=== PATIENT | male | born 1935 | race Caucasian/White ===

== ENCOUNTER → 2016-04-06 | Outpatient (CLI) | payer MEDICARE ==
[~2016-04-06] MED LIST: ASP325T PO; ASP81TEC; ASPI-586 PO; ATR20T PO; AVOD0.5CAP; CALC-250 PO; CALC-6 PO; CEPH-507 PO; CETI-9 PO; CIPR500T4 PO; CIPR500T78 PO; CITA20TA4 PO; CLOP75TA PO; CYCL10TA9 PO; DCS100C PO; DILT60TA PO; DILT90TA PO; DIPH25CA79 PO; DIPH25TA82 PO; DLT30T PO; DOCU100C37 PO; DOCU100T7 PO; FENO135C PO; FERR-57 PO; FESO4TAB2 PO; FINA5TAB PO; FINA5TAB6 PO; FURO40TA4 PO; GARL1500 PO; GARL400T13; GEMF600T3 PO; HYDR-2890 PO; HYDR-3812 PO; HYDR-3876 PO; HYDR-757 PO; HYOS0.1217 PO; LACT1CAP15 PO; LEVO500T69 PO; LEVO50TA6 PO; LORA-726 PO; LOVA40TA2 PO; LRT10T PO; LVF500T GT; LVT.05T PO; MAGN400O7 PO; MAGN400T6 PO; MELO-195 PO; MIRA50TA PO; MTP25TSR PO; MULT-1019 PO; MULT-974 PO; MULT1TAB; MV M PO; NF-SOLIF5T PO; NITR0.4T SL; NITR0.4T39 SL; OMEG1CAP24 PO; OMEG1CAP51 PO; OMG1KC PO; OSLT75C PO; OXYC-12 PO; PHEN100T17 PO; PHEN200T27 PO; POTA10CA43 PO; POTA2TAB15 PO; POTA2TAB5 PO; PRAM0.252 PO; PRAM0.257 PO; PREVAGEN PO; QNS260T PO; ROSU20TA28 PO; SPIR25TA3 PO; SPRN25T PO; TAMS0.4C2 PO; TEMA30CA PO; TERB250T PO; TERB250T10 PO; TMSL.4C PO; TMZP15C PO; TOLT2CAP PO; TRAZ150T72 PO; VITA150T; amox; amox-clav PO
--- OUTSIDE RECORDS SUMMARY | 2016-04-06 11:57 | XMS REPORT | Continuity of Care Document ---
Author Author [facility] Organization [facility] Address Unknown Phone Unavailable Care Team Providers Care Snowblower Mechanic Name Role Phone Min Lindsey PCP [phone] Source Comments Some departments are not documenting in the electronic medical record. If you do not see the information that you expected, contact Release of Information in the Health Information Management department at [phone] for further assistance in locating additional records.[facility] Active Allergies and Adverse Reactions No Known Allergies Current Medications Prescription Sig. Disp. Refills Start End Date Status Date gemfibrozil (LOPID) 600 Take 600 mg by mouth Active mg tablet daily. traZODone (DESYREL) 150 Take 150 mg by mouth at Active mg tablet bedtime daily. lovastatin(+) (MEVACOR) Take 40 mg by mouth at Active 40 mg tablet bedtime daily. levothyroxine (SYNTHROID) Take 50 mcg by mouth Active 50 mcg tablet daily. docusate (COLACE) 100 mg Take by mouth. 100mg in Active capsule the morning and 200mg in evening solifenacin(+) (VESICARE) Take 1 Tab by mouth 30 Tab 3 08/20/19 Active 10 mg tablet daily. 16 pramipexole (MIRAPEX) Take 0.25 mg by mouth Active 0.25 mg tablet twice daily. fish oil /omega-3 fatty Take 2 Caps by mouth Active acids (SEA-OMEGA) daily. 340/1000 mg capsule diphenhydrAMINE Take 25 mg by mouth twice Active (BENADRYL) 25 mg capsule daily. calcium carbonate/vitamin Take 1 Tab by mouth Active D-3 (OSCAL-500+D) 1250 daily. Calcium Carb mg/200 unit tablet 1250mg delivers 500mg elemental Ca vitamins, multiple cap Take 1 Cap by mouth Active daily. tamsulosin (FLOMAX) 0.4 Take 0.4 mg by mouth Active mg capsule daily. Do not crush, chew or open capsules. diltiazem (CARDIZEM) 90 Take 45 mg by mouth at Active mg tablet bedtime daily. for leg cramps cetirizine (ZYRTEC) 10 mg Take 10 mg by mouth Active tablet daily. Indications: SEASONAL ALLERGIC RHINITIS phenazopyridine Take 1 Tab by mouth twice 6 Tab 0 09/15/19 Active (PYRIDIUM) 200 mg tablet daily as needed (take as 16 needed for burning with urination). This will turn your urine orange aspirin EC 81 mg tablet Take 1 Tab by mouth twice 90 Tab 3 09/17/19 Active weekly. Monday and MondayWait 5 days before resuming your aspirin mirabegron(+) ER Take 1 Tab by mouth 30 Tab 3 01/08/20 Active (MYRBETRIQ ER) 50 mg daily. 16 tablet ciprofloxacin HCl (CIPRO) Take 1 Tab by mouth twice 2 Tab 0 03/04/20 Active 500 mg tablet daily. 16 Active Problems Problem Noted Date Malignant neoplasm of overlapping sites of bladder (HCC) 10/02/2015 Bladder cancer (HCC) 03/10/2015 Overview: 02/10/2014: Incedental finding of CIS of the bladder on TURP specimen performed for obstructive LUTS 04/01/14: repeat TURP - no residual disease - No BCG, no recurrent lesions on 3 and 6 month follow up cystoscopies 02/16/15: Cystoscopy: Findings: Bladder wall: inflamed with 3 bladder lesions. 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 Sr - cystoscopy - "red areas" Bothered by irritative voiding symptoms - no lasting benefit from Vesicare. 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 He has elected for observation, which has been performed by Dr. Sr, who has noted areas of redness on surveillance cystoscopy in 05/2015 as well as 07/27/15. Mr. Kennedy is very bothered by irritative voiding symptoms and hasn't noted much benefit from Vesicare. He emptied completely in clinic today with a PVR of 0 mls. We have concern that Mr. Kennedy has residual tumor in his bladder. We have recommended repeat resection with plan for BCG following this. We discussed BCG in depth today and he is willing to proceed now that he understands it is not chemotherapy. - Will plan on proceeding to the OR on 09/15/[address] Ro for blue light cystoscopy, TURBT. - Consent obtained in clinic today after discussing risks and benefits which include infection, bleeding, injury to urethra/bladder/ureter, bladder perforation, need for open surgery/urethral catheter/ureteral stent/blood transfusion/re-operation, inability to remove tumor, heart attack, stroke, deep venous thrombosis, pulmonary embolus, and . Informed consent was obtained. - Pre-anesthesia testing: none - Consults: none - Imaging: none - Antibiotics warehouse insulation worker to the OR: Ancef - Additional medications warehouse insulation worker to the OR: none - We also increased his Vesicare dose and added Mirabegron 50mg daily. - This plan was discussed with Dr. Amaro who directed this plan of care. Most Recent Encounters Date Type Specialty Providers Description 04/01/2016 Telephone Oncology Tasia Amaro, Imaging 04/01/2016 Orders Only Oncology Tasia Amaro Malignant neoplasm of urinary bladder, unspecified site (HCC) (Primary Dx) 04/01/2016 Documentation Tasia Hebert MD 03/14/2016 Telephone Tasia Hebert Results 03/04/2016 Procedure visit UrologTasia Hoffman, Malignant neoplasm of overlapping sites of bladder (HCC) (Primary Dx) 03/04/2016 Hospital Tasia Amaro, Malignant neoplasm of Encounter overlapping sites of bladder 01/08/2016 Refill Tasia Hebert MD 01/08/2016 Telephone Oncology Tasia Amaro, Appointment; Medication MD Refill Immunizations Name Dates Previously Given Next Due Flu Vaccine=>3 YO 01/08/2015 (Historical) Pneumococcal Vaccine 02/08/2015 (23-Delfina Adult) Social History Tobacco Use Types Packs/Day Years Used Date Former Smoker Cigarettes, Cigars 1.5 20 Quit: 03/27/1974 Smokeless Tobacco: Never Used Alcohol Use Drinks/Week oz/Week Comments No Last Filed Vital Signs Vital Sign Reading Time Taken Blood Pressure 92/51 03/04/2016 2:39 PM CROP FARM HELPER Pulse 138 03/04/2016 2:39 PM CROP FARM HELPER Temperature 36.5 C (97.7 F) 09/15/2015 1:15 PM CDT Respiratory Rate - - Height 1.676 m (5' 6") 03/04/2016 2:39 PM CROP FARM HELPER Weight 92.987 kg (205 lb) 03/04/2016 2:39 PM CROP FARM HELPER Body Mass Index 33.1 03/04/2016 2:39 PM CROP FARM HELPER Oxygen Saturation 91% 09/15/2015 1:15 PM CDT Plan of Care Date Type Specialty Providers Description 06/23/2016 Appointment Urology Tasia Amaro MD [address] [facility] [address] [place] [address] [phone] (Fax) Health Maintenance Due Date Last Done Comments Physical (Comprehensive) 1942 Exam Pertussis Vaccine 1945 Tetanus Vaccine 06/19/1951 Shingles Vaccine 1994 Influenza Vaccine 11/26/2015 01/08/2015 Prevnar/Pneumovax (#2) 02/09/2016 02/08/2015 Procedures from Last 3 Months Procedure Name Priority Date/Time Associated Diagnosis Comments [place] CYSTOURETHROSCOPY Routine 03/06/2016 Malignant neoplasm of Results for this 11:48 AM CROP FARM HELPER overlapping sites of procedure are in the bladder (HCC) results section. Results from Last 3 Months CYTOGENETICS SCAN (03/11/2016 3:57 PM) Narrative Ordered by an unspecified provider. CYSTOSCOPY (03/06/2016 11:48 AM) Narrative Tasia Amaro MD 03/06/2016 11:48 AM Date : 03/06/2016 Surgeon: Tasia Amaro MD, [facility] Preoperative Diagnosis: bladder cancer Postoperative Diagnosis: bladder cancer Principal Procedure: Flexible Cystoscopy Description of procedure: After the consent was obtained, the patient was taken to the cystoscopy suite. The patient was patient was placed in the lithotomy position. Two percent lidocaine jelly was administered into the urethral for local anesthesia. The genital area was prepped and draped in the normal sterile fashion. A flexible cystoscope was advanced into the patient's urethra and then into the bladder. The bladder was systematically examined and visualized in its entirety. Both ureteral orifices were note to be normal in appearance and location. No evidence of any tumors was seen. On the right anterior wall of the bladder were some mucosal changes consistent with the previous site of resection but no obivous tumor was seen. The scope was retroflexed and the anterior bladder and bladder neck inspected. Again, no evidence of any tumors was seen. The scope was then removed. The patient tolerated the procedure well. He was given antibiotics to cover the instrumentation. He was discharged from the clinic in stable condition. CHROMOSOMES FISH URINE (03/04/2016 3:32 PM) Component Value Range Chromosomes Fish Urine SEE SENIOR HEALTH EDUCATOR FOR REPORT NON-BRASS WIND INSTRUMENTS TUBE BENDER CYTOLOGY (BODY FLUIDS/TISSUE) (03/04/2016 10:14 AM) Component Value Range Cytology [facility] [email or web address] Leslie Young MD, Director Cytopathology Department of Pathology and Laboratory Medicine [address] [place], [place] [id number] Office: [phone] CYTOLOGY REPORT NAME: LEONID KENNEDY CYTOLOGY #: [id number] MR #: [id number] ALT ID #: [id number] #: [id number] LOCATION: UROL DATE OF PROCEDURE: 03/04/2016 10:14 AGE: 80 SEX: M DATE RECEIVED: 03/07/2016 : 1935 TIME RECEIVED: 10:14 PHYSICIAN: TASIA AMARO MD DATE OF REPORT: 03/09/2016 COPY TO: DATE OF PRINTIN03/09/2016 HISTORY: Date of Last Menstrual Period: None Given Menstrual History: None Given Contraceptive History: None Given Cancer History: None Given Infection History: None Given Treatment History: None Given Other Clinical Conditions: None Given CLINICAL DIAGNOSIS: 80 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 MATERIAL RECEIVED: A: Urine (Voided) ################################################## ###################### Final Diagnosis: A. Urine (Voided): Suspicious for high-grade urothelial carcinoma. Attestation: By this signature, I attest that I have personally formulated the final interpretation expressed in this report and that the above diagnosis is based upon my examination of the slides and/or other material indicated in this report. 03/07/2016 +++Electronically Signed Out By Ramonita Clark MD, Attending Physician+++ Cervical cytology is a SCREENING TEST primarily for detecting cancers and precancerous lesions. This screening test has a well documented false negative rate. Your patient's pap test results should be interpreted in conjunction with history and clinical findings. Reported using [employer] terminology. ################################################## ######################
== END ==
LOC: RAD 11:53
PROVIDERS: ATTEND Urology
DX: C67.9 Malignant neoplasm of bladder, unspecified (principal)

== ENCOUNTER → 2016-04-07 | Outpatient (CLI) | payer MEDICARE ==
[~2016-04-07] MED LIST changes: +CATHETER FLUSH 10 ML SYR IV PRN; +IOHEXOL 350 MG/ML 100 ML (OMNIPAQUE 350) VIAL IV ONE; +NS 100 ML (IVPB) BAG IV ONE
--- OUTSIDE RECORDS SUMMARY | 2016-04-07 07:53 | XMS REPORT | Continuity of Care Document ---
Author Author [facility] Organization [facility] Address Unknown Phone Unavailable Care Team Providers Care Band Sewer Name Role Phone Min Lindsey PCP [phone] Source Comments Some departments are not documenting in the electronic medical record. 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 Sr - cystoscopy - "red areas" Bothered by irritative voiding symptoms - no lasting benefit from Vesicare. 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 [...] Consults: none - Imaging: none - Antibiotics special education teaching assistant to the OR: Ancef - Additional medications special education teaching assistant to the OR: none - We also increased his Vesicare dose and added Mirabegron 50mg daily. - This plan was discussed with Dr. Amaro who directed this plan of care. Most Recent Encounters Date Type Specialty Providers Description 04/06/2016 Orders Only Oncology Tasia Amaro Malignant neoplasm of urinary bladder, unspecified site (HCC) (Primary Dx) 04/01/2016 Telephone Tasia Barrett Imaging 04/01/2016 Orders Only Oncology Tasia Amaro Malignant neoplasm of urinary bladder, unspecified site (HCC) (Primary Dx) 04/01/2016 Documentation Tasia Hebert MD 03/14/2016 Telephone Tasia Hebert Results 03/04/2016 Procedure visit UrologTasia Hoffman Malignant neoplasm of overlapping sites of bladder (HCC) (Primary Dx) 03/04/2016 Hospital Tasia Amaro, Malignant neoplasm of Encounter overlapping sites of bladder 01/08/2016 Refill UrologTasia Hoffman MD 01/08/2016 Telephone Oncology Tasia Amaro, Appointment; [...] Taken Blood Pressure 92/51 03/04/2016 2:39 PM MOLDING UTILITY WORKER Pulse 138 03/04/2016 2:39 PM MOLDING UTILITY WORKER Temperature 36.5 C (97.7 F) 09/15/2015 1:15 PM CDT Respiratory Rate - - Height 1.676 m (5' 6") 03/04/2016 2:39 PM MOLDING UTILITY WORKER Weight 92.987 kg (205 lb) 03/04/2016 2:39 PM MOLDING UTILITY WORKER Body Mass Index 33.1 03/04/2016 2:39 PM MOLDING UTILITY WORKER Oxygen Saturation 91% 09/15/2015 1:15 PM CDT Plan of Care Date Type Specialty Providers Description 06/23/2016 Appointment Urology Tasia Amaro MD [address] [facility] [address] [place] [address] [phone] (Fax) Health Maintenance Due Date Last Done Comments Physical (Comprehensive) 1942 Exam Pertussis Vaccine 1945 Tetanus Vaccine 06/19/1951 Shingles Vaccine 1994 Influenza Vaccine 11/26/2015 01/08/2015 Prevnar/Pneumovax (#2) 02/09/2016 02/08/2015 Procedures from Last 3 Months Procedure Name Priority Date/Time Associated Diagnosis Comments [place] CYSTOURETHROSCOPY Routine 03/06/2016 Malignant neoplasm of Results for this 11:48 AM MOLDING UTILITY WORKER overlapping sites of procedure are in the bladder (HCC) results section. Results from Last 3 Months CYTOGENETICS SCAN (03/11/2016 3:57 PM) Narrative Ordered by an unspecified provider. CYSTOSCOPY (03/06/2016 11:48 AM) Narrative Tasia Amaro MD 03/06/2016 11:48 AM Date : 03/06/2016 Surgeon: Tasia Amaro MD, FACS Preoperative Diagnosis: bladder cancer Postoperative Diagnosis: bladder [...] Component Value Range Chromosomes Fish Urine SEE INTERNET MARKETING EXECUTIVE FOR REPORT NON-PATHOLOGY SPECIALIST CYTOLOGY (BODY FLUIDS/TISSUE) (03/04/2016 10:14 AM) Component Value Range Cytology [facility] [email or web address] Leslie Young MD, Director Cytopathology Department of Pathology and Laboratory Medicine [address] [place] [id number] Office: [phone] CYTOLOGY REPORT NAME: LEONID KENNEDY CYTOLOGY #: [id number] MR #: [id number] ALT ID #: [id number] #: [id number] LOCATION: UROL DATE OF PROCEDURE: 03/04/2016 10:14 [...] and/or other material indicated in this report. mp/03/07/2016 +++Electronically Signed Out By Ramonita Clark MD, Attending Physician+++ Cervical cytology is a SCREENING TEST primarily for detecting cancers and precancerous lesions. This screening test has a well documented false negative rate. Your patient's pap test results should be interpreted in conjunction with history and clinical findings. Reported using [employer] terminology. ################################################## ######################
--- NOTE | 2016-04-07 12:28 | Diagnostic Imaging Report ---
PROCEDURE: CT abdomen and pelvis with and without contrast. TECHNIQUE: Precontrast acquisitions were acquired through the abdomen and pelvis. Multiple contiguous axial images were obtained through the abdomen and pelvis after the administration of intravenous contrast. INDICATION: Bladder cancer. 100 mL of Omnipaque-350 is administered intravenously. COMPARISON: 10/07/2015. FINDINGS: The lung bases demonstrate minimal scarring. The liver has a few subcentimeter hypodense lesions and also hyperenhancing foci up to 1.1 cm in size also similar to the previous exam too small to accurately characterize. These are favored to be benign as they have been stable since July 2014. The gallbladder demonstrates no calcified stone. The spleen is not enlarged. The pancreas and the adrenal glands appear unremarkable. The kidneys have symmetric enhancement and contrast excretion. There are simple-appearing cysts up to 5.5 cm in size in the upper pole of the left kidney. The unenhanced phase demonstrates no kidney stones. There is no hydronephrosis. There is a neobladder with thickened wall seen inferiorly. This represents volume averaging with prostatic tissue as well. This is stable in appearance from multiple prior exams. The abdominal aorta is normal in caliber. No para-aortic significantly enlarged lymph node is seen. No significant free fluid or fluid collection in the abdomen or pelvis is noted. There are several diverticula seen in the sigmoid and descending colon with no evidence of diverticulitis. There are surgical sutures in the splenic flexure region compatible with ileocolic anastomosis. The osseous structures demonstrate degenerative changes. IMPRESSION: 1. Neobladder with soft tissue thickening along its inferior aspect near its interface with the enlarged prostate. This is stable from multiple prior exams and is likely benign. 2. Diverticulosis. No diverticulitis. 3. Multiple tiny foci of enhancement and hypodensity within the liver stable from prior studies likely benign. Dictated by: Dictated on workstation # [id number]
== END ==
LOC: RAD 07:49
PROVIDERS: ATTEND Urology
DX: C67.9 Malignant neoplasm of bladder, unspecified (principal)
CPT/HCPCS: 74178

== ENCOUNTER 2016-06-06 21:27 | Observation (INO) | payer MEDICARE ==
[~2016-06-06] VITALS: Ht 167.6 cm; Wt 93.0 kg
[~2016-06-06 21:27] MED LIST changes: -CATHETER FLUSH 10 ML SYR IV PRN; -IOHEXOL 350 MG/ML 100 ML (OMNIPAQUE 350) VIAL IV ONE; -MIRA50TA PO; -NITR0.4T SL; -NITR0.4T39 SL; -NS 100 ML (IVPB) BAG IV ONE; -POTA2TAB5 PO; -PRAM0.252 PO; -ROSU20TA28 PO
--- OUTSIDE RECORDS SUMMARY | 2016-06-06 21:33 | XMS REPORT | Continuity of Care Document ---
Author Author [facility] Organization [facility] Address Unknown Phone Unavailable Care Team Providers Care Neonatal Icu Coordinator Name Role Phone Min Lindsey PCP [phone] Source Comments Some departments are not documenting in the electronic medical record. If you do not see the information that you expected, contact Release of Information in the Health Information Management department at [phone] for further assistance in locating additional records.[facility] Active Allergies and Adverse Reactions No Known [...] MondayWait 5 days before resuming your aspirin ciprofloxacin HCl (CIPRO) Take 1 Tab by mouth twice 2 Tab 0 03/04/20 Active 500 mg tablet daily. 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 Sr - cystoscopy - "red areas" Bothered by irritative voiding symptoms - no lasting benefit from Vesicare. 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 [...] Consults: none - Imaging: none - Antibiotics insulation extruder operator to the OR: Ancef - Additional medications insulation extruder operator to the OR: none - We also increased his Vesicare dose and added Mirabegron 50mg daily. - This plan was discussed with Dr. Amaro who directed this plan of care. Most Recent Encounters Date Type Specialty Providers Description 04/07/2016 Refill Urology Cory Amaro MD 04/06/2016 Orders Only Oncology Cory Amaro, Malignant neoplasm of urinary bladder, unspecified site (HCC) (Primary Dx) 04/01/2016 Telephone Oncology Cory Amaro Imaging 04/01/2016 Orders Only Oncology Cory Amaro, Malignant neoplasm of urinary bladder, unspecified site (HCC) (Primary Dx) 04/01/2016 Documentation Urology Cory Amaro MD 03/14/2016 Telephone Urology Cory Amaro Results Immunizations Name Dates Previously Given Next Due Flu Vaccine=>3 YO 01/08/2015 (Historical) Pneumococcal Vaccine 02/08/2015 (23-Delfina Adult) Social History Tobacco Use Types Packs/Day Years Used Date Former Smoker Cigarettes, Cigars 1.5 20 Quit: 03/27/1974 Smokeless Tobacco: Never Used Alcohol Use Drinks/Week oz/Week Comments No Last Filed Vital Signs Vital Sign Reading Time Taken Blood Pressure 92/51 03/04/2016 2:39 PM DATA REPORTING ANALYST Pulse 138 03/04/2016 2:39 PM DATA REPORTING ANALYST Temperature 36.5 C (97.7 F) 09/15/2015 1:15 PM CDT Respiratory Rate - - Height 1.676 m (5' 6") 03/04/2016 2:39 PM DATA REPORTING ANALYST Weight 92.987 kg (205 lb) 03/04/2016 2:39 PM DATA REPORTING ANALYST Body Mass Index 33.1 03/04/2016 2:39 PM DATA REPORTING ANALYST Oxygen Saturation 91% 09/15/2015 1:15 PM CDT Plan of Care Date Type Specialty Providers Description 06/23/2016 Appointment Urology Cory Amaro MD [address] [facility] [address] [place] [address] [phone] (Fax) Health Maintenance Due Date Last Done Comments Physical (Comprehensive) 1942 Exam Pertussis Vaccine 1945 Tetanus Vaccine 06/19/1951 Shingles Vaccine 1994 Influenza Vaccine 11/26/2015 01/08/2015 Prevnar/Pneumovax (#2) 02/09/2016 02/08/2015 Results from Last 3 Months CYTOGENETICS SCAN (03/11/2016 3:57 PM) Narrative Ordered by an unspecified provider.
[2016-06-06 21:44] LABS: BASOPHILS % (AUTO) 0 % (0-10); EOSINOPHILS # (AUTO) 0.4 10^3/uL (0.0-0.3); EOSINOPHILS % (AUTO) 7 % (0-10); LYMPHOCYTES % (AUTO) 16 % (12-44); MEAN CORPUSCULAR HEMOGLOBIN 32 PG (25-34); MEAN CORPUSCULAR HGB CONC 34 G/DL (32-36); MEAN CORPUSCULAR VOLUME 92 FL (80-99); MEAN PLATELET VOLUME 9.2 FL (7.4-10.4); MONOCYTES # (AUTO) 0.5 X 10^3 (0.0-1.0); MONOCYTES % (AUTO) 8 % (0-12); NEUTROPHILS # (AUTO) 4.1 X 10^3 (1.8-7.8); NEUTROPHILS % (AUTO) 69 % (42-75); PLATELET COUNT 171 10^3/uL (130-400); RED BLOOD COUNT 4.92 10^6/uL (4.35-5.85); RED CELL DISTRIBUTION WIDTH 13.8 % (10.0-14.5)
[2016-06-06] MEDS ORDERED: RX-NITROGLYCERIN 0.4 MG TAB BTL 25'S SL ONE (21:45)
[2016-06-06 21:50] LABS: INR 1.1 (0.8-1.4)
[2016-06-06 22:01] LABS: ALANINE AMINOTRANSFERASE 31 U/L (0-55); ANION GAP 13 MMOL/L (5-14); BILIRUBIN,TOTAL 0.5 MG/DL (0.1-1.0); BLOOD UREA NITROGEN 19 MG/DL (7-18); BUN/CREATININE RATIO 14; CALCIUM 9.2 MG/DL (8.5-10.1); CARBON DIOXIDE 26 MMOL/L (21-32); CHLORIDE 105 MMOL/L (98-107); CREATININE SERUM 1.37 MG/DL (0.60-1.30); GFR ESTIMATED 50; GLUCOSE 123 MG/DL (70-105); MAGNESIUM 2.2 MG/DL (1.8-2.4); POTASSIUM 3.8 MMOL/L (3.6-5.0); SODIUM 144 MMOL/L (135-145); TOTAL PROTEIN 6.7 G/DL (6.4-8.2)
--- NOTE | 2016-06-06 22:04 | Diagnostic Imaging Report ---
Indication: Dyspnea. Discussion: Single portable upright view of the chest was obtained, comparison 09/07/2015. Borderline cardiomegaly is present. Bilateral mixed interstitial and alveolar infiltrates are now noted, mild edema versus infection. No pleural fluid or pneumothorax. Median sternotomy is stable. Antecedent granulomatous disease is again noted. Impression: 1. New mild bilateral pulmonary infiltrates. Dictated by: Dictated on workstation # [id number]
[2016-06-06 22:22] LABS: ASPARTATE AMINO TRANSFERASE 33 U/L (5-34)
--- NOTE | 2016-06-06 23:35 | ED Cardiac General ---
History of Present Illness General Chief Complaint: Chest Pain Stated Complaint: CP Nursing Triage Note: TO ER WITH REPORTS OF CHEST PAIN THAT STARTED THIS AFTERNOON. PATIENT IS CURRENTLY PAIN FREE. PATIENT TOOK 324MG ASA DEMO EVENT SPECIALIST. Source: patient Exam Limitations: no limitations History of Present Illness Time seen by provider: 23:35 Initial Comments 80 yo male patient presents to the ED with c/o left sided chest pain radiating down the LUE. Patient states he was shoveling dirt this afternoon. States approximately 1 hr after he noticed the pain. Denies SOA, ELISE, numbness, weakness, Abdominal pain, N/V/D, fever, cough, congestion, or fever. Patient has a h/o CABG and stent placement. [place] reports pain is intermittent and feels like a "shooting spasm." Unable to find his home nitroglycerin, but did take 324 mg of ASA. Timing/Duration: intermittent, other (onset this afternoon.) Location: other (left chest radiating down the LUE.) Activities at Onset: other (approx 1 hr after shoveling dirt. ) Prior CP/Workup: cardiac cath, other (prior CABG and stents.) Modifying Factors: improves with other (denies modifying factors. ) NTG SL DEMO EVENT SPECIALIST: No ASA po DEMO EVENT SPECIALIST: Yes (324MG DEMO EVENT SPECIALIST) Allergies and Home Medications Allergies Coded Allergies: NKANo Known Allergies (Verified Allergy, Mild, 11/24/11) Uncoded Allergies: BEE STINGS (Allergy, Severe, SOA/HIVES, 11/01/10) Home Medications 1 TAB PO DAILY (Reported) Aspirin 81 Mg Tablet. 81 MG PO Song (Reported) Calcium Carbonate/Vitamin D3 1 Each Tablet 1 TAB PO BID (Reported) Diltiazem Hcl 90 Mg Tablet 45 MG PO HS (Reported) TAKES 1/2 (90MG) TABLET / TAKES FOR LEG CRAMPS Diphenhydramine HCl 25 Mg Capsule 25 MG PO BID (Reported) Docusate Sodium 100 Mg Capsule 100 MG PO DAILY (Reported) Docusate Sodium 100 Mg Capsule 200 MG PO HS (Reported) TAKES 2 (100 MG) CAPSULES Gemfibrozil 600 Mg Tablet 600 MG PO DAILY (Reported) Hydrocodone/Acetaminophen 1 Each Tablet 1-2 TAB PO Q4H PRN PRN PAIN (Reported) Levothyroxine Sodium 50 Mcg Tablet 50 MCG PO DAILY (Reported) Lovastatin 40 Mg Tablet 40 MG PO HS (Reported) Multivitamin 1 Each Tablet 1 TAB PO DAILY (Reported) Wayne 3 Polyunsat Fatty Acids 1,000 Mg Cap 2,000 MG PO DAILY (Reported) Potassium Gluconate 500 Mg Tablet 500 MG PO UD (Reported) ONLY TAKES WITH SPIRONOLACTONE Pramipexole Di-HCl 0.25 Mg Tablet 0.25 MG PO BID (Reported) Solifenacin Succinate 5 Mg Tablet 5 MG PO HS (Reported) Spironolactone 25 Mg Tablet 25 MG PO DAILY PRN PRN SWELLING (Reported) Tamsulosin HCl 0.4 Mg Cap.er.24h 0.4 MG PO HS (Reported) Trazodone HCl 150 Mg Tablet 150 MG PO HS PRN PRN SLEEP (Reported) Review of Systems Constitutional: No chills, No diaphoresis, No dizziness, No fever, No malaise EENTM: No Symptoms Reported Respiratory: Denies Cough, Denies Orthopnea, Denies Shortness of Air, Denies SOA With Exertion, Denies Wheezing Cardiovascular: See HPI Chest PainDenies Edema, Denies Lightheadedness, Denies Palpitations, Denies Syncope Gastrointestinal: Denies Abdomen Distended, Denies Abdominal Pain, Denies Constipated, Denies Diarrhea, Denies Nausea, Denies Rectal Bleeding, Denies Vomiting Genitourinary: No Symptoms Reported Musculoskeletal: see HPI Skin: no symptoms reported Psychiatric/Neurological: No Symptoms Reported All Other Systems Reviewed Negative Unless Noted: Yes (Negative excepted noted.) Past Nrnnond-Ptljqr-Hsmnzr Hx Patient Social History Alcohol Use: Denies Use Recreational Drug Use: No Smoking Status: Never a Smoker Former Smoker/When Quit: Jun 04, 1976 2nd Hand Smoke Exposure: No Recent Foreign Travel: No Contact w/Someone Who Travel: No Recent Infectious Disease Expo: No Recent Hopitalizations: No Immunizations Up To Date Tetanus Booster (TDap): Less than 5yrs Date of Pneumonia Vaccine: Feb 03, 2015 Date of Influenza Vaccine: Nov 26, 2015 Seasonal Allergies Seasonal Allergies: Yes Surgeries HX Surgeries: Yes (LEFT WRIST, LEFT KNEE SCOPE, TOTAL LEFT KNEE, HEMORRHOIDS, TURP ) Surgeries: Joint Replacement Respiratory Hx Respiratory Disorders: No Cardiovascular Hx Cardiac Disorders: Yes (STENTS X5) Cardiac Disorders: Coronary Artery Disease, Heart Attack, High Cholesterol Neurological Hx Neurological Disorders: No Reproductive System Hx Reproductive Disorders: No Sexually Transmitted Disease: No HIV/AIDS: No Genitourinary Hx Genitourinary Disorders: Yes (UTI) Genitourinary Disorders: Prostate Problems Gastrointestinal Hx Gastrointestinal Disorders: No Musculoskeletal Hx Musculoskeletal Disorders: Yes Musculoskeletal Disorders: Arthritis Endocrine Hx Endocrine Disorders: No HEENT HX ENT Disorders: Yes (FULL SET OF DENTURES) Cancer Hx Cancer: Yes (NOSE) Cancer: Bladder, Prostate Psychosocial Hx Psychiatric Problems: No Integumentary HX Skin/Integumentary Disorder: No Blood Transfusions Hx Blood Disorders: No Adverse Reaction to a Blood Tr: No Reviewed Nursing Assessment Reviewed/Agree w Nursing PMH: Yes Family Medical History Significant Family History: No Pertinent Family Hx Family Medial History: Arthritis 19 FATHER 19 MOTHER Diabetes mellitus 19 FATHER Myocardial infarction 19 FATHER 19 MOTHER Respiratory disorder G8 SISTER No Family History of: AIDS Bill's disease Alcoholism Alzheimer's disease Cancer of mouth Colon cancer Completed stroke Dementia Kidney disease Parkinson's disease Prostate cancer Psychosocial problem Seizure disorder Severe allergy Thyroid disease Tuberculosis Physical Exam Vital Signs Vital Sign - Last 12Hours 06/06/16 21:32 Temp 98.4 Pulse 75 Resp 18 B/P 141/70 Pulse Ox 95 O2 Delivery Room Air Capillary Refill : Less Than 3 Seconds General Appearance: No Apparent Distress WD/WN HEENT: PERRL/EOMI Pharynx Normal Neck: Normal Inspection Supple Respiratory: Chest Non Tender Lungs Clear Normal Breath Sounds No Respiratory Distress Cardiovascular: Regular Rate, Rhythm No Murmur Normal Peripheral Pulses Gastrointestinal: Normal Bowel Sounds No Organomegaly Non Tender SoftNo Distended Extremity: Normal Capillary Refill No Calf Tenderness Pedal Edema (1+ pedal edema) Neurologic/Psychiatric: Alert Oriented x3 Normal Mood/Affect Skin: Normal Color Warm/Dry Focused Exam Lactic Acid Level Laboratory Tests Test 06/06/16 21:30 Alanine Aminotransferase (ALT/SGPT) 31U/L (0-55) Albumin 4.0G/DL (3.2-4.5) Alkaline Phosphatase 76U/L (40-136) Anion Gap 13MMOL/L (5-14) Aspartate Amino Transf (AST/SGOT) 33U/L (5-34) BUN/Creatinine Ratio 14 Blood Urea Nitrogen 19MG/DL (7-18) H Calcium Level 9.2MG/DL (8.5-10.1) Carbon Dioxide Level 26MMOL/L (21-32) Chloride Level 105MMOL/L (98-107) Creatinine 1.37MG/DL (0.60-1.30) H Estimat Glomerular Filtration Rate 50 Glucose Level 123MG/DL (70-105) H Magnesium Level 2.2MG/DL (1.8-2.4) Myoglobin 323.0NG/ML (10.0-92.0) H Potassium Level 3.8MMOL/L (3.6-5.0) Sodium Level 144MMOL/L (135-145) Total Bilirubin 0.5MG/DL (0.1-1.0) Total Protein 6.7G/DL (6.4-8.2) Troponin I < 0.30NG/ML (<0.30) Laceration Repair : Suture Size: 4-0 Progress/Results/Core Measures Results/Orders Lab Results Laboratory Tests Test 06/06/16 21:30 Range/Units Activated Partial Thromboplast Time 28 24-35 SEC Alanine Aminotransferase (ALT/SGPT) 31 0-55 U/L Albumin 4.0 3.2-4.5 G/DL Alkaline Phosphatase 76 40-136 U/L Anion Gap 13 5-14 MMOL/L Aspartate Amino Transf (AST/SGOT) 33 5-34 U/L BUN/Creatinine Ratio 14 Basophils # (Auto) 0.0 0.0-0.1 10^3/uL Basophils (%) (Auto) 0 0-10 % Blood Urea Nitrogen 19 H 7-18 MG/DL Calcium Level 9.2 8.5-10.1 MG/DL Carbon Dioxide Level 26 21-32 MMOL/L Chloride Level 105 98-107 MMOL/L Creatinine 1.37 H 0.60-1.30 MG/DL D-Dimer 0.27 0.00-0.49 UG/ML Eosinophils # (Auto) 0.4 H 0.0-0.3 10^3/uL Eosinophils (%) (Auto) 7 0-10 % Estimat Glomerular Filtration Rate 50 Glucose Level 123 H 70-105 MG/DL Hematocrit 45 40-54 % Hemoglobin 15.5 13.3-17.7 G/DL INR Comment 1.1 0.8-1.4 Lymphocytes # (Auto) 1.0 1.0-4.0 X 10^3 Lymphocytes (%) (Auto) 16 12-44 % Magnesium Level 2.2 1.8-2.4 MG/DL Mean Corpuscular Hemoglobin 32 25-34 PG Mean Corpuscular Hemoglobin Concent 34 32-36 G/DL Mean Corpuscular Volume 92 80-99 FL Mean Platelet Volume 9.2 7.4-10.4 FL Monocytes # (Auto) 0.5 0.0-1.0 X 10^3 Monocytes (%) (Auto) 8 0-12 % Myoglobin 323.0 H 10.0-92.0 NG/ML Neutrophils # (Auto) 4.1 1.8-7.8 X 10^3 Neutrophils (%) (Auto) 69 42-75 % Platelet Count 171 130-400 10^3/uL Potassium Level 3.8 3.6-5.0 MMOL/L Prothrombin Time 14.0 12.2-14.7 SEC Red Blood Count 4.92 4.35-5.85 10^6/uL Red Cell Distribution Width 13.8 10.0-14.5 % Sodium Level 144 135-145 MMOL/L Total Bilirubin 0.5 0.1-1.0 MG/DL Total Protein 6.7 6.4-8.2 G/DL Troponin I < 0.30 <0.30 NG/ML White Blood Count 6.0 4.3-11.0 10^3/uL My Orders Orders-ASHLY VASQUEZ Ns Iv 1000 Ml (Sodium Chloride 0.9%) (06/07/16 00:04) Medications Given in ED Current Medications Medications Dose Ordered Sig/Fahad Route Start Time Stop Time Status Last Admin Dose Admin Sodium Chloride 1,000 ml @ 0 mls/hr Q0M ONCE IV 06/07/16 00:04 06/07/16 00:05 DC 06/07/16 00:13 999 MLS/HR Vital Signs/I&O Vital Sign - Last 12Hours 06/06/16 06/06/16 06/06/16 21:32 21:32 21:33 Temp 98.4 Pulse 75 Resp 18 B/P 141/70 Pulse Ox 95 95 O2 Delivery Room Air Room Air Room Air Blood Pressure Mean: 93 ECG Initial ECG Impression Date: Jun 06, 2016 Initial ECG Impression Time: 21:33 Initial ECG Rate: 76 Initial ECG Rhythm: Normal Sinus Initial ECG Comparisson: Unchanged Comment sinus rhythm with incomplete bundle branch block. No STEMI or arrhythmia. ECG reviewed and discussed with Dr. Mojica. Diagnostic Imaging Diagonstic Imaging: Xray Plain Films/CT/US/NM/MRI: chest Comments Discussion: Single portable upright view of the chest was obtained, comparison . Borderline cardiomegaly is present. Bilateral mixed interstitial and alveolar infiltrates are now noted, mild edema versus infection. No pleural fluid or pneumothorax. Median sternotomy is stable. Antecedent granulomatous disease is again noted. Impression: 1. New mild bilateral pulmonary infiltrates. Dictated by: Dictated on workstation # [id number] Reviewed: Reviewed by Me (radiology report reviewed) Departure Communication Time/Spoke to Admitting Phy: 00:[address] Washington accepts patient to his internal medicine service for IVF, cardiology consult and further evaluation. Progress Notes CXR shows mild basilar infiltrates vs mild edema. Patient denies cough, congestion, SOA, ELISE, or fever. Findings most likely related to mild edema. All laboratory findings, diagnostic findings, and plan for admission discussed with the patient and spouse. Both voice understanding and agree with the treatment plan. Patient case discussed with Dr. Ibrahim, he agrees with the plan of care. Impression Impression: Primary Impression: Chest pain Additional Impressions: Coronary artery disease Renal insufficiency Disposition: ADMITTED INPATIENT Condition: Stable Decision to Admit Reason: Admit from ER (General) Decision to Admit/Date: Jun 06, 2016 Time/Decision to Admit Time: 00:05 Departure-Patient Inst. Referrals: BLAKE BOYCE MD (PCP/Family) Primary Care Physician Copy Copies To 1: BLAKE BOYCE MD, GRETCHEN L PA Jun 06, 2016 23:35
[2016-06-07] VITALS (8 sets, daily range): BP systolic 130–173; BP diastolic 70–92
[2016-06-07] MEDS ORDERED: NS IV 1000 ML 1,000 ML IV ONE (00:04)
[2016-06-07] MEDS ORDERED: NITROGLYCERIN SUBLINGUAL 0.4 MG TAB (NITROSTAT) SL PRN ×2 (02:00→12:00)
[2016-06-07 03:37] LABS: BASOPHILS % (AUTO) 1 % (0-10); EOSINOPHILS # (AUTO) 0.5 10^3/uL (0.0-0.3); EOSINOPHILS % (AUTO) 10 % (0-10); LYMPHOCYTES # (AUTO) 0.7 X 10^3 (1.0-4.0); LYMPHOCYTES % (AUTO) 14 % (12-44); MEAN CORPUSCULAR HEMOGLOBIN 32 PG (25-34); MEAN CORPUSCULAR HGB CONC 34 G/DL (32-36); MEAN CORPUSCULAR VOLUME 93 FL (80-99); MEAN PLATELET VOLUME 9.2 FL (7.4-10.4); MONOCYTES # (AUTO) 0.5 X 10^3 (0.0-1.0); MONOCYTES % (AUTO) 10 % (0-12); NEUTROPHILS # (AUTO) 3.1 X 10^3 (1.8-7.8); NEUTROPHILS % (AUTO) 66 % (42-75); PLATELET COUNT 158 10^3/uL (130-400); RED BLOOD COUNT 4.55 10^6/uL (4.35-5.85); RED CELL DISTRIBUTION WIDTH 13.7 % (10.0-14.5); WHITE BLOOD COUNT 4.8 10^3/uL (4.3-11.0)
[2016-06-07 03:58] LABS: ALBUMIN 3.6 G/DL (3.2-4.5); BILIRUBIN,TOTAL 0.5 MG/DL (0.1-1.0); CALCIUM 8.7 MG/DL (8.5-10.1); CREATININE SERUM 1.17 MG/DL (0.60-1.30); POTASSIUM 3.6 MMOL/L (3.6-5.0)
[2016-06-07] MEDS ORDERED: NS IV 1000 ML 1,000 ML IV SCH (05:00)
[2016-06-07] MEDS ORDERED: morphine INJ 4 MG/ML 1 ML (VIAL/SYRINGE) IVP PRN (05:00)
[2016-06-07] MEDS ORDERED: DILT90TA PO (08:27)
[2016-06-07] MEDS ORDERED: ROSU20TA28 PO (08:27)
[2016-06-07] MEDS ORDERED: MIRA50TA PO (08:27)
[2016-06-07] MEDS ORDERED: CATHETER FLUSH 10 ML SYR IV PRN (08:45)
[2016-06-07] MEDS ORDERED: ASPIRIN E.C. 325 MG (ECOTRIN) TABLET PO SCH (09:00)
[2016-06-07] MEDS ORDERED: CYCL10TA9 PO (11:45)
[2016-06-07] MEDS ORDERED: FURO40TA4 PO (11:45)
[2016-06-07] MEDS ORDERED: POTA2TAB5 PO (11:45)
[2016-06-07] MEDS ORDERED: NITR0.4T SL (11:45)
[2016-06-07] MEDS ORDERED: PRAM0.252 PO (11:45)
--- NOTE | 2016-06-07 11:52 | Short Stay Summary-Hospitalist ---
HPI History of Present Illness: HPI/Chief Complaint The patient's an 80-year-old white male known to me for at least 20 years. He and his report that he had been moving topsoil to fill holes in the yard. This occurred yesterday between the hours of 14 00 and 17 00. He was scooping from a pickup bed into a wheelbarrow and then rolling the wheelbarrow to the appropriate place, dumping, and filling the whole. At about 1700 he began to feel weary and with some sense of palpitations. He stopped and went into the house and continued to have this sense and also a fleeting lightninglike pain. This occurred several times and then he had a longer heavier pressure since. He reported this to his who is a retired cardiac care nurse. He had a fresh bottle of nitroglycerin but it could not be found. They then came to the emergency room and we are admitted for observation. He normally sees Dr. Desai a revenue specialist in [place]. He had a catheter with multiple stents placed 7 years ago. His last visit with Dr. Desai was about 6 months ago. Source: patient, family Exam Limitations: no limitations Date Seen 06/07/16 Attending Physician Errol Peter MD PCP Min Lindsey MD Referring Physician Date of Admission Jun 07, 2016 at 00:30 Home Medications & Allergies Home Medications Reviewed patient Home Medication Reconciliation Form Allergies Coded Allergies: NKANo Known Allergies (Verified Allergy, Mild, 11/24/11) Uncoded Allergies: BEE STINGS (Allergy, Severe, SOA/HIVES, 11/01/10) Past Twpmfvh-Udoxer-Obwnjl Hx Patient Social History Alcohol Use: Denies Use Recreational Drug Use: No Smoking Status: Former Smoker Former smoker/When Quit: Jun 04, 1976 2nd Hand Smoke Exposure: No Physical Abuse Screen: No Sexual Abuse: No Recent Foreign Travel: No Contact w/other who traveled: No Recent Hopitalizations: No Recent Infectious Disease Expo: No Immunizations Up To Date Tetanus Booster (TDap): Less than 5yrs Date of Pneumonia Vaccine: Feb 03, 2015 Date of Influenza Vaccine: Nov 26, 2015 Seasonal Allergies Seasonal Allergies: Yes Surgeries HX Surgeries: Yes (LEFT WRIST, LEFT KNEE SCOPE, TOTAL LEFT KNEE, HEMORRHOIDS, TURP ) Surgeries: Joint Replacement Respiratory Hx Respiratory Disorders: No Cardiovascular Hx Cardiovascular Disorders: Yes (STENTS X5) Cardiac Disorders: Coronary Artery Disease, Heart Attack, High Cholesterol Neurological Hx Neurological Disorders: No Reproductive System Hx Reproductive Disorders: No Sexually Transmitted Disease: No HIV/AIDS: No Genitourinary Hx Genitourinary Disorders: Yes (UTI) Genitourinary Disorders: Prostate Problems Gastrointestinal Hx Gastrointestinal Disorders: No Musculoskeletal Hx Musculoskeletal Disorders: Yes Musculoskeletal Disorders: Arthritis Endocrine Hx Endocrine Disorders: No HEENT HX ENT Disorders: Yes (FULL SET OF DENTURES) Hearing Impairment: Denies, Hearing Aide Right, Hearing Aide Left Cancer Hx Cancer: Yes (NOSE) Cancer: Bladder, Prostate Psychosocial Hx Psychiatric Problems: No Integumentary HX Skin/Integumentary Disorder: No Blood Transfusions Hx Blood Disorders: No Adverse Reaction to a Blood Tr: No Reviewed Nursing Assessment Reviewed/Agree w Nursing PMH: Yes Family Medical History Significant Family History: No Pertinent Family Hx Family Hx: Arthritis 19 FATHER 19 MOTHER Diabetes mellitus 19 FATHER Myocardial infarction 19 FATHER 19 MOTHER Respiratory disorder G8 SISTER No Family History of: AIDS Kem[place]'s disease Alcoholism Alzheimer's disease Cancer of mouth Colon cancer Completed stroke Dementia Kidney disease Parkinson's disease Prostate cancer Psychosocial problem Seizure disorder Severe allergy Thyroid disease Tuberculosis Review of Systems Constitutional: see HPI EENTM: no symptoms reported Respiratory: no symptoms reported Cardiovascular: see HPI Gastrointestinal: no symptoms reported Genitourinary: other Musculoskeletal: no symptoms reported Skin: no symptoms reported Psychiatric/Neurological: No Symptoms Reported Physical Exam Physical Exam Vital Signs Vital Sign - Last 12Hours 06/06/16 06/07/16 21:32 02:26 Temp 98.4 Pulse 75 Resp 18 B/P 141/70 Pulse Ox 95 O2 Delivery Room Air O2 Flow Rate 2.00 Capillary Refill : Less Than 3 Seconds General Appearance: No Apparent Distress WD/WN Eyes: Bilateral Eye Normal Inspection Neck: Normal Inspection Respiratory: Chest Non Tender Lungs Clear Normal Breath Sounds No Accessory Muscle Use No Respiratory Distress Cardiovascular: Regular Rate, Rhythm No Edema No Gallop No JVD No Murmur Normal Peripheral Pulses Gastrointestinal: Normal Bowel Sounds No Organomegaly No Pulsatile Mass Non Tender Soft Back: Normal Inspection No CVA Tenderness No Vertebral Tenderness Extremity: Normal Capillary Refill Normal Inspection Normal Range of Motion Non Tender No Calf Tenderness No Pedal Edema Neurologic/Psychiatric: Alert Oriented x3 No Motor/Sensory Deficits Normal Mood/Affect Skin: Normal Color Warm/Dry Lymphatic: No Adenopathy Results Results/Procedures Lab Laboratory Tests 06/06/16 21:30 06/07/16 03:28 Short Stay Diagnosis Discharge Diagnosis-Short Stay Admission Diagnosis Chest pain rule out SD. 2.history of bladder cancer. 3.hyperlipidemia Final Discharge Diagnosis Chest pain with negative troponin. 2.history of bladder cancer. 3.hyperlipidemia Conclusion Plan The patient will be dismissed. He will receive a new bottle of nitroglycerin. They have arranged to see Dr. Desai at 0930 on 06/13 Clinical Quality Measures AMI/AHF: ASA po Prior to arrival: Yes (324MG INSPECTOR HOT FORGINGS) DVT/VTE Risk/Contraindication: Risk Factor Score Per Nursin RFS Level Per Nursing on Admit: 4+=Very High ERROL PETER MD Jun 07, 2016 11:52
[2016-06-07] MEDS ORDERED: NITR0.4T39 SL (11:59)
[2016-06-07] MEDS ORDERED: traZODone 150 MG (DESYREL) TABLET PO PRN (12:00)
[2016-06-07] MEDS ORDERED: FUROSEMIDE 40 MG (LASIX) TAB PO PRN (12:00)
[2016-06-07] MEDS ORDERED: CYCLOBENZAPRINE 10 MG (FLEXERIL) TAB PO PRN (12:00)
--- NOTE | 2016-06-07 12:01 | Discharge Inst-Simple/Standard ---
Discharge Inst-Standard Discharge Medications New, Converted or Re-Newed RX: Transmitted to Pharmacy Patient Instructions/Follow Up Plan of Care/Instructions/FU: Keep appointment with Dr. Desai for Tuesday 06/13 at 0930 Activity as tolerated, be prepared to back off Medications as on the discharge list Activity as Tolerated: Yes Goal: Usual activity without incurring chest pain Discharge Diet: Cardiac Diet Return to The Hospital For: Recurrent chest pain YULIET PETER MD Jun 07, 2016 12:01
[2016-06-07] MEDS ORDERED: TROSPIUM 20 MG (SANCTURA) TAB PO SCH (16:00)
[2016-06-07] MEDS ORDERED: ALFUZOSIN HCL 10 MG TAB (UROXATRAL) PO SCH (18:00)
[2016-06-07] MEDS ORDERED: DOCUSATE SODIUM 100 MG (COLACE) CAP PO SCH (21:00)
[2016-06-07] MEDS ORDERED: ROSUVASTATIN 20 MG (CRESTOR) TABLET PO SCH (21:00)
[2016-06-08] MEDS ORDERED: LEVOTHYROXINE 50 MCG (LEVOTHROID) TAB PO SCH (06:30)
[2016-06-08] MEDS ORDERED: OMEGA 3 (FISH OIL) 1000 MG CAP PO SCH (09:00)
[2016-06-08] MEDS ORDERED: GEMFIBROZIL 600 MG (LOPID) TAB PO SCH (09:00)
[2016-06-08] MEDS ORDERED: MULTIVIT W/MINERALS TAB (THERAGRAN M) PO SCH (09:00)
[2016-06-08] MEDS ORDERED: DOCUSATE SODIUM 100 MG (COLACE) CAP PO SCH (09:00)
[2016-06-11] MEDS ORDERED: ASPIRIN E.C. 81 MG (ECOTRIN) TAB PO SCH (09:00)
== END 2016-06-07 12:38 | disposition home or self-care (01) ==
LOC: EDUNIT# 21:27 → ER 21:29 → UNDOADMOB 06-07 00:30 → 4TH 06-07 00:30 → UNDODISOB 06-07 13:09
PROVIDERS: ADMIT Internal Medicine; ATTEND Internal Medicine
DX: R07.9 Chest pain, unspecified (principal); I25.10 Atherosclerotic heart disease of native coronary artery without angina pectoris; E78.5 Hyperlipidemia, unspecified; N28.9 Disorder of kidney and ureter, unspecified; Z87.891 Personal history of nicotine dependence; Z85.51 Personal history of malignant neoplasm of bladder; Z95.1 Presence of aortocoronary bypass graft; Z95.5 Presence of coronary angioplasty implant and graft; Z79.899 Other long term (current) drug therapy
CPT/HCPCS: 36415; 71010; 80053; 80061; 83735; 83874; 84484; 85025; 85379; 85610; 85730; 93005; 93041; 96360; G0378

== ENCOUNTER 2016-08-20 09:48 | Emergency (ER) | payer MEDICARE ==
[~2016-08-20] VITALS: Ht 167.6 cm; Wt 90.7 kg
[~2016-08-20 09:48] MED LIST changes: +MIRA50TA PO; +NITR0.4T SL; +NITR0.4T39 SL; +POTA2TAB5 PO; +PRAM0.252 PO; +ROSU20TA28 PO
--- NOTE | 2016-08-20 12:03 | ED General ---
General Chief Complaint: Lower Extremity Stated Complaint: SWELLING IN R ANKLE Nursing Triage Note: pt had radical cystectomy last week. he has swelling in right ankle. concerned about blood clots. would like to have both ankles checked. Nursing Sepsis Screen: No Definite Risk Source of Information: Patient, Spouse Exam Limitations: No Limitations History of Present Illness Time Seen by Provider: 11:45 Initial Comments 81-year-old male patient presents to the emergency department complains of bilateral ankle swelling. Patient had a radical cystectomy with cystostomy placement last week. Denies shortness of air, chest pain, claudication, or fever. Location Injury Occurred: denies known injury Timing/Duration: 2-3 Days, Getting Worse Modifying Factors: worse with Other (denies modifying factors) Allergies and Home Medications Allergies Coded Allergies: NKANo Known Allergies (Verified Allergy, Mild, 11/24/11) Uncoded Allergies: BEE STINGS (Allergy, Severe, SOA/HIVES, 11/01/10) Home Medications Aspirin 81 Mg Tablet.dr, 81 MG PO TuSa, (Reported) Calcium Carbonate/Vitamin D3 1 Each Tablet, 1 TAB PO BID, (Reported) Cyclobenzaprine HCl 10 Mg Tablet, 10 MG PO BID PRN for MUSCLE SPASMS, (Reported) Diltiazem HCl 90 Mg Tablet, 45 MG PO HS, (Reported) TAKES 1/2 OF A (90 MG) TABLET / TAKES FOR LEG CRAMPS Diphenhydramine HCl 25 Mg Capsule, 25 MG PO BID, (Reported) Docusate Sodium 100 Mg Capsule, 100 MG PO DAILY, (Reported) Docusate Sodium 100 Mg Capsule, 200 MG PO HS, (Reported) TAKES 2 (100 MG) CAPSULES Furosemide 40 Mg Tablet, 40 MG PO DAILY PRN for PITTING EDEMA, (Reported) Gemfibrozil 600 Mg Tablet, 600 MG PO DAILY, (Reported) Hydrocodone/Acetaminophen 1 Each Tablet, 1 TAB PO EVERY 4-6 HOURS PRN for PAIN, (Reported) Levothyroxine Sodium 50 Mcg Tablet, 50 MCG PO DAILY, (Reported) Mirabegron 50 Mg Tab.er.24h, 50 MG PO DAILY@1200, (Reported) Multivitamin 1 Each Tablet, 1 TAB PO DAILY, (Reported) Nitroglycerin 0.4 Mg Tab.subl, 0.4 MG SL UD PRN for CHEST PAIN, (Reported) 1 TAB EVERY 5 MINUTES UP TO 3 DOSES WITHIN 15 MINUTES; CALL 911 IF NO RELIEF Nitroglycerin 0.4 Mg Tab.subl, 0.4 MG SL when necessary, #30 Prescribed by: YULIET PETER on 06/07/16 [address] [place] 3 Polyunsat Fatty Acids 1,000 Mg Cap, 2,000 MG PO DAILY, (Reported) Potassium Gluconate 90 Mg Tablet, 90 MG PO UD, (Reported) ONLY TAKES WITH FUROSEMIDE Pramipexole Di-HCl 0.25 Mg Tablet, 0.25 MG PO DAILY, (Reported) Pramipexole Di-HCl 0.25 Mg Tablet, 0.5 MG PO HS, (Reported) TAKES 2 (0.25 MG) TABLETS Rosuvastatin Calcium 20 Mg Tablet, 20 MG PO HS, (Reported) Solifenacin Succinate 5 Mg Tablet, 5 MG PO DAILY@1200, (Reported) Tamsulosin HCl 0.4 Mg Cap.er.24h, 0.4 MG PO HS, (Reported) Trazodone HCl 150 Mg Tablet, 150 MG PO HS PRN for SLEEP, (Reported) [Prevagen] , 1 TAB PO DAILY, (Reported) Constitutional: No chills, No diaphoresis, No dizziness, No fever, No malaise EENTM: no symptoms reported Respiratory: No cough, No dyspnea on exertion, No orthopnea, No short of breath , No wheezing Cardiovascular: No chest pain, edema, No palpitations, No syncope Gastrointestinal: No abdominal pain, No constipation, No diarrhea, No nausea, No vomiting Genitourinary: no symptoms reported Musculoskeletal: no symptoms reported Skin: no symptoms reported Psychiatric/Neurological: No Symptoms Reported All Other Systems Reviewed Negative Unless Noted: Yes (Negative excepted noted.) Past Vbsnufh-Zapile-Bvhtio Hx Patient Social History Former Smoker/When Quit: Jun 04, 1976 2nd Hand Smoke Exposure: No Recent Foreign Travel: No Contact w/Someone Who Travel: No Recent Infectious Disease Expo: No Recent Hopitalizations: No Immunizations Up To Date Tetanus Booster (TDap): Less than 5yrs Date of Pneumonia Vaccine: Feb 03, 2015 Date of Influenza Vaccine: Nov 26, 2015 Seasonal Allergies Seasonal Allergies: Yes Surgeries HX Surgeries: Yes (LEFT WRIST, LEFT KNEE SCOPE, TOTAL LEFT KNEE, HEMORRHOIDS, TURP , cystectomy w/ cystostomy placement.) Surgeries: Joint Replacement Respiratory Hx Respiratory Disorders: No Cardiovascular Hx Cardiac Disorders: Yes (STENTS X5) Cardiac Disorders: Coronary Artery Disease, Heart Attack, High Cholesterol Neurological Hx Neurological Disorders: No Reproductive System Hx Reproductive Disorders: No Sexually Transmitted Disease: No HIV/AIDS: No Genitourinary Hx Genitourinary Disorders: Yes (UTI) Genitourinary Disorders: Prostate Problems Gastrointestinal Hx Gastrointestinal Disorders: No Musculoskeletal Hx Musculoskeletal Disorders: Yes Musculoskeletal Disorders: Arthritis Endocrine Hx Endocrine Disorders: No HEENT HX ENT Disorders: Yes (FULL SET OF DENTURES) Hearing Impairment: Denies, Hearing Aide Right, Hearing Aide Left Cancer Hx Cancer: Yes (NOSE) Cancer: Bladder, Prostate Psychosocial Hx Psychiatric Problems: No Integumentary HX Skin/Integumentary Disorder: No Blood Transfusions Hx Blood Disorders: No Adverse Reaction to a Blood Tr: No Reviewed Nursing Assessment Reviewed/Agree w Nursing PMH: Yes Family Medical History Significant Family History: No Pertinent Family Hx Family Medial History: Arthritis 19 FATHER 19 MOTHER Diabetes mellitus 19 FATHER Myocardial infarction 19 FATHER 19 MOTHER Respiratory disorder G8 SISTER No Family History of: AIDS Bill's disease Alcoholism Alzheimer's disease Cancer of mouth Colon cancer Completed stroke Dementia Kidney disease Parkinson's disease Prostate cancer Psychosocial problem Seizure disorder Severe allergy Thyroid disease Tuberculosis Physical Exam Vital Signs Vital Sign - Last 12Hours 08/20/16 08/20/16 10:21 13:23 Temp 96.9 Pulse 96 Resp 16 B/P (MAP) 115/63 Pulse Ox 98 Capillary Refill : Less Than 3 Seconds General Appearance: No Apparent Distress, WD/WN HEENT: PERRL/EOMI, Pharynx Normal Neck: Normal Inspection, Supple Respiratory: Lungs Clear, Normal Breath Sounds, No Respiratory Distress Cardiovascular: Regular Rate, Rhythm, No Murmur, Normal Peripheral Pulses Gastrointestinal: Non Tender, Soft, No Distended, Other (CYSTOSTOMY stoma pink. no evidence of cellulitis. urine noted in ostomy bag.) Extremity: Normal Capillary Refill, Normal Range of Motion, Non Tender, No Calf Tenderness, Pedal Edema (2+ pedal edema bilaterally) Neurologic/Psychiatric: Alert, Oriented x3, Normal Mood/Affect Skin: Normal Color, Warm/Dry Laceration Repair : Suture Size: 4-0 Progress/Results/Core Measures Results/Orders My Orders Orders - ASHLY VASQUEZ Us Venous Lower Ext Cecy (08/20/16 11:23) Vital Signs/I&O Vital Sign - Last 12Hours 08/20/16 13:23 Temp 96.9 Pulse 84 Resp 16 Pulse Ox 98 Blood Pressure Mean: 80 Diagnostic Imaging Diagonstic Imaging: Ultrasound Plain Films/CT/US/NM/MRI: leg Comments US VENOUS LOWER EXT ECCY INDICATION: Leg swelling. COMPARISON: None FINDINGS: The right and left common femoral vein, superficial femoral vein and popliteal veins appear patent and compressible. No visible thrombus is seen. There is normal variability with augmentation. IMPRESSION: There is no evidence of deep venous thrombosis within either lower extremity. Dictated by: Dictated on workstation # [id number] Reviewed: Reviewed by Me (radiology report reviewed by me) Departure Communication Progress Notes Diagnostic findings discussed with the patient. Plan for discharge to home Impression Impression: Primary Impression: Pedal edema Additional Impression: H/O total cystectomy Disposition: HOME, SELF-CARE Condition: Improved Departure-Patient Inst. Decision time for Depature: 13:12 Referrals: BLAKE LINDSEY MD (PCP/Family) Primary Care Physician Patient Instructions: Swelling Add. Discharge Instructions: All discharge instructions reviewed with patient and/or family. Voiced understanding. Use your home lasix 20 mg by mouth daily 3 days. Also use home potassium. Continue usual home medications. Elevate the lower extremities above the level of the heart. Compression socks as instructed throughout the day. Follow-up with Dr. Lindsey this week as previously scheduled. Follow-up with your surgeon as previously scheduled. Return to the emergency department immediately for worsened swelling, pain, shortness of air, chest pain, dizziness, redness, fever, or any other concerns. ASHLY VASQUEZ August 20, 2016 12:03
--- NOTE | 2016-08-20 12:30 | Diagnostic Imaging Report ---
INDICATION: Leg swelling. COMPARISON: None FINDINGS: The right and left common femoral vein, superficial femoral vein and popliteal veins appear patent and compressible. No visible thrombus is seen. There is normal variability with augmentation. IMPRESSION: There is no evidence of deep venous thrombosis within either lower extremity. Dictated by: Dictated on workstation # [id number]
[2016-08-20 13:23] VITALS: BP 161/73
== END 2016-08-20 13:23 | disposition home or self-care (01) ==
LOC: EDUNIT# 09:48 → ER 09:50
DX: R60.0 Localized edema (principal); I25.10 Atherosclerotic heart disease of native coronary artery without angina pectoris; Z79.82 Long term (current) use of aspirin; Z79.899 Other long term (current) drug therapy; Z98.890 Other specified postprocedural states; Z90.6 Acquired absence of other parts of urinary tract
CPT/HCPCS: 93970; 99283

== ENCOUNTER 2016-08-29 12:41 | Emergency (ER) | payer MEDICARE ==
[~2016-08-29] VITALS: Ht 167.6 cm; Wt 90.7 kg
[2016-08-29 14:26] LABS: BASOPHILS % (AUTO) 0 % (0-10); EOSINOPHILS # (AUTO) 0.2 10^3/uL (0.0-0.3); EOSINOPHILS % (AUTO) 4 % (0-10); LYMPHOCYTES # (AUTO) 0.5 X 10^3 (1.0-4.0); LYMPHOCYTES % (AUTO) 10 % (12-44); MEAN CORPUSCULAR HEMOGLOBIN 30 PG (25-34); MEAN CORPUSCULAR HGB CONC 32 G/DL (32-36); MEAN CORPUSCULAR VOLUME 92 FL (80-99); MEAN PLATELET VOLUME 8.4 FL (7.4-10.4); MONOCYTES # (AUTO) 0.5 X 10^3 (0.0-1.0); MONOCYTES % (AUTO) 11 % (0-12); NEUTROPHILS # (AUTO) 3.5 X 10^3 (1.8-7.8); NEUTROPHILS % (AUTO) 75 % (42-75); PLATELET COUNT 339 10^3/uL (130-400); RED BLOOD COUNT 3.79 10^6/uL (4.35-5.85); WHITE BLOOD COUNT 4.6 10^3/uL (4.3-11.0)
[2016-08-29 14:48] LABS: ALBUMIN 3.2 G/DL (3.2-4.5); BILIRUBIN,TOTAL 0.2 MG/DL (0.1-1.0); CALCIUM 8.9 MG/DL (8.5-10.1); CREATININE SERUM 1.32 MG/DL (0.60-1.30); POTASSIUM 3.7 MMOL/L (3.6-5.0); TOTAL PROTEIN 5.9 G/DL (6.4-8.2)
--- NOTE | 2016-08-29 14:54 | ED General ---
General Chief Complaint: Dizziness/Syncope Stated Complaint: DIZZINESS Nursing Triage Note: c/o dizziness and malaise. states he is not acting himself. Low grade fever noted with initial triage. Hx of bladder cancer and urostomy. Pt was discharged from [facility] on 08-17-16. Nursing Sepsis Screen: No Definite Risk Source of Information: Patient Exam Limitations: No Limitations History of Present Illness Time Seen by Provider: 14:50 Initial Comments The patient's an 81-year-old white male known to me for years. He had a total cystectomy performed at [facility] on 08/10. He was discharged on 08/17. [place] When he got out of the car he felt unable to proceed and noted a spinning sensation. He has chronic tinnitus. His had noted a temperature this morning in the 's and found him to just be a bit off. he has seen Dr. Lindsey since arriving home. There was a small area at the drain site that looked a bit inflamed and apparently Dr. Lindsey did a mini incise at that site. The wound has appeared stable since. The incision distal to that looks very good and without drainage. Timing/Duration: 1-3 Hours Associated Systoms: Loss of Appetite, Malaise, Weakness Allergies and Home Medications Allergies Coded Allergies: NKANo Known Allergies (Verified Allergy, Mild, 11/24/11) Uncoded Allergies: BEE STINGS (Allergy, Severe, SOA/HIVES, 11/01/10) Home Medications Aspirin 81 Mg Tablet., 81 MG PO [place], (Reported) Calcium Carbonate/Vitamin D3 1 Each Tablet, 1 TAB PO BID, (Reported) Cyclobenzaprine HCl 10 Mg Tablet, 10 MG PO BID PRN for MUSCLE SPASMS, (Reported) Diltiazem HCl 90 Mg Tablet, 45 MG PO HS, (Reported) TAKES 1/2 OF A (90 MG) TABLET / TAKES FOR LEG CRAMPS Diphenhydramine HCl 25 Mg Capsule, 25 MG PO BID, (Reported) Docusate Sodium 100 Mg Capsule, 100 MG PO DAILY, (Reported) Docusate Sodium 100 Mg Capsule, 200 MG PO HS, (Reported) TAKES 2 (100 MG) CAPSULES Furosemide 40 Mg Tablet, 40 MG PO DAILY PRN for PITTING EDEMA, (Reported) Gemfibrozil 600 Mg Tablet, 600 MG PO DAILY, (Reported) Hydrocodone/Acetaminophen 1 Each Tablet, 1 TAB PO EVERY 4-6 HOURS PRN for PAIN, (Reported) Levothyroxine Sodium 50 Mcg Tablet, 50 MCG PO DAILY, (Reported) Mirabegron 50 Mg Tab.er.24h, 50 MG PO DAILY@1200, (Reported) Multivitamin 1 Each Tablet, 1 TAB PO DAILY, (Reported) Nitroglycerin 0.4 Mg Tab.subl, 0.4 MG SL UD PRN for CHEST PAIN, (Reported) 1 TAB EVERY 5 MINUTES UP TO 3 DOSES WITHIN 15 MINUTES; CALL 911 IF NO RELIEF Nitroglycerin 0.4 Mg Tab.subl, 0.4 MG SL when necessary, #30 Prescribed by: YULIET PETER on 06/07/16 [address] [place] 3 Polyunsat Fatty Acids 1,000 Mg Cap, 2,000 MG PO DAILY, (Reported) Potassium Gluconate 90 Mg Tablet, 90 MG PO UD, (Reported) ONLY TAKES WITH FUROSEMIDE Pramipexole Di-HCl 0.25 Mg Tablet, 0.25 MG PO DAILY, (Reported) Pramipexole Di-HCl 0.25 Mg Tablet, 0.5 MG PO HS, (Reported) TAKES 2 (0.25 MG) TABLETS Rosuvastatin Calcium 20 Mg Tablet, 20 MG PO HS, (Reported) Solifenacin Succinate 5 Mg Tablet, 5 MG PO DAILY@1200, (Reported) Tamsulosin HCl 0.4 Mg Cap.er.24h, 0.4 MG PO HS, (Reported) Trazodone HCl 150 Mg Tablet, 150 MG PO HS PRN for SLEEP, (Reported) [Prevagen] , 1 TAB PO DAILY, (Reported) Constitutional: see HPI EENTM: other Respiratory: no symptoms reported Cardiovascular: no symptoms reported Gastrointestinal: no symptoms reported Genitourinary: no symptoms reported Musculoskeletal: no symptoms reported Skin: no symptoms reported Psychiatric/Neurological: No Symptoms Reported Hematologic/Lymphatic: No Symptoms Reported Immunological/Allergic: no symptoms reported Past Qpnwgpz-Tmasaj-Gwutyy Hx Patient Social History Alcohol Use: Past History Recreational Drug Use: No Smoking Status: Former Smoker Former Smoker/When Quit: Jun 04, 1976 2nd Hand Smoke Exposure: No Recent Foreign Travel: No Contact w/Someone Who Travel: No Recent Infectious Disease Expo: No Recent Hopitalizations: No Immunizations Up To Date Tetanus Booster (TDap): Unknown Date of Pneumonia Vaccine: Feb 03, 2015 Date of Influenza Vaccine: Nov 26, 2015 Seasonal Allergies Seasonal Allergies: Yes Surgeries HX Surgeries: Yes Surgeries: Joint Replacement Respiratory Hx Respiratory Disorders: No Cardiovascular Hx Cardiac Disorders: Yes (STENTS X5) Cardiac Disorders: Coronary Artery Disease, Heart Attack, High Cholesterol Neurological Hx Neurological Disorders: No Reproductive System Hx Reproductive Disorders: No Sexually Transmitted Disease: No HIV/AIDS: No Genitourinary Hx Genitourinary Disorders: Yes (UTI) Genitourinary Disorders: Prostate Problems Gastrointestinal Hx Gastrointestinal Disorders: No Musculoskeletal Hx Musculoskeletal Disorders: Yes Musculoskeletal Disorders: Arthritis Endocrine Hx Endocrine Disorders: No HEENT HX ENT Disorders: Yes (FULL SET OF DENTURES) Hearing Impairment: Denies, Hearing Aide Right, Hearing Aide Left Cancer Hx Cancer: Yes (NOSE) Cancer: Bladder, Prostate Psychosocial Hx Psychiatric Problems: No Integumentary HX Skin/Integumentary Disorder: No Blood Transfusions Hx Blood Disorders: No Adverse Reaction to a Blood Tr: No Family Medical History Significant Family History: No Pertinent Family Hx Family Medial History: Arthritis 19 FATHER 19 MOTHER Diabetes mellitus 19 FATHER Myocardial infarction 19 FATHER 19 MOTHER Respiratory disorder G8 SISTER No Family History of: AIDS Winn's disease Alcoholism Alzheimer's disease Cancer of mouth Colon cancer Completed stroke Dementia Kidney disease Parkinson's disease Prostate cancer Psychosocial problem Seizure disorder Severe allergy Thyroid disease Tuberculosis Physical Exam Vital Signs Vital Sign - Last 12Hours 08/29/16 13:00 Temp 100.0 Pulse 86 Resp 16 B/P (MAP) 126/75 Pulse Ox 97 O2 Delivery Room Air Capillary Refill : Less Than 3 Seconds General Appearance: Mild Distress Eyes: Bilateral Eye Normal Inspection HEENT: Normal ENT Inspection Neck: Normal Inspection Respiratory: Chest Non Tender, Lungs Clear, Normal Breath Sounds, No Accessory Muscle Use, No Respiratory Distress Cardiovascular: Regular Rate, Rhythm, No Edema, No Gallop, No JVD, No Murmur, Normal Peripheral Pulses Gastrointestinal: Normal Bowel Sounds, No Organomegaly, No Pulsatile Mass, Non Tender, Soft Back: Normal Inspection, No CVA Tenderness, No Vertebral Tenderness Extremity: Normal Capillary Refill, Normal Inspection, Normal Range of Motion, Non Tender, No Calf Tenderness, Other (1+ pedal edema) Neurologic/Psychiatric: Alert, Oriented x3, No Motor/Sensory Deficits, Normal Mood/Affect Skin: Normal Color, Warm/Dry Lymphatic: No Adenopathy Laceration Repair : Suture Size: 4-0 Progress/Results/Core Measures Results/Orders Lab Results Laboratory Tests Test 08/29/16 14:18 Range/Units White Blood Count 4.6 4.3-11.0 10^3/uL Red Blood Count 3.79 L 4.35-5.85 10^6/uL Hemoglobin 11.2 L 13.3-17.7 G/DL Hematocrit 35 L 40-54 % Mean Corpuscular Volume 92 80-99 FL Mean Corpuscular Hemoglobin 30 25-34 PG Mean Corpuscular Hemoglobin Concent 32 32-36 G/DL Red Cell Distribution Width 16.0 H 10.0-14.5 % Platelet Count 339 130-400 10^3/uL Mean Platelet Volume 8.4 7.4-10.4 FL Neutrophils (%) (Auto) 75 42-75 % Lymphocytes (%) (Auto) 10 L 12-44 % Monocytes (%) (Auto) 11 0-12 % Eosinophils (%) (Auto) 4 0-10 % Basophils (%) (Auto) 0 0-10 % Neutrophils # (Auto) 3.5 1.8-7.8 X 10^3 Lymphocytes # (Auto) 0.5 L 1.0-4.0 X 10^3 Monocytes # (Auto) 0.5 0.0-1.0 X 10^3 Eosinophils # (Auto) 0.2 0.0-0.3 10^3/uL Basophils # (Auto) 0.0 0.0-0.1 10^3/uL Sodium Level 138 135-145 MMOL/L Potassium Level 3.7 3.6-5.0 MMOL/L Chloride Level 104 98-107 MMOL/L Carbon Dioxide Level 24 21-32 MMOL/L Anion Gap 10 5-14 MMOL/L Blood Urea Nitrogen 9 7-18 MG/DL Creatinine 1.32 H 0.60-1.30 MG/DL Estimat Glomerular Filtration Rate 52 BUN/Creatinine Ratio 7 Glucose Level 90 70-105 MG/DL Calcium Level 8.9 8.5-10.1 MG/DL Total Bilirubin 0.2 0.1-1.0 MG/DL Aspartate Amino Transf (AST/SGOT) 21 5-34 U/L Alanine Aminotransferase (ALT/SGPT) 14 0-55 U/L Alkaline Phosphatase 41 40-136 U/L Total Protein 5.9 L 6.4-8.2 G/DL Albumin 3.2 3.2-4.5 G/DL My Orders Orders - YULIET PETER MD Cbc With Automated Diff (08/29/16 14:02) Comprehensive Metabolic Panel (08/29/16 14:02) Ekg Tracing (08/29/16 14:02) Vital Signs/I&O Vital Sign - Last 12Hours 08/29/16 13:00 Temp 100.0 Pulse 86 Resp 16 B/P (MAP) 126/75 Pulse Ox 97 O2 Delivery Room Air Blood Pressure Mean: 92 Departure Impression Impression: Primary Impression: Vertigo Disposition: 01 HOME, SELF-CARE Condition: Stable/Unchanged Departure-Patient Inst. Decision time for Depature: 14:58 Referrals: BLAKE LINDSEY MD (PCP/Family) Primary Care Physician Patient Instructions: Vertigo (a Type of Dizziness) (DC) Add. Discharge Instructions: All discharge instructions reviewed with patient and/or family. Voiced understanding. Keep up with fluid intake. Antivert as directed for dizziness specifically spinning Scripts [Antivert] No Conflict Check 25 MG 4 times a day Y for Dizziness, #30 Prov: YULIET PETER MD 08/29/16 YULIET PETER MD Aug 29, 2016 14:54
[2016-08-29] MEDS ORDERED: Antivert (15:00)
[2016-08-29] MEDS ORDERED: MECLIZINE 25 MG (ANTIVERT) TAB PO ONE (15:30)
[2016-08-29 15:40] VITALS: BP 127/80
== END 2016-08-29 15:40 | disposition home or self-care (01) ==
LOC: EDUNIT# 12:41 → ER 12:43
DX: R42 Dizziness and giddiness (principal); I25.10 Atherosclerotic heart disease of native coronary artery without angina pectoris; I25.2 Old myocardial infarction; E78.00 Pure hypercholesterolemia, unspecified; Z87.891 Personal history of nicotine dependence; Z85.51 Personal history of malignant neoplasm of bladder; Z85.46 Personal history of malignant neoplasm of prostate; Z79.82 Long term (current) use of aspirin
CPT/HCPCS: 36415; 80053; 85025; 93005

== ENCOUNTER → 2016-12-08 | Outpatient (CLI) | payer MEDICARE ==
[~2016-12-08] MED LIST changes: +Antivert; +CATHETER FLUSH 10 ML SYR IV PRN; +IOHEXOL 350 MG/ML 100 ML (OMNIPAQUE 350) VIAL IV ONE; +NS 100 ML (IVPB) BAG IV ONE
--- NOTE | 2016-12-08 10:47 | Diagnostic Imaging Report ---
EXAMINATION: CT head with and without intravenous contrast and CT neck with contrast is performed. INDICATION: Swelling and mass in the neck and right cheek area. FINDINGS: CT HEAD: There is no intracranial hemorrhage, edema or mass effect. There is periventricular and deep white matter hypodensities compatible with chronic microvascular ischemic changes. No hydrocephalus. No extra-axial fluid collection is seen. There is no enhancing mass in the brain or extra-axial space identified. The calvarium, the paranasal sinuses and orbits appear grossly unremarkable. CT NECK: There is a right thyroid nodule measuring 1.4 cm in size. The submandibular glands appear symmetric. The right parotid gland appears to be slightly more prominent compared to the left without abnormal mass or significantly enlarged lymph node seen. No fluid collection or abscess is identified. The vocal cords and the mucosal pharyngeal space appear symmetric. Punctate calcifications in the oropharyngeal tonsils are probably sequela of prior infections. There is a fixating wire through the upper aspect of the sternum identified. The osseous structures demonstrate degenerative changes. IMPRESSION: CT HEAD: White matter findings are suggestive of chronic microvascular ischemic changes. No intracranial hemorrhage. No enhancing mass. CT NECK: 1. The parotid glands are slightly prominent in size, with no solid mass or fluid collection seen. 2. Nonspecific 1.4 cm right thyroid nodule is seen. Dictated by: Dictated on workstation # [id number]
== END ==
LOC: RAD 09:08
DX: E04.1 Nontoxic single thyroid nodule (principal)
CPT/HCPCS: 70470; 70491

== ENCOUNTER 2017-04-02 18:21 | Emergency (ER) | payer MEDICARE ==
[~2017-04-02] VITALS: Ht 172.7 cm; Wt 90.7 kg
[~2017-04-02 18:21] MED LIST changes: +ACHD5005 PO; -CATHETER FLUSH 10 ML SYR IV PRN; -HYDR-3812 PO; -IOHEXOL 350 MG/ML 100 ML (OMNIPAQUE 350) VIAL IV ONE; -NS 100 ML (IVPB) BAG IV ONE
--- OUTSIDE RECORDS SUMMARY | 2017-04-02 18:27 | XMS REPORT | Continuity of Care Document ---
Author Author [employer] Organization [facility] Address Unknown Phone Unavailable Care Team Providers Care Corrective Therapist Name Role Phone [employer] Unavailable Unavailable Problems Medications Allergies, Adverse Reactions, Alerts Immunizations Results Vital Signs Encounters Location Location Details Encounter Type Encounter Number Reason For Visit Attending Provider ADM Date DC Date Status Source OUTPATIENT [id number] TASIA LOZOYA 09/16/2016 Active [facility] OUTPATIENT [id number] TASIA LOZOYA 12/23/2016 Active [facility] SPECIMEN [id number] TASIA LOZOYA 03/31/2017 Active [facility] SPECIMEN [id number] TASIA LOZOYA 03/31/2017 Active [facility] O TASIA LOZOYA Active [facility] Procedures Plan of Care Social History Assessment and Plan Family History Advance Directives Functional Status
--- OUTSIDE RECORDS SUMMARY | 2017-04-02 18:28 | XMS REPORT | Encounter Summary ---
Author Author [facility] Organization [facility] Address Unknown Phone Unavailable Care Team Providers Care Paste Mixer Name Role Phone PCP Unavailable Reason for Visit * Reason Comments Testicular Mass Encounter Details Date Type Department Care Team Description 03/03/2017 Office Visit [facility] Cory Amaro, Scrotal swelling Physicians - Urology MD [address] [place] [address] [place], [place] [phone] [id number] [phone] Social History Tobacco Use Types Packs/Day Years Used Date Former Smoker Cigarettes, Cigars 1.5 20 Quit: 03/27/1974 Smokeless Tobacco: Never Used Alcohol Use Drinks/Week oz/Week Comments No Sex Assigned at Date Recorded Not on file as of this encounter Last Filed Vital Signs Vital Sign Reading Time Taken Blood Pressure 125/72 03/03/2017 2:32 PM REGISTERED PHYSICAL THERAPIST Pulse 85 03/03/2017 2:32 PM REGISTERED PHYSICAL THERAPIST Temperature - - Respiratory Rate - - Oxygen Saturation - - Inhaled Oxygen - - Concentration Weight 94.4 kg (208 lb 3.2 oz) 03/03/2017 2:32 PM REGISTERED PHYSICAL THERAPIST Height 167.6 cm (5' 5.98") 03/03/2017 2:32 PM REGISTERED PHYSICAL THERAPIST Body Mass Index 33.62 03/03/2017 2:32 PM REGISTERED PHYSICAL THERAPIST in this encounter Functional Status Functional Status Response Date of Assessment Does the patient have a hearing impairment: No 08/17/2016 Does the patient have a visual impairment: No 08/17/2016 Does the patient have impaired ambulation: No 08/17/2016 Does the patient have an activity of daily living No 08/17/2016 (ADL) impairment: Does the patient have an instrumental activity of No 08/17/2016 daily living (IADL) impairment: Cognitive Status Response Date of Assessment Does the patient have a cognitive impairment: No 08/17/2016 as of this encounter Progress Notes * Cory Amaro MD - 03/03/2017 2:15 PM REGISTERED PHYSICAL THERAPIST Formatting of this note may be different from the original. Date of Service: 03/03/2017 Subjective: Leonid Kennedy Jr. is a 81 y.o. male who presents for evaluation. 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 He reports he first noticed this approximately 3 weeks ago and it has enlarged somewhat since then. He denies any pain. He reports he had a similar issue in the and had it surgically removed. He is unsure exactly what it was, but believes it was benign. He denies fevers, chills, nausea, vomiting, or new pain. Past Medical History: Diagnosis Date Arthritis Bladder cancer (HCC) Cancer of prostate (HCC) Coronary artery disease Disorder of thyroid gland Hearing reduced Heart disease Hyperlipidemia Hypothyroidism Myocardial infarction 1999 Past Surgical History: Procedure Laterality Date CORONARY ARTERY BYPASS GRAFT 1999 x 1 KNEE REPLACEMENT Left 2012 PROSTATECTOMY 2014 partial CYSTOSCOPY 03/10/2015 Blue light cystoscopy and TURBT PA CYSTOURETHROSCOPY W/DEST &/RMVL MED BLADDER ERNIE N/A 09/15/2015 BLUE LIGHT CYSTOSCOPY, TRANSURETHRAL RESECTION BLADDER TUMOR, BILATERAL RETROGRADE PYELOGRAMS performed by Cory [facility] MD [facility]/ Periop PA CYSTOURETHROSCOPY W/DEST &/RMVL MED BLADDER ERNIE N/A 07/07/2016 BLUE LIGHT CYSTOSCOPY, TRANSURETHRAL RESECTION OF BLADDER TUMOR, BILATERAL RETROGRADE PYELOGRAMS performed by Cory [facility] MD at [facility]/ Periop PA CSTC COMPL W/CONDUIT/SIGMOID BLDR PEL LMPHADEC N/A 08/10/2016 RADICAL CYSTECTOMY WITH ILEAL CONDUIT AND BILATERAL PELVIC LYMPH NODE DISSECTION. performed by Cory Amaro MD at [facility]/Periop COLONOSCOPY HX HEART CATHETERIZATION 12 heart caths-5 stents, most recent 2011 Family History Problem Relation Age of Onset Arthritis-osteo Mother Thyroid Disease Mother Diabetes Father Arthritis-osteo Father Asthma Sister Current Outpatient Prescriptions Medication Sig Dispense Refill acetaminophen (TYLENOL) 325 mg tablet Take 2 Tabs by mouth every 6 hours as needed. 0 aspirin EC 81 mg tablet Take 1 Tab by mouth twice weekly. Monday and Monday Wait 5 days before resuming your aspirin 90 Tab 3 calcium carbonate/vitamin D-3 (OSCAL-500+D) 1250 mg/200 unit tablet Take 1 Tab by mouth twice daily with meals. Calcium Carb 1250mg delivers 500mg elemental Ca diltiazem (CARDIZEM) 90 mg tablet Take 45 mg by mouth at bedtime daily. Indications: Leg cramps docusate (COLACE) 100 mg capsule Take 100 mg by mouth daily. fish oil /omega-3 fatty acids (SEA-OMEGA) 340/1000 mg capsule Take 1 Cap by mouth twice daily. gemfibrozil (LOPID) 600 mg tablet Take 600 mg by mouth daily. levothyroxine (SYNTHROID) 50 mcg tablet Take 50 mcg by mouth daily. magnesium oxide (MAG-OX) 400 mg tablet Take 400 mg by mouth at bedtime daily. Indications: Leg Cramps meclizine (ANTIVERT) 12.5 mg tablet Take 12.5 mg by mouth three times daily as needed. milk of magnesia (CONC) 2,400 mg/10 mL oral suspension Take 10 mL by mouth twice daily as needed. Indications: CONSTIPATION [address](+) (PRILOSEC) 40 mg capsule Take 40 mg by mouth daily as needed. ondansetron (ZOFRAN) 4 mg tablet Take 4 mg by mouth every 8 hours as needed for Nausea or Vomiting. Ostomy Supplies misc Use 10 Units as directed as Needed (Every 4 days and as needed). Ostomy supplies and accessories. One month supply. 10 Each 99 other medication Take 1 Dose by mouth daily. Prevagen pramipexole (MIRAPEX) 0.25 mg tablet Take by mouth twice daily. 1 tablet in the morning and 2 tablets at bedtime rosuvastatin (CRESTOR) 20 mg tablet Take 20 mg by mouth at bedtime daily. senna/docusate (SENOKOT-S) 8.6/50 mg tablet Take 2 Tabs by mouth at bedtime daily. traMADol (ULTRAM) 50 mg tablet Take 1 Tab by mouth every 6 hours as needed for Pain. Indications: PAIN 40 Tab 0 traZODone (DESYREL) 150 mg tablet Take 300 mg by mouth at bedtime daily. vitamins, multiple cap Take 1 Cap by mouth daily. No current facility-administered medications for this visit. No Known Allergies Social History Social History Marital status: Spouse name: N/A Number of children: N/A Years of education: N/A Occupational History Not on file. Social History Main Topics Smoking status: Former Smoker Packs/day: 1.50 Years: 20.00 Types: Cigarettes, Cigars Quit date: 03/27/1974 Smokeless tobacco: Never Used Alcohol use No Drug use: No Sexual activity: Not on file Other Topics Concern Not on file Social History Narrative Review of Systems Constitutional: Negative for activity change, appetite change, chills, diaphoresis, fatigue, fever and unexpected weight change. HENT: Negative for congestion, hearing loss, mouth sores and sinus pressure. Eyes: Negative for visual disturbance. Respiratory: Negative for apnea, cough, chest tightness and shortness of breath. Cardiovascular: Negative for chest pain, palpitations and leg swelling. Gastrointestinal: Negative for abdominal pain, anal bleeding, blood in stool, constipation, diarrhea, nausea, rectal pain and vomiting. Genitourinary: Positive for scrotal swelling. Negative for decreased urine volume, difficulty urinating, dysuria, enuresis, frequency, hematuria and urgency. Musculoskeletal: Negative for arthralgias, back pain, gait problem and myalgias. Skin: Negative for rash and wound. Neurological: Negative for syncope, weakness, light-headedness, numbness and headaches. Hematological: Negative for adenopathy. Does not bruise/bleed easily. Psychiatric/Behavioral: Negative for decreased concentration. The patient is not nervous/anxious. Objective: acetaminophen (TYLENOL) 325 mg tablet Take 2 Tabs by mouth every 6 hours as needed. aspirin EC 81 mg tablet Take 1 Tab by mouth twice weekly. Monday and Monday Wait 5 days before resuming your aspirin calcium carbonate/vitamin D-3 (OSCAL-500+D) 1250 mg/200 unit tablet Take 1 Tab by mouth twice daily with meals. Calcium Carb 1250mg delivers 500mg elemental Ca diltiazem (CARDIZEM) 90 mg tablet Take 45 mg by mouth at bedtime daily. Indications: Leg cramps docusate (COLACE) 100 mg capsule Take 100 mg by mouth daily. fish oil /omega-3 fatty acids (SEA-OMEGA) 340/1000 mg capsule Take 1 Cap by mouth twice daily. gemfibrozil (LOPID) 600 mg tablet Take 600 mg by mouth daily. levothyroxine (SYNTHROID) 50 mcg tablet Take 50 mcg by mouth daily. magnesium oxide (MAG-OX) 400 mg tablet Take 400 mg by mouth at bedtime daily. Indications: Leg Cramps meclizine (ANTIVERT) 12.5 mg tablet Take 12.5 mg by mouth three times daily as needed. milk of magnesia (CONC) 2,400 mg/10 mL oral suspension Take 10 mL by mouth twice daily as needed. Indications: CONSTIPATION omeprazole DR(+) (PRILOSEC) 40 mg capsule Take 40 mg by mouth daily as needed. ondansetron (ZOFRAN) 4 mg tablet Take 4 mg by mouth every 8 hours as needed for Nausea or Vomiting. Ostomy Supplies misc Use 10 Units as directed as Needed (Every 4 days and as needed). Ostomy supplies and accessories. One month supply. other medication Take 1 Dose by mouth daily. Prevagen pramipexole (MIRAPEX) 0.25 mg tablet Take by mouth twice daily. 1 tablet in the morning and 2 tablets at bedtime rosuvastatin (CRESTOR) 20 mg tablet Take 20 mg by mouth at bedtime daily. senna/docusate (SENOKOT-S) 8.6/50 mg tablet Take 2 Tabs by mouth at bedtime daily. traMADol (ULTRAM) 50 mg tablet Take 1 Tab by mouth every 6 hours as needed for Pain. Indications: PAIN traZODone (DESYREL) 150 mg tablet Take 300 mg by mouth at bedtime daily. vitamins, multiple cap Take 1 Cap by mouth daily. Vitals: 03/03/17 1432 BP: 125/72 Pulse: 85 Weight: 94.4 kg (208 lb 3.2 oz) Height: 167.6 cm (65.98") Body mass index is 33.62 kg/(m^2). Physical Exam Constitutional: He is oriented to person, place, and time. He appears well- developed and well-nourished. HENT: Head: Normocephalic and atraumatic. Eyes: EOM are normal. Neck: Normal range of motion. Cardiovascular: Normal rate. Pulmonary/Chest: Effort normal. Genitourinary: Genitourinary Comments: Circumcised phallus with orthotopic meatus without lesions. Scrotal testicles palpable bilaterally. Left hemiscrotum with palpable fullness without change with cough or Valsalva. Vas palpable bilaterally. Musculoskeletal: Normal range of motion. Neurological: He is alert and oriented to person, place, and time. Skin: Skin is warm and dry. Psychiatric: He has a normal mood and affect. His behavior is normal. Judgment and thought content normal. Assessment and Plan: Problem Scrotal Swelling 3 week history of left scrotal swelling without pain or systemic symptoms. No enlargement with cough or Valsalva. 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 Plan: - No intervention necessary at this time - Keep regularly scheduled follow up appointment with CT scan in March 2017 Patient seen and discussed with Dr. Amaro, who directed plan of care. Leonid So MD PGY1 Urology Pager [phone] ATTESTATION I personally performed the stevens portions of the E/M visit, discussed case with resident and concur with resident documentation of history, physical exam, assessment, and treatment plan unless otherwise noted. 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 Plan: - No intervention necessary at this time - Keep regularly scheduled follow up appointment with CT scan in March 2017 in this encounter Plan of Treatment Date Type Specialty Care Team Description 03/31/2017 Procedure Pass Urology as of this encounter Visit Diagnoses Diagnosis Scrotal swelling Edema of male genital organs in this encounter
--- OUTSIDE RECORDS SUMMARY | 2017-04-02 18:28 | XMS REPORT | Encounter Summary ---
Author Author [facility] Organization [facility] Address Unknown Phone Unavailable Care Team Providers Care Funnel Coater Name Role Phone PCP Unavailable Encounter Details Date Type Department Care Team Description 12/23/2016 Procedure Pass [facility] Radiology [address] MED OFFICE [address] [place] [address] Social History Tobacco Use Types Packs/Day Years Used Date Former Smoker Cigarettes, Cigars 1.5 20 Quit: 03/27/1974 Smokeless Tobacco: Never Used Alcohol Use Drinks/Week oz/Week Comments No Sex Assigned at Date Recorded Not on file as of this encounter Functional Status Functional Status Response [...] impairment: No 08/17/2016 as of this encounter Plan of Treatment Date Type Specialty Care Team Description 03/31/2017 Procedure Pass Urology as of this encounter Visit Diagnoses Not on filein this encounter
--- OUTSIDE RECORDS SUMMARY | 2017-04-02 18:28 | XMS REPORT | Encounter Summary ---
Author Author [facility] Organization [facility] Address Unknown Phone Unavailable Care Team Providers Care Insulation Supervisor Name Role Phone PCP Unavailable Encounter Details Date Type Department Care Team Description 03/31/2017 Hospital [facility] Cory Amaro, Malignant neoplasm of Encounter [address], [place] [address] [address] (HCC) [address] [place], [place] [id number] Social History Tobacco Use Types Packs/Day Years [...] Procedure Pass Urology as of this encounter Results * BASIC METABOLIC PANEL (03/31/2017 11:59 AM) Component Value Ref Range Sodium 137 137 - 147 MMOL/L Potassium 3.9 3.5 - 5.1 MMOL/L Chloride 102 98 - 110 MMOL/L CO2 27 21 - 30 MMOL/L Anion Gap 8 3 - 12 Glucose 91 70 - 100 MG/DL Blood Urea Nitrogen 17 7 - 25 MG/DL Creatinine 1.14 0.4 - 1.24 MG/DL Calcium 9.7 8.5 - 10.6 MG/DL eGFR Non >60 >60 mL/min Comment: The eGFR is not validated for use in drug dosing adjustments. Continue to use estimated creatinine clearance per dosing reference text. Please contact the Clinical Pharmacist for questions. eGFR >60 >60 mL/min Comment: The eGFR is not validated for use in drug dosing adjustments. Continue to use estimated creatinine clearance per dosing reference text. Please contact the Clinical Pharmacist for questions. Specimen Performing Laboratory [facility] [address] [place] [address] * CBC (03/31/2017 11:59 AM) Component Value Ref Range White Blood Cells 6.3 4.5 - 11.0 K/UL RBC 5.13 4.4 - 5.5 M/UL Hemoglobin 15.4 13.5 - 16.5 GM/DL Hematocrit 46.0 40 - 50 % MCV 89.6 80 - 100 FL MCH 30.0 26 - 34 PG MCHC 33.4 32.0 - 36.0 G/DL RDW 14.9 11 - 15 % Platelet Count 229 150 - 400 K/UL MPV 7.9 7 - 11 FL Specimen Performing Laboratory [facility] [address] [place] [address] * PROSTATIC SPECIFIC ANTIGEN-PSA (03/31/2017 11:59 AM) Component Value Ref Range Prostatic Specific 0.02 <4.0 NG/ML Antigen Specimen Performing Laboratory [facility] [address] [place] [address] in this encounter Visit Diagnoses Diagnosis Malignant neoplasm of urinary bladder, unspecified site (HCC) Cancer of prostate (HCC) Malignant neoplasm of prostate in this encounter Admitting Diagnoses Diagnosis Malignant neoplasm of bladder, unspecified (HCC) Malignant neoplasm of bladder, unspecified Malignant neoplasm of prostate (HCC) Malignant neoplasm of prostate in this encounter
--- OUTSIDE RECORDS SUMMARY | 2017-04-02 18:28 | XMS REPORT | Encounter Summary ---
Author Author [facility] Organization [facility] Address Unknown Phone Unavailable Care Team Providers [employer] Back Counter Man Name Role Phone PCP Unavailable Reason for Referral * Radiology Services Status Reason Specialty Diagnoses / Referred By Referred To Procedures Contact Contact New Request Radiology Diagnoses Magi Amaro MD neoplasm of [address] [place] [address] bladder, Blvd unspecified site [address] ([facility]) [place], [place] P [address] rocedures Phone: CT ABD/PELV W [phone] CONTRAST Fax: CT ABD/PELV WO/W [phone] CONTRAST * Radiology Services Status Reason Specialty Diagnoses / Referred By Referred To Procedures Contact Contact New Request Radiology Diagnoses Sondra 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, Blvd unspecified site [address] ([facility]) [place], [place] [address] rocedures Phone: CT ABD/PELV W [phone] CONTRAST Fax: CT ABD/PELV WO/W [phone] CONTRAST * Radiology Services Status Reason Specialty Diagnoses / Referred By Referred To Procedures Contact Contact No Auth Needed Radiology Diagnoses Sondra, Mob Ct Malignant Cory Nguyen MD [address] neoplasm of [address] [place] MED OFFICE BLDG urinary bladder, Blvd [address] FLO[address] unspecified site [address] [place], [place] ([facility]) [place] [address] Phone: [employer] CT CHEST W [phone] CONTRAST Fax: CT CHEST WO/W [phone] CONTRAST * Radiology Services Status Reason Specialty Diagnoses / Referred By Referred To Procedures Contact Contact No Auth Needed Radiology Diagnoses Sondra, Mob Ct Malignant Cory Nguyen MD [address] neoplasm of [address] [place] MED OFFICE BLDG urinary bladder, Blvd [address] FLO[address] unspecified site [address] [place], [place] ([facility]) [place] [address] [address] [address] Phone: [employer] CT CHEST W [phone] CONTRAST Fax: CT CHEST WO/W [phone] CONTRAST Reason for Visit * Radiology Services Status Reason Specialty Diagnoses / Referred By Referred To Procedures Contact Contact No Auth Needed Radiology Diagnoses Sondra Mob [address] Malignant Cory Nguyen MD [address] neoplasm of [address] [place] MED OFFICE [address]LDG urinary bladder, Blvd [address] FLO[address] unspecified site [address] [place], [place] ([facility]) [place] [address] [address] [address] Phone: [employer] CT CHEST W [phone] CONTRAST Fax: CT CHEST WO/W [phone] CONTRAST Encounter Details Date Type Department Care Team Description 03/31/2017 Hospital [facility] Cory Amaro, Queta Encounter Hospital Radiology [address] [place] [address] [place] [address] [phone] Social History Tobacco Use Types Packs/Day Years [...] Urology as of this encounter Results * CT ABD/PELV W CONTRAST (03/31/2017 12:26 PM) Specimen Performing Laboratory [facility] RAD RESULTS Impressions CHEST: 1.No thoracic metastatic disease. 2.No focal rib lesion is identified. ABDOMEN AND PELVIS: 1.Previous cystoprostatectomy, pelvic lymph node dissection, and right lower quadrant urinary diversion without iliac adenopathy or abdominal metastatic disease. 2.Mild increase in size of a right inguinal lymph node. This is most likely a reactive node, however, routine periodic follow-up is suggested. Approved by Curt Albert M.D. on 03/31/2017 1:51 PM By my electronic signature, I attest that I have personally reviewed the images for this examination and formulated the interpretations and opinions expressed in this report Finalized by Marcos Mclaughlin M.D. on 03/31/2017 5:57 PM. Dictated by Curt Albert M.D. on 03/31/2017 1:[address] CHEST, ABDOMEN AND PELVIS Clinical Indication:Male, 81 years old. Bladder cancer. Technique: Multiple contiguous axial images were obtained through the chest, abdomen and pelvis following the administration of IV contrast material. Post processing coronal and sagittal reconstruction images were made from the axial images. IV contrast: Isovue-370 Bowel contrast:None Comparison: CT chest/abdomen/pelvis from 07/21/2016. CHEST FINDINGS: Lower Neck: Unremarkable. Axilla, Mediastinum and Vida: No thoracic lymphadenopathy. Stable normal sized mediastinal and hilar lymph nodes are noted. Right hilar granulomas are noted. Heart and Great Vessels: Prior median sternotomy and CABG. Heart size is normal. Thoracic aorta is normal in caliber. Airway, Lungs and Pleura: Central airways are patent. Right upper lobe calcified granuloma is noted. No suspicious pulmonary nodules. Left lung base linear scarring. No focal consolidation or pleural effusion. Chest Wall and Osseous Structures: Moderate diffuse demineralization. No aggressive osseous lesions. The ribs are unremarkable. Specifically, no destructive right eighth rib lesion is identified. ABDOMEN AND PELVIS FINDINGS: Liver and Biliary system: Liver is normal in size. Note is made of a cyst in hepatic segment 2. No additional hepatic lesions. Nondilated gallbladder. No calcified gallstones. No biliary ductal dilatation. Spleen: Unremarkable. Adrenal Glands and Kidneys: No adrenal mass. Unchanged left renal cysts. Right kidney is unremarkable. No hydronephrosis. Pancreas and Retroperitoneum: Unremarkable pancreas. No retroperitoneal lymphadenopathy. Aorta and Major Vessels: Abdominal aorta is normal in caliber with moderate scattered calcified atherosclerotic plaque. Bowel, Mesentery and Peritoneal space: Large and small bowel loops are normal in caliber. No enteric lymphadenopathy or ascites. Pelvis: Previous cystoprostatectomy and right lower quadrant urinary diversion. No bladder fossa mass. Mild increase in size of a right inguinal lymph node which measures 1.9 x 1.7 cm (series 7 image 82), previously 1.8 x 1.4 cm. No iliac lymphadenopathy. Abdominal wall and Osseous Structures: Moderate diffuse demineralization. Moderate thoracolumbar spondylosis. No aggressive osseous lesions. Procedure Note Interface, Radiant Results - 03/31/2017 6:[address] CHEST, ABDOMEN AND PELVIS Clinical Indication: Male, 81 years old. Bladder cancer. Technique: Multiple contiguous axial images were obtained through the chest, abdomen and pelvis following the administration of IV contrast material. Post processing coronal and sagittal reconstruction images were made from the axial images. IV contrast: Isovue-370 Bowel contrast: None Comparison: CT chest/abdomen/pelvis from 07/21/2016. CHEST FINDINGS: Lower Neck: Unremarkable. Axilla, Mediastinum and Vida: No thoracic lymphadenopathy. Stable normal sized mediastinal and hilar lymph nodes are noted. Right hilar granulomas are noted. Heart and Great Vessels: Prior median sternotomy and CABG. Heart size is normal. Thoracic aorta is normal in caliber. Airway, Lungs and Pleura: Central airways are patent. Right upper lobe calcified granuloma is noted. No suspicious pulmonary nodules. Left lung base linear scarring. No focal consolidation or pleural effusion. Chest Wall and Osseous Structures: Moderate diffuse demineralization. No aggressive osseous lesions. The ribs are unremarkable. Specifically, no destructive right eighth rib lesion is identified. ABDOMEN AND PELVIS FINDINGS: Liver and Biliary system: Liver is normal in size. Note is made of a cyst in hepatic segment 2. No additional hepatic lesions. Nondilated gallbladder. No calcified gallstones. No biliary ductal dilatation. Spleen: Unremarkable. Adrenal Glands and Kidneys: No adrenal mass. Unchanged left renal cysts. Right kidney is unremarkable. No hydronephrosis. Pancreas and Retroperitoneum: Unremarkable pancreas. No retroperitoneal lymphadenopathy. Aorta and Major Vessels: Abdominal aorta is normal in caliber with moderate scattered calcified atherosclerotic plaque. Bowel, Mesentery and Peritoneal space: Large and small bowel loops are normal in caliber. No enteric lymphadenopathy or ascites. Pelvis: Previous cystoprostatectomy and right lower quadrant urinary diversion. No bladder fossa mass. Mild increase in size of a right inguinal lymph node which measures 1.9 x 1.7 cm (series 7 image 82), previously 1.8 x 1.4 cm. No iliac lymphadenopathy. Abdominal wall and Osseous Structures: Moderate diffuse demineralization. Moderate thoracolumbar spondylosis. No aggressive osseous lesions. IMPRESSION CHEST: 1. No thoracic metastatic disease. 2. No focal rib lesion is identified. ABDOMEN AND PELVIS: 1. Previous cystoprostatectomy, pelvic lymph node dissection, and right lower quadrant urinary diversion without iliac adenopathy or abdominal metastatic disease. 2. Mild increase in size of a right inguinal lymph node. This is most likely a reactive node, however, routine periodic follow-up is suggested. Approved by Curt Albert M.D. on 03/31/2017 1:51 PM By my electronic signature, I attest that I have personally reviewed the images for this examination and formulated the interpretations and opinions expressed in this report Finalized by Marcos Mclaughlin M.D. on 03/31/2017 5:57 PM. Dictated by Curt Albert M.D. on 03/31/2017 1:27 PM. * CT CHEST W CONTRAST (03/31/2017 12:26 PM) Specimen Performing Laboratory [facility] RAD RESULTS Impressions CHEST: 1.No thoracic metastatic disease. 2.No focal rib lesion is identified. ABDOMEN AND PELVIS: 1.Previous cystoprostatectomy, pelvic lymph node dissection, and right lower quadrant urinary diversion without iliac adenopathy or abdominal metastatic disease. 2.Mild increase in size of a right inguinal lymph node. This is most likely a reactive node, however, routine periodic follow-up is suggested. Approved by Curt Albert M.D. on 03/31/2017 1:51 PM By my electronic signature, I attest that I have personally reviewed the images for this examination and formulated the interpretations and opinions expressed in this report Finalized by Marcos Mclaughlin M.D. on 03/31/2017 5:57 PM. Dictated by Curt Albert M.D. on 03/31/2017 1:[address] CHEST, ABDOMEN AND PELVIS Clinical Indication:Male, 81 years old. Bladder cancer. Technique: Multiple contiguous axial images were obtained through the chest, abdomen and pelvis following the administration of IV contrast material. Post processing coronal and sagittal reconstruction images were made from the axial images. IV contrast: Isovue-370 Bowel contrast:None Comparison: CT chest/abdomen/pelvis from 07/21/2016. CHEST FINDINGS: Lower Neck: Unremarkable. Axilla, Mediastinum and Vida: No thoracic lymphadenopathy. Stable normal sized mediastinal and hilar lymph nodes are noted. Right hilar granulomas are noted. Heart and Great Vessels: Prior median sternotomy and CABG. Heart size is normal. Thoracic aorta is normal in caliber. Airway, Lungs and Pleura: Central airways are patent. Right upper lobe calcified granuloma is noted. No suspicious pulmonary nodules. Left lung base linear scarring. No focal consolidation or pleural effusion. Chest Wall and Osseous Structures: Moderate diffuse demineralization. No aggressive osseous lesions. The ribs are unremarkable. Specifically, no destructive right eighth rib lesion is identified. ABDOMEN AND PELVIS FINDINGS: Liver and Biliary system: Liver is normal in size. Note is made of a cyst in hepatic segment 2. No additional hepatic lesions. Nondilated gallbladder. No calcified gallstones. No biliary ductal dilatation. Spleen: Unremarkable. Adrenal Glands and Kidneys: No adrenal mass. Unchanged left renal cysts. Right kidney is unremarkable. No hydronephrosis. Pancreas and Retroperitoneum: Unremarkable pancreas. No retroperitoneal lymphadenopathy. Aorta and Major Vessels: Abdominal aorta is normal in caliber with moderate scattered calcified atherosclerotic plaque. Bowel, Mesentery and Peritoneal space: Large and small bowel loops are normal in caliber. No enteric lymphadenopathy or ascites. Pelvis: Previous cystoprostatectomy and right lower quadrant urinary diversion. No bladder fossa mass. Mild increase in size of a right inguinal lymph node which measures 1.9 x 1.7 cm (series 7 image 82), previously 1.8 x 1.4 cm. No iliac lymphadenopathy. Abdominal wall and Osseous Structures: Moderate diffuse demineralization. Moderate thoracolumbar spondylosis. No aggressive osseous lesions. Procedure Note Interface, Radiant Results - 03/31/2017 6:[address] CHEST, ABDOMEN AND PELVIS Clinical Indication: Male, 81 years old. Bladder cancer. Technique: Multiple contiguous axial images were obtained through the chest, abdomen and pelvis following the administration of IV contrast material. Post processing coronal and sagittal reconstruction images were made from the axial images. IV contrast: Isovue-370 Bowel contrast: None Comparison: CT chest/abdomen/pelvis from 07/21/2016. CHEST FINDINGS: Lower Neck: Unremarkable. Axilla, Mediastinum and Vida: No thoracic lymphadenopathy. Stable normal sized mediastinal and hilar lymph nodes are noted. Right hilar granulomas are noted. Heart and Great Vessels: Prior median sternotomy and CABG. Heart size is normal. Thoracic aorta is normal in caliber. Airway, Lungs and Pleura: Central airways are patent. Right upper lobe calcified granuloma is noted. No suspicious pulmonary nodules. Left lung base linear scarring. No focal consolidation or pleural effusion. Chest Wall and Osseous Structures: Moderate diffuse demineralization. No aggressive osseous lesions. The ribs are unremarkable. Specifically, no destructive right eighth rib lesion is identified. ABDOMEN AND PELVIS FINDINGS: Liver and Biliary system: Liver is normal in size. Note is made of a cyst in hepatic segment 2. No additional hepatic lesions. Nondilated gallbladder. No calcified gallstones. No biliary ductal dilatation. Spleen: Unremarkable. Adrenal Glands and Kidneys: No adrenal mass. Unchanged left renal cysts. Right kidney is unremarkable. No hydronephrosis. Pancreas and Retroperitoneum: Unremarkable pancreas. No retroperitoneal lymphadenopathy. Aorta and Major Vessels: Abdominal aorta is normal in caliber with moderate scattered calcified atherosclerotic plaque. Bowel, Mesentery and Peritoneal space: Large and small bowel loops are normal in caliber. No enteric lymphadenopathy or ascites. Pelvis: Previous cystoprostatectomy and right lower quadrant urinary diversion. No bladder fossa mass. Mild increase in size of a right inguinal lymph node which measures 1.9 x 1.7 cm (series 7 image 82), previously 1.8 x 1.4 cm. No iliac lymphadenopathy. Abdominal wall and Osseous Structures: Moderate diffuse demineralization. Moderate thoracolumbar spondylosis. No aggressive osseous lesions. IMPRESSION CHEST: 1. No thoracic metastatic disease. 2. No focal rib lesion is identified. ABDOMEN AND PELVIS: 1. Previous cystoprostatectomy, pelvic lymph node dissection, and right lower quadrant urinary diversion without iliac adenopathy or abdominal metastatic disease. 2. Mild increase in size of a right inguinal lymph node. This is most likely a reactive node, however, routine periodic follow-up is suggested. Approved by Curt Albert M.D. on 03/31/2017 1:51 PM By my electronic signature, I attest that I have personally reviewed the images for this examination and formulated the interpretations and opinions expressed in this report Finalized by Marcos Mclaughlin M.D. on 03/31/2017 5:57 PM. Dictated by Curt Albert M.D. on 03/31/2017 1:27 PM. * POC CREATININE, RAD (03/31/2017 12:01 PM) Component Value Ref Range Creatinine, POC 1.1 0.4 - 1.24 MG/DL Specimen Performing Laboratory [facility] [address] [place] [address] in this encounter Visit Diagnoses Diagnosis Malignant neoplasm of urinary bladder, unspecified site (HCC) in this encounter Administered Medications Medication Order MAR Action Action Date Dose Rate Site iopamidol 370 (ISOVUE-370) injection 100 Given 03/31/2017 100 mL mL 12:20 SIDE BOSS 100 mL, Intravenous, ONCE, 1 dose, 03/31/17 at 1230, NOTE: This is a HIGH ALERT Medication. sodium chloride PF 0.9% injection 50 mL Given 03/31/2017 50 mL 50 mL, Intravenous, ONCE, 1 dose, Fri 12:20 SIDE BOSS 03/31/17 at 1230, Intra-procedure (IR) in this encounter
--- OUTSIDE RECORDS SUMMARY | 2017-04-02 18:28 | XMS REPORT | Encounter Summary ---
Author Author [facility] Organization [facility] Address Unknown Phone Unavailable Care Team Providers Care Manager [employer] Name Role Phone PCP Unavailable Encounter Details Date Type Department Care Team Description 12/23/2016 Procedure Pass [facility] Radiology [address] MED OFF[address] [place] [address] Social History Tobacco Use Types Packs/Day Years [...]
--- OUTSIDE RECORDS SUMMARY | 2017-04-02 18:28 | XMS REPORT | Clinical Summary ---
Author Author [facility] Organization [facility] Address Unknown Phone Unavailable Care Team Providers Care Professor Of Industrial Technology Name Role Phone PCP Unavailable Source Comments Some departments are not documenting in the electronic medical record. If you do not see the information that you expected, contact Release of Information in the Health Information Management department at [phone] for further assistance in locating additional records.[facility] Allergies No Known Allergies Current Medications Prescription Sig. Disp. Refills Start End Date Status Date gemfibrozil (LOPID) 600 Take 600 mg by mouth Active mg tablet daily. traZODone (DESYREL) 150 Take 300 mg by mouth at Active mg tablet bedtime daily. levothyroxine (SYNTHROID) Take 50 mcg by mouth Active 50 mcg tablet daily. docusate (COLACE) 100 mg Take 100 mg by mouth Active capsule daily. pramipexole (MIRAPEX) Take by mouth twice Active 0.25 mg tablet daily. 1 tablet in the morning and 2 tablets at bedtime fish oil /omega-3 fatty Take 1 Cap by mouth twice Active acids (SEA-OMEGA) daily. 340/1000 mg capsule calcium carbonate/vitamin Take 1 Tab by mouth twice Active D-3 (OSCAL-500+D) 1250 daily with meals. Calcium mg/200 unit tablet Carb 1250mg delivers 500mg elemental Ca vitamins, multiple cap Take 1 Cap by mouth Active daily. diltiazem (CARDIZEM) 90 Take 45 mg by mouth at Active mg tabletIndications: Leg bedtime daily. cramps Indications: Leg cramps aspirin EC 81 mg tablet Take 1 Tab by mouth twice 90 Tab 3 09/17/19 Active weekly. Monday and MondayWait 5 days before resuming your aspirin senna/docusate Take 2 Tabs by mouth at Active (SENOKOT-S) 8.6/50 mg bedtime daily. tablet other medication Take 1 Dose by mouth Active daily. Prevagen magnesium oxide (MAG-OX) Take 400 mg by mouth at Active 400 mg tabletIndications: bedtime daily. Leg Cramps Indications: Leg Cramps rosuvastatin (CRESTOR) 20 Take 20 mg by mouth at Active mg tablet bedtime daily. omeprazole DR(+) Take 40 mg by mouth daily Active (PRILOSEC) 40 mg capsule as needed. ondansetron (ZOFRAN) 4 mg Take 4 mg by mouth every Active tablet 8 hours as needed for Nausea or Vomiting. acetaminophen (TYLENOL) Take 2 Tabs by mouth 0 08/18/19 Active 325 mg tablet every 6 hours as needed. 17 traMADol (ULTRAM) 50 mg Take 1 Tab by mouth every 40 Tab 0 08/18/19 Active tabletIndications: PAIN 6 hours as needed for 17 Pain. Indications: PAIN milk of magnesia (CONC) Take 10 mL by mouth twice 360 mL 1 08/18/19 Active 2,400 mg/10 mL oral daily as needed. 17 suspensionIndications: Indications: CONSTIPATION CONSTIPATION Ostomy Supplies misc Use 10 Units as directed 10 Each 99 08/18/19 Active as Needed (Every 4 days 17 and as needed). Ostomy supplies and accessories. One month supply. meclizine (ANTIVERT) 12.5 Take 12.5 mg by mouth Active mg tablet three times daily as needed. Active Problems Problem Noted Date Scrotal swelling 03/03/2017 Overview: 3 week history of left scrotal swelling without pain or systemic symptoms. No enlargement with cough or Valsalva. 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 Plan: - No intervention necessary at this time - Keep regularly scheduled follow up appointment with CT scan in March 2017 Cancer of prostate (HCC) 12/23/2016 Bladder cancer (HCC) 03/10/2015 Overview: 02/10/2014: Incedental finding of CIS of the bladder on TURP specimen performed for obstructive LUTS 04/01/14: repeat TURP - no residual disease - No BCG, no recurrent lesions on 3 and 6 month follow up cystoscopies 02/16/15: Cystoscopy: Findings: Bladder wall: inflamed with 3 bladder lesions. 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 Sr - cystoscopy - "red areas" Bothered by irritative voiding symptoms - no lasting benefit from Vesicare. -- 08/10/16 OPERATIVE PROCEDURE: Radical cystectomy with ileal conduit formation, Left inguinal hernia reduction. pTis N0, -- 09/02/16 stents removed, Cr 1.46, hgb 13.1, prealbumin 32 L ast Assessment & Plan: Will review with Dr Amaro ~ increase in Marinol dose? Pt has FU 09/23/16 ~ will order BMP Reviewed hydration, multiple small meals, high protein, add protein powder Encounters Date Type Specialty Care Team Description 03/31/2017 Office Visit UrologCory Hoffman, Malignant neoplasm of urinary bladder, unspecified site (HCC) (Primary Dx);Prostate cancer (HCC) 03/31/2017 Hospital Lab Cory Amaro, Malignant neoplasm of Encounter bladder, unspecified (HCC) 03/31/2017 Hospital Radiology Cory Amaro, Arrived Encounter 03/03/2017 Office Visit UrologCory Hoffman, Scrotal swelling 12/23/2016 Procedure Pass Radiology 12/23/2016 Procedure Pass Radiology from Last 3 Months Immunizations Name Dates Previously Given Next Due Flu Vaccine=>2 YO 01/08/2015 (Historical) Pneumococcal Vaccine 02/08/2015 (23-Delfina Adult) Family History Medical History Relation Name Comments Arthritis-osteo Father Diabetes Father Arthritis-osteo Mother Thyroid Disease Mother Asthma Sister Relation Name Status Comments Father Mother Sister Social History Tobacco Use Types Packs/Day Years Used Date Former Smoker Cigarettes, Cigars 1.5 20 Quit: 03/27/1974 Smokeless Tobacco: Never Used Alcohol Use Drinks/Week oz/Week Comments No Sex Assigned at Date Recorded Not on file Last Filed Vital Signs Vital Sign Reading Time Taken Blood Pressure 140/82 03/31/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 Pulse 99 03/31/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 Temperature 36.8 C (98.3 F) 08/17/2016 9:00 AM CDT Respiratory Rate - - Oxygen Saturation 98% 08/17/2016 9:00 AM CDT Inhaled Oxygen - - Concentration Weight 95.3 kg (210 lb) 03/31/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 Height 167.6 cm (5' 5.98") 03/31/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 Body Mass Index 33.92 03/31/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 Plan of Treatment Date Type Specialty Care Team Description 03/31/2017 Procedure Pass Urology Health Maintenance Due Date Last Done Comments PHYSICAL (COMPREHENSIVE) 1941 EXAM PERTUSSIS VACCINE 1945 TETANUS VACCINE 06/19/1951 SHINGLES VACCINE 1994 PREVNAR/PNEUMOVAX (#2) 02/09/2016 02/08/2015 INFLUENZA VACCINE 10/25/2016 01/08/2015 Implants Implanted Type Area Manager Statistical Device Expiration Model / Identifier Date Serial / Lot Left Knee Knee Set Stent 75cm 7fr Labor Relations Worker .038in COOK GRP:COOK 06/14/2019 [id number] / 5mm Pigtail Curve Ureter NA / Implanted: Qty: 1 on 08/10/2016 by Cory Pickard MD Results * CT ABD/PELV W CONTRAST (03/31/2017 [...] Interface, Radiant Results - 03/31/2017 6: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 CHEST, ABDOMEN AND PELVIS Clinical Indication: [...] Interface, Radiant Results - 03/31/2017 6: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 CHEST, ABDOMEN AND PELVIS Clinical Indication: [...] periodic follow-up is suggested. Approved by Curt lAbert M.D. on 03/31/2017 1:51 PM By my [...] 0.4 - 1.24 MG/DL Specimen Performing Laboratory [facility] [address] [place] [address] * CBC (03/31/2017 11:59 AM) Component Value [...] - 11 FL Specimen Performing Laboratory Blood [facility] [address] [place] [address] * PROSTATIC SPECIFIC ANTIGEN-PSA (03/31/2017 11:59 AM) Component Value Ref Range Prostatic Specific 0.02 <4.0 NG/ML Antigen Specimen Performing Laboratory Blood [facility] [address] [place] [address] * BASIC METABOLIC PANEL (03/31/2017 11:59 AM) [...] Performing Laboratory Blood [facility] [address] [place] [address] from Last 3 Months
--- OUTSIDE RECORDS SUMMARY | 2017-04-02 18:28 | XMS REPORT | Encounter Summary ---
Author Author [facility] Organization [facility] Address Unknown Phone Unavailable Care Team Providers Care Courtesy Van Driver Name Role Phone PCP Unavailable Reason for Referral * Radiology Services Status Reason Specialty Diagnoses / Referred By Referred To Procedures Contact Contact New Request Radiology Diagnoses Magi Amaro MD neoplasm of [address] unspecified site [address] (HCC) [place] [address] rocedures Phone: CT ABD/PELV WO/W [phone] CONTRAST Reason for Visit * Reason Comments Bladder Cancer Encounter Details Date Type Department Care Team Description 03/31/2017 Office Visit [facility] Cory Amaro, Malignant neoplasm of Physicians - Urology urinary bladder, 2ND FLOOR POD A [address] unspecified site (HCC) [address] (Primary Dx);[place] [address] cancer (HCC) [place], [place] [phone] [id number] [phone] Social History Tobacco Use Types Packs/Day Years Used Date Former Smoker Cigarettes, Cigars 1.5 20 Quit: 03/27/1974 Smokeless Tobacco: Never Used Alcohol Use Drinks/Week oz/Week Comments No Sex Assigned at Date Recorded Not on file as of this encounter Last Filed Vital Signs Vital Sign Reading Time Taken Blood Pressure 140/82 03/31/2017 2:03 PM CLINICAL 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 Date of Service: 03/31/2017 Subjective: Leonid Kennedy Jr. is a 81 y.o. male. 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 With an incidentally detected [place] 73+ 4P T3a N0 MX prostate cancer. He returns today in follow-up. 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 He returns today without significant complaints problems. He denies any recent infections problems with stoma or blood per urethra. Review of Systems Constitutional: Negative for chills, fatigue and fever. HENT: Negative for hearing loss. Eyes: Negative for visual disturbance. Respiratory: Negative for shortness of breath. Cardiovascular: Negative for chest pain and leg swelling. Gastrointestinal: Negative for abdominal pain. Genitourinary: See HPI Musculoskeletal: Negative for back pain. Skin: Negative for rash. Neurological: Negative for weakness. Psychiatric/Behavioral: Negative for confusion. Objective: acetaminophen (TYLENOL) 325 mg tablet Take [...] needed for Nausea or Vomiting. Ostomy Supplies [facility] Use 10 Units as directed as Needed [...] Take 1 Cap by mouth daily. Vitals: 03/31/17 1403 BP: 140/82 Pulse: 99 Weight: 95.3 kg (210 lb) Height: 167.6 cm (65.98") Body mass index is 33.92 kg/(m^2). Physical Exam Constitutional: He is oriented to person, place, and time. He appears well- developed and well-nourished. HENT: Head: Normocephalic. Eyes: Right eye exhibits no discharge. Left eye exhibits no discharge. Neck: Normal range of motion. Cardiovascular: Normal rate and regular rhythm. Pulmonary/Chest: Effort normal and breath sounds normal. No respiratory distress. Abdominal: Soft. He exhibits no distension. There is no tenderness. Stoma healthy Incisions well healed Musculoskeletal: He exhibits no edema. Neurological: He is alert and oriented to person, place, and time. Skin: Skin is warm. No rash noted. Psychiatric: He has a normal mood and affect. Creatinine 1.1. PSA 0.02 Ct CHEST: 1. No thoracic metastatic disease. 2. No focal rib lesion is identified. ABDOMEN AND PELVIS: 1. Previous cystoprostatectomy, pelvic lymph node dissection, and right lower quadrant urinary diversion without iliac adenopathy or abdominal metastatic disease. 2. Mild increase in size of a right inguinal lymph node. This is most likely a reactive node, however, routine periodic follow-up is suggested. Assessment and Plan: 1. Bladder cancer status post radical cystectomy with ileal conduit urinary diversion without evidence of disease recurrence doing well without evidence of infection and good renal function. 2. Prostate cancer status post radical prostatectomy with an undetectable PSA. 3. Follow-up in [address] scan chest x-ray and labs. in this encounter Plan of Treatment Date Type Specialty Care Team Description 03/31/2017 Procedure Pass Urology Name Priority Associated Diagnoses Order Schedule BASIC METABOLIC PANEL Routine Malignant neoplasm of Expected: 09/27/2017 urinary bladder, (Approximate), Expires: unspecified site (HCC) 03/31/2018 PROSTATIC SPECIFIC ANTIGEN-PSA Routine Prostate cancer (HCC) Expected: 09/27/2017 (Approximate), Expires: 03/31/2018 CHEST 2 VIEWS Routine Malignant neoplasm of Expected: 09/27/2017 urinary bladder, (Approximate), Expires: unspecified site (HCC) 09/27/2018 CT ABD/PELV WO/W CONTRAST Routine Malignant neoplasm of Expected: 2017 urinary bladder, (Approximate), Expires: unspecified site (HCC) 09/27/2018 as of this encounter Visit Diagnoses Diagnosis Malignant neoplasm of urinary bladder, unspecified site (HCC) - Primary Prostate cancer (HCC) Malignant neoplasm of prostate in this encounter
--- OUTSIDE RECORDS SUMMARY | 2017-04-02 18:28 | XMS REPORT | Encounter Summary ---
Author Author [facility] Organization [facility] Address Unknown Phone Unavailable Care Team Providers Care [employer] Name Role Phone PCP Unavailable Encounter Details Date Type Department Care Team Description 03/31/2017 Procedure Pass [facility] Physicians - Urology 2ND FLOOR POD A [address] [place] [address] Social History Tobacco Use Types Packs/Day Years [...]
--- OUTSIDE RECORDS SUMMARY | 2017-04-02 18:33 | XMS REPORT | Continuity of Care Document ---
Author Author [facility] Organization [facility] Address Unknown Phone Unavailable Allergies Active Description Code Type Severity Reaction Onset Reported/Identified Relationship to Patient Clinical Status Yes BEE STINGS BEE STINGS Severe SOA/HIVES 11/01/2010 Yes NKANo Known Allergies NKA Miscellaneous Allergy Mild N/A 11/24/2011 Medications There is no data. Problems Date Dx Coded Attending Type Code Diagnosis Diagnosed By 02/23/1651 CARLI PURDY, BLAKE Miller Ot M54.5 LOW BACK PAIN 08/01/2010 Ot 272.4 HYPERLIPIDEMIA NEC/NOS 08/01/2010 Ot 401.9 HYPERTENSION NOS 08/01/2010 Ot 414.00 CORON ATHEROSCLER NOS TYPE VESSEL, NATIV 08/01/2010 Ot 433.30 MULT BILTRAL ARTERY OCCLUSION WO CEREBRA 08/01/2010 Ot 458.0 ORTHOSTATIC HYPOTENSION 08/01/2010 Ot 600.00 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 08/01/2010 Ot 786.05 SHORTNESS OF BREATH 08/01/2010 Ot V45.81 AORTOCORONARY BYPASS 08/01/2010 Ot V58.66 LONG-TERM ( CURRENT) USE OF ASPIRIN 08/01/2010 Ot V58.69 OTH MED,LT, CURRENT USE 11/01/2010 Ot 414.00 CORON ATHEROSCLER NOS TYPE VESSEL, NATIV 11/01/2010 Ot 786.05 SHORTNESS OF BREATH 11/01/2010 Ot V45.81 AORTOCORONARY BYPASS 01/31/2011 Ot V45.82 PERCUTANEOUS TRANSLUM CORON ANGIOPLASTY 01/31/2011 Ot V57.89 REHABILITATION PROC NEC 02/09/2011 Ot 401.9 HYPERTENSION NOS 02/09/2011 Ot 780.4 DIZZINESS AND GIDDINESS 05/22/2011 Ot 487.1 FLU W RESP MANIFEST NEC 05/22/2011 Ot 786.2 COUGH 05/22/2011 Ot 786.52 PAINFUL RESPIRATION 12/07/2011 Ot 272.4 HYPERLIPIDEMIA NEC/NOS 12/07/2011 Ot 273.8 DIS PLAS PROTEIN MET NEC 12/07/2011 Ot 275.41 HYPOCALCEMIA 12/07/2011 Ot 276.1 HYPOSMOLALITY 12/07/2011 Ot 276.8 HYPOPOTASSEMIA 12/07/2011 Ot 285.9 ANEMIA NOS 12/07/2011 Ot 293.9 UNSPEC TRANSIENT MENTAL DIS IN COND CLAS 12/07/2011 Ot 401.9 HYPERTENSION NOS 12/07/2011 Ot 414.01 CORONARY ATHEROSCLEROSIS OF [place] CORON 12/07/2011 Ot 496 CHR AIRWAY OBSTRUCT NEC 12/07/2011 Ot 564.00 UNSPEC CONSTIPATION 12/07/2011 Ot 599.0 URIN TRACT INFECTION NOS 12/07/2011 Ot 599.70 HEMATURIA, UNSPECIFIED 12/07/2011 Ot 600.01 HYPERTROPHY (BENIGN) OF PROSTATE W URINA 12/07/2011 Ot 786.09 RESPIRATORY ABNORM NEC 12/07/2011 Ot 788.20 RETENTION OF URINE NOS 12/07/2011 Ot V15.82 HISTORY OF TOBACCO USE 12/07/2011 Ot V43.65 KNEE JOINT REPLACEMENT STATUS 12/07/2011 Ot V45.82 PERCUTANEOUS TRANSLUM CORON ANGIOPLASTY 12/07/2011 Ot V54.81 AFTERCARE FOLLOWING JOINT REPLACEMENT 12/07/2011 Ot V57.1 PHYSICAL THERAPY NEC 12/07/2011 Ot V57.21 ENCOUNTER FOR OCCUPATIONAL THERAPY 01/19/2012 Ot V43.65 KNEE JOINT REPLACEMENT STATUS 01/19/2012 Ot V54.81 AFTERCARE FOLLOWING JOINT REPLACEMENT 01/19/2012 Ot V57.1 PHYSICAL THERAPY NEC 02/10/2012 Ot 982.8 TOXIC EFF NONPETROL SOLV 02/10/2012 Ot E849.0 ACCIDENT IN HOME 02/10/2012 Ot E862.4 ACC POISN- SOLVENTS NEC 09/20/2013 ASHLY BARAHONA Ot 412 OLD MYOCARDIAL INFARCT 09/20/2013 ASHLY BARAHONA Ot 716.90 ARTHROPATHY NOS-UNSPEC 09/20/2013 ASHLY BARAHONA Ot 883.0 OPEN WOUND OF FINGER 09/20/2013 ASHLY BARAHONA Ot E920.8 ACC-CUTTING INSTRUM NEC 09/20/2013 ASHLY BARAHONA Ot V06.1 [id number], COMBINED [ 09/20/2013 ASHLY BARAHONA Ot V45.81 AORTOCORONARY BYPASS 09/20/2013 ASHLY BARAHONA Ot V58.62 ENCOUNT FOR LONG-TERM(CURRENT) USE OF AN 09/20/2013 ASHLY BARAHONA Ot V58.63 LONG-TERM(CURRENT)USE OF ANTIPLATELET/AN 09/20/2013 ASHLY BARAHONA Ot V58.66 LONG-TERM (CURRENT) USE OF ASPIRIN 09/20/2013 ASHLY BARAHONA Ot V58.69 OTH MED,LT,CURRENT USE 12/30/2013 TAVIA LOPEZ MD Ot 883.0 OPEN WOUND OF FINGER 12/30/2013 TAVIA LOPEZ MD Ot E000.8 OTHER EXTERNAL CAUSE STATUS 12/30/2013 TAVIA LOPEZ MD Ot E920.8 ACC-CUTTING INSTRUM NEC 01/06/2014 TAVIA LOPEZ MD Ot V58.32 ENCOUNTER FOR REMOVAL OF SUTURES 02/06/2014 Ot 729.5 02/06/2014 Ot 782.3 02/06/2014 Ot 592.0 02/06/2014 Ot 368.9 02/06/2014 Ot 780.4 02/06/2014 Ot 784.59 02/06/2014 Ot 272.4 02/06/2014 Ot 414.01 02/06/2014 Ot 715.95 02/06/2014 Ot 715.36 02/06/2014 Ot 272.4 02/06/2014 Ot 401.9 02/06/2014 Ot 414.01 02/06/2014 Ot 433.10 02/06/2014 Ot 272.4 02/06/2014 Ot 401.9 02/06/2014 Ot 414.01 02/06/2014 Ot 433.10 02/06/2014 Ot 401.9 02/06/2014 Ot 433.10 02/06/2014 Ot 401.9 02/06/2014 Ot 414.9 02/06/2014 Ot 786.05 02/06/2014 Ot 786.50 02/06/2014 Ot V58.63 02/06/2014 Ot V58.66 02/06/2014 Ot V58.69 02/06/2014 Ot 786.50 02/06/2014 Ot 959.9 02/06/2014 Ot E000.8 02/06/2014 Ot E849.0 02/06/2014 Ot E928.9 02/06/2014 Ot 593.2 02/06/2014 Ot 783.21 02/06/2014 Ot 562.10 02/06/2014 Ot 599.71 02/06/2014 Ot 793.5 02/06/2014 CARLI PURDY, BLAKE Miller Ot 780.4 02/06/2014 COLTEN GOMZE Michael UNDERGROUND ELECTRICIAN Ot 722.52 02/06/2014 YU PURDY, JAVIER Cannon Ot 600.00 02/06/2014 YU PURDY, JAVIER A Ot V72.63 02/06/2014 YU PURDY, JAVIER A Ot V72.83 02/06/2014 YU PURDY, JAVIER A Ot V74.8 02/07/2014 YU PURDY, JAVIER A Ot 600.00 02/07/2014 YU PURDY, JAVIER A Ot V72.63 02/07/2014 YU PURDY, JAVIER A Ot V72.83 02/07/2014 YU PURDY, JAVIER A Ot V74.8 02/07/2014 BLAKE BOYCE MD Ot 272.4 HYPERLIPIDEMIA NEC/NOS 02/07/2014 BLAKE BOYCE MD Ot 401.9 HYPERTENSION NOS 02/07/2014 BLAKE BOYCE MD Ot 412 OLD MYOCARDIAL INFARCT 02/07/2014 BLAKE BOYCE MD Ot 414.00 CORON ATHEROSCLER NOS TYPE VESSEL, NATIV 02/07/2014 BLAKE BOYCE MD Ot 600.00 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 02/07/2014 BLAKE BOYCE MD Ot 715.90 OSTEOARTHROS NOS-UNSPEC 02/07/2014 BLAKE BOYCE MD Ot 786.59 CHEST PAIN NEC 02/07/2014 BLAKE BOYCE MD Ot V45.81 AORTOCORONARY BYPASS 02/07/2014 BLAKE BOYCE MD Ot V45.82 PERCUTANEOUS TRANSLUM CORON ANGIOPLASTY 02/11/2014 YU PURDY, JAVIER Cannon Ot 600.00 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 02/12/2014 LOUISA ARBOLEDA UNDERGROUND ELECTRICIAN Ot 599.70 HEMATURIA, UNSPECIFIED 02/12/2014 LOUISA ARBOLEDA UNDERGROUND ELECTRICIAN Ot V45.89 POSTSURGICAL STATES NEC 03/10/2014 ILENE PURDY, ROSARIO Nguyen Ot 211.3 BENIGN NEOPLASM LG BOWEL 03/10/2014 ILENE PURDY, ROSARIO Nguyen Ot 562.10 DIVERTICULOSIS COLON (W/O MENT OF HEMORR 03/17/2014 ILENE PURDY, ROSARIO Nguyen Ot 211.3 03/17/2014 ROSARIO ODOM MD M Ot 272.0 03/17/2014 ROSARIO ODOM MD Ot 412 03/17/2014 ROSARIO ODOM MD Ot 414.01 03/17/2014 ROSARIO ODOM MD Ot 715.36 03/17/2014 ROSARIO ODOM MD Ot V43.65 03/17/2014 ROSARIO ODOM MD Ot 211.3 BENIGN NEOPLASM LG BOWEL 03/17/2014 ROSARIO ODOM MD Ot 272.0 PURE HYPERCHOLESTEROLEM 03/17/2014 ROSARIO ODOM MD Ot 401.9 HYPERTENSION NOS 03/17/2014 ROSARIO ODOM MD Ot 412 OLD MYOCARDIAL INFARCT 03/17/2014 ROSARIO ODOM MD Ot 414.01 CORONARY ATHEROSCLEROSIS OF [place] CORON 03/17/2014 ILENE PURDY, ROSARIO Nguyen Ot 715.36 LOC OSTEOARTH NOS-L/LEG 03/17/2014 ROSARIO ODOM MD Ot V10.51 HX OF BLADDER MALIGNANCY 03/17/2014 ROSARIO ODOM MD Ot V43.65 KNEE JOINT REPLACEMENT STATUS 03/17/2014 ROSARIO ODOM MD Ot V45.81 AORTOCORONARY BYPASS 04/01/2014 YU PURDY, JAVIER Cannon Ot 185 MALIGN NEOPL PROSTATE 04/04/2014 JAVIER NICHOLAS MD Ot 596.7 BLADDER WALL HEMORRHAGE 04/04/2014 JAVIER NICHOLAS MD Ot 599.0 URIN TRACT INFECTION NOS 04/04/2014 JAVIER NICHOLAS MD Ot 788.20 RETENTION OF URINE NOS 04/24/2014 JAVIER NICHOLAS MD Ot 185 04/24/2014 JAVIER NICHOLAS MD Ot V72.63 04/24/2014 JAVIER NICHOLAS MD Ot V74.8 06/26/2014 Ot 331.9 06/26/2014 Ot 728.9 08/29/2014 BLAKE BOYCE MD Ot 188.9 MALIG [place] BLADDER NOS 08/29/2014 BLAKE BOYCE MD Ot 300.00 ANXIETY STATE NOS 08/29/2014 CARLI PURDY, BLAKE Miller Ot 401.9 HYPERTENSION NOS 08/29/2014 CARLI PURDY, BLAKE Miller Ot 414.00 CORON ATHEROSCLER NOS TYPE VESSEL, NATIV 08/29/2014 CARLI PURDY, BLAKE Miller Ot 530.5 DYSKINESIA OF ESOPHAGUS 08/29/2014 CARLI PURDY, BLAKE Miller Ot 530.81 ESOPHAGEAL REFLUX 08/29/2014 CARLI PURDY, BLAKE Miller Ot V45.81 AORTOCORONARY BYPASS 08/29/2014 CARLI PURDY, BLAKE Miller Ot V45.82 PERCUTANEOUS TRANSLUM CORON ANGIOPLASTY 09/04/2014 YU PURDY, JAVIER Cannon Ot 562.10 09/04/2014 YU PURDY, JAVIER A Ot 599.70 09/04/2014 YU PURDY, JAVIER A Ot 721.3 09/04/2014 YU PURDY, JAVIER A Ot 733.90 09/04/2014 YU PURDY, JAVIER A Ot 785.6 09/22/2014 YU PURDY, JAVIER A Ot 562.10 09/22/2014 YU PURDY, JAVIER A Ot 599.70 09/22/2014 YU PURDY, JAVIER A Ot 721.3 09/22/2014 YU PURDY, JAVIER A Ot 733.90 09/22/2014 YU PURDY, JAVIER A Ot 785.6 11/17/2014 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 UNDERGROUND ELECTRICIAN Ot 722.52 11/17/2014 YU PURDY, JAVIER A Ot 600.00 11/17/2014 YU PURDY, JAVIER A Ot V72.63 11/17/2014 YU PURDY, JAVIER A Ot V72.83 11/17/2014 YU PURDY, JAVIER A Ot V74.8 11/28/2014 LOUISA ARBOLEDA UNDERGROUND ELECTRICIAN Ot 882.0 OPEN WOUND OF HAND 11/28/2014 LOUISA ARBOLEDA UNDERGROUND ELECTRICIAN Ot 883.0 OPEN WOUND OF FINGER 11/28/2014 LOUISA ARBOLEDA UNDERGROUND ELECTRICIAN Ot E000.8 OTHER EXTERNAL CAUSE STATUS 11/28/2014 LOUISA ARBOLEDA UNDERGROUND ELECTRICIAN Ot E849.0 ACCIDENT IN HOME 11/28/2014 LOUISA ARBOLEDA UNDERGROUND ELECTRICIAN Ot E919.4 WOODWORKING MACHINE ACC 11/28/2014 ARBOLEDALOUISA UNDERGROUND ELECTRICIAN Ot V06.1 [id number], COMBINED [ 03/04/2015 YU PURDY, JAVIER Cannon Ot R31.9 03/16/2015 YU PURDY, JAVIER Cannon Ot R31.9 06/16/2015 Ot 272.4 06/16/2015 Ot 401.9 06/16/2015 Ot 414.01 06/16/2015 Ot 433.10 06/16/2015 Ot 272.4 06/16/2015 Ot 401.9 06/16/2015 Ot 414.01 06/16/2015 Ot 433.10 06/16/2015 Ot 401.9 06/16/2015 Ot 433.10 06/16/2015 Ot 401.9 06/16/2015 Ot 414.9 06/16/2015 Ot 786.05 06/16/2015 Ot 786.50 06/16/2015 Ot V58.63 06/16/2015 Ot V58.66 06/16/2015 Ot V58.69 06/16/2015 Ot 786.50 06/16/2015 Ot 959.9 06/16/2015 Ot E000.8 06/16/2015 Ot E849.0 06/16/2015 Ot E928.9 06/16/2015 Ot 593.2 06/16/2015 Ot 783.21 06/16/2015 Ot 562.10 06/16/2015 Ot 599.71 06/16/2015 Ot 793.5 06/16/2015 CARLI PURDY, BLAKE Miller Ot 780.4 06/16/2015 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 UNDERGROUND ELECTRICIAN Ot 722.52 06/16/2015 YU PURDY, JAVIER Cannon Ot 600.00 06/16/2015 YU PURDY, JAVIER Cannon Ot V72.63 06/16/2015 YU PURDY, JAVIER Cannon Ot V72.83 06/16/2015 YU PURDY, JAVIER Cannon Ot V74.8 06/16/2015 ILENE PURDY, ROSARIO Nguyen Ot V72.84 06/16/2015 ILENE PURDY, ROSARIO Nguyen Ot 569.9 06/16/2015 ILENE PURDY, ROSARIO Nguyen Ot V72.83 06/16/2015 ILENE PURDY, ROSARIO Nguyen Ot V74.8 06/16/2015 YU PURDY, JAVIER Cannon Ot 185 06/16/2015 YU PURDY, JAVIER Cannon Ot V72.63 06/16/2015 YU PURDY, JAVIER Cannon Ot V74.8 06/16/2015 Ot 331.9 06/16/2015 Ot 728.9 06/16/2015 YU UPRDY, JAVIER A Ot 562.10 06/16/2015 YU PURDY, JAVIER A Ot 599.70 06/16/2015 YU PURDY, JAVIER Cannon Ot 721.3 06/16/2015 YU PURDY, JAVIER Cannon Ot 733.90 06/16/2015 YU PUDRY, JAVIER Cannon Ot 785.6 06/16/2015 YU PURDY, JAVIER Cannon Ot R31.9 06/16/2015 Ot 272.4 06/16/2015 Ot 401.9 06/16/2015 Ot 414.01 06/16/2015 Ot 433.10 06/16/2015 Ot 272.4 06/16/2015 Ot 401.9 06/16/2015 Ot 414.01 06/16/2015 Ot 433.10 06/16/2015 Ot 401.9 06/16/2015 Ot 433.10 06/16/2015 Ot 401.9 06/16/2015 Ot 414.9 06/16/2015 Ot 786.05 06/16/2015 Ot 786.50 06/16/2015 Ot V58.63 06/16/2015 Ot V58.66 06/16/2015 Ot V58.69 06/16/2015 Ot 786.50 06/16/2015 Ot 959.9 06/16/2015 Ot E000.8 06/16/2015 Ot E849.0 06/16/2015 Ot E928.9 06/16/2015 Ot 593.2 06/16/2015 Ot 783.21 06/16/2015 Ot 562.10 06/16/2015 Ot 599.71 06/16/2015 Ot 793.5 06/16/2015 CARLI PURDY, BLAKE Miller Ot 780.4 06/16/2015 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 APRN Ot 722.52 06/16/2015 YU PURDY, JAVIER Cannon Ot 600.00 06/16/2015 YU PURDY, JAVIER Davis Ot V72.63 06/16/2015 YU PURDY, JAVIER A Ot V72.83 06/16/2015 YU PURDY, JAVIER A Ot V74.8 06/16/2015 ILENE PURDY, ROSARIO M Ot V72.84 06/16/2015 ILENE PURDY, ROSARIO M Ot 569.9 06/16/2015 ILENE PURDY, ROSARIO M Ot V72.83 06/16/2015 ILENE PURDY, ROSARIO M Ot V74.8 06/16/2015 YU PURDY, JAVIER A Ot 185 06/16/2015 YU PURDY, JAVIER A Ot V72.63 06/16/2015 YU PURDY, JAVIER A Ot V74.8 06/16/2015 Ot 331.9 06/16/2015 Ot 728.9 06/16/2015 YU PURDY, JAVIER A Ot 562.10 06/16/2015 YU PURDY, JAVIER A Ot 599.70 06/16/2015 YU PURDY, JAVIER A Ot 721.3 06/16/2015 YU PURDY, JAVIER A Ot 733.90 06/16/2015 YU PURDY, JAVIER A Ot 785.6 06/16/2015 YU PURDY, JAVIER A Ot R31.9 06/22/2015 CARLI PURDY, BLAKE Miller Ot M46.06 07/02/2015 ILENE PURDY, ROSARIO Nguyen Ot K63.5 POLYP OF COLON 07/02/2015 ILENE PURDY, ROSARIO Nguyen Ot Z01.818 ENCOUNTER FOR OTHER PREPROCEDURAL EXAMIN 07/03/2015 ILENE PURDY, ROSARIO Nguyen Ot K63.5 07/03/2015 ILENE PURDY, ROSARIO Nguyen Ot Z01.818 07/06/2015 Ot 272.4 07/06/2015 Ot 401.9 07/06/2015 Ot 414.01 07/06/2015 Ot 433.10 07/06/2015 Ot 401.9 07/06/2015 Ot 433.10 07/06/2015 Ot 401.9 07/06/2015 Ot 414.9 07/06/2015 Ot 786.05 07/06/2015 Ot 786.50 07/06/2015 Ot V58.63 07/06/2015 Ot V58.66 07/06/2015 Ot V58.69 07/06/2015 Ot 786.50 07/06/2015 Ot 959.9 07/06/2015 Ot E000.8 07/06/2015 Ot E849.0 07/06/2015 Ot E928.9 07/06/2015 Ot 593.2 07/06/2015 Ot 783.21 07/06/2015 Ot 562.10 07/06/2015 Ot 599.71 07/06/2015 Ot 793.5 07/06/2015 CARLI PURDY, BLAKE Miller Ot 780.4 07/06/2015 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 APRN Ot 722.52 07/06/2015 YU PURDY, JAVIER A Ot 600.00 07/06/2015 YU PURDY, JAVIER A Ot V72.63 07/06/2015 YU PURDY, JAVIER A Ot V72.83 07/06/2015 YU PURDY, JAVIER A Ot V74.8 07/06/2015 ILENE PURDY, ROSARIO M Ot V72.84 07/06/2015 ILENE PURDY, ROSARIO M Ot 569.9 07/06/2015 ILENE PURDY, ROSARIO M Ot V72.83 07/06/2015 ILENE PURDY, ROSARIO M Ot V74.8 07/06/2015 YU PURDY, JAVIER A Ot 185 07/06/2015 YU PURDY, JAVIER A Ot V72.63 07/06/2015 YU PURDY, JAVIER A Ot V74.8 07/06/2015 Ot 331.9 07/06/2015 Ot 728.9 07/06/2015 YU PURDY, JAVIER A Ot 562.10 07/06/2015 YU PURDY, JAVIER A Ot 599.70 07/06/2015 YU PURDY, JAVIER A Ot 721.3 07/06/2015 YU PURDY, JAVIER A Ot 733.90 07/06/2015 YU PURDY, JAVIER A Ot 785.6 07/06/2015 YU PURDY, JAVIER A Ot R31.9 07/06/2015 CARLI PURDY, BLAKE Miller Ot M46.06 07/06/2015 CARLI PURDY, BLAKE Miller Ot M46.06 07/06/2015 CARLI PURDY, BLAKE Miller Ot M54.5 07/06/2015 CARLI PURDY, BLAKE Miller Ot 780.4 07/06/2015 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 APRN Ot 722.52 07/06/2015 YU PURDY, JAVIER A Ot 600.00 07/06/2015 YU PURDY, JAVIER A Ot V72.63 07/06/2015 YU PURDY, JAVIER A Ot V72.83 07/06/2015 YU PURDY, JAVIER A Ot V74.8 07/06/2015 ILENE PURDY, ROSARIO M Ot V72.84 07/06/2015 ILENE PURDY, ROSARIO M Ot 569.9 07/06/2015 ILENE PURDY, ROSARIO M Ot V72.83 07/06/2015 ILENE PURDY, ROSARIO M Ot V74.8 07/06/2015 YU PURDY, JAVIER A Ot 185 07/06/2015 YU PURDY, JAVIER A Ot V72.63 07/06/2015 YU PURDY, JAVIER A Ot V74.8 07/06/2015 Ot 331.9 07/06/2015 Ot 728.9 07/06/2015 YU PURDY, JAVIER A Ot 562.10 07/06/2015 YU PURDY, JAVIER A Ot 599.70 07/06/2015 YU PURDY, JAVIER A Ot 721.3 07/06/2015 YU PURDY, JAVIER A Ot 733.90 07/06/2015 YU PURDY, JAVIER A Ot 785.6 07/06/2015 YU PURDY, JAVIER A Ot R31.9 07/06/2015 CARLI PURDY, BLAKE Miller Ot M46.06 07/06/2015 ILENE PURDY, ROSARIO M Ot K62.1 RECTAL POLYP 07/06/2015 ILENE PURDY, ROSARIO M Ot K63.5 POLYP OF COLON 07/07/2015 ILENE PURDY, ROSARIO M Ot K62.1 07/07/2015 ILENE PURDY, ROSARIO M Ot K63.5 07/07/2015 CARLI PURDY, BLAKE Miller Ot M46.06 07/10/2015 CARLI PURDY, BLAKE Miller Ot M46.06 SPINAL ENTHESOPATHY, LUMBAR REGION 07/17/2015 CARLI PURDY, BLAKE Miller Ot M54.5 LOW BACK PAIN 07/17/2015 Ot 272.4 HYPERLIPIDEMIA NEC/NOS 07/17/2015 Ot 401.9 HYPERTENSION NOS 07/17/2015 Ot 414.01 CORONARY ATHEROSCLEROSIS OF [place] CORON 07/17/2015 Ot 433.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 W O CEREBRAL IN 07/17/2015 Ot 401.9 HYPERTENSION NOS 07/17/2015 Ot 433.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 W O CEREBRAL IN 07/17/2015 Ot 401.9 HYPERTENSION NOS 07/17/2015 Ot 414.9 CHR ISCHEMIC HRT DIS NOS 07/17/2015 Ot 786.05 SHORTNESS OF BREATH 07/17/2015 Ot 786.50 CHEST PAIN NOS 07/17/2015 Ot V58.63 LONG-TERM( CURRENT)USE OF ANTIPLATELET/AN 07/17/2015 Ot V58.66 LONG-TERM ( CURRENT) USE OF ASPIRIN 07/17/2015 Ot V58.69 OTH MED,LT, CURRENT USE 07/17/2015 Ot 786.50 CHEST PAIN NOS 07/17/2015 Ot 959.9 INJURY-SITE NOS 07/17/2015 Ot E000.8 OTHER EXTERNAL CAUSE STATUS 07/17/2015 Ot E849.0 ACCIDENT IN HOME 07/17/2015 Ot E928.9 ACCIDENT NOS 07/17/2015 Ot 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, ACQUIRED 07/17/2015 Ot 783.21 LOSS OF WEIGHT 07/17/2015 Ot 562.10 DIVERTICULOSIS COLON (W/O MENT OF HEMORR 07/17/2015 Ot 599.71 GROSS HEMATURIA 07/17/2015 Ot 793.5 NOSP (ABN) FINDINGS ON RADIOLOGICAL OT 07/17/2015 CARLI PURDY, BLAKE Miller Ot 780.4 DIZZINESS AND GIDDINESS 07/17/2015 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 UNDERGROUND ELECTRICIAN Ot 722.52 LUMB/LUMBOSAC DISC DEGEN 07/17/2015 YU PURDY, JAVIER Cannon Ot 600.00 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 07/17/2015 YU PURDY, JAVIER Cannon Ot V72.63 PRE-PROCEDURAL LABORATORY EXAMINATION 07/17/2015 YU PURDY, JAVIER Cannon Ot V72.83 EXAM PRE-OPERATIVE NEC 07/17/2015 YU PURDY, JAVIER Cannon Ot V74.8 SCREEN-BACTERIAL DIS NEC 07/17/2015 ILENE PURDY, ROSARIO Nguyen Ot V72.84 EXAM PRE-OPERATIVE NOS 07/17/2015 ILENE PURDY, ROSARIO Nguyen Ot 569.9 INTESTINAL DISORDER NOS 07/17/2015 ILENE PURDY, ROSARIO Nguyen Ot V72.83 EXAM PRE-OPERATIVE NEC 07/17/2015 ILENE PURDY, ROSARIO Nguyen Ot V74.8 SCREEN-BACTERIAL DIS NEC 07/17/2015 YU PURDY, JAVIER Cannon Ot 185 MALIGN NEOPL PROSTATE 07/17/2015 YU PURDY, JAVIER Cannon Ot V72.63 PRE-PROCEDURAL LABORATORY EXAMINATION 07/17/2015 YU PURDY, JAVIER Cannon Ot V74.8 SCREEN-BACTERIAL DIS NEC 07/17/2015 Ot 331.9 CEREB DEGENERATION NOS 07/17/2015 Ot 728.9 MUSCLE/ LIGAMENT DIS NOS 07/17/2015 JAVIER NICHOLAS MD Ot 562.10 DIVERTICULOSIS COLON (W/O MENT OF HEMORR 07/17/2015 YU PURDY, JAVIER Cannon Ot 599.70 HEMATURIA, UNSPECIFIED 07/17/2015 YU PURDY, JAVIER Cannon Ot 721.3 LUMBOSACRAL SPONDYLOSIS 07/17/2015 YU PURDY, JAVIER Cannon Ot 733.90 BONE CARTILAGE DIS NOS 07/17/2015 JAVIER NICHOLAS MD Ot 785.6 ENLARGEMENT LYMPH NODES 07/17/2015 YU PURDY, JAVIER Cannon Ot R31.9 HEMATURIA, UNSPECIFIED 07/17/2015 CARLI PURDY, BLAKE Miller Ot M46.06 SPINAL ENTHESOPATHY, LUMBAR REGION 07/17/2015 CARLI PURDY, BLAKE Miller Ot M46.06 SPINAL ENTHESOPATHY, LUMBAR REGION 07/17/2015 CARLI PURDY, BLAKE Miller Ot M54.5 LOW BACK PAIN 07/17/2015 CARLI PURDY, BLAKE D Ot M54.5 LOW BACK PAIN 07/21/2015 CARLI PURDY, BLAKE D Ot M54.5 LOW BACK PAIN 07/29/2015 CARLI PURDY, BLAKE Miller Ot M46.06 SPINAL ENTHESOPATHY, LUMBAR REGION 07/29/2015 CARLI PURDY, BLAKE Miller Ot M46.06 SPINAL ENTHESOPATHY, LUMBAR REGION 07/31/2015 Ot 272.4 HYPERLIPIDEMIA NEC/NOS 07/31/2015 Ot 401.9 HYPERTENSION NOS 07/31/2015 Ot 414.01 CORONARY ATHEROSCLEROSIS OF [place] CORON 07/31/2015 Ot 433.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 W O CEREBRAL IN 07/31/2015 Ot 401.9 HYPERTENSION NOS 07/31/2015 Ot 433.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 W O CEREBRAL IN 07/31/2015 Ot 401.9 HYPERTENSION NOS 07/31/2015 Ot 414.9 CHR ISCHEMIC HRT DIS NOS 07/31/2015 Ot 786.05 SHORTNESS OF BREATH 07/31/2015 Ot 786.50 CHEST PAIN NOS 07/31/2015 Ot V58.63 LONG-TERM( CURRENT)USE OF ANTIPLATELET/AN 07/31/2015 Ot V58.66 LONG-TERM ( CURRENT) USE OF ASPIRIN 07/31/2015 Ot V58.69 OTH MED,LT, CURRENT USE 07/31/2015 Ot 786.50 CHEST PAIN NOS 07/31/2015 Ot 959.9 INJURY-SITE NOS 07/31/2015 Ot E000.8 OTHER EXTERNAL CAUSE STATUS 07/31/2015 Ot E849.0 ACCIDENT IN HOME 07/31/2015 Ot E928.9 ACCIDENT NOS 07/31/2015 Ot 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, ACQUIRED 07/31/2015 Ot 783.21 LOSS OF WEIGHT 07/31/2015 Ot 562.10 DIVERTICULOSIS COLON (W/O MENT OF HEMORR 07/31/2015 Ot 599.71 GROSS HEMATURIA 07/31/2015 Ot 793.5 NOSP (ABN) FINDINGS ON RADIOLOGICAL OT 07/31/2015 CARLI PURDY, BLAKE Miller Ot 780.4 DIZZINESS AND GIDDINESS 07/31/2015 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 UNDERGROUND ELECTRICIAN Ot 722.52 LUMB/LUMBOSAC DISC DEGEN 07/31/2015 YU PURDY, JAVIER Cannon Ot 600.00 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 07/31/2015 JAVIER NICHOLAS MD Ot V72.63 PRE-PROCEDURAL LABORATORY EXAMINATION 07/31/2015 JAVIER NICHOLAS MD Ot V72.83 EXAM PRE-OPERATIVE NEC 07/31/2015 JAVIER NICHOLAS MD Ot V74.8 SCREEN-BACTERIAL DIS NEC 07/31/2015 ILENE PURDY, ROSARIO Nguyen Ot V72.84 EXAM PRE-OPERATIVE NOS 07/31/2015 ILENE PURDY, ROSARIO Nguyen Ot 569.9 INTESTINAL DISORDER NOS 07/31/2015 ROSARIO ODOM MD Ot V72.83 EXAM PRE-OPERATIVE NEC 07/31/2015 ODOM MD, ROSARIO M Ot V74.8 SCREEN-BACTERIAL DIS NEC 07/31/2015 JAVIER NICHOLAS MD Ot 185 MALIGN NEOPL PROSTATE 07/31/2015 JAVIER NICHOLAS MD Ot V72.63 PRE-PROCEDURAL LABORATORY EXAMINATION 07/31/2015 JAVIER NICHOLAS MD Ot V74.8 SCREEN-BACTERIAL DIS NEC 07/31/2015 Ot 331.9 CEREB DEGENERATION NOS 07/31/2015 Ot 728.9 MUSCLE/ LIGAMENT DIS NOS 07/31/2015 YU PURDY, JAVIER Cannon Ot 562.10 DIVERTICULOSIS COLON (W/O MENT OF HEMORR 07/31/2015 JAVIER NICHOLAS MD Ot 599.70 HEMATURIA, UNSPECIFIED 07/31/2015 JAVIER NICHOLAS MD Ot 721.3 LUMBOSACRAL SPONDYLOSIS 07/31/2015 JAVIER NICHOLAS MD Ot 733.90 BONE CARTILAGE DIS NOS 07/31/2015 JAVIER NICHOLAS MD Ot 785.6 ENLARGEMENT LYMPH NODES 07/31/2015 YU PURDY, JAVIER Cannon Ot R31.9 HEMATURIA, UNSPECIFIED 07/31/2015 CARLI PURDY, BLAKE Miller Ot M46.06 SPINAL ENTHESOPATHY, LUMBAR REGION 07/31/2015 BLAKE BOYCE MD Ot M46.06 SPINAL ENTHESOPATHY, LUMBAR REGION 07/31/2015 JOHN PURDY, TAVIA Miller Ot I45.10 UNSPECIFIED RIGHT BUNDLE-BRANCH BLOCK 07/31/2015 TAVIA LOPEZ MD Ot I51.7 CARDIOMEGALY 07/31/2015 TAVIA LOPEZ MD Ot R07.2 PRECORDIAL PAIN 07/31/2015 Ot 272.4 HYPERLIPIDEMIA NEC/NOS 07/31/2015 Ot 401.9 HYPERTENSION NOS 07/31/2015 Ot 414.01 CORONARY ATHEROSCLEROSIS OF [place] CORON 07/31/2015 Ot 433.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 W O CEREBRAL IN 07/31/2015 Ot 401.9 HYPERTENSION NOS 07/31/2015 Ot 433.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 W O CEREBRAL IN 07/31/2015 Ot 401.9 HYPERTENSION NOS 07/31/2015 Ot 414.9 CHR ISCHEMIC HRT DIS NOS 07/31/2015 Ot 786.05 SHORTNESS OF BREATH 07/31/2015 Ot 786.50 CHEST PAIN NOS 07/31/2015 Ot V58.63 LONG-TERM( CURRENT)USE OF ANTIPLATELET/AN 07/31/2015 Ot V58.66 LONG-TERM ( CURRENT) USE OF ASPIRIN 07/31/2015 Ot V58.69 OTH MED,LT, CURRENT USE 07/31/2015 Ot 786.50 CHEST PAIN NOS 07/31/2015 Ot 959.9 INJURY-SITE NOS 07/31/2015 Ot E000.8 OTHER EXTERNAL CAUSE STATUS 07/31/2015 Ot E849.0 ACCIDENT IN HOME 07/31/2015 Ot E928.9 ACCIDENT NOS 07/31/2015 Ot 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, ACQUIRED 07/31/2015 Ot 783.21 LOSS OF WEIGHT 07/31/2015 Ot 562.10 DIVERTICULOSIS COLON (W/O MENT OF HEMORR 07/31/2015 Ot 599.71 GROSS HEMATURIA 07/31/2015 Ot 793.5 NOSP (ABN) FINDINGS ON RADIOLOGICAL OT 07/31/2015 CARLI PURDY, BLAKE Miller Ot 780.4 DIZZINESS AND GIDDINESS 07/31/2015 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 UNDERGROUND ELECTRICIAN Ot 722.52 LUMB/LUMBOSAC DISC DEGEN 07/31/2015 YU PURDY, JAVIER Cannon Ot 600.00 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 07/31/2015 JAVIER NICHOLAS MD Ot V72.63 PRE-PROCEDURAL LABORATORY EXAMINATION 07/31/2015 JAVIER NICHOLAS MD Ot V72.83 EXAM PRE-OPERATIVE NEC 07/31/2015 JAVIER NICHOLAS MD Ot V74.8 SCREEN-BACTERIAL DIS NEC 07/31/2015 ILENE PURDY, ROSARIO Nguyen Ot V72.84 EXAM PRE-OPERATIVE NOS 07/31/2015 ILENE PURDY, ROSARIO Nguyen Ot 569.9 INTESTINAL DISORDER NOS 07/31/2015 ROSARIO ODOM MD Ot V72.83 EXAM PRE-OPERATIVE NEC 07/31/2015 ROSARIO ODOM MD Ot V74.8 SCREEN-BACTERIAL DIS NEC 07/31/2015 JAVIER NICHOLAS MD Ot 185 MALIGN NEOPL PROSTATE 07/31/2015 JAVIER NICHOLAS MD Ot V72.63 PRE-PROCEDURAL LABORATORY EXAMINATION 07/31/2015 JAVIER NICHOLAS MD Ot V74.8 SCREEN-BACTERIAL DIS NEC 07/31/2015 Ot 331.9 CEREB DEGENERATION NOS 07/31/2015 Ot 728.9 MUSCLE/ LIGAMENT DIS NOS 07/31/2015 YU PURDY, JAVIER Cannon Ot 562.10 DIVERTICULOSIS COLON (W/O MENT OF HEMORR 07/31/2015 YU PURDY, JAVIER Cannon Ot 599.70 HEMATURIA, UNSPECIFIED 07/31/2015 YU PURDY, JAVIER Cannon Ot 721.3 LUMBOSACRAL SPONDYLOSIS 07/31/2015 JAVIER NICHOLAS MD Ot 733.90 BONE CARTILAGE DIS NOS 07/31/2015 YU PURDY, JAVIER Cannon Ot 785.6 ENLARGEMENT LYMPH NODES 07/31/2015 YU PURDY, JAVIER Cannon Ot R31.9 HEMATURIA, UNSPECIFIED 07/31/2015 CARLI PURDY, BLAKE Miller Ot M46.06 SPINAL ENTHESOPATHY, LUMBAR REGION 07/31/2015 CALRI PURDY, BLAKE Miller Ot M46.06 SPINAL ENTHESOPATHY, LUMBAR REGION 07/31/2015 CARLI PURDY, BLAKE Miller Ot M46.06 SPINAL ENTHESOPATHY, LUMBAR REGION 08/02/2015 OJHN PURDY, TAVIA Miller Ot I45.10 UNSPECIFIED RIGHT BUNDLE-BRANCH BLOCK 08/02/2015 JOHN PURDY, TAVIA Miller Ot I51.7 CARDIOMEGALY 08/02/2015 JOHN PURDY, TAVIA Miller Ot R07.2 PRECORDIAL PAIN 09/07/2015 MEADE DO, RON L Ot R06.00 DYSPNEA, UNSPECIFIED 09/07/2015 MEADE DO, RON L Ot Z87.891 PERSONAL HISTORY OF NICOTINE DEPENDENCE 09/09/2015 MEADE DO, RON L Ot R06.00 DYSPNEA, UNSPECIFIED 09/09/2015 MEADE DO, RON L Ot Z87.891 PERSONAL HISTORY OF NICOTINE DEPENDENCE 09/15/2015 CHELLY PURDY, YAW Nuñez Ot N39.41 URGE INCONTINENCE 09/15/2015 CHELLY PURDY, YAW Nuñez Ot Z53.21 PROC/TRTMT NOT CRD OUT D/T PT LV BEF SEE 09/15/2015 CHELLY PURDY, YAW Nuñez Ot Z98.89 OTHER SPECIFIED POSTPROCEDURAL STATES 09/16/2015 YAW SPAULDING MD Ot N39.41 URGE INCONTINENCE 09/16/2015 YAW SPAULDING MD, Ot Z53.21 PROC/TRTMT NOT CRD OUT D/T PT LV BEF SEE 09/16/2015 CHELLY PURDY, YAW Nuñez Ot Z98.89 OTHER SPECIFIED POSTPROCEDURAL STATES 09/17/2015 CAIO PURDY, BASHIR Mauro Ot I10 ESSENTIAL (PRIMARY) HYPERTENSION 09/17/2015 CAIO PURDY, BASHIR Mauro Ot I25.10 ATHSCL HEART DISEASE OF [place] CORONARY 09/17/2015 BASHIR KEARNEY MD Ot R06.02 SHORTNESS OF BREATH 09/17/2015 BASHIR KEARNEY MD Ot R42 DIZZINESS AND GIDDINESS 10/08/2015 DEVORA PURDY, TASIA Nguyen Ot C67.9 MALIGNANT NEOPLASM OF BLADDER, UNSPECIFI 10/08/2015 DEVORA PURDY, TASIA Nguyen Ot C67.9 MALIGNANT NEOPLASM OF BLADDER, UNSPECIFI 10/13/2015 DEVORA PURDY, TASIA Nguyen Ot C67.9 MALIGNANT NEOPLASM OF BLADDER, UNSPECIFI 10/13/2015 BASHIR KEARNEY MD Ot I10 ESSENTIAL (PRIMARY) HYPERTENSION 10/13/2015 CAIO PURDY, BASHIR Mauro Ot I25.10 ATHSCL HEART DISEASE OF [place] CORONARY 10/13/2015 BASHIR KEARNEY MD Ot R06.02 SHORTNESS OF BREATH 10/13/2015 BASHIR KEARNEY MD Ot R42 DIZZINESS AND GIDDINESS 10/22/2015 BASHIR KEARNEY MD Ot I10 ESSENTIAL (PRIMARY) HYPERTENSION 10/22/2015 CAIO PURDY, BASHIR Mauro Ot I25.10 ATHSCL HEART DISEASE OF [place] CORONARY 10/22/2015 BASHIR KEARNEY MD Ot R06.02 SHORTNESS OF BREATH 10/22/2015 BASHIR KEARNEY MD Ot R42 DIZZINESS AND GIDDINESS 11/13/2015 DEVORA PURDY, TASIA Nguyen Ot C67.9 MALIGNANT NEOPLASM OF BLADDER, UNSPECIFI 11/24/2015 DEVORA PURDY, TASIA Nguyen Ot C67.9 MALIGNANT NEOPLASM OF BLADDER, UNSPECIFI 02/11/2016 Ot 401.9 HYPERTENSION NOS 02/11/2016 Ot 414.9 CHR ISCHEMIC HRT DIS NOS 02/11/2016 Ot 786.05 SHORTNESS OF BREATH 02/11/2016 Ot 786.50 CHEST PAIN NOS 02/11/2016 Ot V58.63 LONG-TERM( CURRENT)USE OF ANTIPLATELET/AN 02/11/2016 Ot V58.66 LONG-TERM ( CURRENT) USE OF ASPIRIN 02/11/2016 Ot V58.69 OTH MED,LT, CURRENT USE 02/11/2016 Ot 786.50 CHEST PAIN NOS 02/11/2016 Ot 959.9 INJURY-SITE NOS 02/11/2016 Ot E000.8 OTHER EXTERNAL CAUSE STATUS 02/11/2016 Ot E849.0 ACCIDENT IN HOME 02/11/2016 Ot E928.9 ACCIDENT NOS 02/11/2016 Ot 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, ACQUIRED 02/11/2016 Ot 783.21 LOSS OF WEIGHT 02/11/2016 Ot 562.10 DIVERTICULOSIS COLON (W/O MENT OF HEMORR 02/11/2016 Ot 599.71 GROSS HEMATURIA 02/11/2016 Ot 793.5 NOSP (ABN) FINDINGS ON RADIOLOGICAL OT 02/11/2016 CARLI PURDY, BLAKE Miller Ot 780.4 DIZZINESS AND GIDDINESS 02/11/2016 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 UNDERGROUND ELECTRICIAN Ot 722.52 LUMB/LUMBOSAC DISC DEGEN 02/11/2016 YU PURDY, JAVIER Cannon Ot 600.00 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 02/11/2016 YU PURDY, JAVIER Cannon Ot V72.63 PRE-PROCEDURAL LABORATORY EXAMINATION 02/11/2016 YU PURDY, JAVIER Cannon Ot V72.83 EXAM PRE-OPERATIVE NEC 02/11/2016 YU PURDY, JAVIER Cannon Ot V74.8 SCREEN-BACTERIAL DIS NEC 02/11/2016 ILENE PURDY, ROSARIO Nguyen Ot V72.84 EXAM PRE-OPERATIVE NOS 02/11/2016 ILENE PURDY, ROSARIO Nguyen Ot 569.9 INTESTINAL DISORDER NOS 02/11/2016 ILENE PURDY, ROSARIO Nguyen Ot V72.83 EXAM PRE-OPERATIVE NEC 02/11/2016 ILENE PURDY, ROSARIO Nguyen Ot V74.8 SCREEN-BACTERIAL DIS NEC 02/11/2016 JAVIER NICHOLAS MD Ot 185 MALIGN NEOPL PROSTATE 02/11/2016 JAVIER NICHOLAS MD Ot V72.63 PRE-PROCEDURAL LABORATORY EXAMINATION 02/11/2016 JAVIER NICHOLAS MD Ot V74.8 SCREEN-BACTERIAL DIS NEC 02/11/2016 Ot 331.9 CEREB DEGENERATION NOS 02/11/2016 Ot 728.9 MUSCLE/ LIGAMENT DIS NOS 02/11/2016 YU PURDY, JAVIER Cannon Ot 562.10 DIVERTICULOSIS COLON (W/O MENT OF HEMORR 02/11/2016 YU PURDY, JAVIER Cannon Ot 599.70 HEMATURIA, UNSPECIFIED 02/11/2016 YU PURDY, JAVIER Cannon Ot 721.3 LUMBOSACRAL SPONDYLOSIS 02/11/2016 YU PURDY, JAVIER Cannon Ot 733.90 BONE CARTILAGE DIS NOS 02/11/2016 YU PURDY, JAVIER Cannon Ot 785.6 ENLARGEMENT LYMPH NODES 02/11/2016 YU PURDY, JAVIER Cannon Ot R31.9 HEMATURIA, UNSPECIFIED 02/11/2016 CARLI PURDY, BLAKE Miller Ot M46.06 SPINAL ENTHESOPATHY, LUMBAR REGION 02/11/2016 BLAKE BOYCE MD Ot M46.06 SPINAL ENTHESOPATHY, LUMBAR REGION 02/11/2016 CAIO PURDY, BASHIR Mauro Ot I10 ESSENTIAL (PRIMARY) HYPERTENSION 02/11/2016 CAIO PURDY, BASHIR Mauro Ot I25.10 ATHSCL HEART DISEASE OF [place] CORONARY 02/11/2016 CAIO PURDY, BASHIR Mauro Ot R06.02 SHORTNESS OF BREATH 02/11/2016 CAIO PURDY, BASHIR Mauro Ot R42 DIZZINESS AND GIDDINESS 02/11/2016 DEVORA PURDY, TASIA Nguyen Ot C67.9 MALIGNANT NEOPLASM OF BLADDER, UNSPECIFI 02/11/2016 AMANDA GRISSOM DC Ot M54.5 LOW BACK PAIN 02/12/2016 AMANDA GRISSOM DC Ot M54.5 LOW BACK PAIN 02/17/2016 AMANDA GRISSOM DC Ot M54.5 LOW BACK PAIN 03/04/2016 AMANDA GRISSOM DC Ot M54.5 LOW BACK PAIN 03/15/2016 AMANDA GRISSOM DC Ot M54.5 LOW BACK PAIN 04/07/2016 DEVORA PURDY, TASIA Nguyen Ot C67.9 MALIGNANT NEOPLASM OF BLADDER, UNSPECIFI 04/08/2016 DEVORA PURDY, TASIA Nguyen Ot C67.9 MALIGNANT NEOPLASM OF BLADDER, UNSPECIFI 05/02/2016 DEVORA PURDY, TASIA Nguyen Ot C67.9 MALIGNANT NEOPLASM OF BLADDER, UNSPECIFI 05/19/2016 DEVORA PURDY, TASIA Nguyen Ot C67.9 MALIGNANT NEOPLASM OF BLADDER, UNSPECIFI 06/07/2016 YULIET PETER MD Ot E78.5 HYPERLIPIDEMIA, UNSPECIFIED 06/07/2016 YULIET PETER MD Ot I25.10 ATHSCL HEART DISEASE OF [place] CORONARY 06/07/2016 YULIET PETER MD Ot N28.9 DISORDER OF KIDNEY AND URETER, UNSPECIFI 06/07/2016 YULIET PETER MD Ot R07.9 CHEST PAIN, UNSPECIFIED 06/07/2016 YULIET PETER MD Ot Z79.899 OTHER HALF-WAY (CURRENT) DRUG THERAPY 06/07/2016 YULIET PETER MD Ot Z85.51 PERSONAL HISTORY OF MALIGNANT NEOPLASM O 06/07/2016 YULIET PETER MD Ot Z87.891 PERSONAL HISTORY OF NICOTINE DEPENDENCE 06/07/2016 YULIET PETER MD Ot Z95.1 PRESENCE OF AORTOCORONARY BYPASS GRAFT 06/07/2016 YULIET PETER MD Ot Z95.5 PRESENCE OF CORONARY ANGIOPLASTY IMPLANT 08/20/2016 ASHLY BARAHONA Ot I25.10 ATHSCL HEART DISEASE OF [place] CORONARY 08/20/2016 ASHLY BARAHONA Ot R22.41 LOCALIZED SWELLING, MASS AND LUMP, RIGHT 08/20/2016 ASHLY BARAHONA Ot R60.0 LOCALIZED EDEMA 08/20/2016 ASHLY BARAHONA Ot Z79.82 HALF-WAY (CURRENT) USE OF ASPIRIN 08/20/2016 ASHLY BARAHONA Ot Z79.899 OTHER HALF-WAY (CURRENT) DRUG THERAPY 08/20/2016 ASHLY BARAHONA Ot Z90.6 ACQUIRED ABSENCE OF OTHER PARTS OF URINA 08/20/2016 ASHLY BARAHONA Ot Z98.890 OTHER SPECIFIED POSTPROCEDURAL STATES 08/29/2016 YULIET PETER MD Ot E78.00 PURE HYPERCHOLESTEROLEMIA, UNSPECIFIED 08/29/2016 YULIET PETER MD Ot I25.10 ATHSCL HEART DISEASE OF [place] CORONARY 08/29/2016 YULIET PETER MD Ot 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 INFARCTION 08/29/2016 YULIET PETER MD Ot R42 DIZZINESS AND GIDDINESS 08/29/2016 YULIET PETER MD Ot Z79.82 ENTERTAINMENT & MEDIA CORRESPONDENT (CURRENT) USE OF ASPIRIN 08/29/2016 YULIET PETER MD Ot Z85.46 PERSONAL HISTORY OF MALIGNANT NEOPLASM O 08/29/2016 YULIET PETER MD Ot Z85.51 PERSONAL HISTORY OF MALIGNANT NEOPLASM O 08/29/2016 YULIET PETER MD Ot Z87.891 PERSONAL HISTORY OF NICOTINE DEPENDENCE 08/30/2016 ASHLY BARAHONA Ot I25.10 ATHSCL HEART DISEASE OF [place] CORONARY 08/30/2016 ASHLY BARAHONA Ot R22.41 LOCALIZED SWELLING, MASS AND LUMP, RIGHT 08/30/2016 ASHLY BARAHONA Ot R60.0 LOCALIZED EDEMA 08/30/2016 ASHLY BARAHONA Ot Z79.82 HALF-WAY (CURRENT) USE OF ASPIRIN 08/30/2016 ASHLY BARAHONA Ot Z79.899 OTHER HALF-WAY (CURRENT) DRUG THERAPY 08/30/2016 ASHLY BARAHONA Ot Z90.6 ACQUIRED ABSENCE OF OTHER PARTS OF URINA 08/30/2016 ASHLY BARAHONA Ot Z98.890 OTHER SPECIFIED POSTPROCEDURAL STATES 08/31/2016 YULIET PETER MD Ot E78.00 PURE HYPERCHOLESTEROLEMIA, UNSPECIFIED 08/31/2016 YULIET PETER MD Ot I25.10 ATHSCL HEART DISEASE OF [place] CORONARY 08/31/2016 YULIET PETER MD Ot 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 INFARCTION 08/31/2016 YULIET PETER MD Ot R42 DIZZINESS AND GIDDINESS 08/31/2016 YULIET PETER MD Ot Z79.82 HALF-WAY (CURRENT) USE OF ASPIRIN 08/31/2016 YULIET PETER MD Ot Z85.46 PERSONAL HISTORY OF MALIGNANT NEOPLASM O 08/31/2016 YULIET PETER MD Ot Z85.51 PERSONAL HISTORY OF MALIGNANT NEOPLASM O 08/31/2016 YULIET PETER MD Ot Z87.891 PERSONAL HISTORY OF NICOTINE DEPENDENCE 12/14/2016 BLAKE BOYCE MD Ot E04.1 NONTOXIC SINGLE THYROID NODULE 01/02/2017 BLAKE BOYCE MD Ot E04.1 NONTOXIC SINGLE THYROID NODULE 01/20/2017 BLAKE BOYCE MD Ot E04.1 NONTOXIC SINGLE THYROID NODULE Procedures Code Description Performed By Performed On 17.33 LAPAROSCOPIC RIGHT HEMICOLECTOMY 03/12/2014 38.93 VENOUS CATHETERIZATION NEC 03/12/2014 45.93 [id number] BOWEL NEC 03/12/2014 Results Test Result Range Complete blood count (CBC) with automated white blood cell (WBC) differential - 06/06/16 21:30 Blood leukocytes automated count (number/volume) 6.0 10*3/uL 4.3-11.0 Blood erythrocytes automated count (number/volume) 4.92 10*6/uL 4.35-5.85 Venous blood hemoglobin measurement (mass/volume) 15.5 g/dL 13.3-17.7 Blood hematocrit (volume fraction) 45 % 40-54 Automated erythrocyte mean corpuscular volume 92 [foz_us] 80-99 Automated erythrocyte mean corpuscular hemoglobin (mass per erythrocyte) 32 pg 25-34 Automated erythrocyte mean corpuscular hemoglobin concentration measurement ( mass/volume) 34 g/dL 32-36 Automated erythrocyte distribution width ratio 13.8 % 10.0-14.5 Automated blood platelet count (count/volume) 171 10*3/uL 130-400 Automated blood platelet mean volume measurement 9.2 [foz_us] 7.4-10.4 Automated blood neutrophils/100 leukocytes 69 % 42-75 Automated blood lymphocytes/100 leukocytes 16 % 12-44 Blood monocytes/100 leukocytes 8 % 0-12 Automated blood eosinophils/100 leukocytes 7 % 0-10 Automated blood basophils/100 leukocytes 0 % 0-10 Blood neutrophils automated count (number/volume) 4.1 10*3 1.8-7.8 Blood lymphocytes automated count (number/volume) 1.0 10*3 1.0-4.0 Blood monocytes automated count (number/volume) 0.5 10*3 0.0-1.0 Automated eosinophil count 0.4 10*3/uL 0.0-0.3 Automated blood basophil count (count/volume) 0.0 10*3/uL 0.0-0.1 PT panel in platelet poor plasma by coagulation assay - 06/06/16 21:30 Prothrombin time (PT) in platelet poor plasma by coagulation assay 14.0 s 12.2-14.7 INR in platelet poor plasma or blood by coagulation assay 1.1 0.8-1.4 Activated partial thromboplastin time (aPTT) in platelet poor plasma bycoagulation assay - 06/06/16 21:30 Activated partial thromboplastin time (aPTT) in platelet poor plasma bycoagulation assay 28 s 24-35 Fibrin D-dimer FEU measurement in platelet poor plasma (mass/volume) - 21:30 Fibrin D-dimer FEU measurement in platelet poor plasma (mass/volume) 0.27 ug/mL 0.00-0.49 Comprehensive metabolic panel - 06/06/16 21:30 Serum or plasma sodium measurement (moles/volume) 144 mmol/L 135-145 Serum or plasma potassium measurement (moles/volume) 3.8 mmol/L 3.6-5.0 Serum or plasma chloride measurement (moles/volume) 105 mmol/L 98-107 Carbon dioxide 26 mmol/L 21-32 Serum or plasma anion gap determination (moles/volume) 13 mmol/L 5-14 Serum or plasma urea nitrogen measurement (mass/volume) 19 mg/dL 7-18 Serum or plasma creatinine measurement (mass/volume) 1.37 mg/dL 0.60-1.30 Serum or plasma urea nitrogen/creatinine mass ratio 14 NRG Serum or plasma creatinine measurement with calculation of estimated glomerular filtration rate 50 NRG Serum or plasma glucose measurement (mass/volume) 123 mg/dL 70-105 Serum or plasma calcium measurement (mass/volume) 9.2 mg/dL 8.5-10.1 Serum or plasma total bilirubin measurement (mass/volume) 0.5 mg/dL 0.1-1.0 Serum or plasma alkaline phosphatase measurement (enzymatic activity/volume) 76 U/L 40-136 Serum or plasma aspartate aminotransferase measurement (enzymatic activity/ volume) 33 U/L 5-34 Serum or plasma alanine aminotransferase measurement (enzymatic activity/volume ) 31 U/L 0-55 Serum or plasma protein measurement (mass/volume) 6.7 g/dL 6.4-8.2 Serum or plasma albumin measurement (mass/volume) 4.0 g/dL 3.2-4.5 Magnesium - 06/06/16 21:30 Magnesium 2.2 mg/dL 1.8-2.4 Serum or plasma troponin i.cardiac measurement (mass/volume) - 06/06/16 21:30 Serum or plasma troponin i.cardiac measurement (mass/volume) < ng/ mL <0.30 Myoglobin, serum - 06/06/16 21:30 Myoglobin, serum 323.0 ng/mL 10.0-92.0 Complete blood count (CBC) with automated white blood cell (WBC) differential - 06/07/16 03:28 Blood leukocytes automated count (number/volume) 4.8 10*3/uL 4.3-11.0 Blood erythrocytes automated count (number/volume) 4.55 10*6/uL 4.35-5.85 Venous blood hemoglobin measurement (mass/volume) 14.4 g/dL 13.3-17.7 Blood hematocrit (volume fraction) 42 % 40-54 Automated erythrocyte mean corpuscular volume 93 [foz_us] 80-99 Automated erythrocyte mean corpuscular hemoglobin (mass per erythrocyte) 32 pg 25-34 Automated erythrocyte mean corpuscular hemoglobin concentration measurement ( mass/volume) 34 g/dL 32-36 Automated erythrocyte distribution width ratio 13.7 % 10.0-14.5 Automated blood platelet count (count/volume) 158 10*3/uL 130-400 Automated blood platelet mean volume measurement 9.2 [foz_us] 7.4-10.4 Automated blood neutrophils/100 leukocytes 66 % 42-75 Automated blood lymphocytes/100 leukocytes 14 % 12-44 Blood monocytes/100 leukocytes 10 % 0-12 Automated blood eosinophils/100 leukocytes 10 % 0-10 Automated blood basophils/100 leukocytes 1 % 0-10 Blood neutrophils automated count (number/volume) 3.1 10*3 1.8-7.8 Blood lymphocytes automated count (number/volume) 0.7 10*3 1.0-4.0 Blood monocytes automated count (number/volume) 0.5 10*3 0.0-1.0 Automated eosinophil count 0.5 10*3/uL 0.0-0.3 Automated blood basophil count (count/volume) 0.0 10*3/uL 0.0-0.1 Comprehensive metabolic panel - 06/07/16 03:28 Serum or plasma sodium measurement (moles/volume) 143 mmol/L 135-145 Serum or plasma potassium measurement (moles/volume) 3.6 mmol/L 3.6-5.0 Serum or plasma chloride measurement (moles/volume) 107 mmol/L 98-107 Carbon dioxide 23 mmol/L 21-32 Serum or plasma anion gap determination (moles/volume) 13 mmol/L 5-14 Serum or plasma urea nitrogen measurement (mass/volume) 16 mg/dL 7-18 Serum or plasma creatinine measurement (mass/volume) 1.17 mg/dL 0.60-1.30 Serum or plasma urea nitrogen/creatinine mass ratio 14 NRG Serum or plasma creatinine measurement with calculation of estimated glomerular filtration rate 60 NRG Serum or plasma glucose measurement (mass/volume) 114 mg/dL 70-105 Serum or plasma calcium measurement (mass/volume) 8.7 mg/dL 8.5-10.1 Serum or plasma total bilirubin measurement (mass/volume) 0.5 mg/dL 0.1-1.0 Serum or plasma alkaline phosphatase measurement (enzymatic activity/volume) 67 U/L 40-136 Serum or plasma aspartate aminotransferase measurement (enzymatic activity/ volume) 30 U/L 5-34 Serum or plasma alanine aminotransferase measurement (enzymatic activity/volume ) 28 U/L 0-55 Serum or plasma protein measurement (mass/volume) 6.0 g/dL 6.4-8.2 Serum or plasma albumin measurement (mass/volume) 3.6 g/dL 3.2-4.5 Lipid 1996 panel - 06/07/16 03:28 Serum or plasma triglyceride measurement (mass/volume) 182 mg/dL <150 Serum or plasma cholesterol measurement (mass/volume) 125 mg/dL < 200 Serum or plasma cholesterol in HDL measurement (mass/volume) 29 mg/ dL 40-60 Cholesterol in LDL [mass/volume] in serum or plasma by direct assay 70 mg/dL 1-129 Serum or plasma cholesterol in VLDL measurement (mass/volume) 36 mg/ dL 5-40 Serum or plasma troponin i.cardiac measurement (mass/volume) - 06/07/16 03:28 Serum or plasma troponin i.cardiac measurement (mass/volume) < ng/ mL <0.30 Complete blood count (CBC) with automated white blood cell (WBC) differential - 08/29/16 14:18 Blood leukocytes automated count (number/volume) 4.6 10*3/uL 4.3-11.0 Blood erythrocytes automated count (number/volume) 3.79 10*6/uL 4.35-5.85 Venous blood hemoglobin measurement (mass/volume) 11.2 g/dL 13.3-17.7 Blood hematocrit (volume fraction) 35 % 40-54 Automated erythrocyte mean corpuscular volume 92 [foz_us] 80-99 Automated erythrocyte mean corpuscular hemoglobin (mass per erythrocyte) 30 pg 25-34 Automated erythrocyte mean corpuscular hemoglobin concentration measurement ( mass/volume) 32 g/dL 32-36 Automated erythrocyte distribution width ratio 16.0 % 10.0-14.5 Automated blood platelet count (count/volume) 339 10*3/uL 130-400 Automated blood platelet mean volume measurement 8.4 [foz_us] 7.4-10.4 Automated blood neutrophils/100 leukocytes 75 % 42-75 Automated blood lymphocytes/100 leukocytes 10 % 12-44 Blood monocytes/100 leukocytes 11 % 0-12 Automated blood eosinophils/100 leukocytes 4 % 0-10 Automated blood basophils/100 leukocytes 0 % 0-10 Blood neutrophils automated count (number/volume) 3.5 10*3 1.8-7.8 Blood lymphocytes automated count (number/volume) 0.5 10*3 1.0-4.0 Blood monocytes automated count (number/volume) 0.5 10*3 0.0-1.0 Automated eosinophil count 0.2 10*3/uL 0.0-0.3 Automated blood basophil count (count/volume) 0.0 10*3/uL 0.0-0.1 Comprehensive metabolic panel - 08/29/16 14:18 Serum or plasma sodium measurement (moles/volume) 138 mmol/L 135-145 Serum or plasma potassium measurement (moles/volume) 3.7 mmol/L 3.6-5.0 Serum or plasma chloride measurement (moles/volume) 104 mmol/L 98-107 Carbon dioxide 24 mmol/L 21-32 Serum or plasma anion gap determination (moles/volume) 10 mmol/L 5-14 Serum or plasma urea nitrogen measurement (mass/volume) 9 mg/dL 7-18 Serum or plasma creatinine measurement (mass/volume) 1.32 mg/dL 0.60-1.30 Serum or plasma urea nitrogen/creatinine mass ratio 7 NRG Serum or plasma creatinine measurement with calculation of estimated glomerular filtration rate 52 NRG Serum or plasma glucose measurement (mass/volume) 90 mg/dL 70-105 Serum or plasma calcium measurement (mass/volume) 8.9 mg/dL 8.5-10.1 Serum or plasma total bilirubin measurement (mass/volume) 0.2 mg/dL 0.1-1.0 Serum or plasma alkaline phosphatase measurement (enzymatic activity/volume) 41 U/L 40-136 Serum or plasma aspartate aminotransferase measurement (enzymatic activity/ volume) 21 U/L 5-34 Serum or plasma alanine aminotransferase measurement (enzymatic activity/volume ) 14 U/L 0-55 Serum or plasma protein measurement (mass/volume) 5.9 g/dL 6.4-8.2 Serum or plasma albumin measurement (mass/volume) 3.2 g/dL 3.2-4.5 Encounters ACCT No. Visit Date/Time Discharge Status Pt. Type Provider Facility Loc./Unit Complaint [id number] 12/08/2016 09:08:00 12/08/2016 23:59:59 CLS Outpatient CARLI PURDY, BLAKE Miller [facility] RAD LOCALIZED SWELLING MASS AND LUMP R22.1 [id number] 08/29/2016 12:43:00 08/29/2016 15:40:00 DIS Emergency YULIET PETER MD [facility] ER DIZZINESS [id number] 08/20/2016 09:50:00 08/20/2016 13:23:00 DIS Emergency ASHLY BARAHONA [facility] ER SWELLING IN R ANKLE [id number] 06/07/2016 00:30:00 06/07/2016 13:09:00 DIS Inpatient YULIET PETER MD [facility] 4TH CHEST PAIN, H/O CAD [id number] 04/07/2016 07:49:00 04/07/2016 23:59:59 CLS Outpatient TASIA LOZOYA MD [facility] RAD MALIGNANT NEOPLASM OF URINARY BLADDER [id number] 04/06/2016 11:53:00 04/06/2016 23:59:59 CLS Outpatient TASIA LOZOYA MD [facility] RAD MALIGNANT NEOPLASM OF URINARY BLADDER [id number] 02/11/2016 13:35:00 02/11/2016 23:59:59 CLS Outpatient AMANDA GRISSOM DC [facility] RAD LOW BACK PAIN [id number] 10/07/2015 09:54:00 10/07/2015 23:59:59 CLS Outpatient TASIA LOZOYA MD [facility] RAD MALIGNANT NEOPLASM OF URINARY BLADDER [id number] 09/16/2015 09:27:00 09/16/2015 23:59:59 CLS Outpatient BASHIR KEARNEY MD [facility] CARD DIZZINESS, ESSENTIAL HTN , SOB, [id number] 09/15/2015 21:13:00 09/15/2015 22:22:00 DIS Emergency YAW SPAULDING MD [facility] ER PAIN WHILE URINATING/ BLOOD IN URINE [id number] 09/07/2015 15:30:00 09/07/2015 16:58:00 DIS Emergency RON MEADE DO [facility] ER SHORTNESS OF BREATHE [id number] 07/31/2015 11:32:00 07/31/2015 13:31:00 DIS Emergency TAVIA LOPEZ MD [facility] ER CHEST PAIN [id number] 07/21/2015 13:00:00 07/21/2015 16:52:00 DIS Outpatient BLAKE BOYCE MD [facility] REHAB LOW BACK PAIN [id number] 07/06/2015 07:40:00 07/06/2015 11:30:00 DIS Outpatient ROSARIO ODOM MD [facility] SDC HISTORY OF POLYPS [id number] 07/02/2015 05:37:00 07/02/2015 16:39:00 DIS Outpatient ROSARIO ODOM MD [facility] PREOP HISTORY OF POLYPS [id number] 06/19/2015 09:54:00 06/19/2015 23:59:59 CLS Outpatient BLAKE BOYCE MD [facility] RAD SPINAL ENTHESOPATHY LUMBAR [id number] 06/16/2015 09:15:00 06/16/2015 23:59:59 CLS Outpatient BLAKE BOYCE MD [facility] RAD SPINAL ENTHESOPATHY [id number] 02/11/2015 10:53:00 02/11/2015 23:59:59 CLS Outpatient JAVIER NICHOLAS MD [facility] RAD HEMATURIA [id number] 11/28/2014 12:49:00 11/28/2014 14:00:00 DIS Emergency ARBOLEDA LOUISA Wanda TALAMANTES [facility] ER LEFT HAND/ARM LACERATION [id number] 08/28/2014 18:28:00 08/29/2014 09:45:00 DIS Inpatient BLAKE BOYCE MD [facility] CSD CHEST PAIN [id number] 08/11/2014 08:25:00 08/11/2014 23:59:59 CLS Outpatient JAVIER NICHOLAS MD [facility] RAD HEMATURIA [id number] 04/03/2014 21:45:00 04/04/2014 12:15:00 DIS Inpatient JAVIER NICHOLAS MD [facility] SURGICAL URINARY RETENTION; UTI;HEMATURIA [id number] 04/01/2014 08:44:00 04/01/2014 16:45:00 DIS Outpatient JAVIER NICHOLAS MD [facility] CANCER OF PROSTATE [id number] 03/25/2014 08:32:00 03/25/2014 23:59:59 CLS Outpatient JAVIER NICHOLAS MD [facility] PREOP CANCER OF PROSTATE [id number] 03/12/2014 10:00:00 03/17/2014 12:30:00 DIS Inpatient ROSARIO ODOM MD [facility] SURGICAL LARGE COLON MASS, SESSILE POLYP CECUM [id number] 03/11/2014 08:13:00 03/11/2014 23:59:59 CLS Outpatient ROSARIO ODOM MD [facility] PREOP LARGE COLON MASS [id number] 03/10/2014 08:45:00 03/10/2014 12:10:00 DIS Outpatient ROSARIO ODOM MD [facility] HEMOCCULT STOOLS [id number] 03/05/2014 06:09:00 03/05/2014 23:59:59 CLS Outpatient ROSARIO ODOM MD [facility] PREOP HEMOCULT STOOLS [id number] 02/12/2014 16:29:00 02/12/2014 18:50:00 DIS Emergency LOUISA ARBOLEDA UNDERGROUND ELECTRICIAN [facility] ER CATHETER LEAKING;PAIN [id number] 02/10/2014 06:00:00 02/11/2014 13:35:00 DIS Outpatient JAVIER NICHOLAS MD [facility] SDC BPH [id number] 02/06/2014 22:10:00 02/07/2014 13:40:00 DIS Inpatient BLAKE BOYCE MD [facility] CSD CHEST PAIN [id number] 02/04/2014 10:00:00 02/04/2014 23:59:59 CLS Outpatient JAVIER NICHOLAS MD [facility] PREOP BPH [id number] 01/06/2014 11:38:00 01/06/2014 11:57:00 DIS Emergency TAVIA LOPEZ MD [facility] ER STITCH REMOVAL [id number] 12/30/2013 10:32:00 12/30/2013 11:14:00 DIS Emergency TAVIA LOPEZ MD [facility] ER LEFT THUMB LAC [id number] 11/21/2013 11:54:00 11/21/2013 23:59:59 CLS Outpatient 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 APRN [facility] RAD LUMBAGO [id number] 09/20/2013 18:08:00 09/20/2013 18:58:00 DIS Emergency ASHLY BARAHONA [facility] ER L HAND PINKY LAC [id number] 04/11/2013 08:44:00 04/11/2013 23:59:59 CLS Outpatient BLAKE BOYCE MD [facility] RAD DIZZINESS,HEADACHE [id number] 05/15/2014 08:38:00 Document Registration [id number] 02/10/2012 15:51:00 Document Registration [id number] 01/19/2012 08:42:00 Document Registration [id number] 12/08/2011 09:01:00 Document Registration [id number] 11/24/2011 13:06:00 Document Registration [id number] 10/04/2011 12:41:00 Document Registration [id number] 05/22/2011 08:10:00 Document Registration [id number] 04/06/2011 15:51:00 Document Registration [id number] 02/09/2011 12:06:00 Document Registration [id number] 01/28/2011 11:26:00 Document Registration [id number] 11/01/2010 20:04:00 Document Registration [id number] 09/10/2010 12:10:00 Document Registration [id number] 08/06/2010 09:23:00 Document Registration [id number] 07/31/2010 10:50:00 Document Registration [id number] 07/08/2010 07:23:00 Document Registration [id number] 12/25/2009 07:47:00 Document Registration [id number] 11/06/2009 09:13:00 Document Registration [id number] 09/21/2009 14:38:00 Document Registration [id number] 07/16/2009 07:03:00 Document Registration [id number] 06/30/2009 10:19:00 Document Registration [id number] 03/31/2009 14:19:00 Document Registration [id number] 09/08/2008 15:12:00 Document Registration
--- NOTE | 2017-04-02 18:43 | ED EENT ---
History of Present Illness General Chief Complaint: Eye Problems Stated Complaint: BLOOD CLOT IN R EYE Nursing Triage Note: pt states that he was eating and pt felt he had a "hair in his eye". Then family noticed that his eye was red and seemed to have a blood clot in the eye. Pt did state that he had cataract surgery 4 or 5 weeks ago. Source: patient Exam Limitations: no limitations History of Present Illness Time seen by provider: 18:39 Initial Comments To ER with reports of "blood clot in right eye". Patient was sitting down for dinner table to eat when he felt as though something was in his eye. Family looked and noticed a clot. Patient takes one aspirin twice a week. No other blood thinners. No straining or trauma or coughing that he can recall. No pain in the eye. He did have cataract surgery by Dr. Triana e merchant in [place] about 3-4 months ago. His local actuarial internship is Dr. Potter. Timing/Duration: abrupt Severity: moderate Location: eye (R) Associated Symptoms: denies symptoms Allergies and Home Medications Allergies Coded Allergies: NKANo Known Allergies (Verified Allergy, Mild, 11/24/11) Uncoded Allergies: BEE STINGS (Allergy, Severe, SOA/HIVES, 11/01/10) Home Medications Aspirin 81 Mg Tablet., 81 MG PO [place], (Reported) Calcium Carbonate/Vitamin D3 1 Each Tablet, 1 TAB PO BID, (Reported) Cyclobenzaprine HCl 10 Mg Tablet, 10 MG PO BID PRN for MUSCLE SPASMS, (Reported) Diltiazem HCl 90 Mg Tablet, 45 MG PO HS, (Reported) TAKES 1/2 OF A (90 MG) TABLET / TAKES FOR LEG CRAMPS Diphenhydramine HCl 25 Mg Capsule, 25 MG PO BID, (Reported) Docusate Sodium 100 Mg Capsule, 100 MG PO DAILY, (Reported) Docusate Sodium 100 Mg Capsule, 200 MG PO HS, (Reported) TAKES 2 (100 MG) CAPSULES Furosemide 40 Mg Tablet, 40 MG PO DAILY PRN for PITTING EDEMA, (Reported) Gemfibrozil 600 Mg Tablet, 600 MG PO DAILY, (Reported) Hydrocodone Bit/Acetaminophen 1 Each Tablet, 1 TAB PO EVERY 4-6 HOURS PRN for PAIN, (Reported) Levothyroxine Sodium 50 Mcg Tablet, 50 MCG PO DAILY, (Reported) Mirabegron 50 Mg Tab.er.24h, 50 MG PO DAILY@1200, (Reported) Multivitamin 1 Each Tablet, 1 TAB PO DAILY, (Reported) Nitroglycerin 0.4 Mg Tab.subl, 0.4 MG SL UD PRN for CHEST PAIN, (Reported) 1 TAB EVERY 5 MINUTES UP TO 3 DOSES WITHIN 15 MINUTES; CALL 911 IF NO RELIEF Nitroglycerin 0.4 Mg Tab.subl, 0.4 MG SL when necessary, #30 Prescribed by: YULIET PETER on 06/07/16 1159 [place] 3 Polyunsat Fatty Acids 1,000 Mg Cap, 2,000 MG PO DAILY, (Reported) Potassium Gluconate 90 Mg Tablet, 90 MG PO UD, (Reported) ONLY TAKES WITH FUROSEMIDE Pramipexole Di-HCl 0.25 Mg Tablet, 0.25 MG PO DAILY, (Reported) Pramipexole Di-HCl 0.25 Mg Tablet, 0.5 MG PO HS, (Reported) TAKES 2 (0.25 MG) TABLETS Rosuvastatin Calcium 20 Mg Tablet, 20 MG PO HS, (Reported) Solifenacin Succinate 5 Mg Tablet, 5 MG PO DAILY@1200, (Reported) Tamsulosin HCl 0.4 Mg Cap.er.24h, 0.4 MG PO HS, (Reported) Trazodone HCl 150 Mg Tablet, 150 MG PO HS PRN for SLEEP, (Reported) [Antivert] , 25 MG 4 times a day PRN for Dizziness, #30 Prescribed by: YULIET PETER on 08/29/16 1500 [Prevagen] , 1 TAB PO DAILY, (Reported) Review of Systems Constitutional: see HPI Eyes: See HPI Ears: No Symptoms Reported Nose: no symptoms reported Mouth: no symptoms reported Throat: no symptoms reported Respiratory: no symptoms reported Cardiovascular: no symptoms reported Past Upxgodv-Xcboca-Qamgxw Hx Patient Social History Alcohol Use: Denies Use Recreational Drug Use: No Smoking Status: Former Smoker Former Smoker, Quit: Jun 07, 1974 2nd Hand Smoke Exposure: No Recent Foreign Travel: No Contact w/Someone Who Travel: No Recent Infectious Disease Expo: No Recent Hopitalizations: No Physical Abuse: No Sexual Abuse: No Mistreated: No Fear: No Immunizations Up To Date Tetanus Booster (TDap): Unknown Date of Pneumonia Vaccine: Feb 03, 2015 Date of Influenza Vaccine: Jan 13, 2016 Seasonal Allergies Seasonal Allergies: Yes Surgeries History of Surgeries: Yes (LEFT WRIST, LEFT KNEE SCOPE, TOTAL LEFT KNEE, HEMORRHOIDS,TURP ) Surgeries: Joint Replacement Respiratory History of Respiratory Disorde: No Currently Using CPAP: No Currently Using BIPAP: No Cardiovascular History of Cardiac Disorders: Yes (STENTS X5) Cardiac Disorders: Coronary Artery Disease, Heart Attack, High Cholesterol Neurological History of Neurological Disord: No Reproductive System Hx Reproductive Disorders: No Sexually Transmitted Disease: No HIV/AIDS: No Genitourinary Genitourinary Disorders: Prostate Problems Gastrointestinal History of Gastrointestinal Di: No Musculoskeletal History of Musculoskeletal Dis: Yes Musculoskeletal Disorders: Arthritis Endocrine History of Endocrine Disorders: No HEENT Hearing Impairment: Denies, Hearing Aide Right, Hearing Aide Left Cancer History of Cancer: Yes (NOSE) Cancer: Bladder, Prostate Psychosocial History of Psychiatric Problem: No Suicide Risk Score: 0 Integumentary History of Skin or Integumenta: No Blood Transfusions History of Blood Disorders: No Adverse Reaction to a Blood Tr: No Family Medical History Significant Family History: No Pertinent Family Hx Family Medial History: Arthritis 19 FATHER 19 MOTHER Diabetes mellitus 19 FATHER Myocardial infarction 19 FATHER 19 MOTHER Respiratory disorder G8 SISTER No Family History of: AIDS [place]'s disease Alcoholism Alzheimer's disease Cancer of mouth Colon cancer Completed stroke Dementia Kidney disease Parkinson's disease Prostate cancer Psychosocial problem Seizure disorder Severe allergy Thyroid disease Tuberculosis Physical Exam Vital Signs Vital Sign - Last 12Hours 04/02/17 18:29 Temp 98.0 Pulse 84 Resp 20 B/P (MAP) 156/71 (99) O2 Delivery Room Air General Appearance: WD/WN, no apparent distress Eyes: right eye other (to the right eye there is a large subconjunctival hemorrhage to the medial and inferior aspect of the eye. There is no hyphema. Visual acuity is 20/30 in the right eye and actually a bit worse in the left eye 20/40. Pupils are equal and reactive.), left eye normal inspection, left eye PERRL, left eye EOMI Ears: bilateral ear auricle normal, bilateral ear canal normal, bilateral ear TM normal Neck: non-tender, full range of motion Cardiovascular: regular rate, rhythm, no murmur Neurologic/Psychiatric: alert, normal mood/affect, oriented x 3 Skin: normal color, warm/dry Laceration Repair : Suture Size: 4-0 Progress/Results/Core Measures Results/Orders Vital Signs/I&O Vital Sign - Last 12Hours 04/02/17 18:29 Temp 98.0 Pulse 84 Resp 20 B/P (MAP) 156/71 (99) O2 Delivery Room Air Blood Pressure Mean: 99 Departure Communication (PCP) 1850-Spoke with Dr Garcia, Recommends rewetting drops qid during day, rewetting gel at HS x1 week. Impression Impression: Primary Impression: Subconjunctival hemorrhage Additional Impression: bullous elevation of conjunctiva Disposition: HOME, SELF-CARE Condition: Stable Departure-Patient Inst. Decision time for Depature: 18:42 Referrals: BLAKE BOYCE MD (PCP/Family) Primary Care Physician Patient Instructions: Subconjunctival Hemorrhage Add. Discharge Instructions: Return to ER promptly for any vision changes or pain in the eye. Otherwise do not be alarmed by this, follow-up with Dr. Potter this week calling him tomorrow to see if you could see him any sooner than Monday. Do not rub or scratch the eye. Use a visene rewetting drops 4 times daily for the next week. If you can find a rewetting GEL this would work to use at bedtime, again at 1 week. All discharge instructions reviewed with patient and/or family. Voiced understanding. LOUISA ARBOLEDA APRN Apr 02, 2017 18:43
[2017-04-02 19:08] VITALS: BP 156/71
== END 2017-04-02 19:08 | disposition home or self-care (01) ==
LOC: EDUNIT# 18:21 → ER 18:23
DX: H11.31 Conjunctival hemorrhage, right eye (principal); H11.89 Other specified disorders of conjunctiva; I25.10 Atherosclerotic heart disease of native coronary artery without angina pectoris; I25.2 Old myocardial infarction; E78.00 Pure hypercholesterolemia, unspecified; Z85.46 Personal history of malignant neoplasm of prostate; Z82.49 Family history of ischemic heart disease and other diseases of the circulatory system; Z85.51 Personal history of malignant neoplasm of bladder; Z79.82 Long term (current) use of aspirin; Z87.891 Personal history of nicotine dependence; Z96.652 Presence of left artificial knee joint; Z87.19 Personal history of other diseases of the digestive system
CPT/HCPCS: 99282

== ENCOUNTER 2017-05-02 12:58 | Emergency (ER) | payer MEDICARE ==
[~2017-05-02] VITALS: Ht 172.7 cm; Wt 90.7 kg
[~2017-05-02 12:58] MED LIST changes: -ROSU20TA28 PO; +ROSU20TA30 PO
[2017-05-02] MEDS ORDERED: RT-ALBUTEROL/IPRATROPIUM 3 ML (DUONEB) VIAL INH ONE (13:15)
[2017-05-02] MEDS ORDERED: OSLT75C PO (13:54)
--- NOTE | 2017-05-02 13:55 | ED Cough/URI ---
General Chief Complaint: Cough/Cold/Flu Symptoms Stated Complaint: FLU LIKE SYMPTOMS Nursing Triage Note: AMB TO ED WITH COUGH CONGESTION BODY ACHES FOR 2 DAYS . POS FOR FLU END OFMAR Source: patient Exam Limitations: no limitations History of Present Illness Date Seen by Provider: May 02, 2017 Time Seen by Provider: 13:51 Initial Comments 81-year-old male patient presents to the emergency department with complaints of cough, congestion, body aches, sneezing, rhinorrhea for 2 days. was positive for flu a at the end of March. Granddaughter tested positive for flu B at the end of last week. Patient was exposed to the granddaughter prior to the diagnosis. Timing/Duration: getting worse, other (2 day onset) Severity/Quality: productive cough (clear productive cough) Prior Episodes/Possible Cause: no prior episodes Modifying Factors: Worse With Coughing Allergies and Home Medications Allergies Coded Allergies: NKANo Known Allergies (Verified Allergy, Mild, 11/24/11) Uncoded Allergies: BEE STINGS (Allergy, Severe, SOA/HIVES, 11/01/10) Home Medications Aspirin 81 Mg Tablet.dr, 81 MG PO TuSa, (Reported) Calcium Carbonate/Vitamin D3 1 Each Tablet, 1 TAB PO BID, (Reported) Cyclobenzaprine HCl 10 Mg Tablet, 10 MG PO BID PRN for MUSCLE SPASMS, (Reported) Diltiazem HCl 90 Mg Tablet, 45 MG PO HS, (Reported) TAKES 1/2 OF A (90 MG) TABLET / TAKES FOR LEG CRAMPS Diphenhydramine HCl 25 Mg Capsule, 25 MG PO BID, (Reported) Docusate Sodium 100 Mg Capsule, 100 MG PO DAILY, (Reported) Docusate Sodium 100 Mg Capsule, 200 MG PO HS, (Reported) TAKES 2 (100 MG) CAPSULES Furosemide 40 Mg Tablet, 40 MG PO DAILY PRN for PITTING EDEMA, (Reported) Gemfibrozil 600 Mg Tablet, 600 MG PO DAILY, (Reported) Hydrocodone Bit/Acetaminophen 1 Each Tablet, 1 TAB PO EVERY 4-6 HOURS PRN for PAIN, (Reported) Levothyroxine Sodium 50 Mcg Tablet, 50 MCG PO DAILY, (Reported) Mirabegron 50 Mg Tab.er.24h, 50 MG PO DAILY@1200, (Reported) Multivitamin 1 Each Tablet, 1 TAB PO DAILY, (Reported) Nitroglycerin 0.4 Mg Tab.subl, 0.4 MG SL UD PRN for CHEST PAIN, (Reported) 1 TAB EVERY 5 MINUTES UP TO 3 DOSES WITHIN 15 MINUTES; CALL 911 IF NO RELIEF Nitroglycerin 0.4 Mg Tab.subl, 0.4 MG SL when necessary, #30 Prescribed by: YULIET PETER on 06/07/16 1159 [place] 3 Polyunsat Fatty Acids 1,000 Mg Cap, 2,000 MG PO DAILY, (Reported) Oseltamivir Phosphate 75 Mg Cap, 75 MG PO BID, #10 Ref 0 Prescribed by: ASHLY VASQUEZ on 05/02/17 1354 Potassium Gluconate 90 Mg Tablet, 90 MG PO UD, (Reported) ONLY TAKES WITH FUROSEMIDE Pramipexole Di-HCl 0.25 Mg Tablet, 0.25 MG PO DAILY, (Reported) Pramipexole Di-HCl 0.25 Mg Tablet, 0.5 MG PO HS, (Reported) TAKES 2 (0.25 MG) TABLETS Rosuvastatin Calcium 20 Mg Tablet, 20 MG PO HS, (Reported) Solifenacin Succinate 5 Mg Tablet, 5 MG PO DAILY@1200, (Reported) Tamsulosin HCl 0.4 Mg Cap.er.24h, 0.4 MG PO HS, (Reported) Trazodone HCl 150 Mg Tablet, 150 MG PO HS PRN for SLEEP, (Reported) [Antivert] , 25 MG 4 times a day PRN for Dizziness, #30 Prescribed by: YULIET PETER on 08/29/16 1500 [Prevagen] , 1 TAB PO DAILY, (Reported) Constitutional: see HPI, chills, fever, malaise EENTM: see HPI, nose congestion, throat pain, No ear discharge, No ear pain, No hoarseness Respiratory: see HPI, cough, No dyspnea on exertion, phlegm, No short of breath , No stridor, wheezing Cardiovascular: no symptoms reported Gastrointestinal: no symptoms reported Genitourinary: no symptoms reported Musculoskeletal: other (generalized body aches) Skin: no symptoms reported Psychiatric/Neurological: No Symptoms Reported All Other Systems Reviewed Negative Unless Noted: Yes (Negative excepted noted.) Past Mcfbpvn-Wbcswl-Epvvfo Hx Patient Social History Alcohol Use: Denies Use Recreational Drug Use: No Smoking Status: Never a Smoker Former Smoker, Quit: Jun 07, 1974 2nd Hand Smoke Exposure: No Recent Foreign Travel: No Contact w/Someone Who Travel: No Recent Infectious Disease Expo: No Recent Hopitalizations: No Immunizations Up To Date Tetanus Booster (TDap): Unknown Date of Pneumonia Vaccine: Feb 03, 2015 Date of Influenza Vaccine: Jan 13, 2016 Seasonal Allergies Seasonal Allergies: Yes Surgeries History of Surgeries: Yes (LEFT WRIST, LEFT KNEE SCOPE, TOTAL LEFT KNEE, HEMORRHOIDS,TURP ) Surgeries: Joint Replacement Respiratory History of Respiratory Disorde: No Currently Using CPAP: No Currently Using BIPAP: No Cardiovascular History of Cardiac Disorders: Yes (STENTS X5) Cardiac Disorders: Coronary Artery Disease, Heart Attack, High Cholesterol Neurological History of Neurological Disord: No Reproductive System Hx Reproductive Disorders: No Sexually Transmitted Disease: No HIV/AIDS: No Genitourinary Genitourinary Disorders: Prostate Problems Gastrointestinal History of Gastrointestinal Di: No Musculoskeletal History of Musculoskeletal Dis: Yes Musculoskeletal Disorders: Arthritis Endocrine History of Endocrine Disorders: No HEENT Hearing Impairment: Denies, Hearing Aide Right, Hearing Aide Left Cancer History of Cancer: Yes (NOSE) Cancer: Bladder, Prostate Psychosocial History of Psychiatric Problem: No Integumentary History of Skin or Integumenta: No Blood Transfusions History of Blood Disorders: No Adverse Reaction to a Blood Tr: No Reviewed Nursing Assessment Reviewed/Agree w Nursing PMH: Yes Family Medical History Significant Family History: No Pertinent Family Hx Family Medial History: Arthritis 19 FATHER 19 MOTHER Diabetes mellitus 19 FATHER Myocardial infarction 19 FATHER 19 MOTHER Respiratory disorder G8 SISTER No Family History of: AIDS [place]'s disease Alcoholism Alzheimer's disease Cancer of mouth Colon cancer Completed stroke Dementia Kidney disease Parkinson's disease Prostate cancer Psychosocial problem Seizure disorder Severe allergy Thyroid disease Tuberculosis Physical Exam Vital Signs Vital Signs - First Documented 05/02/17 05/02/17 13:10 13:29 Temp 97.4 Pulse 74 Resp 18 B/P (MAP) 130/60 (83) Pulse Ox 97 O2 Delivery Room Air Capillary Refill : Less Than 3 Seconds General Appearance: WD/WN, no apparent distress HEENT: PERRL/EOMI, TMs normal, pharyngeal erythema, No tonsillar exudate, other (positive nasal congestion and rhinorrhea) Neck: non-tender, full range of motion, supple, normal inspection Respiratory: no respiratory distress, no accessory muscle use, wheezing, expiration Cardiovascular: normal peripheral pulses, regular rate, rhythm, no edema, no murmur Gastrointestinal: normal bowel sounds, non tender, soft, no organomegaly, No distended Extremities: no pedal edema, no calf tenderness, normal capillary refill Neurologic/Psychiatric: alert, normal mood/affect, oriented x 3 Skin: normal color, warm/dry Laceration Repair : Suture Size: 4-0 Progress/Results/Core Measures Suspected Sepsis Recent Fever Within 48 Hours: No Infection Criteria Present: None New/Unexplained Altered Menta: No Sepsis Screen: No Definite Risk Sepsis Diagnosis: SIRS Temperature:97.4 Pulse: 74 Respiratory Rate: 18 Blood Pressure 130 /60 Mean: 83 Results/Orders Micro Results Microbiology 05/02/17 Influenza Types A,B Antigen (ROSELYN) - Final, Complete My Orders Orders - ASHLY VASQUEZ Influenza A And B Antigens (05/02/17 13:14) Albuterol/Ipra Inhalation Soln (Duoneb I (05/02/17 13:15) Svn Sm Volume Nebulizer Rt-Rfs (05/02/17 13:14) Medications Given in ED Current Medications Medications Dose Ordered Sig/Fahad Route Start Time Stop Time Status Last Admin Dose Admin Albuterol/ Ipratropium 3 ml ONCE ONCE INH 05/02/17 13:15 05/02/17 13:16 DC 05/02/17 13:29 3 ML Vital Signs/I&O Vital Sign - Last 12Hours 05/02/17 05/02/17 05/02/17 13:10 13:29 14:10 Temp 97.4 97.4 Pulse 74 74 Resp 18 18 B/P (MAP) 130/60 (83) Pulse Ox 97 97 O2 Delivery Room Air Room Air Capillary Refill : Less Than 3 Seconds Blood Pressure Mean: 83 Departure Communication (Admissions) Progress Notes Laboratory findings discussed with the patient. Patient shows improved breath sounds bilaterally. Plan for discharge to home. Patient given a prescription for Tamiflu. Impression Impression: Primary Impression: Influenza-like symptoms Additional Impression: influenza B exposure Disposition: HOME, SELF-CARE Condition: Improved Departure-Patient Inst. Decision time for Depature: 13:51 Referrals: BLAKE BOYCE MD (PCP/Family) Primary Care Physician Patient Instructions: Flu, Adult (DC) Add. Discharge Instructions: All discharge instructions reviewed with patient and/or family. Voiced understanding. Medications as instructed. Tylenol extra strength over-the- counter as directed by remaining fracture for headache, fever, or pain. Ibuprofen 800 mg by mouth every 8 hours as needed for pain, fever, or body aches. Drink plenty of fluids. Cool humidifier. Saline nasal spray and Afrin nasal spray [id number] as needed for symptoms. Coricidin or Mucinex over- the-counter as needed for congestion. Follow-up with your family practitioner if no improvement in symptoms. Return in the emergency department for worsened symptoms or any other concerns. Scripts Oseltamivir Phosphate (Tamiflu) 75 Mg Cap 75 MG PO BID, #10 CAP 0 Refills Prov: ASHLY VASQUEZ 05/02/17 ASHLY VASQUEZ May 02, 2017 13:55
[2017-05-02 14:10] VITALS: BP 130/60
--- OUTSIDE RECORDS SUMMARY | 2017-05-03 09:05 | XMS REPORT | Encounter Summary ---
Author Author [facility] Organization [facility] Address Unknown Phone Unavailable Care Team Providers Care Merchandise Flow Team Leader Name Role Phone Cory Amaro MD Unavailable Min Lindsey MD PCP Karen Aguirre RN Unavailable Unavailable Alfredo Everett MD Unavailable Unavailable Jazmine Germain RN Unavailable Unavailable Kit Tian MD Unavailable Dinorah Khan RN Unavailable Unavailable Encounter Details Date Type Department Care Team Description 03/31/2017 [facility] Cory Amaro, Malignant neoplasm of Encounter [address] bladder, [place] [address] (HCC) [place] [address] [place] [address] [phone] Social History Tobacco Use Types Packs/Day Years [...] impairment: No 08/17/2016 as of this encounter Medications at Time of Discharge Medication Sig. Disp. Refills Start Date End Date acetaminophen (TYLENOL) Take 2 Tabs by mouth 0 08/17/2016 325 mg tablet every 6 hours as needed. aspirin EC 81 mg tablet Take 1 Tab by mouth twice 90 Tab 3 09/17/2015 weekly. Monday and Monday Wait 5 days before resuming your aspirin calcium carbonate/vitamin Take 1 Tab by mouth twice D-3 (OSCAL-500+D) 1250 daily with meals. Calcium mg/200 unit tablet Carb 1250mg delivers 500mg elemental Ca diltiazem (CARDIZEM) 90 Take 45 mg by mouth at mg tabletIndications: Leg bedtime daily. cramps Indications: Leg cramps docusate (COLACE) 100 mg Take 100 mg by mouth capsule daily. fish oil /omega-3 fatty Take 1 Cap by mouth twice acids (SEA-OMEGA) daily. 340/1000 mg capsule gemfibrozil (LOPID) 600 Take 600 mg by mouth mg tablet daily. levothyroxine (SYNTHROID) Take 50 mcg by mouth 50 mcg tablet daily. magnesium oxide (MAG-OX) Take 400 mg by mouth at 400 mg tabletIndications: bedtime daily. Leg Cramps Indications: Leg Cramps meclizine (ANTIVERT) 12.5 Take 12.5 mg by mouth mg tablet three times daily as needed. milk of magnesia (CONC) Take 10 mL by mouth twice 360 mL 1 08/17/2016 2,400 mg/10 mL oral daily as needed. suspensionIndications: Indications: CONSTIPATION constipation omeprazole DR(+) Take 40 mg by mouth daily (PRILOSEC) 40 mg capsule as needed. ondansetron (ZOFRAN) 4 mg Take 4 mg by mouth every tablet 8 hours as needed for Nausea or Vomiting. Ostomy Supplies misc Use 10 Units as directed 10 Each 99 08/17/2016 as Needed (Every 4 days and as needed). Ostomy supplies and accessories. One month supply. other medication Take 1 Dose by mouth daily. Prevagen pramipexole (MIRAPEX) Take by mouth twice 0.25 mg tablet daily. 1 tablet in the morning and 2 tablets at bedtime rosuvastatin (CRESTOR) 20 Take 20 mg by mouth at mg tablet bedtime daily. senna/docusate Take 2 Tabs by mouth at (SENOKOT-S) 8.6/50 mg bedtime daily. tablet traMADol (ULTRAM) 50 mg Take 1 Tab by mouth every 40 Tab 0 08/17/2016 tabletIndications: PAIN 6 hours as needed for Pain. Indications: PAIN traZODone (DESYREL) 150 Take 300 mg by mouth at mg tablet bedtime daily. vitamins, multiple cap Take 1 Cap by mouth daily. as of this encounter Plan of Treatment [...] Pharmacist for questions. Specimen Performing Laboratory [facility] [address] [place] [address] * CBC (03/31/2017 11:59 AM) Component Value [...] Specimen Performing Laboratory [facility] [address] [place], [place] [address] * PROSTATIC SPECIFIC ANTIGEN-PSA (03/31/2017 11:59 AM) Component Value Ref Range Prostatic Specific 0.02 <4.0 NG/ML Antigen Specimen Performing Laboratory [facility] [address] [place] [address] in this encounter Visit Diagnoses Diagnosis Malignant neoplasm of urinary bladder, unspecified site (HCC) Cancer of prostate (HCC) Malignant neoplasm of prostate Admitting Diagnoses Diagnosis Malignant neoplasm of bladder, unspecified (HCC) Malignant neoplasm of bladder, unspecified Malignant neoplasm of prostate (HCC) Malignant neoplasm of prostate
--- OUTSIDE RECORDS SUMMARY | 2017-05-03 09:05 | XMS REPORT | Encounter Summary ---
Author Author [facility] Organization [facility] Address Unknown Phone Unavailable Care Team Providers Care Customer Security Clerk Name Role Phone Cory Amaro MD Unavailable Min Lindsey MD PCP Karen Aguirre RN Unavailable Unavailable Alfredo Everett MD Unavailable Unavailable Jazmine Germain RN Unavailable Unavailable Kit Tian MD Unavailable Dinorah Khan RN Unavailable Unavailable Reason for Referral * Radiology Services Status Reason Specialty Diagnoses / Referred By Referred To Procedures Contact Contact New Request Radiology Diagnoses Sondra Malignant Cory Nguyen MD neoplasm of [address] bladder, Bl[address] unspecified site [place] [address] ([facility]) [place], [place] [address] rocedures Phone: CT ABD/PELV W [phone] CONTRAST Fax: CT ABD/PELV WO/W [phone] CONTRAST * Radiology Services Status Reason Specialty Diagnoses / Referred By Referred To Procedures Contact Contact New Request Radiology Diagnoses Magi Amaro MD neoplasm of [address] urinary bladder, Blvd unspecified site [place] [address] ([facility]) [place] [address] rocedures Phone: CT ABD/PELV W [phone] CONTRAST Fax: CT ABD/PELV WO/W [phone] CONTRAST * Radiology Services Status Reason Specialty Diagnoses / Referred By Referred To Procedures Contact Contact No Auth Needed Radiology Diagnoses Sondra, Mob Ct Malignant Cory Nguyen MD [address] neoplasm of [address] [facility] OFFICE BLDG urinary bladder, Blvd 2ND FLOOR unspecified site [address] [place], [place] (HCC) [place] [address] Phone: ezTaxi CT CHEST W [phone] CONTRAST Fax: CT CHEST WO/W [phone] CONTRAST * Radiology Services Status Reason Specialty Diagnoses / Referred By Referred To Procedures Contact Contact No Auth Needed Radiology Diagnoses Jimmy Amaro Ct Malignant Cory Nguyen MD [address] neoplasm of [address] MED OFFICE BLDG urinary bladder, Blvd 2ND FLOOR unspecified site [place] [address] [place] ([facility]) [place] [address] [address] [address] Phone: ezTaxi CT CHEST W [phone] CONTRAST Fax: CT CHEST WO/W [phone] CONTRAST Reason for Visit * Radiology Services Status Reason Specialty Diagnoses / Referred By Referred To Procedures Contact Contact No Auth Needed Radiology Diagnoses Jimmy Amaro Ct Malignant Cory Nguyen MD [address] neoplasm of [address] MED OFFICE BLDG urinary bladder, Blvd 2ND FLOOR unspecified site [place] [address] [place] ([facility]) [place] [address] Phone: ezTaxi CT CHEST W [phone] CONTRAST Fax: CT CHEST WO/W [phone] CONTRAST Encounter Details Date Type Department Care Team Description 03/31/2017 Hospital [facility] Cory Amaro, [facility] Radiology [address] OFF[address] [place] [address] [place] [address] [phone] Social History Tobacco Use Types Packs/Day Years [...] needed for Nausea or Vomiting. Ostomy Supplies [facility] Use 10 Units as directed 10 Each [...] Interface, Radiant Results - 03/31/2017 6:00 PM AUTO CAMP ATTENDANT CT CHEST, ABDOMEN AND PELVIS Clinical Indication: [...] Interface, Radiant Results - 03/31/2017 6:00 PM AUTO CAMP ATTENDANT CT CHEST, ABDOMEN AND PELVIS Clinical Indication: [...] MG/DL Specimen Performing Laboratory MAIN LAB [address] [place] [address] in this encounter Visit Diagnoses Diagnosis Malignant neoplasm of urinary bladder, unspecified site (HCC) Administered Medications Medication Order MAR Action Action Date Dose Rate Site iopamidol 370 (ISOVUE-370) injection 100 Given 03/31/2017 100 mL mL 12:20 AUTO CAMP ATTENDANT 100 mL, Intravenous, ONCE, 1 dose, 03/31/17 at 1230, NOTE: This is a HIGH ALERT Medication. sodium chloride PF 0.9% injection 50 mL Given 03/31/2017 50 mL 50 mL, Intravenous, ONCE, 1 dose, Fri 12:20 AUTO CAMP ATTENDANT 03/31/17 at 1230, Intra-procedure (IR) in this encounter
--- OUTSIDE RECORDS SUMMARY | 2017-05-03 09:05 | XMS REPORT | Clinical Summary ---
Author Author [facility] Organization [facility] Address Unknown Phone Unavailable Care Team Providers Care Ebd Teacher Name Role Phone Cory Amaro MD Unavailable Min Lindsey MD PCP Karen Aguirre RN Unavailable Unavailable Alfredo Everett MD Unavailable Unavailable Jazmine Germain RN Unavailable Unavailable Kit Tian MD Unavailable Dinorah Khan RN Unavailable Unavailable Source Comments Some departments are not documenting in the electronic medical record. If you do not see the information that you expected, contact Release of Information in the Health Information Management department at [phone] for further assistance in locating additional records.[facility] Allergies No Known Allergies Current Medications [...] Tab 3 09/17/19 Active weekly. Monday and Monday Wait 5 days before resuming your aspirin senna/docusate [...] daily as needed. 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 Plan: - No intervention necessary at this time - Keep regularly scheduled follow up appointment with CT scan in March 2017 Cancer of prostate (HCC) 12/23/2016 Bladder cancer ([facility]) 03/10/2015 Overview: 02/10/2014: Incedental finding of CIS of the bladder on TURP specimen performed for obstructive LUTS 04/01/14: repeat TURP - no residual disease - No BCG, no recurrent lesions on 3 and 6 month follow up cystoscopies 02/16/15: Cystoscopy: Findings: Bladder wall: inflamed with 3 bladder lesions. 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 UCC (piano refinisher) - No BCG or mitomycin (patient elected [...] Specialty Care Team Description 03/31/2017 Office Visit Urology Cory Aamro, Malignant neoplasm of urinary bladder, unspecified site (HCC) (Primary Dx); Prostate cancer (HCC) 03/31/2017 Hospital Lab Cory Amaro, Malignant neoplasm of Encounter bladder, unspecified (HCC) 03/31/2017 Hospital Radiology Cory Amaro, Encounter 03/03/2017 Office Visit Cory Hebert, Scrotal swelling 12/23/2016 Procedure Pass Radiology 12/23/2016 [...] Taken Blood Pressure 140/82 03/31/2017 2:03 PM CHANGE MANAGER Pulse 99 03/31/2017 2:03 PM CHANGE MANAGER Temperature 36.8 C (98.3 F) 08/17/2016 9:00 AM CDT Respiratory Rate - - Oxygen Saturation 98% 08/17/2016 9:00 AM CDT Inhaled Oxygen - - Concentration Weight 95.3 kg (210 lb) 03/31/2017 2:03 PM CHANGE MANAGER Height 167.6 cm (5' 5.98") 03/31/2017 2:03 PM CHANGE MANAGER Body Mass Index 33.92 03/31/2017 2:03 PM CHANGE MANAGER Plan of Treatment Date Type Specialty Care Team Description 03/31/2017 Procedure Pass Urology Health Maintenance Due Date Last Done Comments PHYSICAL (COMPREHENSIVE) 1941 EXAM PERTUSSIS VACCINE 1945 TETANUS VACCINE 06/19/1951 SHINGLES VACCINE 1994 PREVNAR/PNEUMOVAX (#2) 02/09/2016 02/08/2015 INFLUENZA VACCINE 10/25/2016 01/08/2015 Implants Implanted Type Area Director Television Device Expiration Model / Identifier Date Serial / Lot Left Knee Knee Set Stent 75cm 7fr Principal Web Developer .038in GAVINO GRP:COOK 06/14/2019 [id number] / 5mm Pigtail Curve Ureter NA / [...] Interface, Radiant Results - 03/31/2017 6:[address] CHEST, ABDOMEN AND PELVIS Clinical Indication: [...] Interface, Radiant Results - 03/31/2017 6:[address] CHEST, ABDOMEN AND PELVIS Clinical Indication: [...] 1.24 MG/DL Specimen Performing Laboratory MAIN LAB [address] [place] [address] * CBC (03/31/2017 11:59 AM) Component Value [...] Performing Laboratory Blood [facility] MAIN LAB [address] [place] [address] * PROSTATIC SPECIFIC ANTIGEN-PSA (03/31/2017 11:59 AM) Component Value Ref Range Prostatic Specific 0.02 <4.0 NG/ML Antigen Specimen Performing Laboratory Blood MAIN LAB [address] [place] [address] * BASIC METABOLIC PANEL (03/31/2017 11:59 AM) [...] Specimen Performing Laboratory Blood MAIN LAB [address] [place] [address] from Last 3 Months
--- OUTSIDE RECORDS SUMMARY | 2017-05-03 09:05 | XMS REPORT | Encounter Summary ---
Author Author [facility] Organization [facility] Address Unknown Phone Unavailable Care Team Providers Care Documentation Improvement Specialist Name Role Phone Cory Amaro MD Unavailable Min Lindsey MD PCP Karen Aguirre RN Unavailable Unavailable Alfredo Everett MD Unavailable Unavailable Jazmine Germain RN Unavailable Unavailable Kit Tian MD Unavailable Dinorah Khan RN Unavailable Unavailable Reason for Referral * Radiology Services Status Reason Specialty Diagnoses / Referred By Referred To Procedures Contact Contact New Request Radiology Diagnoses Magi Amaro MD neoplasm of [address] bladder, Bl[address] unspecified site [place] [address] (HCC) [place] [address] rocedures Phone: CT ABD/PELV WO/W [phone] CONTRAST Reason for Visit * Reason Comments Bladder Cancer Encounter Details Date Type Department Care Team Description 03/31/2017 Office Visit [facility] Cory Amaro, Malignant neoplasm of Physicians - Urology urinary bladder, 2ND FLOOR POD A [address] unspecified site (HCC) [address] (Primary Dx); [place] [address] Prostate cancer (HCC) [place], [place] [phone] [address] [phone] Social History Tobacco Use Types Packs/Day Years Used Date Former Smoker Cigarettes, Cigars 1.5 20 Quit: 03/27/1974 Smokeless Tobacco: Never Used Alcohol Use Drinks/Week oz/Week Comments No Sex Assigned at Date Recorded Not on file as of this encounter Last Filed Vital Signs Vital Sign Reading Time Taken Blood Pressure 140/82 03/31/2017 2:03 PM PROCESSOR HELPER Pulse 99 03/31/2017 2:03 PM PROCESSOR HELPER Temperature - - Respiratory Rate - - Oxygen Saturation - - Inhaled Oxygen - - Concentration Weight 95.3 kg (210 lb) 03/31/2017 2:03 PM PROCESSOR HELPER Height 167.6 cm (5' 5.98") 03/31/2017 2:03 PM PROCESSOR HELPER Body Mass Index 33.92 03/31/2017 2:03 PM PROCESSOR HELPER in this encounter Functional Status Functional Status [...] Cory Amaro MD - 03/31/2017 2:15 PM PROCESSOR HELPER Formatting of this note may be different from the original. Date of Service: 03/31/2017 Subjective: Leonid Kennedy Jr. is a 81 y.o. male. 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 With an incidentally detected Selina 73+ 4P T3a N0 MX prostate cancer. [...]
--- OUTSIDE RECORDS SUMMARY | 2017-05-03 09:05 | XMS REPORT | Encounter Summary ---
Author Author [facility] Organization [facility] Address Unknown Phone Unavailable Care Team Providers Care Inside Meter Tester Name Role Phone Cory Amaro MD Unavailable Min Lindsey MD PCP Karen Aguirre RN Unavailable Unavailable Alfredo Everett MD Unavailable Unavailable Jazmine Germain RN Unavailable Unavailable Kit Tian MD Unavailable Dinorah Khan RN Unavailable Unavailable Encounter Details Date Type Department Care Team Description 03/31/2017 Procedure Pass [facility] Physicians - Urology 2ND FLOOR POD A [address] [facility] [place] [address] Social History Tobacco Use Types [...]
--- OUTSIDE RECORDS SUMMARY | 2017-05-03 09:05 | XMS REPORT | Continuity of Care Document ---
Author Author [facility] Address Unknown Phone Unavailable Care Team Providers Care Matrix Repairer Name Role Phone [employer] Unavailable Unavailable Problems Medications Allergies, Adverse Reactions, Alerts Immunizations Results Vital Signs Encounters Location Location Details Encounter Type Encounter Number Reason For Visit Attending Provider ADM Date DC Date Status Source OUTPATIENT [id number] TASIA LOZOYA 09/16/2016 Active [facility] OUTPATIENT [id number] TASIA LOZOYA 12/23/2016 Active [facility] SPECIMEN [id number] TASIA LOZOYA 03/31/201707/2017 Active [facility] SPECIMEN [id number] TASIA LOZOYA 03/31/2017 Active [facility] O TASIA LOZOYA Active [facility] Procedures Plan of Care Social History Assessment and Plan Family History Advance Directives Functional Status
--- OUTSIDE RECORDS SUMMARY | 2017-05-03 09:06 | XMS REPORT | Encounter Summary ---
Author Author [facility] Organization [facility] Address Unknown Phone Unavailable Care Team Providers Care Medication Coordinator Name Role Phone Cory Amaro MD Unavailable Min Lindsey MD PCP Karen Aguirre RN Unavailable Unavailable Alfredo Everett MD Unavailable Unavailable Jazmine Germain RN Unavailable Unavailable Kit Tian MD Unavailable Dinorah Khan RN Unavailable Unavailable Encounter Details Date Type Department Care Team Description 12/23/2016 Procedure Pass [facility] Radiology [address] [facility] MED OFFICE [address] [place] [address] Social History Tobacco Use Types Packs/Day Years [...]
--- OUTSIDE RECORDS SUMMARY | 2017-05-03 09:06 | XMS REPORT | Encounter Summary ---
Author Author [facility] Organization [facility] Address Unknown Phone Unavailable Care Team Providers Care Delinquent Account Clerk Name Role Phone Cory Amaro MD Unavailable Min Lindsey MD PCP Karen Aguirre RN Unavailable Unavailable Alfredo Everett MD Unavailable Unavailable Jazmine Germain RN Unavailable Unavailable Kit Tian MD Unavailable Dinorah Khan RN Unavailable Unavailable Encounter Details Date Type Department Care Team Description 12/23/2016 Procedure Pass [facility] Radiology [address] [facility] MED OFFICE [address] [place] [address] Social History Tobacco Use Types Packs/Day Years [...]
--- OUTSIDE RECORDS SUMMARY | 2017-05-03 09:06 | XMS REPORT | Encounter Summary ---
Author Author [facility] Organization [facility] Address Unknown Phone Unavailable Care Team Providers Care Division Head Name Role Phone Cory Amaro MD Unavailable Min Lindsey MD PCP Karen Aguirre RN Unavailable Unavailable Alfredo Everett MD Unavailable Unavailable Jazmine Germain RN Unavailable Unavailable Kit Tian MD Unavailable Dinorah Khan RN Unavailable Unavailable Reason for Visit * Reason Comments Testicular Mass Encounter Details Date Type Department Care Team Description 03/03/2017 Office Visit [facility] Cory Amaro, Scrotal swelling Physicians - Urology MD 2ND FLOOR POD A [address] [place] [address] [place], [place] [phone] [address] [phone] Social History Tobacco Use Types Packs/Day Years Used Date Former Smoker Cigarettes, Cigars 1.5 20 Quit: 03/27/1974 Smokeless Tobacco: Never Used Alcohol Use Drinks/Week oz/Week Comments No Sex Assigned at Date Recorded Not on file as of this encounter Last Filed Vital Signs Vital Sign Reading Time Taken Blood Pressure 125/72 03/03/2017 2:32 PM ENVIRONMENTAL HEALTH AND SAFETY LEADER Pulse 85 03/03/2017 2:32 PM ENVIRONMENTAL HEALTH AND SAFETY LEADER Temperature - - Respiratory Rate - - Oxygen Saturation - - Inhaled Oxygen - - Concentration Weight 94.4 kg (208 lb 3.2 oz) 03/03/2017 2:32 PM ENVIRONMENTAL HEALTH AND SAFETY LEADER Height 167.6 cm (5' 5.98") 03/03/2017 2:32 PM ENVIRONMENTAL HEALTH AND SAFETY LEADER Body Mass Index 33.62 03/03/2017 2:32 PM ENVIRONMENTAL HEALTH AND SAFETY LEADER in this encounter Functional Status Functional Status [...] Cory Amaro MD - 03/03/2017 2:15 PM ENVIRONMENTAL HEALTH AND SAFETY LEADER Formatting of this note may be different from the original. Date of Service: 03/03/2017 Subjective: Leonid Kennedy Jr. is a 81 y.o. male who presents for evaluation. History of Present Illness 81-year-old male with history of recurrent CIS of the bladder status post radical cystoprostatectomy and ileal conduit on 08/10 with final pathology [id number] UCC and [id number] [place] 3 + 4 prostate cancer who presents [...] CYSTOSCOPY 03/10/2015 Blue light cystoscopy and TURBT ME CYSTOURETHROSCOPY W/DEST &/RMVL MED BLADDER ERNIE N/A 09/15/2015 BLUE LIGHT CYSTOSCOPY, TRANSURETHRAL RESECTION BLADDER TUMOR, BILATERAL RETROGRADE PYELOGRAMS performed by Cory Amaro MD at Main OR/ Periop ME CYSTOURETHROSCOPY W/DEST &/RMVL MED BLADDER ERNIE N/A 07/07/2016 BLUE LIGHT CYSTOSCOPY, TRANSURETHRAL RESECTION OF BLADDER TUMOR, BILATERAL RETROGRADE PYELOGRAMS performed by Cory Amaro MD at [facility] OR/ Periop ME CSTC COMPL W/CONDUIT/SIGMOID BLDR PEL LMPHADEC N/A [...] ileal conduit on 08/10 with final pathology [id number] UCC and [id number] Selina 3 + 4 prostate cancer with left [...] care. Leonid So MD PGY1 Urology Pager [phone] ATTESTATION I personally performed the stevens portions of the E/M visit, discussed case with resident and concur with resident documentation of history, physical exam, assessment, and treatment plan unless otherwise noted. Staff name: Cory Amaro MD Date: 03/06/2017 in this encounter Miscellaneous Notes * Assessment & Plan Note - Leonid So MD - 03/03/2017 5:05 PM ENVIRONMENTAL HEALTH AND SAFETY LEADER Associated Problem(s): Scrotal swelling 81-year-old male with history of recurrent CIS of the bladder status post radical cystoprostatectomy and ileal conduit on 08/10 with final pathology [id number] UCC and [id number] [place] 3 + 4 prostate cancer with left [...]
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
== END 2017-05-02 14:10 | disposition home or self-care (01) ==
LOC: EDUNIT# 12:58 → ER 12:59
DX: J11.1 Influenza due to unidentified influenza virus with other respiratory manifestations (principal); I25.10 Atherosclerotic heart disease of native coronary artery without angina pectoris; I25.2 Old myocardial infarction; E78.00 Pure hypercholesterolemia, unspecified; Z20.828 Contact with and (suspected) exposure to other viral communicable diseases; Z85.51 Personal history of malignant neoplasm of bladder; Z85.46 Personal history of malignant neoplasm of prostate; Z82.49 Family history of ischemic heart disease and other diseases of the circulatory system; Z88.8 Allergy status to other drugs, medicaments and biological substances; Z79.82 Long term (current) use of aspirin; Z96.652 Presence of left artificial knee joint; Z95.5 Presence of coronary angioplasty implant and graft
CPT/HCPCS: 87804; 94640; 99282

== ENCOUNTER 2017-08-28 12:16 | Emergency (ER) | payer MEDICARE ==
[~2017-08-28] VITALS: Ht 167.6 cm; Wt 88.5 kg
--- NOTE | 2017-08-28 12:28 | ED Respiratory ---
General Chief Complaint: Respiratory Problems Stated Complaint: SOB Source: patient, family Exam Limitations: no limitations History of Present Illness Date Seen by Provider: Aug 28, 2017 Time Seen by Provider: 12:24 Initial Comments to ER with reports of shortness of breath. He noticed last night that he felt as though he couldn't get a full breath of air. He has no history of COPD. He does have a cardiac history. Today while pushing mowing the lawn he states that he took a slow because he wasn't feeling well. However he still became unusually exhausted after push mowing the lawn so he presents to the emergency room. Timing/Duration: yesterday Severity: moderate Associated Symptoms: No cough, No fever/chills; shortness of breath; No wheezing Allergies and Home Medications Allergies Coded Allergies: NKANo Known Allergies (Verified Allergy, Mild, 11/24/11) Uncoded Allergies: BEE STINGS (Allergy, Severe, SOA/HIVES, 11/01/10) Home Medications Aspirin 81 Mg Tablet.dr, 81 MG PO , (Reported) Calcium Carbonate/Vitamin D3 1 Each Tablet, 1 TAB PO BID, (Reported) Cyclobenzaprine HCl 10 Mg Tablet, 10 MG PO BID PRN for MUSCLE SPASMS, (Reported) Diltiazem HCl 90 Mg Tablet, 45 MG PO HS, (Reported) TAKES 1/2 OF A (90 MG) TABLET / TAKES FOR LEG CRAMPS Diphenhydramine HCl 25 Mg Capsule, 25 MG PO BID, (Reported) Docusate Sodium 100 Mg Capsule, 100 MG PO DAILY, (Reported) Docusate Sodium 100 Mg Capsule, 200 MG PO HS, (Reported) TAKES 2 (100 MG) CAPSULES Furosemide 40 Mg Tablet, 40 MG PO DAILY PRN for PITTING EDEMA, (Reported) Gemfibrozil 600 Mg Tablet, 600 MG PO DAILY, (Reported) Hydrocodone Bit/Acetaminophen 1 Each Tablet, 1 TAB PO EVERY 4-6 HOURS PRN for PAIN, (Reported) Levothyroxine Sodium 50 Mcg Tablet, 50 MCG PO DAILY, (Reported) Mirabegron 50 Mg Tab.er.24h, 50 MG PO DAILY@1200, (Reported) Multivitamin 1 Each Tablet, 1 TAB PO DAILY, (Reported) Nitroglycerin 0.4 Mg Tab.subl, 0.4 MG SL UD PRN for CHEST PAIN, (Reported) 1 TAB EVERY 5 MINUTES UP TO 3 DOSES WITHIN 15 MINUTES; CALL 911 IF NO RELIEF Nitroglycerin 0.4 Mg Tab.subl, 0.4 MG SL when necessary Prescribed by: YULIET PETER on 06/07/16 1159 [place] 3 Polyunsat Fatty Acids 1,000 Mg Cap, 2,000 MG PO DAILY, (Reported) Oseltamivir Phosphate 75 Mg Cap, 75 MG PO BID Prescribed by: ASHLY VASQUEZ on 05/02/17 1354 Potassium Gluconate 90 Mg Tablet, 90 MG PO UD, (Reported) ONLY TAKES WITH FUROSEMIDE Pramipexole Di-HCl 0.25 Mg Tablet, 0.25 MG PO DAILY, (Reported) Pramipexole Di-HCl 0.25 Mg Tablet, 0.5 MG PO HS, (Reported) TAKES 2 (0.25 MG) TABLETS Rosuvastatin Calcium 20 Mg Tablet, 20 MG PO HS, (Reported) Solifenacin Succinate 5 Mg Tablet, 5 MG PO DAILY@1200, (Reported) Tamsulosin HCl 0.4 Mg Cap.er.24h, 0.4 MG PO HS, (Reported) Trazodone HCl 150 Mg Tablet, 150 MG PO HS PRN for SLEEP, (Reported) [Antivert] , 25 MG 4 times a day PRN for Dizziness Prescribed by: YULIET PETER on 08/29/16 1500 [Prevagen] , 1 TAB PO DAILY, (Reported) Patient Home Medication List Home Medication List Reviewed: Yes Review of Systems Constitutional: see HPI EENTM: see HPI Respiratory: see HPI; No cough; short of breath Cardiovascular: no symptoms reported; No chest pain, No edema Genitourinary: no symptoms reported Musculoskeletal: no symptoms reported Skin: no symptoms reported Psychiatric/Neurological: No Symptoms Reported Past Cedlqrl-Rbmbss-Jjzmjm Hx Patient Social History Former Smoker, Quit: Jun 07, 1974 2nd Hand Smoke Exposure: No Recent Foreign Travel: No Contact w/Someone Who Travel: No Recent Hopitalizations: No Immunizations Up To Date Tetanus Booster (TDap): Unknown Date of Pneumonia Vaccine: Feb 03, 2015 Date of Influenza Vaccine: Jan 13, 2016 Seasonal Allergies Seasonal Allergies: Yes Past Medical History Surgeries: Yes (LEFT WRIST, LEFT KNEE SCOPE, TOTAL LEFT KNEE, HEMORRHOIDS,TURP ) Joint Replacement Respiratory: No Currently Using CPAP: No Currently Using BIPAP: No Cardiac: Yes (STENTS X5) Coronary Artery Disease, Heart Attack, High Cholesterol Neurological: No Reproductive Disorders: No Sexually Transmitted Disease: No HIV/AIDS: No Prostate Problems Gastrointestinal: No Musculoskeletal: Yes Arthritis Endocrine: No Hearing Impairment: Denies, Hearing Aide Right, Hearing Aide Left Cancer: Yes (NOSE) Bladder, Prostate Psychosocial: No Integumentary: No Blood Disorders: No Adverse Reaction/Blood Tranf: No Family Medical History Arthritis 19 FATHER 19 MOTHER Diabetes mellitus 19 FATHER Myocardial infarction 19 FATHER 19 MOTHER Respiratory disorder G8 SISTER No Family History of: AIDS [place]'s disease Alcoholism Alzheimer's disease Cancer of mouth Colon cancer Completed stroke Dementia Kidney disease Parkinson's disease Prostate cancer Psychosocial problem Seizure disorder Severe allergy Thyroid disease Tuberculosis No Pertinent Family Hx Physical Exam Vital Signs Vital Signs - First Documented 08/28/17 12:26 Temp 96.8 Pulse 86 Resp 18 B/P (MAP) 136/89 (105) Pulse Ox 94 Capillary Refill : General Appearance: WD/WN, no apparent distress Eyes: Bilateral Eye Normal Inspection, Bilateral Eye PERRL, Bilateral Eye EOMI HEENT: PERRL/EOMI, normal ENT inspection Neck: non-tender, full range of motion Respiratory: normal breath sounds, no respiratory distress, no accessory muscle use Cardiovascular: regular rate, rhythm, no murmur Gastrointestinal: normal bowel sounds, non tender Extremities: normal range of motion; No pedal edema Neurologic/Psychiatric: alert, normal mood/affect, oriented x 3 Skin: normal color, warm/dry Procedures/Interventions Suture Size: 4-0 Progress/Results/Core Measures Suspected Sepsis SIRS Temperature: Pulse: Respiratory Rate: Laboratory Tests 08/28/17 12:25: White Blood Count 5.4 Blood Pressure / Mean: Laboratory Tests 08/28/17 12:25: Creatinine 1.21, Platelet Count 202, Total Bilirubin 0.5 Results/Orders Lab Results Laboratory Tests Test 08/28/17 12:25 Range/Units White Blood Count 5.4 4.3-11.0 10^3/uL Red Blood Count 4.73 4.35-5.85 10^6/uL Hemoglobin 15.0 13.3-17.7 G/DL Hematocrit 43 40-54 % Mean Corpuscular Volume 91 80-99 FL Mean Corpuscular Hemoglobin 32 25-34 PG Mean Corpuscular Hemoglobin Concent 35 32-36 G/DL Red Cell Distribution Width 14.7 H 10.0-14.5 % Platelet Count 202 130-400 10^3/uL Mean Platelet Volume 9.6 7.4-10.4 FL Neutrophils (%) (Auto) 70 42-75 % Lymphocytes (%) (Auto) 13 12-44 % Monocytes (%) (Auto) 7 0-12 % Eosinophils (%) (Auto) 9 0-10 % Basophils (%) (Auto) 1 0-10 % Neutrophils # (Auto) 3.8 1.8-7.8 X 10^3 Lymphocytes # (Auto) 0.7 L 1.0-4.0 X 10^3 Monocytes # (Auto) 0.4 0.0-1.0 X 10^3 Eosinophils # (Auto) 0.5 H 0.0-0.3 10^3/uL Basophils # (Auto) 0.0 0.0-0.1 10^3/uL D-Dimer 0.55 H 0.00-0.49 UG/ML Sodium Level 140 135-145 MMOL/L Potassium Level 4.4 3.6-5.0 MMOL/L Chloride Level 110 H 98-107 MMOL/L Carbon Dioxide Level 19 L 21-32 MMOL/L Anion Gap 11 5-14 MMOL/L Blood Urea Nitrogen 18 7-18 MG/DL Creatinine 1.21 0.60-1.30 MG/DL Estimat Glomerular Filtration Rate 57 BUN/Creatinine Ratio 15 Glucose Level 149 H 70-105 MG/DL Calcium Level 9.5 8.5-10.1 MG/DL Magnesium Level 2.4 1.8-2.4 MG/DL Total Bilirubin 0.5 0.1-1.0 MG/DL Aspartate Amino Transf (AST/SGOT) 29 5-34 U/L Alanine Aminotransferase (ALT/SGPT) 18 0-55 U/L Alkaline Phosphatase 79 40-136 U/L Troponin I < 0.30 <0.30 NG/ML B-Type Natriuretic Peptide 21.0 <100.0 PG/ML Total Protein 7.6 6.4-8.2 GM/DL Albumin 4.0 3.2-4.5 GM/DL My Orders Orders - LOUISA ARBOLEDA DEVELOPMENT PROFESSIONAL Cbc With Automated Diff (08/28/17 12:21) Comprehensive Metabolic Panel (08/28/17 12:21) BNP (08/28/17 12:21) Ekg Tracing (08/28/17 12:21) Troponin I (08/28/17 12:21) Iv Heplock-Insert (Order) (08/28/17 12:21) Magnesium (08/28/17 12:21) Chest Pa/Lat (2 View) (08/28/17 12:21) Fibrin Degradation Products (08/28/17 12:21) Vital Signs/I&O 08/28/17 12:26 Temp 96.8 Pulse 86 Resp 18 B/P (MAP) 136/89 (105) Pulse Ox 94 Capillary Refill : Diagnostic Imaging Diagonstic Imaging: Xray Comments NAME: YORDAN HAMILTON [facility] REC#: [id number] PT STATUS: REG ER : 1935 PHYSICIAN: LOUISA ARBOLEDA APRN ADMIT DATE: 08/28/17/ER Draft Date of Exam:08/28/17 CHEST PA/LAT (2 VIEW) Indication: Shortness of breath. Comparison made with prior examination of 06/06/2016. Findings: Heart size is normal. There is no pleural effusion or pneumothorax. There has been a previous median sternotomy. Mediastinum is unremarkable. Minimal scar atelectasis in lung bases. Impression: No acute cardiopulmonary abnormality. Dictated on workstation # [id number] Dict: 08/28/17 1250 Trans: 08/28/17 1252 CVB [id number] Interpreted by: MARY MIKE MD Electronically signed by: Departure Communication (Admissions) his d-dimer is negative when adjusted for age. 1331- his symptoms have completely resolved. He states he is ready to go home. I did recommend that he stay in the emergency room for a repeat troponin at the 4 hour john, and additional workup as indicated. He declines, stating "I got too much to do". His is an RN at the bedside and she agrees to ensure that he returns for any recurrence of symptoms. Impression Primary Impression: Dyspnea on exertion Disposition: HOME, SELF-CARE Condition: Stable Departure-Patient Inst. Decision time for Depature: 13:32 Referrals: BLAKE BOYCE MD (PCP/Family) Primary Care Physician Patient Instructions: Shortness of Breath (Dyspnea) Add. Discharge Instructions: 1. Return promptly to the emergency room for any worsening of symptoms, recurrence of symptoms or other concerns.All discharge instructions reviewed with patient and/or family. Voiced understanding. Copy Copies To 1: BLAKE BOYCE MD, PETER J APRN Aug 28, 2017 12:28
[2017-08-28 12:32] LABS: BASOPHILS % (AUTO) 1 % (0-10); EOSINOPHILS # (AUTO) 0.5 10^3/uL (0.0-0.3); EOSINOPHILS % (AUTO) 9 % (0-10); HEMATOCRIT 43 % (40-54); LYMPHOCYTES # (AUTO) 0.7 X 10^3 (1.0-4.0); LYMPHOCYTES % (AUTO) 13 % (12-44); MEAN CORPUSCULAR HEMOGLOBIN 32 PG (25-34); MEAN CORPUSCULAR HGB CONC 35 G/DL (32-36); MEAN CORPUSCULAR VOLUME 91 FL (80-99); MEAN PLATELET VOLUME 9.6 FL (7.4-10.4); MONOCYTES # (AUTO) 0.4 X 10^3 (0.0-1.0); MONOCYTES % (AUTO) 7 % (0-12); NEUTROPHILS # (AUTO) 3.8 X 10^3 (1.8-7.8); NEUTROPHILS % (AUTO) 70 % (42-75); PLATELET COUNT 202 10^3/uL (130-400); RED BLOOD COUNT 4.73 10^6/uL (4.35-5.85); RED CELL DISTRIBUTION WIDTH 14.7 % (10.0-14.5); WHITE BLOOD COUNT 5.4 10^3/uL (4.3-11.0)
--- NOTE | 2017-08-28 12:52 | Diagnostic Imaging Report ---
Indication: Shortness of breath. Comparison made with prior examination of 06/06/2016. Findings: Heart size is normal. There is no pleural effusion or pneumothorax. There has been a previous median sternotomy. Mediastinum is unremarkable. Minimal scar atelectasis in lung bases. Impression: No acute cardiopulmonary abnormality. Dictated by: Dictated on workstation # [id number]
[2017-08-28 12:53] LABS: ALANINE AMINOTRANSFERASE 18 U/L (0-55); ALKALINE PHOSPHATASE 79 U/L (40-136); BILIRUBIN,TOTAL 0.5 MG/DL (0.1-1.0); BUN/CREATININE RATIO 15; CALCIUM 9.5 MG/DL (8.5-10.1); CARBON DIOXIDE 19 MMOL/L (21-32); CHLORIDE 110 MMOL/L (98-107); CREATININE SERUM 1.21 MG/DL (0.60-1.30); GFR ESTIMATED 57; GLUCOSE 149 MG/DL (70-105); MAGNESIUM 2.4 MG/DL (1.8-2.4); POTASSIUM 4.4 MMOL/L (3.6-5.0); SODIUM 140 MMOL/L (135-145); TOTAL PROTEIN 7.6 GM/DL (6.4-8.2)
[2017-08-28 13:40] VITALS: BP 136/89
== END 2017-08-28 13:46 | disposition home or self-care (01) ==
LOC: EDUNIT# 12:16 → ER 12:18
DX: R06.09 Other forms of dyspnea (principal); I25.10 Atherosclerotic heart disease of native coronary artery without angina pectoris; I25.2 Old myocardial infarction; E78.00 Pure hypercholesterolemia, unspecified; Z85.51 Personal history of malignant neoplasm of bladder; Z85.46 Personal history of malignant neoplasm of prostate; Z79.82 Long term (current) use of aspirin; Z82.49 Family history of ischemic heart disease and other diseases of the circulatory system; Z87.891 Personal history of nicotine dependence; Z96.652 Presence of left artificial knee joint; Z95.5 Presence of coronary angioplasty implant and graft
CPT/HCPCS: 36415; 71046; 80053; 83735; 83880; 84484; 85025; 85379; 93005

== ENCOUNTER 2017-09-22 11:23 | Emergency (ER) | payer MEDICARE ==
[~2017-09-22] VITALS: Ht 170.2 cm; Wt 86.6 kg
[~2017-09-22 11:23] MED LIST changes: +GEMF600T4 PO; -ROSU20TA30 PO; +ROSU20TA31 PO; -SPIR25TA3 PO; +SPIR25TA5 PO
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
[2017-09-22] MEDS ORDERED: CEPH-507 PO (12:22)
[2017-09-22 12:26] VITALS: BP 148/86
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
== END 2017-09-22 12:27 | disposition home or self-care (01) ==
LOC: EDUNIT# 11:23 → ER 11:25
DX: S61.432A Puncture wound without foreign body of left hand, initial encounter (principal); I25.10 Atherosclerotic heart disease of native coronary artery without angina pectoris; I25.2 Old myocardial infarction; E78.00 Pure hypercholesterolemia, unspecified; Z85.46 Personal history of malignant neoplasm of prostate; Z85.51 Personal history of malignant neoplasm of bladder; Z79.82 Long term (current) use of aspirin; Z96.632 Presence of left artificial wrist joint; W34.09XA Accidental discharge from other specified firearms, initial encounter
CPT/HCPCS: 73130

== ENCOUNTER → 2017-10-18 | Outpatient (CLI) | payer MEDICARE ==
--- NOTE | 2017-10-18 12:52 | Diagnostic Imaging Report ---
EXAMINATION: PA and lateral chest at 10:19 a.m. INDICATION: Dyspnea. FINDINGS: The heart size is within normal limits and stable when compared to 08/28/2017. The sternotomy wires and surgical clips noted previously are again visualized and no different. There are chronic pulmonary changes evident, but there is no sign of failure, pneumonia, or a pleural effusion to indicate an acute abnormality. The mediastinum is not widened. The osseous structures are intact. IMPRESSION: There is evidence of prior cardiac surgery and chronic pulmonary disease, but there is no acute abnormality identified. When compared to the prior study, there has been no significant change. Dictated by: Dictated on workstation # [id number]
== END ==
LOC: RAD 09:46
DX: J44.9 Chronic obstructive pulmonary disease, unspecified (principal); Z98.890 Other specified postprocedural states
CPT/HCPCS: 71046

== ENCOUNTER 2018-02-17 16:26 | Emergency (ER) | payer MEDICARE ==
[~2018-02-17] VITALS: Ht 170.2 cm; Wt 92.5 kg
[~2018-02-17 16:26] MED LIST changes: +HYDR-4226 PO; -HYDR-757 PO
--- OUTSIDE RECORDS SUMMARY | 2018-02-17 16:31 | XMS REPORT | Clinical Summary ---
Author Author [facility] Organization [facility] Address Unknown Phone Unavailable Care Team Providers Care Tobacco Farmworker Name Role Phone Cory Amaro MD Unavailable [...] in the Health Information Management department at [phone] for further assistance in locating additional records.[facility] Allergies No Known Allergies Current Medications [...] Wait 5 days before resuming your aspirin other medication Take 1 Dose by mouth [...] every 40 Tab 0 08/18/19 Active tabletIndications: Pain 6 hours as needed for 17 Pain. 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) - No BCG or mitomycin (patient [...] small meals, high protein, add protein powder Immunizations Name Dates Previously Given Next Due [...] Vital Sign Reading Time Taken Blood Pressure 120/51 09/29/2017 12:56 PM CDT Pulse 83 09/29/2017 12:56 PM CDT Temperature 36.8 C (98.3 F) 08/17/2016 9:00 AM CDT Respiratory Rate - - Oxygen Saturation 98% 08/17/2016 9:00 AM CDT Inhaled Oxygen - - Concentration Weight 90.7 kg (200 lb) 09/29/2017 12:56 PM CDT Height 170.2 cm (5' 7") 09/29/2017 12:56 PM CDT Body Mass Index 31.32 09/29/2017 12:56 PM CDT Plan of Treatment Date Type Specialty Care Team Description 09/29/2017 Procedure Pass Urology Health Maintenance Due Date Last Done Comments PHYSICAL (COMPREHENSIVE) 1941 EXAM DTAP/TDAP VACCINES (1 - 1952 Tdap) SHINGLES RECOMBINANT 1984 VACCINE (1 of 2) PNEUMONIA (PCV13/PPSV23) 02/09/2016 02/08/2015 VACCINES (2 of 2 - PCV13) INFLUENZA VACCINE 10/25/2017 01/08/2015, 01/06/2005, 01/01/2004, Additional history exists Implants Implanted Type Area Mobile Game Engineer Device Expiration Model / Identifier Date Serial / Lot Left Knee Knee Set Stent 75cm 7fr Multigrapher .038in GAVINO GRP:GAVINO 06/14/2019 [id number] / 5mm Pigtail Curve Ureter NA / Implanted: Qty: 1 on 08/10/2016 by Cory Pickard MD Results Not on filefrom Last 3 Months
--- OUTSIDE RECORDS SUMMARY | 2018-02-17 16:40 | XMS REPORT | Continuity of Care Document ---
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 [id number] 03/10/2014 08:45:00 03/10/2014 12:10:00 DIS Outpatient ROSARIO ODOM MD [facility] HEMOCCULT STOOLS [id number] 03/05/2014 06:09:00 03/05/2014 23:59:59 CLS Outpatient ROSARIO ODOM MD [facility] PREOP HEMOCULT STOOLS [id number] 02/12/2014 16:29:00 02/12/2014 18:50:00 DIS Emergency LOUISA ARBOLEDA [employer]ITATION ASSOCIATE [facility] ER CATHETER LEAKING;PAIN [id number] 02/10/2014 06:00:00 02/11/2014 13:35:00 DIS Outpatient JAVIER NICHOLAS MD [facility] SDC BPH [id number] 02/06/2014 22:10:00 02/07/2014 13:40:00 DIS Inpatient BLAKE BOYCE MD [facility] CSD CHEST PAIN [id number] 02/04/2014 10:00:00 02/04/2014 23:59:59 CLS Outpatient JAVIER NICHOLAS MD [facility] PREOP BPH [id number] 01/06/2014 11:38:00 01/06/2014 11:57:00 DIS Emergency TAVIA LOPEZ MD [facility] ER STITCH REMOVAL [id number] 12/30/2013 10:32:00 12/30/2013 11:14:00 DIS Emergency TAVIA LOPEZ MD [facility] ER LEFT THUMB LAC [id number] 11/21/2013 11:54:00 11/21/2013 23:59:59 CLS Outpatient 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 APRN [facility] RAD LUMBAGO [id number] 09/20/2013 18:08:00 09/20/2013 18:58:00 DIS Emergency ASHLY BARAHONA [facility] ER L HAND PINKY LAC [id number] 04/11/2013 08:44:00 04/11/2013 23:59:59 CLS Outpatient BLAKE BOYCE MD [facility] RAD DIZZINESS,HEADACHE [id number] 05/15/2014 08:38:00 Document Registration [id number] 02/10/2012 15:51:00 Document Registration [id number] 01/19/2012 08:42:00 Document Registration [id number] 12/08/2011 09:01:00 Document Registration [id number] 11/24/2011 13:06:00 Document Registration [id number] 10/04/2011 12:41:00 Document Registration [id number] 05/22/2011 08:10:00 Document Registration [id number] 04/06/2011 15:51:00 Document Registration [id number] 02/09/2011 12:06:00 Document Registration [id number] 01/28/2011 11:26:00 Document Registration [id number] 11/01/2010 20:04:00 Document Registration [id number] 09/10/2010 12:10:00 Document Registration [id number] 08/06/2010 09:23:00 Document Registration [id number] 07/31/2010 10:50:00 Document Registration [id number] 07/08/2010 07:23:00 Document Registration [id number] 12/25/2009 07:47:00 Document Registration [id number] 11/06/2009 09:13:00 Document Registration [id number] 09/21/2009 14:38:00 Document Registration [id number] 07/16/2009 07:03:00 Document Registration [id number] 06/30/2009 10:19:00 Document Registration [id number] 03/31/2009 14:19:00 Document Registration [id number] 09/08/2008 15:12:00 Document Registration [id number] 11/28/2014 12:49:45 ACT Document Registration
[2018-02-17] MEDS ORDERED: ASPIRIN 81 MG CHEW (CHILDREN'S ASA) PO ONE (17:00)
[2018-02-17 17:29] LABS: BASOPHILS % (AUTO) 1 % (0-10); EOSINOPHILS # (AUTO) 0.7 10^3/uL (0.0-0.3); EOSINOPHILS % (AUTO) 12 % (0-10); HEMATOCRIT 43 % (40-54); HEMOGLOBIN 14.6 G/DL (13.3-17.7); LYMPHOCYTES # (AUTO) 0.9 X 10^3 (1.0-4.0); LYMPHOCYTES % (AUTO) 16 % (12-44); MEAN CORPUSCULAR HEMOGLOBIN 31 PG (25-34); MEAN CORPUSCULAR HGB CONC 34 G/DL (32-36); MEAN CORPUSCULAR VOLUME 93 FL (80-99); MEAN PLATELET VOLUME 9.3 FL (7.4-10.4); MONOCYTES # (AUTO) 0.5 X 10^3 (0.0-1.0); MONOCYTES % (AUTO) 9 % (0-12); NEUTROPHILS # (AUTO) 3.5 X 10^3 (1.8-7.8); NEUTROPHILS % (AUTO) 62 % (42-75); PLATELET COUNT 200 10^3/uL (130-400); RED BLOOD COUNT 4.66 10^6/uL (4.35-5.85); RED CELL DISTRIBUTION WIDTH 14.2 % (10.0-14.5); WHITE BLOOD COUNT 5.7 10^3/uL (4.3-11.0)
[2018-02-17] MEDS ORDERED: RT-ALBUTEROL/IPRATROPIUM 3 ML (DUONEB) VIAL INH ONE (17:30)
[2018-02-17 17:33] LABS: PROTHROMBIN TIME PATIENT 13.1 SEC (12.2-14.7)
[2018-02-17 17:40] LABS: ALANINE AMINOTRANSFERASE 20 U/L (0-55); ALBUMIN 4.4 GM/DL (3.2-4.5); ALKALINE PHOSPHATASE 82 U/L (40-136); BILIRUBIN,TOTAL 0.4 MG/DL (0.1-1.0); BUN/CREATININE RATIO 14; CALCIUM 10.3 MG/DL (8.5-10.1); CARBON DIOXIDE 23 MMOL/L (21-32); CHLORIDE 103 MMOL/L (98-107); CREATININE SERUM 1.34 MG/DL (0.60-1.30); GFR ESTIMATED 51; GLUCOSE 96 MG/DL (70-105); MAGNESIUM 2.5 MG/DL (1.8-2.4); SODIUM 140 MMOL/L (135-145); TOTAL PROTEIN 8.1 GM/DL (6.4-8.2)
[2018-02-17 17:47] LABS: MYOGLOBIN SERUM 108.4 NG/ML (10.0-92.0)
--- NOTE | 2018-02-17 17:57 | Diagnostic Imaging Report ---
INDICATION: Shortness of air COMPARISON: 10/18/2017 FINDINGS: Single frontal view of the chest demonstrates normal heart size and pulmonary vascularity. The lungs are well aerated and clear. No large pleural effusion or pneumothorax is seen. The visualized osseous structures show no acute abnormalities. Sternotomy wires are noted. IMPRESSION: 1. No acute cardiopulmonary process. Dictated by: Dictated on workstation # [id number]
[2018-02-17 17:58] LABS: EOSINOPHILS % (MANUAL) 8 %; LYMPHOCYTES % (MANUAL) 21 %; MONOCYTES % (MANUAL) 8 %; NEUTROPHILS % (MANUAL) 63 %; RBC MORPH NORMAL
[2018-02-17] MEDS ORDERED: ALB0.5V IH (18:18)
--- NOTE | 2018-02-17 18:19 | ED General ---
General Chief Complaint: Respiratory Problems Stated Complaint: POST CARDIAC CATH/CHEST TIGHTNESS Nursing Triage Note: Pt c/o SOB. Pt reports taking two puffs of albuterol with no relief prior to arrival to ED. Pt reports cardiac stent placed 1-2 weeks ago. Nursing Sepsis Screen: No Definite Risk Source of Information: Patient, Family Exam Limitations: No Limitations History of Present Illness Date Seen by Provider: Feb 17, 2018 Time Seen by Provider: 17:18 Initial Comments This 82-year-old gentleman presents to the emergency room with complaints of subtle chest tightness. His also reports that he has seen more somnolent today. Symptoms started somewhere between noon and 14:00. He was evaluated for similar symptoms by his dialysis patient care technician, Dr. Desai. A cardiac catheterization was performed on February 06. A stent was placed. He has a pending referral to a assembly line upholsterer for further evaluation. He has been taking Plavix as well as a recently prescribed lisinopril. He denies any true chest pain. He took 2 puffs of an albuterol inhaler before coming to the ER which did not change his symptoms much. Allergies and Home Medications Allergies Coded Allergies: NKANo Known Allergies (Verified Allergy, Mild, 11/24/11) Uncoded Allergies: BEE STINGS (Allergy, Severe, SOA/HIVES, 11/01/10) Home Medications Albuterol Sulfate 2.5 Mg/0.5 Ml Vial.neb, 2.5 MG IH Q4H PRN for SHORTNESS OF BREATH Prescribed by: YAW CELESTE on 02/17/18 1818 Aspirin 81 Mg Tablet.dr, 81 MG PO [place], (Reported) Calcium Carbonate/Vitamin D3 1 Each Tablet, 1 TAB PO BID, (Reported) Cephalexin 500 Mg Capsule, 500 MG PO TID Prescribed by: LOUISA ARBOLEDA on 09/22/17 1222 Cyclobenzaprine HCl 10 Mg Tablet, 10 MG PO BID PRN for MUSCLE SPASMS, (Reported) Diltiazem HCl 90 Mg Tablet, 45 MG PO HS, (Reported) TAKES 1/2 OF A (90 MG) TABLET / TAKES FOR LEG CRAMPS Diphenhydramine HCl 25 Mg Capsule, 25 MG PO BID, (Reported) Docusate Sodium 100 Mg Capsule, 100 MG PO DAILY, (Reported) Docusate Sodium 100 Mg Capsule, 200 MG PO HS, (Reported) TAKES 2 (100 MG) CAPSULES Furosemide 40 Mg Tablet, 40 MG PO DAILY PRN for PITTING EDEMA, (Reported) Gemfibrozil 600 Mg Tablet, 600 MG PO DAILY, (Reported) Hydrocodone Bit/Acetaminophen 1 Each Tablet, 1 TAB PO EVERY 4-6 HOURS PRN for PAIN, (Reported) Levothyroxine Sodium 50 Mcg Tablet, 50 MCG PO DAILY, (Reported) Mirabegron 50 Mg Tab.er.24h, 50 MG PO DAILY@1200, (Reported) Multivitamin 1 Each Tablet, 1 TAB PO DAILY, (Reported) Nitroglycerin 0.4 Mg Tab.subl, 0.4 MG SL UD PRN for CHEST PAIN, (Reported) 1 TAB EVERY 5 MINUTES UP TO 3 DOSES WITHIN 15 MINUTES; CALL 911 IF NO RELIEF Nitroglycerin 0.4 Mg Tab.subl, 0.4 MG SL when necessary Prescribed by: YULIET PETER on 06/07/16 1159 Electra 3 Polyunsat Fatty Acids 1,000 Mg Cap, 2,000 MG PO DAILY, (Reported) Oseltamivir Phosphate 75 Mg Cap, 75 MG PO BID Prescribed by: ASHLY VASQUEZ on 05/02/17 1354 Potassium Gluconate 90 Mg Tablet, 90 MG PO UD, (Reported) ONLY TAKES WITH FUROSEMIDE Pramipexole Di-HCl 0.25 Mg Tablet, 0.25 MG PO DAILY, (Reported) Pramipexole Di-HCl 0.25 Mg Tablet, 0.5 MG PO HS, (Reported) TAKES 2 (0.25 MG) TABLETS Rosuvastatin Calcium 20 Mg Tablet, 20 MG PO HS, (Reported) Solifenacin Succinate 5 Mg Tablet, 5 MG PO DAILY@1200, (Reported) Tamsulosin HCl 0.4 Mg Cap.er.24h, 0.4 MG PO HS, (Reported) Trazodone HCl 150 Mg Tablet, 150 MG PO HS PRN for SLEEP, (Reported) [Antivert] , 25 MG 4 times a day PRN for Dizziness Prescribed by: YULIET PETER on 08/29/16 1500 [Prevagen] , 1 TAB PO DAILY, (Reported) Patient Home Medication List Home Medication List Reviewed: Yes Review of Systems Review of Systems Constitutional: see HPI EENTM: no symptoms reported Respiratory: see HPI Cardiovascular: see HPI Gastrointestinal: no symptoms reported Genitourinary: no symptoms reported Musculoskeletal: no symptoms reported Skin: no symptoms reported Psychiatric/Neurological: No Symptoms Reported Hematologic/Lymphatic: No Symptoms Reported Immunological/Allergic: no symptoms reported Past Bnuhyrd-Bxoloz-Wcplvi Hx Past Med/Social Hx: Reviewed and Corrections made Patient Social History Alcohol Use: Denies Use Recreational Drug Use: No Former Smoker, Quit: Jun 07, 1974 2nd Hand Smoke Exposure: No Recent Foreign Travel: No Contact w/Someone Who Travel: No Recent Infectious Disease Expo: No Recent Hopitalizations: No Immunizations Up To Date Tetanus Booster (TDap): Unknown Date of Pneumonia Vaccine: Feb 03, 2015 Date of Influenza Vaccine: Jan 13, 2016 Seasonal Allergies Seasonal Allergies: Yes Past Medical History Surgeries: Yes (LEFT WRIST, LEFT KNEE SCOPE, TOTAL LEFT KNEE, HEMORRHOIDS,TURP ) Abdominal (colostomy), Coronary Stent, Joint Replacement Respiratory: No Currently Using CPAP: No Currently Using BIPAP: No Cardiac: Yes (STENTS X5) Coronary Artery Disease, Heart Attack, High Cholesterol Neurological: No Reproductive Disorders: No Sexually Transmitted Disease: No HIV/AIDS: No Prostate Problems Gastrointestinal: Yes (colostomy) Obstructive Bowel Musculoskeletal: Yes Arthritis Endocrine: No Hearing Impairment: Denies, Hearing Aide Right, Hearing Aide Left Cancer: Yes (NOSE) Bladder, Prostate Psychosocial: No Integumentary: No Blood Disorders: No Adverse Reaction/Blood Tranf: No Family Medical History Reviewed Nursing Family Hx Arthritis 19 FATHER 19 MOTHER Diabetes mellitus 19 FATHER Myocardial infarction 19 FATHER 19 MOTHER Respiratory disorder G8 SISTER No Family History of: AIDS Chouteau's disease Alcoholism Alzheimer's disease Cancer of mouth Colon cancer Completed stroke Dementia Kidney disease Parkinson's disease Prostate cancer Psychosocial problem Seizure disorder Severe allergy Thyroid disease Tuberculosis No Pertinent Family Hx Physical Exam Vital Signs Vital Signs - First Documented 02/17/18 16:30 Temp 97.8 Pulse 60 Resp 10 B/P (MAP) 121/53 (75) Pulse Ox 96 O2 Delivery Room Air Capillary Refill : Less Than 3 Seconds Height, Weight, BMI Height: 5'7.00" Weight: 204lbs. 0oz. 92.583841op; 33.1 BMI Method:Stated General Appearance: No Apparent Distress, WD/WN HEENT: PERRL/EOMI, Normal ENT Inspection, Pharynx Normal Neck: Normal Inspection Respiratory: No Accessory Muscle Use, No Respiratory Distress, Crackles ( finger crackles in the bilateral bases), Wheezing, Other (forced expiration induces wheeze. Expiratory phase is prolonged) Cardiovascular: Regular Rate, Rhythm, No Edema, No Murmur Gastrointestinal: Normal Bowel Sounds, Non Tender, Soft Extremity: Normal Inspection, No Pedal Edema Neurologic/Psychiatric: Alert, Oriented x3, No Motor/Sensory Deficits, Normal Mood/Affect, clinical account manager II-XII Norm as Tested Skin: Normal Color, Warm/Dry Procedures/Interventions Suture Size: 4-0 Progress/Results/Core Measures Suspected Sepsis Recent Fever Within 48 Hours: No Infection Criteria Present: None New/Unexplained Altered Menta: No Sepsis Screen: No Definite Risk SIRS Temperature:97.8 Pulse: 60 Respiratory Rate: 10 Laboratory Tests 02/17/18 17:15: White Blood Count 5.7 Blood Pressure 121 /53 Mean: 75 Laboratory Tests 02/17/18 17:15: Creatinine 1.34H, INR Comment 1.0, Platelet Count 200, Total Bilirubin 0.4 Results/Orders Lab Results Laboratory Tests Test 02/17/18 17:15 Range/Units White Blood Count 5.7 4.3-11.0 10^3/uL Red Blood Count 4.66 4.35-5.85 10^6/uL Hemoglobin 14.6 13.3-17.7 G/DL Hematocrit 43 40-54 % Mean Corpuscular Volume 93 80-99 FL Mean Corpuscular Hemoglobin 31 25-34 PG Mean Corpuscular Hemoglobin Concent 34 32-36 G/DL Red Cell Distribution Width 14.2 10.0-14.5 % Platelet Count 200 130-400 10^3/uL Mean Platelet Volume 9.3 7.4-10.4 FL Neutrophils (%) (Auto) 62 42-75 % Lymphocytes (%) (Auto) 16 12-44 % Monocytes (%) (Auto) 9 0-12 % Eosinophils (%) (Auto) 12 H 0-10 % Basophils (%) (Auto) 1 0-10 % Neutrophils # (Auto) 3.5 1.8-7.8 X 10^3 Lymphocytes # (Auto) 0.9 L 1.0-4.0 X 10^3 Monocytes # (Auto) 0.5 0.0-1.0 X 10^3 Eosinophils # (Auto) 0.7 H 0.0-0.3 10^3/uL Basophils # (Auto) 0.0 0.0-0.1 10^3/uL Neutrophils % (Manual) 63 % Lymphocytes % (Manual) 21 % Monocytes % (Manual) 8 % Eosinophils % (Manual) 8 % Blood Morphology Comment NORMAL Prothrombin Time 13.1 12.2-14.7 SEC INR Comment 1.0 0.8-1.4 Activated Partial Thromboplast Time 30 24-35 SEC Sodium Level 140 135-145 MMOL/L Potassium Level 4.0 3.6-5.0 MMOL/L Chloride Level 103 98-107 MMOL/L Carbon Dioxide Level 23 21-32 MMOL/L Anion Gap 14 5-14 MMOL/L Blood Urea Nitrogen 19 H 7-18 MG/DL Creatinine 1.34 H 0.60-1.30 MG/DL Estimat Glomerular Filtration Rate 51 BUN/Creatinine Ratio 14 Glucose Level 96 70-105 MG/DL Calcium Level 10.3 H 8.5-10.1 MG/DL Corrected Calcium 10.0 8.5-10.1 MG/DL Magnesium Level 2.5 H 1.8-2.4 MG/DL Total Bilirubin 0.4 0.1-1.0 MG/DL Aspartate Amino Transf (AST/SGOT) 22 5-34 U/L Alanine Aminotransferase (ALT/SGPT) 20 0-55 U/L Alkaline Phosphatase 82 40-136 U/L Myoglobin 108.4 H 10.0-92.0 NG/ML Troponin I < 0.30 <0.30 NG/ML C-Reactive Protein High Sensitivity 0.16 0.00-0.50 MG/DL B-Type Natriuretic Peptide 23.9 <100.0 PG/ML Total Protein 8.1 6.4-8.2 GM/DL Albumin 4.4 3.2-4.5 GM/DL My Orders Orders - YAW SPAULDING MD Albuterol/Ipra Inhalation Soln (Duoneb I (02/17/18 17:30) Svn Small Volume Nebulizer (02/17/18 17:26) Hs C Reactive Protein (02/17/18 17:26) Medications Given in ED Current Medications Medications Dose Ordered Sig/Fahad Route Start Time Stop Time Status Last Admin Dose Admin Albuterol/ Ipratropium 3 ml ONCE ONCE INH 02/17/18 17:30 02/17/18 17:31 DC 02/17/18 17:30 3 ML Aspirin 324 mg ONCE ONCE PO 02/17/18 17:00 02/17/18 17:01 DC 02/17/18 17:21 243 MG Vital Signs/I&O 02/17/18 02/17/18 16:30 17:30 Temp 97.8 Pulse 60 Resp 10 B/P (MAP) 121/53 (75) Pulse Ox 96 96 O2 Delivery Room Air Room Air Capillary Refill : Less Than 3 Seconds Blood Pressure Mean: 75 Progress Note : Progress Note Forced expiration induced wheeze and expiratory phase was prolonged. DuoNeb treatment was administered which did improve his symptoms. Workup was otherwise unremarkable. Patient was prescribed a nebulizer machine. I encouraged him to follow through with his pulmonology referral. ECG Initial ECG Impression Date: Feb 17, 2018 Initial ECG Impression Time: 16:31 Initial ECG Rate: 56 Initial ECG Rhythm: Normal Sinus Comment Sinus rhythm with incomplete right bundle branch block. No ST elevation or depression. No axis deviation. Diagnostic Imaging Diagonstic Imaging: Xray Plain Films/CT/US/NM/MRI: chest Comments Chest x-ray viewed by me and report reviewed. See report below: NAME: YORDAN HAMILTNO [facility] REC#: [id number] PT STATUS: REG ER : 1935 PHYSICIAN: LOUISA ARBOLEDA APRN ADMIT DATE: 02/17/18/ER Draft Date of Exam:02/17/18 CHEST 1 VIEW, AP/PA ONLY INDICATION: Shortness of air COMPARISON: 10/18/2017 FINDINGS: Single frontal view of the chest demonstrates normal heart size and pulmonary vascularity. The lungs are well aerated and clear. No large pleural effusion or pneumothorax is seen. The visualized osseous structures show no acute abnormalities. Sternotomy wires are noted. IMPRESSION: 1. No acute cardiopulmonary process. Dictated on workstation # [id number] Dict: 02/17/181752 Trans: 02/17/181756 [facility] [id number] Interpreted by: LYNN BRANDT MD Departure Impression Primary Impression: Bronchospasm Additional Impressions: Chest tightness Coronary artery disease Qualified Codes: I25.10 - Atherosclerotic heart disease of [place] coronary artery without angina pectoris Disposition: HOME, SELF-CARE Condition: Improved Departure-Patient Inst. Decision time for Depature: 18:17 Referrals: BLAKE BOYCE MD (PCP/Family) Primary Care Physician Patient Instructions: Chronic Obstructive Pulmonary Disease (COPD), Including Emphysema Add. Discharge Instructions: Return to the ER if you have worsening symptoms. Follow-up with your dialysis patient care technician and primary care provider soon as possible. You may use your inhaler up to 4 puffs and a 4 hour period of time for shortness of breath, chest tightness, or wheezing. When available, you may use a nebulizer treatment in place of the inhaler. Follow through with the pulmonology referral as previously recommended. All discharge instructions reviewed with patient and/or family. Voiced understanding. Scripts Albuterol Sulfate (Albuterol Sulfate) 2.5 Mg/0.5 Ml Vial.neb 2.5 MG IH Q4H PRN for SHORTNESS OF BREATH, #20 EACH 1 Refill Prov: YAW SPAULDING MD 02/17/18 Copy Copies To 1: BLAKE BOYCE MD, JOSHUA T MD Feb 17, 2018 18:19
[2018-02-17 18:38] VITALS: BP 124/64
== END 2018-02-17 18:38 | disposition home or self-care (01) ==
LOC: EDUNIT# 16:26 → ER 16:27
DX: J98.01 Acute bronchospasm (principal); R07.89 Other chest pain; I25.10 Atherosclerotic heart disease of native coronary artery without angina pectoris; I25.2 Old myocardial infarction; E78.00 Pure hypercholesterolemia, unspecified; Z93.3 Colostomy status; Z85.46 Personal history of malignant neoplasm of prostate; Z85.51 Personal history of malignant neoplasm of bladder; Z82.49 Family history of ischemic heart disease and other diseases of the circulatory system; Z95.9 Presence of cardiac and vascular implant and graft, unspecified; Z79.51 Long term (current) use of inhaled steroids; Z79.82 Long term (current) use of aspirin; Z95.5 Presence of coronary angioplasty implant and graft; Z87.891 Personal history of nicotine dependence; Z96.652 Presence of left artificial knee joint; Z87.19 Personal history of other diseases of the digestive system
CPT/HCPCS: 36415; 71045; 80053; 83735; 83874; 83880; 84484; 85007; 85027; 85610; 85730; 86141; 93005; 93041; 94640

== ENCOUNTER → 2018-03-15 | Outpatient (CLI) | payer MEDICARE ==
[~2018-03-15] MED LIST changes: +ALB0.5V IH
--- NOTE | 2018-03-15 15:38 | Diagnostic Imaging Report ---
EXAMINATION: Pelvis and bilateral hips. INDICATION: Chronic bilateral hip pain worse on the left. FINDINGS: A single AP view of the pelvis and AP and lateral views of both hip joints are obtained. There is no fracture, dislocation, or acute bony abnormality evident. 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 The degenerative changes have not progressed significantly since the prior exam of 04/07/2016. There is mild symmetrical sclerosis of the sacroiliac joints. In the interval since the prior study, the patient has undergone a surgical procedure and there are now surgical clips on each side of the pelvis. The soft tissues are unremarkable. IMPRESSION: 1. There is no evidence for an acute bony abnormality. 2. If clinical concern regarding an underlying abnormality persists and further imaging is desired, then MRI will be recommended. Dictated by: Dictated on workstation # [id number]
== END ==
LOC: RAD 10:38
DX: G89.29 Other chronic pain (principal); M25.551 Pain in right hip; M25.552 Pain in left hip
CPT/HCPCS: 73523

== ENCOUNTER 2018-06-09 08:35 | Emergency (ER) | payer MEDICARE ==
[~2018-06-09] VITALS: Ht 170.2 cm; Wt 88.5 kg
[~2018-06-09 08:35] MED LIST changes: -GEMF600T4 PO; +GEMF600T8 PO
--- OUTSIDE RECORDS SUMMARY | 2018-06-09 08:40 | XMS REPORT | Clinical Summary ---
Author Author [facility] Organization [facility] Address Unknown Phone Unavailable Care Team Providers Care Assembler Radio And Electrical Name Role Phone Cory Amaro MD Unavailable [...] in the Health Information Management department at [phone] for further assistance in locating additional records.[facility] Allergies No Known Allergies Medications End Date Status Medication Sig Dispensed Refills Start Date Active gemfibrozil (LOPID) 600 Take 600 mg 0 mg tablet by mouth daily. Active traZODone (DESYREL) 150 Take 300 mg 0 mg tablet by mouth at bedtime daily. Active levothyroxine (SYNTHROID) Take 50 mcg 0 50 mcg tablet by mouth daily. Active docusate (COLACE) 100 mg Take 100 mg 0 capsule by mouth daily. Active pramipexole (MIRAPEX) Take by 0 0.25 mg tablet mouth twice daily. 1 tablet in the morning and 2 tablets at bedtime Active fish oil /omega-3 fatty Take 1 Cap by 0 acids (SEA-OMEGA) mouth twice 340/1000 mg capsule daily. Active calcium carbonate/vitamin Take 1 Tab by 0 D-3 (OSCAL-500+D) 1250 mouth twice mg/200 unit tablet daily with meals. Calcium Carb 1250mg delivers 500mg elemental Ca Active vitamins, multiple cap Take 1 Cap by 0 mouth daily. Active diltiazem (CARDIZEM) 90 Take 90 mg by 0 mg tabletIndications: Leg mouth at cramps bedtime daily. Active aspirin EC 81 mg tablet Take 1 Tab by 90 Tab 3 mouth twice 6 weekly. Monday and Monday Wait 5 days before resuming your aspirin Active other medication Take 1 Dose 0 by mouth daily. Prevagen Active magnesium oxide (MAG-OX) Take 400 mg 0 400 mg tabletIndications: by mouth at Leg Cramps bedtime daily. Indications: Leg Cramps Active rosuvastatin (CRESTOR) 20 Take 20 mg by 0 mg tablet mouth at bedtime daily. Active omeprazole DR(+) Take 40 mg by 0 (PRILOSEC) 40 mg capsule mouth daily as needed. Active ondansetron (ZOFRAN) 4 mg Take 4 mg by 0 tablet mouth every 8 hours as needed for Nausea or Vomiting. Active acetaminophen (TYLENOL) Take 2 Tabs 0 325 mg tablet by mouth 7 every 6 hours as needed. Active traMADol (ULTRAM) 50 mg Take 1 Tab by 40 Tab 0 tabletIndications: Pain mouth every 6 7 hours as needed for Pain. Indications: PAIN Active milk of magnesia (CONC) Take 10 mL by 360 mL 1 2,400 mg/10 mL oral mouth twice 7 suspensionIndications: daily as constipation needed. Indications: CONSTIPATION Active Ostomy Supplies [facility] Use 10 Units 10 Each 99 as directed 7 as Needed (Every 4 days and as needed). Ostomy supplies and accessories. One month supply. Active meclizine (ANTIVERT) 12.5 Take 12.5 mg 0 mg tablet by mouth three times daily as needed. Active albuterol (PROAIR HFA, Inhale 2 0 VENTOLIN HFA, OR puffs by PROVENTIL HFA) 90 mouth into mcg/actuation inhaler the lungs twice daily. Shake well before use. Active budesonide/formoterol Inhale 2 0 (SYMBICORT HFA) 80-4.5 puffs by mcg/actuation inhalation mouth into the lungs twice daily. Active fluoxetine HCl Take by 0 (FLUOXETINE PO) mouth. Active fluticasone (FLOVENT HFA) Inhale 2 0 110 mcg/actuation inhaler puffs by mouth into the lungs twice daily. Active clopiDOGrel (PLAVIX) 75 Take 75 mg by 0 mg tablet mouth daily. Active Problems Problem Noted Date Scrotal swelling 03/03/2017 Overview: 3 week history of left scrotal swelling without pain or systemic symptoms. No enlargement with cough or Valsalva. 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 Plan: - No intervention necessary at this time - Keep regularly scheduled follow up appointment with CT scan in March 2017 Cancer of prostate 12/23/2016 Cancer Staging: Pathologic stage from 08/10/2016: Stage Unknown (T3a, NX, cM0, PSA: Unknown, [place] 7) - Signed by Ariadna Weaver APRN-NP on 03/06/2018 Bladder cancer 03/10/2015 Cancer Staging: Pathologic stage from 08/10/2016: Stage 0is (Tis, N0, cM0) - Signed by Ariadna Weaver APRN-NP on 03/06/2018 Overview: 02/10/2014: Incedental finding of CIS of the bladder on TURP specimen performed for obstructive LUTS 04/01/14: repeat TURP - no residual disease - No BCG, no recurrent lesions on 3 and 6 month follow up cystoscopies 02/16/15: Cystoscopy: Findings: Bladder wall: inflamed with 3 bladder lesions. 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 UCC (city controller) - No BCG or mitomycin (patient elected for observation) 06/09 and 08/09: Dr. Sr - cystoscopy - "red areas" Bothered by irritative voiding symptoms - no lasting benefit from Vesicare. -- 08/10/16 OPERATIVE PROCEDURE: Radical cystectomy with ileal conduit formation, Left inguinal hernia reduction. pTis N0, -- 09/02/16 stents removed, Cr 1.46, hgb 13.1, prealbumin 32 L ast Assessment & Plan: 82-year-old white male with a history of recurrent CIS of the bladder status post radical cystectomy and ileal conduit in July in 2016 for a pTis N0 MX urothelial cell carcinoma with an incidentally detected [place] 3+4 T3a prostate cancer. Plan: - RTC 6 months with CXR, CT abdomen/pelvis, labs Encounters Care Team Description Date Type Specialty Cory Amaro MD Malignant neoplasm of urinary bladder, unspecified site (HCC) (Primary Dx); Malignant neoplasm of prostate (HCC); Carcinoma in situ of prostate 04/13/2018 Office Visit Urology Cory Amaro MD 04/13/2018 Hospital Lab Encounter from Last 3 Months Immunizations Name Dates Previously Given Next Due Flu Vaccine=>2 YO 01/08/2015 (Historical) Pneumococcal Vaccine 02/08/2015 (23-Delfina Adult) Family History Medical History Relation Name Comments Arthritis-osteo Father Diabetes Father Arthritis-osteo Mother Thyroid Disease Mother Asthma Sister Relation Name Status Comments Father Mother Sister Social History Date Tobacco Use Types Packs/Day Years Used Quit: 03/27/1974 Former Smoker Cigarettes, 1.5 20 Cigars Smokeless Tobacco: Never Used Alcohol Use Drinks/Week oz/Week Comments No Sex Assigned at Date Recorded Not on file Industry Job Start Date Occupation Not on file Not on file Not on file Travel End Travel History Travel Start No recent travel history available. Last Filed Vital Signs Time Taken Vital Sign Reading 04/13/2018 1:41 PM NEEDLE CONTROL CHENILLER Blood Pressure 119/50 04/13/2018 1:41 PM NEEDLE CONTR[employer] CHENILLER Pulse 75 08/17/2016 9:00 AM CDT Temperature 36.8 C (98.3 F) - Respiratory Rate - 08/17/2016 9:00 AM CDT Oxygen Saturation 98% - Inhaled Oxygen - Concentration 04/13/2018 1:41 PM NEEDLE [employer]ILL[employer] Weight 94.8 kg (209 lb) 04/13/2018 1:41 PM NEEDLE [employer]ILL[employer] Height 167.6 cm (5' 6") 04/13/2018 1:41 PM NEEDLE [employer]ILL[employer] Body Mass Index 33.73 Plan of Treatment Health Maintenance Due Date Last Done Comments PHYSICAL (COMPREHENSIVE) 1941 EXAM DTAP/TDAP VACCINES (1 - 1952 Tdap) SHINGLES RECOMBINANT 1984 VACCINE (1 of 2) PNEUMONIA (PCV13/PPSV23) 02/09/2016 02/08/2015 VACCINES (2 of 2 - PCV13) INFLUENZA VACCINE 10/25/2017 01/08/2015, 01/06/2005, 01/01/2004, Additional history exists Implants Device Identifier Shelf Expiration Date Model / Serial / Lot Implanted Type Area Manufactur er Left Knee Knee 06/14/2019 [id number] / NA / NA Set Stent 75cm 7fr Conveyor System Operator .038in COOK 5mm Pigtail Curve Ureter GRP:GAVINO Implanted: Qty: 1 on 08/10/2016 by Cory Amaro MD Procedures Comments Procedure Name Priority Date/Time Associated Diagnosis PROSTATIC SPECIFIC Routine 04/13/2018 Prostate cancer (HCC) ANTIGEN-PSA 9:45 AM NEEDLE [employer] CBC Routine 04/13/2018 Malignant neoplasm of 9:45 AM NEEDLE CONTROL [employer]ILL[employer] urinary bladder, unspecified site (HCC) BASIC METABOLIC PANEL Routine 04/13/2018 Malignant neoplasm of 9:45 AM NEEDLE [employer]ILL[employer] urinary bladder, unspecified site (HCC) from Last 3 Months Results * CBC (04/13/2018 9:45 AM NEEDLE CONTROL CHENILLER) White Blood Cells 5.2 4.5 - 11.0 K/UL [facility] RBC 4.46 4.4 - 5.5 M/UL [facility] Hemoglobin 13.8 13.5 - 16.5 GM/DL [facility] Hematocrit 41.3 40 - 50 % [facility] MCV 92.7 80 - 100 FL [facility] MCH 30.9 26 - 34 PG [facility] MCHC 33.3 32.0 - 36.0 G/DL [facility] RDW 15.5 (H) 11 - 15 % [facility] Platelet Count 206 150 - 400 K/UL [facility] MPV 7.7 7 - 11 FL [facility] Specimen Blood Performing Organization Address City/State/Zipcode Phone Number [facility] [address] [place] [address] * PROSTATIC SPECIFIC ANTIGEN-PSA (04/13/2018 9:45 AM NEEDLE CONTROL [facility]ILL[facility]) Prostatic Specific 0.02 <6.01 NG/ML [facility] Antigen Comment: REFERENCE RANGES AGEPSA VALUE <50<=1.5 50-54 <=2.0 55-59 <=3.0 60-69 <=4.0 70+<=6.0 Specimen Blood Performing Organization Address City/State/Zipcode Phone Number [facility] [address] [place] [address] * BASIC METABOLIC PANEL (04/13/2018 9:45 AM NEEDLE CONTROL [facility]ILL[facility]) Sodium 139 137 - 147 MMOL/L [facility] Potassium 4.2 3.5 - 5.1 MMOL/L [facility] Chloride 107 98 - 110 MMOL/L [facility] CO2 25 21 - 30 MMOL/L [facility] Anion Gap 7 3 - 12 [facility] Glucose 123 (H) 70 - 100 MG/DL [facility] Blood Urea Nitrogen 26 (H) 7 - 25 MG/DL [facility] Creatinine 1.30 (H) 0.4 - 1.24 MG/DL [facility] Calcium 9.5 8.5 - 10.6 MG/DL [facility] eGFR Non 53 (L) >60 mL/min [facility] Comment: The eGFR is not validated for use in drug dosing adjustments.Continue to use estimated creatinine clearance per dosing reference text.Please contact the Clinical Pharmacist for questions. eGFR >60 >60 mL/min [facility] Comment: The eGFR is not validated for use in drug dosing adjustments.Continue to use estimated creatinine clearance per dosing reference text.Please contact the Clinical Pharmacist for questions. Specimen Blood Performing Organization Address City/[facility]/Zipcode Phone Number [facility] [address] [place] [address] from Last 3 Months Insurance Payer Benefit Subscriber ID Type Phone Address Plan / Group MEDICARE MEDICARE xxxxxxxxxxx Medicare PART A AND B [facility] AARP xxxxxxxxxxx PPO Advance Directives Patient has advance care planning documents, and code status on file. For more information, please contact: [facility] [address] [place] [address] Date Inactivated Comments Code Status Date Activated 08/17/2016 12:44 PM Full Code 08/10/2016 1:56 PM Provider has discussed Code Status Yes w/Patient or Family? 03/11/2015 1:35 PM Full Code 03/10/2015 3:38 PM Provider has discussed Code Status Yes w/Patient or Family?
--- OUTSIDE RECORDS SUMMARY | 2018-06-09 08:41 | XMS REPORT | Encounter Summary ---
Author Author [facility] Organization [facility] Address Unknown Phone Unavailable Care Team Providers Care Communications Equipment Supervisor Name Role Phone Cory Amaro MD Unavailable Min Lindsey MD PCP Karen Aguirre RN Unavailable Unavailable Alfredo Everett MD Unavailable Unavailable Jazmine Germain RN Unavailable Unavailable Kit Tian MD Unavailable Dinorah Khan RN Unavailable Unavailable Reason for Referral * Radiology Services (Routine) Referred By Contact Referred To Contact Status Reason Specialty Diagnoses / Procedures Cory Amaro MD [address] [place] [address] New Request Radiology Diagnoses Malignant neoplasm of urinary bladder, unspecified site (HCC) P rocedures CT ABD/PELV WO/W CONTRAST * Radiology Services (Routine) Referred By Contact Referred To Contact Status Reason Specialty Diagnoses / Procedures Cory Amaro MD [address] [place] [address] New Request Radiology Diagnoses Malignant neoplasm of prostate (HCC) P rocedures CT ABD/PELV WO/W CONTRAST Reason for Visit * Reason Comments Bladder Cancer Encounter Details Care Team Description Date Type Department Cory Amaro MD [address] [place] [address] Malignant neoplasm of urinary bladder, unspecified site (HCC ) (Primary Dx); Malignant neoplasm of prostate (HCC); Carcinoma in situ of prostate 04/13/2018 Office Visit [facility] Level [address]A [address] [place] [id number] Social History Date Tobacco Use Types Packs/Day Years Used Quit: 03/27/1974 Former Smoker Cigarettes, 1.5 20 Cigars Smokeless Tobacco: Never Used Alcohol Use Drinks/Week oz/Week Comments No Sex Assigned at Date Recorded Not on file Industry Job Start Date Occupation Not on file Not on file Not on file Travel End Travel History Travel Start No recent travel history available. as of this encounter Last Filed Vital Signs Time Taken Vital Sign Reading 04/13/2018 1:41 PM PRESIDENT [employer] FOUNDER Blood Pressure 119/50 04/13/2018 1:41 PM PRESIDENT & FOUNDER Pulse 75 - Temperature - - Respiratory Rate - - Oxygen Saturation - - Inhaled Oxygen - Concentration 04/13/2018 1:41 PM PRESIDENT & FOUNDER Weight 94.8 kg (209 lb) 04/13/2018 1:41 PM PRESIDENT & FOUNDER Height 167.6 cm (5' 6") 04/13/2018 1:41 PM PRESIDENT & FOUNDER Body Mass Index 33.73 in this encounter Functional Status Date of Assessment Functional Status Response 08/17/2016 Does the patient have a hearing impairment: No 08/17/2016 Does the patient have a visual impairment: No 08/17/2016 Does the patient have impaired ambulation: No 08/17/2016 Does the patient have an activity of daily living No (ADL) impairment: 08/17/2016 Does the patient have an instrumental activity of No daily living (IADL) impairment: Date of Assessment Cognitive Status Response 08/17/2016 Does the patient have a cognitive impairment: No as of this encounter Progress Notes * Cory Amaro MD - 04/13/2018 1:45 PM PRESIDENT & FOUNDER Date of Service: 04/13/2018 Subjective: Leonid Kennedy Jr. is a 82 y.o. male here for follow up. History of Present [id number] white male with a history of recurrent CIS of the bladder status post radical cystectomy and ileal conduit in July in 2016 for a pTis N0 MX urothelial cell carcinoma with an incidentally detected [place] 3+4 T3a prostate cancer. Patient returns today in follow-up. He has no complaints. He denies any significant stomal issues he denies blood or drainage per urethra. PSA is 0.02 today Past Medical History: Diagnosis Date Arthritis Bladder cancer (HCC) Cancer of prostate (HCC) Coronary artery disease Disorder of thyroid gland Hearing reduced Heart disease Hyperlipidemia Hypothyroidism Myocardial infarction (HCC) 1999 Past Surgical History: Procedure Laterality Date CORONARY ARTERY BYPASS GRAFT 1999 x 1 KNEE REPLACEMENT Left 2012 PROSTATECTOMY 2014 partial CYSTOSCOPY 03/10/2015 Blue light cystoscopy and TURBT [place] CYSTOURETHROSCOPY W/DEST &/RMVL MED BLADDER ERNIE N/A 09/15/2015 BLUE LIGHT CYSTOSCOPY, TRANSURETHRAL RESECTION BLADDER TUMOR, BILATERAL RETROGRADE PYELOGRAMS performed by Cory Amaro MD at Main [facility]/ Periop UT CYSTOURETHROSCOPY W/DEST &/RMVL MED BLADDER ERNIE N/A 07/07/2016 BLUE LIGHT CYSTOSCOPY, TRANSURETHRAL RESECTION OF BLADDER TUMOR, BILATERAL RETROGRADE PYELOGRAMS performed by Cory Amaro MD at [facility]/ Periop UT CSTC COMPL W/CONDUIT/SIGMOID BLDR PEL LMPHADEC N/A 08/10/2016 RADICAL CYSTECTOMY WITH ILEAL CONDUIT AND BILATERAL PELVIC LYMPH NODE DISSECTION. performed by Cory Amaro MD at [facility]/Periop COLONOSCOPY HX HEART CATHETERIZATION 12 heart caths-5 stents, most recent 2011 Family History Problem Relation Age of Onset Arthritis-osteo Mother Thyroid Disease Mother Diabetes Father Arthritis-osteo Father Asthma Sister Review of Systems Constitutional: Negative. Negative for activity change, appetite change, chills , fatigue, fever and unexpected weight change. HENT: Negative for congestion, mouth sores and sinus pressure. Respiratory: Negative for apnea, cough, chest tightness and shortness of breath. Cardiovascular: Negative for chest pain, palpitations and leg swelling. Gastrointestinal: Negative for abdominal pain, blood in stool, constipation, diarrhea, nausea and vomiting. Genitourinary: Negative for difficulty urinating, dysuria, enuresis, flank pain , frequency, genital sores, hematuria and urgency. Musculoskeletal: Negative for arthralgias, back pain, gait problem and myalgias. Skin: Negative for rash and wound. Neurological: Negative for dizziness, tremors, seizures, syncope, weakness, light-headedness, numbness and headaches. Hematological: Does not bruise/bleed easily. Psychiatric/Behavioral: Negative for decreased concentration and dysphoric mood. The patient is not nervous/anxious. Objective: acetaminophen (TYLENOL) 325 mg tablet Take 2 Tabs by mouth every 6 hours as needed. albuterol (PROAIR HFA, VENTOLIN HFA, OR PROVENTIL HFA) 90 mcg/actuation inhaler Inhale 2 puffs by mouth into the lungs twice daily. Shake well before use. aspirin EC 81 mg tablet Take 1 Tab by mouth twice weekly. Monday and Monday Wait 5 days before resuming your aspirin budesonide/formoterol (SYMBICORT HFA) 80-4.5 mcg/actuation inhalation Inhale 2 puffs by mouth into the lungs twice daily. calcium carbonate/vitamin D-3 (OSCAL-500+D) 1250 mg/200 unit tablet Take 1 Tab by mouth twice daily with meals. Calcium Carb 1250mg delivers 500mg elemental Ca clopiDOGrel (PLAVIX) 75 mg tablet Take 75 mg by mouth daily. diltiazem (CARDIZEM) 90 mg tablet Take 90 mg by mouth at bedtime daily. docusate (COLACE) 100 mg capsule Take 100 mg by mouth daily. fish oil /omega-3 fatty acids (SEA-OMEGA) 340/1000 mg capsule Take 1 Cap by mouth twice daily. fluoxetine HCl (FLUOXETINE PO) Take by mouth. fluticasone (FLOVENT HFA) 110 mcg/actuation inhaler Inhale 2 puffs by mouth into the lungs twice daily. gemfibrozil (LOPID) 600 mg tablet [...] 20 mg by mouth at bedtime daily. traMADol (ULTRAM) 50 mg tablet Take 1 Tab by mouth every 6 hours as needed for Pain. Indications: PAIN traZODone (DESYREL) 150 mg tablet Take 300 mg by mouth at bedtime daily. vitamins, multiple cap Take 1 Cap by mouth daily. Vitals: 04/13/18 1341 BP: 119/50 Pulse: 75 Weight: 94.8 kg (209 lb) Height: 167.6 cm (66") Body mass index is 33.73 kg/m. Physical Exam Constitutional: He is oriented to person, place, and time. He appears well- developed and well-nourished. HENT: Head: Normocephalic and atraumatic. Eyes: Conjunctivae and EOM are normal. No scleral icterus. Neck: No JVD present. Cardiovascular: Normal rate, regular rhythm, normal heart sounds and intact distal pulses. Pulmonary/Chest: Effort normal and breath sounds normal. No respiratory distress. Abdominal: Soft. He exhibits no distension and no mass. There is no tenderness. Ileal conduit draining clear yellow urine. Small parastomal hernia at the superior portion Musculoskeletal: He exhibits no edema or tenderness. Lymphadenopathy: He has no cervical adenopathy. Neurological: He is alert and oriented to person, place, and time. Coordination normal. Skin: No rash noted. No erythema. Psychiatric: He has a normal mood and affect. His behavior is normal. Thought content normal. Assessment and Plan: Problem Bladder Cancer (Hcc) 02/10/2014: Incedental finding of CIS of the bladder on TURP specimen performed for obstructive LUTS 04/01/14: repeat TURP - no residual disease - No BCG, no recurrent lesions on 3 and 6 month follow up cystoscopies 02/16/15: Cystoscopy: Findings: Bladder wall: inflamed with 3 bladder lesions. 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 Sr - cystoscopy - "red areas" Bothered by irritative voiding symptoms - no lasting benefit from Vesicare. -- 08/10/16 OPERATIVE PROCEDURE: Radical cystectomy with ileal conduit formation , Left inguinal hernia reduction. pTis N0, -- 09/02/16 stents removed, Cr 1.46, hgb 13.1, prealbumin 32 Bladder cancer (HCC) 82-year-old white male with a history of recurrent CIS of the bladder status post radical cystectomy and ileal conduit in July in 2016 for a pTis N0 MX urothelial cell carcinoma with an incidentally detected [place] 3+4 T3a prostate cancer. Plan: - RTC 6 months with CXR, CT abdomen/pelvis, labs Bridger Delgado MD PGY-3 Urology ATTESTATION I personally performed the stevens portions of the E/M visit, discussed case with resident and concur with resident documentation of history, physical exam, assessment, and treatment plan unless otherwise noted. Staff name: Cory Amaro MD Date: 04/14/2018 IDENT & FOUNDER in this encounter Plan of Treatment Order Schedule Name Priority Associated Diagnoses Expected: 10/11/2018 (Approximate), Expires: 10/12/2019 CBC Routine Malignant neoplasm of prostate (HCC) Expected: 10/11/2018 (Approximate), Expires: 10/12/2019 BASIC METABOLIC PANEL Routine Malignant neoplasm of prostate (HCC) Expected: 10/11/2018 (Approximate), Expires: 10/12/2019 PROSTATIC SPECIFIC ANTIGEN-PSA Routine Carcinoma in situ of prostate Malignant neoplasm of urinary bladder, unspecified site (HCC) Expected: 10/11/2018 (Approximate), Expires: 11/09/2018 CHEST 2 VIEWS Routine Malignant neoplasm of prostate (HCC) Expected: 10/11/2018 (Approximate), Expires: 10/12/2019 CT ABD/PELV WO/W CONTRAST Routine Malignant neoplasm of prostate (HCC) Expected: 10/10/2018 (Approximate), Expires: 11/09/2018 CT ABD/PELV WO/W CONTRAST Routine Malignant neoplasm of urinary bladder, unspecified site (HCC) Expected: 10/10/2018 (Approximate), Expires: 11/09/2018 CHEST 2 VIEWS Routine Malignant neoplasm of urinary bladder, unspecified site (HCC) Expected: 10/10/2018 (Approximate), Expires: 04/13/2019 BASIC METABOLIC PANEL Routine Malignant neoplasm of urinary bladder, unspecified site (HCC) Expected: 10/11/2018 (Approximate), Expires: 07/12/2019 VITAMIN B12 Routine Malignant neoplasm of urinary bladder, unspecified site (HCC) Expected: 10/10/2018 (Approximate), Expires: 04/13/2019 PROSTATIC SPECIFIC ANTIGEN-PSA Routine Malignant neoplasm of prostate (HCC) as of this encounter Visit Diagnoses Diagnosis Malignant neoplasm of urinary bladder, unspecified site (HCC) - Primary Malignant neoplasm of prostate (HCC) Malignant neoplasm of prostate 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 Plan: - RTC 6 months with CXR, CT abdomen/pelvis, labs IDENT & FOUNDER in this encounter
--- OUTSIDE RECORDS SUMMARY | 2018-06-09 08:41 | XMS REPORT | Encounter Summary ---
Author Author [facility] Organization [facility] Address Unknown Phone Unavailable Care Team Providers Care Finishing Supervisor Plastic Sheets Name Role Phone Cory Amaro MD Unavailable Min Lindsey MD PCP Karen Aguirre RN Unavailable Unavailable Alfredo Everett MD Unavailable Unavailable Jazmine Germain RN Unavailable Unavailable Kit Tian MD Unavailable Dinorah Khan RN Unavailable Unavailable Encounter Details Care Team Description Date Type Department Cory Amaro MD [address] [facility] [place] [address] 04/13/2018 Hospital Clinlab Encounter [facility] [address] [place] [address] Social History Date Tobacco Use Types Packs/Day [...] travel history available. as of this encounter Functional Status Date of Assessment [...] cognitive impairment: No as of this encounter Medications at Time of Discharge Start Date End Date Medication Sig Dispensed Refills 08/17/2016 acetaminophen (TYLENOL) Take 2 Tabs 0 325 mg tablet by mouth every 6 hours as needed. albuterol (PROAIR HFA, Inhale 2 0 VENTOLIN HFA, OR puffs by PROVENTIL HFA) 90 mouth into mcg/actuation inhaler the lungs twice daily. Shake well before use. 09/17/2015 aspirin EC 81 mg tablet Take 1 Tab by 90 Tab 3 mouth twice weekly. Monday and Monday Wait 5 days before resuming your aspirin budesonide/formoterol Inhale 2 0 (SYMBICORT HFA) 80-4.5 puffs by mcg/actuation inhalation mouth into the lungs twice daily. calcium carbonate/vitamin Take 1 Tab by 0 D-3 (OSCAL-500+D) 1250 mouth twice mg/200 unit tablet daily with meals. Calcium Carb 1250mg delivers 500mg elemental Ca clopiDOGrel (PLAVIX) 75 Take 75 mg by 0 mg tablet mouth daily. diltiazem (CARDIZEM) 90 Take 90 mg by 0 mg tabletIndications: Leg mouth at cramps bedtime daily. docusate (COLACE) 100 mg Take 100 mg 0 capsule by mouth daily. fish oil /omega-3 fatty Take 1 Cap by 0 acids (SEA-OMEGA) mouth twice 340/1000 mg capsule daily. fluoxetine HCl Take by 0 (FLUOXETINE PO) mouth. fluticasone (FLOVENT HFA) Inhale 2 0 110 mcg/actuation inhaler puffs by mouth into the lungs twice daily. gemfibrozil (LOPID) 600 Take 600 mg 0 mg tablet by mouth daily. levothyroxine (SYNTHROID) Take 50 mcg 0 50 mcg tablet by mouth daily. magnesium oxide (MAG-OX) Take 400 mg 0 400 mg tabletIndications: by mouth at Leg Cramps bedtime daily. Indications: Leg Cramps meclizine (ANTIVERT) 12.5 Take 12.5 mg 0 mg tablet by mouth three times daily as needed. 08/17/2016 milk of magnesia (CONC) Take 10 mL by 360 mL 1 2,400 mg/10 mL oral mouth twice suspensionIndications: daily as constipation needed. Indications: CONSTIPATION omeprazole DR(+) Take 40 mg by 0 (PRILOSEC) 40 mg capsule mouth daily as needed. ondansetron (ZOFRAN) 4 mg Take 4 mg by 0 tablet mouth every 8 hours as needed for Nausea or Vomiting. 08/17/2016 Ostomy Supplies misc Use 10 Units 10 Each 99 as directed as Needed (Every 4 days and as needed). Ostomy supplies and accessories. One month supply. other medication Take 1 Dose 0 by mouth daily. Prevagen pramipexole (MIRAPEX) Take by 0 0.25 mg tablet mouth twice daily. 1 tablet in the morning and 2 tablets at bedtime rosuvastatin (CRESTOR) 20 Take 20 mg by 0 mg tablet mouth at bedtime daily. 08/17/2016 traMADol (ULTRAM) 50 mg Take 1 Tab by 40 Tab 0 tabletIndications: Pain mouth every 6 hours as needed for Pain. Indications: PAIN traZODone (DESYREL) 150 Take 300 mg 0 mg tablet by mouth at bedtime daily. vitamins, multiple cap Take 1 Cap by 0 mouth daily. as of this encounter Plan of Treatment Not on fileas of this encounter Procedures Comments Procedure Name Priority Date/Time Associated Diagnosis CBC Routine 04/13/2018 Malignant neoplasm of 9:45 AM END PACKER urinary bladder, unspecified site (HCC) PROSTATIC SPECIFIC Routine 04/13/2018 Prostate cancer (HCC) ANTIGEN-PSA 9:45 AM END PACKER BASIC METABOLIC PANEL Routine 04/13/2018 Malignant neoplasm of 9:45 AM END PACKER urinary bladder, unspecified site (HCC) in this encounter Results * PROSTATIC SPECIFIC ANTIGEN-PSA (04/13/2018 9:45 AM END PACKER) Prostatic Specific 0.02 <6.01 NG/ML [facility] Antigen Comment: REFERENCE RANGES AGEPSA VALUE <50<=1.5 50-54 <=2.0 55-59 <=3.0 60-69 <=4.0 70+<=6.0 Specimen Blood Performing Organization Address City/State/Zipcode Phone Number [facility] [address] [place] [address] * CBC (04/13/2018 9:45 AM END PACKER) White Blood Cells 5.2 4.5 - 11.0 [...] MAIN LAB Specimen Blood Performing Organization Address City/[facility]/Zipcode Phone Number [facility] [address] [place] [address] * BASIC METABOLIC PANEL (04/13/2018 9:45 AM END PACKER) Sodium 139 137 - 147 MMOL/L [facility] [...] for questions. Specimen Blood Performing Organization Address City/[facility]/Zipcode Phone Number [facility] [address] [place] [address] in this encounter Visit Diagnoses Diagnosis Malignant neoplasm of urinary bladder, unspecified site (HCC) Prostate cancer (HCC) Malignant neoplasm of prostate in this encounter
--- NOTE | 2018-06-09 09:15 | NUR ---
Pt's urostomy changed with pt's own supplies from home.
--- NOTE | 2018-06-09 10:11 | ED GU-Male ---
General Chief Complaint: Catheter/Drain/Tube Problems Stated Complaint: OSTOMY BAG LEAKING Nursing Triage Note: Ambulatory to rm 10. Pt c/o urostomy leaking. Pt's normally changes for pt, however is gone for the day. No other health complaints from pt. Source: patient Exam Limitations: no limitations History of Present Illness Date Seen by Provider: Jun 09, 2018 Time Seen by Provider: 10:07 Initial Comments The patient is an 82-year-old white male known to me for many years. He reports that his is out of the house and his ureterostomy bag began to leak. He was unable to see it well enough to replace the back. 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 Timing/Duration: this morning Allergies and Home Medications Allergies Coded Allergies: NKANo Known Allergies (Verified Allergy, Mild, 11/24/11) Uncoded Allergies: BEE STINGS (Allergy, Severe, SOA/HIVES, 11/01/10) Home Medications Albuterol Sulfate 2.5 Mg/0.5 Ml Vial.neb, 2.5 MG IH Q4H PRN for SHORTNESS OF BREATH Prescribed by: YAW CELESTE on 02/17/18 1818 Aspirin 81 Mg Tablet.dr, 81 MG PO TuSa, (Reported) Calcium Carbonate/Vitamin D3 1 Each Tablet, 1 TAB PO BID, (Reported) Cephalexin 500 Mg Capsule, 500 MG PO TID Prescribed by: LOUISA ARBOLEDA on 09/22/17 1222 Cyclobenzaprine HCl 10 Mg Tablet, 10 MG PO BID PRN for MUSCLE SPASMS, (Reported) Diltiazem HCl 90 Mg Tablet, 45 MG PO HS, (Reported) TAKES 1/2 OF A (90 MG) TABLET / TAKES FOR LEG CRAMPS Diphenhydramine HCl 25 Mg Capsule, 25 MG PO BID, (Reported) Docusate Sodium 100 Mg Capsule, 100 MG PO DAILY, (Reported) Docusate Sodium 100 Mg Capsule, 200 MG PO HS, (Reported) TAKES 2 (100 MG) CAPSULES Furosemide 40 Mg Tablet, 40 MG PO DAILY PRN for PITTING EDEMA, (Reported) Gemfibrozil 600 Mg Tablet, 600 MG PO DAILY, (Reported) Hydrocodone Bit/Acetaminophen 1 Each Tablet, 1 TAB PO EVERY 4-6 HOURS PRN for PAIN, (Reported) Levothyroxine Sodium 50 Mcg Tablet, 50 MCG PO DAILY, (Reported) Mirabegron 50 Mg Tab.er.24h, 50 MG PO DAILY@1200, (Reported) Multivitamin 1 Each Tablet, 1 TAB PO DAILY, (Reported) Nitroglycerin 0.4 Mg Tab.subl, 0.4 MG SL UD PRN for CHEST PAIN, (Reported) 1 TAB EVERY 5 MINUTES UP TO 3 DOSES WITHIN 15 MINUTES; CALL 911 IF NO RELIEF Nitroglycerin 0.4 Mg Tab.subl, 0.4 MG SL when necessary Prescribed by: YULIET PETER on 06/07/16 1159 [place] 3 Polyunsat Fatty Acids 1,000 Mg Cap, 2,000 MG PO DAILY, (Reported) Oseltamivir Phosphate 75 Mg Cap, 75 MG PO BID Prescribed by: ASHLY VASQUEZ on 05/02/17 1354 Potassium Gluconate 90 Mg Tablet, 90 MG PO UD, (Reported) ONLY TAKES WITH FUROSEMIDE Pramipexole Di-HCl 0.25 Mg Tablet, 0.25 MG PO DAILY, (Reported) Pramipexole Di-HCl 0.25 Mg Tablet, 0.5 MG PO HS, (Reported) TAKES 2 (0.25 MG) TABLETS Rosuvastatin Calcium 20 Mg Tablet, 20 MG PO HS, (Reported) Solifenacin Succinate 5 Mg Tablet, 5 MG PO DAILY@1200, (Reported) Tamsulosin HCl 0.4 Mg Cap.er.24h, 0.4 MG PO HS, (Reported) Trazodone HCl 150 Mg Tablet, 150 MG PO HS PRN for SLEEP, (Reported) [Antivert] , 25 MG 4 times a day PRN for Dizziness Prescribed by: YULIET PETER on 08/29/16 1500 [Prevagen] , 1 TAB PO DAILY, (Reported) Patient Home Medication List Home Medication List Reviewed: Yes Review of Systems Review of Systems Constitutional: no symptoms reported Past Hmsawnk-Luvzta-Wcehko Hx Patient Social History Alcohol Use: Denies Use Recreational Drug Use: No Former Smoker, Quit: Jun 07, 1974 2nd Hand Smoke Exposure: No Recent Foreign Travel: No Contact w/Someone Who Travel: No Recent Infectious Disease Expo: No Recent Hopitalizations: No Physical Abuse: No Sexual Abuse: No Immunizations Up To Date Tetanus Booster (TDap): Unknown Date of Pneumonia Vaccine: Feb 03, 2015 Date of Influenza Vaccine: Jan 13, 2016 Seasonal Allergies Seasonal Allergies: Yes Past Medical History Surgeries: Yes (LEFT WRIST, LEFT KNEE SCOPE, TOTAL LEFT KNEE, HEMORRHOIDS,TURP ) Abdominal, Coronary Stent, Joint Replacement Respiratory: No Currently Using CPAP: No Currently Using BIPAP: No Cardiac: Yes (STENTS X5) Coronary Artery Disease, Heart Attack, High Cholesterol Neurological: No Reproductive Disorders: No Sexually Transmitted Disease: No HIV/AIDS: No Prostate Problems Gastrointestinal: Yes (colostomy) Obstructive Bowel Musculoskeletal: Yes Arthritis Endocrine: No Hearing Impairment: Denies, Hearing Aide Right, Hearing Aide Left Cancer: Yes (NOSE) Bladder, Prostate Psychosocial: No Integumentary: No Blood Disorders: No Adverse Reaction/Blood Tranf: No Family Medical History Arthritis 19 FATHER 19 MOTHER Diabetes mellitus 19 FATHER Myocardial infarction 19 FATHER 19 MOTHER Respiratory disorder G8 SISTER No Family History of: AIDS [place]'s disease Alcoholism Alzheimer's disease Cancer of mouth Colon cancer Completed stroke Dementia Kidney disease Parkinson's disease Prostate cancer Psychosocial problem Seizure disorder Severe allergy Thyroid disease Tuberculosis No Pertinent Family Hx Physical Exam Vital Signs Vital Signs - First Documented 06/09/18 09:05 Temp 96.8 Pulse 68 Resp 18 B/P (MAP) 138/73 (94) Pulse Ox 98 O2 Delivery Room Air Capillary Refill : Less Than 3 Seconds Height, Weight, BMI Height: 5'7.00" Weight: 195lbs. 0oz. 88.080787ur; 33.1 BMI Method:Stated General Appearance: WD/WN, no apparent distress Cardiovascular: normal peripheral pulses, regular rate, rhythm, no edema, no gallop, no JVD, no murmur Respiratory: chest non-tender, lungs clear, normal breath sounds, no respiratory distress, no accessory muscle use Gastrointestinal: other (the replaced bag is capturing the urine and there is no evidence of leaking at this time) Procedures/Interventions Suture Size: 4-0 Progress/Results/Core Measures Suspected Sepsis Recent Fever Within 48 Hours: No Infection Criteria Present: None New/Unexplained Altered Menta: No Sepsis Screen: No Definite Risk SIRS Temperature:96.8 Pulse: 68 Respiratory Rate: 18 Blood Pressure 138 /73 Mean: 94 Results/Orders Vital Signs/I&O 06/09/18 09:05 Temp 96.8 Pulse 68 Resp 18 B/P (MAP) 138/73 (94) Pulse Ox 98 O2 Delivery Room Air Capillary Refill : Less Than 3 Seconds Blood Pressure Mean: 94 Departure Impression Primary Impression: right abdominal ureterostomy with a collection bag leak Disposition: 01 HOME, SELF-CARE Condition: Improved Departure-Patient Inst. Decision time for Depature: 10:10 Referrals: BLAKE BOYCE MD (PCP/Family) Primary Care Physician Add. Discharge Instructions: All discharge instructions reviewed with patient and/or family. Voiced understanding. Resume usual activities YULIET PETER MD Jun 09, 2018 10:11
[2018-06-09 10:15] VITALS: BP 138/73
== END 2018-06-09 10:15 | disposition home or self-care (01) ==
LOC: EDUNIT# 08:35 → ER 08:36
DX: K94.03 Colostomy malfunction (principal); I25.10 Atherosclerotic heart disease of native coronary artery without angina pectoris; I25.2 Old myocardial infarction; E78.00 Pure hypercholesterolemia, unspecified; Z85.51 Personal history of malignant neoplasm of bladder; Z85.46 Personal history of malignant neoplasm of prostate; Z82.49 Family history of ischemic heart disease and other diseases of the circulatory system; Z87.19 Personal history of other diseases of the digestive system; Z79.51 Long term (current) use of inhaled steroids; Z79.82 Long term (current) use of aspirin; Z87.891 Personal history of nicotine dependence; Z95.5 Presence of coronary angioplasty implant and graft; Z98.890 Other specified postprocedural states; Z96.651 Presence of right artificial knee joint
CPT/HCPCS: 99281

== ENCOUNTER 2018-06-29 11:18 | Outpatient (RCR) | payer MEDICARE | END 2018-07-01 | disposition home or self-care (01) | LOC: CR 11:18 | PROVIDERS: ATTEND Internal Medicine Interventional Cardiology | DX: Z48.812 Encounter for surgical aftercare following surgery on the circulatory system (principal); Z95.5 Presence of coronary angioplasty implant and graft | CPT/HCPCS: 93798 ==

== ENCOUNTER 2018-08-01 10:58 | Outpatient (RCR) | payer MEDICARE | END 2018-10-02 | disposition home or self-care (01) | LOC: CR 10:58 | PROVIDERS: ATTEND Internal Medicine Interventional Cardiology | DX: Z48.812 Encounter for surgical aftercare following surgery on the circulatory system (principal); Z95.5 Presence of coronary angioplasty implant and graft | CPT/HCPCS: 93798 ==

== ENCOUNTER 2018-10-08 10:31 | Outpatient (RCR) | payer MEDICARE | END 2018-10-12 | disposition home or self-care (01) | LOC: CR3 10:31 | PROVIDERS: ATTEND Internal Medicine Interventional Cardiology | DX: Z29.8 Encounter for other specified prophylactic measures (principal) ==

== ENCOUNTER 2018-10-15 12:57 | Outpatient (RCR) | payer MEDICARE ==
[~2018-10-15 12:57] MED LIST changes: -ROSU20TA31 PO; +ROSU20TA32 PO
== END 2018-11-14 | disposition home or self-care (01) ==
LOC: CR3 12:57
PROVIDERS: ATTEND Internal Medicine Interventional Cardiology
DX: Z29.8 Encounter for other specified prophylactic measures (principal)

== ENCOUNTER → 2018-10-23 | Outpatient (CLI) | payer MEDICARE ==
[~2018-10-23] MED LIST changes: +ROSU20TA31 PO; -ROSU20TA32 PO
--- NOTE | 2018-10-23 17:19 | Diagnostic Imaging Report ---
INDICATION: Right ankle pain. TIME OF EXAM: 03:05 p.m. EXAMINATION: Three views of the right ankle were obtained. FINDINGS: Ankle alignment is normal. Ankle mortise is well-maintained. Talar dome is smooth. Well-corticated osseous density along the anterior dorsal aspect of the talus is seen, likely old avulsion. There are small plantar and posterior calcaneal spurs. No acute fractures are seen. IMPRESSION: Chronic changes. No acute bony abnormality is detected. Dictated by: Dictated on workstation # [id number]
== END ==
LOC: RAD 14:53
DX: M25.571 Pain in right ankle and joints of right foot (principal)
CPT/HCPCS: 73610

== ENCOUNTER 2018-12-12 11:05 | Emergency (ER) | payer MEDICARE ==
[~2018-12-12] VITALS: Ht 172 cm; Wt 89.0 kg
[~2018-12-12 11:05] MED LIST changes: -ROSU20TA31 PO; +ROSU20TA32 PO
--- NOTE | 2018-12-12 11:28 | NUR ---
PT BACK OUT IN WAITING ROOM. NOTIFIED HIM TO LET THE REGISTRATION DESK IF ANYTHING CHANGES. DENIES PAIN AT THIS TIME. EKG SHOWN TO DR LOPEZ ET DR LOPEZ OK WITH PT BEING IN THE WAITING ROOM AT THIS TIME. PT NOTIFIED OF BUSY ER ET POSSIBLE LONG WAIT TIME.
[2018-12-12] MEDS ORDERED: ASPIRIN 81 MG CHEW (CHILDREN'S ASA) PO ONE (12:30)
[2018-12-12 12:55] LABS: BASOPHILS % (AUTO) 0 % (0-10); EOSINOPHILS # (AUTO) 0.4 10^3/uL (0.0-0.3); EOSINOPHILS % (AUTO) 6 % (0-10); HEMATOCRIT 48 % (40-54); HEMOGLOBIN 16.1 G/DL (13.3-17.7); LYMPHOCYTES # (AUTO) 0.3 X 10^3 (1.0-4.0); LYMPHOCYTES % (AUTO) 4 % (12-44); MEAN CORPUSCULAR HEMOGLOBIN 31 PG (25-34); MEAN CORPUSCULAR HGB CONC 33 G/DL (32-36); MEAN CORPUSCULAR VOLUME 93 FL (80-99); MEAN PLATELET VOLUME 9.6 FL (7.4-10.4); MONOCYTES # (AUTO) 0.2 X 10^3 (0.0-1.0); MONOCYTES % (AUTO) 3 % (0-12); NEUTROPHILS # (AUTO) 6.2 X 10^3 (1.8-7.8); NEUTROPHILS % (AUTO) 87 % (42-75); PLATELET COUNT 206 10^3/uL (130-400); RED CELL DISTRIBUTION WIDTH 14.9 % (10.0-14.5); WHITE BLOOD COUNT 7.1 10^3/uL (4.3-11.0)
[2018-12-12 13:07] LABS: PROTHROMBIN TIME PATIENT 13.7 SEC (12.2-14.7)
[2018-12-12 13:16] LABS: ALANINE AMINOTRANSFERASE 20 U/L (0-55); ALBUMIN 4.8 GM/DL (3.2-4.5); ALKALINE PHOSPHATASE 82 U/L (40-136); BILIRUBIN,TOTAL 0.8 MG/DL (0.1-1.0); BUN/CREATININE RATIO 12; CALCIUM 9.9 MG/DL (8.5-10.1); CARBON DIOXIDE 23 MMOL/L (21-32); CHLORIDE 101 MMOL/L (98-107); CREATININE SERUM 1.78 MG/DL (0.60-1.30); GFR ESTIMATED 37; GLUCOSE 142 MG/DL (70-105); MAGNESIUM 2.3 MG/DL (1.6-2.4); POTASSIUM 4.4 MMOL/L (3.6-5.0); SODIUM 137 MMOL/L (135-145); TOTAL PROTEIN 8.5 GM/DL (6.4-8.2)
--- NOTE | 2018-12-12 13:17 | ED Chest Pain ---
General Chief Complaint: Chest Pain Stated Complaint: CHEST DISCOMFORT Nursing Triage Note: CHEST PAIN X2 DAYS THAT RADIATES FROM LEFT TO RIGHT CHEST. STATES HE HAS BEEN WORKING OUTSIDE THESE PAST TWO DAYS. DENIES PAIN AT THIS TIME. Nursing Sepsis Screen: No Definite Risk Source: patient Exam Limitations: no limitations (YAW SILVA MED STUDENT) History of Present Illness Date Seen by Provider: Dec 12, 2018 Time Seen by Provider: 12:55 Initial Comments The patient is a WD/WN 83 y/o male who is here with a chief complaint of chest pain. He states that the pain began 2-3 days ago. He describes the pain as 3/10 intermittent pain that migrates from side to side in his upper chest. He denies any loss of sensation or tingling in his extremities. He cannot recall any exacerbating factors or anything that mitigates the pain. He also reports a recent illness which he described as a "GI bug". He admits to diarrhea last night that resolved this morning. He denies any shortness of breath, nausea, vomiting, or fevers. Timing/Duration: 2-3 days Severity/Quality: mild Location: central, shoulder Prior CP/Workup: cardiac cath, heart attack Associated Symptoms: No nausea/vomiting, No shortness of breath (YAW SILVA MED STUDENT) Timing/Duration: 2-3 days Severity/Quality: mild, sharp Location: central Radiation: shoulders Prior CP/Workup: cardiac cath, heart attack ASA po SITE MEDICAL DIRECTOR: Yes NTG SL SITE MEDICAL DIRECTOR: No Associated Symptoms: No back pain, No fever/chills, No nausea/vomiting, No shortness of breath (TAVIA LOPEZ MD) Allergies and Home Medications Allergies Coded Allergies: NKANo Known Allergies (Verified Allergy, Mild, 11/24/11) Uncoded Allergies: BEE STINGS (Allergy, Severe, SOA/HIVES, 11/01/10) Home Medications Albuterol Sulfate 2.5 Mg/0.5 Ml Vial.neb, 2.5 MG IH Q4H PRN for SHORTNESS OF BREATH Prescribed by: YAW CELESTE on 02/17/181817 Aspirin 81 Mg Tablet.dr, 81 MG PO [place], (Reported) Calcium Carbonate/Vitamin D3 1 Each Tablet, 1 TAB PO BID, (Reported) Cephalexin 500 Mg Capsule, 500 MG PO TID Prescribed by: LOUISA ARBOLEDA on 09/22/17 1222 Cyclobenzaprine HCl 10 Mg Tablet, 10 MG PO BID PRN for MUSCLE SPASMS, (Reported) Diltiazem HCl 90 Mg Tablet, 45 MG PO HS, (Reported) TAKES 1/2 OF A (90 MG) TABLET / TAKES FOR LEG CRAMPS Diphenhydramine HCl 25 Mg Capsule, 25 MG PO BID, (Reported) Docusate Sodium 100 Mg Capsule, 100 MG PO DAILY, (Reported) Docusate Sodium 100 Mg Capsule, 200 MG PO HS, (Reported) TAKES 2 (100 MG) CAPSULES Furosemide 40 Mg Tablet, 40 MG PO DAILY PRN for PITTING EDEMA, (Reported) Gemfibrozil 600 Mg Tablet, 600 MG PO DAILY, (Reported) Hydrocodone Bit/Acetaminophen 1 Each Tablet, 1 TAB PO EVERY 4-6 HOURS PRN for PAIN, (Reported) Levothyroxine Sodium 50 Mcg Tablet, 50 MCG PO DAILY, (Reported) Mirabegron 50 Mg Tab.er.24h, 50 MG PO DAILY@1200, (Reported) Multivitamin 1 Each Tablet, 1 TAB PO DAILY, (Reported) Nitroglycerin 0.4 Mg Tab.subl, 0.4 MG SL UD PRN for CHEST PAIN, (Reported) 1 TAB EVERY 5 MINUTES UP TO 3 DOSES WITHIN 15 MINUTES; CALL 911 IF NO RELIEF Nitroglycerin 0.4 Mg Tab.subl, 0.4 MG SL when necessary Prescribed by: YULIET PETER on 06/07/16 1159 [place] 3 Polyunsat Fatty Acids 1,000 Mg Cap, 2,000 MG PO DAILY, (Reported) Oseltamivir Phosphate 75 Mg Cap, 75 MG PO BID Prescribed by: ASHLY VASQUEZ on 05/02/17 1354 Potassium Gluconate 90 Mg Tablet, 90 MG PO UD, (Reported) ONLY TAKES WITH FUROSEMIDE Pramipexole Di-HCl 0.25 Mg Tablet, 0.25 MG PO DAILY, (Reported) Pramipexole Di-HCl 0.25 Mg Tablet, 0.5 MG PO HS, (Reported) TAKES 2 (0.25 MG) TABLETS Rosuvastatin Calcium 20 Mg Tablet, 20 MG PO HS, (Reported) Solifenacin Succinate 5 Mg Tablet, 5 MG PO DAILY@1200, (Reported) Tamsulosin HCl 0.4 Mg Cap.er.24h, 0.4 MG PO HS, (Reported) Trazodone HCl 150 Mg Tablet, 150 MG PO HS PRN for SLEEP, (Reported) [Antivert] , 25 MG 4 times a day PRN for Dizziness Prescribed by: YULIET PETER on 08/29/16 1500 [Prevagen] , 1 TAB PO DAILY, (Reported) Patient Home Medication List Home Medication List Reviewed: Yes (TAVIA LOPEZ MD) Review of Systems Review of Systems Constitutional: No fever, No malaise EENTM: No Blurred Vision, No Double Vision Respiratory: Denies Cough, Denies Shortness of Air Cardiovascular: Chest Pain; Denies Irregular Heart Rate Gastrointestinal: Denies Abdominal Pain; Diarrhea; Denies Nausea, Denies Vomiting (YAW SILVA STUDENT) Constitutional: no symptoms reported, fever Musculoskeletal: see HPI (TAVIA LOPEZ MD) All Other Systems Reviewed Negative Unless Noted: Yes (TAVIA LOPEZ MD) Past Bvgeyqz-Ogozhs-Jzxlrm Hx Past Med/Social Hx: Reviewed Nursing Past Med/Soc Hx (TAVIA LOPEZ MD) Patient Social History Alcohol Use: Occasionally Uses Recreational Drug Use: No Smoking Status: Former Smoker Former Smoker, Quit: Jun 07, 1974 2nd Hand Smoke Exposure: No Recent Foreign Travel: No Contact w/Someone Who Travel: No Recent Infectious Disease Expo: No Recent Hopitalizations: No Physical Abuse: No Sexual Abuse: No Mistreated: No Fear: No (YAW SILVA) Alcohol Use: Denies Use Recreational Drug Use: No Smoking Status: Former Smoker (TAVIA LOPEZ MD) Immunizations Up To Date Tetanus Booster (TDap): Unknown Date of Pneumonia Vaccine: Feb 03, 2015 Date of Influenza Vaccine: Jan 13, 2016 (YAW SILVA STUDENT) Seasonal Allergies Seasonal Allergies: Yes (YAW SILVA) Past Medical History Surgeries: Yes (LEFT WRIST, LEFT KNEE SCOPE, TOTAL LEFT KNEE, HEMORRHOIDS,TURP ) Abdominal, Coronary Stent, Joint Replacement Respiratory: No Currently Using CPAP: No Currently Using BIPAP: No Cardiac: Yes (STENTS X5) Coronary Artery Disease, Heart Attack, High Cholesterol Neurological: No Reproductive Disorders: No Sexually Transmitted Disease: No HIV/AIDS: No Prostate Problems Gastrointestinal: Yes (colostomy) Obstructive Bowel Musculoskeletal: Yes Arthritis Endocrine: No Hearing Impairment: Denies, Hearing Aide Right, Hearing Aide Left Cancer: Yes (NOSE) Bladder, Prostate Psychosocial: No Integumentary: No Blood Disorders: No Adverse Reaction/Blood Tranf: No (YAW SILVA STUDENT) Family Medical History Reviewed Nursing Family Hx (TAVIA LOPEZ MD) Arthritis 19 FATHER 19 MOTHER Diabetes mellitus 19 FATHER Myocardial infarction 19 FATHER 19 MOTHER Respiratory disorder G8 SISTER No Family History of: AIDS Bill's disease Alcoholism Alzheimer's disease Cancer of mouth Colon cancer Completed stroke Dementia Kidney disease Parkinson's disease Prostate cancer Psychosocial problem Seizure disorder Severe allergy Thyroid disease Tuberculosis No Pertinent Family Hx (YAW SILVA) Physical Exam Vital Signs Vital Signs - First Documented 12/12/18 11:15 Temp 36.7 Pulse 99 Resp 16 B/P (MAP) 132/79 (96) Pulse Ox 94 O2 Delivery Room Air (TAVIA LOPEZ MD) Vital Signs Capillary Refill : Less Than 3 Seconds (YAW SILVA STUDENT) Height, Weight, BMI Height: 5'7.00" Weight: 195lbs. 0oz. 88.558243cp; 30.00 BMI Method:Stated General Appearance: No Apparent Distress, WD/WN HEENT: PERRL/EOMI, Moist Mucous Membranes Respiratory: Chest Non Tender, Lungs Clear, Normal Breath Sounds Cardiovascular: Regular Rate, Rhythm, No Edema, No Murmur Gastrointestinal: Normal Bowel Sounds, Non Tender Neurologic/Psychiatric: Alert, Oriented x3, No Motor/Sensory Deficits, Normal Mood/Affect Skin: Normal Color, Warm/Dry (YAW SILVA STUDENT) General Appearance: No Apparent Distress, WD/WN HEENT: PERRL/EOMI, Moist Mucous Membranes Neck: Non Tender, Supple Respiratory: Lungs Clear, Normal Breath Sounds Cardiovascular: Regular Rate, Rhythm, No Murmur Gastrointestinal: Non Tender, Soft Extremity: Normal Range of Motion, Non Tender Neurologic/Psychiatric: Alert, Oriented x3 Skin: Normal Color, Warm/Dry (TAVIA LOPEZ MD) Procedures/Interventions Suture Size: 4-0 (YAW SILVA STUDENT) Progress/Results/Core Measures Results/Orders Lab Results Laboratory Tests Test 12/12/18 12:49 12/12/18 14:50 Range/Units White Blood Count 7.1 4.3-11.0 10^3/uL Red Blood Count 5.19 4.35-5.85 10^6/uL Hemoglobin 16.1 13.3-17.7 G/DL Hematocrit 48 40-54 % Mean Corpuscular Volume 93 80-99 FL Mean Corpuscular Hemoglobin 31 25-34 PG Mean Corpuscular Hemoglobin Concent 33 32-36 G/DL Red Cell Distribution Width 14.9 H 10.0-14.5 % Platelet Count 206 130-400 10^3/uL Mean Platelet Volume 9.6 7.4-10.4 FL Neutrophils (%) (Auto) 87 H 42-75 % Lymphocytes (%) (Auto) 4 L 12-44 % Monocytes (%) (Auto) 3 0-12 % Eosinophils (%) (Auto) 6 0-10 % Basophils (%) (Auto) 0 0-10 % Neutrophils # (Auto) 6.2 1.8-7.8 X 10^3 Lymphocytes # (Auto) 0.3 L 1.0-4.0 X 10^3 Monocytes # (Auto) 0.2 0.0-1.0 X 10^3 Eosinophils # (Auto) 0.4 H 0.0-0.3 10^3/uL Basophils # (Auto) 0.0 0.0-0.1 10^3/uL Neutrophils % (Manual) 83 % Lymphocytes % (Manual) 5 % Monocytes % (Manual) 3 % Eosinophils % (Manual) 7 % Band Neutrophils 2 % Blood Morphology Comment NORMAL Prothrombin Time 13.7 12.2-14.7 SEC INR Comment 1.0 0.8-1.4 Activated Partial Thromboplast Time 30 24-35 SEC Sodium Level 137 135-145 MMOL/L Potassium Level 4.4 3.6-5.0 MMOL/L Chloride Level 101 98-107 MMOL/L Carbon Dioxide Level 23 21-32 MMOL/L Anion Gap 13 5-14 MMOL/L Blood Urea Nitrogen 22 H 7-18 MG/DL Creatinine 1.78 H 0.60-1.30 MG/DL Estimat Glomerular Filtration Rate 37 BUN/Creatinine Ratio 12 Glucose Level 142 H 70-105 MG/DL Calcium Level 9.9 8.5-10.1 MG/DL Corrected Calcium 8.5-10.1 MG/DL Magnesium Level 2.3 1.6-2.4 MG/DL Total Bilirubin 0.8 0.1-1.0 MG/DL Aspartate Amino Transf (AST/SGOT) 23 5-34 U/L Alanine Aminotransferase (ALT/SGPT) 20 0-55 U/L Alkaline Phosphatase 82 40-136 U/L Myoglobin 319.2 H 237.2 H 10.0-92.0 NG/ML Troponin I < 0.028 < 0.028 <0.028 NG/ML Total Protein 8.5 H 6.4-8.2 GM/DL Albumin 4.8 H 3.2-4.5 GM/DL (TAVIA LOPEZ MD) My Orders Orders - TAVIA LOPEZ MD Cbc With Automated Diff (12/12/18 12:18) Magnesium (12/12/18 12:18) Chest 1 View, Ap/Pa Only (12/12/18 12:18) Ekg Tracing (12/12/18 12:18) Cardiac Profile 1 (12/12/18 12:18) Comprehensive Metabolic Panel (12/12/18 12:18) Myoglobin Serum (12/12/18 12:18) Protime With Inr (12/12/18 12:18) Partial Thromboplastin Time (12/12/18 12:18) O2 (12/12/18 12:18) Monitor-Rhythm Ecg Trace Only (12/12/18 12:18) Ed Iv/Invasive Line Start (12/12/18 12:18) Aspirin Chewable Tablet (Baby Aspirin Ch (12/12/18 12:30) Manual Differential (12/12/18 12:49) Ed Iv/Invasive Line Start (12/12/18 14:09) Ns Iv 500 Ml (Sodium Chloride 0.9%) (12/12/18 14:09) Troponin I (12/12/18 14:09) Myoglobin Serum (12/12/18 14:09) (TAVIA LOPEZ MD) Medications Given in ED (TAVIA LOPEZ MD) Vital Signs/I&O 12/12/18 12/12/18 11:15 15:49 Temp 36.7 Pulse 99 81 Resp 16 11 B/P (MAP) 132/79 (96) 130/74 Pulse Ox 94 96 O2 Delivery Room Air Room Air (TAVIA LOPZE MD) Blood Pressure Mean: 96 Progress Progress Note : Time: 13:10 Progress Note The patient is resting comfortably in the exam room. With the findings from the history and physical, it seems that the pain is most likely musculoskeletal but with his extensive cardiac history he will be evaluated for cardiac ischemia. (YAW SILVA MED STUDENT) Progress Note : Progress Note I have seen and evaluated the patient and agree with above except as indicated. I have directed the plan of care. Chest pain protocol initiated. Patient is pain-free currently. ASA 324 mg by mouth ordered. Monitor patient. Initial set of labs reviewed. Myoglobin is elevated the patient has been quite active recently preparing for yard sale. Also he was having to get up and down multiple times last night due to diarrhea. The diarrhea is resolved and he is not having to do that anymore currently. Myoglobin may simply be muscle related that we will repeat myoglobin and troponin at 2 hour draw john. Normal saline 500 mL bolus ordered due to concerns about possible dehydration given diarrhea. Monitor patient. 1535: Labs reviewed and repeat labs improved with elevation of troponin. Patient remains pain free and would like to go home. Discharged home with return precautions. Patient verbalize understanding instructions and agre ement with plan. (TAVIA LOPEZ MD) Departure Impression Primary Impression: Elevated myoglobin level Additional Impressions: Diarrhea Qualified Codes: R19.7 - Diarrhea, unspecified Chest wall pain Disposition: 01 HOME, SELF-CARE Condition: Improved Departure-Patient Inst. Decision time for Depature: 15:35 (TAVIA LOPEZ MD) Referrals: BLAKE BOYCE MD (PCP/Family) Primary Care Physician Patient Instructions: Chest Pain (DC), Dehydration, Adult (DC), Diarrhea and Traveler's Diarrhea, Adult (DC) Add. Discharge Instructions: All discharge instructions reviewed with patient and/or family. Voiced und erstanding. You should rest and drink an adequate amount of fluids. Follow-up with your DrMateo in one to 2 days for recheck. Return for worse pain, fever, vomiting, weakness, breathing problems, chest pain or other concerns as needed. You should follow-up with your heart doctor for recheck and further evaluation within one week as well. YAW SILVA MED STUDENT Dec 12, 2018 13:17 TAVIA LOPEZ MD Dec 12, 2018 14:28
--- NOTE | 2018-12-12 13:39 | Diagnostic Imaging Report ---
INDICATION: Chest pain and tightness. COMPARISON: 02/17/2018. TECHNIQUE: Single frontal radiograph of the chest dated 12/12/2018. FINDINGS: Post surgical changes of a median sternotomy. The cardiac silhouette is within normal limits in size. No significant pulmonary vascular congestion. Senescent changes of the lungs are again identified without additional focal pulmonary opacity. No pleural effusion. No pneumothorax. No acute osseous abnormality. IMPRESSION: Stable examination without acute cardiopulmonary abnormality. Dictated by: Dictated on workstation # [id number]
[2018-12-12 13:40] LABS: BAND NEUTROPHILS 2 %; EOSINOPHILS % (MANUAL) 7 %; LYMPHOCYTES % (MANUAL) 5 %; MONOCYTES % (MANUAL) 3 %; NEUTROPHILS % (MANUAL) 83 %; RBC MORPH NORMAL
[2018-12-12] MEDS ORDERED: NS IV 500 ML 500 ML IV ONE (14:09)
[2018-12-12 15:49] VITALS: BP 130/74
== END 2018-12-12 15:49 | disposition home or self-care (01) ==
LOC: EDUNIT# 11:05 → ER 11:06
DX: R79.89 Other specified abnormal findings of blood chemistry (principal); R19.7 Diarrhea, unspecified; R07.89 Other chest pain; I25.10 Atherosclerotic heart disease of native coronary artery without angina pectoris; E78.00 Pure hypercholesterolemia, unspecified; I25.2 Old myocardial infarction; Z85.46 Personal history of malignant neoplasm of prostate; Z85.51 Personal history of malignant neoplasm of bladder; Z79.82 Long term (current) use of aspirin; Z87.891 Personal history of nicotine dependence; Z95.5 Presence of coronary angioplasty implant and graft; Z82.49 Family history of ischemic heart disease and other diseases of the circulatory system
CPT/HCPCS: 36415; 71045; 80053; 83735; 83874; 84484; 85007; 85027; 85610; 85730; 93005; 93041; 96360

== ENCOUNTER → 2018-12-19 | Outpatient (CLI) | payer MEDICARE ==
--- NOTE | 2018-12-19 16:30 | Diagnostic Imaging Report ---
INDICATION: Abdominal pain. CT abdomen and pelvis obtained without IV contrast. Comparison made to 04/07/2016. The visualized portions of the lung bases show no focal infiltrates. There is some minor scarring in the lung bases. There is no pleural fluid collection. There is no free intraperitoneal air. The liver shows no definite mass lesion. There are a couple of tiny hypodense areas which are too small to characterize but are unchanged from 04/07/2016 and are therefore likely small cysts. Gallbladder appears unremarkable. There are scattered calcified granulomata in the liver and spleen. The spleen is nonenlarged. The adrenals appear normal. The pancreas appears normal. There is no peripancreatic inflammatory change. Kidneys bilaterally show some perinephric scarring with stable benign-appearing cysts in the left kidney. There are no radiopaque stones or hydronephrosis. A hyperdense exophytic lesion off the left kidney measures about 1.5 cm which is unchanged compared to the previous study. No abdominal soft tissue mass or adenopathy. There is evidence of previous bladder resection with urostomy in the right lower quadrant. Visualized bowel loops are not dilated or thickened. There are few scattered uncomplicated colonic diverticula. There is no adenopathy in the pelvis. IMPRESSION: Postop changes status post bladder resection with urostomy in the right lower quadrant. No abdominal soft tissue mass or adenopathy. There are benign-appearing cysts in the left kidney, including a hyperdense exophytic lesion inferiorly which is unchanged from 04/07/2016. There are small probable cysts in the liver which are stable compared to the prior study as well as granulomatous changes in the liver and spleen. There is no acute-appearing abnormality. Dictated by: Dictated on workstation # [id number]
== END ==
LOC: RAD 15:17
DX: K85.80 Other acute pancreatitis without necrosis or infection (principal); N28.1 Cyst of kidney, acquired; K75.3 Granulomatous hepatitis, not elsewhere classified; D73.89 Other diseases of spleen; Z98.890 Other specified postprocedural states; Z90.6 Acquired absence of other parts of urinary tract
CPT/HCPCS: 74176

== ENCOUNTER 2019-02-06 10:45 | Outpatient (RCR) | payer MEDICARE | END 2019-02-08 | disposition home or self-care (01) | LOC: CR3 10:45 | PROVIDERS: ATTEND Internal Medicine Interventional Cardiology | DX: Z29.8 Encounter for other specified prophylactic measures (principal) ==

== ENCOUNTER 2019-03-06 09:42 | Outpatient (RCR) | payer MEDICARE ==
[2019-03-21] MEDS ORDERED: CEFD300C3 PO (13:19)
== END 2019-03-20 | disposition home or self-care (01) ==
LOC: CR3 09:42
PROVIDERS: ATTEND Internal Medicine Interventional Cardiology
DX: Z29.8 Encounter for other specified prophylactic measures (principal)

== ENCOUNTER 2019-03-21 09:35 | Emergency (ER) | payer MEDICARE ==
[~2019-03-21] VITALS: Ht 170 cm; Wt 81.0 kg
[2019-03-21 10:32] LABS: CLARITY,URINE CLOUDY; COLOR,URINE AMBER; GLUCOSE, URINE (UA) NEGATIVE (NEGATIVE); KETONES,URINE NEGATIVE (NEGATIVE); LEUKOCYTE ESTERASE ,URINE 2+ (NEGATIVE); NITRITE,URINE POSITIVE (NEGATIVE); PROTEIN,URINE 3+ (NEGATIVE)
[2019-03-21 10:56] LABS: BILIRUBIN,URINE 1+ (NEGATIVE); RBC,URINE TNTC /HPF
[2019-03-21 10:57] LABS: BACTERIA,URINE MODERATE /HPF; WBC,URINE 50-100 /HPF
--- NOTE | 2019-03-21 11:08 | ED GU-Male ---
General Chief Complaint: - Urinary Stated Complaint: DISCOLORED URINE/BLOOD Nursing Triage Note: ARRIVED VIA AMB TO ROOM 06 WITHOUT DIFFICULTY. STATES HE HAD A CHANGE IN URINE STARTING YESTERDAY. HX OF BLADDER CA WITH A STOMA. Source: patient Exam Limitations: no limitations (LYNDA ÁLVAREZ,MED STUDENT) History of Present Illness Date Seen by Provider: Mar 21, 2019 Time Seen by Provider: 10:49 Initial Comments Pt presents to ED w/ CC of red urine beginning yesterday. Pts noticed red staining to urine yesterday that has increased today. 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 Is regularly followed at [facility], last evaluated in Oct. Denies back pain, abdominal pain, fever, chills, nausea, vomiting. Timing/Duration: yesterday Radiation: none Activities at Onset: none Associated Symptoms: denies symptoms; No abdominal pain, No diaphoresis, No fever/chills, No lower back pain, No nausea/vomiting, No swelling (LYNDA ÁLVAREZ,MED STUDENT) Allergies and Home Medications Allergies Coded Allergies: NKANo Known Allergies (Verified Allergy, Mild, 11/24/11) Uncoded Allergies: BEE STINGS (Allergy, Severe, SOA/HIVES, 11/01/10) Home Medications Albuterol Sulfate 2.5 Mg/0.5 Ml Vial.neb, 2.5 MG IH Q4H PRN for SHORTNESS OF BREATH Prescribed by: YAW CELESTE on 02/17/18 1818 Aspirin 81 Mg Tablet.dr, 81 MG PO TuSa, (Reported) Calcium Carbonate/Vitamin D3 1 Each Tablet, 1 TAB PO BID, (Reported) Cephalexin 500 Mg Capsule, 500 MG PO TID Prescribed by: LOUISA ARBOLEDA on 09/22/17 1222 Cyclobenzaprine HCl 10 Mg Tablet, 10 MG PO BID PRN for MUSCLE SPASMS, (Reported) Diltiazem HCl 90 Mg Tablet, 45 MG PO HS, (Reported) TAKES 1/2 OF A (90 MG) TABLET / TAKES FOR LEG CRAMPS Diphenhydramine HCl 25 Mg Capsule, 25 MG PO BID, (Reported) Docusate Sodium 100 Mg Capsule, 100 MG PO DAILY, (Reported) Docusate Sodium 100 Mg Capsule, 200 MG PO HS, (Reported) TAKES 2 (100 MG) CAPSULES Furosemide 40 Mg Tablet, 40 MG PO DAILY PRN for PITTING EDEMA, (Reported) Gemfibrozil 600 Mg Tablet, 600 MG PO DAILY, (Reported) Hydrocodone Bit/Acetaminophen 1 Each Tablet, 1 TAB PO EVERY 4-6 HOURS PRN for PAIN, (Reported) Levothyroxine Sodium 50 Mcg Tablet, 50 MCG PO DAILY, (Reported) Mirabegron 50 Mg Tab.er.24h, 50 MG PO DAILY@1200, (Reported) Multivitamin 1 Each Tablet, 1 TAB PO DAILY, (Reported) Nitroglycerin 0.4 Mg Tab.subl, 0.4 MG SL UD PRN for CHEST PAIN, (Reported) 1 TAB EVERY 5 MINUTES UP TO 3 DOSES WITHIN 15 MINUTES; CALL 911 IF NO RELIEF Nitroglycerin 0.4 Mg Tab.subl, 0.4 MG SL when necessary Prescribed by: YULIET PETER on 06/07/16 1159 [place] 3 Polyunsat Fatty Acids 1,000 Mg Cap, 2,000 MG PO DAILY, (Reported) Oseltamivir Phosphate 75 Mg Cap, 75 MG PO BID Prescribed by: ASHLY VASQUEZ on 05/02/17 1354 Potassium Gluconate 90 Mg Tablet, 90 MG PO UD, (Reported) ONLY TAKES WITH FUROSEMIDE Pramipexole Di-HCl 0.25 Mg Tablet, 0.25 MG PO DAILY, (Reported) Pramipexole Di-HCl 0.25 Mg Tablet, 0.5 MG PO HS, (Reported) TAKES 2 (0.25 MG) TABLETS Rosuvastatin Calcium 20 Mg Tablet, 20 MG PO HS, (Reported) Solifenacin Succinate 5 Mg Tablet, 5 MG PO DAILY@1200, (Reported) Tamsulosin HCl 0.4 Mg Cap.er.24h, 0.4 MG PO HS, (Reported) Trazodone HCl 150 Mg Tablet, 150 MG PO HS PRN for SLEEP, (Reported) [Antivert] , 25 MG 4 times a day PRN for Dizziness Prescribed by: YULIET PETER on 08/29/16 1500 [Prevagen] , 1 TAB PO DAILY, (Reported) Patient Home Medication List Home Medication List Reviewed: Yes (LYNDA ÁLVAREZ,MED STUDENT) Home Medication List Reviewed: Yes (TAVIA LOPEZ MD) Review of Systems Review of Systems Constitutional: No chills, No diaphoresis, No fever EENTM: No hearing loss, No ear pain, No eye pain, No vision loss Respiratory: No cough, No dyspnea on exertion Cardiovascular: No chest pain, No edema; Hx of Intervention; No palpitations Gastrointestinal: No abdominal pain, No constipation, No diarrhea, No dysphagia, No melena, No nausea, No vomiting Genitourinary: see HPI; denies flank pain; hematuria; denies pain; other (hx bladder cancer w/ cystectomy, ureterostoma placed 2 years previously ) Musculoskeletal: No back pain, No joint pain Skin: No lesions, No lumps, No rash Psychiatric/Neurological: Denies Anxiety, Denies Depressed, Denies Headache Hematologic/Lymphatic: Easy Bruising (on plavix) (LYNDA ÁLVAREZ MED STUDENT) Respiratory: No cough, No dyspnea on exertion Cardiovascular: No chest pain, No edema Gastrointestinal: No abdominal pain, No vomiting Genitourinary: denies flank pain; hematuria; denies pain (TAVIA LOPEZ MD) Past Jiwdvai-Xssxzs-Cwykhv Hx Past Med/Social Hx: Reviewed Nursing Past Med/Soc Hx (TAVIA LOPEZ MD) Patient Social History Alcohol Use: Rarely Uses Recreational Drug Use: No Smoking Status: Former Smoker Former Smoker, Quit: Jun 07, 1974 2nd Hand Smoke Exposure: No Recent Foreign Travel: No Contact w/Someone Who Travel: No Recent Infectious Disease Expo: No Recent Hopitalizations: No (LYNDA ÁLVAREZ MED STUDENT) Immunizations Up To Date Tetanus Booster (TDap): Unknown Date of Pneumonia Vaccine: Feb 03, 2015 Date of Influenza Vaccine: Jan 13, 2016 (LYNDA ÁLVAREZ MED STUDENT) Seasonal Allergies Seasonal Allergies: Yes (LYNDA ÁLVAREZ MED STUDENT) Past Medical History Surgeries: Yes (LEFT WRIST, LEFT KNEE SCOPE, TOTAL LEFT KNEE, HEMORRHOIDS,TURP ) Abdominal, Bladder Surgery, Coronary Stent, Joint Replacement Respiratory: No Currently Using CPAP: No Currently Using BIPAP: No Cardiac: Yes (STENTS X5) Coronary Artery Disease, Heart Attack, High Cholesterol Neurological: No Reproductive Disorders: No Sexually Transmitted Disease: No HIV/AIDS: No Prostate Problems Gastrointestinal: Yes (colostomy) Obstructive Bowel Musculoskeletal: Yes Arthritis Endocrine: No Hearing Impairment: Denies, Hearing Aide Right, Hearing Aide Left Cancer: Yes (NOSE) Bladder, Prostate Psychosocial: No Integumentary: No Blood Disorders: No Adverse Reaction/Blood Tranf: No (LYNDA ÁLVAREZ MED STUDENT) Family Medical History Reviewed Nursing Family Hx (TAVIA LOPEZ MD) Arthritis 19 FATHER 19 MOTHER Diabetes mellitus 19 FATHER Myocardial infarction 19 FATHER 19 MOTHER Respiratory disorder G8 SISTER No Family History of: AIDS [place]'s disease Alcoholism Alzheimer's disease Cancer of mouth Colon cancer Completed stroke Dementia Kidney disease Parkinson's disease Prostate cancer Psychosocial problem Seizure disorder Severe allergy Thyroid disease Tuberculosis No Pertinent Family Hx (LYNDA ÁLVAREZ MED STUDENT) Physical Exam Vital Signs Vital Signs - First Documented 03/21/19 10:15 Temp 36.6 Pulse 74 Resp 16 B/P (MAP) 126/68 (87) Pulse Ox 92 O2 Delivery Room Air (TAVIA LOPEZ MD) Vital Signs Capillary Refill : Less Than 3 Seconds (LYNDA ÁLVAREZ MED STUDENT) Height, Weight, BMI Height: 5'7.00" Weight: 195lbs. 0oz. [id number]; 28.00 BMI Method:Stated General Appearance: WD/WN, no apparent distress HEENT: PERRL/EOMI, normal ENT inspection, TMs normal, pharynx normal Neck: non-tender, supple Cardiovascular: regular rate, rhythm, no edema, no gallop, no murmur Respiratory: chest non-tender, lungs clear, normal breath sounds, no respiratory distress, no accessory muscle use Gastrointestinal: non tender, soft Back: normal inspection, no CVA tenderness, no vertebral tenderness Extremities: no calf tenderness, normal capillary refill Neurologic/Psychiatric: alert, oriented x 3 Skin: normal color, warm/dry, other (ureterostoma site pink and moist, urostomy bag in place ) Lymphatic: no adenopathy (anterior/posterior cervical, supra/infraclavicular ) (LYNDA ÁLVAREZ MED STUDENT) General Appearance: WD/WN, no apparent distress Cardiovascular: regular rate, rhythm, no edema, no gallop, no murmur Respiratory: lungs clear, normal breath sounds Gastrointestinal: non tender, soft Back: normal inspection, no CVA tenderness, no vertebral tenderness Neurologic/Psychiatric: alert, oriented x 3 Skin: normal color, warm/dry (TAVIA LOPEZ MD) Procedures/Interventions Suture Size: 4-0 (LYNDA ÁLVAREZ MED STUDENT) Progress/Results/Core Measures Suspected Sepsis Recent Fever Within 48 Hours: No Infection Criteria Present: Suspected New Infection New/Unexplained Altered Menta: No Sepsis Screen: No Definite Risk SIRS Temperature: Pulse: 74 Respiratory Rate: 16 Blood Pressure 126 /68 Mean: 87 (LYNDA ÁLVAREZ,MED STUDENT) Results/Orders Lab Results Laboratory Tests Test 03/21/19 10:20 03/21/19 11:27 Range/Units Urine Color JOE H Urine Clarity CLOUDY Urine pH 7.0 5-9 Urine Specific [place] 1.025 H 1.016-1.022 Urine Protein 3+ H NEGATIVE Urine Glucose (UA) NEGATIVE NEGATIVE Urine Ketones NEGATIVE NEGATIVE Urine Nitrite POSITIVE NEGATIVE Urine Bilirubin 1+ H NEGATIVE Urine Urobilinogen 1.0 < = 1.0 MG/DL Urine Leukocyte Esterase 2+ H NEGATIVE Urine RBC (Auto) 3+ H NEGATIVE Urine RBC TNTC H /HPF Urine WBC 50-100 H /HPF Urine Crystals NONE /LPF Urine Bacteria MODERATE H /HPF Urine Casts NONE /LPF Urine Mucus NEGATIVE /LPF Urine Culture Indicated YES White Blood Count 7.4 4.3-11.0 10^3/uL Red Blood Count 4.78 4.35-5.85 10^6/uL Hemoglobin 14.6 13.3-17.7 G/DL Hematocrit 44 40-54 % Mean Corpuscular Volume 93 80-99 FL Mean Corpuscular Hemoglobin 31 25-34 PG Mean Corpuscular Hemoglobin Concent 33 32-36 G/DL Red Cell Distribution Width 15.6 H 10.0-14.5 % Platelet Count 215 130-400 10^3/uL Mean Platelet Volume 9.5 7.4-10.4 FL Neutrophils (%) (Auto) 79 H 42-75 % Lymphocytes (%) (Auto) 8 L 12-44 % Monocytes (%) (Auto) 10 0-12 % Eosinophils (%) (Auto) 2 0-10 % Basophils (%) (Auto) 0 0-10 % Neutrophils # (Auto) 5.8 1.8-7.8 X 10^3 Lymphocytes # (Auto) 0.6 L 1.0-4.0 X 10^3 Monocytes # (Auto) 0.8 0.0-1.0 X 10^3 Eosinophils # (Auto) 0.2 0.0-0.3 10^3/uL Basophils # (Auto) 0.0 0.0-0.1 10^3/uL Sodium Level 139 135-145 MMOL/L Potassium Level 4.7 3.6-5.0 MMOL/L Chloride Level 102 98-107 MMOL/L Carbon Dioxide Level 26 21-32 MMOL/L Anion Gap 11 5-14 MMOL/L Blood Urea Nitrogen 18 7-18 MG/DL Creatinine 1.36 H 0.60-1.30 MG/DL Estimat Glomerular Filtration Rate 50 BUN/Creatinine Ratio 13 Glucose Level 124 H 70-105 MG/DL Calcium Level 9.9 8.5-10.1 MG/DL Corrected Calcium 9.7 8.5-10.1 MG/DL Total Bilirubin 0.6 0.1-1.0 MG/DL Aspartate Amino Transf (AST/SGOT) 17 5-34 U/L Alanine Aminotransferase (ALT/SGPT) 15 0-55 U/L Alkaline Phosphatase 76 40-136 U/L C-Reactive Protein High Sensitivity 1.17 H 0.00-0.50 MG/DL Total Protein 7.6 6.4-8.2 GM/DL Albumin 4.2 3.2-4.5 GM/DL (TAVIA LOPEZ MD) My Orders Orders - TAVIA LOPEZ MD Ua Culture If Indicated (03/21/19 10:25) Urine Culture (03/21/19 10:20) Cbc With Automated Diff (03/21/19 11:09) Comprehensive Metabolic Panel (03/21/19 11:09) Hs C Reactive Protein (03/21/19 11:10) Ed Iv/Invasive Line Start (03/21/19 11:10) Lactated Ringers (Lr 1000 Ml Iv Solution (03/21/19 11:10) (TAVIA LOPEZ MD) Medications Given in ED Current Medications Medications Dose Ordered Sig/Fahad Route Start Time Stop Time Status Last Admin Dose Admin Lactated Ringer's 1,000 ml @ 0 mls/hr Q0M ONCE IV 03/21/19 11:10 03/21/19 11:11 DC 03/21/19 11:27 1,000 MLS/HR (TAVIA LOPEZ MD) Vital Signs/I&O 03/21/19 10:15 Temp 36.6 Pulse 74 Resp 16 B/P (MAP) 126/68 (87) Pulse Ox 92 O2 Delivery Room Air (TAVIA LOPEZ MD) Vital Signs/I&O Capillary Refill : Less Than 3 Seconds (LYNDA ÁLVAREZ,MED STUDENT) Blood Pressure Mean: 87 Progress Note : Time: 11:24 Progress Note Seen and evaluated. Ordered UA, CBC, CMP. Will admin 1L LR. (LYNDA ÁLVAREZ,MED STUDENT) Progress Note : Progress Note Have seen and evaluated the patient and agree with above except as indicated. I have directed the plan of care. Patient is here with hematuria. He does have urostomy secondary to bladder cancer and surgical removal. Does typically had mucus in the urine secondary to the urostomy but it is not typically bloody or dark like it is now. Denies nausea or vomiting. Denies fever but does have chills. Physical exam as above. We will check labs, UA and give LR 1 L bolus. 1315: UA results of that and is concerning for UTI. Labs are okay. I did discuss all this with the patient and family. Discharged home with return precautions. Patient and family verbalize understanding of instructions and agreement with plan. (TAVIA LOPEZ MD) Departure Impression Primary Impression: Urinary tract infection Qualified Codes: N30.00 - Acute cystitis without hematuria Disposition: HOME, SELF-CARE Condition: Improved Departure-Patient Inst. Decision time for Depature: 13:18 (TAVIA LOPEZ MD) Referrals: BLAKE BOYCE MD (PCP/Family) Primary Care Physician Patient Instructions: Urinary Tract Infection, Adult (DC) Add. Discharge Instructions: All discharge instructions reviewed with patient and/or family. Voiced understa nding. Take medications as directed. You may take [id number] probiotic to decrease chance of diarrhea with antibiotics. Follow-up with your DrMateo in a few days for recheck. Return for worse pain, weakness, fever, vomiting, breathing problems or other concerns as needed. Drink plenty of fluids. Scripts Cefdinir (Cefdinir) 300 Mg Capsule 300 MG PO BID, #14 CAP 0 Refills Prov: TAVIA LOPEZ MD 03/21/19 Copy Copies To 1: BLAKE BOYCE MD, DREW,MED STUDENT Mar 21, 2019 11:08 TAVIA LOPEZ MD Mar 21, 2019 13:20
[2019-03-21] MEDS ORDERED: LACTATED RINGERS 1,000 ML IV ONE (11:10)
[2019-03-21 11:38] LABS: BASOPHILS % (AUTO) 0 % (0-10); EOSINOPHILS # (AUTO) 0.2 10^3/uL (0.0-0.3); EOSINOPHILS % (AUTO) 2 % (0-10); HEMATOCRIT 44 % (40-54); HEMOGLOBIN 14.6 G/DL (13.3-17.7); LYMPHOCYTES # (AUTO) 0.6 X 10^3 (1.0-4.0); LYMPHOCYTES % (AUTO) 8 % (12-44); MEAN CORPUSCULAR HEMOGLOBIN 31 PG (25-34); MEAN CORPUSCULAR HGB CONC 33 G/DL (32-36); MEAN CORPUSCULAR VOLUME 93 FL (80-99); MEAN PLATELET VOLUME 9.5 FL (7.4-10.4); MONOCYTES # (AUTO) 0.8 X 10^3 (0.0-1.0); MONOCYTES % (AUTO) 10 % (0-12); NEUTROPHILS # (AUTO) 5.8 X 10^3 (1.8-7.8); NEUTROPHILS % (AUTO) 79 % (42-75); PLATELET COUNT 215 10^3/uL (130-400); RED CELL DISTRIBUTION WIDTH 15.6 % (10.0-14.5); WHITE BLOOD COUNT 7.4 10^3/uL (4.3-11.0)
[2019-03-21 11:59] LABS: ALBUMIN 4.2 GM/DL (3.2-4.5); BILIRUBIN,TOTAL 0.6 MG/DL (0.1-1.0); CALCIUM 9.9 MG/DL (8.5-10.1); CREATININE SERUM 1.36 MG/DL (0.60-1.30); POTASSIUM 4.7 MMOL/L (3.6-5.0); TOTAL PROTEIN 7.6 GM/DL (6.4-8.2)
--- NOTE | 2019-03-21 12:52 | NUR ---
RESTING IN BED ET DENIES NEEDS AT THIS TIME.
--- NOTE | 2019-03-21 12:58 | NUR ---
REPORT GIVEN TO Julius FONSECA
[2019-03-21] MEDS ORDERED: CEFD300C3 PO (13:19)
[2019-03-21 13:43] VITALS: BP 126/68
== END 2019-03-21 13:45 | disposition home or self-care (01) ==
LOC: EDUNIT# 09:35 → ER 09:37
DX: N39.0 Urinary tract infection, site not specified (principal); E78.00 Pure hypercholesterolemia, unspecified; I25.10 Atherosclerotic heart disease of native coronary artery without angina pectoris; I25.2 Old myocardial infarction; Z85.46 Personal history of malignant neoplasm of prostate; Z85.51 Personal history of malignant neoplasm of bladder; Z79.82 Long term (current) use of aspirin; Z87.891 Personal history of nicotine dependence; Z95.5 Presence of coronary angioplasty implant and graft; Z82.49 Family history of ischemic heart disease and other diseases of the circulatory system
CPT/HCPCS: 36415; 80053; 81000; 85025; 86141; 87077; 87088; 87186; 96360

== ENCOUNTER 2019-05-10 14:04 | Inpatient (IN) | payer MEDICARE ==
[~2019-05-10] VITALS: Ht 172.7 cm; Wt 86.2 kg
[~2019-05-10 14:04] MED LIST changes: +CEFD300C3 PO
[2019-05-10] MEDS ORDERED: NS IV 1000 ML 1,000 ML IV SCH (14:16)
[2019-05-10 14:30] LABS: BASOPHILS % (AUTO) 0 % (0-10); EOSINOPHILS # (AUTO) 0.2 10^3/uL (0.0-0.3); EOSINOPHILS % (AUTO) 2 % (0-10); HEMATOCRIT 35 % (40-54); HEMOGLOBIN 11.1 G/DL (13.3-17.7); LYMPHOCYTES # (AUTO) 0.5 X 10^3 (1.0-4.0); LYMPHOCYTES % (AUTO) 6 % (12-44); MEAN CORPUSCULAR HEMOGLOBIN 29 PG (25-34); MEAN CORPUSCULAR HGB CONC 32 G/DL (32-36); MEAN CORPUSCULAR VOLUME 92 FL (80-99); MEAN PLATELET VOLUME 9.1 FL (7.4-10.4); MONOCYTES # (AUTO) 0.6 X 10^3 (0.0-1.0); MONOCYTES % (AUTO) 8 % (0-12); NEUTROPHILS % (AUTO) 84 % (42-75); PLATELET COUNT 394 10^3/uL (130-400); RED CELL DISTRIBUTION WIDTH 15.4 % (10.0-14.5); WHITE BLOOD COUNT 8.4 10^3/uL (4.3-11.0)
[2019-05-10 14:43] LABS: INR 1.1 (0.8-1.4); PROTHROMBIN TIME PATIENT 14.8 SEC (12.2-14.7)
[2019-05-10 14:48] LABS: ALBUMIN 3.8 GM/DL (3.2-4.5); BILIRUBIN,TOTAL 0.4 MG/DL (0.1-1.0); CALCIUM 10.5 MG/DL (8.5-10.1); CREATININE SERUM 2.07 MG/DL (0.60-1.30); POTASSIUM 4.3 MMOL/L (3.6-5.0); TOTAL PROTEIN 7.9 GM/DL (6.4-8.2)
[2019-05-10 14:56] LABS: BILIRUBIN,URINE NEGATIVE (NEGATIVE); CLARITY,URINE CLOUDY; COLOR,URINE YELLOW; GLUCOSE, URINE (UA) NEGATIVE (NEGATIVE); KETONES,URINE NEGATIVE (NEGATIVE); LEUKOCYTE ESTERASE ,URINE 2+ (NEGATIVE); NITRITE,URINE POSITIVE (NEGATIVE); PH,URINE 6.5 (5-9); PROTEIN,URINE 1+ (NEGATIVE)
[2019-05-10 15:04] LABS: BACTERIA,URINE MODERATE /HPF; WBC,URINE >100 /HPF
--- NOTE | 2019-05-10 15:09 | Diagnostic Imaging Report ---
PROCEDURE: CT head wo r/o stroke. TECHNIQUE: Multiple contiguous axial images were obtained through the brain without the use of intravenous contrast. Auto Exposure Controls were utilized during the CT exam to meet ALARA standards for radiation dose reduction. INDICATION: Weakness and hallucinations. COMPARISON: Exam compared with head CT of 12/08/2016. FINDINGS: Periventricular white matter hypodensity, likely chronic small vessel disease, is a stable finding. Cerebral cortical atrophy is stable finding. No alvaro hydrocephalus. Intracranial atherosclerotic vascular calcifications, a stable chronic finding. No focal or generalized cerebral edema. No evidence for elevated intracranial pressures. No mass or mass effect. No findings of hemorrhage. IMPRESSION: Stable chronic findings. Dictated by: Dictated on workstation # [id number]
[2019-05-10 15:10] LABS: BAND NEUTROPHILS 3 %; BASOPHILS % (MANUAL) 1 %; EOSINOPHILS % (MANUAL) 1 %; LYMPHOCYTES % (MANUAL) 6 %; MONOCYTES % (MANUAL) 2 %; NEUTROPHILS % (MANUAL) 87 %; RBC MORPH NORMAL
[2019-05-10 15:11] LABS: FREE T4 (FREE THYROXINE) 1.1 NG/DL (0.70-1.48)
--- NOTE | 2019-05-10 15:36 | Diagnostic Imaging Report ---
INDICATION: Altered level of consciousness. COMPARISON: Study compared with radiograph 12/12/2018. FINDINGS: Sternal wires are midline. The heart size is within normal limits. No focal consolidation. No effusion or pneumothorax. IMPRESSION: Stable chest. Dictated by: Dictated on workstation # [id number]
[2019-05-10] MEDS ORDERED: cefTRIAXone FOR IV USE 1,000 MG in WATER (STERILE) FOR INJECTION 10 ML IV ONE (16:00)
--- NOTE | 2019-05-10 16:11 | ED General ---
General Chief Complaint: Altered Mental Status Stated Complaint: STROKE SYMPTOMS Nursing Triage Note: PT TO OR 2 PER W/C W/ C/O ALTERED LOC PER ONSET LAST NOC. REPORTS PT RECENTLY HAD A KIDNEY REMOVED AT Nursing Sepsis Screen: No Definite Risk Source of Information: Patient Exam Limitations: No Limitations History of Present Illness Date Seen by Provider: May 10, 2019 Time Seen by Provider: 14:06 Initial Comments This 83-year-old gentleman presents to the emergency room with acute delirium. Symptoms seemed to start last night when his family noted him to be acting "goofy". He was saying things that did not make sense. He also reportedly bumped his head and has some swelling on the right upper lip. He cannot give any details of that incident. Patient had a left nephrectomy performed on March 26 for removal of cancer. 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 This was performed at . He is afebrile. He lacks focal neurologic deficits but does seem mildly to moderately confused on presentation. He has a urostomy on the right abdomen from the right ureter. reports that he has not been able to figure out how to drain the urostomy today when he normally performs this task independently. Allergies and Home Medications Allergies Coded Allergies: NKANo Known Allergies (Verified Allergy, Mild, 11/24/11) Uncoded Allergies: BEE STINGS (Allergy, Severe, SOA/HIVES, 11/01/10) Home Medications Albuterol Sulfate 2.5 Mg/0.5 Ml Vial.neb, 2.5 MG IH Q4H PRN for SHORTNESS OF BREATH Prescribed by: YAW CELESTE on 02/17/181817 Aspirin 81 Mg Tablet.dr, 81 MG PO [place], (Reported) Calcium Carbonate/Vitamin D3 1 Each Tablet, 1 TAB PO BID, (Reported) Cefdinir 300 Mg Capsule, 300 MG PO BID Prescribed by: TAVIA LOPEZ on 03/21/19 1319 Cephalexin 500 Mg Capsule, 500 MG PO TID Prescribed by: LOUISA ARBOLEDA on 09/22/17 1222 Cyclobenzaprine HCl 10 Mg Tablet, 10 MG PO BID PRN for MUSCLE SPASMS, (Reported) Diltiazem HCl 90 Mg Tablet, 45 MG PO HS, (Reported) TAKES 1/2 OF A (90 MG) TABLET / TAKES FOR LEG CRAMPS Diphenhydramine HCl 25 Mg Capsule, 25 MG PO BID, (Reported) Docusate Sodium 100 Mg Capsule, 100 MG PO DAILY, (Reported) Docusate Sodium 100 Mg Capsule, 200 MG PO HS, (Reported) TAKES 2 (100 MG) CAPSULES Furosemide 40 Mg Tablet, 40 MG PO DAILY PRN for PITTING EDEMA, (Reported) Gemfibrozil 600 Mg Tablet, 600 MG PO DAILY, (Reported) Hydrocodone Bit/Acetaminophen 1 Each Tablet, 1 TAB PO EVERY 4-6 HOURS PRN for PAIN, (Reported) Levothyroxine Sodium 50 Mcg Tablet, 50 MCG PO DAILY, (Reported) Mirabegron 50 Mg Tab.er.24h, 50 MG PO DAILY@1200, (Reported) Multivitamin 1 Each Tablet, 1 TAB PO DAILY, (Reported) Nitroglycerin 0.4 Mg Tab.subl, 0.4 MG SL UD PRN for CHEST PAIN, (Reported) 1 TAB EVERY 5 MINUTES UP TO 3 DOSES WITHIN 15 MINUTES; CALL 911 IF NO RELIEF Nitroglycerin 0.4 Mg Tab.subl, 0.4 MG SL when necessary Prescribed by: YULIET PETER on 06/07/16 1159 [place] 3 Polyunsat Fatty Acids 1,000 Mg Cap, 2,000 MG PO DAILY, (Reported) Oseltamivir Phosphate 75 Mg Cap, 75 MG PO BID Prescribed by: ASHLY VASQUEZ on 05/02/17 1354 Potassium Gluconate 90 Mg Tablet, 90 MG PO UD, (Reported) ONLY TAKES WITH FUROSEMIDE Pramipexole Di-HCl 0.25 Mg Tablet, 0.25 MG PO DAILY, (Reported) Pramipexole Di-HCl 0.25 Mg Tablet, 0.5 MG PO HS, (Reported) TAKES 2 (0.25 MG) TABLETS Rosuvastatin Calcium 20 Mg Tablet, 20 MG PO HS, (Reported) Solifenacin Succinate 5 Mg Tablet, 5 MG PO DAILY@1200, (Reported) Tamsulosin HCl 0.4 Mg Cap.er.24h, 0.4 MG PO HS, (Reported) Trazodone HCl 150 Mg Tablet, 150 MG PO HS PRN for SLEEP, (Reported) [Antivert] , 25 MG 4 times a day PRN for Dizziness Prescribed by: YULIET PETER on 08/29/16 1500 [Prevagen] , 1 TAB PO DAILY, (Reported) Patient Home Medication List Home Medication List Reviewed: Yes Review of Systems Review of Systems Constitutional: weakness EENTM: no symptoms reported Respiratory: no symptoms reported Cardiovascular: no symptoms reported Gastrointestinal: see HPI Genitourinary: see HPI Musculoskeletal: no symptoms reported Skin: see HPI Psychiatric/Neurological: See HPI Hematologic/Lymphatic: No Symptoms Reported Immunological/Allergic: no symptoms reported Past Ycbgjse-Owoozw-Zgpsto Hx Past Med/Social Hx: Reviewed and Corrections made Patient Social History Alcohol Use: Denies Use Recreational Drug Use: No Smoking Status: Former Smoker Former Smoker, Quit: Jun 07, 1974 2nd Hand Smoke Exposure: No Recent Foreign Travel: No Contact w/Someone Who Travel: No Recent Infectious Disease Expo: No Recent Hopitalizations: No Immunizations Up To Date Tetanus Booster (TDap): Unknown Date of Pneumonia Vaccine: Feb 03, 2015 Date of Influenza Vaccine: Jan 13, 2016 Seasonal Allergies Seasonal Allergies: Yes Past Medical History Surgeries: Yes (LEFT WRIST, LEFT KNEE SCOPE, TOTAL LEFT KNEE, HEMORRHOIDS,TURP ) Abdominal, Bladder Surgery, Coronary Stent, Joint Replacement, Nephrectomy Respiratory: No Currently Using CPAP: No Currently Using BIPAP: No Cardiac: Yes (STENTS X5) Coronary Artery Disease, Heart Attack, High Cholesterol Neurological: No Reproductive Disorders: No Sexually Transmitted Disease: No HIV/AIDS: No Prostate Problems Gastrointestinal: Yes (colostomy) Obstructive Bowel Musculoskeletal: Yes Arthritis Endocrine: No Hearing Impairment: Denies, Hearing Aide Right, Hearing Aide Left Cancer: Yes (NOSE) Bladder, Prostate Psychosocial: No Integumentary: No Blood Disorders: No Adverse Reaction/Blood Tranf: No Family Medical History Arthritis 19 FATHER 19 MOTHER Diabetes mellitus 19 FATHER Myocardial infarction 19 FATHER 19 MOTHER Respiratory disorder G8 SISTER No Family History of: AIDS [place]'s disease Alcoholism Alzheimer's disease Cancer of mouth Colon cancer Completed stroke Dementia Kidney disease Parkinson's disease Prostate cancer Psychosocial problem Seizure disorder Severe allergy Thyroid disease Tuberculosis No Pertinent Family Hx Physical Exam Vital Signs Vital Signs - First Documented 05/10/19 14:05 Temp 36.5 Pulse 93 Resp 18 B/P (MAP) 146/74 (98) Pulse Ox 95 O2 Delivery Room Air Capillary Refill : Less Than 3 Seconds Height, Weight, BMI Height: 5'7.00" Weight: 195lbs. 0oz. 88.139137wk; 25.00 BMI Method:Stated General Appearance: No Apparent Distress, WD/WN HEENT: PERRL/EOMI, Normal ENT Inspection Neck: Normal Inspection Respiratory: Lungs Clear, Normal Breath Sounds, No Accessory Muscle Use, No Respiratory Distress Cardiovascular: Regular Rate, Rhythm, No Edema, No Murmur Gastrointestinal: Normal Bowel Sounds, Soft, Tenderness (appropriately tender at the surgical site), Other (kelsi intact over the incision. Minor erythema stated as unchanged since the time of surgery. Wound is clean, dry, and intact. 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 Mild global weakness. No focal deficits) Skin: Normal Color, Warm/Dry, Other (see above) Focused Exam Lactate Level 05/10/19 14:10: Lactic Acid Level 0.97 Lactic Acid Level Procedures/Interventions Suture Size: 4-0 Progress/Results/Core Measures Suspected Sepsis Recent Fever Within 48 Hours: No Infection Criteria Present: None New/Unexplained Altered Menta: No Sepsis Screen: No Definite Risk SIRS Temperature: Pulse: 93 Respiratory Rate: 18 Laboratory Tests 05/10/19 14:10: White Blood Count 8.4 Blood Pressure 146 /74 Mean: 98 05/10/19 14:10: Lactic Acid Level 0.97 Laboratory Tests 05/10/19 14:10: Creatinine 2.07H, INR Comment 1.1, Platelet Count 394, Total Bilirubin 0.4 Results/Orders Lab Results Laboratory Tests Test 05/10/19 14:10 05/10/19 14:49 Range/Units White Blood Count 8.4 4.3-11.0 10^3/uL Red Blood Count 3.78 L 4.35-5.85 10^6/uL Hemoglobin 11.1 L 13.3-17.7 G/DL Hematocrit 35 L 40-54 % Mean Corpuscular Volume 92 80-99 FL Mean Corpuscular Hemoglobin 29 25-34 PG Mean Corpuscular Hemoglobin Concent 32 32-36 G/DL Red Cell Distribution Width 15.4 H 10.0-14.5 % Platelet Count 394 130-400 10^3/uL Mean Platelet Volume 9.1 7.4-10.4 FL Neutrophils (%) (Auto) 84 H 42-75 % Lymphocytes (%) (Auto) 6 L 12-44 % Monocytes (%) (Auto) 8 0-12 % Eosinophils (%) (Auto) 2 0-10 % Basophils (%) (Auto) 0 0-10 % Neutrophils # (Auto) 7.0 1.8-7.8 X 10^3 Lymphocytes # (Auto) 0.5 L 1.0-4.0 X 10^3 Monocytes # (Auto) 0.6 0.0-1.0 X 10^3 Eosinophils # (Auto) 0.2 0.0-0.3 10^3/uL Basophils # (Auto) 0.0 0.0-0.1 10^3/uL Neutrophils % (Manual) 87 % Lymphocytes % (Manual) 6 % Monocytes % (Manual) 2 % Eosinophils % (Manual) 1 % Basophils % (Manual) 1 % Band Neutrophils 3 % Blood Morphology Comment NORMAL Prothrombin Time 14.8 H 12.2-14.7 SEC INR Comment 1.1 0.8-1.4 Activated Partial Thromboplast Time 43 H 24-35 SEC Sodium Level 137 135-145 MMOL/L Potassium Level 4.3 3.6-5.0 MMOL/L Chloride Level 100 98-107 MMOL/L Carbon Dioxide Level 25 21-32 MMOL/L Anion Gap 12 5-14 MMOL/L Blood Urea Nitrogen 23 H 7-18 MG/DL Creatinine 2.07 H 0.60-1.30 MG/DL Estimat Glomerular Filtration Rate 31 BUN/Creatinine Ratio 11 Glucose Level 120 H 70-105 MG/DL Lactic Acid Level 0.97 0.50-2.00 MMOL/L Calcium Level 10.5 H 8.5-10.1 MG/DL Corrected Calcium 10.7 H 8.5-10.1 MG/DL Total Bilirubin 0.4 0.1-1.0 MG/DL Aspartate Amino Transf (AST/SGOT) 12 5-34 U/L Alanine Aminotransferase (ALT/SGPT) 12 0-55 U/L Alkaline Phosphatase 81 40-136 U/L Total Protein 7.9 6.4-8.2 GM/DL Albumin 3.8 3.2-4.5 GM/DL Thyroid Stimulating Hormone (TSH) 2.01 0.35-4.94 UIU/ML Free Thyroxine 1.10 0.70-1.48 NG/DL Urine Color YELLOW Urine Clarity CLOUDY Urine pH 6.5 5-9 Urine Specific [place] 1.020 1.016-1.022 Urine Protein 1+ H NEGATIVE Urine Glucose (UA) NEGATIVE NEGATIVE Urine Ketones NEGATIVE NEGATIVE Urine Nitrite POSITIVE H NEGATIVE Urine Bilirubin NEGATIVE NEGATIVE Urine Urobilinogen 0.2 < = 1.0 MG/DL Urine Leukocyte Esterase 2+ H NEGATIVE Urine RBC (Auto) 2+ H NEGATIVE Urine RBC 5-10 H /HPF Urine WBC >100 H /HPF Urine Crystals NONE /LPF Urine Bacteria MODERATE H /HPF Urine Casts NONE /LPF Urine Mucus NEGATIVE /LPF Urine Culture Indicated CULTURE PENDING My Orders Orders - YAW SPAULDING MD Cbc With Automated Diff (05/10/19 14:16) Comprehensive Metabolic Panel (05/10/19 14:16) Blood Culture (05/10/19 14:16) Sputum Culture (05/10/19 14:16) Urinalysis (05/10/19 14:16) Urine Culture (05/10/19 14:16) Protime With Inr (05/10/19 14:16) Partial Thromboplastin Time (05/10/19 14:16) Chest 1 View, Ap/Pa Only (05/10/19 14:16) Ed Iv/Invasive Line Start (05/10/19 14:16) Ed Iv/Invasive Line Start (05/10/19 14:16) Vital Signs Adult Sepsis Patie Q15M (05/10/19 14:16) O2 (05/10/19 14:16) Remove Rings In Anticipation O (05/10/19 14:16) Lactic Acid Analyzer (05/10/19 14:16) Ns Iv 1000 Ml (Sodium Chloride 0.9%) (05/10/19 14:16) Ct Head Wo-R/O Stroke (05/10/19 14:19) Thyroid Stimulating Hormone (05/10/19 14:21) Free T4 (Free Thyroxine) (05/10/19 14:21) Manual Differential (05/10/19 14:10) Ceftriaxone For Iv Use (Rocephin For I (05/10/19 16:00) Piperacillin Sodium/Tazobactam (Zosyn Vi (05/10/19 16:15) Medications Given in ED Current Medications Medications Dose Ordered Sig/Fahad Route Start Time Stop Time Status Last Admin Dose Admin Piperacillin Sod/ Tazobactam Sod 4.5 gm/Sodium Chloride 100 ml @ 200 mls/hr ONCE ONCE IV 05/10/19 16:15 05/10/19 16:44 DC 05/10/19 16:31 200 MLS/HR Vital Signs/I&O 05/10/19 05/10/19 05/10/19 14:05 17:06 18:30 Temp 36.5 Pulse 93 91 Resp 18 17 B/P (MAP) 146/74 (98) 146/74 Pulse Ox 95 95 O2 Delivery Room Air Room Air Room Air Capillary Refill : Less Than 3 Seconds Blood Pressure Mean: 98 Progress Note : Progress Note Patient's creatinine was elevated at 2.07. His thinks this may be near his new baseline after nephrectomy as his creatinine hovered around 2 at [facility]. He was found to have evidence of urinary tract infection on urinalysis. Given his symptoms, I believe this is true infection rather than colonization. CT of the head demonstrated no evidence of mass or hemorrhage. Patient is being admitted for observation with altered mental status and urinary tract infection. A dose of Zosyn was administered in the emergency room. He had been prophylactically taking Keflex at home. A liter of IV fluids was initiated in the ER as well. ECG Initial ECG Impression Date: May 10, 2019 Initial ECG Impression Time: 14:11 Initial ECG Rate: 93 Initial ECG Rhythm: Normal Sinus Initial ECG Intervals: Normal Comment Normal sinus rhythm with no ST elevation or depression. No abnormal intervals or axis deviation. Diagnostic Imaging Diagonstic Imaging: CT Plain Films/CT/US/NM/MRI: head Comments NAME: [facility] REC#: [id number] PT STATUS: ADM Suleman : 1935 PHYSICIAN: YAW SPAULDING MD ADMIT DATE: 05/10/19/ Signed Date of Exam:05/10/19 CT HEAD WO-R/O STROKE PROCEDURE: CT head wo r/o stroke. TECHNIQUE: Multiple contiguous axial images were obtained through the brain without the use of intravenous contrast. Auto Exposure Controls were utilized during the CT exam to meet ALARA standards for radiation dose reduction. INDICATION: Weakness and hallucinations. COMPARISON: Exam compared with head CT of 12/08/2016. FINDINGS: Periventricular white matter hypodensity, likely chronic small vessel disease, is a stable finding. Cerebral cortical atrophy is stable finding. No alvaro hydrocephalus. Intracranial atherosclerotic vascular calcifications, a stable chronic finding. No focal or generalized cerebral edema. No evidence for elevated intracranial pressures. No mass or mass effect. No findings of hemorrhage. IMPRESSION: Stable chronic findings. Dictated by: Dictated on workstation # [id number] Dict: 05/10/19 1503 Trans: 05/10/19 1739 [id number] [id number] Interpreted by: CELESTINA GARCIA Electronically signed by: CELESTINA GARCIA 05/10/19 1739 Diagonstic Imaging: Xray Plain Films/CT/US/NM/MRI: chest Comments NAME: [facility] REC#: [id number] PT STATUS: ADM Suleman : 1935 PHYSICIAN: YAW SPAULDING MD ADMIT DATE: 05/10/19/ Signed Date of Exam:05/10/19 CHEST 1 VIEW, AP/PA ONLY INDICATION: Altered level of consciousness. COMPARISON: Study compared with radiograph 12/12/2018. FINDINGS: Sternal wires are midline. The heart size is within normal limits. No focal consolidation. No effusion or pneumothorax. IMPRESSION: Stable chest. Dictated by: Dictated on workstation # [id number] Dict: 05/10/19 1533 Trans: 05/10/19 1739 [id number] Interpreted by: CELESTINA GARCIA Electronically signed by: CELESTINA GARCIA 05/10/19 1739 Departure Communication (Admissions) Time/Spoke to Admitting Phy: 16:10 Dr. Friedman Impression Primary Impression: Urinary tract infection Qualified Codes: N39.0 - Urinary tract infection, site not specified Additional Impressions: Delirium Renal insufficiency Disposition: ADMITTED INPATIENT Condition: Improved Admissions Decision to Admit Reason: Admit from ER (General) Decision to Admit/Date: May 10, 2019 Time/Decision to Admit Time: 16:00 Departure-Patient Inst. Referrals: BLAKE BOYCE MD (PCP/Family) Primary Care Physician Copy Copies To 1: BLAKE BOYCE MD, JOSHUA T MD May 10, 2019 16:11
[2019-05-10] MEDS ORDERED: PIPERACILLIN SODIUM/TAZOBACTAM 4.5 GM in NS (IVPB) 100 ML IV ONE (16:15)
--- NOTE | 2019-05-10 16:54 | NUR ---
1ST ATTEMPT TO CALL REPORT. RN TO RETURN CALL.
--- NOTE | 2019-05-10 17:04 | History & Physical-Hospitalist ---
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 He is very hard of hearing and unable to provide all the history so his who is an RN fills in the details. She states that he underwent nephrectomy on 04/26 due to RCC. His postoperative stay was complicated by either and ileus or SBO which required an NGT but otherwise he has been doing well. He was supposed to havea follow up appointment on 05/13 with [facility] for stitch removal. Unfortunately over the past couple of days he has developed confusion. His states he was eating bread with a fork and just seemed off. She believed this was due to his muscle relaxer because he was hallucinating but when it continued and he wouldn't follow commands today she decided to bring him to the ER. Last night he was up every 20m per due to the confusion. Of note he has also been complaining of shoulder pain and Dr Mock had ordered an MRI for evaluation that was to be done next week after the kelsi were removed. In the ER a UA was done and consistent with infection. He does not have a leukocytosis, fever, or any other evidence of sepsis. He is being admitted to observation due to recent nephrectomy and indwelling stent. Source: patient, family Date Seen 05/10/19 Time Seen by a Provider: 16:53 Attending Physician Stacia Friedman MD PCP Blake Boyce MD Referring Physician Date of Admission May 10, 2019 at 16:15 Home Medications & Allergies Home Medications Reviewed patient Home Medication Reconciliation performed by pharmacy medication reconciliations glass installer technician and/or nursing. Patients Allergies have been reviewed. Allergies Allergies Coded Allergies NKANo Known Allergies (Verified Allergy, Mild, 11/24/11) Uncoded Allergies BEE STINGS ( Allergy, Severe, SOA/HIVES, 11/01/10) Past Abiwuus-Mhyddi-Nkmnkc Hx Past Med/Social Hx: Reviewed Nursing Past Med/Soc Hx, Reviewed and Corrections made Patient Social History Marrital Status: Alcohol Use: Denies Use Recreational Drug Use: No Smoking Status: Former Smoker Former Smoker, Quit: Jun 07, 1974 2nd Hand Smoke Exposure: No Recent Foreign Travel: No Contact w/other who traveled: No Recent Hopitalizations: No Recent Infectious Disease Expo: No Immunizations Up To Date Tetanus Booster (TDap): Unknown Date of Pneumonia Vaccine: Feb 03, 2015 Date of Influenza Vaccine: Jan 13, 2016 Seasonal Allergies Seasonal Allergies: Yes Past Medical History Surgeries: Abdominal, Bladder Surgery, Coronary Stent, Joint Replacement, Nephrectomy Currently Using CPAP: No Currently Using BIPAP: No Cardiac: Coronary Artery Disease, Heart Attack, High Cholesterol Reproductive: No Sexually Transmitted Disease: No HIV/AIDS: No Genitourinary: Prostate Problems Gastrointestinal: Obstructive Bowel Musculoskeletal: Arthritis Hearing Impairment: Denies, Hearing Aide Right, Hearing Aide Left Cancer: Bladder, Prostate History of Blood Disorders: No Adverse Reaction to Blood Miranda: No Family History Arthritis 19 FATHER 19 MOTHER Diabetes mellitus 19 FATHER Myocardial infarction 19 FATHER 19 MOTHER Respiratory disorder G8 SISTER No Family History of: AIDS [place]'s disease Alcoholism Alzheimer's disease Cancer of mouth Colon cancer Completed stroke Dementia Kidney disease Parkinson's disease Prostate cancer Psychosocial problem Seizure disorder Severe allergy Thyroid disease Tuberculosis No Pertinent Family Hx Review of Systems ROS-Unable to Obtain: limited by confusion and [place] Constitutional: No chills, No fever EENTM: no symptoms reported Respiratory: no symptoms reported Cardiovascular: no symptoms reported Gastrointestinal: no symptoms reported, other Genitourinary: see HPI Musculoskeletal: no symptoms reported Skin: no symptoms reported Psychiatric/Neurological: See HPI Physical Exam Physical Exam Vital Signs Vital Signs - First Documented 05/10/19 14:05 Temp 36.5 Pulse 93 Resp 18 B/P (MAP) 146/74 (98) Pulse Ox 95 O2 Delivery Room Air Capillary Refill : Less Than 3 Seconds Height, Weight, BMI Height: 5'7.00" Weight: 195lbs. 0oz. 88.992582xb; 25.00 BMI Method:Stated General Appearance: No Apparent Distress, Chronically ill, Obese HEENT: PERRL/EOMI, Moist Mucous Membranes; No Scleral Icterus (L), No Scleral Icterus (R) Neck: Normal Inspection, Supple Respiratory: Lungs Clear, No Accessory Muscle Use, No Respiratory Distress Cardiovascular: Regular Rate, Rhythm, No Murmur Gastrointestinal: Normal Bowel Sounds, Soft, Other (obese abdomen with erythema midline surgical incision, appears to be well healling with some erythema and granulation tissue noted but not purlence, urostomy in place) Extremity: No Calf Tenderness, No Pedal Edema Neurologic/Psychiatric: Alert, Normal Mood/Affect, Other (oriented to person and place) Skin: Normal Color, Warm/Dry Results Results/Procedures Labs Laboratory Tests 05/10/19 14:10 Patient resulted labs reviewed. Imaging: Reviewed Imaging Report Assessment/Plan Admission Diagnosis UTI with ureteral stent Admission Status: Observation Assessment and Plan UTI with ureteral stent and urostomy recent nephrectomy RCC CKD Continue on Zosyn No evidence of sepsis Called placed to [facility], resident unable to give any recommendations but gave me attending pager number, I have placed page to him to ensure appropriate antibiotic coverage Will await c/s given recent surgery and ureteral stent CAD s/p CABG Continue home meds when med rec done Hypothyroidism Continue home synthroid Diagnosis/Problems Diagnosis/Problems (1) Urinary tract infection Status: Acute Qualifiers: Urinary tract infection type: site unspecified Hematuria presence: without hematuria Qualified Codes: N39.0 - Urinary tract infection, site not specified (2) Renal insufficiency Status: Acute (3) Delirium Status: Acute (4) CAD (coronary artery disease) (5) Hypothyroidism Copy Copies To 1: BLAKE BOYCE MD, KATELYN M MD May 10, 2019 17:04
[2019-05-10 17:35] VITALS: BP 127/57
--- NOTE | 2019-05-10 17:45 | NUR ---
YORDAN HAMILTON JR admitted to room 433-1, with an admitting diagnosis of , on 05/10/19 from ED via wheelchair, accompanied by staff and . YORDAN HAMILTON JR introduced to surroundings, call light, bed controls, phone, TV, temperature control, lights, meal times, smoking policy, visitor policy, side rail policy, bathrooms and showers. Patient Rights given to patient in the handbook. YORDAN HAMILTON JR verbalizes understanding that [facility] is not responsible for the loss or damage to any personal effects or valuables that are kept in the patients possession during their hospitalization. The following Patient Care Plans were discussed with the patient: Discharge Planning, pain management, dehydration, and medications. YORDAN HAMILTON JR verbalizes understanding of Interdisciplinary Patient Education. Patient and/or family were informed about the Rapid Response Team and its purpose.
[2019-05-10] MEDS ORDERED: CATHETER FLUSH 10 ML SYR IV PRN (18:00)
[2019-05-10] MEDS ORDERED: ONDANSETRON 4 MG/2 ML (SDV) Z0FRAN IV PRN ×2 (18:00→19:45)
[2019-05-10 18:06] VITALS: BP 127/57
[2019-05-10] MEDS: NS IV 1000 ML 1,000 ML IV SCH (18:09)
[2019-05-10 19:37] VITALS: BP 124/69
[2019-05-10] MEDS ORDERED: MILK OF MAGNESIA 400 MG/5 ML 30 ML UDC PO PRN (19:45)
[2019-05-10] MEDS ORDERED: ANTACID SUSP 30 ML UDC (MYLANTA) PO PRN (19:45)
[2019-05-10] MEDS ORDERED: PATIENT MAY USE OWN MEDS, ALL MC SCH (19:45)
[2019-05-10] MEDS ORDERED: MELATONIN 3 MG TABLET PO PRN (19:45)
[2019-05-10] MEDS ORDERED: ACETAMINOPHEN 325 MG TABLET PO PRN (19:45)
[2019-05-10] MEDS: PRAMIPEXOLE 0.125 MG (MIRAPEX) TABLET PO SCH (20:25)
[2019-05-10] MEDS: TEMAZEPAM 7.5 MG CAP (RESTORIL) PO PRN (20:25)
[2019-05-10] MEDS ORDERED: ROSUVASTATIN 20 MG (CRESTOR) TABLET PO SCH (21:00)
[2019-05-10] MEDS ORDERED: CEPH-506 PO (22:54)
[2019-05-10] MEDS ORDERED: ONDA4TAB11 PO ×2 (22:54)
[2019-05-10] MEDS ORDERED: ISOS30TA3 PO ×2 (22:54)
[2019-05-10] MEDS ORDERED: ACET325C7 PO ×2 (22:54)
[2019-05-10] MEDS ORDERED: LORA1TAB59 PO ×2 (22:54)
[2019-05-10] MEDS ORDERED: BUDE10.22 IH (22:54)
[2019-05-10] MEDS ORDERED: OMEP40CA27 PO ×2 (22:54)
[2019-05-10] MEDS ORDERED: LISI-556 PO ×2 (22:54)
[2019-05-10] MEDS ORDERED: TRAM-42 PO ×2 (22:54)
[2019-05-10] MEDS ORDERED: TEMA30CA6 PO ×2 (22:57)
[2019-05-10] MEDS: PIPERACILLIN/TAZO 4.5 GM/NS 100 ML IV SCH ×2 (23:39)
[2019-05-11] VITALS: BP 135/70
[2019-05-11] MEDS: NS IV 1000 ML 1,000 ML IV SCH ×4 (03:46→23:58)
[2019-05-11 04:00] VITALS: BP 138/65
[2019-05-11] MEDS: PIPERACILLIN/TAZO 4.5 GM/NS 100 ML IV SCH ×6 (06:23→23:54)
[2019-05-11] MEDS ORDERED: LEVOTHYROXINE 50 MCG (LEVOTHROID) TAB PO SCH (06:30)
[2019-05-11 08:00] VITALS: BP 164/75
[2019-05-11] MEDS ORDERED: ISOSORBIDE MONONITRATE 30 MG (IMDUR) TAB PO SCH (09:00)
[2019-05-11] MEDS ORDERED: lisINopril 5 MG (PRINIVIL) TABLET PO SCH (09:00)
[2019-05-11] MEDS: ISOSORBIDE MONONITRATE 30 MG (IMDUR) TAB PO SCH (09:17)
[2019-05-11] MEDS: LEVOTHYROXINE 50 MCG (LEVOTHROID) TAB PO SCH (09:18)
[2019-05-11] MEDS: LISINOPRIL 2.5 MG TABLET PO SCH (10:10)
--- NOTE | 2019-05-11 10:42 | Progress Note - Hospitalist ---
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 He is very hard of hearing and unable to provide all the history so his who is an RN fills in the details. She states that he underwent nephrectomy on 04/26 due to RCC. His postoperative stay was complicated by either and ileus or SBO which required an NGT but otherwise he has been doing well. He was supposed to havea follow up appointment on 05/13 with [facility] for stitch removal. Unfortunately over the past couple of days he has developed confusion. His states he was eating bread with a fork and just seemed off. She believed this was due to his muscle relaxer because he was hallucinating but when it continued and he wouldn't follow commands today she decided to bring him to the ER. Last night he was up every 20m per due to the confusion. Of note he has also been complaining of shoulder pain and Dr Mock had ordered an MRI for evaluation that was to be done next week after the kesli were removed. In the ER a UA was done and consistent with infection. He does not have a leukocytosis, fever, or any other evidence of sepsis. He is being admitted to observation due to recent nephrectomy and indwelling stent. Subjective/Events-last exam Pt reports doing better today. More alert and talkative. Confused on what day it is but otherwise oriented to person and place. Discussed results of urine culture so far. Focused Exam Lactate Level 05/10/19 14:10: Lactic Acid Level 0.97 Objective Exam Vital Signs Vital Signs Date Time Temp Pulse Resp B/P (MAP) Pulse Ox O2 Delivery O2 Flow Rate FiO2 05/11/19 08:00 Room Air 05/11/19 08:00 37.1 85 20 164/75 (104) 96 Capillary Refill : Less Than 3 Seconds General Appearance: No Apparent Distress, Chronically ill Respiratory: Lungs Clear, No Respiratory Distress Cardiovascular: Regular Rate, Rhythm, No Murmur Gastrointestinal: Normal Bowel Sounds, Soft, Other (urostomy in place) Results/Procedures Lab Laboratory Tests 05/10/19 14:10 Patient resulted labs reviewed. Imaging: Reviewed Imaging Report Assessment/Plan Assessment and Plan Assess & Plan/Chief Complaint UTI with ureteral stent and urostomy recent nephrectomy RCC CKD Continue on Zosyn Cultures growing pseudomonas Called placed to [facility] multiple times but was unable to speak to attending Will likely be able to DC tomorrow once sensitivities back so he can keep appointment on 05/13 with [facility] CAD s/p CABG Continue home meds as able (he refused meds this morning until his gets here) Hypothyroidism Continue home synthroid (though he refused them this morning as above) Diagnosis/Problems Diagnosis/Problems (1) Urinary tract infection Status: Acute Qualifiers: Urinary tract infection type: site unspecified Hematuria presence: without hematuria Qualified Codes: N39.0 - Urinary tract infection, site not specified (2) Renal insufficiency Status: Acute (3) Delirium Status: Acute (4) CAD (coronary artery disease) (5) Hypothyroidism Clinical Quality Measures DVT/VTE Risk/Contraindication: Risk Factor Score Per Nursin RFS Level Per Nursing on Admit: 3=High PAOLA BRUNSON MD May 11, 2019 10:42
[2019-05-11 11:30] VITALS: BP 122/64
[2019-05-11 15:47] VITALS: BP 97/64
[2019-05-11 20:07] VITALS: BP 107/61
[2019-05-11] MEDS: ROSUVASTATIN 20 MG (CRESTOR) TABLET PO SCH (21:13)
[2019-05-11] MEDS: TEMAZEPAM 7.5 MG CAP (RESTORIL) PO PRN (21:14)
[2019-05-11] MEDS: PRAMIPEXOLE 0.125 MG (MIRAPEX) TABLET PO SCH (21:16)
[2019-05-12] VITALS (7 sets, daily range): BP systolic 123–154; BP diastolic 61–80
[2019-05-12] MEDS: LEVOTHYROXINE 50 MCG (LEVOTHROID) TAB PO SCH (06:36)
[2019-05-12] MEDS: PIPERACILLIN/TAZO 4.5 GM/NS 100 ML IV SCH ×6 (06:37→23:32)
[2019-05-12] MEDS: ISOSORBIDE MONONITRATE 30 MG (IMDUR) TAB PO SCH (08:59)
[2019-05-12] MEDS: LISINOPRIL 2.5 MG TABLET PO SCH (09:00)
[2019-05-12] MEDS: NS IV 1000 ML 1,000 ML IV SCH (12:23)
--- NOTE | 2019-05-12 13:47 | Progress Note - Hospitalist ---
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 He is very hard of hearing and unable to provide all the history so his who is an RN fills in the details. She states that he underwent nephrectomy on 04/26 due to RCC. His postoperative stay was complicated by either and ileus or SBO which required an NGT but otherwise he has been doing well. He was supposed to havea follow up appointment on 05/13 with [facility] for stitch removal. Unfortunately over the past couple of days he has developed confusion. His states he was eating bread with a fork and just seemed off. She believed this was due to his muscle relaxer because he was hallucinating but when it continued and he wouldn't follow commands today she decided to bring him to the ER. Last night he was up every 20m per due to the confusion. Of note he has also been complaining of shoulder pain and Dr Mock had ordered an MRI for evaluation that was to be done next week after the kelsi were removed. In the ER a UA was done and consistent with infection. He does not have a leukocytosis, fever, or any other evidence of sepsis. He is being admitted to observation due to recent nephrectomy and indwelling stent. Subjective/Events-last exam Pt reports feeling well. No complaints. at bedside. Discussed plan to wait for C&S and they are agreeable to staying. Focused Exam Lactate Level 05/10/19 14:10: Lactic Acid Level 0.97 Objective Exam Vital Signs Vital Signs Date Time Temp Pulse Resp B/P (MAP) Pulse Ox O2 Delivery O2 Flow Rate FiO2 05/12/19 11:03 37.2 70 20 154/79 (104) 96 Room Air Capillary Refill : Less Than 3 SecondsLess Than 3 Seconds General Appearance: No Apparent Distress, Chronically ill, Obese Respiratory: Lungs Clear, No Respiratory Distress Cardiovascular: Regular Rate, Rhythm, No Murmur Gastrointestinal: Other (midline kelsi in place, urostomy in place) Neurologic/Psychiatric: Alert, Oriented x3 Results/Procedures Lab Patient resulted labs reviewed. Imaging: Reviewed Imaging Report Assessment/Plan Assessment and Plan Assess & Plan/Chief Complaint UTI with ureteral stent and urostomy recent nephrectomy RCC CKD Continue on Zosyn Cultures growing pseudomonas and another GNR, awaiting sensitivities Will likely be able to DC tomorrow once sensitivities back- called and spoke with [facility] and not back yet. CAD s/p CABG Continue home meds as able (he refused meds this morning until his gets here) Hypothyroidism Continue home synthroid (though he refused them this morning as above) Diagnosis/Problems Diagnosis/Problems (1) Urinary tract infection Status: Acute Qualifiers: Urinary tract infection type: site unspecified Hematuria presence: without hematuria Qualified Codes: N39.0 - Urinary tract infection, site not specified (2) Renal insufficiency Status: Acute (3) Delirium Status: Acute (4) CAD (coronary artery disease) (5) Hypothyroidism Clinical Quality Measures DVT/VTE Risk/Contraindication: Risk Factor Score Per Nursin RFS Level Per Nursing on Admit: 3=High PAOLA BRUNSON MD May 12, 2019 13:47
[2019-05-12] MEDS: PRAMIPEXOLE 0.125 MG (MIRAPEX) TABLET PO SCH (20:51)
[2019-05-12] MEDS: ROSUVASTATIN 20 MG (CRESTOR) TABLET PO SCH (20:51)
[2019-05-12] MEDS: TEMAZEPAM 7.5 MG CAP (RESTORIL) PO PRN (20:51)
[2019-05-13] MEDS: LEVOTHYROXINE 50 MCG (LEVOTHROID) TAB PO SCH (05:41)
[2019-05-13] MEDS: PIPERACILLIN/TAZO 4.5 GM/NS 100 ML IV SCH ×2 (06:40)
[2019-05-13 08:00] VITALS: BP 135/75
[2019-05-13] MEDS: ISOSORBIDE MONONITRATE 30 MG (IMDUR) TAB PO SCH (08:25)
[2019-05-13] MEDS: LISINOPRIL 2.5 MG TABLET PO SCH (08:25)
[2019-05-13] MEDS ORDERED: CEPH250C PO ×2 (11:02)
[2019-05-13] MEDS ORDERED: OMEGA PO ×2 (11:05)
[2019-05-13] MEDS ORDERED: TURMERIC PO ×2 (11:05)
[2019-05-13] MEDS ORDERED: ZINC PO ×2 (11:05)
[2019-05-13] MEDS ORDERED: CIPR250T3 PO ×2 (11:06)
--- NOTE | 2019-05-13 11:07 | NUR ---
SPOKE WITH PT (SHE HAD THE HOME MEDS)CALLED [facility], WELL GOING THRU THE EXT MED HISTORY TO COMPLETE THE MED REC. THE DIRECTIONS ON HIS HOME MEDS BOTTLES MATCHED HOW/WHEN THE PT'S SAID HE TAKES THEM PT NO LONGER TAKING PLAVIX 75MG 04-30-2019 CEPHALEXIN 250MG #/ DS 04-30-2019 CIPRO 250MG #3/3DS-THIS IS TO BE STARTED THE DAY BEFORE HIS STENT IS TO BE REMOVED- BUT HAS NOT STARTED THIS THERAPY YET. PT'S SAID HE HAD 2 INHALERS THAT HE USES PRN SYMBICORT (FILLED 03-25-2018) AND ALBUTEROL HFA ([facility] HAS NOT FILLED IN OVER 2 YEARS) AND ALSO HAS ALBUTEROL NEB SOLUTION (LAST FILLED 02-19-2018). DUE TO THE LONG DATING AND THE PRESCRIPTIONS BEING ON ALL THESE MEDS I DID NOT INCLUDE THEM ON THE MED REC. OTC MEDS: TYLENOL ASPIRIN 81MG- ONLY TAKES 2 DAYS PER WEEK CALCIUM W/ VIT D DOCUSATE MTV FISH OIL/TURMERIC/ZINC
[2019-05-13] MEDS ORDERED: CIPR500T4 PO ×4 (12:16→12:19)
--- NOTE | 2019-05-13 12:26 | Discharge Summary ---
Discharge Summary Hospital Course Was the Problem List Reviewed?: Yes Problems/Dx: (1) Urinary tract infection Status: Acute Qualifiers: Qualified Codes: N39.0 - Urinary tract infection, site not specified (2) Renal insufficiency Status: Acute (3) Delirium Status: Resolved (4) CAD (coronary artery disease) Status: Chronic (5) Hypothyroidism Status: Chronic Hospital Course Date of Admission: May 13, 2019 at 08:10 Admission Diagnosis: Urinary tract infection Family Physician/Provider: Min Boyce MD Date of Discharge: 05/13/19 Discharge Diagnosis: Urinary tract infection Hospital Course: Leonid Kennedy Jr is an 83-year-old male with recent nephrectomy and urostomy with ureteral stent placement due to renal cell carcinoma who presented with confusion and was admitted with a urinary tract infection. He was treated with IV antibiotics and improved. His urine culture grew 3 different bacteria including Pseudomonas, Citrobacter, and Klebsiella. All 3 were sensitive to ciprofloxacin and he was transitioned this to complete a course of outpatient an tibiotics. He should follow-up with his primary care physician. He should reschedule his follow-up with his surgeon. Labs and Pending Lab Test: Microbiology 05/10/19 Blood Culture - Preliminary, Resulted No growth 05/10/19 Urine Culture - Final, Complete Mixed Bacterial Gisela With Pseudomonas aeruginosa Citrobacter freundii complex Klebsiella oxytoca Home Meds Active Ciprofloxacin HCl 500 Mg Tablet 500 Mg PO BID 10 Days Reported Ciprofloxacin HCl 250 Mg Tablet 250 Mg PO DAILY PT HAS NOT STARTED TO BEGIN THE DAY PRIOR TO STENT REMOVAL [Trego/Zinc/Turmeric] 1 Cap PO BID Cephalexin 250 Mg Capsule 250 Cap PO BID FILLED 04-30-2019 #22/ DAY SUPPLY Restoril (Temazepam) 30 Mg Capsule 30 Mg PO HS Claritin-D 12 Hour Tablet (Loratadine/Pseudoephedrine) 1 Each Tab.er.12h 1 Each PO Q12H PRN Isosorbide Mononitrate ER (Isosorbide Mononitrate) 30 Mg Tab.er.24h 30 Mg PO DAILY Ultram (Tramadol HCl) 50 Mg Tablet 50 Mg PO Q6H PRN Ondansetron Odt (Ondansetron) 4 Mg Tab.rapdis 4 Mg PO Q6H PRN Omeprazole 40 Mg Capsule.dr 40 Mg PO DAILY Lisinopril 5 Mg Tablet 2.5 Mg PO HS Tylenol (Acetaminophen) 325 Mg Capsule 650 Mg PO Q6H PRN Mirapex (Pramipexole Di-HCl) 0.25 Mg Tablet 0.5 Mg PO HS TAKES 2 (0.25 MG) TABLETS Rosuvastatin Calcium 20 Mg Tablet 20 Mg PO HS Diltiazem HCl 90 Mg Tablet 90 Mg PO HS Docusate Sodium 100 Mg Capsule 200 Mg PO HS TAKES 2 (100 MG) CAPSULES Docusate Sodium 100 Mg Capsule 100 Mg PO DAILY Calcium 600 + Vit D 200 Tablet (Calcium Carbonate/Vitamin D3) 1 Each Tablet 1 Tab PO BID Gemfibrozil 600 Mg Tablet 600 Mg PO DAILY Levothyroxine Sodium 50 Mcg Tablet 50 Mcg PO DAILY Aspir 81 (Aspirin) 81 Mg Tablet.dr 81 Mg PO TUSA Multi-Vitamin Daily (Multivitamin) 1 Each Tablet 1 Tab PO DAILY Pramipexole Dihydrochloride (Pramipexole Di-HCl) 0.25 Mg Tablet 0.25 Mg PO DAILY Assessment/Pt Instructions Take medications as prescribed. Complete her course of antibiotics even if her feeling better. Follow up with her primary care physician. Reschedule your follow-up with your surgeon. Discharge Planning: <30 minutes discharge planning Discharge Instructions Discharge Diet: No Restrictions Activity as Tolerated: Yes Discharge Physical Examination Vital Signs Vital Signs Date Time Temp Pulse Resp B/P (MAP) Pulse Ox O2 Delivery O2 Flow Rate FiO2 05/13/19 08:00 Room Air 05/13/19 08:00 36.6 74 18 135/75 (95) 93 General Appearance: No Apparent Distress, WD/WN Respiratory: Lungs Clear, Normal Breath Sounds, No Respiratory Distress Cardiovascular: Regular Rate, Rhythm, No Edema, No Murmur Gastrointestinal: Normal Bowel Sounds, Non Tender, Soft Extremity: Normal Inspection, Non Tender, No Pedal Edema Skin: Normal Color, Warm/Dry Neurologic/Psychiatric: Alert, Oriented x3 Allergies: Coded Allergies: NKANo Known Allergies (Verified Allergy, Mild, 11/24/11) Uncoded Allergies: BEE STINGS (Allergy, Severe, SOA/HIVES, 11/01/10) Copy Copies To 1: MIN BOYCE MD Discharge Summary Date of Admission May 13, 2019 at 08:10 Date of Discharge Discharge Date: May 13, 2019 Discharge Time: 12:25 Admission Diagnosis UTI with ureteral stent Discharge Diagnosis Urinary tract infection (1) Urinary tract infection Status: Acute Qualifiers: Qualified Codes: N39.0 - Urinary tract infection, site not specified (2) Renal insufficiency Status: Acute (3) Delirium Status: Resolved (4) CAD (coronary artery disease) Status: Chronic (5) Hypothyroidism Status: Chronic Clinical Quality Measures DVT/VTE Risk/Contraindication: Risk Factor Score Per Nursin RFS Level Per Nursing on Admit: 3=High JAMILA DIAZ MD May 13, 2019 12:25
[2019-05-13 13:10] VITALS: BP 135/75
--- NOTE | 2019-05-13 13:17 | NUR ---
YORDAN HAMILTON JR demonstrates understanding of discharge instructions and accurately returns instructions upon questioning. Copy of Post-Discharge Instructions and Medication Discharge Instructions given to pt/ . YORDAN HAMILTON JR is able to manage continuing needs after discharge. Patients belongings returned to pt/. Skin dry and intact; no breakdown noted. Patient discharged from [facility] on 05/13/19 at 1310. YORDAN HAMILTON JR left floor via , accompanied by AND STAFF.
--- NOTE | 2019-05-15 07:01 | Physician Query Clarification ---
PQ-Link Infection to Dev/Proc Admission/Discharge Admission Date: May 13, 2019 at 08:10 Discharge Date: May 13, 2019 at 13:10 The medical record reflects the following clinical scenario: History/Risk Factors: Confusion, Bumping of head Clinical Findings: UTI with Ureteral stent and Urostomy Treatment: IV zosyn Question: Can you specify if the [UTI] is due to/associated with [Ureteral stent and Urostomy]? Please document a response in Progress Note or Discharge Summary. 1. Yes - UTI is due to/associated with Ureteral stent and Urostomy. 2. No - UTI is not due to/associated with Ureteral stent and Urostomy. 3. Other, with explanation of the clinical findings. 4. Clinically undetermined, no explanation for the clinical findings. PHYSICIAN RESPONSE Specify if infection: 1 Please remember a lack of response to the above will prompt a phone page by CDI/Coding staff. In responding to this query, please exercise your independent professional judgment. The purpose of this communication is to more accurately reflect the complexity of your patients condition. The fact that a question is asked does not imply that any particular answer is desired or expected. Thank you for your timely response to this clarification. Requestors name: [Nancy ] Phone # [[phone] ] THIS PHYSICIAN QUERY FORM IS A PERMANENT PART OF THE MEDICAL RECORD THERESA SALCEDO May 15, 2019 07:01 JAMILA DIAZ MD May 15, 2019 16:32
--- OUTSIDE RECORDS SUMMARY | 2019-05-20 17:00 | XMS REPORT | Clinical Summary ---
Author Author [facility] Organization [facility] Address Unknown Phone Unavailable Care Team Providers Care Human Resources Coordinator Name Role Phone Tasia Amaro MD Unavailable [phone] Min Lindsey MD PCP Karen Aguirre RN Unavailable Unavailable Alfredo Everett MD Unavailable Jazmine Germain RN Unavailable Unavailable Kit Tian MD Unavailable Dinorah Khan RN Unavailable Unavailable Source Comments Some departments are not documenting in the electronic medical record. If you d o not see the information that you expected, contact Release of Information in [facility] Information Management department at [phone] for further assistan ce in locating additional records.[facility] Allergies Comments Active Allergy Reactions Severity Noted Date Bee Venom Protein (Honey ANAPHYLAXIS High 10/19 Bee) Medications End Date Status Medication Sig Dispensed Refills Start Date Active gemfibrozil (LOPID) 600 Take 600 mg 0 mg tablet by mouth daily. Active levothyroxine (SYNTHROID) Take 50 mcg 0 50 mcg tablet by mouth daily. Active docusate (COLACE) 100 mg Take 300 mg 0 capsule by mouth daily. Takes one AM, two at HS Active pramipexole (MIRAPEX) Take 0.25 mg 0 0.25 mg tablet by mouth twice daily. 1 tablet in [...] mg by 0 mg tabletIndications: Leg mouth every cramps morning. Indications: Leg cramps Active aspirin EC 81 mg tablet Take 1 Tab by 90 Tab 3 mouth twice 6 weekly. Monday and Monday Wait 5 days before resuming your aspirin Active magnesium oxide (MAG-OX) Take 400 mg 0 400 mg tabletIndications: by mouth at Leg Cramps bedtime daily. Indications: Leg Cramps Active rosuvastatin (CRESTOR) 20 Take 20 mg by 0 mg tablet mouth at bedtime daily. Active omeprazole DR(+) Take 40 mg by 0 (PRILOSEC) 40 mg capsule mouth daily. Active ondansetron (ZOFRAN) 4 mg Take 4 mg by 0 tablet mouth every 8 hours as needed for Nausea or Vomiting. not taking Active acetaminophen (TYLENOL) Take 2 Tabs 0 325 mg tablet by mouth 7 every 6 hours as needed. Active Ostomy Supplies [facility] Use 10 Units 10 Each 99 07/26 as directed 7 as Needed (Every 4 days and as needed). Ostomy supplies and accessories. One month supply. Active meclizine (ANTIVERT) 12.5 Take 12.5 mg 0 mg tablet by mouth three times daily as needed. not taking Active albuterol (PROAIR HFA, Inhale 2 0 VENTOLIN HFA, OR puffs by PROVENTIL HFA) 90 mouth into mcg/actuation inhaler the lungs twice daily. Shake well before use. Active budesonide/formoterol Inhale 2 0 (SYMBICORT HFA) 80-4.5 puffs by mcg/actuation inhalation mouth into the lungs twice daily. Active temazepam (RESTORIL) 30 Take 30 mg by 0 mg capsule mouth at bedtime daily. Active traMADol (ULTRAM) 50 mg Take one 5 tablet 0 tabletIndications: pain tablet by 0 mouth every 6 hours as needed for Pain. Indications: pain Active menthol (BIOFREEZE Apply 0 (MENTHOL)) 4 % gel topically to affected area. Apply to shoulder as needed Active lisinopril (ZESTRIL) 5 mg Take one-half 90 tablet 0 tablet tablet by 0 mouth at bedtime daily. Hold until follow up with PCP Active ondansetron (ZOFRAN ODT) Dissolve one 30 tablet 0 4 mg rapid dissolve tablet by 0 tablet mouth every 6 hours as needed for Nausea or Vomiting. Place on tongue to disolve. 04/25/2019 Discontinued (Removed from P TA Med List) milk of magnesia (CONC) Take 10 mL by 360 mL 1 2,400 mg/10 mL oral mouth twice 7 suspensionIndications: daily as constipation needed. Indications: CONSTIPATION 04/30/2019 Discontinued (Reorder) lisinopril (ZESTRIL) 5 mg Take 2.5 mg 0 tablet by mouth at bedtime daily. 04/30/2019 Discontinued meloxicam (MOBIC) 15 mg Take 15 mg by 0 tablet mouth daily. 05/11/2019 cephalexin (KEFLEX) 250 Take one 22 capsule 0 mg capsule capsule by 0 mouth every 12 hours for 11 days. 05/15/2019 ciprofloxacin (CIPRO) 250 Take one 3 tablet 0 mg tablet tablet by 0 mouth daily for 3 days. Begin taking the day prior to stent removal. 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 No enlargement with cough or Valsalva. 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 Sr - cystoscopy - "red areas" Bothered by irritative voiding symptoms - no lasting benefit from Vesicare. -- 08/10/16 OPERATIVE PROCEDURE: Radical cystectomy with ileal conduit formation, Left inguinal hernia reducti on. pTis N0, -- 09/02/16 stents removed, Cr 1.46, hgb 13.1, prealbumin 32 L ast Assessment & Plan: 82-year-old white male with a history o f recurrent CIS of the bladder status post radical cystectomy and ilea l conduit in July in 2016 for a pTis N0 MX urothelial cell carcinoma with an incidentally detected Selina 3+4 T3a prostate cancer. 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) 04/18/2019 Prep for Case Oncology Kelsi Saldana MD Nieman, Nikkileticia, SRNA 04/11/2019 Anesthesia Event Tasia Amaro MD CYSTOURETHROSCOPY WITH URETEROSCOPY AND PYELOSCOPY - WITH BIOPSY 04/11/2019 Surgery Tasia Amaro MD Gross hematuria 04/11/2019 Hospital Encounter Tasia Amaro MD Gross hematuria (Primary Dx) 04/08/2019 Prep for Case Oncology Tasia Amaro MD Malignant neoplasm of overlapping sites of bladder (HCC) (Primary Dx) 04/05/2019 Office Visit Urology Tasia Amaro MD 04/05/2019 Hospital Radiology Encounter Tasia Amaro MD 04/05/2019 Hospital Lab Encounter from Last 3 Months Immunizations Name Administration Dates Next Due Flu Vaccine =>3 YO 01/08/2015 (Historical) Pneumococcal Vaccine 02/08/2015 (23-Delfina Adult) Family History Medical History Relation Name Comments Arthritis-osteo Father Diabetes Father Arthritis-osteo Mother Thyroid Disease Mother Asthma Sister Relation Name Status Comments Father Mother Sister Social History Date Tobacco Use Types Packs/Day Years Used Quit: 03/27/1974 Former Smoker Cigarettes, 1.5 20 Cigars Smokeless Tobacco: Never Used Drinks/Week oz/Week Comments Alcohol Use No Sex Assigned at Date Recorded Not on file Industry Job Start Date Occupation Not on file Not on file Not on file Travel End Travel History Travel Start No recent travel history available. Last Filed Vital Signs Reading Time Taken Comments Vital Sign 194/54 04/30/2019 7:43 AM [facility] Blood Pressure 77 04/30/2019 7:43 AM [facility] Pulse 36.4 C (97.5 F) 04/30/2019 7:43 AM [facility] Temperature - - Respiratory Rate 96% 04/30/2019 7:43 AM [facility] Oxygen Saturation - - Inhaled Oxygen Concentration 87.9 kg (193 lb 12.8 oz) 04/24/2019 10:41 AM [facility] Weight 165.1 cm (5' 5") 04/24/2019 10:41 AM [facility] Height 32.25 04/24/2019 10:41 AM [facility] Body Mass Index Plan of Treatment Health Maintenance Due Date Last Done Comments MEDICARE ANNUAL WELLNESS 1935 VISIT DTAP/TDAP VACCINES (1 - 1945 Tdap) PHYSICAL (COMPREHENSIVE) 1952 EXAM SHINGLES RECOMBINANT 1984 VACCINE (1 of 2) PNEUMONIA (PCV13/PPSV23) 02/09/2016 02/08/2015 VACCINES (2 of 2 - PCV13) INFLUENZA VACCINE 10/25/2018 01/08/2015, 005, 01/01/2004, Additional history exists Goals Goal Patient Associated Recent Progress Patient-Stat Aut hor Goal Type Problems ed? 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 02/01/2022 [id number] / [id number] / [id number] Set Stent 75cm 7fr .038in 5mm COOK Pigtail Curve Ureteral - [id number] MEDICAL Implanted: Qty: 1 on 04/24/2019 by INC Tasia Amaro MD at [facility] 08/24/2021 [id number] / [id number] / [id number] Barrier Adhesion 3x5in Procedure SANOFI-AVE Pack Bioresorbable Membrane - NTIS [id number] Implanted: Qty: 1 on 04/24/2019 by Tasia Amaro MD at [facility] Procedures Comments Procedure Name Priority Date/Time Associated Diag nosis HC CBC,AUTOMATED Routine 04/30/2019 3:40 AM [facility] HC BASIC METABOLIC PANEL Routine 04/30/2019 3:40 AM [facility] CONSULT IV THERAPY TEAM Routine 04/28/2019 10:01 PM [facility] ABDOMEN AP ONLY SHAHIDA 04/28/2019 12:21 PM [facility] ABDOMEN AP ONLY Routine 04/28/2019 10:09 AM [facility] HC CBC,AUTOMATED Routine 04/28/2019 4:21 AM [facility] HC BASIC METABOLIC PANEL Routine 04/28/2019 4:21 AM [facility] HC HEPATITIS C REINA Add on 04/27/2019 12:35 PM [facility] HC HEPATITIS B-S ANTIGEN Add on 04/27/2019 12:35 PM [facility] BASIC METABOLIC PANEL STAT 04/27/2019 11:40 AM [facility] HC HIVI&2 SINGLE ASSAY Add on 04/27/2019 4:58 AM [facility] HC BASIC METABOLIC PANEL Routine 04/27/2019 4:58 AM [facility] HC CBC,AUTOMATED Routine 04/27/2019 4:58 AM [facility] ABDOMEN AP ONLY SHAHIDA 04/26/2019 7:37 AM [facility] HC BASIC METABOLIC PANEL Routine 04/26/2019 5:33 AM [facility] HC CBC,AUTOMATED Routine 04/26/2019 5:33 AM [facility] HC BASIC METABOLIC PANEL Routine 04/25/2019 4:27 AM [facility] HC CBC,AUTOMATED Routine 04/25/2019 4:27 AM [facility] HC POTASSIUM, BG STAT 04/24/2019 1:00 PM [facility] HC SODIUM,BG STAT 04/24/2019 1:00 PM [facility] HC GLUCOSE,BG STAT 04/24/2019 1:00 PM [facility] HC BLOOD STAT 04/24/2019 GASES;(CALCULATED 02) 1:00 PM [facility] HC HEMOGLOBIN (BG) STAT 04/24/2019 1:00 PM [facility] HC FROZEN SECTION #1 Routine 04/24/2019 Malignant neoplasm of 12:59 PM [facility] left ureter (HCC) ANESTHESIA ARTERIAL LINE Routine 04/24/2019 INSERTION 12:44 PM [facility] URETEROPLASTY 04/24/2019 Malignant neoplasm of 12:19 PM [facility] left ureter (HCC) ANESTHESIA PERIPHERAL Routine 04/24/2019 NERVE BLOCK 12:11 PM [facility] HC ABO GROUP STAT 04/24/2019 10:59 AM [facility] HC CBC,AUTOMATED STAT 04/24/2019 10:59 AM [facility] TELEMETRY STRIPS-SCAN 04/24/2019 12:00 AM [facility] FLUORO MOBILE IN OR STAT 04/11/2019 4:59 PM [facility] HC LVL IV SRG PTH, GROSS Routine 04/11/2019 Gross hematuria & MICRO 4:47 PM [facility] CYSTOURETHROSCOPY WITH 04/11/2019 Gross hematuri a URETEROSCOPY AND/ OR 4:13 PM [facility] PYELOSCOPY - WITH BIOPSY AND/ OR FULGURATION URETERAL/ RENAL PELVIC LESION POC GLUCOSE 04/11/2019 3:35 PM [facility] TELEMETRY STRIPS-SCAN 04/11/2019 12:[address] [address] ABD/PELV W CONTRAST Routine 04/05/2019 Maligna nt neoplasm of 12:10 PM [facility] urinary bladder, unspecified site (HCC) Prostate cancer (HCC) POC CREATININE, RAD 04/05/2019 11:24 AM [facility] NOTES 04/05/2019 10:15 AM [facility] HC BASIC METABOLIC PANEL Routine 04/05/2019 Malig nant neoplasm of 10:15 AM [facility] urinary bladder, unspecified site (HCC) Prostate cancer (HCC) HC PROSTATIC SPECIF Routine 04/05/2019 Prostate c ancer (HCC) AG(PSA);TOT 10:15 AM [facility] from Last 3 Months Results * CBC (04/30/2019 3:40 AM [facility]) Only the most recent of 6 results within the time period is included. White Blood 3.5 (L) 4.5 - 11.0 K/UL [facility] Cells RBC 3.38 (L) 4.4 - 5.5 M/UL [facility] Hemoglobin 10.5 (L) 13.5 - 16.5 GM/DL [facility] Hematocrit 30.8 (L) 40 - 50 % [facility] MCV 91.2 80 - 100 FL [facility] MCH 31.2 26 - 34 PG [facility] MCHC 34.2 32.0 - 36.0 G/DL [facility] RDW 17.0 (H) 11 - 15 % [facility] Platelet Count 223 150 - 400 K/UL [facility] MPV 7.5 7 - 11 FL [facility] Specimen Blood Performing Organization Address [facility] one Number [facility] [address] [place] [address] * BASIC METABOLIC PANEL (04/30/2019 3:40 AM [facility]) Only the most recent of 7 results within the time period is included. Sodium 141 137 - 147 MMOL/L [facility] Potassium 4.4 3.5 - 5.1 MMOL/L [facility] Chloride 113 (H) 98 - 110 MMOL/L [facility] CO2 17 (L) 21 - 30 MMOL/L [facility] Anion Gap 11 3 - 12 [facility] Glucose 100 70 - 100 MG/DL [facility] Blood Urea 44 (H) 7 - 25 MG/DL [facility] Nitrogen Creatinine 2.01 (H) 0.4 - 1.24 MG/DL [facility] Calcium 7.9 (L) 8.5 - 10.6 MG/DL [facility] eGFR Non 32 (L) >60 mL/min [facility] Comment: [place] The eGFR is not validated f or use in drug dosing adjustments. Continue to use estimated creatinine clearance per dosing reference text. Please contact the Clinical Pharmacist for questions. eGFR 38 (L) >60 mL/min [facility] [place] Comment: The eGFR is not validated for use in drug dosing adjustments. Continue to use estimated creatinine clearance per dosing reference text. Please contact the Clinical Pharmacist for questions. Specimen Blood Performing Organization Address City/[facility] Ph one Number [facility] [address] [place] [address] * ABDOMEN AP ONLY (04/28/2019 12:21 PM [facility]) Only the most recent of 3 results within the time period is included. Specimen Impressions Performed At Satisfactory placement of gastric tube. [facility] RAD RESUL TS Persistent dilatation of small bowel lo ops. Finalized by Mann Lopez M.D. on 04/29 7:23 AM. Dictated by Mann Lopez M.D. on 04/29/2019 7:02 AM. Narrative Performed At Procedure: ABDOMEN AP ONLY [facility] RAD RESULTS Clinical Indication: Nasogastric tube p lacement. Comparison: Current day. FINDINGS: Placement of nasogastric tube, sidehole extends beyond the gastroesophageal junction, tip overlying gastric fundus. Dilated bowel loops. Pneumoperitoneum, likely on a postoperative basis. Right ureteral stent. Procedure Note Interface, Radiant Results - 04/29/2019 7:26 AM [facility] Procedure: ABDOMEN AP ONLY Clinical Indication: Nasogastric tube placement. Comparison: Current day. FINDINGS: Placement of nasogastric tube, sidehole extends beyond the gastroesophageal junction, tip overlying gastric fundus. Dilated bowel loops. Pneumoperitoneum, likely on a postoperative basis. Right ureteral stent. IMPRESSION Satisfactory placement of gastric tube. Persistent dilatation of small bowel loops. Finalized by Mann Lopez M.D. on 04/29/2019 7:23 AM. Dictated by Mann Lopez M.D. on 04/29/2019 7:02 AM. Performing Organization Address [facility] Ph one Number [facility] RAD RESULTS * HEPATITIS C AB (04/27/2019 12:35 PM [facility]) Anti HCV NEG NEG-NEG MAIN LAB Specimen Performing Organization Address [facility] one Number MAIN LAB [address] [place] [address] * HEPATITIS B SURFACE AG (04/27/2019 12:35 PM [facility]) HBsAg NEG NEG-NEG MAIN LAB Specimen Performing Organization Address [facility] one Number MAIN LAB [address] [place] [address] * HIV, STAT (04/27/2019 4:58 AM [facility]) HIV I/II, Rapid TEST ORDERED UNDER WRONG [facility] MAIN [facility] ENCOUNTER, TO BE REORDERED CORRECTLY AND MODIFIED/KS/1357 Corrected on 04/29 AT 1358: previously reported as NEG Specimen Performing Organization Address [facility] Ph one Number MAIN LAB [address] [place] [address] * GLUCOSE,BG (04/24/2019 1:00 PM [facility]) Glucose 108 (H) 70 - 100 MG/DL [facility] Specimen Blood Performing Organization Address [facility] one Number MAIN LAB [address] [place] [address] * SODIUM,BG (04/24/2019 1:00 PM [facility]) Sodium 137 137 - 147 MMOL/L MAIN LAB Specimen Blood Performing Organization Address [facility] one Number MAIN LAB [address] [place] [address] * POTASSIUM, BG (04/24/2019 1:00 PM [facility]) Potassium 4.0 3.5 - 5.1 MMOL/L MAIN LAB Specimen Blood Performing Organization Address [facility] one Number MAIN LAB [address] [place] [address] * HEMOGLOBIN & HEMATOCRIT, BG (04/24/2019 1:00 PM [facility]) Hemoglobin BG 13.0 (L) 13.5 - 16.5 GM/DL MAIN LAB Hematocrit BG 39.9 (L) 40 - 50 % MAIN LAB Specimen Blood Performing Organization Address [facility] one Number MAIN LAB [address] [place] [address] * BLOOD GASES, ARTERIAL (04/24/2019 1:00 PM [facility]) pH-Arterial 7.39 7.35 - 7.45 MAIN LAB pCO2-Arterial 41 35 - 45 MMHG MAIN LAB pO2-Arterial 351 (H) 80 - 100 MMHG MAIN LAB Base 0.3 MMOL/L MAIN LAB Deficit-Arteria l O2 Sat-Arterial 99.9 (H) 95 - 99 % MAIN LAB Bicarbonate-ART 24.2 21 - 28 MMOL/L MAIN LAB -Viviane Specimen Blood, arterial - Blood Performing Organization Address [facility] Ph one Number MAIN LAB [address] [place] [address] * SURGICAL PATHOLOGY (04/24/2019 12:59 PM [facility]) Only the most recent of 2 results within the time period is included. PATHOLOGY [facility] [email or web address] Department of Pathology and Laboratory Medicine [address] [place] [id number] Surgical Pathology Office: [phone] SURGICAL PATHOLOGY REPORT NAME: LEONID HAMILTON SURG PATH #: [id number] MR #: [id number] SPECIMEN CLASS: SR BILLING #: [id number] ALT ID #: LOCATION: [facility] DATE OF PROCEDURE: 04/24/2019 AGE: 83 SEX: M DATE RECEIVED: 04/24/2019 : 1935 TIME RECEIVED: 13:22 PHYSICIAN: TASIA AMARO MD DATE OF REPORT: 04/29/2019 COPY TO: DATE OF PRINTIN04/29/2019 ############################## ############################## ############ Final Diagnosis: A. Ureter, "left distal ureter", biopsy: Urothelial carcinoma in situ. B. Left distal ureter #2", biopsy: Urothelial carcinoma in situ. C. Left distal ureter #3", biopsy: Urothelial carcinoma in situ. D. Left distal ureter", excision: Urothelial dysplasia. Intestinal metaplasia. E. Right distal ureter", excision: Negative for invasive and in situ carcinoma. F. Left distal ureter #2", excision: Urothelial dysplasia. G. Left distal ureter #3", excision: Urothelial dysplasia. H. Left distal ureter #4", biopsy: Urothelial dysplasia. I. Left distal ureter #4 routine", excision: Urothelial dysplasia. J. Kidney and ureter, "left kidney and ureter", nephroureterectomy: Urothelial carcinoma in situ. See checklist. Comment: RENAL PELVIS: Resection/Nephroureterectomy, Partial orComplete CAP Version: UreterRenalPelvis 2.0.1.0 Procedure Nephroureterectomy, complete Specimen Laterality Left Tumor Site Ureter Tumor Size Greatest dimension: Approximately 14.3 cm Tumor Type Urothelial carcinoma in situ Histologic Type Urothelial carcinoma in situ Associated Epithelial Lesions (select all that apply) None identified Histologic Grade (select all that apply) Not applicable Tumor Extension Carcinoma in situ Tumor Configuration (select all that apply) Flat Margins (select all that apply) Uninvolved by urothelial carcinoma in situ, carcinoma in situ present at the distal ureteral margin, however, this is not the final margin. Lymph-Vascular Invasion Not identified Pathologic Staging (pTNM): pTis NX Mn/a Primary Tumor (pT) pTis: Flat carcinoma in situ Regional Lymph Nodes (pN) pNX: Cannot be assessed No nodes submitted or found Distant Metastasis (pM) Not applicable Additional Pathologic Findings (select all that apply) Intestinal metaplasia Pathologic Findings in Ipsilateral Nonneoplastic Renal Tissue (select all that apply) Significant pathologic alterations None identified Pursuant to the Associate Professor Of Theatre Program at the [facility] Pathology Department, selected slides from this case have been concurrently reviewed by the following pathologist: Dr. Asuncion Brooks who agrees with the final diagnosis. The pathologic stage assigned here should be regarded as provisional, as it reflects only current pathologic data and does not incorporate full knowledge of the patient's clinical status and/or prior pathology. Attestation: By this signature, I attest that I have personally formulated the final interpretation expressed in this report and that the above diagnosis is based upon my examination of the slides and/or other material indicated in this report. +++ +++ Niko Polanco D.O. bm/04/25/2019 ############################## ############################## ############ Material Received: A: left distal ureter B: left distal ureter #2 C: left distal ureter #3 D: left distal ureter E: right distal ureter F: left distal ureter #2 G: left distal ureter #3 H: left distal ureter #4 I: left distal ureter #4 routine J: left kidney and ureter History: 83-year-old male with the clinical history of a malignant neoplasm of left ureter. Gross Description: A. Received fresh, labeled with the patient's name and "left distal ureter" is a tubular segment of valenzuela-pink ureter measuring 0.4 cm in length and 0.6 cm in diameter. The specimen is submitted entirely in cassette [id number] for frozen and permanent sectioning. (sc) B. Received fresh, labeled with the patient's name and "left distal ureter #2" is a 0.6 x 0.6 x 0.4 cm tubular segment of valenzuela-pink ureter. The specimen is submitted entirely for frozen section diagnosis with the remnant being placed in cassette B1FS. (beh) C. Received fresh, labeled with the patient's name and "left distal ureter #3" is a 0.3 cm in length and 0.6 cm in diameter tubular segment of valenzuela-pink ureter. The specimen is submitted entirely for frozen section diagnosis with the remnant being placed in cassette C1FS. (beh) D. Received in formalin, labeled with the patient's name and "left distal ureter" is a 2.4 x 1.5 x 0.9 cm unoriented valenzuela-pink resection specimen consisting of a 1.8 cm in length by 0.5 cm in diameter tubular segment of ureter and additional attached soft tissues. The specimen is inked black, serially sectioned, and submitted entirely as follows: D1 Resection margins. D2 Remainder of specimen. (beh) E. Received in formalin, labeled with the patient's name and "right distal ureter" is a 3.7 x 1.3 x 0.7 cm unoriented resection specimen consisting of a 3.7 cm in length by 0.5 cm in diameter segment of ureter with attached soft tissues. The specimen is inked black, serially sectioned, and submitted entirely as follows: E1 Resection margins. E2-E3 Remainder of specimen. (beh) F. Received in formalin, labeled with the patient's name and "left distal ureter" is a 1.5 x 1.0 x 0.9 cm portion of ureter with attached soft tissues. The specimen is inked black, serially sectioned along the length ureter, and submitted entirely as follows: F1 Ureter with surrounding tissues. F2 Surrounding adipose tissue. (beh) G. Received in formalin, labeled with the patient's name and "left distal ureter #3" is a 2.5 x 1.5 x 1.1 cm resection specimen consisting of a 2.3 cm in length by 0.5 cm in diameter segment of ureter with attached surrounding soft tissues. Specimen is inked black, serially sectioned and submitted entirely as follows: G1 Resection margins. G2 Remainder of specimen. (beh) H. Received fresh, labeled with the patient's name and "left distal ureter #4" is a 0.3 cm in length and 0.5 cm in diameter tubular segment of valenzuela-pink ureter. The specimen is submitted entirely for frozen section diagnosis with the remnant being placed in cassette H1FS. (beh) I. Received in formalin, labeled with the patient's name and "left distal ureter #4 routine" is a 3.1 cm in length by 0.9 cm in diameter segment of ureter. At one end there is a suture, however, no designation is provided. The end with a suture is inked blue and the remainder of the specimen is inked black. The specimen is serially sectioned from the suture end to the opposite end and entirely submitted in cassettes I1-I7. (matyk) J. Fixative: Formalin Labeled: "Left kidney and ureter" Weight: 1667 grams Specimen Received: Nephrectomy without adrenal gland Specimen Measurement: 30.4 x 18.9 x 10.5 cm Kidney Measurement: 13.6 x 7.9 x 7.6 cm Sectioning reveals three cortical cysts measuring 1.5 x 1.3 x 0.9 cm, 2.3 x 2.3 x 1.4 cm and 4.5 x 3.2 x 2.3 cm. The two larger cysts are remarkable for clear serous fluid and the smaller one is remarkable for hemorrhage. A discrete tumor is grossly not identified. The portion of ureter measures 6.2 cm in length by 0.5 cm in diameter. The distal end is inked blue and the remainder of the specimen is inked black. The ureter is serially sectioned from distal to proximal to reveal a 0.4 cm dilated lumen. A discrete lesion or tumor is grossly not identified. Renal vein involved by tumor: No Renal artery involved by tumor: No Ureter involved by tumor: No Renal Pelvis: Is not involved with tumor Renal sinus fat involved by tumor: No Uninvolved renal parenchyma: Demonstrates distinct cortical medullary junction Adrenal gland: No The Gerota's fascia deep to the tumor is inked black. Lymph nodes identified: No Tissue submitted to Biospecimen Repository Core Facility: No [employer] Agent [employer] sections of the specimen are submitted as follows: J1 [employer] section of hemorrhagic cortical cyst. J2 [employer] sections of smaller cortical cyst. J3-J4 [employer] sections of larger cortical cyst. J5 Entire ureteropelvic junction perpendicular sections. J6-J8 [employer] sections of renal sinus fat. J9-J11 Entire renal pelvis. J12 Unremarkable renal parenchyma. J13-J19 Entire ureter serially and sequentially from distal to proximal (I52-[id number] resection margin). J20 Vascular resection margins. J21 [employer] hilar adipose tissue. (dlk) ct/04/24/2019 Intraoperative Consultation: A1FS, ureter, "left distal ureter", biopsy: Marked atypia, bordering on CIS. B1FS, ureter, "left distal ureter #2", biopsy: Marked atypia, bordering on CIS. C1FS, ureter, "left distal ureter #3", biopsy: Patchy marked atypia. H1FS, ureter, "left distal ureter #4", biopsy: Patchy marked atypia. Debbie Srivastava MD Specimen Tissue - Ureter,Left Tissue - Ureter,Left Tissue - Ureter,Right Tissue - Ureter,Left Tissue - Ureter,Left Tissue - Ureter,Left Tissue - Ureter,Left Tissue - Ureter,Left Tissue - Ureter,Left Tissue - Kidney, Left Performing Organization Address City/State/Zipcode Ph one Number MAIN LAB [address] [place] [address] * A-LINE INSERTION (04/24/2019 12:44 PM INVESTIGATOR INTERNAL AFFAIRS) Narrative Performed At Haris Norman MD 04/24/2019 12:44 PM Anesthesia Procedure: Arterial Line Leah cement A-LINE INSERTION Date/Time: 04/24/2019 12:44 PM Patient location: OR Indications: frequent labs and hemodyna magnus monitoring Preprocedure checklist performed: 2 pat ient identifiers, risks & benefits discussed, patient evaluated, timeout p erformed, consent obtained, patient being monitored and sterile drape Sterile technique: - Proper hand washing - Cap, mask - Sterile gloves - Skin prep for antisepsis Arterial Line Procedure Patient sedated: yes (see MAR) Sedation type: general; Artery prepped with alcohol swabs; skin prep agent completely dried prior to procedure. Location: radial artery Laterality: right Technique: palpation Needle gauge: 20 G Number of attempts: 1 Procedure Outcome Catheter secured with adhesive dressing applied Events: no complications noted during i nsertion and skin intact, warm, and dry Observation: pt tolerated well Performed by: Haris Norman MD Authorized by: Haris Norman MD * PERIPHERAL NERVE BLOCK (04/24/2019 12:11 PM INVESTIGATOR INTERNAL AFFAIRS) Narrative Performed At Kareem Kurtz MD 04/25/2019 6 :58 AM Anesthesia Procedure: Peripheral Nerve Block PERIPHERAL NERVE BLOCK Date/Time: 04/24/2019 12:05 PM Patient location: pre-op Reason for block: at surgeon's request and post-op pain management Preprocedure checklist performed: 2 pat ient identifiers, risks & benefits discussed, patient evaluated, timeout p erformed, consent obtained, patient being monitored and sterile drape Sterile technique: - Proper hand washing - Cap, mask - Sterile gloves - Skin prep for antisepsis Peripheral Nerve Block Procedure Patient position: supine Prep: ChloraPrep Monitoring: BP, EKG and continuous puls e ox Block type: TAPs Laterality: bilateral Injection technique: single-shot Procedures: ultrasound guided Ultrasound image captured Needle/cathether: Needle type: Stimuplex Needle gauge: 22 G; Needle length: 4 in Needle location: anatomical landmark s and ultrasound guidance Procedure Medications Sedation: fentaNYL citrate PF (SUBLIMAZ E) injection, 50 mcg Local Anesthesia: lidocaine PF 1% (10 m g/mL) injection, 2 mL Bolus Dose: bupivacaine (MARCAINE) 0.5 % injection, 40 mL Adjuvant Medications: dexamethasone (DE CADRON) injection, 4 mg Procedure Outcome Injection assessment: negative aspirati on for heme, no paresthesia on injection, incremental injection and lo viviane visualized surrounding nerve on ultrasound Observations: adequate block, patient s edated but conversant throughout block, patient tolerated the procedure well with no immediate complications and comfortable throughou t block Refer to nursing documentation for justin ls and monitoring data during procedure. Performed by: Juan Jose Pizarro DO Authorized by: Kareem Kurtz MD * TYPE & CROSSMATCH (04/24/2019 10:59 AM INVESTIGATOR INTERNAL AFFAIRS) Units Ordered 4 MAIN LAB Crossmatch 04/27/2019 MAIN LAB Expires Record Check FOUND [facility] ABO/RH(D) O POS [facility] Antibody Screen NEG [facility] Electronic YES MAIN LAB Crossmatch Unit Number [id number] [facility] Blood Component RBC,ADSOL,LEUKO REDUCED,1ST [facility] AB Type CONT. Unit Division 0 [facility] Status OF Unit REL FROM ALLOC [facility] Transfusion OK TO TRANSFUSE [facility] Status Crossmatch COMPATIBLE,ELECTRONIC [facility] Result Unit Number [id number] [facility] Blood Component RBC,ADSOL,LEUKO REDUCED [facility] Type Unit Division 0 [facility] Status OF Unit REL FROM ALLOC [facility] Transfusion OK TO TRANSFUSE [facility] Status Crossmatch COMPATIBLE,ELECTRONIC [facility] Result Specimen Blood Performing Organization Address City/[facility] Ph one Number [facility] [address] [place] [address] * TELEMETRY STRIPS-SCAN (04/24/2019 12:00 AM INVESTIGATOR INTERNAL AFFAIRS) Narrative Performed At This result has an attachment that is n ot available. Ordered by an unspecified provider. * FLUORO MOBILE IN OR (04/11/2019 4:59 PM INVESTIGATOR INTERNAL AFFAIRS) Specimen Narrative Performed At This order has been auto finalized and does not conta in a result. [facility] RAD Performing Organization Address [facility] Ph one Number MARIAN[facility] RAD * POC GLUCOSE (04/11/2019 3:35 PM INVESTIGATOR INTERNAL AFFAIRS) Glucose, POC 93 70 - 100 MG/DL [facility] Specimen Performing Organization Address [facility] one Number MAIN LAB [address] [place] [address] * TELEMETRY STRIPS-SCAN (04/11/2019 12:00 AM INVESTIGATOR INTERNAL AFFAIRS) Narrative Performed At This result has an attachment that is n ot available. Ordered by an unspecified provider. * CT ABD/PELV W CONTRAST (04/05/2019 12:10 PM INVESTIGATOR INTERNAL AFFAIRS) Specimen Impressions Performed At 1. Prior cystoprostatectomy with right lower quadrant urinary diversion. Mild [facility] RESULTS soft tissue thickening of the distal le ft ureter, which is nonspecific and may be inflammatory. However, tumor remains on the differential. 2. No abdominal or pelvic lymphadenopat hy. By my electronic signature, I attest th at I have personally reviewed the images for this examination and formulated the interpretations and opinions expressed in this report Finalized by Josh Loza on 04/05/2019 3:36 PM. Dictated by Ernesto Hennessy M.D. on 04/05/2019 1:51 PM. 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 Post processing coronal and sagittal reconstruction jay ges were made from the axial images. IV contrast: Omnipaque 350 Bowel contrast: None Comparison: CT abdomen/pelvis October 19, 2018 FINDINGS: Lower Thorax: Median sternotomy wires. Calcified coronary artery disease. Mild scarring and atelectasis in the lung ba ses. Liver and Biliary system: The liver is normal in size with a few unchanged subcentimeter hypodensities which remai n too small to characterize. Gallbladder is nondilated. Major portal veins are p atent. Spleen: Unremarkable. Adrenal Glands and Kidneys: The adrenal glands are unremarkable. Redemonstration of multiple left renal cysts. The right kidney is unremarkable. No hydronephrosis. There is symmetric cont rast excretion into both renal collecting systems. Pancreas and Retroperitoneum: The pancr eas is unremarkable. No retroperitoneal lymphadenopathy. Aorta and Major Vessels: The abdominal aorta and iliac arteries are normal in caliber with marked calcified atheroscl erotic plaque. Bowel, Mesentery and Peritoneal space: Prior ileocolonic resection and anastomosis. Large and small bowel is n ormal in caliber. Moderate distal colonic diverticulosis. No ascites or mesenteri c lymphadenopathy. Pelvis: Prior cystoprostatectomy and ri ght lower quadrant urinary diversion which is partially opacified by contras t. There is segmental soft tissue thickening involving the distal left ur eter, visualized on delayed phase images (for example series 7 image 58). Prior pelvic lymph node dissection with no recurrent lymphadenopathy. No pelvic as cites. Abdominal wall and Osseous Structures: Diffuse osteopenia. Healed left rib fractures. Multilevel lumbar spondylosi s. No aggressive osseous lesions. Procedure Note Interface, Radiant Results - 04/05/2019 3:[address] IN[address]ST[address]ATOR INTERNAL AFFAIRS CT ABDOMEN AND PELVIS Clinical Indication: Malignant neoplasm of the urinary bladder Technique: Multiple contiguous axial images were obtained through the abdomen and pelvis following the administration of IV contrast material. Post processing coronal and sagittal reconstruction images were made from the axial images. IV contrast: Omnipaque 350 Bowel contrast: None Comparison: CT abdomen/pelvis October 19, 2018 FINDINGS: Lower Thorax: Median sternotomy wires. Calcified coronary artery disease. Mild scarring and atelectasis in the lung bases. Liver and Biliary system: The liver is normal in size with a few unchanged subcentimeter hypodensities which remain too small to characterize. Gallbladder is nondilated. Major portal veins are patent. Spleen: Unremarkable. Adrenal Glands and Kidneys: The adrenal glands are unremarkable. Redemonstration of multiple left renal cysts. The right kidney is unremarkable. No hydronephrosis. There is symmetric contrast excretion into both renal collecting systems. Pancreas and Retroperitoneum: The pancreas is unremarkable. No retroperitoneal lymphadenopathy. Aorta and Major Vessels: The abdominal aorta and iliac arteries are normal in caliber with marked calcified atherosclerotic plaque. Bowel, Mesentery and Peritoneal space: Prior ileocolonic resection and anastomosis. Large and small bowel is normal in caliber. Moderate distal colonic diverticulosis. No ascites or mesenteric lymphadenopathy. Pelvis: Prior cystoprostatectomy and right lower quadrant urinary diversion which is partially opacified by contrast. There is segmental soft tissue thickening involving the distal left ureter, visualized on delayed phase images (for example series 7 image 58). Prior pelvic lymph node dissection with no recurrent lymphadenopathy. No pelvic ascites. Abdominal wall and Osseous Structures: Diffuse osteopenia. Healed left rib fractures. Multilevel lumbar spondylosis. No aggressive osseous lesions. IMPRESSION 1. Prior cystoprostatectomy with right l ower quadrant urinary diversion. Mild soft tissue thickening of the distal left ureter, which is nonspecific and may be inflammatory. However, tumor remains on the differential. 2. No abdominal or pelvic lymphadenopath y. By my electronic signature, I attest that I have personally reviewed the images for this examination and formulated the interpretations and opinions expressed in this report Finalized by Columba Cordon M.D. on 04/05/2019 3:36 PM. Dictated by Ernesto Hennessy M.D. on 04/05/2019 1:51 PM. Performing Organization Address City/[facility] Ph one Number [facility] RAD RESULTS * POC CREATININE, RAD (04/05/2019 11:24 AM INVESTIGATOR INTERNAL AFFAIRS) Creatinine, POC 1.3 (H) 0.4 - 1.24 MG/DL [facility]IN [facility] Specimen Performing Organization Address [facility] Ph one Number MAIN LAB [address] [place] [address] * NOTES (04/05/2019 10:15 AM INVESTIGATOR INTERNAL AFFAIRS) Specimen Notes PER PT TEST EARLY REFERENCE LAB Specimen Performing Organization Address City/State/[facility] Ph one Number REFERENCE LAB REFERENCE LAB See results for address. * PROSTATIC SPECIFIC ANTIGEN-PSA (04/05/2019 10:15 AM INVESTIGATOR INTERNAL AFFAIRS) Prostatic 0.01 <6.01 NG/ML [facility] MAIN [facility] Specific Comment: Antigen REFERENCE RANGES AGE PSA VALUE <50 <=1.5 50-54 <=2.0 55-59 <=3.0 60-69 <=4.0 70+ <=6.0 Specimen Blood Performing Organization Address City/State/Zipcode Ph one Number [facility] MAIN [facility] [address] [place] [address] from Last 3 Months Insurance Type Payer Benefit Subscriber ID Effective Phone Address Plan / Dates Group Medicare MEDICARE MEDICARE xxxxxxxxxxx 1999-P PART A AND resent B PPO [facility] AAR xxxxxxxxxxx 2002-P resent -[phone] Advance Directives 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 08/17/2016 12:44 PM Full Code 08/10/2016 1:56 PM Provider has discussed Code Status Yes w/Patient or Family? 03/11/2015 1:35 PM Full Code 03/10/2015 3:38 PM Provider has discussed Code Status Yes w/Patient or Family?
--- OUTSIDE RECORDS SUMMARY | 2019-05-20 17:00 | XMS REPORT | Encounter Summary ---
Author Author [facility] Organization [facility] Address Unknown Phone Unavailable Care Team Providers Care Etcher Machine Name Role Phone Cory Amaro MD Unavailable [phone] Min Lindsey MD PCP Karen Aguirre RN Unavailable Unavailable Alfredo Everett MD Unavailable Jazmine Germain RN Unavailable Unavailable Kit Tian MD Unavailable Dinorah Khan RN Unavailable Unavailable Reason for Visit * Reason Comments Medical Question Encounter Details Care Team Description Date Type Department WhileAugustus cordero MD [address] [place] [address] Medical Question 05/11/2019 Telephone [facility] [address] [facility] [address] [place] [address] Social History Date Tobacco Use Types Packs/Day Years Used Quit: 03/27/1974 Former Smoker Cigarettes, 1.5 20 Cigars Smokeless Tobacco: Never Used Drinks/Week oz/Week Comments Alcohol Use No Sex Assigned at Date Recorded Not on file Industry Job Start Date Occupation Not on file Not on file Not on file Travel End Travel History Travel Start No recent travel history available. documented as of this encounter Functional Status Date of Assessment Functional Status Response 04/25/2019 Does the patient have a hearing impairment: Yes 08/17/2016 Does the patient have a visual impairment: No 08/17/2016 Does the patient have impaired ambulation: No 08/17/2016 Does the patient have an activity of daily living No (ADL) impairment: 08/17/2016 Does the patient have an instrumental activity of No daily living (IADL) impairment: Date of Assessment Cognitive Status Response 08/17/2016 Does the patient have a cognitive impairment: No documented as of this encounter Miscellaneous Notes * Telephone Encounter - Augustus Bhatti MD - 05/11/2019 9:35 PM CORRESPONDENCE CLERK Urology Phone Call Mr. Kennedy is an 83yo M with history of bladder cancer s/p RC/IC, recently s/p L nephroureterectomy with reimplantation of the right ureter on 04/24/[address] Amaro. The patient's called in [facility] with questions regarding fo llow up for staple/stent removal. She reports he was confused over the last week and she was worried he could have sepsis so went to local ER where he was diagn osed with UTI and admitted to the hospital to be started on antibiotics. He has been on Zosyn, started 05/10/19. Patient was supposed to come to clinic on 05/13 for stent pull, staple removal. H owever, he is still admitted to their local hospital and will be unable to make the drive up to . She requests stent and staple removal locally. She is a [employer] ICU nurse and feels very comfortable pulling the stent out for him and with [facility] doctor removal arsalan. > Cancel 05/13/19 appointment with Asuncion Olson. > Keep appt scheduled with Dr. Amaro on 06/07/19 > Arsalan to be removed by inpatient doctor > Stent removal plan: to pull stent after patient is transitioned to oral antibiotics for UTI. To be completed with 2-3 days of antibiotics remaining. If any issues removing stent, is reliable and will call. Augustus Bhatti MD PGY3 Urology Resident ESPONDENCE CLERK documented in this encounter Plan of Treatment Not on filedocumented as of this encounter Goals Goal Patient Associated Recent Progress Patient-Stat Aut hor Goal Type Problems ed? 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, piece hand Recover from illness Hospital Yes Patrick Angel, RN Note: "To heal and recover and get back to normal" documented as of this encounter Visit Diagnoses Not on filedocumented in this encounter
--- OUTSIDE RECORDS SUMMARY | 2019-05-20 17:00 | XMS REPORT | Encounter Summary ---
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 documented as of this encounter Last Filed Vital Signs Reading Time Taken Comments Vital Sign 194/54 04/30/2019 7:43 AM ORACLE DATABASE CONSULTANT Blood Pressure 77 04/30/2019 7:43 AM ORACLE DATABASE CONSULTANT Pulse 36.4 C (97.5 F) 04/30/2019 7:43 AM ORACLE DATABASE CONSULTANT Temperature - - Respiratory Rate 96% 04/30/2019 7:43 AM ORACLE DATABASE CONSULTANT Oxygen Saturation - - Inhaled Oxygen Concentration 87.9 kg (193 lb 12.8 oz) 04/24/2019 10:41 AM ORACLE DATABASE CONSULTANT Weight 165.1 cm (5' 5") 04/24/2019 10:41 AM ORACLE DATABASE CONSULTANT Height 32.25 04/24/2019 10:41 AM ORACLE DATABASE CONSULTANT Body Mass Index documented in this encounter Functional Status Date of [...] impairment: No documented as of this encounter Discharge Summaries * Oneyda Olson APRN-NP - 04/30/2019 10:03 AM ORACLE DATABASE CONSULTANT Physician Discharge Summary Name: Leonid Hamilton Jr. 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 83 y.o. 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 Patient tolerated the procedure well. He began having nausea and vomiting. A KUB revealed an ileus. A nasogastric tube was placed and an aggressive bowel r egimen was implemented. He began having bowel function, olerated a clamping tria l and the NG tube was removed. He tolerated a diet. Pain was controlled and all discharge criteria were met. DYANA was removed prior to discharge. Ureteral stent a nd kelsi were left in place at discharge. Condition at Discharge: Stable Discharge Diagnoses: Hospital Problems Active Problems Ureteral tumor Ileus Acute kidney injury Hyperkalemia A. Ureter, "left distal ureter", biopsy: Urothelial [...] and ureter", nephroureterectomy: Urothelial carcinoma in situ. Surgical Procedures: RIGHT DISTAL URETERECTOMY WITH REIMPLANT INTO CONDUIT, LEFT NEPHROURETERECTOMY Significant Diagnostic Studies and Procedures: Pathology Consults: None Patient Disposition: Home Patient instructions/medications: Basic Metabolic Panel (BMP) Standing Status: Future Standing Exp. Date: 06/29/19 Strenuous Activity Restrictions Please refrain from strenuous activity for 6 week(s). No lifting more than 10 p ounds for 6 weeks. Report These Signs and Symptoms Please notify physician if experiencing any chest pain, shortness of breath, ca lf tenderness or unilateral leg swelling, uncontrolled pain, incision redness or foul smelling drainage from wound, fevers >101.5, or any other worsening signs/symptoms. Questions About Your Stay For questions or concerns regarding your hospital stay. Call [phone] You may have questions about your hospital stay after you get home. From 8 AM to 4 PM Monday through Monday, please call . If calling after hours or with urgent questions, please call and ask for the urology resident digital operations analyst. In case of an emergency, please report to your nearest emergency department and contact us on the way. Discharging attending physician: TASIA AMARO [[id number]] Regular Diet You have no dietary restriction. Please continue with a healthy balanced diet. Incision Care *Keep your incision clean and dry. *Shower daily. Wash your incisions with soap and water. *Do not submerge incision in tub, pool, hot tub, or pascual for 4 weeks. *Usually there are not stitches to be removed. Steri-strips (strips of tape) tiana l begin to fall off in 10-14 days. If they remain after 2 weeks, gently remove t hem when they are damp after a shower. *Your incision should gradually look better each day. If you notice unusual swel ling, redness, drainage, have increasing pain at the site, or have a fever great er than 100 degrees, notify your physician immediately. Return Appointment You will have your kelsi and stent removed at this appointment. Begin Cipro t he day prior Provider ONEYDA OLSON [[id number]] Location Urology Clinic Appointment date: 05/13/2019 Appointment time: 1:00 PM Additional Discharge Instructions Your drain has been removed and a dressing has been placed over it. You can exp ect to have drainage over the next few days but this will decrease with time. JAVI KE SURE THAT YOU TAKE THE DRESSING OFF THE DAY AFTER YOU DISCHARGE. Leaving the dressing on for too long can cause an infection. You may place another dressing over it to catch the drainage but change this daily. Once it is no longer draini ng, leave it open to air. Current Discharge Medication List START taking these medications Details cephalexin (KEFLEX) 250 mg capsule Take one capsule by mouth every 12 hours for 11 days. Qty: 22 capsule, Refills: 0 PRESCRIPTION TYPE: Normal ciprofloxacin (CIPRO) 250 mg tablet Take one tablet by mouth daily for 3 days. B egin taking the day prior to stent removal. Qty: 3 tablet, Refills: 0 PRESCRIPTION TYPE: Normal ondansetron (ZOFRAN ODT) 4 mg rapid dissolve tablet Dissolve one tablet by mouth every 6 hours as needed for Nausea or Vomiting. Place on tongue to disolve. Qty: 30 tablet, Refills: 0 PRESCRIPTION TYPE: Normal CONTINUE these medications which have been CHANGED or REFILLED Details lisinopril (ZESTRIL) 5 mg tablet Take one-half tablet by mouth at bedtime daily. Hold until follow up with PCP Qty: 90 tablet PRESCRIPTION TYPE: No Print CONTINUE these medications which have NOT CHANGED Details acetaminophen (TYLENOL) 325 mg tablet Take 2 Tabs by mouth every 6 hours as need ed. Refills: 0 PRESCRIPTION TYPE: OTC albuterol (PROAIR HFA, VENTOLIN HFA, OR PROVENTIL HFA) 90 mcg/actuation inhaler Inhale 2 puffs by mouth into the lungs twice daily. Shake well before use. PRESCRIPTION TYPE: Historical Med aspirin EC 81 mg tablet Take 1 Tab by mouth twice weekly. Monday and Monday Wait 5 days before resuming your aspirin Qty: 90 Tab, Refills: 3 PRESCRIPTION TYPE: No Print budesonide/formoterol (SYMBICORT HFA) 80-4.5 mcg/actuation inhalation Inhale 2 p uffs by mouth into the lungs twice daily. PRESCRIPTION TYPE: Historical Med calcium carbonate/vitamin D-3 (OSCAL-500+D) 1250 mg/200 unit tablet Take 1 Tab b y mouth twice daily with meals. Calcium Carb 1250mg delivers 500mg elemental Ca PRESCRIPTION TYPE: Historical Med diltiazem (CARDIZEM) 90 mg tablet Take 90 mg by mouth every morning. Indications : Leg cramps PRESCRIPTION TYPE: Historical Med docusate (COLACE) 100 mg capsule Take 300 mg by mouth daily. Takes one AM, two a t HS PRESCRIPTION TYPE: Historical Med fish oil /omega-3 fatty acids (SEA-OMEGA) 340/1000 mg capsule Take 1 Cap by mout h twice daily. PRESCRIPTION TYPE: Historical Med gemfibrozil (LOPID) 600 mg tablet Take 600 mg by mouth daily. PRESCRIPTION TYPE: Historical Med levothyroxine (SYNTHROID) 50 mcg tablet Take 50 mcg by mouth daily. PRESCRIPTION TYPE: Historical Med magnesium oxide (MAG-OX) 400 mg tablet Take 400 mg by mouth at bedtime daily. In dications: Leg Cramps PRESCRIPTION TYPE: Historical Med meclizine (ANTIVERT) 12.5 mg tablet Take 12.5 mg by mouth three times daily as n eeded. not taking PRESCRIPTION TYPE: Historical Med menthol (BIOFREEZE (MENTHOL)) 4 % gel Apply topically to affected area. Apply t o shoulder as needed PRESCRIPTION TYPE: Historical Med omeprazole DR(+) (PRILOSEC) 40 mg capsule Take 40 mg by mouth daily. PRESCRIPTION TYPE: Historical Med ondansetron (ZOFRAN) 4 mg tablet Take 4 mg by mouth every 8 hours as needed for Nausea or Vomiting. not taking PRESCRIPTION TYPE: Historical Med Ostomy Supplies misc Use 10 Units as directed as Needed (Every 4 days and as nee ded). Ostomy supplies and accessories. One month supply. Qty: 10 Each, Refills: 99 PRESCRIPTION TYPE: Print pramipexole (MIRAPEX) 0.25 mg tablet Take 0.25 mg by mouth twice daily. 1 tablet in the morning and 2 tablets at bedtime PRESCRIPTION TYPE: Historical Med rosuvastatin (CRESTOR) 20 mg tablet Take 20 mg by mouth at bedtime daily. PRESCRIPTION TYPE: Historical Med temazepam (RESTORIL) 30 mg capsule Take 30 mg by mouth at bedtime daily. PRESCRIPTION TYPE: Historical Med traMADol (ULTRAM) 50 mg tablet Take one tablet by mouth every 6 hours as needed for Pain. Indications: pain Qty: 5 tablet, Refills: 0 PRESCRIPTION TYPE: Print vitamins, multiple cap Take 1 Cap by mouth daily. PRESCRIPTION TYPE: Historical Med The following medications were removed from your list. This list includes medic ations discontinued this stay and those removed from your prior med list in our system meloxicam (MOBIC) 15 mg tablet Scheduled appointments: May 13, 2019 1:00 PM ORACLE DATABASE CONSULTANT Post - Op with LISANDRA Modi [facility] (Urology) [address] [facility] Level 2 Pod A [facility] [id number] Jun 07, 2019 2:00 PM CDT Post - Op with Tasia Amaro MD [facility] (Urology) [address] [facility] Level 2 Pod A [facility] [id number] Oct 04, 2019 10:[address] UROGRAM (SCHED ONLY) with CT-MOB [facility] (MOB Radiology) [address] [facility] 2nd fl [facility] [id number] Oct 04, 2019 2:15 PM CDT Return Patient with Tasia Amaro MD [facility] (Urology) [address] [facility] Level 2 Pod A [facility] [id number] Pending items needing follow up: Follow up in one week for staple and stent francisca priyank, follow up in one month with a BMP prior with Dr. Amaro. Signed: LISANDRA Modi 04/30/2019 cc: Primary Care Physician: Min Lindsey Referring physicians: Tasia Amaro * Additional provider(s): LE DATABASE CONSULTANT documented in this encounter Discharge Instructions * Pre-Anesthesia Patient Instructions* Kellie Sepulvdea RN - 04/18/2019 11:05 AM ORACLE DATABASE CONSULTANT GENERAL INFORMATION Before you come to the hospital Make arrangements for a responsible adult to drive you home and stay with you for 24 hours following surgery. Bath/Shower Instructions Take a bath or shower with antibacterial soap the night before or the morning of your procedure. Use clean towels. Put on clean clothes after bath or shower. Avoid using lotion and oils. Sleep on clean sheets if bath or shower is done the night before procedure. Leave money, credit cards, jewelry, and any other valuables at home. [facility] is not responsible for the loss or breakage of persona l items. Remove nail mongolian, makeup and all jewelry (including piercings) before comin g to the hospital. The morning of your procedure: brush your teeth and tongue do not smoke do not shave the area where you will have surgery What to bring to the hospital ID/ Insurance Card Retail Sales Associate Bilingual card Official documents for legal guardianship Copy of your Living Will, Advanced Directives, and/or Durable Power of Attorn ey Small bag with a few personal belongings Cases for glasses/hearing aids/contact lens (bring solutions for contacts) Dress in clean, loose, comfortable clothing Eating or drinking before surgery Do not eat or drink anything after 11:00 p.m. the day before your procedure ( including gum, mints, candy, or chewing tobacco) OR follow the specific instruct ions you were given by your Surgeon. You may have WATER ONLY up to 2 hours before arriving at the hospital. Other instructions Notify your surgeon if: there is a possibility that you are you become ill with a cough, fever, sore throat, nausea, vomiting or flu-like symptoms you have any open wounds/sores that are red, painful, draining, or are new si nce you last saw the doctor you need to cancel your procedure You will receive a call with your surgery arrival time from between 2:30pm an d 4:30pm the last business day before your procedure. If you do not receive a c all, please call [phone] before 4:30pm or [phone] after 4:30pm. Notify us at [facility]: if you need to cancel your procedure if you are going to [place] [address] Park in the Parking Garage, located directly across from the main entrance to the hospital. Railroad Track Mechanic parking is available from 7 AM to 4 PM Monday through Monday. Enter through the ground floor [facility] entrance and check in at the Inf ormation Desk in the lobby. They will validate your parking ticket and direct you to the next location. If you are a woman between the ages of 10 and 55, and have not had a hysterec gera, you will be asked for a urine sample prior to surgery. Please do not urin ate before arriving in the Surgery Waiting Room. Once there, check in and let t he attendant know if you need to provide a sample. LE DATABASE CONSULTANT * Pre-Anesthesia Medication Instructions* Kellie Sepulveda RN - 04/18/2019 11:20 AM ORACLE DATABASE CONSULTANT YOUR MEDICATIONS: acetaminophen (TYLENOL) 325 mg tablet Take 2 Tabs by mouth every 6 hours as needed. albuterol (PROAIR HFA, VENTOLIN HFA, OR PROVENTIL HFA) 90 mcg/actuation inha ler Inhale 2 puffs by mouth into the lungs twice daily. Shake well before use. aspirin EC 81 mg tablet Take 1 Tab by mouth twice weekly. Monday and ay Wait 5 days before resuming your aspirin budesonide/formoterol (SYMBICORT HFA) 80-4.5 mcg/actuation inhalation Inhale 2 puffs by mouth into the lungs twice daily. calcium carbonate/vitamin D-3 (OSCAL-500+D) 1250 mg/200 unit tablet Take 1 T ab by mouth twice daily with meals. Calcium Carb 1250mg delivers 500mg elemental Ca diltiazem (CARDIZEM) 90 mg tablet Take 90 mg by mouth every morning. Indicat ions: Leg cramps docusate (COLACE) 100 mg capsule Take 300 mg by mouth daily. Takes one AM, t wo at HS fish oil /omega-3 fatty acids (SEA-OMEGA) 340/1000 mg capsule Take 1 Cap by mouth twice daily. gemfibrozil (LOPID) 600 mg tablet Take 600 mg by mouth daily. levothyroxine (SYNTHROID) 50 mcg tablet Take 50 mcg by mouth daily. lisinopril (ZESTRIL) 5 mg tablet Take 2.5 mg by mouth at bedtime daily. magnesium oxide (MAG-OX) 400 mg tablet Take 400 mg by mouth at bedtime daily . Indications: Leg Cramps meclizine (ANTIVERT) 12.5 mg tablet Take 12.5 mg by mouth three times daily as needed. not taking meloxicam (MOBIC) 15 mg tablet Take 15 mg by mouth daily. milk of magnesia (CONC) 2,400 mg/10 mL oral suspension Take 10 mL by mouth t wice daily as needed. Indications: CONSTIPATION (Patient not taking: Reported on 04/18/2019) omeprazole DR(+) (PRILOSEC) 40 mg capsule Take 40 mg by mouth daily. ondansetron (ZOFRAN) 4 mg tablet Take 4 mg by mouth every 8 hours as needed for Nausea or Vomiting. not taking Ostomy Supplies misc Use 10 Units as directed as Needed (Every 4 days and as needed). Ostomy supplies and accessories. One month supply. pramipexole (MIRAPEX) 0.25 mg tablet Take 0.25 mg by mouth twice daily. 1 ta blet in the morning and 2 tablets at bedtime rosuvastatin (CRESTOR) 20 mg tablet Take 20 mg by mouth at bedtime daily. temazepam (RESTORIL) 30 mg capsule Take 60 mg by mouth at bedtime daily. traMADol (ULTRAM) 50 mg tablet Take one tablet by mouth every 6 hours as nee ded for Pain. Indications: pain vitamins, multiple cap Take 1 Cap by mouth daily. YOUR MEDICATION INSTRUCTIONS FOR SURGERY: Before surgery Stop the following vitamins, herbals, and natural supplements 14 days before harsh bo: Fish oil Multi-vitamin Stop the following medications 7 days before surgery: Anti-inflammatory medications such as ibuprofen (Advil, Motrin) and naproxen (Aleve) Meloxicam You may use acetaminophen (Tylenol) Morning of surgery On the morning of surgery, do NOT take these medications: Remaining vitamins/supplements Ointments/creams/lotions Aspirin Oscal Colace Lopid Lisinopril Magnesium On the morning of surgery, take ONLY these medications with a sip (1-2 ounces) o f water: Tylenel if needed Albuterol inhaler if needed Symbicort if needed Cardizem Hydrocodone if needed Synthroid Antivert if needed Prilosec Zofran if needed Mirapex Ultram if needed Other information Before surgery, please contact MARIAN Hopkins with any medicine updates or questions . E-mail: [email or web address] Before going home from the hospital, please ask your doctor when you should re-s tart your medicines that were stopped before surgery. LE DATABASE CONSULTANT documented in this encounter Medications at Time of Discharge [...] 500mg elemental Ca diltiazem (CARDIZEM) 90 Take 90 mg by 0 mg tabletIndications: Leg mouth every cramps morning. Indications: Leg cramps docusate (COLACE) 100 mg Take 300 mg 0 capsule by mouth daily. Takes one AM, two at HS fish oil /omega-3 fatty Take 1 Cap by 0 acids (SEA-OMEGA) mouth twice 340/1000 mg capsule daily. gemfibrozil (LOPID) 600 Take 600 mg 0 mg tablet by mouth daily. levothyroxine (SYNTHROID) Take 50 mcg 0 50 mcg tablet by mouth daily. 04/30/2019 lisinopril (ZESTRIL) 5 mg Take one-half 90 tablet 0 tablet tablet by mouth at bedtime daily. Hold until follow up with PCP magnesium oxide (MAG-OX) Take 400 mg 0 400 mg tabletIndications: by mouth at Leg Cramps bedtime daily. Indications: Leg Cramps meclizine (ANTIVERT) 12.5 Take 12.5 mg 0 mg tablet by mouth three times daily as needed. not taking menthol (BIOFREEZE Apply 0 (MENTHOL)) 4 % gel topically to affected area. Apply to shoulder as needed omeprazole DR(+) Take 40 mg by 0 (PRILOSEC) 40 mg capsule mouth daily. 04/30/2019 ondansetron (ZOFRAN ODT) Dissolve one 30 tablet 0 4 mg rapid dissolve tablet by tablet mouth every 6 hours as needed for Nausea or Vomiting. Place on tongue to disolve. ondansetron (ZOFRAN) 4 mg Take 4 mg by 0 tablet mouth every 8 hours as needed for Nausea or Vomiting. not taking 08/17/2016 Ostomy Supplies misc Use 10 Units 10 Each 99 as directed as Needed (Every 4 days and as needed). Ostomy supplies and accessories. One month supply. pramipexole (MIRAPEX) Take 0.25 mg 0 0.25 mg tablet by mouth twice daily. 1 tablet in the morning and 2 tablets at bedtime rosuvastatin (CRESTOR) 20 Take 20 mg by 0 mg tablet mouth at bedtime daily. temazepam (RESTORIL) 30 Take 30 mg by 0 mg capsule mouth at bedtime daily. 04/11/2019 traMADol (ULTRAM) 50 mg Take one 5 tablet 0 tabletIndications: pain tablet by mouth every 6 hours as needed for Pain. Indications: pain vitamins, multiple cap Take 1 Cap by 0 mouth daily. 04/30/2019 05/11/2019 cephalexin (KEFLEX) 250 Take one 22 capsule 0 mg capsule capsule by mouth every 12 hours for 11 days. 05/12/2019 05/15/2019 ciprofloxacin (CIPRO) 250 Take one 3 tablet 0 mg tablet tablet by mouth daily for 3 days. Begin taking the day prior to stent removal. documented as of this encounter Progress Notes * Mann Pham MD - 04/30/2019 5:43 AM ORACLE DATABASE CONSULTANT Urology Progress Note 04/30/2019 ASSESSMENT: Leonid Hamilton Jr. is a 83 y.o. 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 Discussed pathology 04/30 - Heme/ID: afebrile. S/p perioperative antibiotics - OOB/Amb - Dispo: Discharge pending tolerating regular diet Prophylaxis Review: - DVT: Heparin, SCD's - Catheter: No - Abx: Yes Mann Pham MD Urology Resident Please page urology digital operations analyst with questions SUBJECTIVE: Overnight events: Removed NG 2/3. NPO without nausea no emesis. Passing flatus. Had a bowel movement. Ambulating. OBJECTIVE: Vital Signs: Most Recent Vital Signs: Past 24 Ho urs BP: 143/59 (04/30 348) Temp: 36.6 C (97.8 F) (04/30 348) Pulse: 79 (04/30 348) Respirations: 18 PER MINUTE (04/30 348) SpO2: 94 % (04/30 348) BP: (134-153)/(55-59) Temp: [36.4 C (97.5 F)-36.7 C (98 F)] Pulse: [74-85] Respirations: [15 PER MINUTE-18 PER MINUTE] SpO2: [92 %-98 %] General: Alert, no acute distress Pulm: non-labored on room air CV: Regular rate Abd: Soft, appropriately tender, mildly distended. DYANA draining serous. RLQ urost magdalena pink/patent draining yellow with stent in place. Incisions/Wounds: non-tender to palpation. Midline incision stapled C/D/I Extremities: No edema, SCD's in place Labs: Hematology Chemistry Recent Labs 04/30/19 0340 WBC 3.5* HGB 10.5* PLTCT 223 Recent Labs 04/30/19 0340 NA 141 K 4.4 CL 113* CO2 17* BUN 44* CR 2.01* GFR 32* GLU 100 CA 7.9* Intake/Output: Date 04/29/19700 - 04/30/19 0704/30/19700 - 05/01/19 07 Shift 9252-5748 4247-5867 24 Hour Total 1900-0700 24 Hour Total INTAKE Shift Total(mL/kg) OUTPUT Urine(mL/kg/hr) 550 550 Urine Output (ml) (Ileal Conduit 05/17/17 1116 Right) 550 550 Drains 300 135 435 Drain Output (ml) (Kenn Collins Drain 04/24/19 1530 Anterior;Mid Abdomen #1) 100 135 235 Drain Output (ml) ([REMOVED] Nasogastric Tube 04/28/19 1115 Nose 16 FR) 200 2 00 Shift Total(mL/kg) 300(3.4) 685(7.8) 985(11.2) [facility] -300 -685 -985 Weight (kg) 87.9 87.9 87.9 87.9 87.9 87.9 Stool Occurrence: 1 LE DATABASE CONSULTANT Associated attestation - Tasia Amaro MD - 04/30/2019 9:12 AM ORACLE DATABASE CONSULTANT I have personally seen and examined the patient and agree with the resident's ph ysical exam and findings and agree with the plan of care. * Mann Pham MD - 04/29/2019 5:31 AM ORACLE DATABASE CONSULTANT Urology Progress Note 04/29/2019 ASSESSMENT: Leonid Hamilton Jr. is a 83 y.o. 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 S/p perioperative antibiotics - OOB/Amb - Dispo: Continue inpatient care Prophylaxis Review: - DVT: Heparin, SCD's - Catheter: No - Abx: Yes Mann Pham MD Urology Resident Please page urology digital operations analyst with questions SUBJECTIVE: Overnight events: No acute events overnight. NPO without nausea no emesis. Passi ng flatus. Had a bowel movement. Ambulating. OBJECTIVE: Vital Signs: Most Recent Vital Signs: Past 24 Ho urs BP: 104/57 (04/29 516) Temp: 36.6 C (97.8 F) (04/29 516) Pulse: 82 (04/29 516) Respirations: 16 PER MINUTE (04/29 516) SpO2: 94 % (04/29 516) BP: (104-151)/(57-69) Temp: [36.6 C (97.8 F)-37.2 C (98.9 F)] Pulse: [81-96] Respirations: [14 PER MINUTE-18 PER MINUTE] SpO2: [93 %-96 %] General: Alert, no acute distress, NG output thin brown Pulm: non-labored on room air CV: Regular rate Abd: Soft, appropriately tender, mildly distended. DYANA draining SS. RLQ urostomy pink/patent draining yellow with stent in place. Incisions/Wounds: non-tender to palpation. Midline incision stapled C/D/I Extremities: No edema, SCD's in place Labs: Hematology Chemistry Recent Labs 04/28/19 0421 WBC 6.4 HGB 13.0* PLTCT 241 Recent Labs 04/28/19 0421 NA 138 K 4.9 CL 107 CO2 19* BUN 36* CR 2.29* GFR 27* GLU 141* CA 8.6 Intake/Output: Date 04/28/19700 - 04/29/1969904/29/19700 - 04/30/19 07 Shift 1815-1007 1181-8481 24 Hour Total 1900-0700 24 Hour Total INTAKE I.V.(mL/kg/hr) 221(0.2) 221 Other 60 60 Shift Total(mL/kg) 281(3.2) 281(3.2) OUTPUT Urine(mL/kg/hr) 1005(1) 550 1555 Urine Output (ml) (Ileal Conduit 08/10/16 1116 Right) 2882 402 1982 Drains 1335 60 1395 Drain Output (ml) (Kenn Collins Drain 04/24/19 1530 Anterior;Mid Abdomen #1) 185 60 245 Drain Output (ml) (Nasogastric Tube 04/28/19 1115 Nose 16 FR) 1150 1150 Shift Total(mL/kg) 2340(26.6) 610(6.9) 2950(33.6) [facility] -2059 -610 -2669 Weight (kg) 87.9 87.9 87.9 87.9 87.9 87.9 Stool Occurrence: 1 LE DATABASE CONSULTANT * Phong Soto MD - 04/28/2019 6:34 AM ORACLE DATABASE CONSULTANT Urology Progress Note 04/28/2019 ASSESSMENT: Leonid Hamilton Jr. is a 83 y.o. 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 Clements - Pain control: PO with IV breakthrough s/p TAPS - Diet/FEN:advance to regular diet, SLIVF - GI: Start agressive bowel regimen, PPI, zofran prn - Renal: Cr 2.29 (2.47), CTM 20 mg IV lasic 04/27 for high K - : Urostomy pink/patent draining - Heme/ID: afebrile. Ancef - OOB/Amb - Dispo: Continue inpatient care Prophylaxis Review: - DVT: Heparin, SCD's - Catheter: No - Abx: Yes Phong Soto MD PGY-1 Urology Please page urology digital operations analyst with questions SUBJECTIVE: Overnight events: No acute events overnight. Patient was less arousable yesterda y afternoon which was attributed to over sedation with narcotics. BMP repeated a t that time and was not concerning. Patient placed on tele for closer monitoring . Tolerating soft diet. Passing flatus but no BM. Ambulating. OBJECTIVE: Vital Signs: Most Recent Vital Signs: Past 24 Ho urs BP: 156/81 (04/28 440) Temp: 36.7 C (98.1 F) (04/28 440) Pulse: 92 (04/28 619) Respirations: 16 PER MINUTE (04/28 619) SpO2: 96 % (04/28 619) BP: (130-170)/(63-81) Temp: [36.3 C (97.3 F)-37.4 C (99.3 F)] Pulse: [74-96] Respirations: [16 PER MINUTE-20 PER MINUTE] SpO2: [93 %-97 %] General: Alert & oriented x3, no acute distress Pulm: non-labored on RA CV: Regular rate Abd: Soft, appropriately tender, non-distended. DYANA SS. RLQ urostomy pink/patent draining yellow with stent in place. Incisions/Wounds: Appropriately tender to palpation. Midline incision stapled C/ D/I Extremities: No edema, SCD's in place Labs: Hematology Chemistry Recent Labs 04/28/19 0421 WBC 6.4 HGB 13.0* PLTCT 241 Recent Labs 04/28/19 0421 NA 138 K 4.9 CL 107 CO2 19* BUN 36* CR 2.29* GFR 27* GLU 141* CA 8.6 Intake/Output: Date 04/27/19700 - 04/28/19 0704/28/19700 - 04/29/19 07 Shift 3478-8563 4815-6679 24 Hour Total 5110-7878 9900-0549 24 Hour Total INTAKE P.O. 3771 349 5787 Shift Total(mL/kg) 1087(12.4) 200(2.3) 1287(14.6) OUTPUT Urine(mL/kg/hr) 1425(1.4) 700 2125 Urine 0 0 0 Urine Output (ml) (Ileal Conduit 08/10/16 1116 Right) 4995 839 2224 Drains 290 170 460 Drain Output (ml) (Kenn Collins Drain 04/24/19 1530 Anterior;Mid Abdomen #1) 290 170 460 Shift Total(mL/kg) 1715(19.5) 870(9.9) 2585(29.4) [facility] -628 -670 -1298 Weight (kg) 87.9 87.9 87.9 87.9 87.9 87.9 Stool Occurrence: 0 LE DATABASE CONSULTANT * Ailyn Jacques RN - 04/27/2019 9:50 AM ORACLE DATABASE CONSULTANT 0950: Pt requesting RN ask primary team to order oxygen study on pt d/t pt requiring oxygen over night. Team paged. No new orders, Dr. Soto requesting to continue to monitor oxygen requirements. 1120: After shower, pt becoming increasingly lethargic. Pt moved to 2L by cristian valentin RN. Pt lethargic, A/O to person and place, PERRLA and BP 170/72, O2 96. Dr. Buckley paged. Dr. Tristan saw pt bedside, orders for stat BMP, change pt to tele st atus and give labetalol. LE DATABASE CONSULTANT * Phong Soto MD - 04/27/2019 6:45 AM ORACLE DATABASE CONSULTANT Urology Progress Note 04/27/2019 ASSESSMENT: Leonid Hamilton Jr. is a 83 y.o. 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 Clements - Pain control: PO with IV breakthrough s/p TAPS - Diet/FEN: advance to FLD, SLIVF - GI: Start agressive bowel regimen, PPI, zofran prn - Renal: Cr 2.52 (2.76), CTM 20 mg IV lasic 04/27 - : Urostomy pink/patent draining - Heme/ID: afebrile. Ancef - OOB/Amb - Dispo: Continue inpatient care Prophylaxis Review: - DVT: Heparin, SCD's - Catheter: No - Abx: Yes Phong Soto MD PGY-1 Urology Please page urology digital operations analyst with questions SUBJECTIVE: Overnight events: No acute events overnight. Pain well controlled. Passing flatu s and liquid BMs. Has appetite. Ambulating. OBJECTIVE: Vital Signs: Most Recent Vital Signs: Past 24 Ho urs BP: 155/77 (04/27 554) Temp: 36.7 C (98 F) (04/27 0505) Pulse: 82 (04/27 619) Respirations: 16 PER MINUTE (04/27 619) SpO2: 92 % (04/27 619) BP: (133-173)/(66-96) Temp: [36.7 C (98 F)-37.4 C (99.3 F)] Pulse: [75-110] Respirations: [16 PER MINUTE-18 PER MINUTE] SpO2: [92 %-94 %] General: Alert & oriented, no acute distress Pulm: non-labored on RA CV: Regular rate Abd: Soft, appropriately tender, non-distended. DYANA SS. RLQ urostomy pink/patent draining yellow with stent in place. Incisions/Wounds: Appropriately tender to palpation. Midline incision stapled C/ D/I Extremities: No edema, SCD's in place Labs: Hematology Chemistry Recent Labs 04/27/19 0458 WBC 8.9 HGB 11.9* PLTCT 204 Recent Labs 04/27/19 0458 NA 138 K 5.2* CL 109 CO2 18* BUN 31* CR 2.52* GFR 25* GLU 129* CA 8.8 Intake/Output: Date 04/26/19 0701 - 04/27/19 0700 04/27/19 0701 - 04/28/19 0700 Shift 9137-3206 6137-2127 24 Hour Total 8240-2465 7039-8991 24 Hour Total INTAKE P.O. 703 689 1987 Other 120 120 Shift Total(mL/kg) 960(10.9) 240(2.7) 1200(13.7) OUTPUT Urine(mL/kg/hr) 925(0.9) 975 1900 Urine 300 300 Urine Output (ml) (Ileal Conduit 08/10/16 1116 Right) 731 442 3232 Drains 220 90 310 Drain Output (ml) (Kenn Collins Drain 04/24/19 1530 Anterior;Mid Abdomen #1) 220 90 310 Shift Total(mL/kg) 1145(13) 1065(12.1) 2210(25.1) NET -185 -825 -1010 Weight (kg) 87.9 87.9 87.9 87.9 87.9 87.9 Stool Occurrence: 1 I have personally seen and examined the patient and agree with the resident's ph ysical exam and findings and agree with the plan of care. LE DATABASE CONSULTANT * Narayan Rosario, RT - 04/27/2019 6:32 AM ORACLE DATABASE CONSULTANT RT Adult Assessment Note NAME:Leonid Hamilton Jr. :1935 AGE: 83 y.o. ADMISSION DATE: 04/24/2019 DAYS ADMITTED: LOS: 3 days RT Treatment Plan: Protocol Plan: Medications Albuterol: MDI PRN Protocol Plan: Procedures IPPB: Place a nursing order for "IS Q1h While Awake" for any of Lung Expansion i ndicators Oxygen/Humidity: O2 to keep SpO2 > 92% Monitoring: Pulse oximetry BID & PRN Comment: symbicort bid Additional Comments: Impressions of the patient: Pt is very sleepy has a RA sao2 of 89%. Clear breat h sounds with a good nonproductive cough Intervention(s)/outcome(s): albuterol PRN, symbicort BID per home reg, oximetry, oxygen too keep sao2>92 IS with nursing Patient education that was completed: none Recommendations to the care team: none Vital Signs: Pulse: 82 RR: 16 PER MINUTE SpO2: 92 % O2 Device: Cannula Liter Flow: 1 Lpm O2%: Breath Sounds: Respiratory Effort: Non-Labored LE DATABASE CONSULTANT * Neri De Souza RN - 04/26/2019 2:04 PM ORACLE DATABASE CONSULTANT The patient states being in pain but states "I want to be done with all the medi cine." has talked patient into not having any of his prescribed oxycodone d o to him not "being his best when he is on it," she states its bad for him becau se he gets too sleepy. Patient has also refused zofran despite having nausea. Dr Galindo Notified about all of this, a different kind of pain medication has been presc ribed. LE DATABASE CONSULTANT * Neri De Souza RN - 04/26/2019 1:00 PM ORACLE DATABASE CONSULTANT Pt was educated at the beginning of this RNs shift about the importance of using the call light before getting up due to being unsteady on his feet still. This RN was in the room to help walk the patient when the pts suggested the need for no walker and just the IV pole. This RN stepped in and educated the and patient again about the importance of a walker when very unsteady. Later on du ring this RNs shift the patient was taken to the bathroom by the aide, the patie nt pulled the bathroom alarm but then the turned it off and got the patient up with just the IV pole and on her own. The then continued to walk to [facility] alone in the hallway with just the IV pole and gait belt. This RN was notif ied by an aide at what they saw and this RN went into the room again to educate on the importance of calling out and getting someone to walk with them and the i mportance of all of our safety measures we have in place. This RN notified the phil lees nurse about the event and will continue to educate throughout the day LE DATABASE CONSULTANT * Lili Hooker RN - 04/26/2019 7:03 AM ORACLE DATABASE CONSULTANT I have reviewed the notes, assessment, and/or procedures performed by Sadiateto benavides student and concur with her/his documentation unless otherwise noted. LE DATABASE CONSULTANT * Megan Roe MD - 04/26/2019 5:38 AM ORACLE DATABASE CONSULTANT Urology Progress Note 04/26/2019 ASSESSMENT: Leonid Hamilton Jr. is a 83 y.o. 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 Amaro - Pain control: PO with IV breakthrough s/p TAPS - Diet/FEN: CLD, mIVF - GI: Start agressive bowel regimen, PPI, zofran prn Obtain KUB - Renal: Cr 2.64 (1.24), CTM - : Urostomy pink/patent draining - Heme/ID: afebrile. Ancef - OOB/Amb - Dispo: Continue inpatient care Prophylaxis Review: - DVT: Heparin, SCD's - Catheter: No - Abx: Yes Megan Roe MD PGY-1 Urology Please page urology digital operations analyst with questions SUBJECTIVE: Overnight events: No acute events overnight. Pain moderately controlled on curre nt regimen. Tolerating diet, intermittent nausea, denies emesis. - flatus. - BM. Has ambulated. OBJECTIVE: Vital Signs: Most Recent Vital Signs: Past 24 Ho urs BP: 138/77 (04/26 330) Temp: 37.5 C (99.5 F) (04/26 330) Pulse: 78 (04/26 330) Respirations: 16 PER MINUTE (04/26 330) SpO2: 92 % (04/26 330) BP: (129-155)/(58-77) Temp: [36.7 C (98.1 F)-37.5 C (99.5 F)] Pulse: [73-90] Respirations: [15 PER MINUTE-18 PER MINUTE] SpO2: [92 %-98 %] General: Alert & oriented, no acute distress Pulm: non-labored on RA CV: Regular rate Abd: Soft, appropriately tender, non-distended. DYANA SS. RLQ urostomy pink/patent draining yellow with stent in place. Incisions/Wounds: Appropriately tender to palpation. Midline incision stapled C/ D/I Extremities: No edema, SCD's in place Labs: Hematology Chemistry Recent Labs 04/25/19426 WBC 9.7 HGB 12.1* PLTCT 184 Recent Labs 04/25/19426 NA 136* K 5.1 CL 105 CO2 19* BUN 28* CR 2.64* GFR 23* GLU 174* CA 8.4* Intake/Output: Date 04/25/19700 - 04/26/19 0704/26/19700 - 04/27/19 0700 Shift 0917-3905 7973-4036 24 Hour Total 8809-7292 1890-5202 24 Hour Total INTAKE P.O. 960 0 960 I.V.(mL/kg/hr) 3000 3000 Shift Total(mL/kg) 960(10.9) 3000(34.1) 3960(45) OUTPUT Urine(mL/kg/hr) 200(0.2) 650 850 Urine 200 0 200 Urine Output (ml) (Ileal Conduit 08/10/16 1116 Right) 650 650 Urine Output (ml) (Nephroureteral Drain 04/24/19 1507 ) 0 0 Emesis 0 0 Emesis 0 0 Drains 155 260 415 Drain Output (ml) (Kenn Collins Drain 04/24/19 1530 Anterior;Mid Abdomen #1) 155 260 415 Other 0 0 Stool (ml) 0 0 Shift Total(mL/kg) 355(4) 910(10.4) 1265(14.4) NET 605 9835 2695 Weight (kg) 87.9 87.9 87.9 87.9 87.9 87.9 Stool Occurrence: 0 I have personally seen and examined the patient and agree with the resident's ph ysical exam and findings and agree with the plan of care. LE DATABASE CONSULTANT * Leda Barrientos RN - 04/25/2019 7:01 PM ORACLE DATABASE CONSULTANT I have reviewed the notes, assessment, and/or procedures performed by Neri stubbs RN and concur with her/his documentation unless otherwise noted. LE DATABASE CONSULTANT * Lili Hooker RN - 04/25/2019 7:00 AM ORACLE DATABASE CONSULTANT I have reviewed the notes, assessment, and/or procedures performed by Sadia benavides Logistics Supervisor and concur with her documentation unless otherwise noted. LE DATABASE CONSULTANT * Tasia Amaro MD - 04/25/2019 5:40 AM ORACLE DATABASE CONSULTANT Urology Progress Note 04/25/2019 ASSESSMENT: Leonid Hamilton Jr. is a 83 y.o. 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 Amaro - Pain control: PO with IV breakthrough s/p TAPS - Diet/FEN: CLD, mIVF Given 1L fluid bolus this morning - GI: bowel regimen, PPI, zofran prn - Renal: Cr 2.64 (1.24), CTM - : Urostomy pink/patent draining - Heme/ID: afebrile. Ancef - OOB/Amb - Dispo: Continue inpatient care Prophylaxis Review: - DVT: Heparin, SCD's - Catheter: No - Abx: Yes Megan Roe MD PGY-1 Urology Please page urology digital operations analyst with questions SUBJECTIVE: Overnight events: No acute events overnight. Pain well controlled on current reg imen. Minimal PO intake. Tolerating diet without nausea or emesis, has hiccups. - flatus. - BM. Has not ambulated. OBJECTIVE: Vital Signs: Most Recent Vital Signs: Past 24 Ho urs BP: 134/70 (04/25 424) ABP: 157/67 (04/24 1999) Temp: 37.3 C (99.2 F) (04/25 424) Pulse: 90 (04/25 424) Respirations: 18 PER MINUTE (04/25 424) SpO2: 92 % (04/25 424) Height: 165.1 cm (65") (04/24 1040) Weight: 87.9 kg (193 lb 12.8 oz) (04/24 1040) BP: (120-166)/(63-89) ABP: (157-189)/(67-76) Temp: [36 C (96.8 F)-37.7 C (99.9 F)] Pulse: [68-92] Respirations: [10 PER MINUTE-19 PER MINUTE] SpO2: [92 %-100 %] General: Alert & oriented, no acute distress Pulm: non-labored on RA CV: Regular rate Abd: Soft, appropriately tender, non-distended. DYANA SS. RLQ urostomy pink/patent draining light pink with stent in place. Incisions/Wounds: Appropriately tender to palpation. Midline incision stapled C/ D/I, dressing removed Extremities: No edema, SCD's in place Labs: Hematology Chemistry Recent Labs 04/25/19426 WBC 9.7 HGB 12.1* PLTCT 184 Recent Labs 04/24/19 1300 NA 137 K 4.0 GLU 108* Intake/Output: Date 04/24/19 07 - 04/25/19 0700 04/25/19 07 - 04/26/19 0700 Shift 8920-0575 5739-6234 24 Hour Total 8132-5653 3139-9791 24 Hour Total INTAKE P.O. 50 0 50 I.V.(mL/kg/hr) 2400(2.3) 2400 Shift Total(mL/kg) 2450(27.9) 0(0) 2450(27.9) OUTPUT Urine(mL/kg/hr) 185 185 Urine 0 0 Urine Output (ml) (Ileal Conduit 08/10/16 1116 Right) 185 185 Drains 20 85 105 Drain Output (ml) (Kenn Collins Drain 04/24/19 1530 Anterior;Mid Abdomen #1) 20 85 105 Other 200 200 Estimated Blood Loss 200 200 Shift Total(mL/kg) 220(2.5) 270(3.1) 490(5.6) NET 2230 -270 1960 Weight (kg) 87.9 87.9 87.9 87.9 87.9 87.9 I have personally seen and examined the patient and agree with the resident's ph ysical exam and findings and agree with the plan of care. LE DATABASE CONSULTANT * Jessica Bear RT - 04/24/2019 10:32 PM ORACLE DATABASE CONSULTANT RT Adult Assessment Note NAME:Leonid Hamilton Jr. :1935 AGE: 83 y.o. ADMISSION DATE: 04/24/2019 DAYS ADMITTED: LOS: 0 days RT Treatment Plan: Protocol Plan: Procedures Comment: Symbicort BID Additional Comments: Impressions of the patient: Patient resting on room air Intervention(s)/outcome(s): Symbicort BID Patient education that was completed: Na Recommendations to the care team: Na Vital Signs: Pulse: 90 RR: 14 PER MINUTE SpO2: 92 % O2 Device: Liter Flow: O2%: 21 % Breath Sounds: Clear (implies normal) Respiratory Effort: Non-Labored LE DATABASE CONSULTANT * Kellie Sepulveda RN - 04/18/2019 11:27 AM ORACLE DATABASE CONSULTANT PAC phone triage completed with patient's for surgery on 04/24/[address] Teto cheng. Medications, allergies and medical history reviewed and updated in chart. Patient had procedure on 04/11/19. denies any cardiac or pulmonary c hanges since last procedure. reports SOB w/activity, no reports of CP. Denies URI symptoms at this time. No PAC visit indicated. Preop and medication instructions reviewed with patient's . No vitamins or s upplements for 14 days and no NSAIDS for 7 days before surgery. NPO after 11 pm the night before surgery but ok to drink water until 2 hours bef ore arrival at hospital. Patient verbalized understanding and copy of instructio ns emailed to them LE DATABASE CONSULTANT documented in this encounter H&P Notes * Denton Nguyen MD - 04/24/2019 11:37 AM ORACLE DATABASE CONSULTANT History and Physical Update Note Allergies: Bee venom protein (honey bee) Lab/Radiology/Other Diagnostic Tests: 24-hour labs: Results for orders placed or performed during the hospital encounter of 04/24/19 (from the past 24 hour(s)) CBC Collection Time: 04/24/19 10:59 AM Result Value Ref Range White Blood Cells 6.7 4.5 - 11.0 K/UL RBC 4.51 4.4 - 5.5 M/UL Hemoglobin 14.2 13.5 - 16.5 GM/DL Hematocrit 41.3 40 - 50 % MCV 91.4 80 - 100 FL MCH 31.4 26 - 34 PG MCHC 34.3 32.0 - 36.0 G/DL RDW 17.2 (H) 11 - 15 % Platelet Count 205 150 - 400 K/UL MPV 7.4 7 - 11 FL Point of Care Testing: (Last 24 hours): I have examined the patient, and there are no significant changes in their condi tion, from the previous H&P performed on 04/05/2019. Denton Nguyen MD [id number] LE DATABASE CONSULTANT * Tasia Amaro MD - 04/05/2019 1:15 PM ORACLE DATABASE CONSULTANT Date of Service: 04/05/2019 Subjective: Leonid Hamilton Jr. is a 83 y.o. male. History of Present Illness 83-year-old white male with a history of bladder cancer status post radical cyst ectomy with ileal conduit July 2016 for pTis N0 MX urothelial cell carcinoma. He also had an incidentally discovered Selina 3+ 4P T3a prostate cancer. He retu rns today in follow-up. His major complaint is that he has had some hematuria. This appeared to be occurring every time he took his Plavix. They have since s topped his Plavix and is not having any further hematuria. They deny any blood per urethra fevers chills or other problems. Medical History: Diagnosis Date Arthritis Bladder cancer (HCC) Cancer of prostate (HCC) Coronary artery disease Disorder of thyroid gland Hearing reduced Heart disease Hyperlipidemia Hypothyroidism Myocardial infarction (HCC) 1999 Surgical History: Procedure Laterality Date CORONARY ARTERY BYPASS GRAFT 1999 x 1 KNEE REPLACEMENT Left 2012 PROSTATECTOMY 2014 partial CYSTOSCOPY 03/10/2015 Blue light cystoscopy and TURBT BLUE LIGHT CYSTOSCOPY, TRANSURETHRAL RESECTION BLADDER TUMOR, BILATERAL RETR OGRADE PYELOGRAMS N/A 09/15/2015 Performed by T[facility] BLUE LIGHT CYSTOSCOPY, TRANSURETHRAL RESECTION OF BLADDER TUMOR, BILATERAL R ETROGRADE PYELOGRAMS N/A 07/07/2016 Performed by Tasia Am[facility] MD at [facility] RADICAL CYSTECTOMY WITH ILEAL CONDUIT AND BILATERAL PELVIC LYMPH NODE DISSEC TION. N/A 08/10/2016 Performed by Tasia Am[facility] MD [facility] COLONOSCOPY HX HEART CATHETERIZATION 12 heart caths-5 stents, most recent 2011 Social History Socioeconomic History Marital status: Spouse name: Not on file Number of children: Not on file Years of education: Not on file Highest education level: Not on file Occupational History Not on file Tobacco Use Smoking status: Former Smoker Packs/day: 1.50 Years: 20.00 Pack years: 30.00 Types: Cigarettes, Cigars Last attempt to quit: 03/27/1974 Years since quittin.0 Smokeless tobacco: Never Used Substance and Sexual Activity Alcohol use: No Drug use: No Sexual activity: Not Currently Other Topics Concern Not on file Social History Narrative Not on file Family History Problem Relation Age of Onset Arthritis-osteo Mother Thyroid Disease Mother Diabetes Father Arthritis-osteo Father Asthma Sister Review of Systems Constitutional: Negative for chills, fatigue and fever. HENT: Negative for hearing loss. Eyes: Negative for visual disturbance. Respiratory: Negative for shortness of breath. Cardiovascular: Negative for chest pain and leg swelling. Gastrointestinal: Negative for abdominal pain. Genitourinary: Positive for hematuria. See HPI Musculoskeletal: Negative for back pain. Skin: Negative for rash. Neurological: Negative for weakness. Psychiatric/Behavioral: Negative for confusion. Objective: acetaminophen (TYLENOL) 325 mg tablet Take 2 Tabs by mouth every 6 hours as needed. albuterol (PROAIR HFA, VENTOLIN HFA, OR PROVENTIL HFA) 90 mcg/actuation inha ler Inhale 2 puffs by mouth into the lungs twice daily. Shake well before use. aspirin EC 81 mg tablet Take 1 Tab by mouth twice weekly. Monday and ay Wait 5 days before resuming your aspirin budesonide/formoterol (SYMBICORT HFA) 80-4.5 mcg/actuation inhalation Inhale 2 puffs by mouth into the lungs twice daily. calcium carbonate/vitamin D-3 (OSCAL-500+D) 1250 mg/200 unit tablet Take 1 T ab by mouth twice daily with meals. Calcium [...] Take 400 mg by mouth at bedtime daily . Indications: Leg Cramps meclizine (ANTIVERT) 12.5 mg tablet Take 12.5 mg by mouth three times daily as needed. milk of magnesia (CONC) 2,400 mg/10 mL oral suspension Take 10 mL by mouth t wice daily as needed. Indications: CONSTIPATION omeprazole DR(+) (PRILOSEC) 40 mg capsule Take 40 mg by mouth daily as neede d. ondansetron (ZOFRAN) 4 mg tablet Take 4 [...] by mouth every 6 hours as needed f or Pain. Indications: PAIN traZODone (DESYREL) 150 mg tablet Take 300 mg by mouth at bedtime daily. vitamins, multiple cap Take 1 Cap by mouth daily. Vitals: 04/05/19 1432 BP: 144/72 Pulse: 90 Weight: 92.2 kg (203 lb 3.2 oz) Height: 167.6 cm (66") Body mass index is 32.8 kg/m. Physical Exam Constitutional: Appearance: He is well-developed. HENT: Head: Normocephalic. Eyes: General: Right eye: No discharge. Left eye: No discharge. Neck: Musculoskeletal: Normal range of motion. Cardiovascular: Rate and Rhythm: Normal rate. Pulmonary: Effort: Pulmonary effort is normal. No respiratory distress. Abdominal: General: There is no distension. Palpations: Abdomen is soft. Tenderness: There is no abdominal tenderness. Hernia: A hernia is present. Comments: Stoma appears healthy urine is clear Skin: General: Skin is warm. Findings: No rash. Neurological: General: No focal deficit present. Mental Status: He is alert and oriented to person, place, and time. Psychiatric: Mood and Affect: Mood normal. CT 1. Prior cystoprostatectomy with right lower quadrant urinary diversion. Mild soft tissue thickening of the distal left ureter, which is nonspecific and may be inflammatory. However, tumor remains on the differential. 2. No abdominal or pelvic lymphadenopathy. PSA undetectable Creatinine 1.24 Assessment and Plan: 1. Will call patient with results of CT and discuss ureteroscopy. LE DATABASE CONSULTANT documented in this encounter Miscellaneous Notes * Care Plan - Ailyn Jacques RN - 04/27/2019 1:19 PM ORACLE DATABASE CONSULTANT Problem: Discharge Planning Goal: Participation in plan of care Outcome: Goal Ongoing Pt participated in POC, all questions answered. Problem: Discharge Planning Goal: Knowledge regarding plan of care Outcome: Goal Ongoing Pt and updated on POC, verbalized understanding. Problem: Falls, High Risk of Goal: Absence of falls-Adult Patient Outcome: Goal Ongoing Fall bundle in place, pt and educated on fall bundle and high fall risk fady icy. LE DATABASE CONSULTANT * Care Plan - Neri De Souza RN - 04/26/2019 3:49 PM ORACLE DATABASE CONSULTANT Problem: Discharge Planning Goal: Participation in plan of care Outcome: Goal Ongoing Goal: Knowledge regarding plan of care Outcome: Goal Ongoing Goal: Prepared for discharge Outcome: Goal Ongoing Problem: Falls, High Risk of Goal: Absence of falls-Adult Patient Outcome: Goal Ongoing Problem: VTE, Risk of Goal: Absence of venous thrombosis Outcome: Goal Ongoing Problem: Pain Goal: Management of pain Outcome: Goal Ongoing Goal: Knowledge of pain management Outcome: Goal Ongoing Goal: Progress Toward Pain Management Goals Outcome: Goal Ongoing Problem: Infection, Risk of Goal: Absence of infection Outcome: Goal Ongoing Goal: Knowledge of Infection Control Procedures Outcome: Goal Ongoing LE DATABASE CONSULTANT * Care Plan - Neri De Souza RN - 04/25/2019 5:40 PM ORACLE DATABASE CONSULTANT Problem: Discharge Planning Goal: Participation in plan of care 04/25/2019 1740 by Neri De Souza RN Outcome: Goal Ongoing 04/25/2019 1350 by Neri De Souza RN Outcome: Goal Ongoing Goal: Knowledge regarding plan of care 04/25/2019 174 by Neri De Souza RN Outcome: Goal Ongoing 04/25/2019 1350 by Neri De Souza RN Outcome: Goal Ongoing Goal: Prepared for discharge 04/25/2019 174 by Neri De Souza RN Outcome: Goal Ongoing 04/25/2019 1350 by Neri De Souza RN Outcome: Goal Ongoing Problem: Falls, High Risk of Goal: Absence of falls-Adult Patient 04/25/2019 174 by Neri De Souza RN Outcome: Goal Ongoing 04/25/2019 1350 by Neri De Souza RN Outcome: Goal Ongoing Problem: VTE, Risk of Goal: Absence of venous thrombosis 04/25/20191739 by Neri De Souza RN Outcome: Goal Ongoing 04/25/2019 1350 by Neri De Souza RN Outcome: Goal Ongoing Problem: Pain Goal: Management of pain 04/25/2019 174 by Neri De Souza RN Outcome: Goal Ongoing 04/25/2019 1350 by Neri De Souza RN Outcome: Goal Ongoing Goal: Knowledge of pain management 04/25/2019 174 by Neri De Souza RN Outcome: Goal Ongoing 04/25/2019 1350 by Neri De Souza RN Outcome: Goal Ongoing Goal: Progress Toward Pain Management Goals 04/25/2019 174 by Neri De Souza RN Outcome: Goal Ongoing 04/25/2019 1350 by Neri De Souza RN Outcome: Goal Ongoing Problem: Infection, Risk of Goal: Absence of infection 04/25/2019 174 by Neri De Souza RN Outcome: Goal Ongoing 04/25/2019 1350 by Neri De Souza RN Outcome: Goal Ongoing Goal: Knowledge of Infection Control Procedures 04/25/2019 174 by Neri De Souza RN Outcome: Goal Ongoing 04/25/2019 1350 by Neri De Souza RN Outcome: Goal Ongoing LE DATABASE CONSULTANT * Care Plan - Neri De Souza RN - 04/25/2019 1:50 PM ORACLE DATABASE CONSULTANT Problem: Discharge Planning Goal: Participation in plan of care Outcome: Goal Ongoing Goal: Knowledge regarding plan of care Outcome: Goal Ongoing Goal: Prepared for discharge Outcome: Goal Ongoing Problem: Falls, High Risk of Goal: Absence of falls-Adult Patient Outcome: Goal Ongoing Problem: VTE, Risk of Goal: Absence of venous thrombosis Outcome: Goal Ongoing Problem: Pain Goal: Management of pain Outcome: Goal Ongoing Goal: Knowledge of pain management Outcome: Goal Ongoing Goal: Progress Toward Pain Management Goals Outcome: Goal Ongoing Problem: Infection, Risk of Goal: Absence of infection Outcome: Goal Ongoing Goal: Knowledge of Infection Control Procedures Outcome: Goal Ongoing LE DATABASE CONSULTANT * Case Mgmt DC Plan - Julieta Shook - 04/25/2019 1:44 PM ORACLE DATABASE CONSULTANT Case Management Admission Assessment NAME:Leonid Hamilton Jr. :1935 AGE: 83 y.o. ADMISSION DATE: 04/24/2019 DAYS ADMITTED: LOS: 1 day Todays Date: 04/25/2019 Source of Information: Pt, Spouse, EMR Plan Plan: Case Management Assessment, Assist PRN with SW/NCM Services, Discharge Leah nning for Home Anticipated Pt anticipated to d/c home once medically stable. Spouse will provide transport home and 17/10 care/assistance at home. Pt's spouse is a retired RN. Neither pt o r spouse anticipate any needs at time of d/c. Declined HH. Pt and spouse live in a one-story home and pt is independent with ADLs. SW encouraged pt and spouse to reach out as needed. Patient Address/Phone [address] [phone] (home) Emergency Contact Extended Emergency Contact Information Primary Emergency Contact: Annamarie Hamilton [facility] Mobile Relation: Spouse Secondary Emergency Contact: Grace Conner [facility] Mobile Relation: Daughter Healthcare Directive Healthcare Directive: Yes, patient has a healthcare directive Type of Healthcare Directive: Durable power of test director for healthcare, [facility] re directive Location of Healthcare Directive: Patient does not have it with him/her Would patient like to fill out a (a new) Healthcare Directive?: N/A Psych Advance Directive (Psych unit only): No, patient does not have a Psych Adv ance Directive Transportation Does the patient need discharge transport arranged?: No Transportation Name, Phone and Availability #1: Spouse, Annamarie, Does the patient use Medicaid Transportation?: No Expected Discharge Date Expected Discharge Date: 04/27/19 Expected Discharge Time: 1400 Living Situation Prior to Admission ? Living Arrangements Type of Residence: Home, independent Living Arrangements: Spouse/significant other Bathroom Shower / Tub: Walk-in Shower How many levels in the residence?: 1 Can patient live on one level if needed?: Yes Does residence have entry and/or side stairs?: Yes("A couple") Assistance needed prior to admit or anticipated on discharge: Yes Who provides assistance or could if needed?: SpouseAnnamarie Are they in good health?: Yes Can support system provide 24/7 care if needed?: Yes ? Level of Function Prior level of function: Independent ? Cognitive Abilities Cognitive Abilities: Alert and Oriented, Engages in problem solving and planning , Participates in decision making Financial Resources ? Coverage Primary Insurance: Medicare Secondary Insurance: Medicare Supplement Additional Coverage: RX(Pt reports Rx can sometimes be costly, but is able to af pastor. Pt uses [facility] in [place].) ? Source of Income Source Of Income: Other long term income ? Financial Assistance Needed? None Psychosocial Needs ? Mental Health Mental Health History: No ? Substance Use History Substance Use History Screen: No ? Other None Current/Previous Services ? PCP Min Lindsey, , ? Pharmacy [id number] [address] [facility] [address] [facility] [id number] ? Durable Medical Equipment Durable Medical Equipment at home: Shower Chair, Walker, Quad Cane ? Home Health Receiving home health: No ? Hemodialysis or Peritoneal Dialysis Undergoing hemodialysis or peritoneal dialysis: No ? Tube/Enteral Feeds Receive tube/enteral feeds: No ? Infusion Receive infusions: No ? Private Duty Private duty help used: No ? Home and Community Based Services Home and community based services: No ? Adonis Shook: N/A ? Hospice Hospice: No ? Outpatient Therapy PT: In the past When did patient receive care?: "couple of years ago" Name of rehab location/group: [facility] in [place], [place] Would patient return for future services?: Yes OT: No SUPERVISING CHEF: No ? Longterm Facility/Penitentiary SNF: No NH: No ? Inpatient Rehab IPR: In the past When did patient receive care?: Several years ago Name of Facility: Facility in [place], [place] Would patient return for future services?: Yes ? Long-Term Acute Care Hospital LTACH: No ? Acute Hospital Stay Acute Hospital Stay: In the past Was patient's stay within the last 30 days?: No Julieta Shook LMSW P #: [phone] LE DATABASE CONSULTANT * Anesthesia Post Op Day 1 - Yoli Nieto CRNA - 04/25/2019 9:03 AM ORACLE DATABASE CONSULTANT Anesthesia Follow-Up Evaluation: Post-Procedure Day One Name: Leonid Hamilton Jr. : 1935 Age: 83 y.o. Sex: male Procedure Date: 04/24/2019 Procedure: Procedure(s) with comments: URETEROPLASTY, RIGHT DISTAL URETERECTOMY WITH REIMPLANT INTO CONDUIT, LEFT NEPH ROURETERECTOMY - CASE LENGTH 3 HOURS Physical Assessment Height: 165.1 cm (65") Weight: 87.9 kg (193 lb 12.8 oz) Vital Signs (Last Filed in 24 hours) BP: 129/62 (04/25 746) Temp: 36.7 C (98.1 F) (04/25 746) Pulse: 79 (04/25 746) Respirations: 18 PER MINUTE (04/25 424) SpO2: 94 % (04/25 746) SpO2 Pulse: 88 (04/24 1999) Height: 165.1 cm (65") (04/24 1040) Patient History Allergies Allergies Allergen Reactions Bee Venom Protein (Honey Bee) ANAPHYLAXIS Medications Scheduled Meds:bisacodyL (DULCOLAX) rectal suppository 10 mg, 10 mg, Rectal, BID budesonide/formoterol (SYMBICORT HFA) 80-4.5 mcg/actuation inhalation 2 puff, 2 puff, Inhalation, BID(6-18) ceFAZolin (ANCEF) IVP 1 g, 1 g, Intravenous, Q8H* dilTIAZem HCL (cardIZEM) tablet 90 mg, 90 mg, Oral, QAM8 heparin (porcine) PF syringe 5,000 Units, 5,000 Units, Subcutaneous, Q8H INHALATIONAL SPACING DEVICE [facility] (Cabinet Override), , , NOW levothyroxine (SYNTHROID) tablet 50 mcg, 50 mcg, Oral, QDAY metoclopramide (REGLAN) tablet 5 mg, 5 mg, Oral, ACHS pantoprazole DR (PROTONIX) tablet 40 mg, 40 mg, Oral, QDAY(21) polyethylene glycol 3350 (MIRALAX) packet 17 g, 1 packet, Oral, BID pramipexole (MIRAPEX) tablet 0.25 mg, 0.25 mg, Oral, BID senna/docusate (SENOKOT-S) tablet 1 tablet, 1 tablet, Oral, BID temazepam (RESTORIL) capsule 60 mg, 60 mg, Oral, QHS Continuous Infusions: sodium chloride 0.9 % infusion 125 mL/hr at 04/25/19 0848 PRN and Respiratory Meds:acetaminophen Q4H PRN, albuterol sulfate Q4H PRN, fenta NYL citrate PF Q1H PRN, methocarbamol Q8H PRN, ondansetron (ZOFRAN) IV Q4H PRN, oxyCODONE Q4H PRN Diagnostic Tests Hematology: Lab Results Component Value Date HGB 12.1 04/25/2019 HCT 34.6 04/25/2019 PLTCT 184 04/25/2019 WBC 9.7 04/25/2019 NEUT 68 09/02/2016 ANC 3.10 09/02/2016 ALC 0.70 09/02/2016 DONA 9 09/02/2016 AMC 0.40 09/02/2016 EOSA 7 09/02/2016 ABC 0.00 09/02/2016 MCV 88.6 04/25/2019 MCH 31.0 04/25/2019 MCHC 35.0 04/25/2019 MPV 7.4 04/25/2019 RDW 16.6 04/25/2019 General Chemistry: Lab Results Component Value Date NA 136 04/25/2019 K 5.1 04/25/2019 CL 105 04/25/2019 CO2 19 04/25/2019 GAP 12 04/25/2019 BUN 28 04/25/2019 CR 2.64 04/25/2019 GLU 174 04/25/2019 CA 8.4 04/25/2019 ALBUMIN 3.8 09/02/2016 OBSCA 1.11 08/10/2016 MG 2.1 08/16/2016 TOTBILI 0.4 09/02/2016 PO4 2.4 08/16/2016 Coagulation: No results found for: PT, PTT, INR Follow-Up Assessment Patient location during evaluation: floor Anesthetic Complications: Anesthetic complications: The patient did not experience any anesthestic complic ations. Pain: Management:adequate Level of Consciousness: awake and alert Hydration:acceptable Airway Patency: patent Respiratory Status: acceptable Cardiovascular Status:acceptable Regional/Neuroaxial: LE DATABASE CONSULTANT * Care Plan - Lili Hooker RN - 04/25/2019 12:42 AM ORACLE DATABASE CONSULTANT Problem: Discharge Planning Goal: Participation in plan of care Outcome: Goal Ongoing Flowsheets (Taken 04/25/201940) Participation in Plan of Care: Involve patient/caregiver in care planning decisi on making Note: Pt involved in discharge planning and teaching and verbalizes understanding. Pt questions and concerns addressed regarding discharge Goal: Knowledge regarding plan of care Outcome: Goal Ongoing Flowsheets (Taken 04/25/201940) Knowledge regarding plan of care: Provide admission education to parent/caregive r; Provide infection prevention education; Provide plan of care education; Provi de medication management education; Provide procedural and treatment education; Provide VTE signs and symptoms education; Provide fall prevention education; Pro vide pre-operative teaching Goal: Prepared for discharge Outcome: Goal Ongoing Flowsheets (Taken 04/25/201940) Prepared for discharge: Collaborate with multidisciplinary team for hospital dis charge coordination; Provide discharge activity restrictions education; Provide discharge materials appropriate to patient condition; Provide safe use medical e quipment education; Complete ADL ability assessment; Provide diet and oral healt h education Problem: Falls, High Risk of Goal: Absence of falls-Adult Patient Outcome: Goal Ongoing Flowsheets (Taken 04/25/201940) Absence of falls-Adult Patient: Complete Fall Risk Assessment.; Provide fall pre vention strategies.; Provide safe ambulation.; Provde safe environment.; Impleme nt fall risk bundle.; Consider additional interventions if patient is confused, has gait/balance problems and on high risk medications. Note: Fall bundle in place. Pt educated on fall risk status and verbalizes understandi ng of interventions. Call light within reach. Problem: VTE, Risk of Goal: Absence of venous thrombosis Outcome: Goal Ongoing Flowsheets (Taken 04/25/201940) Absence of venous thrombosis: Assess peripheral circulation; Assess for signs an d symptoms of venous thrombosis; Utilize prevent measures Note: SCD in place and on pt. Pt educated on medications being given to prevent VTE an d importance of ambulation. Problem: Pain Goal: Management of pain Outcome: Goal Ongoing Flowsheets (Taken 04/25/201940) Management of pain: Complete pain assessment scale according to age, condition a nd ability to understand.; In the patient who cannot fully report, observational (behavior) tools are appropriate.; Assess opioid analgesia side-effects.; Assess pain control barriers.; Manage pain.; In the patient who can fully report pain, assess pain characteristics. Note: Pt assessed for pain and given pharmacologic and nonpharmacologic methods for pa in management. Will continue to monitor Goal: Knowledge of pain management Outcome: Goal Ongoing Flowsheets (Taken 04/25/201940) Knowledge of pain management: Provide pain management methods education; Provide pharmacological pain management education; Provide pain scale education Goal: Progress Toward Pain Management Goals Outcome: Goal Ongoing Flowsheets (Taken 04/25/201940) Progress toward pain management goals: Assess progress toward pain management go als; Progress toward pain management goals Problem: Infection, Risk of Goal: Absence of infection Outcome: Goal Ongoing Flowsheets (Taken 04/25/201940) Absence of infection: Assess for infection (Monitor SIRS Criteria); Implement pr evention measures as indicated; Monitor for signs and symptoms of infection; Adm inister pharmacological therapies as ordered Note: Pt assessed for infection. Proper pharmacologic preventions and treatments in pl pualine to prevent/treat infection. Pt educated on treatments being given. Goal: Knowledge of Infection Control Procedures Outcome: Goal Ongoing Flowsheets (Taken 04/25/2019 0041) Knowledge of Infection Control procedures: Provide Isolation Precautions Educati on LE DATABASE CONSULTANT * Operative Report (Direct Entry) - Tasia Amaro MD - 04/24/2019 12:47 PM ORACLE DATABASE CONSULTANT OPERATIVE REPORT Name: Leonid Hamilton Jr. is a 83 y.o. 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 He was counsele d on options and opted to proceed with open ureteral reimplant vs. left nephrour eterectomy. Findings and Description of Operative Procedure: 1. Positive left ureteral margin which persisted with 4 separate margins sent 2. Left nephroureterectomy with kidney and ureter removed en bloc. 3. Left adrenal spared 4. Right ureteral reimplant into existing conduit with ileal conduit revision. 5. Right ureteral diversion stent sewn into the ileal conduit stoma The patient was identified and informed consent obtained and then brought back t o operating room and placed on the table in the supine position. Sequential comp ression devices were placed on the bilateral lower extremities. He received IV a ntibiotics prior to the smooth induction of general anesthesia. A time-out was p erformed with correct identification of the patient and planned procedures. The patient was placed in a supine position and the table flexed slightly and placed in slight Trendelenburg position. The abdomen was prepped and draped in a steri le fashion. A mid-line periumbilical incision was made using Bovie electrocautery which sonny ured approximately 10 cm. Dissection through the subcutaneous tissue and fascia was accomplished with the Bovie electrocautery. The peritoneum was then entered taking care not to injure the underlying viscera or the ileal conduit. The prior small bowel anastomosis, ileal conduit, and distal ureters were visible after t he Bookwalter retractor was placed in the wound for visualization. We then dissected the left and right ureters off of the retroperitoneum and the right iliac vessels. The distal end of the conduit was then excised with both th e left and right ureteroenteric anastomoses. We then oversewed the open distal e nd of the conduit using 3-0 Vicryl sutures. A leak test performed through the il eal conduit stoma demonstrated that this was watertight. Next, the right ureter was then reimplanted using interrupted 4-0 Monocryl sutures in a Mar fashion with a single J urinary stent placed through the conduit and then secured to th e stoma using a 3-0 chromic suture. Leak testing demonstrated that the right ure terovesical anastomosis was watertight, and this anastomosis was tension free. We then continued to mobilize the left ureter towards the tunnel under the sigmo id mesentery. We took a distal ureteral margin for frozen section which returned suspicious for residual carcinoma in situ. We then resected the ureter more pro ximally and 3 more margins were sent for frozen section until only about 6 cm of ureter remained from the renal pelvis. All margins returned positive for atypia and suspicious for carcinoma in situ. Seeing this, we elected to proceed with a left nephroureterectomy. We then mobilized the left colon to further expose the left retroperitoneum. Thi s allowed us to identify the gonadal vein. The ureter was swept gently off of th e Psoas muscle. With careful dissection, we were able to come underneath the ure ter and trace it up towards the renal pelvis. Next, we meticulously dissected th rough the medial aspect of the renal pelvis and ureter in ordered to identify th e renal vessels. Eventually, we were able to find the single right renal artery and renal vein, and we divided these with the 60-mm Endo-ENDY vascular load stapl er, resulting in good hemostasis. One load was used in total. In an adrenal spperior and medial aspect of the kidney, freeing all attachments. We then began the lateral dissection of the kidney. We were eventuaring manner, we then worked around until we were eventually able to free the kidney in the r enal fossa and passed it of en bloc with the ureter as a single specimen. We the n irrigated the wound with 1 liter of sterile saline and the renal fossa appeare d dry with good hemostasis. A 19 Marcin drain was brought out through skin. We th en removed the retractors and all laparotomy sponges. We placed seprafilm to pre vent bowel adhesions. The abdominal fascia then underwent closure with number 1 looped PDS running sut ure. The skin was then closed with a stapler and sterile dressings were applied. A new ileal conduit stoma appliance was then placed. The patient tolerated the procedure well. There were no complications. All spong e and instrument counts were correct at the end of the case. He was awoken from anesthesia and taken to the PACU in good condition. Estimated Blood Loss: 200 ml Complications: None Drains: DYANA Drain in LLQ Implants: Right ureteral diversion stents Disposition: PACU, Stable. Admitted for post-operative care Specimen(s) Removed/Disposition: ID Type Source Tests Collected by Time Destination 1 : LEFT DISTAL URETER Tissue Ureter,Left SURGICAL PATHOLOGY Tasia Huitron MD 04/24/2019 1259 2 : LEFT DISTAL URETER Tissue Ureter,Left SURGICAL PATHOLOGY Tasia Saul MD 04/24/2019 1317 3 : RIGHT DISTAL URETER Tissue Ureter,Right SURGICAL PATHOLOGY Tasia Field MD 04/24/2019 1324 4 : LEFT DISTAL URETER #2 Tissue Ureter,Left SURGICAL PATHOLOGY Tasia Stephens MD 04/24/2019 1344 5 : LEFT DISTAL URETER #2 Tissue Ureter,Left SURGICAL PATHOLOGY Tasia Stephens MD 04/24/2019 1345 6 : LEFT DISTAL URETER #3 Tissue Ureter,Left SURGICAL PATHOLOGY Tasia Stephens MD 04/24/2019 1404 7 : LEFT DISTAL URETER #3 Tissue Ureter,Left SURGICAL PATHOLOGY Tasia Stephens MD 04/24/2019 1405 8 : LEFT DISTAL URETER #4 Tissue Ureter,Left SURGICAL PATHOLOGY Tasia Stephens MD 04/24/2019 1454 9 : LEFT DISTAL URETER #4 Tissue Ureter,Left SURGICAL PATHOLOGY Tasia Stephens MD 04/24/2019 1915 10 : LEFT KIDNEY AND URETER Tissue Kidney, Left SURGICAL PATHOLOGY Tasia Morales MD 04/24/2019 1550 Denton Nguyen MD [id number] ATTESTATION I performed this procedure with a resident. Staff name: Tasia Amaro MD Date: 04/25/2019 LE DATABASE CONSULTANT documented in this encounter Plan of Treatment Date/Time Name Type Priority Associated Diag noses 04/24/2019 11:30 AM ORACLE DATABASE CONSULTANT POC ANES US GUIDED NERVE Imaging Routine BLOCK 04/24/2019 11:40 AM ORACLE DATABASE CONSULTANT POC ANES US GUIDED NERVE Imaging Routine BLOCK 04/24/2019 1:00 PM ORACLE DATABASE CONSULTANT IONIZED CALCIUM,BG Lab STAT Order Schedule Name Type Priority Associated Diag noses Expected: 06/07/2019 (Approximate), Expi res: 06/29/2019 BASIC METABOLIC PANEL Lab Routine Malignan t neoplasm of left ureter (HCC) documented as of this encounter Goals Goal Patient Associated Recent Progress Patient-Stat Aut hor Goal Type Problems ed? 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 Intake RN Recover from illness Hospital Yes Patrick Angel, MARIAN Note: "To heal and recover and get back to normal" documented as of this encounter Procedures Comments Procedure Name Priority Date/Time Associated Diag nosis HC CBC,AUTOMATED Routine 04/30/2019 3:40 AM ORACLE DATABASE CONSULTANT HC BASIC METABOLIC PANEL Routine 04/30/2019 3:40 AM ORACLE DATABASE CONSULTANT CONSULT IV THERAPY TEAM Routine 04/28/2019 10:01 PM ORACLE DATABASE CONSULTANT ABDOMEN AP ONLY SHAHIDA 04/28/2019 12:21 PM ORACLE DATABASE CONSULTANT ABDOMEN AP ONLY Routine 04/28/2019 10:09 AM ORACLE DATABASE CONSULTANT HC CBC,AUTOMATED Routine 04/28/2019 4:21 AM ORACLE DATABASE CONSULTANT HC BASIC METABOLIC PANEL Routine 04/28/2019 4:21 AM ORACLE DATABASE CONSULTANT HC HEPATITIS C REINA Add on 04/27/2019 12:35 PM ORACLE DATABASE CONSULTANT HC HEPATITIS B-S ANTIGEN Add on 04/27/2019 12:35 PM ORACLE DATABASE CONSULTANT BASIC METABOLIC PANEL STAT 04/27/2019 11:40 AM ORACLE DATABASE CONSULTANT HC HIVI&2 SINGLE ASSAY Add on 04/27/2019 4:58 AM [employer]LE DAT[employer]ASE CONSULTANT HC CBC,AUTOMATED Routine 04/27/2019 4:58 AM ORACLE DATABASE CONSULTANT HC BASIC METABOLIC PANEL Routine 04/27/2019 4:58 AM [employer]ACLE DATABASE CONSULTANT ABDOMEN AP ONLY SHAHIDA 04/26/2019 7:37 AM [employer]ACLE DATABASE CONSULTANT HC CBC,AUTOMATED Routine 04/26/2019 5:33 AM [employer]ACLE DATABASE CONSULTANT HC BASIC METABOLIC PANEL Routine 04/26/2019 5:33 AM [employer]ACLE DATABASE CONSULTANT HC CBC,AUTOMATED Routine 04/25/2019 4:27 AM [employer]ACLE DATABASE CONSULTANT HC BASIC METABOLIC PANEL Routine 04/25/2019 4:27 AM [employer]ACLE DATABASE CONSULTANT HC GLUCOSE,BG STAT 04/24/2019 1:00 PM [employer]ACLE DATABASE CONSULTANT HC SODIUM,BG STAT 04/24/2019 1:00 PM [employer]ACLE DATABASE CONSULTANT HC POTASSIUM, BG STAT 04/24/2019 1:00 PM [employer]ACLE DATABASE CONSULTANT HC HEMOGLOBIN (BG) STAT 04/24/2019 1:00 PM [employer]ACLE DATABASE CONSULTANT HC BLOOD STAT 04/24/2019 GASES;(CALCULATED 02) 1:00 PM [employer]ACLE DATABASE CONSULTANT HC FROZEN SECTION #1 Routine 04/24/2019 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 04/24/2019 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) HC CBC,AUTOMATED STAT 04/24/2019 10:59 AM [employer]ACLE DATABASE CONSULTANT HC ABO GROUP STAT 04/24/2019 10:59 AM [employer]ACLE DATABASE CONSULTANT TELEMETRY STRIPS-SCAN 04/24/2019 12:00 AM [employer]ACLE DATABASE CONSULTANT documented in this encounter Results * CBC (04/30/2019 3:40 AM ORACLE DATABASE CONSULTANT) White Blood 3.5 (L) 4.5 - 11.0 [...] MAIN LAB Specimen Blood Performing Organization Address City/[facility] Ph one Number [facility] [address] [place] [address] * BASIC METABOLIC PANEL (04/30/2019 3:40 AM ORACLE DATABASE CONSULTANT) Pathologist [facility] Sodium 141 137 - 147 MMOL/L K[facility] [...] (L) >60 mL/min [facility] MAIN [facility] Comment: Citizen Of [place] The eGFR is not validated f or use in drug dosing adjustments. Continue to use estimated creatinine clearance per dosing reference text. Please contact the Clinical Pharmacist for questions. eGFR 38 (L) >60 mL/min [facility] Citizen [place] Comment: The eGFR is not validated for use in drug dosing adjustments. Continue to use estimated creatinine clearance per dosing reference text. Please contact the Clinical Pharmacist for questions. Specimen Blood Performing Organization Address City/State/Zipcode Ph one Number [facility] [address] [place] [address] * ABDOMEN AP ONLY (04/28/2019 12:21 PM ORACLE DATABASE CONSULTANT) Specimen Impressions Performed At Satisfactory placement of [...] Interface, Radiant Results - 04/29/2019 7:26 AM [employer]ACLE DATABASE CONSULTANT Procedure: ABDOMEN AP ONLY Clinical Indication: Nasogastric [...] on 04/29/2019 7:02 AM. Performing Organization Address [facility] Ph one Number [facility] RAD RESULTS * ABDOMEN AP ONLY (04/28/2019 10:09 AM ORACLE DATABASE CONSULTANT) Specimen Impressions Performed At Right lower quadrant urinary diversion with gaseous distention of multiple small [facility] RAD RESULTS bowel loops with minimal gas in the col on. These findings are likely reflective of postoperative ileus or developing kingsley wel obstruction. Advise continued radiographic follow-up. By my electronic signature, I attest th at I have personally reviewed the images for this examination and formulated the interpretations and opinions expressed in this report Finalized by Jacob Davidson 04/28/2019 11:16 AM. Dictated by Ace Oquendo MD on 04/28/2019 10:17 AM. Narrative Performed At ABDOMEN AP ONLY [facility] RAD RESULTS INDICATION: Nausea, vomiting post-op. r /o ileus. Ureteroplasty, right distal ureterectomy with reimplantation and le ft nephroureterectomy 04/24/2019 COMPARISON: Abdomen AP 04/26/2019. TECHNIQUE: Supine view of the abdomen was obtained. FINDINGS: Abdomen: Gaseous distention of small lo ops, with limited bowel gas in the large bowel. Mild gaseous distention of the s tomach. Right nephroureteral drain in unchanged position. Surgical drain over lies the right lower quadrant. Surgical skin kelsi over midline. Surgical sta ples and suture material overlie the right upper quadrant. Chest: Evaluation of the lower chest de monstrates no acute abnormality. Skeletal Structures: No acute osseous a bnormality. Procedure Note Interface, Radiant Results - 04/28/2019 11:19 AM [employer]ACLE DATABASE CONSULTANT ABDOMEN AP ONLY INDICATION: Nausea, vomiting post-op. r/o ileus. Ureteroplasty, right distal ureterectomy with reimplantation and left nephroureterectomy 04/24/2019 COMPARISON: Abdomen AP 04/26/2019. TECHNIQUE: Supine view of the abdomen was obtained. FINDINGS: Abdomen: Gaseous distention of small loops, with limited bowel gas in the large bowel. Mild gaseous distention of the stomach. Right nephroureteral drain in unchanged position. Surgical drain overlies the right lower quadrant. Surgical skin kelsi over midline. Surgical kelsi and suture material overlie the right upper quadrant. Chest: Evaluation of the lower chest demonstrates no acute abnormality. Skeletal Structures: No acute osseous abnormality. IMPRESSION Right lower quadrant urinary diversion with gaseous distention of multiple small bowel loops with minimal gas in the colon. These findings are likely reflective of postoperative ileus or developing bowel obstruction. Advise continued radiographic follow-up. By my electronic signature, I attest that I have personally reviewed the images for this examination and formulated the interpretations and opinions expressed in this report Finalized by Rivas Larsen M.D. on 04/28/2019 11:16 AM. Dictated by Ace Oquendo MD on 04/28/2019 10:17 AM. Performing Organization Address City/State/Zipcode Ph one Number [facility] RAD RESULTS * CBC (04/28/2019 4:21 AM ORACLE DATABASE CONSULTANT) White Blood 6.4 4.5 - 11.0 K/UL [facility] Cells RBC 4.17 (L) 4.4 - 5.5 M/UL [facility] Hemoglobin 13.0 (L) 13.5 - 16.5 GM/DL [facility] Hematocrit 37.5 (L) 40 - 50 % [facility] MCV 89.9 80 - 100 FL MAIN LAB MCH 31.2 26 - 34 PG MAIN LAB MCHC 34.7 32.0 - 36.0 G/DL MAIN LAB RDW 16.8 (H) 11 - 15 % [facility] MA[facility] Platelet Count 241 150 - 400 K/UL MAIN LAB MPV 7.4 7 - 11 FL [facility] MAIN [facility] Specimen Blood Performing Organization Address [facility] one Number MAIN LAB [address] [place] [address] * BASIC METABOLIC PANEL (04/28/2019 4:21 AM ORACLE DATABASE CONSULTANT) Sodium 138 137 - 147 MMOL/L [facility] Potassium 4.9 3.5 - 5.1 MMOL/L [facility] Chloride 107 98 - 110 MMOL/L [facility] CO2 19 (L) 21 - 30 MMOL/L [facility] Anion Gap 12 3 - 12 [facility] Glucose 141 (H) 70 - 100 MG/DL [facility] Blood Urea 36 (H) 7 - 25 MG/DL [facility] Nitrogen Creatinine 2.29 (H) 0.4 - 1.24 MG/DL [facility] Calcium 8.6 8.5 - 10.6 MG/DL MAIN LAB eGFR Non 27 (L) >60 mL/min MAIN LAB Comment: Citizen Of [place] The eGFR is not validated f or use in drug dosing adjustments. Continue to use estimated creatinine clearance per dosing reference text. Please contact the Clinical Pharmacist for questions. eGFR 33 (L) >60 mL/min MAIN LAB Citizen [place] Comment: The eGFR is not validated for use in drug dosing adjustments. Continue to use estimated creatinine clearance per dosing reference text. Please contact the Clinical Pharmacist for questions. Specimen Blood Performing Organization Address [facility] Ph one Number MAIN LAB [address] [place] [address] * HEPATITIS C AB (04/27/2019 12:35 PM ORACLE DATABASE CONSULTANT) Anti HCV NEG NEG-NEG [facility] MAIN [facility] Specimen Performing Organization Address City/[facility] Ph one Number MAIN LAB [address] [place] [address] * HEPATITIS B SURFACE AG (04/27/2019 12:35 PM ORACLE DATABASE CONSULTANT) Pathologist [facility] HBsAg NEG NEG-NEG MAIN LAB Specimen Performing Organization Address [facility] Number [facility] [address] [place] [address] * BASIC METABOLIC PANEL (04/27/2019 11:40 AM ORACLE DATABASE CONSULTANT) [facility] Sodium 136 (L) 137 - 147 MMOL/L MAIN LAB Potassium 4.4 3.5 - 5.1 MMOL/L MAIN LAB Chloride 107 98 - 110 MMOL/L MAIN LAB CO2 17 (L) 21 - 30 MMOL/L [facility] Anion Gap 12 3 - 12 [facility] Glucose 194 (H) 70 - 100 MG/DL MAIN LAB Blood Urea 31 (H) 7 - 25 MG/DL MAIN LAB Nitrogen Creatinine 2.47 (H) 0.4 - 1.24 MG/DL MAIN LAB Calcium 8.7 8.5 - 10.6 MG/DL MAIN LAB eGFR Non 25 (L) >60 mL/min MAIN LAB Comment: Citizen [place] The eGFR is not validated f or use in drug dosing adjustments. Continue to use estimated creatinine clearance per dosing reference text. Please contact the Clinical Pharmacist for questions. eGFR 30 (L) >60 mL/min MAIN LAB Citizen [place] Comment: The eGFR is not validated for use in drug dosing adjustments. Continue to use estimated creatinine clearance per dosing reference text. Please contact the Clinical Pharmacist for questions. Specimen Blood Performing Organization Address [facility] Ph one Number MAIN LAB [address] [place] [address] * HIV, STAT (04/27/2019 4:58 AM ORACLE DATABASE CONSULTANT) [facility] HIV I/II, Rapid TEST ORDERED UNDER WRONG MAIN LAB ENCOUNTER, TO BE REORDERED CORRECTLY AND MODIFIED/KS/1357 Corrected on 04/29 AT 1358: previously reported as NEG Specimen Performing Organization Address City/[facility] Number MAIN LAB [address] [place] [address] * BASIC METABOLIC PANEL (04/27/2019 4:58 AM ORACLE DATABASE CONSULTANT) [facility] Sodium 138 137 - 147 MMOL/L MAIN LAB Potassium 5.2 (H) 3.5 - 5.1 MMOL/L MAIN LAB Chloride 109 98 - 110 MMOL/L [facility] MA[facility] CO2 18 (L) 21 - 30 MMOL/L [facility] MAIN [facility] Anion Gap 11 3 - 12 [facility] Glucose 129 (H) 70 - 100 MG/DL [facility] MAIN [facility] Blood Urea 31 (H) 7 - 25 MG/DL [facility] MAIN [facility] Nitrogen Creatinine 2.52 (H) 0.4 - 1.24 MG/DL [facility] MAIN [facility] Calcium 8.8 8.5 - 10.6 MG/DL [facility] MAIN [facility] eGFR Non 25 (L) >60 mL/min [facility] MAIN [facility] Comment: Citizen [place] The eGFR is not validated f or use in drug dosing adjustments. Continue to use estimated creatinine clearance per dosing reference text. Please contact the Clinical Pharmacist for questions. eGFR 30 (L) >60 mL/min [facility] MAIN [facility] Citizen [place] Comment: The eGFR is not validated for use in drug dosing adjustments. Continue to use estimated creatinine clearance per dosing reference text. Please contact the Clinical Pharmacist for questions. Specimen Blood Performing Organization Address City/[facility] Ph [facility] Number MA[facility] LAB [address] [place] [address] * CBC (04/27/2019 4:58 AM ORACLE DATABASE CONSULTANT) White Blood 8.9 4.5 - 11.0 K/UL [facility] MAIN [facility] Cells RBC 3.92 (L) 4.4 - 5.5 M/UL [facility] Hemoglobin 11.9 (L) 13.5 - 16.5 GM/DL [facility] MAIN [facility] Hematocrit 34.4 (L) 40 - 50 % [facility] MCV 87.7 80 - 100 FL [facility] MAIN [facility] MCH 30.4 26 - 34 PG [facility] MAIN [facility] MCHC 34.7 32.0 - 36.0 G/DL MAIN LAB RDW 17.3 (H) 11 - 15 % [facility] MA[facility] Platelet Count 204 150 - 400 K/UL [facility] MPV 7.9 7 - 11 FL [facility] MAIN [facility] Specimen Blood Performing Organization Address City/[facility] Ph one Number [facility] [address] [place] [address] * ABDOMEN AP ONLY (04/26/2019 7:37 AM ORACLE DATABASE CONSULTANT) Specimen Impressions Performed At Distention of multiple small bowel loops by gas and f luid with limited amounts [facility] RAD RESULTS of gas and content in the colon. Findin gs likely reflect postprocedural ileus however progress examination in 24 hour s would be useful for reassessment. Pneumoperitoneum. Finalized by Esvin Faria M.D. on 2019 8:34 AM. Dictated by Esvin Faria M.D. on 04/26/2019 8:31 AM. Narrative Performed At distended abdomen, r/o large stomach bubble, ileus. [facility] RAD RESULTS Technique: For AP supine views of the abdomen were obtained. Comparison: No prior examinations are available.. Findings: Changes of right lower quadrant urinary diversion are identified. A retrograde right ureteral stent is in place with i ts proximal pigtail overlying the right kidney. A surgical drain overlies the r ight lower quadrant. There are skin kelsi in the midline. There is disten tion of multiple small bowel loops by gas and fluid. There is a relatively limite d amount of gas in the large bowel. There is mild gaseous distention of the stoma ch. Lucency overlying the liver likely reflects pneumoperitoneum. There are ca lcified granulomas spleen. Procedure Note Interface, Radiant Results - 04/26/2019 8:37 AM ORACLE DATABASE CONSULTANT distended abdomen, r/o large stomach bubble, ileus. Technique: For AP supine views of the abdomen were obtained. Comparison: No prior examinations are available.. Findings: Changes of right lower quadrant urinary diversion are identified. A retrograde right ureteral stent is in place with its proximal pigtail overlying the right kidney. A surgical drain overlies the right lower quadrant. There are skin kelsi in the midline. There is distention of multiple small bowel loops by gas and fluid. There is a relatively limited amount of gas in the large bowel. There is mild gaseous distention of the stomach. Lucency overlying the liver likely reflects pneumoperitoneum. There are calcified granulomas spleen. IMPRESSION Distention of multiple small bowel loops by gas and fluid with limited amounts of gas and content in the colon. Findings likely reflect postprocedural ileus however progress examination in 24 hours would be useful for reassessment. Pneumoperitoneum. Finalized by Esvin Faria M.D. on 04/26/2019 8:34 AM. Dictated by Esvin Faria M.D. on 04/26/2019 8:31 AM. Performing Organization Address City/State/Zipcode Ph one Number [facility] RAD RESULTS * BASIC METABOLIC PANEL (04/26/2019 5:33 AM ORACLE DATABASE CONSULTANT) Sodium 137 137 - 147 MMOL/L [facility] MAIN [facility] Potassium 4.6 3.5 - 5.1 MMOL/L [facility] Chloride 107 98 - 110 MMOL/L [facility] CO2 20 (L) 21 - 30 MMOL/L [facility] Anion Gap 10 3 - 12 [facility] Glucose 137 (H) 70 - 100 MG/DL [facility]IN [facility] Blood Urea 33 (H) 7 - 25 MG/DL [facility] MAIN [facility] Nitrogen Creatinine 2.76 (H) 0.4 - 1.24 MG/DL [facility]IN [facility] Calcium 8.6 8.5 - 10.6 MG/DL [facility] MAIN [facility] eGFR Non 22 (L) >60 mL/min MAIN LAB Comment: Citizen Of [place] The eGFR is not validated f or use in drug dosing adjustments. Continue to use estimated creatinine clearance per dosing reference text. Please contact the Clinical Pharmacist for questions. eGFR 27 (L) >60 mL/min [facility] MAIN [facility] Citizen [place] Comment: The eGFR is not validated for use in drug dosing adjustments. Continue to use estimated creatinine clearance per dosing reference text. Please contact the Clinical Pharmacist for questions. Specimen Blood Performing Organization Address City/[facility] one Number MAIN LAB [address] [place] [address] * CBC (04/26/2019 5:33 AM ORACLE DATABASE CONSULTANT) Pathologist [facility] White Blood 7.6 4.5 - 11.0 K/UL MAIN LAB Cells RBC 3.88 (L) 4.4 - 5.5 M/UL MAIN LAB Hemoglobin 12.1 (L) 13.5 - 16.5 GM/DL MAIN LAB Hematocrit 35.3 (L) 40 - 50 % MAIN LAB MCV 90.9 80 - 100 FL MAIN LAB MCH 31.2 26 - 34 PG MAIN LAB MCHC 34.3 32.0 - 36.0 G/DL MAIN LAB RDW 17.0 (H) 11 - 15 % MAIN LAB Platelet Count 182 150 - 400 K/UL MAIN LAB MPV 7.6 7 - 11 FL MAIN LAB Specimen Blood Performing Organization Address [facility] one Number MAIN LAB [address] [place] [address] * BASIC METABOLIC PANEL (04/25/2019 4:27 AM ORACLE DATABASE CONSULTANT) Pathologist [facility] Sodium 136 (L) 137 - 147 MMOL/L MAIN LAB Potassium 5.1 3.5 - 5.1 MMOL/L MAIN LAB Chloride 105 98 - 110 MMOL/L MAIN LAB CO2 19 (L) 21 - 30 MMOL/L MAIN LAB Anion Gap 12 3 - 12 MAIN LAB Glucose 174 (H) 70 - 100 MG/DL MAIN LAB Blood Urea 28 (H) 7 - 25 MG/DL MAIN LAB Nitrogen Creatinine 2.64 (H) 0.4 - 1.24 MG/DL MAIN LAB Calcium 8.4 (L) 8.5 - 10.6 MG/DL MAIN LAB eGFR Non 23 (L) >60 mL/min MAIN LAB Comment: Citizen [place] The eGFR is not validated f or use in drug dosing adjustments. Continue to use estimated creatinine clearance per dosing reference text. Please contact the Clinical Pharmacist for questions. eGFR 28 (L) >60 mL/min MAIN LAB Citizen [place] Comment: The eGFR is not validated for use in drug dosing adjustments. Continue to use estimated creatinine clearance per dosing reference text. Please contact the Clinical Pharmacist for questions. Specimen Blood Performing Organization Address City/[facility] one Number [facility] [address] [place] [address] * CBC (04/25/2019 4:27 AM ORACLE DATABASE CONSULTANT) White Blood 9.7 4.5 - 11.0 K/UL MAIN LAB Cells RBC 3.91 (L) 4.4 - 5.5 M/UL [facility] Hemoglobin 12.1 (L) 13.5 - 16.5 GM/DL MAIN LAB Hematocrit 34.6 (L) 40 - 50 % MAIN LAB MCV 88.6 80 - 100 FL MAIN LAB MCH 31.0 26 - 34 PG MAIN LAB MCHC 35.0 32.0 - 36.0 G/DL [facility] RDW 16.6 (H) 11 - 15 % MAIN LAB Platelet Count 184 150 - 400 K/UL MAIN LAB MPV 7.4 7 - 11 FL MAIN LAB Specimen Blood Performing Organization Address [facility] one Number [facility] [address] [place] [address] * POTASSIUM, BG (04/24/2019 1:00 PM ORACLE DATABASE CONSULTANT) Potassium 4.0 3.5 - 5.1 MMOL/L [facility] MAIN [facility] Specimen Blood Performing Organization Address [facility] Ph one Number MA[facility] LAB [address] [place] [address] * SODIUM,BG (04/24/2019 1:00 PM ORACLE DATABASE CONSULTANT) Sodium 137 137 - 147 MMOL/L MAIN LAB Specimen Blood Performing Organization Address [facility] Ph one Number MA[facility] LAB [address] [place] [address] * GLUCOSE,BG (04/24/2019 1:00 PM ORACLE DATABASE CONSULTANT) Glucose 108 (H) 70 - 100 MG/DL MAIN LAB Specimen Blood Performing Organization Address [facility] Ph one Number MAIN LAB [address] [place] [address] * BLOOD GASES, ARTERIAL (04/24/2019 1:00 PM ORACLE DATABASE CONSULTANT) pH-Arterial 7.39 7.35 - 7.45 MAIN LAB pCO2-Arterial 41 35 - 45 MMHG MAIN LAB pO2-Arterial 351 (H) 80 - 100 MMHG [facility] MAIN LAB Base 0.3 MMOL/L MAIN LAB Deficit-Arteria l O2 Sat-Arterial 99.9 (H) 95 - 99 % MAIN LAB Bicarbonate-ART 24.2 21 - 28 MMOL/L MAIN LAB -Asim Specimen Blood, arterial - Blood Performing Organization Address [facility] Ph one Number MAIN LAB [address] [place] [address] * HEMOGLOBIN & HEMATOCRIT, BG (04/24/2019 1:00 PM ORACLE DATABASE CONSULTANT) Hemoglobin BG 13.0 (L) 13.5 - 16.5 GM/DL MAIN LAB Hematocrit BG 39.9 (L) 40 - 50 % MAIN LAB Specimen Blood Performing Organization Address [facility] Ph one Number MAIN LAB [address] [place] [address] * SURGICAL PATHOLOGY (04/24/2019 12:59 PM ORACLE DATABASE CONSULTANT) PATHOLOGY [facility] [email or web address] Department of Pathology and Laboratory Medicine [address] [place] [address] Surgical Pathology Office: [phone] SURGICAL PATHOLOGY REPORT NAME: LEONID HAMILTON SURG PATH #: [id number] MR #: [id number] SPECIMEN CLASS: SR BILLING #: [id number] ALT ID #: LOCATION: HC8 DATE OF PROCEDURE: 04/24/2019 AGE: 83 SEX: [...] pathologic alterations None identified Pursuant to the Insurance [employer] Sales Manager Program [facility] Pathology Department, selected slides from this [...] end and entirely submitted in cassettes [id number]. (dlk) J. Fixative: Formalin Labeled: "Left kidney and [...] submitted to Biospecimen Repository Core Facility: No Attendant Coin Operated Laundry sections of the specimen are submitted as follows: J1 Attendant Coin Operated Laundry section of hemorrhagic cortical cyst. J2 Attendant Coin Operated Laundry sections of smaller cortical cyst. J3-J4 Attendant Coin Operated Laundry sections of larger cortical cyst. J5 Entire ureteropelvic junction perpendicular sections. J6-J8 Attendant Coin Operated Laundry sections of renal sinus fat. J9-J11 Entire renal pelvis. J12 Unremarkable renal parenchyma. J13-J19 Entire ureter serially and sequentially from distal to proximal ([id number] resection margin). J20 Vascular resection margins. J21 Attendant Coin Operated Laundry hilar adipose tissue. (dlk) ny/04/24/2019 Intraoperative Consultation: A1FS, ureter, "left distal ureter", [...] Tissue - Kidney, Left Performing Organization Address City/[facility] Ph one Number [facility] MAIN LAB [address] [place] [address] * CBC (04/24/2019 10:59 AM ORACLE DATABASE CONSULTANT) White Blood 6.7 4.5 - 11.0 K/UL [facility] MAIN LAB Cells RBC 4.51 4.4 - 5.5 M/UL [facility] MAIN LAB Hemoglobin 14.2 13.5 - 16.5 GM/DL [facility] MAIN LAB Hematocrit 41.3 40 - 50 % [facility] MAIN LAB MCV 91.4 80 - 100 FL [facility] MAIN LAB MCH 31.4 26 - 34 PG [facility] MAIN LAB MCHC 34.3 32.0 - 36.0 G/DL [facility] MAIN LAB RDW 17.2 (H) 11 - 15 % [facility] MAIN LAB Platelet Count 205 150 - 400 K/UL [facility] MAIN LAB MPV 7.4 7 - 11 FL [facility] MAIN LAB Specimen Blood Performing Organization Address [facility] Ph one Number [facility] MAIN LAB [address] [place] [address] * TYPE & CROSSMATCH (04/24/2019 10:59 AM ORACLE DATABASE CONSULTANT) Units Ordered 4 [facility] MAIN LAB Crossmatch 04/27/2019 [facility] MAIN LAB Expires Record Check FOUND [facility] MAIN [facility] ABO/RH(D) O POS [facility] MAIN LAB Antibody Screen NEG [facility] MA[facility] Electronic YES [facility] MAIN LAB Crossmatch Unit Number [id number] [facility] MA[facility] Blood Component RBC,ADSOL,LEUKO REDUCED,1ST [facility] MAIN L AB Type CONT. Unit Division 0 [facility] MAIN LAB Status OF Unit REL FROM ALLOC [facility] Transfusion OK TO TRANSFUSE [facility] Status Crossmatch COMPATIBLE,ELECTRONIC [facility]IN [facility] Result Unit Number [id number] [facility] Blood Component RBC,ADSOL,LEUKO REDUCED [facility]IN [facility] Type Unit Division 0 [facility] MAIN LAB Status OF Unit REL FROM ALLOC [facility] MAIN LAB Transfusion OK TO TRANSFUSE [facility] MAIN LAB Status Crossmatch COMPATIBLE,ELECTRONIC MAIN LAB Result Specimen Blood Performing Organization Address City/State/Zipcode Ph one Number MAIN LAB [address] [place] [address] * TELEMETRY STRIPS-SCAN (04/24/2019 12:00 AM ORACLE DATABASE CONSULTANT) Narrative Performed At This result has an attachment that is n ot available. Ordered by an unspecified provider. 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 documented in this encounter Administered Medications Action Date Dose Rate Site Medication Order MAR Action 04/24/2019 7:37 PM ORACLE DATABASE CONSULTANT 1,000 mg 400 mL/hr acetaminophen (OFIRMEV) 1,000 mg Given - New injection 100 mL Bag 1,000 mg, Intravenous, 100 mL, Administer over 15 Minutes, ONCE, 1 dose, Mon04/24/19 at 202904/26/2019 5:17 AM ORACLE DATABASE CONSULTANT 650 mg acetaminophen (TYLENOL) tablet 650 mg Given 650 mg, Oral, EVERY 4 HOURS PRN, Starting Mon04/24/19 at 2049, Until Mon04/26/19 at 1650, Pain non-opioid: may b e used alone or in combination with opioi d analgesia, Temp > 38.5 C, TOTAL ACETAMINOPHEN DOSE NOT TO EXCEED 4GM DAILY, 650 mg Given 04/25/2019 9:20 PM ORACLE DATABASE CONSULTANT 650 mg Given 04/25/2019 5:07 PM ORACLE DATABASE CONSULTANT 04/30/2019 9:45 AM ORACLE DATABASE CONSULTANT 650 mg acetaminophen (TYLENOL) tablet 650 mg Given 650 mg, Oral, EVERY 6 HOURS PRN, Starting Mon04/26/19 at 1651, Until Mon04/30/19 at 1204, Pain non-opioid: may be used alone or in combination with opioi d analgesia, TOTAL ACETAMINOPHEN DOSE NOT TO EXCEED 4GM DAILY, ACETAMINOPHEN 1,000 MG/100 ML (10 MG/ML ) IV SOLN (Cabinet Override) NOW, 1 dose, Mon04/24/19 at 1945, Created by cabinet override, Created by cabinet triniide, 04/27/2019 6:18 AM [employer]LE DAT[employer] CONSULTANT 2 puffs albuterol sulfate (PROAIR HFA) inhaler 2 Given puff 2 puff, Inhalation, RT EVERY 4 HOURS PRN, Starting Mon04/24/19 at 1630, Unti l Mon04/30/19 at 1204, RT PROTOCOL, When administered by RT, will be per RT policy., 04/29/2019 9:03 PM [employer]ACLE DATABASE CONSULTANT 10 mg bisacodyL (DULCOLAX) rectal suppository Given 10 mg 10 mg, Rectal, TWICE DAILY, First dose on Mon04/25/19 at 0900, Until Discontinued, Hold for loose stools, 10 mg Given 04/29/2019 12:36 PM [employer]ACLE DATABASE CONSULTANT 10 mg Given 04/28/2019 9:28 PM [employer]ACLE DATABASE CONSULTANT 04/30/2019 6:12 AM [employer]ACLE DATABASE CONSULTANT 2 puffs budesonide/formoterol (SYMBICORT HFA) Given 80-4.5 mcg/actuation inhalation 2 puff 2 puff, Inhalation, TWICE DAILY, First dose (after last modification) on Mon04/25/19 at 0615, Until Discontinued, When administered by RT, will be per RT policy., 2 puffs Given 04/29/2019 5:35 PM [employer]ACLE DATABASE CONSULTANT 2 puffs Given 04/29/2019 5:54 AM [employer]ACLE DATABASE CONSULTANT 04/25/2019 12:23 PM [employer]ACLE DATAB[employer] CONSULTANT 1 g ceFAZolin (ANCEF) IVP 1 g Given 1 g, Intravenous, EVERY 8 HOURS, 3 doses, First dose on Mon04/24/19 at 2100, Last dose on Mon04/25/19 at 1300, IV PUSH -- RECONSTITUTE each 1 g vial b y adding 10 mL 0.9% NACL, 1 g Given 04/25/2019 4:41 AM [employer]LE DATABASE CONSULTANT 1 g Given 04/24/2019 10:11 PM [employer]ACLE DATABASE CONSULTANT 04/24/2019 10:12 PM [employer]ACLE DATABASE CONSULTANT 5 mg cyclobenzaprine (FLEXERIL) tablet 5 mg Given 5 mg, Oral, TWICE DAILY, First dose on Mon04/24/19 at 2100, Until Discontinued 04/28/2019 9:36 AM [employer]LE DATABASE CONSULTANT 90 mg dilTIAZem HCL (cardIZEM) tablet 90 mg Given 90 mg, Oral, EVERY MORNING, First dose on Mon04/25/19 at 0800, Until Discontinued 90 mg Given 04/27/2019 9:00 AM [employer]ACLE DATABASE CONSULTANT 90 mg Given 04/26/2019 9:01 AM [employer]ACLE DATABASE CONSULTANT 04/29/2019 10:13 AM [employer]ACLE DATABASE CONSULTANT 90 mg dilTIAZem HCL (cardIZEM) tablet 90 mg Given 90 mg, Per NG tube, EVERY MORNING, Firs t dose (after last modification) on Mon04/29/19 at 0800, Until Discontinued 04/30/2019 8:54 AM [employer]ACLE DATABASE CONSULTANT 90 mg dilTIAZem HCL (cardIZEM) tablet 90 mg Given 90 mg, Oral, EVERY MORNING, First dose (after last modification) on Mon04/30/19 at 0800, Until Discontinued 04/24/2019 5:26 PM [employer]LE DATAB[employer] CONSULTANT 25 mcg fentaNYL citrate PF (SUBLIMAZE) Given injection 50 mcg 50 mcg, Intravenous, EVERY 5 MIN PRN, Starting Mon04/24/19 at 1609, Until Mon04/24/19 at 2048, Pain Injectable, For Pain Score 7-10, For Pain Score 7-10 Maximum total dose of 200 mcg Hold for RR < 10, PACU (only) 25 mcg Given 04/24/2019 5:15 PM [employer]ACLE DAT[employer] CONSULTANT 04/27/2019 9:02 AM [employer]LE DATABASE CONSULTANT 20 mg furosemide (LASIX) injection 20 mg Given 20 mg, 2 mL, Intravenous, ONCE, 1 dose, 04/27/19 at 0830, PROTECT FROM LIGHT, 04/30/2019 6:12 AM [employer]LE DATAB[employer] CONSULTANT 5,000 Units Abdomina l Tissue heparin (porcine) PF syringe 5,000 Units Given 5,000 Units, Subcutaneous, EVERY 8 HOURS, First dose on Mon04/24/19 at 2200, Until Discontinued, NOTE: This is a HIGH ALERT Medication., 5,000 Units Abdominal Tissue Given 04/29/2019 9:03 PM [employer]LE DATABASE CONSULTANT 5,000 Units Abdominal Tissue Given 04/29/2019 3:46 PM [employer]ACLE DATABASE CONSULTANT 04/27/2019 5:35 AM [employer]LE DATABASE CONSULTANT 1 tablet HYDROcodone/acetaminophen (NORCO) 5/325 Given mg tablet 1-2 tablet 1-2 tablet, Oral, EVERY 6 HOURS PRN, Starting Mon04/26/19 at 1649, Until 04/27/19 at 1130, Pain PO, TOTAL ACETAMINOPHEN DOSE NOT TO EXCEED 4GM DAILY NOTE: This is a HIGH ALERT Medication., 1 tablet Given 04/26/2019 8:29 PM [employer]ACLE DATABASE CONSULTANT 04/27/2019 11:43 AM [employer]LE DATABASE CONSULTANT 10 mg labetalol (NORMODYNE) injection 10 mg Given 10 mg, Intravenous, EVERY 4 HOURS PRN, Starting Mon04/26/19 at 2232, Until Mon04/30/19 at 1204, Blood Pressure..., Systolic Blood Pressure..., >165 systolic, Hold for heart rate < 60 bpm, 10 mg Given 04/26/2019 10:40 PM [employer]LE DAT[employer]ASE CONSULTANT 04/28/2019 9:36 AM [employer]LE DATABASE CONSULTANT 50 mcg levothyroxine (SYNTHROID) tablet 50 mcg Given 50 mcg, Oral, DAILY, First dose on Mon04/25/19 at 0900, Until Discontinued, Give 1 hour before a meal. If patient is receiving tube feedings, hold tube feed 1hr before and 1hr after dose., 50 mcg Given 04/27/2019 9:00 AM [employer]LE DATABASE CONSULTANT 50 mcg Given 04/26/2019 9:00 AM [employer]ACLE DATABASE CONSULTANT 04/29/2019 9:58 AM [employer]LE DATABASE CONSULTANT 50 mcg levothyroxine (SYNTHROID) tablet 50 mcg Given 50 mcg, Per NG tube, DAILY, First dose (after last modification) on Mon04/29/19 at 0900, Until Discontinued, Give 1 aye r before a meal. If patient is receiving tube feedings, hold tube feed 1hr befor e and 1hr after dose., 04/30/2019 6:12 AM [employer]LE DAT[employer] CONSULTANT 50 mcg levothyroxine (SYNTHROID) tablet 50 mcg Given 50 mcg, Oral, DAILY, First dose (after last modification) on Mon04/30/19 at 0600, Until Discontinued, Give 1 hour before a meal. If patient is receiving tube feedings, hold tube feed 1hr befor e and 1hr after dose., 04/27/2019 12:40 AM [employer]LE DATAB[employer] CONSULTANT 500 mg methocarbamol (ROBAXIN) tablet 500 mg Given 500 mg, Oral, EVERY 8 HOURS PRN, Starting Mon04/25/19 at 0806, Until Mon04/28/19 at 1047, Spasms methocarbamol (ROBAXIN) tablet 500 mg 500 mg, Oral, EVERY 8 HOURS PRN, Starting Mon04/29/19 at 1733, Until Mon04/30/19 at 1204, Spasms 04/28/2019 6:02 AM [employer]LE DAT[employer] CONSULTANT 5 mg metoclopramide (REGLAN) tablet 5 mg Given 5 mg, Oral, BEFORE MEALS AND AT BEDTIME , First dose (after last modification) on Mon04/25/19 at 0845, Until Discontinued 5 mg Given 04/27/2019 9:20 PM [employer]ACLE DATABASE CONSULTANT 5 mg Given 04/27/2019 6:08 PM [employer]ACLE DATABASE CONSULTANT 04/29/2019 10:17 AM [employer]ACLE DATABASE CONSULTANT 5 mg metoclopramide (REGLAN) tablet 5 mg Given 5 mg, Per NG tube, BEFORE MEALS AND AT BEDTIME, First dose (after last modification) on Mon04/28/19 at 1100, Until Discontinued 5 mg Given 04/29/2019 6:29 AM [employer]ACLE DATABASE CONSULTANT 5 mg Given 04/28/2019 9:39 PM [employer]ACLE DATABASE CONSULTANT 04/30/2019 6:12 AM [employer]LE DATABASE CONSULTANT 5 mg metoclopramide (REGLAN) tablet 5 mg Given 5 mg, Oral, BEFORE MEALS AND AT BEDTIME , First dose (after last modification) on Mon04/29/19 at 2100, Until Discontinued 5 mg Given 04/29/2019 9:03 PM [employer]ACLE DATABASE CONSULTANT 04/24/2019 10:17 PM [employer]ACLE DATABASE CONSULTANT 10 mL milk of magnesia (CONC) oral suspension Given 10 mL 10 mL, Oral, DAILY, First dose on Mon04/24/19 at 1745, Until Discontinued, 10 mL CONC = 30 mL MOM, 04/25/2019 8:51 AM [employer]LE DATABASE CONSULTANT 10 mL milk of magnesia (CONC) oral suspension Given 10 mL 10 mL, Oral, ONCE, 1 dose, Mon04/25/19 at 0900, 10 mL CONC = 30 mL MOM, 04/29/2019 2:43 PM [employer]LE DATABASE CONSULTANT 200 mL milk/molasses(#) 1:1 rectal enema 200 mL Given 200 mL (1 each), Rectal, TWICE DAILY, First dose on Mon04/26/19 at 0900, Unti l Discontinued 200 mL Given 04/28/2019 9:40 PM [employer]ACLE DATABASE CONSULTANT 200 mL Given 04/28/2019 9:30 AM ORACLE DATABASE CONSULTANT 04/24/2019 6:28 PM [employer]ACLE DATABASE CONSULTANT 4 mg ondansetron (ZOFRAN) injection 4 mg Given 4 mg, Intravenous, ONCE PRN, 1 dose, Starting Mon04/24/19 at 1609, Until Mon04/24/19 at 1828, Other..., nausea/vomiting, First line agent., DO NOT ADMINISTER if given within the last six hours., PACU (only) 04/26/2019 10:02 PM [employer]ACLE DATAB[employer] CONSULTANT 4 mg ondansetron (ZOFRAN) injection 4 mg Given 4 mg, Intravenous, EVERY 4 HOURS PRN, Starting Mon04/24/19 at 2049, Until Mon04/30/19 at 1204, Nausea/Vomiting Injectable 4 mg Given 04/25/2019 1:38 AM [employer]ACLE DATABASE CONSULTANT 04/26/2019 5:17 AM [employer]ACLE DATABASE CONSULTANT 5 mg oxyCODONE (ROXICODONE) tablet 5-15 mg Given 5-15 mg, Oral, EVERY 4 HOURS PRN, Starting Mon04/24/19 at 1646, Until Mon04/26/19 at 1649, Pain PO, Try tramadol first., 5 mg Given 04/25/2019 5:07 PM [employer]ACLE DATABASE CONSULTANT 10 mg Given 04/25/2019 1:16 PM [employer]ACLE DATABASE CONSULTANT OXYCODONE 5 MG PO TAB (Cabinet Override ) NOW, 1 dose, Mon04/24/19 at 1715, Created by cabinet override, Created by cabinet override, 04/29/2019 9:59 AM [employer]LE DATABASE CONSULTANT 40 mg pantoprazole (PROTONIX) injection 40 mg Given 40 mg, Intravenous, DAILY, First dose o n 04/28/19 at 1200, Until Discontinued 40 mg Given 04/28/2019 11:17 AM [employer]ACLE DATABASE CONSULTANT 04/27/2019 9:19 PM [employer]ACLE DATABASE CONSULTANT [address] (PROTONIX) tablet 40 mg Given 40 mg, Oral, DAILY, First dose on Mon04/24/19 at 2100, Until Discontinued, Do not crush or chew tablet., 40 mg Given 04/26/2019 8:30 PM [employer]ACLE DATABASE CONSULTANT 40 mg Given 04/25/2019 9:20 PM ORACLE DATABASE CONSULTANT 04/29/2019 9:58 AM ORACLE DATABASE CONSULTANT 17 g polyethylene glycol 3350 (MIRALAX) Given packet 17 g 17 g (1 packet), Oral, TWICE DAILY, First dose on Mon04/24/19 at 2100, Unti l Discontinued, 8.5 GRAMS = 0.5 PACKET 17 GRAMS = 1 PACKET 34 GRAMS = 2 PACKETS, 17 g Given 04/28/2019 9:39 PM ORACLE DATABASE CONSULTANT 17 g Given 04/28/2019 9:36 AM ORACLE DATABASE CONSULTANT 04/30/2019 8:54 AM ORACLE DATABASE CONSULTANT 0.25 mg pramipexole (MIRAPEX) tablet 0.25 mg Given 0.25 mg, Oral, TWICE DAILY, First dose on Mon04/24/19 at 2100, Until Discontinued 0.25 mg Given 04/29/2019 9:04 PM [employer]ACLE DATABASE CONSULTANT 0.25 mg Given 04/29/2019 10:13 AM ORACLE DATABASE CONSULTANT 04/29/2019 9:03 PM ORACLE DATABASE CONSULTANT 1 tablet senna/docusate (SENOKOT-S) tablet 1 Given tablet 1 tablet, Oral, TWICE DAILY, First dose on Mon04/24/19 at 2100, Until Discontinued, Hold for loose stools, 1 tablet Given 04/29/2019 9:58 AM [employer]ACLE DATABASE CONSULTANT 1 tablet Given 04/28/2019 9:39 PM ORACLE DATABASE CONSULTANT 04/24/2019 10:58 AM [employer]ACLE DATABASE CONSULTANT 1,000 mL 20 mL/hr sodium chloride 0.9 % infusion Given - New 1,000 mL, 1,000 mL, Intravenous, at 20 Bag mL/hr, CONTINUOUS, Starting Mon04/24/19 at 1030, Until Mon04/25/19 at 0622, Pre-Op 04/27/2019 5:04 AM [employer]ACLE DATABASE CONSULTANT 75 mL/hr sodium chloride 0.9 % infusion Given - New 1,000 mL, Intravenous, at 75 mL/hr, Bag CONTINUOUS, Starting Mon04/24/19 at 1700, Until Mon04/27/19 at 0736 75 mL/hr Given - New Bag 04/26/2019 3:30 PM [employer]ACLE DATABASE CONSULTANT 75 mL/hr Dose/Rate Change 04/26/2019 6:26 AM [employer]ACLE DATABASE CONSULTANT 04/25/2019 6:08 AM ORACLE DATABASE CONSULTANT 1,000 mL sodium chloride 0.9 % infusion Given - New 1,000 mL, 1,000 mL, Intravenous, BOLUS, Bag 1 dose, Emily 04/25/19 at 0600 04/25/2019 5:01 PM [employer]LE DATABASE CONSULTANT 1,000 mL sodium chloride 0.9 % infusion Given - New 1,000 mL, 1,000 mL, Intravenous, BOLUS, Bag 1 dose, Emily 04/25/19 at 1600 04/29/2019 10:00 AM [employer]LE DATABASE CONSULTANT 1,000 mL 100 mL/hr sodium chloride 0.9 % infusion Given - New 1,000 mL, 1,000 mL, Intravenous, at 100 Bag mL/hr, CONTINUOUS, Starting Mon04/28/19 at 1100, Until Mon04/30/19 at 0609 1,000 mL 100 mL/hr Given - New Bag 04/28/2019 11:08 PM [employer]ACLE DATABASE CONSULTANT 1,000 mL 100 mL/hr Given - New Bag 04/28/2019 11:45 AM [employer]ACLE DATABASE CONSULTANT 04/29/2019 6:29 AM ORACLE DATABASE CONSULTANT 1,000 mL 999 mL/hr sodium chloride 0.9 % infusion Given - New 1,000 mL, 1,000 mL, Intravenous, at 999 Bag mL/hr, BOLUS, 1 dose, Mon04/29/19 at 054 5 sodium chloride 0.9 % infusion 1,000 mL, 1,000 mL, Intravenous, at 50 mL/hr, CONTINUOUS, Starting Mon04/30/19 at 0615, Until Mon04/30/19 at 1204 04/27/2019 9:19 PM [employer]ACLE DATABASE CONSULTANT 60 mg temazepam (RESTORIL) capsule 60 mg Given 60 mg, Oral, AT BEDTIME DAILY, First dose on Mon04/24/19 at 2100, Until Discontinued 60 mg Given 04/26/2019 10:40 PM [employer]ACLE DATABASE CONSULTANT 60 mg Given 04/25/2019 9:20 PM ORACLE DATABASE CONSULTANT 04/28/2019 9:39 PM [employer]ACLE DATABASE CONSULTANT 60 mg temazepam (RESTORIL) capsule 60 mg Given 60 mg, Per NG tube, AT BEDTIME DAILY, First dose (after last modification) on Mon04/28/19 at 2100, Until Discontinued 04/29/2019 10:09 PM [employer]ACLE DATABASE CONSULTANT 60 mg temazepam (RESTORIL) capsule 60 mg Given 60 mg, Oral, AT BEDTIME DAILY, First dose (after last modification) on Mon04/29/19 at 2100, Until Discontinued 04/26/2019 2:21 PM [employer]ACLE DATABASE CONSULTANT 50 mg traMADol (ULTRAM) tablet 50 mg Given 50 mg, Oral, EVERY 6 HOURS PRN, Starting Mon04/26/19 at 1333, Until Mon04/26/19 at 1650, Pain PO, Try first before oxycodone, 04/27/2019 6:53 PM [employer]LE DATABASE CONSULTANT 50 mg traMADol (ULTRAM) tablet 50 mg Given 50 mg, Oral, EVERY 6 HOURS PRN, Starting 04/27/19 at 1130, Until Mon04/28/19 at 1047, Pain PO 04/30/2019 9:45 AM [employer]ACLE DATABASE CONSULTANT 50 mg traMADol (ULTRAM) tablet 50 mg Given 50 mg, Oral, EVERY 6 HOURS PRN, Starting Mon04/29/19 at 1733, Until Mon04/30/19 at 1204, Pain PO documented in this encounter
--- OUTSIDE RECORDS SUMMARY | 2019-05-20 17:01 | XMS REPORT | Encounter Summary ---
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] P rocedures RI URETEROPLASTY PLASTIC OPERATION URETER RI URETEROPLASTY PLASTIC OPERATION URETER URETEROPLASTY, DISTAL URETERECTOMY WITH REIMPLANT INTO CONDUIT, POSSIBLE LEFT NEPHROURETERECTOMY Encounter Details Care Team Description Date Type Department Tasia Amaro MD [address] [facility] [place] [address] URETEROPLASTY, RIGHT DISTAL URETERECTOMY WITH REIMPLANT INTO CONDUIT, LEFT NEPHROURETERECTOMY 04/24/2019 Surgery [facility] OR [address] [address] Social History Date Tobacco Use Types [...] Comments Vital Sign 194/54 04/30/2019 7:43 AM FINISH PAINTER Blood Pressure 77 04/30/2019 7:43 AM FINISH PAINTER Pulse 36.4 C (97.5 F) 04/30/2019 7:43 AM FINISH PAINTER Temperature - - Respiratory Rate 96% 04/30/2019 7:43 AM FINISH PAINTER Oxygen Saturation - - Inhaled Oxygen Concentration 87.9 kg (193 lb 12.8 oz) 04/24/2019 10:41 AM FINISH PAINTER Weight 165.1 cm (5' 5") 04/24/2019 10:41 AM FINISH PAINTER Height 32.25 04/24/2019 10:41 AM FINISH PAINTER Body Mass Index documented in this encounter [...] Oneyda Olson APRN-NP - 04/30/2019 10:03 AM FINISH PAINTER Physician Discharge Summary Name: Leonid Hamilton Jr. [...] or concerns regarding your hospital stay. Call [phone] You may have questions about your hospital stay after you get home. From 8 AM to 4 PM Monday through Monday, please call . If calling after hours or with urgent questions, please call and ask for the urology resident authorization specialist. In case of an emergency, please report to your nearest emergency department and contact us on the way. Discharging attending physician: TASIA AMARO [[id number]] Regular Diet You have no dietary restriction. Please continue with a healthy balanced diet. Incision Care *Keep your incision clean and dry. *Shower daily. Wash your incisions with soap and water. *Do not submerge incision in tub, pool, hot tub, or pascual for 4 weeks. *Usually there are not stitches to be removed. Steri-strips (strips of tape) tiaan l begin to fall off in 10-14 [...] t he day prior Provider ONEYDA OLSON [[id number]] Location Urology Clinic Appointment date: 05/13/2019 Appointment [...] Scheduled appointments: May 13, 2019 1:00 PM FINISH PAINTER Post - Op with LISANDRA Modi [facility] (Urology) [address] [facility] Level 2 Pod A [facility] [id number] Jun 07, 2019 2:00 PM CDT Post - Op with Tasia Amaro MD [facility] (Urology) [address] [facility] Level 2 Pod A [facility] [id number] Oct 04, 2019 10:[address] UROGRAM (SCHED ONLY) with CT-MOB [facility] (MOB Radiology) [address] 2[address] fl [facility] [id number] Oct 04, 2019 2:15 PM CDT Return Patient with Tasia Amaro MD [facility] (Urology) [address] [facility] Level 2 Pod A [facility] [id number] Pending items needing follow up: Follow up in one week for staple and stent francisca priyank, follow up in one month with a BMP prior with Dr. Amaro. Signed: Oneyda Olson APRN-LONA 04/30/2019 cc: Primary Care Physician: Min Lindsey Referring physicians: Tasia Amaro * Additional provider(s): SH PAINTER documented in this encounter Discharge Instructions * Pre-Anesthesia Patient Instructions* Kellie Sepulveda RN - 04/18/2019 11:05 AM FINISH PAINTER GENERAL INFORMATION Before you come to the [...] and any other valuables at home. [facility] is not responsible for the loss or breakage of persona l items. Remove nail monegasque, makeup and all jewelry (including piercings) before comin g to the hospital. The morning of your procedure: brush your teeth and tongue do not smoke do not shave the area where you will have surgery What to bring to the hospital ID/ Insurance Card Plateman card Official documents for legal guardianship Copy [...] not receive a c all, please call [phone] before 4:30pm or [phone] after 4:30pm. Notify us at [facility]: if you need to cancel your procedure if you are going to be [place] [address] Park in the Parking Garage, located directly across from the main entrance to the hospital. Records Management Manager parking is available from 7 AM to 4 PM Monday through Monday. Enter through the ground floor [facility] entrance and check in at the [...] if you need to provide a sample. SH PAINTER * Pre-Anesthesia Medication Instructions* Kellie Sepulveda RN - 04/18/2019 11:20 AM FINISH PAINTER YOUR MEDICATIONS: acetaminophen (TYLENOL) 325 mg tablet [...] any medicine updates or questions . E-mail: [email or web address] Before going home from the hospital, please ask your doctor when you should re-s tart your medicines that were stopped before surgery. SH PAINTER documented in this encounter Medications at Time [...] Mann Pham MD - 04/30/2019 5:43 AM FINISH PAINTER Urology Progress Note 04/30/2019 ASSESSMENT: Leonid Hamilton [...] bowel regimen, zofran prn NG - removed / - Renal: Cr 2.01 (2.29), CTM - 20 mg IV lasic 04/27 for high K - : Urostomy pink/patent draining. Discussed pathology 04/30 - Heme/ID: afebrile. S/p perioperative antibiotics - OOB/Amb - Dispo: Discharge pending tolerating regular diet Prophylaxis Review: - DVT: Heparin, SCD's - Catheter: No - Abx: Yes Mann Pham MD Urology Resident Please page urology authorization specialist with questions SUBJECTIVE: Overnight events: Removed NG [...] place Labs: Hematology Chemistry Recent Labs 04/30/19 034 WBC 3.5* HGB 10.5* PLTCT 223 Recent Labs 04/30/19 0340 NA 141 K 4.4 CL 113* CO2 17* BUN 44* CR 2.01* GFR 32* GLU 100 CA 7.9* Intake/Output: Date 04/29/19700 - 04/30/19 0700 04/30/19 07 - 05/01/19 07 Shift 24 Hour Total 24 Hour Total INTAKE Shift Total(mL/kg) OUTPUT Urine(mL/kg/hr) 550 550 Urine Output (ml) (Ileal Conduit 08/10/16 1116 Right) 550 550 Drains 300 135 435 Drain Output (ml) (Kenn Collins Drain 04/24/19 1530 Anterior;Mid Abdomen #1) 100 135 235 Drain Output (ml) ([REMOVED] Nasogastric Tube 04/28/19 1115 Nose 16 FR) 200 2 00 Shift Total(mL/kg) 300(3.4) 685(7.8) 985(11.2) NET -300 -685 -985 Weight (kg) 87.9 87.9 87.9 87.9 87.9 87.9 Stool Occurrence: 1 SH PAINTER Associated attestation - Tasia Amaro MD - 04/30/2019 9:12 AM FINISH PAINTER I have personally seen and examined the patient and agree with the resident's ph ysical exam and findings and agree with the plan of care. * Mann Pham MD - 04/29/2019 5:31 AM FINISH PAINTER Urology Progress Note 04/29/2019 ASSESSMENT: Leonid Hamilton [...] Cr (2.29), CTM 20 mg IV lasic 04/27 for high K - : Urostomy pink/patent draining - Heme/ID: afebrile. S/p perioperative antibiotics - OOB/Amb - Dispo: Continue inpatient care Prophylaxis Review: - DVT: Heparin, SCD's - Catheter: No - Abx: Yes Mann Pham MD Urology Resident Please page urology authorization specialist with questions SUBJECTIVE: Overnight events: No acute [...] 141* CA 8.6 Intake/Output: Date 04/28/19700 - 04/29/19 0704/29/19700 - 04/30/19 0700 Shift 9151-5669 0154-2778 24 Hour Total 1900-0700 24 Hour Total INTAKE I.V.(mL/kg/hr) 221(0.2) 221 Other 60 60 Shift Total(mL/kg) 281(3.2) 281(3.2) OUTPUT Urine(mL/kg/hr) 1005(1) 550 1555 Urine Output (ml) (Ileal Conduit 08/10/16 1116 Right) 3566 918 9661 Drains 1335 60 1395 Drain Output (ml) (Kenn Collins Drain 04/24/19 1530 Anterior;Mid Abdomen #1) 185 60 245 Drain Output (ml) (Nasogastric Tube 04/28/19 1115 Nose 16 FR) 1150 1150 Shift Total(mL/kg) 2340(26.6) 610(6.9) 2950(33.6) NET -2 -687 -3453 Weight (kg) 87.9 87.9 87.9 87.9 87.9 87.9 Stool Occurrence: 1 SH PAINTER * Phong Soto MD - 04/28/2019 6:34 AM FINISH PAINTER Urology Progress Note 04/28/2019 ASSESSMENT: Leonid Hamilton [...] 2.29 (2.47), CTM 20 mg IV lasic 2/ for high K - : Urostomy pink/patent draining - Heme/ID: afebrile. Ancef - OOB/Amb - Dispo: Continue inpatient care Prophylaxis Review: - DVT: Heparin, SCD's - Catheter: No - Abx: Yes Phong Soto MD PGY-1 Urology Please page urology authorization specialist with questions SUBJECTIVE: Overnight events: No acute [...] in place Labs: Hematology Chemistry Recent Labs 04/28/191 WBC 6.4 HGB 13.0* PLTCT 241 Recent Labs 04/28/19 0421 NA 138 K 4.9 CL 107 CO2 19* BUN 36* CR 2.29* GFR 27* GLU 141* CA 8.6 Intake/Output: Date 04/27/19700 - 04/28/19 0704/28/19700 - 04/29/19 07 Shift 2517-6280 8994-4948 24 Hour Total 1900-0700 24 Hour Total INTAKE P.O. 0152 386 1706 Shift Total(mL/kg) 1087(12.4) 200(2.3) 1287(14.6) OUTPUT Urine(mL/kg/hr) 1425(1.4) 700 2125 Urine 0 0 0 Urine Output (ml) (Ileal Conduit 08/10/16 1116 Right) 4656 001 8056 Drains 290 170 460 Drain Output (ml) (Kenn Collins Drain 04/24/19 1530 Anterior;Mid Abdomen #1) 290 170 460 Shift Total(mL/kg) 1715(19.5) 870(9.9) 2585(29.4) [facility] -628 -670 -1298 Weight (kg) 87.9 87.9 87.9 87.9 87.9 87.9 Stool Occurrence: 0 SH PAINTER * Ailyn Jacques RN - 04/27/2019 9:50 AM FINISH PAINTER 0950: Pt requesting RN ask primary team [...] to tele st atus and give labetalol. SH PAINTER * Phong Soto MD - 04/27/2019 6:45 AM FINISH PAINTER Urology Progress Note 04/27/2019 ASSESSMENT: Leonid Hamilton [...] Soto MD PGY-1 Urology Please page urology authorization specialist with questions SUBJECTIVE: Overnight events: No acute [...] 0700 04/27/19 0701 - 04/28/19 0700 Shift 2871-2768 3653-3109 24 Hour Total 9594-0182 7625-2531 24 Hour Total INTAKE P.O. 413 963 8357 Other 120 120 Shift Total(mL/kg) 960(10.9) 240(2.7) 1200(13.7) OUTPUT Urine(mL/kg/hr) 925(0.9) 975 1900 Urine 300 300 Urine Output (ml) (Ileal Conduit 08/10/16 1116 Right) 788 481 1972 Drains 220 90 310 Drain Output (ml) (Kenn Collins Drain 04/24/19 1530 Anterior;Mid Abdomen #1) 220 90 310 Shift Total(mL/kg) 1145(13) 1065(12.1) 2210(25.1) NET -275 -825 -1010 Weight (kg) 87.9 87.9 87.9 87.9 87.9 87.9 Stool Occurrence: 1 I have personally seen and examined the patient and agree with the resident's ph ysical exam and findings and agree with the plan of care. SH PAINTER * Narayan Rosario, RT - 04/27/2019 6:32 AM FINISH PAINTER RT Adult Assessment Note NAME:Leonid Hamilton Jr. [...] Lpm O2%: Breath Sounds: Respiratory Effort: Non-Labored SH PAINTER * Neri De Souza RN - 04/26/2019 2:04 PM FINISH PAINTER The patient states being in pain but [...] of pain medication has been presc ribed. SH PAINTER * Neri De Souza RN - 04/26/2019 1:00 PM FINISH PAINTER Pt was educated at the beginning of [...] own. The then continued to walk [facility] alone in the hallway with [...] will continue to educate throughout the day SH PAINTER * Lili Hooker RN - 04/26/2019 7:03 AM FINISH PAINTER I have reviewed the notes, assessment, and/or procedures performed by Sadia Valentin student and concur with her/his documentation unless otherwise noted. SH PAINTER * Megan Roe MD - 04/26/2019 5:38 AM FINISH PAINTER Urology Progress Note 04/26/2019 ASSESSMENT: Leonid Hamilton [...] Roe MD PGY-1 Urology Please page urology authorization specialist with questions SUBJECTIVE: Overnight events: No acute [...] 9.7 HGB 12.1* PLTCT 184 Recent Labs 04/25/19 0427 NA 136* K 5.1 CL 105 CO2 19* BUN 28* CR 2.64* GFR 23* GLU 174* CA 8.4* Intake/Output: Date 04/25/19700 - 04/26/19 0700 04/26/19 07 - 04/27/19 0700 Shift 0221-5314 8867-7404 24 Hour Total 6295-6436 1880-5079 24 Hour Total INTAKE P.O. 960 0 [...] Shift Total(mL/kg) 355(4) 910(10.4) 1265(14.4) NET 605 6818 6623 Weight (kg) 87.9 87.9 87.9 87.9 87.9 87.9 Stool Occurrence: 0 I have personally seen and examined the patient and agree with the resident's ph ysical exam and findings and agree with the plan of care. SH PAINTER * Leda Barrientos RN - 04/25/2019 7:01 PM FINISH PAINTER I have reviewed the notes, assessment, and/or procedures performed by Neri stubbs RN and concur with her/his documentation unless otherwise noted. SH PAINTER * Lili Hooker RN - 04/25/2019 7:00 AM FINISH PAINTER I have reviewed the notes, assessment, and/or procedures performed by Sadia benavides Hot Tamale Worker and concur with her documentation unless otherwise noted. SH PAINTER * Tasia Amaro MD - 04/25/2019 5:40 AM FINISH PAINTER Urology Progress Note 04/25/2019 ASSESSMENT: Leonid Hamilton [...] Roe MD PGY-1 Urology Please page urology authorization specialist with questions SUBJECTIVE: Overnight events: No acute [...] K 4.0 GLU 108* Intake/Output: Date 04/24/19 0701 - 04/25/19 0700 04/25/19 0701 - 04/26/19 0700 Shift 0212-3402 6279-5706 24 Hour Total 3482-5645 1277-6443 24 Hour Total INTAKE P.O. 50 0 [...] and agree with the plan of care. SH PAINTER * Jessica Bear RT - 04/24/2019 10:32 PM FINISH PAINTER RT Adult Assessment Note NAME:Leonid Hamilton Jr. [...] Sounds: Clear (implies normal) Respiratory Effort: Non-Labored SH PAINTER * Kellie Sepulveda RN - 04/18/2019 11:27 AM FINISH PAINTER PAC phone triage completed with patient's for surgery on 04/24/[address] Suzy cheng. Medications, allergies and medical history reviewed [...] copy of instructio ns emailed to them SH PAINTER documented in this encounter H&P Notes * Denton Nguyen MD - 04/24/2019 11:37 AM FINISH PAINTER History and Physical Update Note Allergies: Bee [...] performed on 04/05/2019. Denton Nguyen MD 4504 SH PAINTER * Tasia Amaro MD - 04/05/2019 1:15 PM FINISH PAINTER Date of Service: 04/05/2019 Subjective: Leonid Hamilton Jr. is a 83 y.o. male. History of Present Illness 83-year-old white male with a history of bladder cancer status post radical cyst ectomy with ileal conduit July 2016 for pTis N0 MX urothelial cell carcinoma. He also had an incidentally discovered Cana 3+ 4P T3a prostate cancer. He retu [...] with results of CT and discuss ureteroscopy. SH PAINTER documented in this encounter Miscellaneous Notes * Care Plan - Ailyn Jacques RN - 04/27/2019 1:19 PM FINISH PAINTER Problem: Discharge Planning Goal: Participation in plan [...] bundle and high fall risk fady icy. SH PAINTER * Care Plan - Neri De Souza RN - 04/26/2019 3:49 PM FINISH PAINTER Problem: Discharge Planning Goal: Participation in plan [...] of Infection Control Procedures Outcome: Goal Ongoing SH PAINTER * Care Plan - Neri De Souza RN - 04/25/2019 5:40 PM FINISH PAINTER Problem: Discharge Planning Goal: Participation in plan of care 04/25/2019 174 by Neri De Souza RN Outcome: Goal Ongoing 04/25/2019 1350 by Neri De Souza RN Outcome: Goal Ongoing Goal: Knowledge regarding plan of care 04/25/2019 174 by Neri De Souza RN Outcome: Goal Ongoing 04/25/2019 1350 by Neri De Souza RN Outcome: Goal Ongoing Goal: Prepared for discharge 04/25/20191739 by Neri De Souza RN Outcome: Goal Ongoing 04/25/2019 1350 by Neri De Souza RN Outcome: Goal Ongoing Problem: Falls, High Risk of Goal: Absence of falls-Adult Patient 04/25/2019 174 by Neri De Souza RN Outcome: Goal Ongoing 04/25/2019 135 by Neri De Souza RN Outcome: Goal Ongoing Problem: VTE, Risk of Goal: Absence of venous thrombosis 04/25/20191739 by Neri De Souza RN Outcome: Goal Ongoing 04/25/2019 1350 by Neri De Souza RN Outcome: Goal Ongoing Problem: Pain Goal: Management of pain 04/25/20191739 by Neri De Souza RN Outcome: Goal Ongoing 04/25/2019 1350 by Neri De Souza RN Outcome: Goal Ongoing Goal: Knowledge of pain management 04/25/20191739 by Neri De Souza RN Outcome: Goal Ongoing 04/25/2019 1350 by Neri De Souza RN Outcome: Goal Ongoing Goal: Progress Toward Pain Management Goals 04/25/2019 174 by Neri De Souza RN Outcome: Goal Ongoing 04/25/2019 1350 by Neri De Souza RN Outcome: Goal Ongoing Problem: Infection, Risk of Goal: Absence of infection 04/25/20191739 by Neri De Souza RN Outcome: Goal Ongoing 04/25/2019 1350 by Neri De Souza RN Outcome: Goal Ongoing Goal: Knowledge of Infection Control Procedures 04/25/20191739 by Neri De Souza RN Outcome: Goal Ongoing 04/25/2019 1350 by Neri De Souza RN Outcome: Goal Ongoing SH PAINTER * Care Plan - Neri De Souza RN - 04/25/2019 1:50 PM FINISH PAINTER Problem: Discharge Planning Goal: Participation in plan [...] of Infection Control Procedures Outcome: Goal Ongoing SH PAINTER * Case Mgmt DC Plan - Julieta Shook - 04/25/2019 1:44 PM FINISH PAINTER Case Management Admission Assessment NAME:Leonid Hamilton Jr. [...] reach out as needed. Patient Address/Phone [address] [address] (home) Emergency Contact Extended Emergency Contact Information Primary Emergency Contact: Annamarie Hamilton [facility] Mobile Relation: Spouse Secondary Emergency Contact: DalilaGrace [facility] Mobile Relation: Daughter Healthcare Directive Healthcare Directive: Yes, patient has a healthcare directive Type of Healthcare Directive: Durable power of managing attorney for healthcare, [facility] re directive Location of Healthcare Directive: Patient does not have it with him/her Would patient like to fill out a (a new) Healthcare Directive?: N/A Psych Advance Directive (Psych unit only): No, patient does not have a Psych Adv ance Directive Transportation Does the patient need discharge transport arranged?: No Transportation Name, Phone and Availability #1: SpouseAnnamarie, Does the patient use Medicaid Transportation?: No [...] is able to af pastor. Pt uses [facility] in [place].) ? Source of Income Source Of Income: Other chcf income ? Financial Assistance Needed? None Psychosocial Needs ? Mental Health Mental Health History: No ? Substance Use History Substance Use History Screen: No ? Other None Current/Previous Services ? PCP Min Lindsey, , ? Pharmacy [id number] [place], [place] - [address] [facility] [address] ? Durable Medical Equipment Durable Medical Equipment [...] ago" Name of rehab location/group: [facility] in [place], [place] Would patient return for future services?: Yes OT: No PHP ARCHITECT: No ? Mcfp Facility/Chcf SNF: No NH: No ? Inpatient Rehab IPR: In the past When did patient receive care?: Several years ago Name of Facility: Facility in [place], [place] Would patient return for future services?: Yes ? [facility] LTACH: No ? Acute Hospital Stay Acute Hospital Stay: In the past Was patient's stay within the last 30 days?: No Julieta Shook LMSW P #: [phone] SH PAINTER * Anesthesia Post Op Day 1 - Yoli Nieto CRNA - 04/25/2019 9:03 AM FINISH PAINTER Anesthesia Follow-Up Evaluation: Post-Procedure Day One Name: Leonid Hamilton JrMateo : 1935 Age: 83 y.o. Sex: male [...] 88 (04/24 1999) Height: 165.1 cm (65") (01/29 1041) Patient History Allergies Allergies Allergen Reactions Bee [...] 5,000 Units, Subcutaneous, Q8H INHALATIONAL SPACING DEVICE MISC SPCR (Cabinet Override), , , NOW levothyroxine [...] patent Respiratory Status: acceptable Cardiovascular Status:acceptable Regional/Neuroaxial: SH PAINTER * Care Plan - Lili Hooker RN - 04/25/2019 12:42 AM FINISH PAINTER Problem: Discharge Planning Goal: Participation in plan of care Outcome: Goal Ongoing Flowsheets (Taken 04/25/2019 004) Participation in Plan of Care: Involve patient/caregiver in care planning decisi on making Note: Pt involved in discharge planning and teaching and verbalizes understanding. Pt questions and concerns addressed regarding discharge Goal: Knowledge regarding plan of care Outcome: Goal Ongoing Flowsheets (Taken 04/25/2019 004) Knowledge regarding plan of care: Provide admission education to parent/caregive r; Provide infection prevention education; Provide plan of care education; Provi de medication management education; Provide procedural and treatment education; Provide VTE signs and symptoms education; Provide fall prevention education; Pro vide pre-operative teaching Goal: Prepared for discharge Outcome: Goal Ongoing Flowsheets (Taken 04/25/2019 004) Prepared for discharge: Collaborate with multidisciplinary team [...] Proper pharmacologic preventions and treatments in pl pauline to prevent/treat infection. Pt educated on treatments being given. Goal: Knowledge of Infection Control Procedures Outcome: Goal Ongoing Flowsheets (Taken 04/25/2019 0041) Knowledge of Infection Control procedures: Provide Isolation Precautions Educati on SH PAINTER * Operative Report (Direct Entry) - Tasia Amaro MD - 04/24/2019 12:47 PM FINISH PAINTER OPERATIVE REPORT Name: Leonid Hamilton Jr. is [...] DISTAL URETER #4 Tissue Ureter,Left SURGICAL PATHOLOGY HolTasia rodríguez MD 04/24/2019 1454 9 : LEFT DISTAL URETER #4 Tissue Ureter,Left SURGICAL PATHOLOGY Tasia Stephens MD 04/24/2019 1455 10 : LEFT KIDNEY AND URETER Tissue Kidney, Left SURGICAL PATHOLOGY Tasia Morales MD 04/24/2019 1550 Denton Nguyen MD 9364 ATTESTATION I performed this procedure with a resident. Staff name: Tasia Amaro MD Date: 04/25/2019 SH PAINTER documented in this encounter Plan of Treatment Date/Time Name Type Priority Associated Diag noses 04/24/2019 11:30 AM FINISH PAINTER POC ANES US GUIDED NERVE Imaging Routine BLOCK 04/24/2019 11:40 AM FINISH PAINTER POC ANES US GUIDED NERVE Imaging Routine BLOCK 04/24/2019 1:00 PM FINISH PAINTER IONIZED CALCIUM,BG Lab STAT Order Schedule Name [...] nosis HC CBC,AUTOMATED Routine 04/30/2019 3:40 AM FINISH PAINTER HC BASIC METABOLIC PANEL Routine 04/30/2019 3:40 AM FINISH PAINTER CONSULT IV THERAPY TEAM Routine 04/28/2019 10:01 PM FINISH PAINTER ABDOMEN AP ONLY SHAHIDA 04/28/2019 12:21 PM FINISH PAINTER ABDOMEN AP ONLY Routine 04/28/2019 10:09 AM FINISH PAINTER HC CBC,AUTOMATED Routine 04/28/2019 4:21 AM FINISH PAINTER HC BASIC METABOLIC PANEL Routine 04/28/2019 4:21 AM FINISH PAINTER HC HEPATITIS C REINA Add on 04/27/2019 12:35 PM FINISH PAINTER HC HEPATITIS B-S ANTIGEN Add on 04/27/2019 12:35 PM FINISH PAINTER BASIC METABOLIC PANEL STAT 04/27/2019 11:40 AM FINISH PAINTER HC HIVI&2 SINGLE ASSAY Add on 04/27/2019 4:58 AM FINISH PAINTER HC CBC,AUTOMATED Routine 04/27/2019 4:58 AM FINISH PAINTER HC BASIC METABOLIC PANEL Routine 04/27/2019 4:58 AM FINISH PAINTER ABDOMEN AP ONLY SHAHIDA 04/26/2019 7:37 AM FINISH PAINTER HC CBC,AUTOMATED Routine 04/26/2019 5:33 AM FINISH PAINTER HC BASIC METABOLIC PANEL Routine 04/26/2019 5:33 AM FINISH PAINTER HC CBC,AUTOMATED Routine 04/25/2019 4:27 AM FINISH PAINTER HC BASIC METABOLIC PANEL Routine 04/25/2019 4:27 AM FINISH PAINTER HC GLUCOSE,BG STAT 04/24/2019 1:00 PM FINISH PAINTER HC SODIUM,BG STAT 04/24/2019 1:00 PM FINISH PAINTER HC POTASSIUM, BG STAT 04/24/2019 1:00 PM FINISH PAINTER HC HEMOGLOBIN (BG) STAT 04/24/2019 1:00 PM FINISH PAINTER HC BLOOD STAT 04/24/2019 GASES;(CALCULATED 02) 1:00 PM FINISH PAINTER HC FROZEN SECTION #1 Routine 04/24/2019 Malignant neoplasm of 12:59 PM FINISH PAINTER left ureter (HCC) URETEROPLASTY 04/24/2019 Malignant neoplasm of 12:19 PM FINISH PAINTER left ureter (HCC) HC CBC,AUTOMATED STAT 04/24/2019 10:59 AM FINISH PAINTER HC ABO GROUP STAT 04/24/2019 10:59 AM FINISH PAINTER TELEMETRY STRIPS-SCAN 04/24/2019 12:00 AM FINISH PAINTER documented in this encounter Results * CBC (04/30/2019 3:40 AM FINISH PAINTER) White Blood 3.5 (L) 4.5 - 11.0 [...] MAIN LAB Specimen Blood Performing Organization Address City/State/[facility] Number [facility] [address] [place] [address] * BASIC METABOLIC PANEL (04/30/2019 3:40 AM FINISH PAINTER) Pathologist [facility] Sodium 141 137 - 147 MMOL/L [facility] [...] (L) >60 mL/min [facility] Comment: Gambian The eGFR is not validated f or use in drug dosing adjustments. Continue to use estimated creatinine clearance per dosing reference text. Please contact the Clinical Pharmacist for questions. eGFR 38 (L) >60 mL/min [facility] Gambian Comment: The eGFR is not validated for use in drug dosing adjustments. Continue to use estimated creatinine clearance per dosing reference text. Please contact the Clinical Pharmacist for questions. Specimen Blood Performing Organization Address City/State/Zipcode Ph one Number [facility] [address] [place] [address] * ABDOMEN AP ONLY (04/28/2019 12:21 PM FINISH PAINTER) Specimen Impressions Performed At Satisfactory placement of [...] Interface, Radiant Results - 04/29/2019 7:26 AM FINISH PAINTER Procedure: ABDOMEN AP ONLY Clinical Indication: Nasogastric [...] on 04/29/2019 7:02 AM. Performing Organization Address City/[facility] Ph one Number [facility] RAD RESULTS * ABDOMEN AP ONLY (04/28/2019 10:09 AM FINISH PAINTER) Specimen Impressions Performed At Right lower quadrant [...] Interface, Radiant Results - 04/28/2019 11:19 AM FINISH PAINTER ABDOMEN AP ONLY INDICATION: Nausea, vomiting post-op. [...] RAD RESULTS * CBC (04/28/2019 4:21 AM FINISH PAINTER) White Blood 6.4 4.5 - 11.0 K/UL [facility] Cells RBC 4.17 (L) 4.4 - 5.5 M/UL [facility] Hemoglobin 13.0 (L) 13.5 - 16.5 GM/DL [facility] Hematocrit 37.5 (L) 40 - 50 % [facility] MCV 89.9 80 - 100 FL [facility] MCH 31.2 26 - 34 PG [facility] MCHC 34.7 32.0 - 36.0 G/DL MAIN LAB RDW 16.8 (H) 11 - 15 % [facility] Platelet Count 241 150 - 400 K/UL MAIN LAB MPV 7.4 7 - 11 FL [facility] Specimen Blood Performing Organization Address [facility] one Number MAIN LAB [address] [place] [address] * BASIC METABOLIC PANEL (04/28/2019 4:21 AM FINISH PAINTER) Sodium 138 137 - 147 MMOL/L [facility] [...] 27 (L) >60 mL/min MAIN LAB Comment: [place]ian The eGFR is not validated f or use in drug dosing adjustments. Continue to use estimated creatinine clearance per dosing reference text. Please contact the Clinical Pharmacist for questions. eGFR 33 (L) >60 mL/min MAIN LAB Gambian Comment: The eGFR is not validated for use in drug dosing adjustments. Continue to use estimated creatinine clearance per dosing reference text. Please contact the Clinical Pharmacist for questions. Specimen Blood Performing Organization Address [facility] Ph one Number MAIN LAB [address] [phone] * HEPATITIS C AB (04/27/2019 12:35 PM FINISH PAINTER) Anti HCV NEG NEG-NEG MAIN LAB Specimen Performing Organization Address [facility] Ph one Number MAIN LAB [address] [place] [phone] * HEPATITIS B SURFACE AG (04/27/2019 12:35 PM FINISH PAINTER) HBsAg NEG NEG-NEG MAIN LAB Specimen Performing Organization Address City/[facility] Ph [facility] Number MA[facility] LAB [address] [place] [address] * BASIC METABOLIC PANEL (04/27/2019 11:40 AM FINISH PAINTER) Sodium 136 (L) 137 - 147 MMOL/L [facility] Potassium 4.4 3.5 - 5.1 MMOL/L [facility] Chloride 107 98 - 110 MMOL/L MAIN LAB CO2 17 (L) 21 - 30 MMOL/L [facility] Anion Gap 12 3 - 12 [facility] Glucose 194 (H) 70 - 100 MG/DL [facility] Blood Urea 31 (H) 7 - 25 MG/DL MAIN LAB Nitrogen Creatinine 2.47 (H) 0.4 - 1.24 MG/DL [facility] Calcium 8.7 8.5 - 10.6 MG/DL MAIN LAB eGFR Non 25 (L) >60 mL/min MAIN LAB Comment: [place]ian The eGFR is not validated f or use in drug dosing adjustments. Continue to use estimated creatinine clearance per dosing reference text. Please contact the Clinical Pharmacist for questions. eGFR 30 (L) >60 mL/min MAIN LAB Gambian Comment: The eGFR is not validated for use in drug dosing adjustments. Continue to use estimated creatinine clearance per dosing reference text. Please contact the Clinical Pharmacist for questions. Specimen Blood Performing Organization Address [facility] Ph one Number MAIN LAB [address] [place] [address] * HIV, STAT (04/27/2019 4:58 AM FINISH PAINTER) HIV I/II, Rapid TEST ORDERED UNDER WRONG [facility] ENCOUNTER, TO BE REORDERED CORRECTLY AND MODIFIED/KS/1357 Corrected on 04/29 AT 1358: previously reported as NEG Specimen Performing Organization Address [facility] Ph one Number MAIN LAB [address] [place] [address] * BASIC METABOLIC PANEL (04/27/2019 4:58 AM FINISH PAINTER) Sodium 138 137 - 147 MMOL/L MAIN LAB Potassium 5.2 (H) 3.5 - 5.1 MMOL/L [facility] Chloride 109 98 - 110 MMOL/L [facility] CO2 18 (L) 21 - 30 MMOL/L [facility] Anion Gap 11 3 - 12 [facility] Glucose 129 (H) 70 - 100 MG/DL MAIN LAB Blood Urea 31 (H) 7 - 25 MG/DL [facility] Nitrogen Creatinine 2.52 (H) 0.4 - 1.24 MG/DL [facility] Calcium 8.8 8.5 - 10.6 MG/DL MAIN LAB eGFR Non 25 (L) >60 mL/min MAIN LAB Comment: [place]ian The eGFR is not validated f or use in drug dosing adjustments. Continue to use estimated creatinine clearance per dosing reference text. Please contact the Clinical Pharmacist for questions. eGFR 30 (L) >60 mL/min [facility] Gambian Comment: The eGFR is not validated for use in drug dosing adjustments. Continue to use estimated creatinine clearance per dosing reference text. Please contact the Clinical Pharmacist for questions. Specimen Blood Performing Organization Address City/[facility] Ph one Number MAIN LAB [address] [place] [address] * CBC (04/27/2019 4:58 AM FINISH PAINTER) White Blood 8.9 4.5 - 11.0 K/UL [facility] Cells RBC 3.92 (L) 4.4 - 5.5 M/UL MAIN LAB Hemoglobin 11.9 (L) 13.5 - 16.5 GM/DL [facility] Hematocrit 34.4 (L) 40 - 50 % [facility] MCV 87.7 80 - 100 FL MAIN LAB MCH 30.4 26 - 34 PG MAIN LAB MCHC 34.7 32.0 - 36.0 G/DL MAIN LAB RDW 17.3 (H) 11 - 15 % [facility] Platelet Count 204 150 - 400 K/UL MAIN LAB MPV 7.9 7 - 11 FL MAIN LAB Specimen Blood Performing Organization Address City/[facility] Ph one Number MA[facility] LAB [address] [place] [address] * ABDOMEN AP ONLY (04/26/2019 7:37 AM FINISH PAINTER) Specimen Impressions Performed At Distention of multiple [...] Interface, Radiant Results - 04/26/2019 8:37 AM FINISH PAINTER distended abdomen, r/o large stomach bubble, ileus. [...] M.D. on 04/26/2019 8:34 AM. Dictated by sEvin Faria M.D. on 04/26/2019 8:31 AM. Performing Organization Address City/State/[facility] Ph [facility] Number [facility] RES[facility] * BASIC METABOLIC PANEL (04/26/2019 5:33 AM FINISH PAINTER) Pathologist [facility] Sodium 137 137 - 147 MMOL/L KU [...] LAB eGFR Non 22 (L) >60 mL/min [facility] Comment: [place]ian The eGFR is not validated f or use in drug dosing adjustments. Continue to use estimated creatinine clearance per dosing reference text. Please contact the Clinical Pharmacist for questions. eGFR 27 (L) >60 mL/min [facility] Gambian Comment: The eGFR is not validated for use in drug dosing adjustments. Continue to use estimated creatinine clearance per dosing reference text. Please contact the Clinical Pharmacist for questions. Specimen Blood Performing Organization Address City/[facility] Ph one Number MAIN LAB [address] [place] [address] * CBC (04/26/2019 5:33 AM FINISH PAINTER) [facility] White Blood 7.6 4.5 - 11.0 K/UL [...] 15 % [facility] Platelet Count 182 150 - 400 K/UL MAIN LAB MPV 7.6 7 - 11 FL MAIN LAB Specimen Blood Performing Organization Address City/[facility] one Number MAIN LAB [address] [place] [address] * BASIC METABOLIC PANEL (04/25/2019 4:27 AM FINISH PAINTER) [facility] Sodium 136 (L) 137 - 147 MMOL/L MAIN LAB Potassium 5.1 3.5 - 5.1 MMOL/L MAIN LAB Chloride 105 98 - 110 MMOL/L MAIN LAB CO2 19 (L) 21 - 30 MMOL/L [facility] Anion Gap 12 3 - 12 [facility] Glucose 174 (H) 70 - 100 MG/DL [facility] Blood Urea 28 (H) 7 - 25 MG/DL [facility] Nitrogen Creatinine 2.64 (H) 0.4 - 1.24 MG/DL [facility] Calcium 8.4 (L) 8.5 - 10.6 MG/DL MAIN LAB eGFR Non 23 (L) >60 mL/min MAIN LAB Comment: [place]ian The eGFR is not validated f or use in drug dosing adjustments. Continue to use estimated creatinine clearance per dosing reference text. Please contact the Clinical Pharmacist for questions. eGFR 28 (L) >60 mL/min MAIN LAB Gambian Comment: The eGFR is not validated for use in drug dosing adjustments. Continue to use estimated creatinine clearance per dosing reference text. Please contact the Clinical Pharmacist for questions. Specimen Blood Performing Organization Address City/[facility] Ph one Number MAIN LAB [address] [place] [address] * CBC (04/25/2019 4:27 AM FINISH PAINTER) [facility] White Blood 9.7 4.5 - 11.0 K/UL MAIN LAB Cells RBC 3.91 (L) 4.4 - 5.5 M/UL [facility] LAB Hemoglobin 12.1 (L) 13.5 - 16.5 GM/DL MAIN LAB Hematocrit 34.6 (L) 40 - 50 % MAIN LAB MCV 88.6 80 - 100 FL MAIN LAB MCH 31.0 26 - 34 PG MAIN LAB MCHC 35.0 32.0 - 36.0 G/DL [facility] LAB RDW 16.6 (H) 11 - 15 % MAIN LAB Platelet Count 184 150 - 400 K/UL MAIN LAB MPV 7.4 7 - 11 FL MAIN LAB Specimen Blood Performing Organization Address City/[facility] Ph one Number [facility] LAB [address] [place] [address] * POTASSIUM, BG (04/24/2019 1:00 PM FINISH PAINTER) Potassium 4.0 3.5 - 5.1 MMOL/L MAIN LAB Specimen Blood Performing Organization Address [facility] Ph one Number MAIN LAB [address] [place] [address] * SODIUM,BG (04/24/2019 1:00 PM FINISH PAINTER) Sodium 137 137 - 147 MMOL/L MAIN LAB Specimen Blood Performing Organization Address [facility] Ph one Number MAIN LAB [address] [place] [address] * GLUCOSE,BG (04/24/2019 1:00 PM FINISH PAINTER) Glucose 108 (H) 70 - 100 MG/DL MAIN LAB Specimen Blood Performing Organization Address [facility] Ph one Number MAIN LAB [address] [place] [address] * BLOOD GASES, ARTERIAL (04/24/2019 1:00 PM FINISH PAINTER) pH-Arterial 7.39 7.35 - 7.45 MAIN LAB pCO2-Arterial 41 35 - 45 MMHG MAIN LAB pO2-Arterial 351 (H) 80 - 100 MMHG [facility] Base 0.3 MMOL/L MAIN LAB Deficit-Arteria l O2 Sat-Arterial 99.9 (H) 95 - 99 % MAIN LAB Bicarbonate-ART 24.2 21 - 28 MMOL/L MAIN LAB -Asim Specimen Blood, arterial - Blood Performing Organization Address [facility] Ph one Number MAIN LAB [address] [place] [address] * HEMOGLOBIN & HEMATOCRIT, BG (04/24/2019 1:00 PM FINISH PAINTER) Hemoglobin BG 13.0 (L) 13.5 - 16.5 GM/DL MAIN LAB Hematocrit BG 39.9 (L) 40 - 50 % MAIN LAB Specimen Blood Performing Organization Address [facility] one Number MAIN LAB [address] [place] [address] * SURGICAL PATHOLOGY (04/24/2019 12:59 PM FINISH PAINTER) PATHOLOGY [facility] [email or web address] Department of Pathology and Laboratory Medicine [address] [place] [address] Surgical Pathology Office: [phone] SURGICAL PATHOLOGY REPORT NAME: LEONID HAMILTON SURG PATH #: [id number] MR #: [id number] SPECIMEN CLASS: SR BILLING #: [id number] ALT ID #: LOCATION: [facility] DATE OF PROCEDURE: 04/24/2019 AGE: 83 [...] pathologic alterations None identified Pursuant to the Internet Site Designer Program at the [facility] Pathology Department, selected slides from this [...] the remnant being placed in cassette H1FS. (nidhi) I. Received in formalin, labeled with the [...] submitted to Biospecimen Repository Core Facility: No System Development Manager sections of the specimen are submitted as follows: J1 System Development Manager section of hemorrhagic cortical cyst. J2 System Development Manager sections of smaller cortical cyst. J3-J4 System Development Manager sections of larger cortical cyst. J5 Entire ureteropelvic junction perpendicular sections. J6-J8 System Development Manager sections of renal sinus fat. J9-J11 Entire renal pelvis. J12 Unremarkable renal parenchyma. J13-J19 Entire ureter serially and sequentially from distal to proximal ([id number] resection margin). J20 Vascular resection margins. J21 System Development Manager hilar adipose tissue. (dlk) ky/04/24/2019 Intraoperative Consultation: A1FS, ureter, "left distal ureter", [...] Tissue - Kidney, Left Performing Organization Address City/[facility] Ph one Number [facility] [address] [place] [address] * CBC (04/24/2019 10:59 AM FINISH PAINTER) White Blood 6.7 4.5 - 11.0 K/UL [...] MAIN LAB Specimen Blood Performing Organization Address [facility] Ph one Number [facility] [address] [place] [address] * TYPE & CROSSMATCH (04/24/2019 10:59 AM FINISH PAINTER) Units Ordered 4 [facility] Crossmatch 04/27/2019 [facility] Expires Record Check FOUND [facility] ABO/RH(D) O POS [facility] Antibody Screen NEG [facility] Electronic YES [facility] Crossmatch Unit Number [id number] [facility] Blood Component RBC,ADSOL,LEUKO REDUCED,1ST [facility] AB Type CONT. Unit Division 0 [facility] Status OF Unit REL FROM ALLOC [facility] Transfusion OK TO TRANSFUSE [facility] Status Crossmatch COMPATIBLE,ELECTRONIC [facility] Result Unit Number [id number] [facility] Blood Component RBC,ADSOL,LEUKO REDUCED [facility] Type Unit Division 0 [facility] Status OF Unit REL FROM ALLOC [facility] Transfusion OK TO TRANSFUSE [facility] Status Crossmatch COMPATIBLE,ELECTRONIC [facility] Result Specimen Blood Performing Organization Address City/State/Zipcode Ph one Number [facility] [address] [place] [address] * TELEMETRY STRIPS-SCAN (04/24/2019 12:00 AM FINISH PAINTER) Narrative Performed At This result has an attachment that is n ot available. Ordered by an unspecified provider. 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 documented in this encounter Administered Medications Action Date Dose Rate Site Medication Order MAR Action 04/30/2019 9:45 AM FINISH PAINTER 650 mg acetaminophen (TYLENOL) tablet 650 mg Given 650 mg, Oral, EVERY 6 HOURS PRN, Starting Mon04/26/19 at 1651, Until Mon04/30/19 at 1204, Pain non-opioid: may be used alone or in combination with opioi d analgesia, TOTAL ACETAMINOPHEN DOSE NOT TO EXCEED 4GM DAILY, 04/27/2019 6:18 AM FINISH PAINTER 2 puffs albuterol sulfate (PROAIR HFA) inhaler 2 Given puff 2 puff, Inhalation, RT EVERY 4 HOURS PRN, Starting Mon04/24/19 at 1630, Unti l Mon04/30/19 at 1204, RT PROTOCOL, When administered by RT, will be per RT policy., 04/29/2019 9:03 PM FINISH PAINTER 10 mg bisacodyL (DULCOLAX) rectal suppository Given 10 mg 10 mg, Rectal, TWICE DAILY, First dose on Emily 04/25/19 at 0900, Until Discontinued, Hold for loose stools, 10 mg Given 04/29/2019 12:36 PM FINISH PAINTER 10 mg Given 04/28/2019 9:28 PM FINISH PAINTER 04/30/2019 6:12 AM FINISH PAINTER 2 puffs budesonide/formoterol (SYMBICORT HFA) Given 80-4.5 mcg/actuation inhalation 2 puff 2 puff, Inhalation, TWICE DAILY, First dose (after last modification) on Emily 04/25/19 at 0615, Until Discontinued, When administered by RT, will be per RT policy., 2 puffs Given 04/29/2019 5:35 PM FINISH PAINTER 2 puffs Given 04/29/2019 5:54 AM FINISH PAINTER 04/30/2019 8:54 AM FINISH PAINTER 90 mg dilTIAZem HCL (cardIZEM) tablet 90 mg Given 90 mg, Oral, EVERY MORNING, First dose (after last modification) on Mon04/30/19 at 0800, Until Discontinued 04/30/2019 6:12 AM FINISH PAINTER 5,000 Units Abdomina l Tissue heparin (porcine) PF syringe 5,000 Units Given 5,000 Units, Subcutaneous, EVERY 8 HOURS, First dose on Mon04/24/19 at 2200, Until Discontinued, NOTE: This is a HIGH ALERT Medication., 5,000 Units Abdominal Tissue Given 04/29/2019 9:03 PM FINISH PAINTER 5,000 Units Abdominal Tissue Given 04/29/2019 3:46 PM FINISH PAINTER 04/27/2019 11:43 AM FINISH PAINTER 10 mg labetalol (NORMODYNE) injection 10 mg Given 10 mg, Intravenous, EVERY 4 HOURS PRN, Starting Mon04/26/19 at 2232, Until Mon04/30/19 at 1204, Blood Pressure..., Systolic Blood Pressure..., >165 systolic, Hold for heart rate < 60 bpm, 10 mg Given 04/26/2019 10:40 PM FINISH PAINTER 04/30/2019 6:12 AM FINISH PAINTER 50 mcg levothyroxine (SYNTHROID) tablet 50 mcg Given 50 mcg, Oral, DAILY, First dose (after last modification) on Mon04/30/19 at 0600, Until Discontinued, Give 1 hour before a meal. If patient is receiving tube feedings, hold tube feed 1hr befor e and 1hr after dose., methocarbamol (ROBAXIN) tablet 500 mg 500 mg, Oral, EVERY 8 HOURS PRN, Starting Mon04/29/19 at 1733, Until Mon04/30/19 at 1204, Spasms 04/30/2019 6:12 AM FINISH PAINTER 5 mg metoclopramide (REGLAN) tablet 5 mg Given 5 mg, Oral, BEFORE MEALS AND AT BEDTIME , First dose (after last modification) on Mon04/29/19 at 2100, Until Discontinued 5 mg Given 04/29/2019 9:03 PM FINISH PAINTER 04/29/2019 2:43 PM FINISH PAINTER 200 mL milk/molasses(#) 1:1 rectal enema 200 mL Given 200 mL (1 each), Rectal, TWICE DAILY, First dose on Mon04/26/19 at 0900, Unti l Discontinued 200 mL Given 04/28/2019 9:40 PM FINISH PAINTER 200 mL Given 04/28/2019 9:30 AM FINISH PAINTER 04/26/2019 10:02 PM FINISH PAINTER 4 mg ondansetron (ZOFRAN) injection 4 mg Given 4 mg, Intravenous, EVERY 4 HOURS PRN, Starting Mon04/24/19 at 2049, Until Mon04/30/19 at 1204, Nausea/Vomiting Injectable 4 mg Given 04/25/2019 1:38 AM FINISH PAINTER 04/29/2019 9:58 AM FINISH PAINTER 17 g polyethylene glycol 3350 (MIRALAX) Given packet 17 g 17 g (1 packet), Oral, TWICE DAILY, First dose on Mon04/24/19 at 2100, Unti l Discontinued, 8.5 GRAMS = 0.5 PACKET 17 GRAMS = 1 PACKET 34 GRAMS = 2 PACKETS, 17 g Given 04/28/2019 9:39 PM FINISH PAINTER 17 g Given 04/28/2019 9:36 AM FINISH PAINTER 04/30/2019 8:54 AM FINISH PAINTER 0.25 mg pramipexole (MIRAPEX) tablet 0.25 mg Given 0.25 mg, Oral, TWICE DAILY, First dose on Mon04/24/19 at 2100, Until Discontinued 0.25 mg Given 04/29/2019 9:04 PM FINISH PAINTER 0.25 mg Given 04/29/2019 10:13 AM FINISH PAINTER 04/29/2019 9:03 PM FINISH PAINTER 1 tablet senna/docusate (SENOKOT-S) tablet 1 Given tablet 1 tablet, Oral, TWICE DAILY, First dose on Mon04/24/19 at 2100, Until Discontinued, Hold for loose stools, 1 tablet Given 04/29/2019 9:58 AM FINISH PAINTER 1 tablet Given 04/28/2019 9:39 PM FINISH PAINTER sodium chloride 0.9 % infusion 1,000 mL, 1,000 mL, Intravenous, at 50 mL/hr, CONTINUOUS, Starting Mon04/30/19 at 0615, Until Mon04/30/19 at 1204 04/29/2019 10:09 PM FINISH PAINTER 60 mg temazepam (RESTORIL) capsule 60 mg Given 60 mg, Oral, AT BEDTIME DAILY, First dose (after last modification) on Mon04/29/19 at 2100, Until Discontinued 04/30/2019 9:45 AM FINISH PAINTER 50 mg traMADol (ULTRAM) tablet 50 mg Given 50 mg, Oral, EVERY 6 HOURS PRN, Starting Mon04/29/19 at 1733, Until Mon04/30/19 at 1204, Pain PO documented in this encounter
--- OUTSIDE RECORDS SUMMARY | 2019-05-20 17:01 | XMS REPORT | Encounter Summary ---
Author Author [facility] Organization [facility] Address Unknown Phone Unavailable Care Team Providers Care Infection Control Rn Name Role Phone Cory Amaro MD Unavailable [phone] Min Lindsey MD PCP Karen Aguirre RN Unavailable Unavailable Alfredo Everett MD Unavailable Jazmine Germain RN Unavailable Unavailable Kit Tian MD Unavailable Dinorah Khan RN Unavailable Unavailable Encounter Details Care Team Description Date Type Department Flores Shin MD [id number] [place] [address] 04/24/2019 [facility] [address] [facility] [address] [place] [address] Social History Date Tobacco Use Types Packs/Day [...] impairment: No documented as of this encounter Medications at Time [...] or Vomiting. not taking 08/17/2016 [facility] 10 Units 10 Each 99 as [...] taking the day prior to stent removal. 04/30/2019 lisinopril (ZESTRIL) 5 mg Take 2.5 mg 0 tablet by mouth at bedtime daily. 04/30/2019 meloxicam (MOBIC) 15 mg Take 15 mg by 0 tablet mouth daily. 08/17/2016 04/25/2019 milk of magnesia (CONC) Take 10 mL by 360 mL 1 2,400 mg/10 mL oral mouth twice suspensionIndications: daily as constipation needed. Indications: CONSTIPATION documented as of this encounter Plan of Treatment Date/Time Name Type Priority Associated Diag noses 04/24/2019 11:40 AM PAPERBOARD BOX MAKER POC ANES US GUIDED NERVE Imaging Routine BLOCK documented as of this encounter Goals Goal Patient Associated Recent Progress Patient-Stat Aut hor Goal Type Problems ed? 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, gate operator Recover from illness Hospital Yes Patrick Angel, RN Note: "To heal and recover and get back to normal" documented as of this encounter Visit Diagnoses Not on filedocumented in this encounter
--- OUTSIDE RECORDS SUMMARY | 2019-05-20 17:01 | XMS REPORT | Encounter Summary ---
Author Author [facility] Organization [facility] Address Unknown Phone Unavailable Care Team Providers Care Manager Foreign Name Role Phone Cory Amaro MD Unavailable [phone] Min Lindsey MD PCP Karen Aguirre RN Unavailable Unavailable Alfredo Everett MD Unavailable Jazmine Germain RN Unavailable Unavailable Kit Tian MD Unavailable Dinorah Khan RN Unavailable Unavailable Encounter Details Care Team Description Date Type Department Flores Shin MD [id number] [place] [address] 04/24/2019 [facility] [address] [facility] [address] [place] [address] Social History Date Tobacco Use Types Packs/Day [...] or Vomiting. 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, web site designer Recover from illness Hospital Yes Patrick Angel, RN Note: "To heal and recover and get back to normal" documented as of this encounter Visit Diagnoses Not on filedocumented in this encounter
--- OUTSIDE RECORDS SUMMARY | 2019-05-20 17:02 | XMS REPORT | Encounter Summary ---
Author Author [facility] Organization [facility] Address Unknown Phone Unavailable Care Team Providers Care Wastewater Treatment Engineer Name Role Phone Cory Amaro MD Unavailable [phone] Min Lindsey MD PCP Karen Aguirre RN Unavailable Unavailable Alfredo Everett MD Unavailable Jazmine Germain RN Unavailable Unavailable Kit Tian MD Unavailable Dinorah Khan RN Unavailable Unavailable Reason for Visit * Auth/Cert Referred By Contact Referred To Contact Status Reason Specialty Diagnoses / Procedures Diagnoses Gross hematuria Gross hematuria [R31.0] P rocedures NV CYSTO/PYELOSCOPY BX&/FULGURATION PELIVC LESION NV CYSTO/PYELOSCOPY BX&/FULGURATION PELIVC LESION CYSTOURETHROSCOPY WITH URETEROSCOPY AND/ OR PYELOSCOPY - WITH BIOPSY AND/ OR FULGURATION URETERAL/ RENAL PELVIC LESION Encounter Details Care Team Description Date Type Department Kelsi Saldana MD [id number] [place], [place] [id number] Gardenia Escoto SRNA 04/11/2019 Anesthesia [facility] OR [address] [address] Anesthesia Record Responsible Anesthesiologist Anesthesia Start Time Anesthesi a Stop Time Procedure Name Kelsi Saldana MD 04/11/19 1609 04/11/19 1704 CYSTOURETHROSCOPY WITH URETEROSCOPY AND PYELOSCOPY - WITH BIOPSY (Left ) Date Time Event Comment 1531 AN Equip Check 2019 1540 1609 Anes Start 1609 An Start Data 1609 In Room 1615 An Induction The patient was ree valuated immediately before moderate or deep sedation use and before anesthesia induction. 1617 An Intubation 1620 Anesthesia Ready 1628 Antibiotic Given 1630 Proc Start 1658 An Extubation 1700 an stop data 1704 Handoff to RN I completed my SBAR handoff to the receiving nurse. 1704 An Stop Meds Name Total fentaNYL PF (SUBLIMAZE) injection 100 mcg lidocaine (2%) 200 mg/10mL Injection 100 mg syringe propofol (DIPRIVAN) 200 mg/ 20 mL 200 mg injection (VIAL) rocuronium (ZEMURON) injection 40 mg ondansetron (ZOFRAN) injection 4 mg dexamethasone (DECADRON) 4 mg/mL 4 mg injection sugammadex (BRIDION) 100 mg/mL iv soln 200 mg dextran 70/hypromellose (GENTEAL TEARS; 2 drop BION TEARS) ophthalmic solution sodium chloride 0.9 % infusion 0 mL * Name O2 N2O Inspired N2O Sevoflurane Inspired Sevoflurane * No blood administrations on file. Removal Type Details Placement Wounds 08/10/16; 1039; Perineum; Surgical 1039 by (NOT for Incision; PATIENT CLEANED AND DRIED. N O Tiffanie Waldron RN Pressure DRESSINGS. Injuries) Wounds 08/10/16; 1039; Abdomen; Surgical 07/25 10/10 1039 by (NOT for Incision; MIDLINE INCISION: SUTURES, Tiffanie Waldron RN Pressure MASTISOL, STERRI STRIPS, 4X 4s AND Injuries) TEGADERMDRAIN: DRAIN SITE A ND TEGADERMUROSTOMY: MASTISOL AND DRAINAGE BAG (7.0 FR. URETERAL STENTS DRAINING INTO DRAINAGE BAG) Ileal 08/10/16; 1116; Right 08/10/16 1116 by Conduit Tiffanie Waldron RN Wounds 04/11/19; 1648; Abdomen; Surgical 03/27 09/13 1648 by Ag, (NOT for Incision (UROSTOMY BAG) MARIAN Knutson Pressure Injuries) 04/11/19 1745 by Ladonna Fritz RN Peripheral 04/11/19; 1533; RN; R; Hand; 20 G; 2; 04/11/19 1533 by MINESH Gandhi 04/11/19; 1745 MARIAN Wolf 04/11/19 1658 by Marie Bernal CRNA ETT 04/11/19; 1617; Ventilated by mask with 04/11/19 1617 by Gabe oral airway (2) (2 hand mask); Direct NAWAF Salazar laryngoscopy, Stylet; Single-Lumen, Cuffed; 7.5mm; Mac; 3; Oral; 2a-Partial view of the glottis; 1 insertion attempt; Auscultation, ETCO2 Detector; 23 centimeters; atraumatic, dentition unchanged from preop assessment; 04/11/19; 1658 documented in this encounter Social History Date Tobacco Use Types Packs/Day [...] impairment: No documented as of this encounter OR Notes * Anesthesia Postprocedure Evaluation - Lucas Bain DO - 04/11/2019 7:48 PM MATERIAL INSPECTOR Post-Anesthesia Evaluation Name: Leonid Kennedy Jr. : 1935 Age: 83 y.o . Sex: male Procedure Date: 04/11/2019 Procedure(s) (LRB): CYSTOURETHROSCOPY WITH URETEROSCOPY AND PYELOSCOPY - WITH BIOPSY (Left) Surgeon: Surgeon(s): Cory Amaro MD Niu, MD Steve Post-Anesthesia Vitals Vitals Value Taken Time BP 126/107 04/11/2019 5:30 PM Temp Pulse 75 04/11/2019 5:30 PM Respirations 17 PER MINUTE 04/11/2019 5:30 PM SpO2 98 % 04/11/2019 5:30 PM Post Anesthesia Evaluation Note Evaluation location: Pre/Post Patient participation: recovered; patient participated in evaluation Level of consciousness: alert Pain score: 0 Pain management: adequate Hydration: normovolemia Temperature: 36.0C - 38.4C Airway patency: adequate Perioperative Events Post-op nausea and vomiting: no PONV Postoperative Status Cardiovascular status: hemodynamically stable Respiratory status: spontaneous ventilation Follow-up needed: none Perioperative Events Perioperative Event: No Emergency Case Activation: No RIAL INSPECTOR Associated attestation - Ernesto Triana MD - 04/12/2019 7:41 AM MATERIAL INSPECTOR Post-Anesthesia Evaluation Attestation: I reviewed and agree the indicated post- anesthesia care was provided. I have reviewed stevens portions of the indicated post anesthesia care. I have examined the patient's vitals, physical status, and com plications and agree with what is documented. Staff name: Ernesto Triana MD Date: 04/12/2019 * Anesthesia Preprocedure Evaluation - Kelsi Saldana MD - 04/11/2019 3:01 PM MATERIAL INSPECTOR Anesthesia Pre-Procedure Evaluation Name: Leonid Kennedy Jr. : 1935 Age: 83 y.o . Sex: male Cystoscopy ureteroscopy Physical Assessment Vital Signs (last filed in past 24 hours): Patient History Allergies Allergen Reactions Bee Venom Protein (Honey Bee) ANAPHYLAXIS Current Medications Medication Directions acetaminophen (TYLENOL) 325 mg tablet Take 2 Tabs by mouth every 6 hours as need ed. albuterol (PROAIR HFA, VENTOLIN HFA, OR PROVENTIL [...] 1 Cap by mout h twice daily. fluoxetine HCl (FLUOXETINE PO) Take [...] at bedtime daily. In dications: Leg Cramps meclizine (ANTIVERT) 12.5 mg tablet Take 12.5 mg by mouth three times daily as n eeded. milk of magnesia (CONC) 2,400 mg/10 mL [...] mouth every 6 hours as needed for P ain. Indications: PAIN traZODone (DESYREL) 150 mg tablet Take 300 mg by mouth at bedtime daily. vitamins, multiple cap Take 1 Cap by mouth daily. Medical History: Diagnosis Date Arthritis Bladder cancer [...] RETR OGRADE PYELOGRAMS N/A 09/15/2015 Performed by [facility] BLUE LIGHT CYSTOSCOPY, TRANSURETHRAL RESECTION OF BLADDER TUMOR, BILATERAL R ETROGRADE PYELOGRAMS N/A 07/07/2016 Performed by Cory [facility] MD [facility] RADICAL CYSTECTOMY WITH ILEAL CONDUIT AND BILATERAL PELVIC LYMPH NODE DISSEC TION. N/A 08/10/2016 Performed by [facility] COLONOSCOPY HX HEART CATHETERIZATION 12 heart caths-5 stents, most recent 2011 Social History Tobacco Use Smoking status: Former Smoker Packs/day: 1.50 Years: 20.00 Pack years: 30.00 Types: Cigarettes, Cigars Last attempt to quit: 03/27/1974 Years since quittin.0 Smokeless tobacco: Never Used Substance Use Topics Alcohol use: No Review of Systems/Medical History Patient summary reviewed Nursing notes reviewed Pertinent labs reviewed PONV Screening: Non-smoker History of anesthetic complications (prolonged awakening (asleep for 5 days foll owing knee surgery)) No family history of anesthetic complications Airway - negative Pulmonary Not a current smoker (quit 1974) No recent URI No sleep apnea Previous smoker Cardiovascular Recent diagnostic studies: echocardiogram and stress test EF = 60% Left ventricular hypertrophy with diastolic dysfunction. 2.Normal LV systolic function. 3.Aortic valve sclerosis with mild aortic insufficiency. 4.Mitral annular calcifications with mild mitral regurgitation and mild left atrial enlargement. 5.Mild tricuspid regurgitation with normal calculated RV systolic pressure. 6.Mild pulmonic insufficiency Exercise tolerance: >4 METS Beta Florencio therapy: No Beta blockers within 24 hours: No Hypertension, well controlled Past AL, > 6 months Coronary artery disease Coronary artery bypass graft (x1 in 1999) PTCA with stent placement: total of 6 stents, last stent Jan 2018 PVD (carotid stenosis) Hyperlipidemia Daily ASA Able to walk flat surface treadmill at cardiac rehab GI/Hepatic/Renal GERD, well controlled No chronic renal disease Neuro/Psych Hx TIA (possible per pt) Sensory deficit Psychiatric history Depression NEWHALEN bilateral (wears hearing aids) Musculoskeletal Back pain Arthritis (multi-joint OA) Endocrine/Other No diabetes Hypothyroidism (euthyroid on levothyroxine) Malignancy (bladder cancer s/p blue light ) Obesity Physical Exam Airway Findings Mallampati: II TM distance: >3 FB Neck ROM: full Mouth opening: good Airway patency: adequate Dental Findings: Upper dentures and lower dentures Comments: Pt is edentulous, dentures removed prior to OR Cardiovascular Findings: Rhythm: regular Rate: normal Other findings: peripheral edema (trace BLE) No murmur, no carotid bruit Pulmonary Findings: Negative Breath sounds clear to auscultation. Abdominal Findings: Obese Neurological Findings: Normal mental status Other Findings: Hard of hearing Diagnostic Tests Hematology: Lab Results Component Value Date HGB 14.3 10/19/2018 HCT 42.0 10/19/2018 PLTCT 202 10/19/2018 WBC 6.3 10/19/2018 NEUT 68 09/02/2016 ANC 3.10 09/02/2016 ALC 0.70 09/02/2016 DONA 9 09/02/2016 AMC 0.40 09/02/2016 EOSA 7 09/02/2016 ABC 0.00 09/02/2016 MCV 90.5 10/19/2018 MCH 30.8 10/19/2018 MCHC 34.1 10/19/2018 MPV 6.9 10/19/2018 RDW 15.9 10/19/2018 General Chemistry: Lab Results Component Value Date NA 139 04/05/2019 K 4.5 04/05/2019 CL 103 04/05/2019 CO2 28 04/05/2019 GAP 8 04/05/2019 BUN 21 04/05/2019 CR 1.3 04/05/2019 CR 1.24 04/05/2019 GLU 120 04/05/2019 CA 9.2 04/05/2019 ALBUMIN 3.8 09/02/2016 OBSCA 1.11 08/10/2016 MG 2.1 08/16/2016 TOTBILI 0.4 09/02/2016 PO4 2.4 08/16/2016 Coagulation: No results found for: PT, PTT, INR Stress 06/16/16(Care Everywhere) No evidence of myocardial infarction. No evidence of pharmacologically induced myocardial ischemia. Normal resting LV cavity size and normal wall Motion. EF 60% COMMENTS: Given these findings, there is a low likelihood of recurrent ischemic heart disease. Carotid doppler 06/13/16 (Care Everywhere) Right: Mild disease of 1-39% with mild velocities. Antegrade vertebral flow. Left: Mild disease of 1-39% with mild velocities. Antegrade vertebral flow. Essentially unchanged. Based on today's results, a one year follow up is recommended if patient remains asymptomatic. Anesthesia Plan ASA score: 3 Plan: general Induction method: intravenous NPO status: acceptable Informed Consent Anesthetic plan and risks discussed with patient. Use of blood products discussed with patient Plan discussed with: PERSONNEL COUNSELOR and anesthesiologist. RIAL INSPECTOR documented in this encounter Plan of Treatment Not on filedocumented as of this encounter Goals Goal Patient Associated Recent Progress Patient-Stat Aut hor Goal Type Problems ed? 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, web site admin Recover from illness Hospital Yes Patrick Angel, MARIAN Note: "To heal and recover and get back to normal" documented as of this encounter Visit Diagnoses Not on filedocumented in this encounter Administered Medications Action Date Dose Rate Site Medication Order MAR Action 04/11/2019 4:25 PM MATERIAL INSPECTOR 4 mg dexamethasone (DECADRON) injection Given Intravenous, INTRA-PROCEDURE MED, Starting Emily 04/11/19 at 1625, Until Emily 04/11/19 at 1706, Anesthesia Intra-op 04/11/2019 4:17 PM MATERIAL INSPECTOR 2 drops dextran 70/hypromellose (GENTEAL TEARS) Given ophthalmic solution INTRA-PROCEDURE MED, Starting Emily 04/11/19 at 1617, Until Emily 04/11/19 at 1706, Anesthesia Intra-op 04/11/2019 4:15 PM MATERIAL INSPECTOR 100 mcg fentaNYL citrate PF (SUBLIMAZE) Given injection INTRA-PROCEDURE MED, Starting Emily 04/11/19 at 1615, Until Emily 04/11/19 at 1706, Anesthesia Intra-op 04/11/2019 4:15 PM MATERIAL INSPECTOR 100 mg lidocaine (PF) injection Given INTRA-PROCEDURE MED, Starting Emily 04/11/19 at 1615, Until Emily 04/11/19 at 1706, Anesthesia Intra-op 04/11/2019 4:25 PM MATERIAL INSPECTOR 4 mg ondansetron (ZOFRAN) injection Given Intravenous, INTRA-PROCEDURE MED, Starting Emily 04/11/19 at 1625, Until Emily 04/11/19 at 1706, Anesthesia Intra-op 04/11/2019 4:47 PM MATERIAL INSPECTOR 50 mg propofol (DIPRIVAN) injection Given INTRA-PROCEDURE MED, Starting Emily 04/11/19 at 1615, Until Emily 04/11/19 at 1706, Anesthesia Intra-op 150 mg Given 04/11/2019 4:15 PM MATERIAL INSPECTOR 04/11/2019 4:15 PM MATERIAL INSPECTOR 40 mg rocuronium injection Given Intravenous, INTRA-PROCEDURE MED, Starting Emily 04/11/19 at 1615, Until Emily 04/11/19 at 1706, Anesthesia Intra-op 04/11/2019 4:52 PM MATERIAL INSPECTOR 200 mg sugammadex (BRIDION) injection Given Intravenous, INTRA-PROCEDURE MED, Starting Emily 04/11/19 at 1652, Until Emily 04/11/19 at 1706, Anesthesia Intra-op documented in this encounter
--- OUTSIDE RECORDS SUMMARY | 2019-05-20 17:02 | XMS REPORT | Encounter Summary ---
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, endless bed drum sander Recover from illness Hospital Yes Patrick Angel, RN Note: "To heal and recover and get back to normal" documented as of this encounter Visit Diagnoses Diagnosis Malignant neoplasm of left ureter (HCC) - Primary Malignant neoplasm of ureter documented in this encounter
--- OUTSIDE RECORDS SUMMARY | 2019-05-20 17:02 | XMS REPORT | Encounter Summary ---
Author Author [facility] Organization [facility] Address Unknown Phone Unavailable Care Team Providers Care Silk Top Hat Body Maker Name Role Phone Tasia Amaro MD Unavailable [phone] Min Lindsey MD PCP Karen Aguirre RN Unavailable Unavailable Alfredo Everett MD Unavailable Jazmine Germain RN Unavailable Unavailable Kit Tian MD Unavailable Dinorah Khan RN Unavailable Unavailable Reason for Visit * Auth/Cert Referred By Contact Referred To Contact Status Reason Specialty Diagnoses / Procedures Diagnoses Gross hematuria Gross hematuria [R31.0] P rocedures [place] CYSTO/PYELOSCOPY BX&/FULGURATION PELIVC LESION [place] CYSTO/PYELOSCOPY BX&/FULGURATION PELIVC LESION CYSTOURETHROSCOPY WITH URETEROSCOPY AND/ OR PYELOSCOPY - WITH BIOPSY AND/ OR FULGURATION URETERAL/ RENAL PELVIC LESION Encounter Details Care Team Description Date Type Department Tasia Amaro MD [address] [facility] [place] [address] Gross hematuria 04/11/2019 Hospital [facility] [place] [address] [address] Social History Date Tobacco Use [...] Signs Reading Time Taken Comments Vital Sign 126/107 04/11/2019 5:30 PM [employer]INGO CLE[employer]ER Blood Pressure 75 04/11/2019 5:30 PM [employer]INGO CLEANER Pulse 36.6 C (97.9 F) 04/11/2019 5:02 PM LINGO CLEANER Temperature - - Respiratory Rate 98% 04/11/2019 5:30 PM LINGO CLEANER Oxygen Saturation - - Inhaled Oxygen Concentration 86.2 kg (190 lb) 04/11/2019 3:12 PM [employer]INGO CLE[employer]ER Weight 167.6 cm (5' 6") 04/11/2019 3:12 PM LINGO CLEANER Height 30.67 04/11/2019 3:12 PM LINGO CLEANER Body Mass Index documented in this encounter [...] three times daily as needed. not taking omeprazole DR(+) Take 40 mg by 0 (PRILOSEC) 40 mg capsule mouth daily. ondansetron (ZOFRAN) 4 mg Take 4 mg by 0 tablet mouth every 8 hours as needed for Nausea or Vomiting. not taking 08/17/2016 Ostomy Supplies [facility] [place] Use 10 Units 10 Each 99 as [...] Take 1 Cap by 0 mouth daily. 04/18/2019 clopiDOGrel (PLAVIX) 75 Take 75 mg by 0 mg tablet mouth daily. 04/18/2019 fluoxetine HCl Take by 0 (FLUOXETINE PO) mouth. 04/18/2019 fluticasone (FLOVENT HFA) Inhale 2 0 110 mcg/actuation inhaler puffs by mouth into the lungs twice daily. 04/11/2019 04/18/2019 HYDROcodone/acetaminophen Take one 5 tablet 0 (NORCO) 5/325 mg tablet tablet by mouth every 8 hours as needed for Pain 04/11/2019 04/18/[address] one 30 tablet 1 (LEVSIN/SL) 0.125 mg tablet under sublingual tablet tongue every 4 hours as needed (bladder spasms). 04/30/2019 lisinopril (ZESTRIL) 5 mg Take 2.5 mg 0 tablet by mouth at bedtime daily. 08/17/2016 04/25/2019 milk of magnesia (CONC) Take 10 mL by 360 mL 1 2,400 mg/10 mL oral mouth twice suspensionIndications: daily as constipation needed. Indications: CONSTIPATION 04/18/2019 other medication Take 1 Dose 0 by mouth daily. Prevagen 04/18/2019 traZODone (DESYREL) 150 Take 300 mg 0 mg tablet by mouth at bedtime daily. documented as of this encounter H&P Notes * Tasia Amaro MD - 04/11/2019 3:22 PM [employer]INGO CLEANER History and Physical Update Note Allergies: Bee venom protein (honey bee) Lab/Radiology/Other Diagnostic Tests: 24-hour labs: No results found for this visit on 04/11/19 (from the past 24 aye r(s)). Point of Care Testing: (Last 24 hours): I have examined the patient, and there are no significant changes in their condi tion, from the previous H&P performed on 04/05/19.. Tasia Amaro MD Pager [phone] O CLEANER * Tasia Amaro MD - 04/05/2019 1:15 PM [employer]INGO CLEANER Date of Service: 04/05/2019 Subjective: Leonid Kennedy Jr. is a 83 y.o. male. History of Present Illness 83-year-old white male with a history of bladder cancer status post radical cyst ectomy with ileal conduit July 2016 for pTis N0 MX urothelial cell carcinoma. 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 He retu [...] with results of CT and discuss ureteroscopy. O CLEANER documented in this encounter Miscellaneous Notes * Operative Report (Direct Entry) - Tasia Amaro MD - 04/11/2019 3:31 PM LINGO CLEANER OPERATIVE REPORT Name: Leonid Kennedy Jr. is a 83 y.o. male : 1935 DATE OF OPERATION: 04/11/2019 Surgeon(s) and Role: * Tasia Amaro MD - Primary Preoperative Diagnosis: Gross hematuria [R31.0] Post-op Diagnosis * Gross hematuria [R31.0] Procedure(s) (LRB): CYSTOURETHROSCOPY WITH URETEROSCOPY AND/ OR PYELOSCOPY - WITH BIOPSY AND/ OR FUL GURATION URETERAL/ RENAL PELVIC LESION (Left) Anesthesia Type: General Description and Findings of Operative Procedure: The patient was identified and informed consent was obtained. The patient was brought back to the operating ro om and placed on the table in supine position. Bilateral lower extremity compre ssion devices were placed. The patient received IV antibiotics prior to the smoo th induction of anesthesia. A pre-operative safety time out and checklist was p erformed confirming the correct patient and planned procedure. The patient's gen itals were prepped and draped in the usual sterile fashion. A flexible cystoscope was inserted in the patient's urethra and advanced towards the ileal conduit. Systematic inspection of the ileal conduit revealed no mass es, stones or lesions. We turned our attention to the proximal ureteral orifice presumed to be the left ureteral orifice. We placed a sensor guidewire through t he scope and into the patient's left renal pelvis. Position was confirmed with fluoroscopy. We then did the same with another sensor guidewire for a total of 2 wires in the patient's left renal pelvis with the assistance of a dual lumen c atheter. Again, position was confirmed with fluoroscopy. The wires were then b ack loaded over the scope and one wire was secured to the drapes as safety wire. The other was our working wire. Over our working wire we gently introduced our digital ureteroscope. We then performed a ureteroscopy using a flexible uretero scope. A systematic inspection of the kidney revealed some debris but no suspic ious lesions. We then withdrew our ureteroscope slowly, making sure to inspect the ureter on t he way out. There was an area of mild thickening that did not look like obvious cancer at the distal ureter. We took three biopsies around this area. There was good hemostasis and his ureter was noted to be widely patent. Decision was made to not leave a stent behind. The procedure was then terminated. There were no complications. All sponge and instrument counts were correct at th e end of the case. The patient tolerated the procedure well and was taken to PAC U in stable condition. Estimated Blood Loss: No blood loss documented. Specimen(s) Removed/Disposition: ID Type Source Tests Collected by Time Destination 1 : LEFT URETER BIOPSY(THREE VERY SMALL BIOPSIES-PLS LOOK CLOSVARUN) Tissue Ureter ,Left SURGICAL PATHOLOGY Tasia Amaro MD 04/11/2019 0946 Implants: None Dispo: PACU - stable Steve Edwards MD Pager [phone] ATTESTATION I performed this procedure with a resident. Staff name: Tasia Amaro MD Date: 04/12/2019 O CLEANER documented in this encounter Plan of Treatment Not on filedocumented as of this encounter Goals Goal Patient Associated Recent Progress Patient-Stat Aut hor Goal Type Problems ed? 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 Recover from illness Hospital Yes Patrick Angel RN Note: "To heal and recover and get back to normal" documented as of this encounter Procedures Comments Procedure Name Priority Date/Time Associated Diag nosis FLUORO MOBILE IN OR STAT 04/11/2019 4:59 PM LINGO CLEANER HC LVL IV SRG PTH, GROSS Routine 04/11/2019 Gross hematuria & MICRO 4:47 PM LINGO CLEANER CYSTOURETHROSCOPY WITH 04/11/2019 Gross hematuri a URETEROSCOPY AND/ OR 4:13 PM LINGO CLEANER PYELOSCOPY - WITH BIOPSY AND/ OR FULGURATION URETERAL/ RENAL PELVIC LESION POC GLUCOSE 04/11/2019 3:35 PM LINGO CLEANER TELEMETRY STRIPS-SCAN 04/11/2019 12:00 AM LINGO CLEANER documented in this encounter Results * FLUORO MOBILE IN OR (04/11/2019 4:59 PM LINGO CLEANER) Specimen Narrative Performed At This order has been auto finalized and does not conta in a result. [facility] Performing Organization Address City/State/Rustcode Ph one Number [facility] * SURGICAL PATHOLOGY (04/11/2019 4:47 PM LINGO CLEANER) PATHOLOGY [email or web address] Department of Pathology and Laboratory Medicine [address] [place] [id number] Surgical Pathology Office: [phone] SURGICAL PATHOLOGY REPORT NAME: LEONID KENNEDY SURG PATH #: [id number] MR #: [id number] SPECIMEN CLASS: SR BILLING #: [id number] ALT ID #: LOCATION: [facility] DATE OF PROCEDURE: 04/11/2019 AGE: 83 SEX: M DATE RECEIVED: 04/12/2019 : 1935 TIME RECEIVED: 07:05 PHYSICIAN: TASIA AMARO MD DATE OF REPORT: 04/16/2019 COPY TO: DATE OF PRINTIN04/16/2019 ############################## ############################## ############ Final Diagnosis: A. 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 Comment: Pursuant to the [facility] Lab Technician Program at the [facility] Pathology Department, selected slides from this case have been concurrently reviewed by the following pathologist: Dr. Asuncion Brooks who agrees with the final diagnosis. Attestation: By this signature, I attest that I have personally formulated the final interpretation expressed in this report and that the above diagnosis is based upon my examination of the slides and/or other material indicated in this report. +++ +++ Adonis Albert MD Fellow [facility]/04/12/2019 ############################## ############################## ############ Material Received: A: left ureter biopsy History: 83-year-old male with a history of gross hematuria Gross Description: A. Received in formalin, labeled with the patient's name and "left ureter biopsy" is a 0.2 x 0.1 x 0.1 cm aggregate of tiny carolin of tissue fragments. The specimen is filtered and entirely submitted in cassette A1. (tn) [email or web address]/12/2019 Specimen Tissue - Ureter,Left Performing Organization Address City/[facility] [place] [place] Ph one Number MAIN LAB [address] [place] [address] * POC GLUCOSE (04/11/2019 3:35 PM LINGO CLEANER) Glucose, POC 93 70 - 100 MG/DL MAIN LAB Specimen Performing Organization Address [facility] [place] [place] Ph one Number MAIN LAB [address] [place] [address] * TELEMETRY STRIPS-SCAN (04/11/2019 12:00 AM LINGO CLEANER) Narrative Performed At This result has an attachment that is n ot available. Ordered by an unspecified provider. documented in this encounter Visit Diagnoses Diagnosis Gross hematuria - Primary documented in this encounter Administered Medications Action Date Dose Rate Site Medication Order MAR Action diphenhydrAMINE (BENADRYL) injection 25 mg 25 mg, Intravenous, ONCE PRN, 1 dose, Starting Emily 04/11/19 at 1655, Until Emily 04/11/19 at 1952, Other..., nausea/vomiting, Second line agent, giv e if first line agent ineffective., PACU (only) fentaNYL citrate PF (SUBLIMAZE) injection 25-50 mcg 25-50 mcg, Intravenous, EVERY 5 MIN PRN, Starting Emily 04/11/19 at 1655, Unti l Emily 04/11/19 at 195, Pain Injectable, For Pain Score < 4, For Pain Score < 4 Maximum total dose of 200 mcg Hold for RR < 10, PACU (only) lidocaine PF 1% (10 mg/mL) injection 0.1-2 mL 0.1-2 mL, Injection, NEEDED, Startin g Emily 04/11/19 at 1602, Until Emily 04/11/19 at 1951, Other..., for IV insertion, Pre-Op ondansetron (ZOFRAN) injection 4 mg 4 mg, Intravenous, ONCE PRN, 1 dose, Starting Emily 04/11/19 at 1655, Until Emily 04/11/19 at 1951, Other..., nausea/vomiting, First line agent., DO NOT ADMINISTER if given within the last six hours., PACU (only) oxyCODONE (ROXICODONE) tablet 5-10 mg 5-10 mg, Oral, ONCE PRN, 1 dose, Starting Emily 04/11/19 at 1655, Until Emily 04/11/19 at 1951, Pain PO, For Pain Scor e <4, For Pain Score <4, PACU (only) 04/11/2019 3:33 PM LINGO CLEANER 1,000 mL 20 mL/hr sodium chloride 0.9 % infusion Given - New 1,000 mL, 1,000 mL, Intravenous, at 20 Bag mL/hr, CONTINUOUS, Starting Emily 04/11/19 at 1515, Until Emily 04/11/19 at 1951, Pre-Op documented in this encounter
--- OUTSIDE RECORDS SUMMARY | 2019-05-20 17:02 | XMS REPORT | Encounter Summary ---
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] P rocedures IL URETEROPLASTY PLASTIC OPERATION URETER IL URETEROPLASTY PLASTIC OPERATION URETER URETEROPLASTY, DISTAL URETERECTOMY WITH REIMPLANT INTO CONDUIT, POSSIBLE LEFT NEPHROURETERECTOMY Encounter Details Care Team Description Date Type Department Haris Norman MD [id number] [place] [address] [phone] Pb Pacheco DO [address] [place] [address] [phone] 04/24/2019 Anesthesia [facility] [place] [address] [address] Anesthesia Record Responsible Anesthesiologist Anesthesia Start Time Anesthesi a Stop Time Procedure Name Haris Norman MD 04/24/19 1216 04/24/19 1629 URETEROPLASTY, RIGHT DISTAL URETERECTOMY WITH REIMPLANT INTO CONDUIT, LEFT NEPHROURETERECTOMY (Bilateral Abdomen) Date Time Event Comment 1010 AN Equip Check 1215 Out of Pre Procedure 1216 Anes Start 1219 In Room 1219 An Start Data 1225 An Induction The patient was ree valuated immediately before moderate or deep sedation use and before anesthesia induction. 1229 An Intubation 1237 an john now 1242 Antibiotic Given 1247 Proc Start 1300 Anesthesia Ready 1619 An Extubation 1621 an stop data 1628 Handoff to RN I completed my SBAR handoff to the receiving nurse. 1629 An Stop Meds Name Total lidocaine (2%) 200 mg/10mL Injection 80 mg syringe propofol (DIPRIVAN) 200 mg/ 20 mL 100 mg injection (VIAL) rocuronium (ZEMURON) injection 140 mg dexamethasone (DECADRON) 4 mg/mL 4 mg injection dextran 70/hypromellose (GENTEAL TEARS; 1 drop BION TEARS) ophthalmic solution propofol (DIPRIVAN) infusion 2,596.72 mg bupivacaine (MARCAINE) 0.5% injection 40 mL dexamethasone (DECADRON) 10 mg/mL 4 mg injection fentaNYL PF (SUBLIMAZE) injection 300 mcg lidocaine PF 1% (10 mg/mL) injection 2 mL ceFAZolin (ANCEF) injection 2 g HYDROmorphone injection (DILAUDID) 2 2 mg mg syringe sodium chloride 0.9 % infusion 800 mL electrolyte-A (PLASMA-LYTE A PH 7.4) 400 mL infusion albumin 5% infusion (500 mL) 1,000 mL * Name O2 N2O Inspired N2O * No blood administrations on file. Removal [...] Incision (UROSTOMY BAG) MARIAN Knutson Pressure Injuries) Wounds 04/24/19; 1247; Anterior, Mid; Abdomen; 04/24/19 1247 by Jose David, (NOT for Surgical Incision MARIAN Calderon Pressure Injuries) Kenn 04/24/19; 1530; Anterior, Mid; Abdomen; 04/24/19 1530 by Karina Main 10 FR; #1 MARIAN Calderon Drain 04/26/19 1030 by Neri De Souza RN Peripheral 04/24/19; 1058; RN; R; Hand; 20 G; No; 04/24/19 1058 by MINESH Sullivan Symptomatic (phlebitis, pain, leaking, MARIAN Dolan infiltration); 04/26/19; 1030 04/24/19 1620 by Kamille Campos RN Peripheral 04/24/19; 1205 (created via procedure 04/24/19 1205 by Nerve documentation); 22 G; 04/24/19; 1620 V Juan Jose daniel DO Catheter (error in charting) 04/24/19 1619 by Haris Calderon ETT 04/24/19; 1229; Ventilated by mask with 04/24/19 1229 by kathrin Puentes airway (2); Direct laryngoscopy, BECK Winters Stylet; Cuffed, Single-Lumen; 7.5mm; Mac; 3; Oral; 1-Full view of the glottis; 1 insertion attempt; ETCO2 Detector; 23 centimeters; maskable with OPA and robust jaw lift prior to MR setting up (atraumatic); 04/24/19; 1619 04/28/19 1115 by Sadia Rabago Peripheral 04/24/19; 1230; L; Antecubital; 18 G; 1 ; 04/24/19 1230 by MINESH Puentes Symptomatic (phlebitis, pain, leaking, BECK Winters infiltration); 04/28/19; 1115 04/24/19 1620 by Kamille Campos RN NG/OG Tube 04/24/19; 1230; Oral; 16 FR; 04/24/19; 04/24/19 1230 by Dhaval, 1620 (not present on arrival to pacu) BECK Winters 04/24/192019 by Nicolette Angeles RN Arterial 04/24/19; 1244 (created via procedure 04/24/19 1244 by , Line documentation); 20 G; 04/24/19; 2019 Angela marc MD 04/29/19 0715 by Divya Maharaj RN Nephrouret 04/24/19; 1507; (RIGHT URETER); (7 0 04/24/19 1507 by eddy Main Drain FR); 04/29/19 (Drains with IC); 0715 K MARIAN josue documented in this encounter Social History Date [...] OR Notes * Anesthesia Postprocedure Evaluation - Phong Estrada MD - 04/24/2019 8:57 PM MORTGAGE LOAN PROCESSOR Post-Anesthesia Evaluation Name: Leonid Kennedy Jr. : 1935 Age: 83 y.o . Sex: male Procedure Date: 04/24/2019 Procedure(s) (LRB): URETEROPLASTY, RIGHT DISTAL URETERECTOMY WITH REIMPLANT INTO CONDUIT, LEFT NEPH ROURETERECTOMY (Bilateral) Surgeon: Surgeon(s): Denton Nguyen MD Holzbeierlein, Jeffrey M, MD Post-Anesthesia Vitals BP: 140/83 (04/24 2051) Temp: 36.8 C (98.3 F) (04/24 2051) Pulse: 83 (04/24 2051) Respirations: 14 PER MINUTE (04/24 2051) SpO2: 93 % (04/24 2051) SpO2 Pulse: 88 (04/24 1999) Vitals Value Taken Time BP 140/65 04/24/2019 8:00 PM Temp 36 C (96.8 F) 04/24/2019 8:00 PM Pulse 88 04/24/2019 8:00 PM Respirations 11 PER MINUTE 04/24/2019 8:00 PM SpO2 97 % 04/24/2019 8:00 PM Post Anesthesia Evaluation Note Evaluation location: Pre/Post Patient participation: recovered; patient participated in evaluation Level of consciousness: alert Pain management: adequate Hydration: normovolemia Temperature: 36.0C - 38.4C Airway patency: adequate Perioperative Events Post-op nausea and vomiting: nausea; resolved Postoperative Status Cardiovascular status: hemodynamically stable Respiratory status: spontaneous ventilation Follow-up needed: none Perioperative Events Perioperative Event: No Emergency Case Activation: No ATTESTATION Post-Anesthesia Evaluation Attestation: I reviewed and agree the indicated post- anesthesia care was provided. I have reviewed stevens portions of the indicated post anesthesia care. I have examined the patient's vitals, physical status, and com plications and agree with what is documented. Staff name: Phong Estrada MD Date: 04/29/2019 GAGE LOAN PROCESSOR * Anesthesia Procedure Notes - Haris Norman MD - 04/24/2019 12:44 PM MORTGAGE LOAN PROCESSOR Associated Order(s): A-LINE INSERTION Anesthesia Procedure: Arterial Line Placement A-LINE INSERTION Date/Time: 04/24/2019 12:44 PM Patient location: OR Indications: frequent labs and hemodynamic monitoring Preprocedure checklist performed: 2 patient identifiers, risks & benefits discussed, patient evaluated, timeout performed, consent obtained, patient being monitored and sterile drape Sterile technique: - Proper hand washing - Cap, mask - Sterile gloves - Skin prep for antisepsis Arterial Line Procedure Patient sedated: yes (see MAR) Sedation type: general; Artery prepped with alcohol swabs; skin prep agent completely dried prior to pro cedure. Location: radial artery Laterality: right Technique: palpation Needle gauge: 20 G Number of attempts: 1 Procedure Outcome Catheter secured with adhesive dressing applied Events: no complications noted during insertion and skin intact, warm, and dry Observation: pt tolerated well Performed by: Haris Norman MD Authorized by: Haris Norman MD GAGE LOAN PROCESSOR * Anesthesia Procedure Notes - Kareem Kurtz MD - 04/24/2019 12:11 PM MORTGAGE LOAN PROCESSOR Associated Order(s): PERIPHERAL NERVE BLOCK Anesthesia Procedure: Peripheral Nerve Block PERIPHERAL NERVE BLOCK Date/Time: 04/24/2019 12:05 PM Patient location: pre-op Reason for block: at surgeon's request and post-op pain management Preprocedure checklist performed: 2 patient identifiers, risks & benefits discussed, patient evaluated, timeout performed, consent obtained, patient being monitored and sterile drape Sterile technique: - Proper hand washing - Cap, mask - Sterile gloves - Skin prep for antisepsis Peripheral Nerve Block Procedure Patient position: supine Prep: ChloraPrep Monitoring: BP, EKG and continuous pulse ox Block type: TAPs Laterality: bilateral Injection technique: single-shot Procedures: ultrasound guided Ultrasound image captured Needle/cathether: Needle type: Stimuplex Needle gauge: 22 G; Needle length: 4 in Needle location: anatomical landmarks and ultrasound guidance Procedure Medications Sedation: fentaNYL citrate PF (SUBLIMAZE) injection, 50 mcg Local Anesthesia: lidocaine PF 1% (10 mg/mL) injection, 2 mL Bolus Dose: bupivacaine (MARCAINE) 0.5 % injection, 40 mL Adjuvant Medications: dexamethasone (DECADRON) injection, 4 mg Procedure Outcome Injection assessment: negative aspiration for heme, no paresthesia on injection, incremental injection and local visualized surrounding nerve on ultrasound Observations: adequate block, patient sedated but conversant throughout block, p atient tolerated the procedure well with no immediate complications and comforta ble throughout block Refer to nursing documentation for vitals and monitoring data during procedure. Performed by: Juan Jose Pizarro DO Authorized by: Kareem Kurtz MD I was present during the entire procedure performed by a resident GAGE LOAN PROCESSOR * Anesthesia Preprocedure Evaluation - Haris Norman MD - 04/24/2019 10:09 AM MORTGAGE LOAN PROCESSOR Anesthesia Pre-Procedure Evaluation Name: Leonid Kennedy Jr. : 1935 Age: 83 y.o . Sex: male Cystoscopy ureteroscopy Physical Assessment Vital Signs (last filed in past 24 hours): BP: 128/86 (04/24 1203) Temp: 37.7 C (99.9 F) (04/24 1041) Pulse: 72 (04/24 1203) Respirations: 19 PER MINUTE (04/24 1203) SpO2: 97 % (04/24 120) Height: 165.1 cm (65") (04/24 104) Weight: 87.9 kg (193 lb 12.8 oz) (04/24 1040) Patient History Allergies Allergen Reactions Bee Venom [...] mouth every morning. Indications : Leg cramps docusate (COLACE) 100 mg capsule Take 300 mg by mouth daily. Takes one AM, two a t HS fish oil /omega-3 fatty acids (SEA-OMEGA) 340/1000 mg capsule Take 1 Cap by mout h twice daily. gemfibrozil (LOPID) 600 mg tablet [...] times daily as n eeded. not taking meloxicam (MOBIC) 15 mg tablet Take 15 mg by mouth daily. milk of magnesia (CONC) 2,400 mg/10 mL oral suspension Take 10 mL by mouth twice daily as needed. Indications: CONSTIPATION Patient not taking: Reported on 04/18/[address](+) (PRILOSEC) 40 mg capsule Take [...] by Cory Amaro MD at [facility] OR/Periop CYSTOURETHROSCOPY WITH URETEROSCOPY AND PYELOSCOPY - WITH BIOPSY Left 020 Performed by Cory Amaro MD at [facility]/Periop COLONOSCOPY HX HEART CATHETERIZATION 12 heart caths-5 stents, most recent 2011 Social History Tobacco Use Smoking status: Former Smoker Packs/day: 1.50 Years: 20.00 Pack years: 30.00 Types: Cigarettes, Cigars Last attempt to quit: 03/27/1974 Years since quittin.1 Smokeless tobacco: Never Used Substance Use Topics Alcohol use: No Review of Systems/Medical History Patient summary reviewed Nursing notes reviewed Pertinent labs reviewed PONV Screening: Non-smoker and Postoperative opioids History of anesthetic complications (prolonged awakening (asleep [...] 24 hours: No Hypertension, well controlled Past VA, > 6 months Coronary artery disease Coronary artery bypass graft (x1 in 1999) PTCA with stent placement: total of 6 stents, last stent Jan 2018 PVD (carotid stenosis) Hyperlipidemia Daily ASA Able to walk flat surface treadmill at cardiac rehab GI/Hepatic/Renal GERD, well controlled No chronic renal disease Neuro/Psych Hx TIA (possible per pt) Sensory deficit Psychiatric history 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 Abdominal Findings: Obese Abdominal exam deferred Neurological Findings: Alert and oriented x 3 Normal mental status Constitutional findings: No acute distress Other Findings: Hard of hearing Diagnostic Tests Hematology: Lab Results Component Value Date HGB 14.2 04/24/2019 HCT 41.3 04/24/2019 PLTCT 205 04/24/2019 WBC 6.7 04/24/2019 NEUT 68 09/02/2016 ANC 3.10 09/02/2016 ALC 0.70 09/02/2016 DONA 9 09/02/2016 AMC 0.40 09/02/2016 EOSA 7 09/02/2016 ABC 0.00 09/02/2016 MCV 91.4 04/24/2019 MCH 31.4 04/24/2019 MCHC 34.3 04/24/2019 MPV 7.4 04/24/2019 RDW 17.2 04/24/2019 General Chemistry: Lab Results Component Value Date NA 137 04/24/2019 K 4.0 04/24/2019 CL 103 04/05/2019 CO2 28 04/05/2019 GAP 8 04/05/2019 BUN 21 04/05/2019 CR 1.3 04/05/2019 CR 1.24 04/05/2019 GLU 108 04/24/2019 CA 9.2 04/05/2019 ALBUMIN 3.8 09/02/2016 OBSCA [...] Anesthesia Plan ASA score: 3 Plan: general and regional for postoperative pain Induction method: intravenous NPO status: acceptable Informed Consent Anesthetic plan and risks discussed with patient. Use of blood products discussed with patient Plan discussed with: LAUNDRY HOUSEKEEPING AIDE and anesthesiologist. Comments: (Risks of GETA and TAPS block explained; AQA; pt wishes to proceed) GAGE LOAN PROCESSOR documented in this encounter Miscellaneous Notes * Addendum Note - Phong Estrada MD - 04/29/2019 3:09 PM MORTGAGE LOAN PROCESSOR Addendum created 04/29/19 1509 by Phong Estrada MD Clinical Note Signed GAGE LOAN PROCESSOR * Addendum Note - Kareem Kurtz MD - 04/25/2019 6:58 AM MORTGAGE LOAN PROCESSOR Addendum created 04/25/19 0658 by Kareem Kurtz MD Clinical Note Signed, Diagnosis association updated, Intraprocedure Blocks edit ed GAGE LOAN PROCESSOR documented in this encounter Plan of Treatment Not on filedocumented as of this encounter Goals Goal Patient Associated Recent Progress Patient-Stat Aut hor Goal Type Problems ed? 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 Intake RN Recover from illness Hospital Yes Patrick Angel RN Note: "To heal and recover and get back to normal" documented as of this encounter Procedures Comments Procedure Name Priority Date/Time Associated Diag nosis ANESTHESIA ARTERIAL LINE Routine 04/24/2019 INSERTION 12:44 PM MORTGAGE LOAN PROCESSOR ANESTHESIA PERIPHERAL Routine 04/24/2019 NERVE BLOCK 12:11 PM MORTGAGE LOAN PROCESSOR documented in this encounter Results * A-LINE INSERTION (04/24/2019 12:44 PM MORTGAGE LOAN PROCESSOR) Narrative Performed At Haris Norman MD 04/24/2019 [...] * PERIPHERAL NERVE BLOCK (04/24/2019 12:11 PM MORTGAGE LOAN PROCESSOR) Narrative Performed At Kareem Kurtz MD 04/25/2019 [...] Pizarro DO Authorized by: Kareem Kurtz MD documented in this encounter Visit Diagnoses Not on filedocumented in this encounter Administered Medications Action Date Dose Rate Site Medication Order MAR Action 04/24/2019 3:45 PM MORTGAGE LOAN PROCESSOR albumin 5% infusion (500 mL) Given - New INTRA-PROCEDURE MED(CONT), Starting Mon Bag 04/24/19 at 1235, Until Mon04/24/19 at 1635, Anesthesia Intra-op Given - New Bag 04/24/2019 12:35 PM MORTGAGE LOAN PROCESSOR 04/24/2019 12:05 PM MORTGAGE LOAN PROCESSOR 40 mL bupivacaine (MARCAINE) 0.5 % injection Given Block, Starting Mon04/24/19 at 1205, Until Mon04/24/19 at 1205, Anesthesia Intra-op 04/24/2019 12:40 PM MORTGAGE LOAN PROCESSOR 2 g ceFAZolin (ANCEF) injection Given INTRA-PROCEDURE MED, Starting Mon04/24/19 at 1240, Until Mon04/24/19 at 1635, Anesthesia Intra-op 04/24/2019 12:05 PM MORTGAGE LOAN PROCESSOR 4 mg dexamethasone (DECADRON) injection Given SEE ADMIN INSTRUCTIONS, Starting Mon04/24/19 at 1205, Until Mon04/24/19 at 1205, Anesthesia Intra-op 04/24/2019 1:13 PM MORTGAGE LOAN PROCESSOR 4 mg dexamethasone (DECADRON) injection Given Intravenous, INTRA-PROCEDURE MED, Starting Mon04/24/19 at 1313, Until Mon04/24/19 at 1635, Anesthesia Intra-op 04/24/2019 12:30 PM MORTGAGE LOAN PROCESSOR 1 drop dextran 70/hypromellose (GENTEAL TEARS) Given ophthalmic solution INTRA-PROCEDURE MED, Starting Mon04/24/19 at 1230, Until Mon04/24/19 at 1635, Anesthesia Intra-op 04/24/2019 12:30 PM MORTGAGE LOAN PROCESSOR electrolyte-A (PLASMA-LYTE A PH 7.4) Given - New injection Bag INTRA-PROCEDURE MED(CONT), Starting Mon04/24/19 at 1230, Until Mon04/24/19 at 1635, Anesthesia Intra-op 04/24/2019 1:40 PM MORTGAGE LOAN PROCESSOR 50 mcg fentaNYL citrate PF (SUBLIMAZE) Given injection Intravenous, Starting Mon04/24/19 at 1205, Until Mon04/24/19 at 1340, Anesthesia Intra-op 50 mcg Given 04/24/2019 12:47 PM MORTGAGE LOAN PROCESSOR 100 mcg Given 04/24/2019 12:29 PM MORTGAGE LOAN PROCESSOR 04/24/2019 4:05 PM MORTGAGE LOAN PROCESSOR 0.5 mg HYDROmorphone injection (DILAUDID) Given INTRA-PROCEDURE MED, Starting Mon04/24/19 at 1458, Until Mon04/24/19 at 1635, Anesthesia Intra-op 0.5 mg Given 04/24/2019 3:09 PM MORTGAGE LOAN PROCESSOR 0.5 mg Given 04/24/2019 2:58 PM MORTGAGE LOAN PROCESSOR 04/24/2019 12:29 PM MORTGAGE LOAN PROCESSOR 80 mg lidocaine (PF) injection Given INTRA-PROCEDURE MED, Starting Mon04/24/19 at 1229, Until Mon04/24/19 at 1635, Anesthesia Intra-op 04/24/2019 12:05 PM MORTGAGE LOAN PROCESSOR 2 mL lidocaine PF 1% (10 mg/mL) injection Given Subcutaneous, Starting Mon04/24/19 at 1205, Until Mon04/24/19 at 1205, Anesthesia Intra-op 04/24/2019 3:30 PM MORTGAGE LOAN PROCESSOR 130 mcg/kg/min 68.6 mL/hr propofol (DIPRIVAN) infusion Dose/Rate 100 mL, INTRA-PROCEDURE MED(CONT), Change Starting Mon04/24/19 at 1242, Until Mon04/24/19 at 1635, Anesthesia Intra-op 140 mcg/kg/min 73.8 mL/hr Dose/Rate Change 04/24/2019 3:20 PM MORTGAGE LOAN PROCESSOR 140 mcg/kg/min 73.8 mL/hr Dose/Rate Change 04/24/2019 3:05 PM MORTGAGE LOAN PROCESSOR 04/24/2019 1:59 PM MORTGAGE LOAN PROCESSOR 10 mg propofol (DIPRIVAN) injection Given INTRA-PROCEDURE MED, Starting Mon04/24/19 at 1229, Until Mon04/24/19 at 1635, Anesthesia Intra-op 90 mg Given 04/24/2019 12:29 PM MORTGAGE LOAN PROCESSOR 04/24/2019 3:20 PM MORTGAGE LOAN PROCESSOR 20 mg rocuronium injection Given Intravenous, INTRA-PROCEDURE MED, Starting Mon04/24/19 at 1229, Until Mon04/24/19 at 1635, Anesthesia Intra-op 20 mg Given 04/24/2019 2:29 PM MORTGAGE LOAN PROCESSOR 10 mg Given 04/24/2019 2:10 PM MORTGAGE LOAN PROCESSOR documented in this encounter
--- OUTSIDE RECORDS SUMMARY | 2019-05-20 17:02 | XMS REPORT | Encounter Summary ---
Author Author [facility] Organization [facility] Address Unknown Phone Unavailable Care Team Providers Care Forepart Laster Name Role Phone Tasia Amaro MD Unavailable [phone] Min Lindsey MD PCP Karen Aguirre RN Unavailable Unavailable Alfredo Everett MD Unavailable Jazmine Germain RN Unavailable Unavailable Kit Tian MD Unavailable Dinorah Khan RN Unavailable Unavailable Reason for Visit * Auth/Cert Referred By Contact Referred To Contact Status Reason Specialty Diagnoses / Procedures Diagnoses Gross hematuria Gross hematuria [R31.0] P rocedures MD CYSTO/PYELOSCOPY BX&/FULGURATION PELIVC LESION MD CYSTO/PYELOSCOPY BX&/FULGURATION PELIVC LESION CYSTOURETHROSCOPY WITH URETEROSCOPY AND/ OR PYELOSCOPY - WITH BIOPSY AND/ OR FULGURATION URETERAL/ RENAL PELVIC LESION Encounter Details Care Team Description Date Type Department Tasia Amaro MD [address] [facility] [place] [address] CYSTOURETHROSCOPY WITH URETEROSCOPY AND PYELOSCOPY - WITH BIOPSY 04/11/2019 Surgery [facility] OR [address] [address] Social History Date Tobacco Use [...] Comments Vital Sign 126/107 04/11/2019 5:30 PM SPEECH THERAPIST EARLY INTERVENTION Blood Pressure 75 04/11/2019 5:30 PM SPEECH THERAPIST EARLY INTERVENTION Pulse 36.6 C (97.9 F) 04/11/2019 5:02 PM SPEECH THERAPIST EARLY INTERVENTION Temperature - - Respiratory Rate 98% 04/11/2019 5:30 PM SPEECH THERAPIST EARLY INTERVENTION Oxygen Saturation - - Inhaled Oxygen Concentration 86.2 kg (190 lb) 04/11/2019 3:12 PM SPEECH THERAPIST EARLY INTERVENTION Weight 167.6 cm (5' 6") 04/11/2019 3:12 PM SPEECH THERAPIST EARLY INTERVENTION Height 30.67 04/11/2019 3:12 PM SPEECH THERAPIST EARLY INTERVENTION Body Mass Index documented in this encounter [...] or Vomiting. not taking 08/17/2016 Ostomy Supplies [facility] [place] Use 10 Units 10 [...] Tasia Amaro MD - 04/11/2019 3:22 PM SPEECH THERAPIST EARLY INTERVENTION History and Physical Update Note Allergies: Bee venom protein (honey bee) Lab/Radiology/Other Diagnostic Tests: 24-hour labs: No results found for this visit on 04/11/19 (from the past 24 aye r(s)). Point of Care Testing: (Last 24 hours): I have examined the patient, and there are no significant changes in their condi tion, from the previous H&P performed on 04/05/19.. Tasia Amaro MD Pager [phone] CH THERAPIST EARLY INTERVENTION * Tasia Amaro MD - 04/05/2019 1:15 PM SPEECH THERAPIST EARLY INTERVENTION Date of Service: 04/05/2019 Subjective: Leonid Kennedy Jr. is a 83 y.o. male. History of Present Illness 83-year-old white male with a history of bladder cancer status post radical cyst ectomy with ileal conduit July 2016 for pTis N0 MX urothelial cell carcinoma. He also had an incidentally discovered [place] 3+ 4P T3a prostate cancer. He retu [...] with results of CT and discuss ureteroscopy. CH THERAPIST EARLY INTERVENTION documented in this encounter Miscellaneous Notes * Operative Report (Direct Entry) - Tasia Amaro MD - 04/11/2019 3:31 PM SPEECH THERAPIST EARLY INTERVENTION OPERATIVE REPORT Name: Leonid Kennedy Jr. is [...] ,Left SURGICAL PATHOLOGY Tasia Amaro MD 04/11/2019 1645 Implants: None Dispo: PACU - stable Steve Edwards MD Pager [phone] ATTESTATION I performed this procedure with a resident. Staff name: Tasia Amaro MD Date: 04/12/2019 CH THERAPIST EARLY INTERVENTION documented in this encounter Plan of Treatment Not on filedocumented as of this encounter Goals Goal Patient Associated Recent Progress Patient-Stat Aut hor Goal Type Problems ed? 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, diamond polisher Recover from illness Hospital Yes Patrick Angel, MARIAN Note: "To heal and recover and get back to normal" documented as of this encounter Procedures Comments Procedure Name Priority Date/Time Associated Diag nosis FLUORO MOBILE IN OR STAT 04/11/2019 4:59 PM SPEECH THERAPIST EARLY INTERVENTION HC LVL IV SRG PTH, GROSS Routine 04/11/2019 Gross hematuria & MICRO 4:47 PM SPEECH THERAPIST EARLY INTERVENTION CYSTOURETHROSCOPY WITH 04/11/2019 Gross hematuri a URETEROSCOPY AND/ OR 4:13 PM SPEECH THERAPIST EARLY INTERVENTION PYELOSCOPY - WITH BIOPSY AND/ OR FULGURATION URETERAL/ RENAL PELVIC LESION POC GLUCOSE 04/11/2019 3:35 PM SPEECH THERAPIST EARLY INTERVENTION TELEMETRY STRIPS-SCAN 04/11/2019 12:00 AM SPEECH THERAPIST EARLY INTERVENTION documented in this encounter Results * FLUORO MOBILE IN OR (04/11/2019 4:59 PM SPEECH THERAPIST EARLY INTERVENTION) Specimen Narrative Performed At This order has been auto finalized and does not conta in a result. [facility] Performing Organization Address City/State/[facility] Ph one Number [facility] * SURGICAL PATHOLOGY (04/11/2019 4:47 PM SPEECH THERAPIST EARLY INTERVENTION) PATHOLOGY [facility] [email or web address] Department of Pathology and Laboratory Medicine [address] [place] [id number] Surgical Pathology Office: [phone] SURGICAL PATHOLOGY REPORT NAME: LEONID KENNEDY SURG PATH #: [id number] MR #: [id number] SPECIMEN CLASS: SR BILLING #: [id number] ALT ID #: LOCATION: [facility] DATE OF PROCEDURE: 04/11/2019 AGE: 83 SEX: M DATE RECEIVED: 04/12/2019 : 1935 TIME RECEIVED: 07:05 PHYSICIAN: TASIA AMARO MD DATE OF REPORT: 04/16/2019 COPY TO: DATE OF PRINTIN04/16/2019 ############################## ############################## ############ Final Diagnosis: A. 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 Comment: Pursuant to the Pocket Machine Operator Program at the [facility] Pathology Department, selected slides from this case [...] report. +++ +++ Adonis Albert MD Fellow alw/04/12/2019 ############################## ############################## ############ Material Received: A: left ureter biopsy History: 83-year-old male with a history of gross hematuria Gross Description: A. Received in formalin, labeled with the patient's name and "left ureter biopsy" is a 0.2 x 0.1 x 0.1 cm aggregate of tiny carolin of tissue fragments. The specimen is filtered and entirely submitted in cassette A1. (tn) valenzuela/04/12/2019 Specimen Tissue - Ureter,Left Performing Organization Address City/[facility] Ph one Number MAIN LAB [address] [place] [address] * POC GLUCOSE (04/11/2019 3:35 PM SPEECH THERAPIST EARLY INTERVENTION) Glucose, POC 93 70 - 100 MG/DL MAIN LAB Specimen Performing Organization Address [facility] Ph one Number MAIN LAB [address] [place] [address] * TELEMETRY STRIPS-SCAN (04/11/2019 12:00 AM SPEECH THERAPIST EARLY INTERVENTION) Narrative Performed At This result has an attachment that is n ot available. Ordered by an unspecified provider. documented in this encounter Visit Diagnoses Diagnosis Gross hematuria documented in this encounter Administered Medications Action [...] at 1655, Unti l Emily 04/11/19 at 1951, Pain Injectable, For Pain Score < 4, [...] Score <4, PACU (only) 04/11/2019 3:33 PM SPEECH THERAPIST EARLY INTERVENTION 1,000 mL 20 mL/hr sodium chloride 0.9 % infusion Given - New 1,000 mL, 1,000 mL, Intravenous, at 20 Bag mL/hr, CONTINUOUS, Starting Emily 04/11/19 at 1515, Until Emily 04/11/19 at 1951, Pre-Op documented in this encounter
--- OUTSIDE RECORDS SUMMARY | 2019-05-20 17:02 | XMS REPORT | Encounter Summary ---
Author Author [facility] Organization [facility] Address Unknown Phone Unavailable Care Team Providers Care Tongue And Groove Machine Feeder Name Role Phone Cory Amaro MD Unavailable [phone] Min Lindsey MD PCP Karen Aguirre RN Unavailable Unavailable Alfredo Everett MD Unavailable Jazmine Germain RN Unavailable Unavailable Kit Tian MD Unavailable Dinorah Khan RN Unavailable Unavailable Encounter Details Care Team Description Date Type Department Cory Amaro MD [address] [facility] [place], [place] [id number] 04/05/2019 [facility] Social History Date Tobacco Use Types Packs/Day [...] 0 mg tablet mouth at bedtime daily. vitamins, multiple cap Take 1 Cap by 0 mouth daily. 04/18/2019 clopiDOGrel (PLAVIX) 75 Take 75 mg by 0 mg tablet mouth daily. 04/18/2019 fluoxetine HCl Take by 0 (FLUOXETINE PO) mouth. 04/18/2019 fluticasone (FLOVENT HFA) Inhale 2 0 110 mcg/actuation inhaler puffs by mouth into the lungs twice daily. 08/17/2016 04/25/2019 milk of magnesia (CONC) Take 10 mL by 360 mL 1 2,400 mg/10 mL oral mouth twice suspensionIndications: daily as constipation needed. Indications: CONSTIPATION 04/18/2019 other medication Take 1 Dose 0 by mouth daily. Prevagen 08/17/2016 04/11/2019 traMADol (ULTRAM) 50 mg Take 1 Tab by 40 Tab 0 tabletIndications: pain mouth every 6 hours as needed for Pain. Indications: PAIN 04/18/2019 traZODone (DESYREL) 150 Take 300 mg 0 mg tablet by mouth at bedtime daily. documented as of this encounter Plan of Treatment Not on filedocumented as of this encounter Goals Goal Patient Associated Recent Progress Patient-Stat Aut hor Goal Type Problems ed? 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, integrated circuits inspector Recover from illness Hospital Yes Patrick Angel RN Note: "To heal and recover and get back to normal" documented as of this encounter Procedures Comments Procedure Name Priority Date/Time Associated Diag nosis NOTES 04/05/2019 10:15 AM ELEVATORS INSPECTOR HC PROSTATIC SPECIF Routine 04/05/2019 Prostate c ancer (HCC) AG(PSA);TOT 10:15 AM ELEVATORS INSPECTOR HC BASIC METABOLIC PANEL Routine 04/05/2019 Malig nant neoplasm of 10:15 AM ELEVATORS INSPECTOR urinary bladder, unspecified site (HCC) Prostate cancer (HCC) documented in this encounter Results * NOTES (04/05/2019 10:15 AM ELEVATORS INSPECTOR) Specimen Notes PER PT TEST EARLY REFERENCE LAB Specimen Performing Organization Address [facility] one Number REFERENCE LAB REFERENCE LAB See results for address. * BASIC METABOLIC PANEL (04/05/2019 10:15 AM ELEVATORS INSPECTOR) Sodium 139 137 - 147 MMOL/L [facility] MAIN LAB Potassium 4.5 3.5 - 5.1 MMOL/L [facility] Chloride 103 98 - 110 MMOL/L [facility] MAIN [facility] CO2 28 21 - 30 MMOL/L [facility] Anion Gap 8 3 - 12 [facility] Glucose 120 (H) 70 - 100 MG/DL [facility] Blood Urea 21 7 - 25 MG/DL [facility]IN [facility] Nitrogen Creatinine 1.24 0.4 - 1.24 MG/DL [facility] MAIN [facility] Calcium 9.2 8.5 - 10.6 MG/DL [facility] MAIN [facility] eGFR Non 56 (L) >60 mL/min [facility] MAIN [facility] Comment: [place] The eGFR is not validated f or use in drug dosing adjustments. Continue to use estimated creatinine clearance per dosing reference text. Please contact the Clinical Pharmacist for questions. eGFR >60 >60 mL/min [facility] MAIN LAB [place] Comment: The eGFR is not validated for use in drug dosing adjustments. Continue to use estimated creatinine clearance per dosing reference text. Please contact the Clinical Pharmacist for questions. Specimen Blood Performing Organization Address [facility] one Gerry MAIN LAB [address] [place] [address] * PROSTATIC SPECIFIC ANTIGEN-PSA (04/05/2019 10:15 AM ELEVATORS INSPECTOR) Prostatic 0.01 <6.01 NG/ML [facility] MAIN LAB Specific Comment: Antigen REFERENCE RANGES AGE PSA VALUE <50 <=1.5 50-54 <=2.0 55-59 <=3.0 60-69 <=4.0 70+ <=6.0 Specimen Blood Performing Organization Address [facility] one Number MAIN LAB [address] [place] [address] documented in this encounter Visit Diagnoses Diagnosis Prostate cancer (HCC) Malignant neoplasm of prostate Malignant neoplasm of urinary bladder, unspecified site (HCC) documented in this encounter
--- OUTSIDE RECORDS SUMMARY | 2019-05-20 17:02 | XMS REPORT | Encounter Summary ---
Author Author [facility] Organization [facility] Address Unknown Phone Unavailable Care Team Providers Care Pit Furnace Operator Name Role Phone Cory Amaro MD Unavailable [phone] Min Lindsey MD PCP Karen Aguirre RN Unavailable Unavailable Alfredo Everett MD Unavailable Jazmine Germain RN Unavailable Unavailable iKt Tian MD Unavailable Dinorah Khan RN Unavailable Unavailable Reason for Referral * Radiology Services (Routine) Referred By Contact Referred To Contact Status Reason Specialty Diagnoses / Procedures Cory Amaro MD [address] [place] [address] New Request Radiology Diagnoses Malignant neoplasm of overlapping sites of bladder (HCC) P rocedures CT ABD/PELV WO/W CONTRAST Reason for Visit * Reason Comments Bladder Cancer Encounter Details Care Team Description Date Type Department Cory Amaro MD [address] [place] [address] Malignant neoplasm of overlapping sites of bladder (HCC) (Primary Dx) 04/05/2019 Office Visit [facility] [address] [place] [address] Social History Date Tobacco Use [...] Signs Reading Time Taken Comments Vital Sign 144/72 04/05/2019 2:32 PM TRUCK PACKER Blood Pressure 90 04/05/2019 2:32 PM TRUCK PACKER Pulse - - Temperature - - Respiratory Rate - - Oxygen Saturation - - Inhaled Oxygen Concentration 92.2 kg (203 lb 3.2 oz) 04/05/2019 2:32 PM TRUCK PACKER Weight 167.6 cm (5' 6") 04/05/2019 2:32 PM TRUCK PACKER Height 32.8 04/05/2019 2:32 PM TRUCK PACKER Body Mass Index documented in this encounter [...] impairment: No documented as of this encounter Progress Notes * Cory Amaro MD - 04/05/2019 1:15 PM TRUCK PACKER Date of Service: 04/05/2019 Subjective: Leonid Kennedy Jr. is a 83 y.o. male. History of Present Illness 83-year-old white male with a history of bladder cancer status post radical cyst ectomy with ileal conduit July 2016 for pTis N0 MX urothelial cell carcinoma. He also had an incidentally discovered [place] 3+ 4P T3a prostate cancer. He retu [...] with results of CT and discuss ureteroscopy. K PACKER documented in this encounter Plan of Treatment Order Schedule Name Type Priority Associated Diag noses Expected: 10/04/2019 (Approximate), Expi res: 04/05/2020 CT ABD/PELV WO/W CONTRAST Imaging Routine Dilma gnant neoplasm of overlapping sites of bladder (HCC) Expected: 10/02/2019 (Approximate), Expi res: 04/04/2020 BASIC METABOLIC PANEL Lab Routine Malignan t neoplasm of overlapping sites of bladder (HCC) documented as of this encounter Goals Goal Patient Associated Recent Progress Patient-Stat Aut hor Goal Type Problems ed? 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, marketing support assistant Recover from illness Hospital Yes Patrick Angel, RN Note: "To heal and recover and get back to normal" documented as of this encounter Visit Diagnoses Diagnosis Malignant neoplasm of overlapping sites of bladder (HCC) - Primary Malignant neoplasm of other specified s ites of bladder documented in this encounter
--- OUTSIDE RECORDS SUMMARY | 2019-05-20 17:02 | XMS REPORT | Encounter Summary ---
Author Author [facility] Organization [facility] Address Unknown Phone Unavailable Care Team Providers Care Coal Shoveler Name Role Phone Cory Amaro MD Unavailable [phone] Min Lindsey MD PCP Karen Aguirre RN Unavailable Unavailable Alfredo Everett MD Unavailable Jazmine Germain RN Unavailable Unavailable Kit Tian MD Unavailable Dinorah Khan RN Unavailable Unavailable Encounter Details Care Team Description Date Type Department Cory Amaro MD [address] [place] [address] [phone] Gross hematuria (Primary Dx) 04/08/2019 Prep for Case The [address] [address] Social History Date Tobacco Use Types Packs/Day [...] Fruits and Vegetables Diet No Lili Hooker, grain processor Recover from illness Hospital Yes Patrick Angel, RN Note: "To heal and recover and get back to normal" documented as of this encounter Visit Diagnoses Diagnosis Gross hematuria - Primary documented in this encounter
--- OUTSIDE RECORDS SUMMARY | 2019-05-20 17:03 | XMS REPORT | Encounter Summary ---
Author Author [facility] Organization [facility] Address Unknown Phone Unavailable Care Team Providers Care Physician Anesthesiologist Name Role Phone Cory Amaro MD Unavailable [phone] Min Lindsey MD PCP Karen Aguirre RN Unavailable Unavailable Alfredo Everett MD Unavailable Jazmine Germain RN Unavailable Unavailable Kit Tian MD Unavailable Dinorah Khan RN Unavailable Unavailable Reason for Referral * Radiology Services (Routine) Referred By Contact Referred To Contact Status Reason Specialty Diagnoses / Procedures Cory Amaro MD [address] [place] [address] [address] No Auth Needed Radiology Diagnoses Malignant neoplasm of urinary bladder, unspecified site (HCC) Prostate cancer (HCC) P rocedures CT ABD/PELV W CONTRAST CT ABD/PELV WO/W CONTRAST Reason for Visit * Radiology Services (Routine) Referred By Contact Referred To Contact Status Reason Specialty Diagnoses / Procedures Cory Amaro MD [address] [place] [address] [address] No Auth Needed Radiology Diagnoses Malignant neoplasm of urinary bladder, unspecified site (HCC) Prostate cancer (HCC) P rocedures CT ABD/PELV W CONTRAST CT ABD/PELV WO/W CONTRAST Encounter Details Care Team Description Date Type Department Cory Amaro MD [address] [facility] [place] [address] [phone] 04/05/2019 [facility] [address] [address] Social History Date Tobacco Use Types Packs/Day [...] Procedure Name Priority Date/Time Associated Diag nosis CT ABD/PELV W CONTRAST Routine 04/05/2019 Maligna nt neoplasm of 12:10 PM CAR SHIFTER urinary bladder, unspecified site (HCC) Prostate cancer (HCC) POC CREATININE, RAD 04/05/2019 11:24 AM CAR SHIFTER documented in this encounter Results * CT ABD/PELV W CONTRAST (04/05/2019 12:10 PM CAR SHIFTER) Specimen Impressions Performed At 1. Prior cystoprostatectomy [...] Interface, Radiant Results - 04/05/2019 3:[address] ABDOMEN AND PELVIS Clinical Indication: Malignant [...] on 04/05/2019 1:51 PM. Performing Organization Address [facility] Ph one Number [facility] RAD RESULTS * POC CREATININE, RAD (04/05/2019 11:24 AM CAR SHIFTER) Creatinine, POC 1.3 (H) 0.4 - 1.24 MG/DL [facility] MAIN LAB Specimen Performing Organization Address [facility] Ph one Number MAIN LAB [address] [place] [address] documented in this encounter Visit Diagnoses Diagnosis Malignant neoplasm of urinary bladder, unspecified site (HCC) Prostate cancer (HCC) Malignant neoplasm of prostate documented in this encounter Administered Medications Action Date Dose Rate Site Medication Order MAR Action 04/05/2019 12:00 PM CAR SHIFTER 80 mL iohexol (OMNIPAQUE-350) 350 mg/mL Given injection 80 mL 80 mL, Intravenous, ONCE, 1 dose, Mon04/05/19 at 1200, NOTE: This is a HIGH ALERT Medication., 04/05/2019 12:00 PM CAR SHIFTER 50 mL sodium chloride PF 0.9% injection 50 mL Given 50 mL, Intravenous, ONCE, 1 dose, Mon04/05/19 at 1200, DO NOT SEND this medication unless it is requested. This med is usually available in floor stock., Intra-procedure (IR) documented in this encounter
--- OUTSIDE RECORDS SUMMARY | 2019-05-20 17:05 | XMS REPORT | Continuity of Care Document ---
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 08/01/2010 Ot 786.05 ROBERT RTNESS OF BREATH 08/01/2010 Ot V45.81 AOR TOCORONARY BYPASS 08/01/2010 Ot V58.66 PERRY G-TERM (CURRENT) USE OF ASPIRIN 08/01/2010 Ot V58.69 OTH MED,LT,CURRENT USE 11/01/2010 Ot 414.00 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, NATIV 11/01/2010 Ot 786.05 ROBERT RTNESS OF BREATH 11/01/2010 Ot V45.81 AOR TOCORONARY BYPASS 01/31/2011 Ot V45.82 PER CUTANEOUS TRANSLUM CORON ANGIOPLASTY 01/31/2011 Ot V57.89 [place] ABILITATION PROC NEC 02/09/2011 Ot 401.9 HYPE RTENSION NOS 02/09/2011 Ot 780.4 DIZZ INESS AND GIDDINESS 05/22/2011 Ot 487.1 FLU W RESP MANIFEST NEC 05/22/2011 Ot 786.2 COUGH 05/22/2011 Ot 786.52 ALESSANDRO NFUL RESPIRATION 12/07/2011 Ot 272.4 HYPE RLIPIDEMIA NEC/NOS 12/07/2011 Ot 273.8 DIS PLAS PROTEIN MET NEC 12/07/2011 Ot 275.41 HYP OCALCEMIA 12/07/2011 Ot 276.1 HYPO SMOLALITY 12/07/2011 Ot 276.8 HYPO POTASSEMIA 12/07/2011 Ot 285.9 ANEM IA NOS 12/07/2011 Ot 293.9 UNSP EC TRANSIENT MENTAL DIS IN COND CLAS 12/07/2011 Ot 401.9 HYPE RTENSION NOS 12/07/2011 Ot 414.01 COR ONARY ATHEROSCLEROSIS OF [place] CORON 12/07/2011 Ot 496 CHR AI RWAY OBSTRUCT NEC 12/07/2011 Ot 564.00 UNS PEC CONSTIPATION 12/07/2011 Ot 599.0 URIN TRACT INFECTION NOS 12/07/2011 Ot 599.70 HEM ATURIA, UNSPECIFIED 12/07/2011 Ot 600.01 HYP ERTROPHY (BENIGN) OF PROSTATE W URINA 12/07/2011 Ot 786.09 RES PIRATORY ABNORM NEC 12/07/2011 Ot 788.20 RET ENTION OF URINE NOS 12/07/2011 Ot V15.82 HIS TORY OF TOBACCO USE 12/07/2011 Ot V43.65 KNE E JOINT REPLACEMENT STATUS 12/07/2011 Ot V45.82 PER CUTANEOUS TRANSLUM CORON ANGIOPLASTY 12/07/2011 Ot V54.81 AFT ERCARE FOLLOWING JOINT REPLACEMENT 12/07/2011 Ot V57.1 PHYS ICAL THERAPY NEC 12/07/2011 Ot V57.21 ENC OUNTER FOR OCCUPATIONAL THERAPY 01/19/2012 Ot V43.65 KNE E JOINT REPLACEMENT STATUS 01/19/2012 Ot V54.81 AFT ERCARE FOLLOWING JOINT REPLACEMENT 01/19/2012 Ot V57.1 PHYS ICAL THERAPY NEC 02/10/2012 Ot 982.8 TOXI C EFF NONPETROL SOLV 02/10/2012 Ot E849.0 ACC IDENT IN HOME 02/10/2012 Ot E862.4 ACC POISN- SOLVENTS NEC 09/20/2013 ASHLY BARAHONA Ot 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 09/20/2013 ASHLY BARAHONA Ot 716.90 ARTHROPATHY NOS-UNSPEC 09/20/2013 ASHLY BARAHONA Ot 883.0 OPEN WOUND OF FINGER 09/20/2013 ASHLY BARAHONA Ot E920.8 ACC-CUTTING INSTRUM NEC 09/20/2013 ASHLY BARAHONA Ot V06.1 [id number], COMBINED [ 09/20/2013 ASHLY BARAHONA Ot V45.81 [...] 02/06/2014 Ot 599.71 02/06/2014 Ot 793.5 02/06/2014 BLAKE BOYCE MD Ot 780.4 02/06/2014 JASON KATIEWENDI Rodriguez 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 Ot 722.52 02/06/2014 YU PURDY, JAVIER A Ot 600.0 0 02/06/2014 YU PURDY, JAVIER A Ot V72.6 3 02/06/2014 YU PURDY, JAVIER A Ot V72.8 3 02/06/2014 YU PURDY, JAVIER A Ot V74.8 02/07/2014 YU PURDY, JAVIER A Ot 600.0 0 02/07/2014 YU PURDY, JAVIER A Ot V72.6 3 02/07/2014 YU PURDY, JAVIER A Ot V72.8 3 02/07/2014 YU PURDY, JAVIER A Ot V74.8 02/07/2014 BLAKE BOYCE MD Ot 272.4 HYPERLIPIDEMIA NEC/NOS 02/07/2014 BLAKE BOYCE MD Ot 401.9 HYPERTENSION NOS 02/07/2014 BLAKE BOYCE MD Ot 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 02/07/2014 BLAKE BOYCE MD Ot 414.00 CORON ATHEROSCLER NOS TYPE VESSEL, NATIV 02/07/2014 BLAKE BOYCE MD Ot 600.00 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 02/07/2014 BLAKE BOYCE MD Ot 715.90 OSTEOARTHROS NOS-UNSPEC 02/07/2014 BLAKE BOYCE MD Ot 786.59 CHEST PAIN NEC 02/07/2014 BLAKE BOYCE MD Ot V45.81 AORTOCORONARY BYPASS 02/07/2014 BLAKE BOYCE MD Ot V45.82 PERCUTANEOUS TRANSLUM CORON ANGIOPLASTY 02/11/2014 JAVIER NICHOLAS MD Ot 600.0 0 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 02/12/2014 LOUISA ARBOLEDA 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 Ot 599.70 HEMATURIA, UNSPECIFIED 02/12/2014 LOUISA ARBOLEDA 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 Ot V45.89 POSTSURGICAL STATES NEC 03/10/2014 ILENE PURDY, ROSARIO Nguyen Ot 211.3 BENIGN NEOPLASM LG BOWEL 03/10/2014 ILENE PURDY, ROSARIO Nguyen Ot 562.10 DIVERTICULOSIS COLON (W/O MENT OF HEMORR 03/17/2014 ROSARIO ODOM MD M Ot 211.3 03/17/2014 ROSARIO ODOM MD Ot 272.0 03/17/2014 ROSARIO ODOM MD Ot 41 2 03/17/2014 ROSARIO ODOM MD Ot 414.01 03/17/2014 ROSARIO ODOM MD Ot 715.36 03/17/2014 ROSARIO ODOM MD Ot V43.65 03/17/2014 ROSARIO ODOM MD Ot 211.3 BENIGN NEOPLASM LG BOWEL 03/17/2014 ROSARIO ODOM MD Ot 272.0 PURE HYPERCHOLESTEROLEM 03/17/2014 ILENE PURDY, ROSARIO M Ot 401.9 HYPERTENSION NOS 03/17/2014 ILENE PURDY, ROSARIO Nguyen Ot 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 03/17/2014 ROSARIO ODOM MD Ot 414.01 CORONARY ATHEROSCLEROSIS OF [place] CORON 03/17/2014 ROSARIO ODOM MD Ot 715.36 LOC OSTEOARTH NOS-L/LEG 03/17/2014 ROSARIO ODOM MD Ot V10.51 HX OF BLADDER MALIGNANCY 03/17/2014 ROSARIO ODOM MD Ot V43.65 KNEE JOINT REPLACEMENT STATUS 03/17/2014 ROSARIO ODOM MD Ot V45.81 AORTOCORONARY BYPASS 04/01/2014 JAVIER NICHOLAS MD Ot 185 MALIGN NEOPL PROSTATE 04/04/2014 JAVIER NICHOLAS MD Ot 596.7 BLADDER WALL HEMORRHAGE 04/04/2014 JAVIER NICHOLAS MD Ot 599.0 URIN TRACT INFECTION NOS 04/04/2014 JAVIER NICHOLAS MD Ot 788.2 0 RETENTION OF URINE NOS 04/24/2014 JAVIER NICHOLAS MD Ot 185 04/24/2014 JAVIER NICHOLAS MD Ot V72.6 3 04/24/2014 YU PURDY, JAVIER Cannon Ot V74.8 06/26/2014 Ot 331.9 06/26/2014 Ot 728.9 08/29/2014 CARLI PURDY, BLAKE Miller Ot 188.9 MAL[place] BLADDER NOS 08/29/2014 CARLI PURDY, BALKE Miller Ot 300.00 ANXIETY STATE NOS 08/29/2014 CARLI PURDY, BLAKE Miller Ot 401.9 HYPERTENSION NOS 08/29/2014 CARLI PURDY, BLAKE Miller Ot 414.00 CORON ATHEROSCLER NOS TYPE VESSEL, NATIV 08/29/2014 BLAKE BOYCE MD Ot 530.5 DYSKINESIA OF ESOPHAGUS 08/29/2014 CARLI PURDY, BLAKE Miller Ot 530.81 ESOPHAGEAL REFLUX 08/29/2014 CARLI PURDY, BLAKE Miller Ot V45.81 AORTOCORONARY BYPASS 08/29/2014 BLAKE BOYCE MD Ot V45.82 PERCUTANEOUS TRANSLUM CORON ANGIOPLASTY 09/04/2014 YU PURDY, JAVIER Cannon Ot 562.1 0 09/04/2014 YU PURDY, JAVIER A Ot 599.7 0 09/04/2014 YU PURDY, JAVIER A Ot 721.3 09/04/2014 YU PURDY, JAVIER A Ot 733.9 0 09/04/2014 YU PURDY, JAVIER A Ot 785.6 09/22/2014 UY PURDY, JAVIER A Ot 562.1 0 09/22/2014 YU PURDY, JAVIER Cannon Ot 599.7 0 09/22/2014 YU PURDY, JAVIER Cannon Ot 721.3 09/22/2014 YU PURDY, JAVIER A Ot 733.9 0 09/22/2014 YU PURDY, JAVIER A Ot 785.6 11/17/2014 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 Ot 722.52 11/17/2014 YU PURDY, JAVIER Cannon Ot 600.0 0 11/17/2014 YU PURDY, JAVIER A Ot V72.6 3 11/17/2014 YU PURDY, JAVIER A Ot V72.8 3 11/17/2014 YU PURDY, JAVIER Cannon Ot V74.8 11/28/2014 LOUISA ARBOLEDA 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 Ot 882 .0 OPEN WOUND OF HAND 11/28/2014 LOUISA ARBOLEDA 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 Ot 883 .0 OPEN WOUND OF FINGER 11/28/2014 LOUISA ARBOLEDA 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 Ot E000.8 OTHER EXTERNAL CAUSE STATUS 11/28/2014 LOUISA ARBOLEDA 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 Ot E849.0 ACCIDENT IN HOME 11/28/2014 LOUISA ARBOLEDA 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 Ot E919.4 WOODWORKING MACHINE ACC 11/28/2014 LOUISA ARBOLEDA 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 Ot V06 .1 [id number], COMBINED [ 03/04/2015 YU PURDY, JAVIER Cannon [...] BLAKE Miller Ot 780.4 06/16/2015 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 Ot 722.52 06/16/2015 YU PURDY, JAVIER Cannon Ot 600.0 0 06/16/2015 YU PURDY, JAVIER Cannon Ot V72.6 3 06/16/2015 YU PURDY, JAVIER Cannon Ot V72.8 3 06/16/2015 YU PURDY, JAVIER A Ot V74.8 06/16/2015 ILENE PURDY, ROSARIO M Ot V72.84 06/16/2015 ILENE PURDY, ROSARIO M Ot 569.9 06/16/2015 ILENE PURDY, ROSARIO M Ot V72.83 06/16/2015 ILENE PURDY, ROSARIO Nguyen Ot V74.8 06/16/2015 YU PURDY, JAVIER Cannon Ot 185 06/16/2015 YU PURDY, JAVIER Cannon Ot V72.6 3 06/16/2015 YU PURDY, JAVIER Cannon Ot V74.8 06/16/2015 Ot 331.9 06/16/2015 Ot 728.9 06/16/2015 YU PURDY, JAVIER A Ot 562.1 0 06/16/2015 YU PURDY, JAVIER A Ot 599.7 0 06/16/2015 YU PURDY, JAVIER Cannon Ot 721.3 06/16/2015 YU PURDY, JAVIER Cannon Ot 733.9 0 06/16/2015 YU PURDY, JAVIER Cannon Ot 785.6 [...] BLAKE Miller Ot 780.4 06/16/2015 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 Michael CROCKERN Ot 722.52 06/16/2015 YU PURDY, JAVIER A Ot 600.0 0 06/16/2015 YU PURDY, JAVIER A Ot V72.6 3 06/16/2015 YU PURDY, JAVIER A Ot V72.8 3 06/16/2015 YU PURDY, JAVIER A Ot V74.8 06/16/2015 ILENE PURDY, ROSARIO M Ot V72.84 06/16/2015 ILENE PURDY, ROSARIO M Ot 569.9 06/16/2015 ILENE PURDY, ROSARIO M Ot V72.83 06/16/2015 ILENE PURDY, ROSARIO M Ot V74.8 06/16/2015 YU PURDY, JAVIER A Ot 185 06/16/2015 YU PURDY, JAVIER A Ot V72.6 3 06/16/2015 YU PURDY, JAVIRE A Ot V74.8 06/16/2015 Ot 331.9 06/16/2015 Ot 728.9 06/16/2015 YU PURDY, JAVIER A Ot 562.1 0 06/16/2015 YU PURDY, JAVIER A Ot 599.7 0 06/16/2015 YU PURDY, JAVIER A Ot 721.3 06/16/2015 YU PURDY, JAVIER A Ot 733.9 0 06/16/2015 YU PURDY, JAVIER A Ot 785.6 06/16/2015 YU PURDY, JAVIER A Ot R31.9 06/22/2015 CARLI PURDY, BLAKE Miller Ot M46.06 07/02/2015 LIENE PURDY, ROSARIO Nguyen Ot K63.5 POLYP OF [...] APRN Ot 722.52 07/06/2015 YU PURDY, JAVIER Cannon Ot 600.0 0 07/06/2015 YU PURDY, JAVIER Cannon Ot V72.6 3 07/06/2015 YU PURDY, JAVIER Cannon Ot V72.8 3 07/06/2015 YU PURDY, JAVIER Cannon Ot V74.8 07/06/2015 ILENE PURDY, ROSARIO Nguyen Ot V72.84 07/06/2015 ILENE PURDY, ROSARIO Nguyen Ot 569.9 07/06/2015 ILENE PURDY, ROSARIO M Ot V72.83 07/06/2015 ILENE PURDY, ROSARIO M Ot V74.8 07/06/2015 YU PURDY, JAVIER A Ot 185 07/06/2015 YU PURDY, JAVIER A Ot V72.6 3 07/06/2015 YU PURDY, JAVIER Cannon Ot V74.8 07/06/2015 Ot 331.9 07/06/2015 Ot 728.9 07/06/2015 YU PURDY, JAVIER Cannon Ot 562.1 0 07/06/2015 YU PURDY, JAVIER Cannon Ot 599.7 0 07/06/2015 YU PURDY, JAVIER Cannon Ot 721.3 07/06/2015 YU PURDY, JAVIER A Ot 733.9 0 07/06/2015 YU PURDY, JAVIER A Ot 785.6 07/06/2015 YU PURDY, JAVIER A Ot R31.9 07/06/2015 CARLI PURDY, BLAKE D Ot M46.06 07/06/2015 CARLI PURDY, BLAKE D Ot M46.06 07/06/2015 CARLI PURDY, BLAKE D Ot M54.5 07/06/2015 CARLI PURDY, BLAKE D Ot 780.4 07/06/2015 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 APRN Ot 722.52 07/06/2015 YU PURDY, JAVIER A Ot 600.0 0 07/06/2015 YU PURDY, JAVIER A Ot V72.6 3 07/06/2015 YU PURDY, JAVIER A Ot V72.8 3 07/06/2015 YU PURDY, JAVIER A Ot V74.8 07/06/2015 ILENE PURDY, ROSARIO Nguyen Ot V72.84 07/06/2015 ILENE PURDY, ROSARIO Nguyen Ot 569.9 07/06/2015 ILENE PURDY, ROSARIO M Ot V72.83 07/06/2015 ILENE PURDY, ROSARIO M Ot V74.8 07/06/2015 YU PURDY, JAVIER A Ot 185 07/06/2015 YU PURDY, JAVIER A Ot V72.6 3 07/06/2015 YU PURDY, JAVIER A Ot V74.8 07/06/2015 Ot 331.9 07/06/2015 Ot 728.9 07/06/2015 YU PURDY, JAVIER A Ot 562.1 0 07/06/2015 YU PURDY, JAVIER A Ot 599.7 0 07/06/2015 YU PURDY, JAVIER A Ot 721.3 07/06/2015 YU PURDY, JAVIER A Ot 733.9 0 07/06/2015 YU PURDY, JAVIER A Ot 785.6 07/06/2015 YU PURDY, JAVIER A Ot R31.9 07/06/2015 CARLI PURDY, BLAKE D Ot M46.06 07/06/2015 ILENE PURDY, ROSARIO Nguyen Ot K62.1 RECTAL POLYP 07/06/2015 ILENE PURDY, ROSARIO Nguyen Ot K63.5 POLYP OF COLON 07/07/2015 ILENE PURDY, ROSARIO Nguyen Ot K62.1 07/07/2015 ILENE PURDY, ROSARIO Nguyen Ot K63.5 07/07/2015 CARLI PURDY, BLAKE Miller Ot M46.06 07/10/2015 CARLI PURDY, BLAKE Miller Ot M46.06 SPINAL ENTHESOPATHY, LUMBAR REGION 07/17/2015 CARLI PURDY, BLAKE Miller Ot M54.5 LOW BACK PAIN 07/17/2015 Ot 272.4 HYPE RLIPIDEMIA NEC/NOS 07/17/2015 Ot 401.9 HYPE RTENSION NOS 07/17/2015 Ot 414.01 COR ONARY ATHEROSCLEROSIS OF [place] CORON 07/17/2015 Ot 433.10 CAR OTID ARTERY OCCLUSION W O CEREBRAL IN 07/17/2015 Ot 401.9 HYPE RTENSION NOS 07/17/2015 Ot 433.10 CAR OTID ARTERY OCCLUSION W O CEREBRAL IN 07/17/2015 Ot 401.9 HYPE RTENSION NOS 07/17/2015 Ot 414.9 CHR ISCHEMIC HRT DIS NOS 07/17/2015 Ot 786.05 ROBERT RTNESS OF BREATH 07/17/[address] PAIN NOS 07/17/2015 Ot V58.63 PERRY G- TERM(CURRENT)USE OF ANTIPLATELET/AN 07/17/2015 Ot V58.66 PERRY G-TERM (CURRENT) USE OF ASPIRIN 07/17/2015 Ot V58.69 OT MED,LT,CURRENT USE 07/17/[address] PAIN NOS 07/17/2015 Ot 959.9 INJU RY-SITE NOS 07/17/2015 Ot E000.8 OT ER EXTERNAL CAUSE STATUS 07/17/2015 Ot E849.0 ACC IDENT IN HOME 07/17/2015 Ot E928.9 ACC IDENT NOS 07/17/2015 Ot 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, ACQUIRED 07/17/2015 Ot 783.21 LOS S OF WEIGHT 07/17/2015 Ot 562.10 DIV ERTICULOSIS COLON (W/O MENT OF HEMORR 07/17/2015 Ot 599.71 RAGINI SS HEMATURIA 07/17/2015 Ot 793.5 NOSP (ABN) FINDINGS ON RADIOLOGICAL OT 07/17/2015 CARLI PURDY, BLAKE Miller Ot 780.4 DIZZINESS AND GIDDINESS 07/17/2015 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 APRN Ot 722.52 LUMB/LUMBOSAC DISC DEGEN 07/17/2015 JAVIER NICHOLAS MD Ot 600.0 0 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 07/17/2015 JAVIER NICHOLAS MD Ot V72.6 3 PRE-PROCEDURAL LABORATORY EXAMINATION 07/17/2015 JAVIER NICHOLAS MD Ot V72.8 3 EXAM PRE-OPERATIVE NEC 07/17/2015 JAVIER NICHOLAS MD Ot V74.8 SCREEN-BACTERIAL DIS NEC 07/17/2015 ILENE PURDY, ROSARIO Nguyen Ot V72.84 EXAM PRE-OPERATIVE NOS 07/17/2015 ILENE PURDY, ROSARIO Nguyen Ot 569.9 INTESTINAL DISORDER NOS 07/17/2015 ILENE PURDY, ROSARIO Nguyen Ot V72.83 EXAM PRE-OPERATIVE NEC 07/17/2015 ILENE PURDY, ROSARIO Nguyen Ot V74.8 SCREEN-BACTERIAL DIS NEC 07/17/2015 JAVIER NICHOLAS MD Ot 185 MALIGN NEOPL PROSTATE 07/17/2015 JAVIER NICHOLAS MD Ot V72.6 3 PRE-PROCEDURAL LABORATORY EXAMINATION 07/17/2015 JAVIER NICHOLAS MD Ot V74.8 SCREEN-BACTERIAL DIS NEC 07/17/2015 Ot 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 07/17/2015 Ot 728.9 MUSC LE/LIGAMENT DIS NOS 07/17/2015 JAVIER NICHOLAS MD Ot 562.1 0 DIVERTICULOSIS COLON (W/O MENT OF HEMORR 07/17/2015 JAVIER NICHOLAS MD Ot 599.7 0 HEMATURIA, UNSPECIFIED 07/17/2015 JAVIER NICHOLAS MD Ot 721.3 LUMBOSACRAL SPONDYLOSIS 07/17/2015 JAVIER NICHOLAS MD Ot 733.9 0 BONE CARTILAGE DIS NOS 07/17/2015 JAVIER NICHOLAS MD Ot 785.6 ENLARGEMENT LYMPH NODES 07/17/2015 JAVIER NICHOLAS MD Ot R31.9 HEMATURIA, UNSPECIFIED 07/17/2015 CARLI PURDY, BLAKE Miller Ot M46.06 SPINAL ENTHESOPATHY, LUMBAR REGION 07/17/2015 CARLI PURDY, BLAKE Miller Ot M46.06 SPINAL ENTHESOPATHY, LUMBAR REGION 07/17/2015 CARLI PURDY, BLAKE Miller Ot M54.5 LOW BACK PAIN 07/17/2015 CARLI PURDY, BLAKE Miller Ot M54.5 LOW BACK PAIN 07/21/2015 CARLI PURDY, BLAKE Miller Ot M54.5 LOW BACK PAIN 07/29/2015 CARLI PURDY, BLAKE Miller Ot M46.06 SPINAL ENTHESOPATHY, LUMBAR REGION 07/29/2015 CARLI PURDY, BLAKE Miller Ot M46.06 SPINAL ENTHESOPATHY, LUMBAR REGION 07/31/2015 Ot 272.4 HYPE RLIPIDEMIA NEC/NOS 07/31/2015 Ot 401.9 HYPE RTENSION NOS 07/31/2015 Ot 414.01 COR ONARY ATHEROSCLEROSIS OF [place] CORON 07/31/2015 Ot 433.10 CAR OTID ARTERY OCCLUSION W O CEREBRAL IN 07/31/2015 Ot 401.9 HYPE RTENSION NOS 07/31/2015 Ot 433.10 CAR OTID ARTERY OCCLUSION W O CEREBRAL IN 07/31/2015 Ot 401.9 HYPE RTENSION NOS 07/31/2015 Ot 414.9 CHR ISCHEMIC HRT DIS NOS 07/31/2015 Ot 786.05 ROBERT RTNESS OF BREATH 07/31/[address] PAIN NOS 07/31/2015 Ot V58.63 PERRY G- TERM(CURRENT)USE OF ANTIPLATELET/AN 07/31/2015 Ot V58.66 PERRY G-TERM (CURRENT) USE OF ASPIRIN 07/31/2015 Ot V58.69 OTH MED,LT,CURRENT USE 07/31/[address] PAIN NOS 07/31/2015 Ot 959.9 INJU RY-SITE NOS 07/31/2015 Ot E000.8 OT ER EXTERNAL CAUSE STATUS 07/31/2015 Ot E849.0 ACC IDENT IN HOME 07/31/2015 Ot E928.9 ACC IDENT NOS 07/31/2015 Ot 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, ACQUIRED 07/31/2015 Ot 783.21 LOS S OF WEIGHT 07/31/2015 Ot 562.10 DIV ERTICULOSIS COLON (W/O MENT OF HEMORR 07/31/2015 Ot 599.71 RAGINI SS HEMATURIA 07/31/2015 Ot 793.5 NOSP (ABN) FINDINGS ON RADIOLOGICAL OT 07/31/2015 CARLI PURDY, BLAKE Miller Ot 780.4 DIZZINESS AND GIDDINESS 07/31/2015 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 N 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 Ot 722.52 LUMB/LUMBOSAC DISC DEGEN 07/31/2015 JAVIER NICHOLAS MD Ot 600.0 0 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 07/31/2015 JAVIER NICHOLAS MD Ot V72.6 3 PRE-PROCEDURAL LABORATORY EXAMINATION 07/31/2015 JAVIER NICHOLAS MD Ot V72.8 3 EXAM PRE-OPERATIVE NEC 07/31/2015 JAVIER NICHOLAS MD Ot V74.8 SCREEN-BACTERIAL DIS NEC 07/31/2015 ILENE PURDY, ROSARIO Nguyen Ot V72.84 EXAM PRE-OPERATIVE NOS 07/31/2015 ILENE PURDY, ROSARIO Nguyen Ot 569.9 INTESTINAL DISORDER NOS 07/31/2015 ILENE PURDY, ROSARIO Nguyen Ot V72.83 EXAM PRE-OPERATIVE NEC 07/31/2015 ILENE PURDY, ROSARIO Nguyen Ot V74.8 SCREEN-BACTERIAL DIS NEC 07/31/2015 JAVIER NICHOLAS MD Ot 185 MALIGN NEOPL PROSTATE 07/31/2015 JAVIER NICHOLAS MD Ot V72.6 3 PRE-PROCEDURAL LABORATORY EXAMINATION 07/31/2015 JAVIER NICHOLAS MD Ot V74.8 SCREEN-BACTERIAL DIS NEC 07/31/2015 Ot 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 07/31/2015 Ot 728.9 MUSC LE/LIGAMENT DIS NOS 07/31/2015 JAVIER NICHOLAS MD Ot 562.1 0 DIVERTICULOSIS COLON (W/O MENT OF HEMORR 07/31/2015 JAVIER NICHOLAS MD Ot 599.7 0 HEMATURIA, UNSPECIFIED 07/31/2015 JAVIER NICHOLAS MD Ot 721.3 LUMBOSACRAL SPONDYLOSIS 07/31/2015 JAVIER NICHOLAS MD Ot 733.9 0 BONE CARTILAGE DIS NOS 07/31/2015 JAVIER NICHOLAS MD Ot 785.6 ENLARGEMENT LYMPH NODES 07/31/2015 JAVIER NICHOLAS MD Ot R31.9 HEMATURIA, UNSPECIFIED 07/31/2015 CARLI PURDY, BLAKE Miller Ot M46.06 SPINAL ENTHESOPATHY, LUMBAR REGION 07/31/2015 BLAKE BOYCE MD Ot M46.06 SPINAL ENTHESOPATHY, LUMBAR REGION 07/31/2015 JOHN PURDY, TAVIA Miller Ot I45.10 UNSPECIFIED RIGHT BUNDLE-BRANCH BLOCK 07/31/2015 TAVIA LOPEZ MD Ot I51.7 CARDIOMEGALY 07/31/2015 TAVIA LOPEZ MD Ot R07.2 PRECORDIAL PAIN 07/31/2015 Ot 272.4 HYPE RLIPIDEMIA NEC/NOS 07/31/2015 Ot 401.9 HYPE RTENSION NOS 07/31/2015 Ot 414.01 COR ONARY ATHEROSCLEROSIS OF [place] CORON 07/31/2015 Ot 433.10 CAR OTID ARTERY OCCLUSION W O CEREBRAL IN 07/31/2015 Ot 401.9 HYPE RTENSION NOS 07/31/2015 Ot 433.10 CAR OTID ARTERY OCCLUSION W O CEREBRAL IN 07/31/2015 Ot 401.9 HYPE RTENSION NOS 07/31/2015 Ot 414.9 CHR ISCHEMIC HRT DIS NOS 07/31/2015 Ot 786.05 ROBERT RTNESS OF BREATH 07/31/[address] PAIN NOS 07/31/2015 Ot V58.63 PERRY G- TERM(CURRENT)USE OF ANTIPLATELET/AN 07/31/2015 Ot V58.66 PERRY G-TERM (CURRENT) USE OF ASPIRIN 07/31/2015 Ot V58.69 OTH MED,LT,CURRENT USE 07/31/[address] PAIN NOS 07/31/2015 Ot 959.9 INJU RY-SITE NOS 07/31/2015 Ot E000.8 OTH ER EXTERNAL CAUSE STATUS 07/31/2015 Ot E849.0 ACC IDENT IN HOME 07/31/2015 Ot E928.9 ACC IDENT NOS 07/31/2015 Ot 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, ACQUIRED 07/31/2015 Ot 783.21 LOS S OF WEIGHT 07/31/2015 Ot 562.10 DIV ERTICULOSIS COLON (W/O MENT OF HEMORR 07/31/2015 Ot 599.71 RAGINI SS HEMATURIA 07/31/2015 Ot 793.5 NOSP (ABN) FINDINGS ON RADIOLOGICAL OT 07/31/2015 CARLI PURDY, BLAKE Miller Ot 780.4 DIZZINESS AND GIDDINESS 07/31/2015 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 N 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 Ot 722.52 LUMB/LUMBOSAC DISC DEGEN 07/31/2015 YU PURDY, JAVIER Cannon Ot 600.0 0 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 07/31/2015 YU PURDY, JAVIER Cannon Ot V72.6 3 PRE-PROCEDURAL LABORATORY EXAMINATION 07/31/2015 YU PURDY, JAVIER Cannon Ot V72.8 3 EXAM PRE-OPERATIVE NEC 07/31/2015 YU PURDY, JAVIER Cannon Ot V74.8 SCREEN-BACTERIAL DIS NEC 07/31/2015 ILENE PURDY, ROSARIO Nguyen Ot V72.84 EXAM PRE-OPERATIVE NOS 07/31/2015 ILENE PURDY, ROSARIO Nguyen Ot 569.9 INTESTINAL DISORDER NOS 07/31/2015 ILENE PURDY, ROSARIO M Ot V72.83 EXAM PRE-OPERATIVE NEC 07/31/2015 ILENE PURDY, ROSARIO Nguyen Ot V74.8 SCREEN-BACTERIAL DIS NEC 07/31/2015 JAVIER NICHOLAS MD Ot 185 MALIGN NEOPL PROSTATE 07/31/2015 JAVIER NICHOLAS MD Ot V72.6 3 PRE-PROCEDURAL LABORATORY EXAMINATION 07/31/2015 JAVIER NICHOLAS MD Ot V74.8 SCREEN-BACTERIAL DIS NEC 07/31/2015 Ot 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 07/31/2015 Ot 728.9 MUSC LE/LIGAMENT DIS NOS 07/31/2015 YU PURDY, JAVIER Cannon Ot 562.1 0 DIVERTICULOSIS COLON (W/O MENT OF HEMORR 07/31/2015 JAVIER NICHOLAS MD Ot 599.7 0 HEMATURIA, UNSPECIFIED 07/31/2015 JAVIER NICHOLAS MD Ot 721.3 LUMBOSACRAL SPONDYLOSIS 07/31/2015 JAVIER NICHOLAS MD Ot 733.9 0 BONE CARTILAGE DIS NOS 07/31/2015 JAVIER NICHOLAS MD Ot 785.6 ENLARGEMENT LYMPH NODES 07/31/2015 JAVIER NICHOLAS MD Ot R31.9 HEMATURIA, UNSPECIFIED 07/31/2015 CARLI PURDY, BLAKE Miller Ot M46.06 SPINAL ENTHESOPATHY, LUMBAR REGION 07/31/2015 CARLI PURDY, BLAKE Miller Ot M46.06 SPINAL ENTHESOPATHY, LUMBAR REGION 07/31/2015 CARLI PURDY, BLAKE Miller Ot M46.06 SPINAL ENTHESOPATHY, LUMBAR REGION 08/02/2015 JOHN PURDY, TAVIA Miller Ot I45.10 UNSPECIFIED RIGHT BUNDLE-BRANCH BLOCK 08/02/2015 TAVIA LOPEZ MD D Ot I51.7 CARDIOMEGALY 08/02/2015 JOHN PURDY, TAVIA Miller Ot R07.2 PRECORDIAL PAIN 09/07/2015 MEADE DO, RON L Ot R06.0 0 DYSPNEA, UNSPECIFIED 09/07/2015 MEADE DO, RON L Ot 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 09/09/2015 MEADE DO, RON L Ot R06.0 0 DYSPNEA, UNSPECIFIED 09/09/2015 MEADE DO, RON L Ot 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 09/15/2015 CHELLY PURDY, YAW Nuñez Ot N39.41 URGE INCONTINENCE 09/15/2015 CHELLY PURDY, YAW Nuñez Ot Z53.21 PROC/TRTMT NOT CRD OUT D/T PT LV BEF SEE 09/15/2015 YAW SPAULDING MD Ot Z98.89 OTHER SPECIFIED POSTPROCEDURAL STATES 09/16/2015 YAW SPAULDING MD T Ot N39.41 URGE INCONTINENCE 09/16/2015 YAW SPAULDING MD T Ot Z53.21 PROC/TRTMT NOT CRD OUT D/T PT LV BEF SEE 09/16/2015 YAW SPAULDING MD T Ot Z98.89 OTHER SPECIFIED POSTPROCEDURAL STATES 09/17/2015 BASHIR KEARNEY MD Ot I10 ESSENTIAL (PRIMARY) HYPERTENSION 09/17/2015 BASHIR KEARNEY MD Ot I25.10 ATHSCL HEART DISEASE OF [place] CORONARY 09/17/2015 CAIO PURDY, BASHIR Mauro Ot R06.02 SHORTNESS OF BREATH 09/17/2015 BASHIR KEARNEY MD Ot R42 DIZZINESS AND GIDDINESS 10/08/2015 DEVORA PURDY, TASIA Nguyen Ot C67.9 MALIGNANT NEOPLASM OF [place], UNSPECIFI 10/08/2015 DEVORA PURDY, TASIA Nguyen Ot C67.9 MALIGNANT NEOPLASM OF [place], UNSPECIFI 10/13/2015 DEVORA PURDY, TASIA Nguyen Ot C67.9 MALIGNANT NEOPLASM OF [place], UNSPECIFI 10/13/2015 BASHIR KEARNEY MD Ot I10 ESSENTIAL (PRIMARY) HYPERTENSION 10/13/2015 BASHIR KEARNEY MD Ot I25.10 ATHSCL HEART DISEASE OF [place] CORONARY 10/13/2015 CAIO PURDY, BASHIR Mauro Ot R06.02 SHORTNESS OF BREATH 10/13/2015 CAIO PURDY, BASHIR Mauro Ot R42 DIZZINESS AND GIDDINESS 10/22/2015 CAIO PURDY, BASHIR Mauro Ot I10 ESSENTIAL (PRIMARY) HYPERTENSION 10/22/2015 CAIO PURDY, BASHIR Mauro Ot I25.10 ATHSCL HEART DISEASE OF [place] CORONARY 10/22/2015 CAIO PURDY, BASHIR Mauro Ot R06.02 SHORTNESS OF BREATH 10/22/2015 CAIO PURDY, BASHIR Mauro Ot R42 DIZZINESS AND GIDDINESS 11/13/2015 DEVORA PURDY, TASIA Nguyen Ot C67.9 MALIGNANT NEOPLASM OF [place], UNSPECIFI 11/24/2015 DEVORA PURDY, TASIA Nguyen Ot C67.9 MALIGNANT NEOPLASM OF [place], UNSPECIFI 02/11/2016 Ot 401.9 HYPE RTENSION NOS 02/11/2016 Ot 414.9 CHR ISCHEMIC HRT DIS NOS 02/11/2016 Ot 786.05 ROBERT RTNESS OF BREATH 02/11/[address] PAIN NOS 02/11/2016 Ot V58.63 PERRY G- TERM(CURRENT)USE OF ANTIPLATELET/AN 02/11/2016 Ot V58.66 PERRY G-TERM (CURRENT) USE OF ASPIRIN 02/11/2016 Ot V58.69 OTH MED,LT,CURRENT USE 02/11/[address] PAIN NOS 02/11/2016 Ot 959.9 INJU RY-SITE NOS 02/11/2016 Ot E000.8 OT ER EXTERNAL CAUSE STATUS 02/11/2016 Ot E849.0 ACC IDENT IN HOME 02/11/2016 Ot E928.9 ACC IDENT NOS 02/11/2016 Ot 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, ACQUIRED 02/11/2016 Ot 783.21 LOS S OF WEIGHT 02/11/2016 Ot 562.10 DIV ERTICULOSIS COLON (W/O MENT OF HEMORR 02/11/2016 Ot 599.71 RAGINI SS HEMATURIA 02/11/2016 Ot 793.5 NOSP (ABN) FINDINGS ON RADIOLOGICAL OT 02/11/2016 CARLI PURDY, BLAKE Miller Ot 780.4 DIZZINESS AND GIDDINESS 02/11/2016 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 Ot 722.52 LUMB/LUMBOSAC DISC DEGEN 02/11/2016 JAVIER NICHOLAS MD Ot 600.0 0 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 02/11/2016 JAVIER NICHOLAS MD Ot V72.6 3 PRE-PROCEDURAL LABORATORY EXAMINATION 02/11/2016 JAVIER NICHOLAS MD Ot V72.8 3 EXAM PRE-OPERATIVE NEC 02/11/2016 JAVIER NICHOLAS MD Ot V74.8 SCREEN-BACTERIAL DIS NEC 02/11/2016 ILENE PURDY, ROSARIO Nguyen Ot V72.84 EXAM PRE-OPERATIVE NOS 02/11/2016 ILENE PURDY, ROSARIO Nguyen Ot 569.9 INTESTINAL DISORDER NOS 02/11/2016 ILENE PURDY, ROSARIO Nguyen Ot V72.83 EXAM PRE-OPERATIVE NEC 02/11/2016 ILENE PURDY, ROSARIO Nguyen Ot V74.8 SCREEN-BACTERIAL DIS NEC 02/11/2016 JAVIER NICHOLAS MD Ot 185 MALIGN NEOPL PROSTATE 02/11/2016 JAVIER NICHOLAS MD Ot V72.6 3 PRE-PROCEDURAL LABORATORY EXAMINATION 02/11/2016 JAVIER NICHOLAS MD Ot V74.8 SCREEN-BACTERIAL DIS NEC 02/11/2016 Ot 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 02/11/2016 Ot 728.9 MUSC LE/LIGAMENT DIS NOS 02/11/2016 JAVIER NICHOLAS MD Ot 562.1 0 DIVERTICULOSIS COLON (W/O MENT OF HEMORR 02/11/2016 JAVIER NICHOLAS MD Ot 599.7 0 HEMATURIA, UNSPECIFIED 02/11/2016 JAVIER NICHOLAS MD Ot 721.3 LUMBOSACRAL SPONDYLOSIS 02/11/2016 JAVIER NICHOLAS MD Ot 733.9 0 BONE CARTILAGE DIS NOS 02/11/2016 JAVIER NICHOLAS MD Ot 785.6 ENLARGEMENT LYMPH NODES 02/11/2016 JAVIER NICHOLAS MD Ot R31.9 HEMATURIA, UNSPECIFIED 02/11/2016 CARLI PURDY, BLAKE Miller Ot M46.06 SPINAL ENTHESOPATHY, LUMBAR REGION 02/11/2016 CARLI PURDY, BLAKE Miller Ot M46.06 [...] C67.9 MALIGNANT NEOPLASM OF BLADDER, UNSPECIFI 02/11/2016 GRISSOM DC, AMANDA J Ot M54.5 LOW BACK PAIN 02/12/2016 GRISSOM DC, AMANDA J Ot M54.5 LOW BACK PAIN 02/17/2016 GRISSOM DC, AMANDA J Ot M54.5 LOW BACK PAIN 03/04/2016 GRISSOM DC, AMANDA J Ot M54.5 LOW BACK PAIN 03/15/2016 GRISSOM DC, AMANDA J Ot M54.5 LOW BACK PAIN 04/07/2016 DEVORA PURDY, TASIA Nguyen Ot C67.9 MALIGNANT NEOPLASM OF BLADDER, UNSPECIFI 04/08/2016 DEVORA PURDY, TASIA Nguyen Ot C67.9 MALIGNANT NEOPLASM OF BLADDER, UNSPECIFI 05/02/2016 DEVORA PURDY, TASIA Nguyen Ot C67.9 MALIGNANT NEOPLASM OF BLADDER, UNSPECIFI 05/19/2016 DEVORA PURDY, TASIA Nguyen Ot C67.9 MALIGNANT NEOPLASM OF BLAD[place], UNSPECIFI 06/07/2016 YULIET PETER MD Ot E78 .5 HYPERLIPIDEMIA, UNSPECIFIED 06/07/2016 YULIET PETER MD Ot I25.10 ATHSCL HEART DISEASE OF [place] CORONARY 06/07/2016 YULIET PETER MD Ot N28 .9 DISORDER OF KIDNEY AND URETER, UNSPECIFI 06/07/2016 YULIET PETER MD Ot R07 .9 CHEST PAIN, UNSPECIFIED 06/07/2016 YULIET PETER MD Ot Z79.899 OTHER ALF (CURRENT) DRUG THERAPY 06/07/2016 YULIET PETER MD Ot Z85.51 PERSONAL HISTORY OF MALIGNANT NEOPLASM O 06/07/2016 YULIET PETER MD Ot Z87.891 PERSONAL HISTORY OF NICOTINE DEPENDENCE 06/07/2016 YULIET PETER MD Ot Z95 .1 PRESENCE OF AORTOCORONARY BYPASS GRAFT 06/07/2016 YULIET PETER MD Ot Z95 .5 PRESENCE OF CORONARY ANGIOPLASTY IMPLANT 08/20/2016 ASHLY BARAHONA Ot I25.10 ATHSCL HEART DISEASE OF [place] CORONARY 08/20/2016 ASHLY BARAHONA Ot R22.41 LOCALIZED SWELLING, MASS AND LUMP, RIGHT 08/20/2016 ASHLY BARAHONA Ot R60.0 LOCALIZED EDEMA 08/20/2016 ASHLY BARAHONA Ot Z79.82 ALF (CURRENT) USE OF ASPIRIN 08/20/2016 ASHLY BARAHONA Ot Z79.899 OTHER CHAIN PEGGER (CURRENT) DRUG THERAPY 08/20/2016 ASHLY BARAHONA Ot Z90.6 ACQUIRED ABSENCE OF OTHER PARTS OF URINA 08/20/2016 ASHLY BARAHONA Ot Z98.890 OTHER SPECIFIED POSTPROCEDURAL STATES 08/29/2016 YULIET PETER MD Ot E78.00 PURE HYPERCHOLESTEROLEMIA, UNSPECIFIED 08/29/2016 YULIET PETER MD Ot I25.10 ATHSCL HEART DISEASE OF [place] CORONARY 08/29/2016 YULIET PETER MD Ot I25 .2 OLD MYOCARDIAL INFARCTION 08/29/2016 YULIET PETER MD Ot R42 DIZZINESS AND GIDDINESS 08/29/2016 YULIET PETER MD Ot Z79.82 ALF (CURRENT) USE OF ASPIRIN 08/29/2016 YULIET PETER [...] LOCALIZED EDEMA 08/30/2016 ASHLY BARAHONA Ot Z79.82 CHAIN PEGGER (CURRENT) USE OF ASPIRIN 08/30/2016 ASHLY BAARHONA Ot Z79.899 OTHER ALF (CURRENT) DRUG THERAPY 08/30/2016 ASHLY BARAHONA Ot Z90.6 ACQUIRED ABSENCE OF OTHER PARTS OF URINA 08/30/2016 ASHLY BARAHONA Ot Z98.890 OTHER SPECIFIED POSTPROCEDURAL STATES 08/31/2016 YULIET PETER MD Ot E78.00 PURE HYPERCHOLESTEROLEMIA, UNSPECIFIED 08/31/2016 YULIET PETER MD Ot I25.10 ATHSCL HEART DISEASE OF [place] CORONARY 08/31/2016 YULIET PETER MD Ot I25 .2 OLD MYOCARDIAL INFARCTION 08/31/2016 YULIET PETER MD Ot R42 DIZZINESS AND GIDDINESS 08/31/2016 YULIET PETER MD Ot Z79.82 ALF (CURRENT) USE OF ASPIRIN 08/31/2016 YULIET PETER MD Ot Z85.46 PERSONAL HISTORY OF MALIGNANT NEOPLASM O 08/31/2016 YULIET PETER MD Ot Z85.51 PERSONAL HISTORY OF MALIGNANT NEOPLASM O 08/31/2016 YULIET PETER MD Ot Z87.891 PERSONAL HISTORY OF NICOTINE DEPENDENCE 12/14/2016 CARLI PURDY, BLAKE Miller Ot E04.1 NONTOXIC SINGLE THYROID NODULE 01/02/2017 CARLI PURDY, BLAKE Miller Ot E04.1 NONTOXIC SINGLE THYROID NODULE 01/20/2017 CARLI PURDY, BLAKE Miller Ot E04.1 NONTOXIC SINGLE THYROID NODULE 04/02/2017 LOUISA ARBOLEDA APRN Ot E78.00 PURE HYPERCHOLESTEROLEMIA, UNSPECIFIED 04/02/2017 LOUISA ARBOLEDA APRN Ot H11.31 CONJUNCTIVAL HEMORRHAGE, RIGHT EYE 04/02/2017 LOUISA ARBOLEDA APRN Ot H11.89 OTHER SPECIFIED DISORDERS OF CONJUNCTIVA 04/02/2017 LOUISA ARBOLEDA APRN Ot H57 .8 OTHER SPECIFIED DISORDERS OF EYE AND ADN 04/02/2017 LOUISA ARBOLEDA APRN Ot I25.10 ATHSCL HEART DISEASE OF [place] CORONARY 04/02/2017 LOUISA ARBOLEDA APRN Ot I25 .2 OLD MYOCARDIAL INFARCTION 04/02/2017 LOUISA ARBOLEDA APRN Ot Z79.82 ALF (CURRENT) USE OF ASPIRIN 04/02/2017 LOUISA ARBOLEDA APRN Ot Z82.49 FAMILY HX OF [place] HEART DIS AND OTH DI 04/02/2017 LOUISA ARBOLEDA APRN Ot Z85.46 PERSONAL HISTORY OF MALIGNANT NEOPLASM O 04/02/2017 LOUISA ARBOLEDA 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 Ot Z85.51 PERSONAL HISTORY OF MALIGNANT NEOPLASM O 04/02/2017 LOUISA ARBOLEDA 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 Ot Z87.19 PERSONAL HISTORY OF OTHER DISEASES OF TH 04/02/2017 LOUISA ARBOLEDA 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 Ot Z87.891 PERSONAL HISTORY OF NICOTINE DEPENDENCE 04/02/2017 LOUISA ARBOLEDA APRN Ot Z96.652 PRESENCE OF LEFT ARTIFICIAL KNEE JOINT 04/08/2017 LOUISA ARBOLEDA APRN Ot E78.00 PURE HYPERCHOLESTEROLEMIA, UNSPECIFIED 04/08/2017 LOUISA ARBOLEDA APRN Ot H11.31 CONJUNCTIVAL HEMORRHAGE, RIGHT EYE 04/08/2017 LOUISA ARBOLEDA APRN Ot H11.89 OTHER SPECIFIED DISORDERS OF CONJUNCTIVA 04/08/2017 LOUISA ARBOLEDA APRN Ot H57 .8 OTHER SPECIFIED DISORDERS OF EYE AND ADN 04/08/2017 LOUISA ARBOLEDA APRN Ot I25.10 ATHSCL HEART DISEASE OF [place] CORONARY 04/08/2017 LOUISA ARBOLEDA APRN Ot I25 .2 OLD MYOCARDIAL INFARCTION 04/08/2017 LOUISA ARBOLEDA APRN Ot Z79.82 ALF (CURRENT) USE OF ASPIRIN 04/08/2017 LOUISA ARBOLEDA [...] I25.10 ATHSCL HEART DISEASE OF [place] CORONARY 05/02/2017 ASHLY BARAHONA Ot 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 INFARCTION 05/02/2017 ASHLY BARAHONA Ot J11.1 FLU DUE TO UNIDENTIFIED INFLUENZA VIRUS 05/02/2017 ASHLY BARAHONA Ot R 05 COUGH 05/02/2017 ASHLY BARAHONA Ot Z20.828 CONTACT W AND EXPOSURE TO OTH VIRAL COMM 05/02/2017 ASHLY BARAHONA Ot Z79.82 ALF (CURRENT) USE OF ASPIRIN 05/02/2017 ASHLY BARAHONA Ot Z82.49 FAMILY HX OF [place] HEART DIS AND OTH DI 05/02/2017 ASHLY BARAHONA Ot Z85.46 PERSONAL HISTORY OF MALIGNANT NEOPLASM O 05/02/2017 ASHLY BARAHONA Ot Z85.51 PERSONAL HISTORY OF MALIGNANT NEOPLASM O 05/02/2017 ASHLY BARAHONA Ot Z88.8 ALLERGY STATUS TO OTH DRUG/MEDS/BIOL SUB 05/02/2017 ASHLY BARAHONA Ot Z95.5 PRESENCE OF CORONARY ANGIOPLASTY IMPLANT 05/02/2017 ASHLY BARAHONA Ot Z96.652 PRESENCE OF LEFT ARTIFICIAL KNEE JOINT 05/04/2017 ASHLY BARAHONA Ot E78.00 PURE HYPERCHOLESTEROLEMIA, UNSPECIFIED 05/04/2017 ASHLY BARAHONA Ot I25.10 ATHSCL HEART DISEASE OF [place] CORONARY 05/04/2017 ASHLY BARAHONA Ot 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 INFARCTION 05/04/2017 ASHLY BARAHONA Ot J11.1 FLU DUE TO UNIDENTIFIED INFLUENZA VIRUS 05/04/2017 ASHLY BARAHONA Ot R 05 COUGH 05/04/2017 ASHLY BARAHONA Ot Z20.828 CONTACT W AND EXPOSURE TO OTH VIRAL COMM 05/04/2017 ASHLY BARAHONA Ot Z79.82 CHAIN PEGGER (CURRENT) USE OF ASPIRIN 05/04/2017 ASHLY BARAHONA [...] I25.10 ATHSCL HEART DISEASE OF [place] CORONARY 05/08/2017 ASHLY BARAHONA Ot 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 INFARCTION 05/08/2017 ASHLY BARAHONA Ot J11.1 FLU DUE TO UNIDENTIFIED INFLUENZA VIRUS 05/08/2017 ASHLY BARAHONA Ot R 05 COUGH 05/08/2017 ASHLY BARAHONA Ot Z20.828 CONTACT W AND EXPOSURE TO OTH VIRAL COMM 05/08/2017 ASHLY BARAHONA Ot Z79.82 ALF (CURRENT) USE OF ASPIRIN 05/08/2017 ASHLY BARAHONA Ot Z82.49 FAMILY HX OF [place] HEART DIS AND OTH DI 05/08/2017 ASHLY BARAHONA Ot Z85.46 PERSONAL HISTORY OF MALIGNANT NEOPLASM O 05/08/2017 ASHLY BARAHONA Ot Z85.51 PERSONAL HISTORY OF MALIGNANT NEOPLASM O 05/08/2017 ASHLY BARAHONA Ot Z88.8 ALLERGY STATUS TO OT DRUG/MEDS/BIOL SUB 05/08/2017 ASHLY BARAHONA Ot Z95.5 PRESENCE OF CORONARY ANGIOPLASTY IMPLANT 05/08/2017 ASHLY BARAHONA Ot Z96.652 PRESENCE OF LEFT ARTIFICIAL KNEE JOINT 08/28/2017 CARLI PURDY, BLAKE Miller Ot E04.1 NONTOXIC SINGLE THYROID NODULE 08/28/2017 LOUISA ARBOLEDA APRN Ot E78.00 PURE HYPERCHOLESTEROLEMIA, UNSPECIFIED 08/28/2017 LOUISA ARBOLEDA APRN Ot I25.10 ATHSCL HEART DISEASE OF [place] CORONARY 08/28/2017 LOUISA ARBOLEDA APRN Ot I25 .2 OLD MYOCARDIAL INFARCTION 08/28/2017 LOUISA ARBOLEDA APRN Ot R06.02 SHORTNESS OF BREATH 08/28/2017 LOUISA ARBOLEDA APRN Ot R06.09 OTHER FORMS OF DYSPNEA 08/28/2017 LOUISA ARBOLEDA APRN Ot Z79.82 ALF (CURRENT) USE OF ASPIRIN 08/28/2017 LOUISA ARBOLEDA APRN Ot Z82.49 FAMILY HX OF [place] HEART DIS AND OTH DI 08/28/2017 LOUISA ARBOLEDA APRN Ot Z85.46 PERSONAL HISTORY OF MALIGNANT NEOPLASM O 08/28/2017 LOUISA ARBOLEDA APRN Ot Z85.51 PERSONAL HISTORY OF MALIGNANT NEOPLASM O 08/28/2017 LOUISA ARBOLEDA APRN Ot Z87.891 PERSONAL HISTORY OF NICOTINE DEPENDENCE 08/28/2017 LOUISA ARBOLEDA APRN Ot Z95 .5 PRESENCE OF CORONARY ANGIOPLASTY IMPLANT 08/28/2017 LOUISA ARBOLEDA APRN Ot Z96.652 PRESENCE OF LEFT ARTIFICIAL KNEE JOINT 08/30/2017 LOUISA ARBOLEDA APRN Ot E78.00 PURE HYPERCHOLESTEROLEMIA, UNSPECIFIED 08/30/2017 LOUISA ARBOLEDA APRN Ot I25.10 ATHSCL HEART DISEASE OF [place] CORONARY 08/30/2017 LOUISA ARBOLEDA APRN Ot I25 .2 OLD MYOCARDIAL INFARCTION 08/30/2017 LOUISA ARBOLEDA APRN Ot R06.02 SHORTNESS OF BREATH 08/30/2017 LOUISA ARBOLEDA APRN Ot R06.09 OTHER FORMS OF DYSPNEA 08/30/2017 LOUISA ARBOLEDA APRN Ot Z79.82 CHAIN PEGGER (CURRENT) USE OF ASPIRIN 08/30/2017 LOUISA ARBOLEDA APRN Ot Z82.49 FAMILY HX OF [place] HEART DIS AND OTH DI 08/30/2017 LOUISA ARBOLEDA APRN Ot Z85.46 PERSONAL HISTORY OF MALIGNANT NEOPLASM O 08/30/2017 LOUISA ARBOLEDA APRN Ot Z85.51 PERSONAL HISTORY OF MALIGNANT NEOPLASM O 08/30/2017 LOUISA ARBOLEDA APRN Ot Z87.891 PERSONAL HISTORY OF NICOTINE DEPENDENCE 08/30/2017 LOUISA ARBOLEDA APRN Ot Z95 .5 PRESENCE OF CORONARY ANGIOPLASTY IMPLANT 08/30/2017 LOUISA ARBOLEDA APRN Ot Z96.652 PRESENCE OF LEFT ARTIFICIAL KNEE JOINT 09/22/2017 LOUISA ARBOLEDA APRN Ot E78.00 PURE HYPERCHOLESTEROLEMIA, UNSPECIFIED 09/22/2017 LOUISA ARBOLEDA APRN Ot I25.10 ATHSCL HEART DISEASE OF [place] CORONARY 09/22/2017 LOUISA ARBOLEDA APRN Ot I25 .2 OLD MYOCARDIAL INFARCTION 09/22/2017 LOUISA ARBOLEDA APRN Ot S61.432A PUNCTURE WOUND W/O FOREIGN BODY OF LEFT 09/22/2017 LOUISA ARBOLEDA APRN Ot W34.09XA ACCIDENTAL DISCHARGE FROM [facility], 09/22/2017 LOUISA ARBOLEDA APRN Ot Z79.82 CHAIN PEGGER (CURRENT) USE OF ASPIRIN 09/22/2017 LOUISA ARBOLEDA APRN Ot Z85.46 PERSONAL HISTORY OF MALIGNANT NEOPLASM O 09/22/2017 LOUISA ARBOLEDA APRN Ot Z85.51 PERSONAL HISTORY OF MALIGNANT NEOPLASM O 09/22/2017 LOUISA ARBOLEDA APRN Ot Z96.632 PRESENCE OF LEFT ARTIFICIAL WRIST JOINT 09/25/2017 LOUISA ARBOLEDA APRN Ot E78.00 PURE HYPERCHOLESTEROLEMIA, UNSPECIFIED 09/25/2017 LOUISA ARBOLEDA APRN Ot I25.10 ATHSCL HEART DISEASE OF [place] CORONARY 09/25/2017 LOUISA ARBOLEDA APRN Ot I25 .2 OLD MYOCARDIAL INFARCTION 09/25/2017 LOUISA ARBOLEDA APRN Ot S61.432A PUNCTURE WOUND W/O FOREIGN BODY OF LEFT 09/25/2017 LOUISA ARBOLEDA APRN Ot W34.09XA ACCIDENTAL DISCHARGE FROM [facility], 09/25/2017 LOUISA ARBOLEDA APRN Ot Z79.82 CHAIN PEGGER (CURRENT) USE OF ASPIRIN 09/25/2017 LOUISA ARBOLEDA APRN Ot Z85.46 PERSONAL HISTORY OF MALIGNANT NEOPLASM O 09/25/2017 LOUISA ARBOLEDA APRN Ot Z85.51 PERSONAL HISTORY OF MALIGNANT NEOPLASM O 09/25/2017 LOUISA ARBOLEDA APRN Ot Z96.632 PRESENCE OF LEFT ARTIFICIAL WRIST JOINT 10/18/2017 CARLI PURDY, BLAKE Miller Ot 780.4 DIZZINESS AND GIDDINESS 10/18/2017 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 Ot 722.52 LUMB/LUMBOSAC DISC DEGEN 10/18/2017 YU PURDY, JAVIER Cannon Ot 600.0 0 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 10/18/2017 JAVIER NICHOLAS MD Ot V72.6 3 PRE-PROCEDURAL LABORATORY EXAMINATION 10/18/2017 JAVIER NICHOLAS MD Ot V72.8 3 EXAM PRE-OPERATIVE NEC 10/18/2017 JAVIER NICHOLAS MD Ot V74.8 SCREEN-BACTERIAL DIS NEC 10/18/2017 ILENE PURDY, ROSARIO Nguyen Ot V72.84 EXAM PRE-OPERATIVE NOS 10/18/2017 ILENE PURDY, ROSARIO Nguyen Ot 569.9 INTESTINAL DISORDER NOS 10/18/2017 ILENE PURDY, ROSARIO Nguyen Ot V72.83 EXAM PRE-OPERATIVE NEC 10/18/2017 ILENE PURDY, ROSARIO Nguyen Ot V74.8 SCREEN-BACTERIAL DIS NEC 10/18/2017 JAVIER NICHOLAS MD Ot 185 MALIGN NEOPL PROSTATE 10/18/2017 JAVIER NICHOLAS MD Ot V72.6 3 PRE-PROCEDURAL LABORATORY EXAMINATION 10/18/2017 JAVIER NICHOLAS MD Ot V74.8 SCREEN-BACTERIAL DIS NEC 10/18/2017 Ot 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 10/18/2017 Ot 728.9 MUSC LE/LIGAMENT DIS NOS 10/18/2017 JAVIER NICHOLAS MD Ot 562.1 0 DIVERTICULOSIS COLON (W/O MENT OF HEMORR 10/18/2017 JAVIER NICHOLAS MD Ot 599.7 0 HEMATURIA, UNSPECIFIED 10/18/2017 JAVIER NICHOLAS MD Ot 721.3 LUMBOSACRAL SPONDYLOSIS 10/18/2017 JAVIER NICHOLAS MD Ot 733.9 0 BONE CARTILAGE DIS NOS 10/18/2017 YU PURDY, JAVIER Cannon Ot 785.6 ENLARGEMENT LYMPH NODES 10/18/2017 JAVIER NICHOLAS MD Ot R31.9 HEMATURIA, UNSPECIFIED 10/18/2017 CARLI PURDY, BLAKE Miller Ot M46.06 SPINAL ENTHESOPATHY, LUMBAR REGION 10/18/2017 CARLI PURDY, BLAKE Miller Ot M46.06 SPINAL ENTHESOPATHY, LUMBAR REGION 10/18/2017 CAIO PURDY, BASHIR Mauro Ot I10 ESSENTIAL (PRIMARY) HYPERTENSION 10/18/2017 CAIO PURDY, BASHIR Mauro Ot I25.10 ATHSCL HEART DISEASE OF [place] CORONARY 10/18/2017 CAIO PURDY, BASHIR Mauro Ot R06.02 SHORTNESS OF BREATH 10/18/2017 CAIO PURDY, BASHIR Mauro Ot R42 DIZZINESS AND GIDDINESS 10/18/2017 DEVORA PURDY, TASIA Nguyen Ot C67.9 MALIGNANT NEOPLASM OF [place], UNSPECIFI 10/18/2017 PRAVEENA JORDAN, AMANDA Muñoz Ot M54.5 LOW BACK PAIN 10/18/2017 DEVORA PURDY, TASIA M Ot C67.9 MALIGNANT NEOPLASM OF [place], UNSPECIFI 10/18/2017 DEVORA PURDY, TASIA Nguyen Ot C67.9 MALIGNANT NEOPLASM OF [place], UNSPECIFI 10/18/2017 CARLI PURDY, BLAKE Miller Ot E04.1 NONTOXIC SINGLE THYROID NODULE 10/19/2017 CARLI PURDY, BLAKE Miller Ot J44.9 CHRONIC OBSTRUCTIVE PULMONARY DISEASE, U 10/19/2017 CARLI PURDY, BLAKE Miller Ot Z98.890 OTHER SPECIFIED POSTPROCEDURAL STATES 11/23/2017 CARLI PURDY, BLAKE Miller Ot J44.9 CHRONIC OBSTRUCTIVE PULMONARY DISEASE, U 11/23/2017 CARLI PURDY, BLAKE Miller Ot Z98.890 OTHER SPECIFIED POSTPROCEDURAL STATES 02/17/2018 CHELLY PURDY, YAW Nuñez Ot E78.00 PURE HYPERCHOLESTEROLEMIA, UNSPECIFIED 02/17/2018 YAW SPAULDING MD Ot I25.10 ATHSCL HEART DISEASE OF [place] CORONARY 02/17/2018 YAW SPAULDING MD, Ot 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 INFARCTION 02/17/2018 YAW SPAULDING MD Ot J98.01 ACUTE BRONCHOSPASM 02/17/2018 YAW SPAULDING MD Ot R07.89 OTHER CHEST PAIN 02/17/2018 YAW SPAULDING MD Ot Z79.51 ALF (CURRENT) USE OF INHALED STERO 02/17/2018 YAW SPAULDING MD Ot Z79.82 CHAIN PEGGER (CURRENT) USE OF ASPIRIN 02/17/2018 YAW SPAULDING MD Ot Z82.49 FAMILY HX OF [place] HEART DIS AND OTH DI 02/17/2018 YAW SPAULDING MD, Ot Z85.46 PERSONAL HISTORY OF MALIGNANT NEOPLASM O 02/17/2018 YAW SPAULDING MD Ot Z85.51 PERSONAL HISTORY OF MALIGNANT NEOPLASM O 02/17/2018 AYW SPAULDING MD, Ot Z87.19 PERSONAL HISTORY OF OTHER DISEASES OF TH 02/17/2018 YAW SPAULDING MD Ot Z87.891 PERSONAL HISTORY OF NICOTINE DEPENDENCE 02/17/2018 YAW SPAULDING MD Ot Z93.3 COLOSTOMY STATUS 02/17/2018 YAW SPAULDING MD, Ot Z95.5 PRESENCE OF CORONARY ANGIOPLASTY IMPLANT 02/17/2018 YAW SPAULDING MD Ot Z95.9 PRESENCE OF CARDIAC AND VASCULAR IMPLANT 02/17/2018 YAW SPAULDING MD Ot Z96.652 PRESENCE OF LEFT ARTIFICIAL KNEE JOINT 02/20/2018 YAW SPAULDING MD Ot E78.00 PURE HYPERCHOLESTEROLEMIA, UNSPECIFIED 02/20/2018 YAW SPAULDING MD Ot I25.10 ATHSCL HEART DISEASE OF [place] CORONARY 02/20/2018 YAW SPAULDING MD, Ot 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 INFARCTION 02/20/2018 YAW SPAULDING MD Ot J98.01 ACUTE BRONCHOSPASM 02/20/2018 YAW SPAULDING MD Ot R07.89 OTHER CHEST PAIN 02/20/2018 YAW SPAULDING MD Ot Z79.51 ALF (CURRENT) USE OF INHALED STERO 02/20/2018 YAW SPAULDING MD Ot Z79.82 CHAIN PEGGER (CURRENT) USE OF ASPIRIN 02/20/2018 YAW SPAULDING MD Ot Z82.49 FAMILY HX OF [place] HEART DIS AND OTH DI 02/20/2018 YAW SPAULDING MD Ot Z85.46 PERSONAL HISTORY OF MALIGNANT NEOPLASM O 02/20/2018 YAW SPAULDING MD Ot Z85.51 PERSONAL HISTORY OF MALIGNANT NEOPLASM O 02/20/2018 YAW SPAULDING MD Ot Z87.19 PERSONAL HISTORY OF OTHER DISEASES OF TH 02/20/2018 YAW SPAULDING MD Ot Z87.891 PERSONAL HISTORY OF NICOTINE DEPENDENCE 02/20/2018 YAW SPAULDING MD Ot Z93.3 COLOSTOMY STATUS 02/20/2018 YAW SPAULDING MD Ot Z95.5 PRESENCE OF CORONARY ANGIOPLASTY IMPLANT 02/20/2018 YAW SPAULDING MD Ot Z95.9 PRESENCE OF CARDIAC AND VASCULAR IMPLANT 02/20/2018 YAW SPAULDING MD Ot Z96.652 PRESENCE OF LEFT ARTIFICIAL KNEE JOINT 03/17/2018 BLAKE BOYCE MD Ot G89.29 OTHER CHRONIC PAIN 03/17/2018 BLAKE BOYCE MD Ot M25.551 PAIN IN RIGHT HIP 03/17/2018 BLAKE BOYCE MD Ot M25.552 PAIN IN LEFT HIP 04/06/2018 BLAKE BOYCE MD Ot G89.29 OTHER CHRONIC PAIN 04/06/2018 BLAKE BOYCE MD Ot M25.551 PAIN IN RIGHT HIP 04/06/2018 BLAKE BOYCE MD Ot M25.552 PAIN IN LEFT HIP 04/06/2018 BASHIR KEARNEY MD Ot Z48.812 ENCNTR FOR SURGICAL AFTCR FOLLOWING SURG 04/06/2018 BASHIR KEARNEY MD Ot Z95 .5 PRESENCE OF CORONARY ANGIOPLASTY IMPLANT 04/26/2018 BLAKE BOYCE MD Ot G89.29 OTHER CHRONIC PAIN 04/26/2018 BLAKE BOYCE MD Ot M25.551 PAIN IN RIGHT HIP 04/26/2018 BLAKE BOYCE MD Ot M25.552 PAIN IN LEFT HIP 05/18/2018 BASHIR KEARNEY MD Ot Z48.812 ENCNTR FOR SURGICAL AFTCR FOLLOWING SURG 05/18/2018 BASHIR KEARNEY MD Ot Z95 .5 PRESENCE OF CORONARY ANGIOPLASTY IMPLANT 06/09/2018 YULIET PETER MD Ot E78.00 PURE HYPERCHOLESTEROLEMIA, UNSPECIFIED 06/09/2018 YULIET PETER MD Ot I25.10 ATHSCL HEART DISEASE OF [place] CORONARY 06/09/2018 YULIET PETER MD Ot I25 .2 OLD MYOCARDIAL INFARCTION 06/09/2018 YULIET PETER MD Ot 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 06/09/2018 YULIET PETER MD Ot Z79.51 CHAIN PEGGER (CURRENT) USE OF INHALED STERO 06/09/2018 YULIET PETER MD Ot Z79.82 ALF (CURRENT) USE OF ASPIRIN 06/09/2018 YULIET PETER MD Ot Z82.49 FAMILY HX OF ISCHEM HEART DIS AND OTH DI 06/09/2018 YULIET PETER MD Ot Z85.46 PERSONAL HISTORY OF MALIGNANT NEOPLASM O 06/09/2018 YULIET PETER MD Ot Z85.51 PERSONAL HISTORY OF MALIGNANT NEOPLASM O 06/09/2018 YULIET PETER MD, Ot Z87.19 PERSONAL HISTORY OF OTHER DISEASES OF TH 06/09/2018 YULIET PETER MD Ot Z87.891 PERSONAL HISTORY OF NICOTINE DEPENDENCE 06/09/2018 YULIET PETER MD Ot Z95 .5 PRESENCE OF CORONARY ANGIOPLASTY IMPLANT 06/09/2018 YULIET PETER MD Ot Z96.651 PRESENCE OF RIGHT ARTIFICIAL KNEE JOINT 06/09/2018 YULIET PETER MD Ot Z98.890 OTHER SPECIFIED POSTPROCEDURAL STATES 06/12/2018 YULIET PETER MD Ot E78.00 PURE HYPERCHOLESTEROLEMIA, UNSPECIFIED 06/12/2018 YULIET PETER MD Ot I25.10 ATHSCL HEART DISEASE OF [place] CORONARY 06/12/2018 YULIET PETER MD, Ot I25 .2 OLD MYOCARDIAL INFARCTION 06/12/2018 YULIET PETER MD Ot 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 06/12/2018 YULIET PETER MD Ot Z79.51 CHAIN PEGGER (CURRENT) USE OF INHALED STERO 06/12/2018 YULIET PETER MD, Ot Z79.82 CHAIN PEGGER (CURRENT) USE OF ASPIRIN 06/12/2018 YULIET PETER MD Ot Z82.49 FAMILY HX OF ISCHEM HEART DIS AND OTH DI 06/12/2018 YULIET PETER MD, Ot Z85.46 PERSONAL HISTORY OF MALIGNANT NEOPLASM O 06/12/2018 YULIET PETER MD Ot Z85.51 PERSONAL HISTORY OF MALIGNANT NEOPLASM O 06/12/2018 YULIET PETER MD Ot Z87.19 PERSONAL HISTORY OF OTHER DISEASES OF 06/12/2018 YULIET PETER MD, Ot Z87.891 PERSONAL HISTORY OF NICOTINE DEPENDENCE 06/12/2018 YULIET PETER MD Ot Z95 .5 PRESENCE OF CORONARY ANGIOPLASTY IMPLANT 06/12/2018 YULIET PETER MD Ot Z96.651 PRESENCE OF RIGHT ARTIFICIAL KNEE JOINT 06/12/2018 YULIET PETER MD Ot Z98.890 OTHER SPECIFIED POSTPROCEDURAL STATES 06/21/2018 BASHIR KEARNEY MD Ot Z48.812 ENCNTR FOR SURGICAL AFTCR FOLLOWING SURG 06/21/2018 BASHIR KEARNEY MD Ot Z95 .5 PRESENCE OF CORONARY ANGIOPLASTY IMPLANT 07/01/2018 BASHIR KEARNEY MD Ot Z48.812 ENCNTR FOR SURGICAL AFTCR FOLLOWING SURG 07/01/2018 BASHIR KEARNEY MD Ot Z95 .5 PRESENCE OF CORONARY ANGIOPLASTY IMPLANT 07/02/2018 BASHIR KEARNEY MD Ot Z48.812 ENCNTR FOR SURGICAL AFTCR FOLLOWING SURG 07/02/2018 BASHIR KEARNEY MD Ot Z95 .5 PRESENCE OF CORONARY ANGIOPLASTY IMPLANT 07/07/2018 BASHIR KEARNEY MD Ot Z48.812 ENCNTR FOR SURGICAL AFTCR FOLLOWING SURG 07/07/2018 BASHIR KEARNEY MD Ot Z95 .5 PRESENCE OF CORONARY ANGIOPLASTY IMPLANT 09/10/2018 BASHIR KEARNEY MD R Ot Z48.812 ENCNTR FOR SURGICAL AFTCR FOLLOWING SURG 09/10/2018 BASHIR KEARNEY MD Ot Z95 .5 PRESENCE OF CORONARY ANGIOPLASTY IMPLANT 10/02/2018 BASHIR KEARNEY MD Ot Z48.812 ENCNTR FOR SURGICAL AFTCR FOLLOWING SURG 10/02/2018 BASHIR KEARNEY MD Ot Z95 .5 PRESENCE OF CORONARY ANGIOPLASTY IMPLANT 10/03/2018 BASHIR KEARNEY MD Ot Z48.812 ENCNTR FOR SURGICAL AFTCR FOLLOWING SURG 10/03/2018 BASHIR KEARNEY MD Ot Z95 .5 PRESENCE OF CORONARY ANGIOPLASTY IMPLANT 10/03/2018 BASHIR KEARNEY MD Ot Z48.812 ENCNTR FOR SURGICAL AFTCR FOLLOWING SURG 10/03/2018 BASHIR KEARNEY MD Ot Z95 .5 PRESENCE OF CORONARY ANGIOPLASTY IMPLANT 10/12/2018 BASHIR KEARNEY MD Ot Z29 .8 ENCOUNTER FOR OTHER SPECIFIED PROPHYLACT 10/15/2018 BASHIR KEARNEY MD Ot Z29 .8 ENCOUNTER FOR OTHER SPECIFIED PROPHYLACT 10/25/2018 BLAKE BOYCE MD Ot M25.571 PAIN IN RIGHT ANKLE AND JOINTS OF RIGHT 11/13/2018 BLAKE BOYCE MD Ot M25.571 PAIN IN RIGHT ANKLE AND JOINTS OF RIGHT 11/16/2018 BASHIR KEARNEY MD Ot Z29 .8 ENCOUNTER FOR OTHER SPECIFIED PROPHYLACT 12/12/2018 TAVIA LOPEZ MD Ot E78.00 PURE HYPERCHOLESTEROLEMIA, UNSPECIFIED 12/12/2018 TAVIA LOPEZ MD Ot I25.10 ATHSCL HEART DISEASE OF [place] CORONARY 12/12/2018 TAVIA LOPEZ MD Ot 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 INFARCTION 12/12/2018 TAVIA LOPEZ MD Ot R07.89 OTHER CHEST PAIN 12/12/2018 TAVIA LOPEZ MD Ot R07.9 CHEST PAIN, UNSPECIFIED 12/12/2018 TAVIA LOPEZ MD Ot R19.7 DIARRHEA, UNSPECIFIED 12/12/2018 TAVIA LOPEZ MD Ot R79.89 OTHER SPECIFIED ABNORMAL FINDINGS OF BLO 12/12/2018 TAVIA LOPEZ MD Ot Z79.82 CHAIN PEGGER (CURRENT) USE OF ASPIRIN 12/12/2018 TAVIA LOPEZ MD Ot Z82.49 FAMILY HX OF [place] HEART DIS AND OTH DI 12/12/2018 TAVIA LOPEZ MD Ot Z85.46 PERSONAL HISTORY OF MALIGNANT NEOPLASM O 12/12/2018 TAVIA LOPEZ MD Ot Z85.51 PERSONAL HISTORY OF MALIGNANT NEOPLASM O 12/12/2018 TAVIA LOPEZ MD Ot Z87.891 PERSONAL HISTORY OF NICOTINE DEPENDENCE 12/12/2018 TAVIA LOPEZ MD Ot Z95.5 PRESENCE OF CORONARY ANGIOPLASTY IMPLANT 12/14/2018 TAVIA LOPEZ MD Ot E78.00 PURE HYPERCHOLESTEROLEMIA, UNSPECIFIED 12/14/2018 TAVIA LOPEZ MD Ot I25.10 ATHSCL HEART DISEASE OF [place] CORONARY 12/14/2018 TAVIA LOPEZ MD Ot 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 INFARCTION 12/14/2018 TAVIA LOPEZ MD Ot R07.89 OTHER CHEST PAIN 12/14/2018 TAVIA LOPEZ MD Ot R07.9 CHEST PAIN, UNSPECIFIED 12/14/2018 TAVIA LOPEZ MD Ot R19.7 DIARRHEA, UNSPECIFIED 12/14/2018 TAVIA LOPEZ MD Ot R79.89 OTHER SPECIFIED ABNORMAL FINDINGS OF BLO 12/14/2018 TAVIA LOPEZ MD Ot Z79.82 [place] (CURRENT) USE OF ASPIRIN 12/14/2018 TAVIA LOPEZ MD Ot Z82.49 FAMILY HX OF [place] HEART DIS AND OTH DI 12/14/2018 TAVIA LOPEZ MD Ot Z85.46 PERSONAL HISTORY OF MALIGNANT NEOPLASM O 12/14/2018 TAVIA LOPEZ MD Ot Z85.51 PERSONAL HISTORY OF MALIGNANT NEOPLASM O 12/14/2018 TAVIA LOPEZ MD Ot Z87.891 PERSONAL HISTORY OF NICOTINE DEPENDENCE 12/14/2018 TAVIA LOPEZ MD Ot Z95.5 PRESENCE OF CORONARY ANGIOPLASTY IMPLANT 12/18/2018 TAVIA LOPEZ MD Ot E78.00 PURE HYPERCHOLESTEROLEMIA, UNSPECIFIED 12/18/2018 TAVIA LOPEZ MD Ot I25.10 ATHSCL HEART DISEASE OF [place] CORONARY 12/18/2018 TAVIA LOPEZ MD Ot 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 INFARCTION 12/18/2018 TAVIA LOPEZ MD Ot R07.89 OTHER CHEST PAIN 12/18/2018 TAVIA LOPEZ MD Ot R07.9 CHEST PAIN, UNSPECIFIED 12/18/2018 TAVIA LOPEZ MD Ot R19.7 DIARRHEA, UNSPECIFIED 12/18/2018 TAVIA LOPEZ MD Ot R79.89 OTHER SPECIFIED ABNORMAL FINDINGS OF BLO 12/18/2018 TAVIA LOPEZ MD Ot Z79.82 ALF (CURRENT) USE OF ASPIRIN 12/18/2018 TAVIA LOPEZ MD Ot Z82.49 FAMILY HX OF ISCHE[place] HEART DIS AND OTH DI 12/18/2018 TAVIA LOPEZ MD Ot Z85.46 PERSONAL HISTORY OF MALIGNANT NEOPLASM O 12/18/2018 TAVIA LOPEZ MD Ot Z85.51 PERSONAL HISTORY OF MALIGNANT NEOPLASM O 12/18/2018 TAVIA LOPEZ MD Ot Z87.891 PERSONAL HISTORY OF NICOTINE DEPENDENCE 12/18/2018 TAVIA LOPEZ MD Ot Z95.5 PRESENCE OF CORONARY ANGIOPLASTY IMPLANT 12/18/2018 TAVAI LOPEZ MD Ot E78.00 PURE HYPERCHOLESTEROLEMIA, UNSPECIFIED 12/18/2018 TAVIA LOPEZ MD Ot I25.10 ATHSCL HEART DISEASE OF [place] CORONARY 12/18/2018 TAVIA LOPEZ MD Ot 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 INFARCTION 12/18/2018 TAVIA LOPEZ MD Ot R07.89 OTHER CHEST PAIN 12/18/2018 TAVIA LOPEZ MD Ot R07.9 CHEST PAIN, UNSPECIFIED 12/18/2018 TAVIA LOPEZ MD Ot R19.7 DIARRHEA, UNSPECIFIED 12/18/2018 TAVIA LOPEZ MD Ot R79.89 OTHER SPECIFIED ABNORMAL FINDINGS OF BLO 12/18/2018 TAVIA LOPEZ MD, Ot Z79.82 ALF (CURRENT) USE OF ASPIRIN 12/18/2018 TAVIA LOPEZ MD, Ot Z82.49 FAMILY HX OF [place] HEART DIS AND OTH DI 12/18/2018 TAVIA LOPEZ MD, Ot Z85.46 PERSONAL HISTORY OF MALIGNANT NEOPLASM O 12/18/2018 TAVIA LOPEZ MD, Ot Z85.51 PERSONAL HISTORY OF MALIGNANT NEOPLASM O 12/18/2018 TAVIA LOPEZ MD, Ot Z87.891 PERSONAL HISTORY OF NICOTINE DEPENDENCE 12/18/2018 TAVIA LOPEZ MD, Ot Z95.5 PRESENCE OF CORONARY ANGIOPLASTY IMPLANT 12/21/2018 BLAKE BOYCE MD Ot D73.89 OTHER DISEASES OF SPLEEN 12/21/2018 BLAKE BOYCE MD Ot 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, 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 12/21/2018 BLAKE BOYCE MD Ot K85.80 OTHER ACUTE PANCREATITIS WITHOUT NECROSI 12/21/2018 BLAKE BOYCE MD Ot N28.1 CYST OF KIDNEY, ACQUIRED 12/21/2018 BLAKE BOYCE MD Ot Z90.6 ACQUIRED ABSENCE OF OTHER PARTS OF URINA 12/21/2018 BLAKE BOYCE MD Ot Z98.890 OTHER SPECIFIED POSTPROCEDURAL STATES 12/21/2018 BLAKE BOYCE MD Ot D73.89 OTHER DISEASES OF SPLEEN 12/21/2018 BLAKE BOYCE MD Ot 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, 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 12/21/2018 BLAKE BOYCE MD Ot K85.80 OTHER ACUTE PANCREATITIS WITHOUT NECROSI 12/21/2018 BLAKE BOYCE MD Ot N28.1 CYST OF KIDNEY, ACQUIRED 12/21/2018 BLAKE BOYCE MD Ot Z90.6 ACQUIRED ABSENCE OF OTHER PARTS OF URINA 12/21/2018 BLAKE BOYCE MD Ot Z98.890 OTHER SPECIFIED POSTPROCEDURAL STATES 02/11/2019 BASHIR KEARNEY MD Ot Z29 .8 ENCOUNTER FOR OTHER SPECIFIED PROPHYLACT 03/01/2019 BASHIR KEARNEY MD Ot Z29 .8 ENCOUNTER FOR OTHER SPECIFIED PROPHYLACT 03/21/2019 TAVIA LOPEZ MD Ot E78.00 PURE HYPERCHOLESTEROLEMIA, UNSPECIFIED 03/21/2019 TAVIA LOPEZ MD Ot I25.10 ATHSCL HEART DISEASE OF [place] CORONARY 03/21/2019 TAVIA LOPEZ MD Ot 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 INFARCTION 03/21/2019 TAVIA LOPEZ MD Ot N39.0 URINARY TRACT INFECTION, SITE NOT SPECIF 03/21/2019 TAVIA LOPEZ MD Ot R82.998 OTHER ABNORMAL FINDINGS IN URINE 03/21/2019 TAVIA LOPEZ MD Ot Z79.82 CH[place] PEGGER (CURRENT) USE OF ASPIRIN 03/21/2019 TAVIA LOPEZ MD Ot Z82.49 FAMILY HX OF I[place]HE[place] HEART DIS AND OTH DI 03/21/2019 TAVIA LOPEZ MD Ot Z85.46 PERSONAL HISTORY OF MALIGNANT NEOPLASM O 03/21/2019 TAVIA LOPEZ MD Ot Z85.51 PERSONAL HISTORY OF MALIGNANT NEOPLASM O 03/21/2019 TAVIA LOPEZ MD Ot Z87.891 PERSONAL HISTORY OF NICOTINE DEPENDENCE 03/21/2019 TAVIA LOPEZ MD Ot Z95.5 PRESENCE OF CORONARY ANGIOPLASTY IMPLANT 03/25/2019 TAVIA LOPEZ MD Ot E78.00 PURE HYPERCHOLESTEROLEMIA, UNSPECIFIED 03/25/2019 TAVIA LOPEZ MD Ot I25.10 ATHSCL HEART DISEASE OF [place] CORONARY 03/25/2019 TAVIA LOEPZ MD Ot 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 INFARCTION 03/25/2019 TAVIA LOPEZ MD Ot N39.0 URINARY TRACT INFECTION, SITE NOT SPECIF 03/25/2019 TAVIA LOPEZ MD Ot R82.998 OTHER ABNORMAL FINDINGS IN URINE 03/25/2019 TAVIA LOPEZ MD Ot Z79.82 CH[place] PEGGER (CURRENT) USE OF ASPIRIN 03/25/2019 TAVIA LOPEZ MD Ot Z82.49 FAMILY HX OF ISCHEM HEART DIS AND OTH DI 03/25/2019 TAVIA LOPEZ MD Ot Z85.46 PERSONAL HISTORY OF MALIGNANT NEOPLASM O 03/25/2019 TAVIA LOPEZ MD Ot Z85.51 PERSONAL HISTORY OF MALIGNANT NEOPLASM O 03/25/2019 TAVIA LOPEZ MD Ot Z87.891 PERSONAL HISTORY OF NICOTINE DEPENDENCE 03/25/2019 TAVIA LOPEZ MD Ot Z95.5 PRESENCE OF CORONARY ANGIOPLASTY IMPLANT 04/03/2019 BASHIR KEARNEY MD Ot Z29 .8 ENCOUNTER FOR OTHER SPECIFIED PROPHYLACT 05/13/2019 PAOLA BRUNSON MD Ot E78. 00 PURE HYPERCHOLESTEROLEMIA, UNSPECIFIED 05/13/2019 PAOLA BRUNSON MD, Ot I25. 10 ATHSCL HEART DISEASE OF [place] CORONARY 05/13/2019 PAOLA BRUNSON MD, Ot I25. 2 OLD MYOCARDIAL INFARCTION 05/13/2019 PAOLA BRUNSON MD, Ot M19. 90 UNSPECIFIED OSTEOARTHRITIS, UNSPECIFIED 05/13/2019 PAOLA BRUNSON MD, Ot N18. 9 CHRONIC KIDNEY DISEASE, UNSPECIFIED 05/13/2019 PAOLA BRUNSON MD, Ot N39. 0 URINARY TRACT INFECTION, SITE NOT SPECIF 05/13/2019 PAOLA BRUNSON MD Ot N99.521 INFECTION OF INCONTINENT EXTERNAL STOMA 05/13/2019 PAOLA BRUNSON MD, Ot R41. 0 DISORIENTATION, UNSPECIFIED 05/13/2019 PAOLA BRUNSON MD, Ot T83.592A I/I REACT D/T INDWELLING URETERAL STENT, 05/13/2019 PAOLA BRUNSON MD Ot Y83. 8 OT SURGICAL PROCEDURES CAUSE ABN REACT/ 05/13/2019 PAOLA BRUNSON MD Ot Z79. 4 CHAIN PEGGER (CURRENT) USE OF INSULIN 05/13/2019 PAOLA BRUNSON MD Ot Z79. 82 ALF (CURRENT) USE OF ASPIRIN 05/13/2019 PAOLA BRUNSON MD Ot Z85. 46 PERSONAL HISTORY OF MALIGNANT NEOPLASM O 05/13/2019 PAOLA BRUNSON MD, Ot Z85. 51 PERSONAL HISTORY OF MALIGNANT NEOPLASM O 05/13/2019 PAOLA BRUNSON MD, Ot Z87.891 PERSONAL HISTORY OF NICOTINE DEPENDENCE 05/13/2019 PAOLA BRUNSON MD, Ot Z90. 5 ACQUIRED ABSENCE OF KIDNEY 05/13/2019 PAOLA BRUNSON MD, Ot Z90. 6 ACQUIRED ABSENCE OF OTHER PARTS OF URINA 05/13/2019 PAOLA BRUNSON MD, Ot Z93. 3 COLOSTOMY STATUS 05/13/2019 BOY PURDY, PAOLA Nguyen Ot Z95. 1 PRESENCE OF AORTOCORONARY BYPASS GRAFT 05/19/2019 WESLEY WEST DO, Ot M19.011 PRIMARY OSTEOARTHRITIS, RIGHT SHOULDER 05/19/2019 WESLEY WEST DO, Ot M75.101 UNSP ROTATR-CUFF TEAR/RUPTR OF RIGHT ROBERT 05/19/2019 WESLEY WEST DO, Ot M75.31 CALCIFIC TENDINITIS OF RIGHT SHOULDER Procedures Code Description Performed By Per formed On LAPA ROSCOPIC RIGHT HEMICOLECTOMY 03/12/2014 38.93 VENO US CATHETERIZATION NEC 03/12/2014 45.93 SMAL L-TO-LARGE BOWEL NEC 03/12/2014 Results Test Result Range Complete blood count (CBC) with automate d white blood cell (WBC) differential - 06/06/16 21:30 Blood leukocytes automated count (number/volume) 6.0 10*3/uL 4.3-11.0 Blood erythrocytes automated count (number/volume) 4.92 10*6/uL 4.35-5.85 Venous blood hemoglobin measurement (mass/volume) 15.5 g/dL 13.3-17.7 Blood hematocrit (volume fraction) 45 % 40-54 Automated erythrocyte mean corpuscular volume 92 [ foz_us] 80-99 Automated erythrocyte mean corpuscular h emoglobin (mass per erythrocyte) 32 pg 25-34 Automated erythrocyte mean corpuscular h emoglobin concentration measurement (mass/volume) 34 g/dL 32-36 Automated erythrocyte distribution width ratio 13. 8 % 10.0- 14.5 Automated blood platelet count (count/volume) 171 10*3/uL [...] 10*3 1.0-4.0 Blood monocytes automated count (number/volume) 0. 5 10*3 0.0-1.0 Automated eosinophil count 0.4 10*3/uL 0 .0-0.3 Automated blood basophil count (count/volume) 0.0 10*3/uL 0.0-0.1 PT panel in platelet poor plasma by coag ulation assay - 06/06/16 21:30 Prothrombin time (PT) in platelet poor plasma by coagu lation assay 14.0 s 12.2-14.7 INR in platelet poor plasma or blood by coagulation as say 1.1 0.8-1.4 Activated partial thromboplastin time (a PTT) in platelet poor plasma bycoagulation assay - 06/06/16 21:30 Activated partial thromboplastin time (a PTT) in platelet poor plasma bycoagulation assay 28 s 24-35 Fibrin D-dimer FEU measurement in platel et poor plasma (mass/volume) - 06/06/16 21:30 Fibrin D-dimer FEU measurement in platelet [...] 5-14 Serum or plasma urea nitrogen measurement (mass/volume ) 19 mg/dL 7-18 Serum or plasma creatinine measurement (mass/volume) 1.37 mg/dL 0.60-1.30 Serum or plasma urea nitrogen/creatinine mass ratio 14 NRG Serum or plasma creatinine measurement w ith calculation of estimated glomerular filtration rate 50 NRG Serum or plasma glucose measurement (mass/volume) 123 mg/dL 70-105 Serum or plasma calcium measurement (mass/volume) 9.2 mg/dL 8.5-10.1 Serum or plasma total bilirubin measurement (mass/volu me) 0.5 mg/dL 0.1-1.0 Serum or plasma alkaline phosphatase liliane surement (enzymatic activity/volume) 76 U/L 40-136 Serum or plasma aspartate aminotransfera se measurement (enzymatic activity/volume) 33 U/L 5-34 Serum or plasma alanine aminotransferase measurement (enzymatic activity/volume) 31 U/L 0-55 Serum or plasma protein measurement (mass/volume) 6.7 g/dL 6.4-8.2 Serum or plasma albumin measurement (mass/volume) 4.0 g/dL 3.2-4.5 Magnesium - 06/06/16 21:30 Magnesium 2.2 mg/dL 1.8-2.4 Serum or plasma troponin i.cardiac measu rement (mass/volume) - 06/06/16 21:30 Serum or plasma troponin i.cardiac measurement (mass/v olume) < ng/mL <0.30 Myoglobin, serum - 06/06/16 21:30 Myoglobin, serum 323.0 ng/mL 10.0-92.0 Complete blood count (CBC) with automate d white blood cell (WBC) differential - 06/07/16 03:28 Blood leukocytes automated count (number/volume) 4.8 10*3/uL 4.3-11.0 Blood erythrocytes automated count (number/volume) 4.55 10*6/uL 4.35-5.85 Venous blood hemoglobin measurement (mass/volume) 14.4 g/dL 13.3-17.7 Blood hematocrit (volume fraction) 42 % 40-54 Automated erythrocyte mean corpuscular volume 93 [ foz_us] 80-99 Automated erythrocyte mean corpuscular h emoglobin (mass per erythrocyte) 32 pg 25-34 Automated erythrocyte mean corpuscular h emoglobin concentration measurement (mass/volume) 34 g/dL 32-36 Automated erythrocyte distribution width ratio 13. 7 % 10.0- 14.5 Automated blood platelet count (count/volume) 158 10*3/uL [...] 10*3 1.0-4.0 Blood monocytes automated count (number/volume) 0. 5 10*3 0.0-1.0 Automated eosinophil count 0.5 10*3/uL 0 .0-0.3 Automated blood basophil count (count/volume) 0.0 10*3/uL 0.0-0.1 Comprehensive metabolic panel - 06/07/16 03:28 Serum or plasma sodium measurement (moles/volume) 143 mmol/L 135-145 Serum or plasma potassium measurement (moles/volume) 3.6 mmol/L 3.6-5.0 Serum or plasma chloride measurement (moles/volume) 107 mmol/L 98-107 Carbon dioxide 23 mmol/L 21-32 Serum or plasma anion gap determination (moles/volume) 13 mmol/L 5-14 Serum or plasma urea nitrogen measurement (mass/volume ) 16 mg/dL 7-18 Serum or plasma creatinine measurement (mass/volume) 1.17 mg/dL 0.60-1.30 Serum or plasma urea nitrogen/creatinine mass ratio 14 NRG Serum or plasma creatinine measurement w ith calculation of estimated glomerular filtration rate 60 NRG Serum or plasma glucose measurement (mass/volume) 114 mg/dL 70-105 Serum or plasma calcium measurement (mass/volume) 8.7 mg/dL 8.5-10.1 Serum or plasma total bilirubin measurement (mass/volu me) 0.5 mg/dL 0.1-1.0 Serum or plasma alkaline phosphatase liliane surement (enzymatic activity/volume) 67 U/L 40-136 Serum or plasma aspartate aminotransfera se measurement (enzymatic activity/volume) 30 U/L 5-34 Serum or plasma alanine aminotransferase measurement (enzymatic activity/volume) 28 U/L 0-55 Serum or plasma protein measurement (mass/volume) 6.0 g/dL 6.4-8.2 Serum or plasma albumin measurement (mass/volume) 3.6 g/dL 3.2-4.5 Lipid 1996 panel - 06/07/16 03:28 Serum or plasma triglyceride measurement (mass/volume) 182 mg/dL <150 Serum or plasma cholesterol measurement (mass/volume) 125 mg/dL < 200 Serum or plasma cholesterol in HDL measurement (mass/v olume) 29 mg/dL 40-60 Cholesterol in LDL [mass/volume] in serum or plasma by direct assay 70 mg/dL 1-129 Serum or plasma cholesterol in VLDL measurement (mass/ volume) 36 mg/dL 5-40 Serum or plasma troponin i.cardiac measu rement (mass/volume) - 06/07/16 03:28 Serum or plasma troponin i.cardiac measurement (mass/v olume) < ng/mL <0.30 Complete blood count (CBC) with automate d white blood cell (WBC) differential - 08/29/16 14:18 Blood leukocytes automated count (number/volume) 4.6 10*3/uL 4.3-11.0 Blood erythrocytes automated count (number/volume) 3.79 10*6/uL 4.35-5.85 Venous blood hemoglobin measurement (mass/volume) 11.2 g/dL 13.3-17.7 Blood hematocrit (volume fraction) 35 % 40-54 Automated erythrocyte mean corpuscular volume 92 [ foz_us] 80-99 Automated erythrocyte mean corpuscular h emoglobin (mass per erythrocyte) 30 pg 25-34 Automated erythrocyte mean corpuscular h emoglobin concentration measurement (mass/volume) 32 g/dL 32-36 Automated erythrocyte distribution width ratio 16. 0 % 10.0- 14.5 Automated blood platelet count (count/volume) 339 10*3/uL [...] 10*3 1.0-4.0 Blood monocytes automated count (number/volume) 0. 5 10*3 0.0-1.0 Automated eosinophil count 0.2 10*3/uL 0 .0-0.3 Automated blood basophil count (count/volume) 0.0 10*3/uL 0.0-0.1 Comprehensive metabolic panel - 08/29/16 14:18 Serum or plasma sodium measurement (moles/volume) 138 mmol/L 135-145 Serum or plasma potassium measurement (moles/volume) 3.7 mmol/L 3.6-5.0 Serum or plasma chloride measurement (moles/volume) 104 mmol/L 98-107 Carbon dioxide 24 mmol/L 21-32 Serum or plasma anion gap determination (moles/volume) 10 mmol/L 5-14 Serum or plasma urea nitrogen measurement (mass/volume ) 9 mg/dL 7-18 Serum or plasma creatinine measurement (mass/volume) 1.32 mg/dL 0.60-1.30 Serum or plasma urea nitrogen/creatinine mass ratio 7 NRG Serum or plasma creatinine measurement w ith calculation of estimated glomerular filtration rate 52 NRG Serum or plasma glucose measurement (mass/volume) 90 mg/dL 70-105 Serum or plasma calcium measurement (mass/volume) 8.9 mg/dL 8.5-10.1 Serum or plasma total bilirubin measurement (mass/volu me) 0.2 mg/dL 0.1-1.0 Serum or plasma alkaline phosphatase liliane surement (enzymatic activity/volume) 41 U/L 40-136 Serum or plasma aspartate aminotransfera se measurement (enzymatic activity/volume) 21 U/L 5-34 Serum or plasma alanine aminotransferase measurement (enzymatic activity/volume) 14 U/L 0-55 Serum or plasma protein measurement (mass/volume) 5.9 g/dL 6.4-8.2 Serum or plasma albumin measurement (mass/volume) 3.2 g/dL 3.2-4.5 Influenza virus A and B antigen detectio n - 05/02/17 13:14 FLU RESULT NEGATIVE FOR INFLUENZA A AND B ANTIGENS BY IA NR Complete blood count (CBC) with automate d white blood cell (WBC) differential - 08/28/17 12:25 Blood leukocytes automated count (number/volume) 5.4 10*3/uL 4.3-11.0 Blood erythrocytes automated count (number/volume) 4.73 10*6/uL 4.35-5.85 Venous blood hemoglobin measurement (mass/volume) 15.0 g/dL 13.3-17.7 Blood hematocrit (volume fraction) 43 % 40-54 Automated erythrocyte mean corpuscular volume 91 [ foz_us] 80-99 Automated erythrocyte mean corpuscular h emoglobin (mass per erythrocyte) 32 pg 25-34 Automated erythrocyte mean corpuscular h emoglobin concentration measurement (mass/volume) 35 g/dL 32-36 Automated erythrocyte distribution width ratio 14. 7 % 10.0- 14.5 Automated blood platelet count (count/volume) 202 10*3/uL [...] 10*3 1.0-4.0 Blood monocytes automated count (number/volume) 0. 4 10*3 0.0-1.0 Automated eosinophil count 0.5 10*3/uL 0 .0-0.3 Automated blood basophil count (count/volume) 0.0 10*3/uL 0.0-0.1 Fibrin D-dimer FEU measurement in platel et poor plasma (mass/volume) - 08/28/17 12:25 Fibrin D-dimer FEU measurement in platelet [...] 5-14 Serum or plasma urea nitrogen measurement (mass/volume ) 18 mg/dL 7-18 Serum or plasma creatinine measurement (mass/volume) 1.21 mg/dL 0.60-1.30 Serum or plasma urea nitrogen/creatinine mass ratio 15 NRG Serum or plasma creatinine measurement w ith calculation of estimated glomerular filtration rate 57 NRG Serum or plasma glucose measurement (mass/volume) 149 mg/dL 70-105 Serum or plasma calcium measurement (mass/volume) 9.5 mg/dL 8.5-10.1 Serum or plasma total bilirubin measurement (mass/volu me) 0.5 mg/dL 0.1-1.0 Serum or plasma alkaline phosphatase liliane surement (enzymatic activity/volume) 79 U/L 40-136 Serum or plasma aspartate aminotransfera se measurement (enzymatic activity/volume) 29 U/L 5-34 Serum or plasma alanine aminotransferase measurement (enzymatic activity/volume) 18 U/L 0-55 Serum or plasma protein measurement (mass/volume) 7.6 g/dL 6.4-8.2 Serum or plasma albumin measurement (mass/volume) 4.0 g/dL 3.2-4.5 Magnesium - 08/28/17 12:25 Magnesium 2.4 mg/dL 1.8-2.4 Serum or plasma troponin i.cardiac measu rement (mass/volume) - 08/28/17 12:25 Serum or plasma troponin i.cardiac measurement (mass/v olume) < ng/mL <0.30 Serum or plasma lithium measurement (mol es/volume) - 08/28/17 12:25 BNP level 21.0 pg/mL <100.0 Complete blood count (CBC) with automate d white blood cell (WBC) differential - 02/17/18 17:15 Blood leukocytes automated count (number/volume) 5.7 10*3/uL 4.3-11.0 Blood erythrocytes automated count (number/volume) 4.66 10*6/uL 4.35-5.85 Venous blood hemoglobin measurement (mass/volume) 14.6 g/dL 13.3-17.7 Blood hematocrit (volume fraction) 43 % 40-54 Automated erythrocyte mean corpuscular volume 93 [ foz_us] 80-99 Automated erythrocyte mean corpuscular h emoglobin (mass per erythrocyte) 31 pg 25-34 Automated erythrocyte mean corpuscular h emoglobin concentration measurement (mass/volume) 34 g/dL 32-36 Automated erythrocyte distribution width ratio 14. 2 % 10.0- 14.5 Automated blood platelet count (count/volume) 200 10*3/uL 130-400 Automated blood platelet mean volume measurement 9.3 [foz_us] 7.4-10.4 Automated blood neutrophils/100 leukocytes 62 % 42-75 Automated blood lymphocytes/100 leukocytes 16 % 12-44 Blood monocytes/100 leukocytes 9 % 0-12 Automated blood eosinophils/100 leukocytes 12 % 0-10 Automated blood basophils/100 leukocytes 1 % 0-10 Blood neutrophils automated count (number/volume) 3.5 10*3 1.8-7.8 Blood lymphocytes automated count (number/volume) 0.9 10*3 1.0-4.0 Blood monocytes automated count (number/volume) 0. 5 10*3 0.0-1.0 Automated eosinophil count 0.7 10*3/uL 0 .0-0.3 Automated blood basophil count (count/volume) 0.0 10*3/uL 0.0-0.1 Comprehensive metabolic panel - 02/17/18 17:15 Serum or plasma sodium measurement (moles/volume) 140 mmol/L 135-145 Serum or plasma potassium measurement (moles/volume) 4.0 mmol/L 3.6-5.0 Serum or plasma chloride measurement (moles/volume) 103 mmol/L 98-107 Carbon dioxide 23 mmol/L 21-32 Serum or plasma anion gap determination (moles/volume) 14 mmol/L 5-14 Serum or plasma urea nitrogen measurement (mass/volume ) 19 mg/dL 7-18 Serum or plasma creatinine measurement (mass/volume) 1.34 mg/dL 0.60-1.30 Serum or plasma urea nitrogen/creatinine mass ratio 14 NRG Serum or plasma creatinine measurement w ith calculation of estimated glomerular filtration rate 51 NRG Serum or plasma glucose measurement (mass/volume) 96 mg/dL 70-105 Serum or plasma calcium measurement (mass/volume) 10.3 mg/dL 8.5-10.1 Serum or plasma total bilirubin measurement (mass/volu me) 0.4 mg/dL 0.1-1.0 Serum or plasma alkaline phosphatase liliane surement (enzymatic activity/volume) 82 U/L 40-136 Serum or plasma aspartate aminotransfera se measurement (enzymatic activity/volume) 22 U/L 5-34 Serum or plasma alanine aminotransferase measurement (enzymatic activity/volume) 20 U/L 0-55 Serum or plasma protein measurement (mass/volume) 8.1 g/dL 6.4-8.2 Serum or plasma albumin measurement (mass/volume) 4.4 g/dL 3.2-4.5 CALCIUM CORRECTED 10.0 mg/dL 8.5-10.1 Magnesium - 02/17/18 17:15 Magnesium 2.5 mg/dL 1.8-2.4 Serum or plasma C reactive protein measu rement (mass/volume) - 02/17/18 17:15 Serum or plasma C reactive protein measurement (mass/v olume) 0.16 mg/dL 0.00-0.50 Serum or plasma troponin i.cardiac measu rement (mass/volume) - 02/17/18 17:15 Serum or plasma troponin i.cardiac measurement (mass/v olume) < ng/mL <0.30 PT panel in platelet poor plasma by coag ulation assay - 02/17/18 17:15 Prothrombin time (PT) in platelet poor plasma by coagu lation assay 13.1 s 12.2-14.7 INR in platelet poor plasma or blood by coagulation as say 1.0 0.8-1.4 Activated partial thromboplastin time (a PTT) in platelet poor plasma bycoagulation assay - 02/17/18 17:15 Activated partial thromboplastin time (a PTT) in platelet poor plasma bycoagulation assay 30 s 24-35 Myoglobin, serum - 02/17/18 17:15 Myoglobin, serum 108.4 ng/mL 10.0-92.0 Blood manual differential performed dete ction - 02/17/18 17:15 Blood monocytes/100 leukocytes 8 % NRG Manual blood segmented neutrophils/100 leukocytes 63 % NRG Manual blood lymphocytes/100 leukocytes 21 % NRG Manual eosinophils/100 leukocytes in nose 8 % NRG Blood erythrocyte morphology finding identification NORMAL NRG Serum or plasma lithium measurement (mol es/volume) - 02/17/18 17:15 BNP level 23.9 pg/mL <100.0 Complete blood count (CBC) with automate d white blood cell (WBC) differential - 12/12/18 12:49 Blood leukocytes automated count (number/volume) 7.1 10*3/uL 4.3-11.0 Blood erythrocytes automated count (number/volume) 5.19 10*6/uL 4.35-5.85 Venous blood hemoglobin measurement (mass/volume) 16.1 g/dL 13.3-17.7 Blood hematocrit (volume fraction) 48 % 40-54 Automated erythrocyte mean corpuscular volume 93 [ foz_us] 80-99 Automated erythrocyte mean corpuscular h emoglobin (mass per erythrocyte) 31 pg 25-34 Automated erythrocyte mean corpuscular h emoglobin concentration measurement (mass/volume) 33 g/dL 32-36 Automated erythrocyte distribution width ratio 14. 9 % 10.0- 14.5 Automated blood platelet count (count/volume) 206 10*3/uL 130-400 Automated blood platelet mean volume measurement 9.6 [foz_us] 7.4-10.4 Automated blood neutrophils/100 leukocytes 87 % 42-75 Automated blood lymphocytes/100 leukocytes 4 % 12-44 Blood monocytes/100 leukocytes 3 % 0-12 Automated blood eosinophils/100 leukocytes 6 % 0-10 Automated blood basophils/100 leukocytes 0 % 0-10 Blood neutrophils automated count (number/volume) 6.2 10*3 1.8-7.8 Blood lymphocytes automated count (number/volume) 0.3 10*3 1.0-4.0 Blood monocytes automated count (number/volume) 0. 2 10*3 0.0-1.0 Automated eosinophil count 0.4 10*3/uL 0 .0-0.3 Automated blood basophil count (count/volume) 0.0 10*3/uL 0.0-0.1 PT panel in platelet poor plasma by coag ulation assay - 12/12/18 12:49 Prothrombin time (PT) in platelet poor plasma by coagu lation assay 13.7 s 12.2-14.7 INR in platelet poor plasma or blood by coagulation as say 1.0 0.8-1.4 Activated partial thromboplastin time (a PTT) in platelet poor plasma bycoagulation assay - 12/12/18 12:49 Activated partial thromboplastin time (a PTT) in platelet poor plasma bycoagulation assay 30 s 24-35 Comprehensive metabolic panel - 12/12/18 12:49 Serum or plasma sodium measurement (moles/volume) 137 mmol/L 135-145 Serum or plasma potassium measurement (moles/volume) 4.4 mmol/L 3.6-5.0 Serum or plasma chloride measurement (moles/volume) 101 mmol/L 98-107 Carbon dioxide 23 mmol/L 21-32 Serum or plasma anion gap determination (moles/volume) 13 mmol/L 5-14 Serum or plasma urea nitrogen measurement (mass/volume ) 22 mg/dL 7-18 Serum or plasma creatinine measurement (mass/volume) 1.78 mg/dL 0.60-1.30 Serum or plasma urea nitrogen/creatinine mass ratio 12 NRG Serum or plasma creatinine measurement w ith calculation of estimated glomerular filtration rate 37 NRG Serum or plasma glucose measurement (mass/volume) 142 mg/dL 70-105 Serum or plasma calcium measurement (mass/volume) 9.9 mg/dL 8.5-10.1 Serum or plasma total bilirubin measurement (mass/volu me) 0.8 mg/dL 0.1-1.0 Serum or plasma alkaline phosphatase liliane surement (enzymatic activity/volume) 82 U/L 40-136 Serum or plasma aspartate aminotransfera se measurement (enzymatic activity/volume) 23 U/L 5-34 Serum or plasma alanine aminotransferase measurement (enzymatic activity/volume) 20 U/L 0-55 Serum or plasma protein measurement (mass/volume) 8.5 g/dL 6.4-8.2 Serum or plasma albumin measurement (mass/volume) 4.8 g/dL 3.2-4.5 Magnesium - 12/12/18 12:49 Magnesium 2.3 mg/dL 1.6-2.4 Serum or plasma troponin i.cardiac measu rement (mass/volume) - 12/12/18 12:49 Serum or plasma troponin i.cardiac measurement (mass/v olume) < ng/mL <0.028 Myoglobin, serum - 12/12/18 12:49 Myoglobin, serum 319.2 ng/mL 10.0-92.0 Manual absolute plasma cell count - 11/25 11/12 12:49 Blood monocytes/100 leukocytes 3 % NRG Manual blood segmented neutrophils/100 leukocytes 83 % NRG Blood band neutrophils/100 leukocytes 2 % NRG Manual blood lymphocytes/100 leukocytes 5 % NRG Manual eosinophils/100 leukocytes in nose 7 % NRG Blood erythrocyte morphology finding identification NORMAL NRG Serum or plasma troponin i.cardiac measu rement (mass/volume) - 12/12/18 14:50 Serum or plasma troponin i.cardiac measurement (mass/v olume) < ng/mL <0.028 Myoglobin, serum - 12/12/18 14:50 Myoglobin, serum 237.2 ng/mL 10.0-92.0 Complete urinalysis with reflex to cultu re - 03/21/19 10:20 Urine color determination JOE NRG Urine clarity determination CLOUDY NR G Urine pH measurement by test strip 7.0 5-9 Specific gravity of urine by test strip 1.025 1.016-1.022 Urine protein assay by test strip, semi-quantitative 3+ NEGATIVE Urine glucose detection by automated test strip NE GATIVE NEGATIVE Erythrocytes detection in urine sediment by light micr oscopy 3+ NEGATIVE Urine ketones detection by automated test strip NE GATIVE NEGATIVE Urine nitrite detection by test strip POSITIVE NEGATIVE Urine total bilirubin detection by test strip 1+ NEGATIVE Urine urobilinogen measurement by automated test strip (mass/volume) 1.0 mg/dL < = 1.0 Urine leukocyte esterase detection by dipstick 2+ NEGATIVE Automated urine sediment erythrocyte cou nt by microscopy (number/high power field) TNTC NRG Automated urine sediment leukocyte count by microscopy (number/high power field) [HPF] NRG Bacteria detection in urine sediment by light microsco py MODERATE NRG Crystals detection in urine sediment by light microsco py NONE NRG Casts detection in urine sediment by light microscopy NONE NRG Mucus detection in urine sediment by light microscopy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
== END 2019-05-13 13:10 | disposition home or self-care (01) | DRG 699 ==
LOC: EDUNIT# 14:04 → ER 14:05 → 4TH 16:15 → OBSVTOIN 05-13 08:10
PROVIDERS: ADMIT Family Medicine; ATTEND Family Medicine
DX: T83.592A Infection and inflammatory reaction due to indwelling ureteral stent, initial encounter (principal); N39.0 Urinary tract infection, site not specified; R41.0 Disorientation, unspecified; I25.10 Atherosclerotic heart disease of native coronary artery without angina pectoris; E78.00 Pure hypercholesterolemia, unspecified; M19.90 Unspecified osteoarthritis, unspecified site; N18.9 Chronic kidney disease, unspecified; Z85.46 Personal history of malignant neoplasm of prostate; Z79.82 Long term (current) use of aspirin; Z93.3 Colostomy status; N99.521 Infection of incontinent external stoma of urinary tract; I25.2 Old myocardial infarction; Z85.51 Personal history of malignant neoplasm of bladder; Z79.4 Long term (current) use of insulin; Z95.1 Presence of aortocoronary bypass graft; Z87.891 Personal history of nicotine dependence; Z90.5 Acquired absence of kidney; Z90.6 Acquired absence of other parts of urinary tract; Y83.8 Other surgical procedures as the cause of abnormal reaction of the patient, or of later complication, without mention of misadventure at the time of the procedure
CPT/HCPCS: 36415; 70450; 71045; 80053; 81000; 83605; 84439; 84443; 85007; 85027; 85610; 85730; 87040; 87077; 87088; 87186; G0378

== ENCOUNTER → 2019-05-16 | Outpatient (CLI) | payer MEDICARE ==
[~2019-05-16] MED LIST changes: +ACET325C7 PO; +BUDE10.22 IH; +CEPH-506 PO; +CEPH250C PO; +CIPR250T3 PO; +ISOS30TA3 PO; +LISI-556 PO; +LORA1TAB59 PO; +OMEGA PO; +OMEP40CA27 PO; +ONDA4TAB11 PO; +TEMA30CA6 PO; +TRAM-42 PO; +TURMERIC PO; +ZINC PO
--- NOTE | 2019-05-16 16:55 | Diagnostic Imaging Report ---
PROCEDURE: MRI right joint upper extremity without contrast. TECHNIQUE: Multiplanar, multisequence non contrast-enhanced MRI of the right upper extremity was accomplished. INDICATION: Right shoulder pain and decreased range of motion. COMPARISON: None. FINDINGS: There is motion artifact on multiple sequences. Scan times were reduced due to patient's pain and claustrophobia. No acute fracture is seen in the right shoulder. Alignment appears normal. Subcortical cyst-like changes are seen in the acromion as well as the posterior glenoid. There are moderate degenerative changes in the glenohumeral joint. No joint effusion is seen. There is a small high-grade partial-thickness tear at the insertion of the supraspinatus tendon measuring approximately 1 cm in width. No high-grade partial-thickness or full-thickness tears are seen in the infraspinatus or teres minor tendons. The subscapularis tendon demonstrates high-grade partial-thickness tearing at the articular surface distally, with what appears to be a small full-thickness component (image 8 series 3). There is atrophy in the subscapularis and teres minor musculature. The long head of the biceps tendon appears normal in course and signal. The glenoid labrum demonstrates degeneration throughout. No paralabral cyst is seen. The acromion has a curved undersurface without hooking. The coracoclavicular and coracoacromial ligaments are intact. The soft tissues about the right shoulder are otherwise unremarkable. IMPRESSION: 1. High-grade partial thickness tearing with small full-thickness component of the distal subscapularis tendon. There is moderate associated muscular atrophy. 2. Small low-grade partial-thickness tear at the insertion of the supraspinatus tendon. 3. Moderate atrophy of the teres minor muscle. No masses are seen in the quadrilateral space. 4. Moderate degenerative changes in the glenohumeral joint. Dictated by: Dictated on workstation # [id number]
== END ==
LOC: RAD 14:53
PROVIDERS: ATTEND Orthopaedic Surgery
DX: M75.101 Unspecified rotator cuff tear or rupture of right shoulder, not specified as traumatic (principal); M75.31 Calcific tendinitis of right shoulder; M19.011 Primary osteoarthritis, right shoulder
CPT/HCPCS: 73221

== ENCOUNTER 2019-05-24 15:48 | Emergency (ER) | payer MEDICARE ==
[~2019-05-24] VITALS: Ht 170 cm; Wt 81.8 kg
--- NOTE | 2019-05-24 16:00 | ED General ---
General Chief Complaint: Neurological Problems Stated Complaint: CONFUSION Source of Information: Patient Exam Limitations: No Limitations History of Present Illness Date Seen by Provider: May 24, 2019 Time Seen by Provider: 15:57 Initial Comments 83-year-old male presents because he had an episode of "confusion" patient is no longer confused and has no other complaints. Patient was taking a nap and right after he awoke he was confused about where he was at and who he was with. Patient symptoms have now resolved. His reports that he's frequently lidocaine in the night with similar symptoms. He recently had a urinary tract infection but at this time does not have any fevers chills nausea vomiting dysuria. Patient does have a urostomy with clear urine. Allergies and Home Medications Allergies Coded Allergies: NKANo Known Allergies (Verified Allergy, Mild, 11/24/11) Uncoded Allergies: BEE STINGS (Allergy, Severe, SOA/HIVES, 11/01/10) Home Medications Acetaminophen 325 Mg Capsule, 650 MG PO Q6H PRN for PAIN-MILD (1-4), (Reported) Aspirin 81 Mg Tablet.dr, 81 MG PO TuSa, (Reported) Calcium Carbonate/Vitamin D3 1 Each Tablet, 1 TAB PO BID, (Reported) Ciprofloxacin HCl 500 Mg Tablet, 500 MG PO DAILY Prescribed by: JAMILA DIAZ on 05/13/19 1219 Diltiazem HCl 90 Mg Tablet, 90 MG PO HS, (Reported) Docusate Sodium 100 Mg Capsule, 100 MG PO DAILY, (Reported) Docusate Sodium 100 Mg Capsule, 200 MG PO HS, (Reported) TAKES 2 (100 MG) CAPSULES Gemfibrozil 600 Mg Tablet, 600 MG PO DAILY, (Reported) Isosorbide Mononitrate 30 Mg Tab.er.24h, 30 MG PO DAILY, (Reported) Levothyroxine Sodium 50 Mcg Tablet, 50 MCG PO DAILY, (Reported) Lisinopril 5 Mg Tablet, 2.5 MG PO HS, (Reported) Loratadine/Pseudoephedrine 1 Each Tab.er.12h, 1 EACH PO Q12H PRN for CONGESTION, (Reported) Multivitamin 1 Each Tablet, 1 TAB PO DAILY, (Reported) Omeprazole 40 Mg Capsule.dr, 40 MG PO DAILY, (Reported) Ondansetron 4 Mg Tab.rapdis, 4 MG PO Q6H PRN for NAUSEA/VOMITING, (Reported) Pramipexole Di-HCl 0.25 Mg Tablet, 0.25 MG PO DAILY, (Reported) Pramipexole Di-HCl 0.25 Mg Tablet, 0.5 MG PO HS, (Reported) TAKES 2 (0.25 MG) TABLETS Rosuvastatin Calcium 20 Mg Tablet, 20 MG PO HS, (Reported) Temazepam 30 Mg Capsule, 30 MG PO HS, (Reported) Tramadol HCl 50 Mg Tablet, 50 MG PO Q6H PRN for PAIN-MODERATE (5-7), (Reported) [[place]/Zinc/Turmeric] , 1 CAP PO BID, (Reported) Patient Home Medication List Home Medication List Reviewed: Yes Review of Systems Review of Systems Constitutional: No chills, No fever Respiratory: no symptoms reported Cardiovascular: no symptoms reported Gastrointestinal: no symptoms reported Genitourinary: no symptoms reported Musculoskeletal: no symptoms reported Skin: no symptoms reported Psychiatric/Neurological: See HPI Past Tzvhque-Fupgzd-Feyvqa Hx Past Med/Social Hx: Reviewed Nursing Past Med/Soc Hx Patient Social History Former Smoker, Quit: Jun 07, 1974 2nd Hand Smoke Exposure: No Recent Foreign Travel: No Contact w/Someone Who Travel: No Recent Hopitalizations: No Immunizations Up To Date Tetanus Booster (TDap): Unknown Date of Pneumonia Vaccine: Feb 03, 2015 Date of Influenza Vaccine: Jan 12, 2019 Seasonal Allergies Seasonal Allergies: Yes Past Medical History Surgeries: Yes (LEFT WRIST, LEFT KNEE SCOPE, TOTAL LEFT KNEE, HEMORRHOIDS,TURP ) Abdominal, Bladder Surgery, Coronary Stent, Joint Replacement, Nephrectomy Respiratory: No Currently Using CPAP: No Currently Using BIPAP: No Cardiac: Yes (STENTS X5) Coronary Artery Disease, Heart Attack, High Cholesterol Neurological: No Reproductive Disorders: No Sexually Transmitted Disease: No HIV/AIDS: No Prostate Problems Gastrointestinal: Yes (colostomy) Obstructive Bowel Musculoskeletal: Yes Arthritis Endocrine: No Hearing Impairment: Denies, Hearing Aide Right, Hearing Aide Left Cancer: Yes (NOSE) Bladder, Prostate Psychosocial: No Integumentary: No Blood Disorders: No Adverse Reaction/Blood Tranf: No Family Medical History Arthritis 19 FATHER 19 MOTHER Diabetes mellitus 19 FATHER Myocardial infarction 19 FATHER 19 MOTHER Respiratory disorder G8 SISTER No Family History of: AIDS Bill's disease Alcoholism Alzheimer's disease Cancer of mouth Colon cancer Completed stroke Dementia Kidney disease Parkinson's disease Prostate cancer Psychosocial problem Seizure disorder Severe allergy Thyroid disease Tuberculosis No Pertinent Family Hx Physical Exam Vital Signs Vital Signs - First Documented 05/24/19 15:53 Temp 36.1 Pulse 94 B/P (MAP) 130/88 (102) Capillary Refill : Height, Weight, BMI Height: 5'7.00" Weight: 195lbs. 0oz. 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 Norm as Tested Skin: Normal Color, Warm/Dry Lymphatic: No Adenopathy Procedures/Interventions Suture Size: 4-0 Progress/Results/Core Measures Suspected Sepsis SIRS Temperature: Pulse: Respiratory Rate: Laboratory Tests 05/24/19 16:12: White Blood Count 6.6 Blood Pressure / Mean: Laboratory Tests 05/24/19 16:12: Creatinine 2.35H, Platelet Count 385 Results/Orders Lab Results Laboratory Tests Test 05/24/19 16:02 05/24/19 16:12 Range/Units Urine Color YELLOW Urine Clarity CLEAR Urine pH 7.5 5-9 Urine Specific [place] 1.015 L 1.016-1.022 Urine Protein TRACE H NEGATIVE Urine Glucose (UA) NEGATIVE NEGATIVE Urine Ketones NEGATIVE NEGATIVE Urine Nitrite POSITIVE H NEGATIVE Urine Bilirubin NEGATIVE NEGATIVE Urine Urobilinogen 0.2 < = 1.0 MG/DL Urine Leukocyte Esterase TRACE H NEGATIVE Urine RBC (Auto) 1+ H NEGATIVE Urine RBC 5-10 H /HPF Urine WBC 2-5 /HPF Urine Squamous Epithelial Cells RARE /HPF Urine Crystals NONE /LPF Urine Bacteria MODERATE H /HPF Urine Casts NONE /LPF Urine Mucus NEGATIVE /LPF Urine Culture Indicated YES White Blood Count 6.6 4.3-11.0 10^3/uL Red Blood Count 3.96 L 4.35-5.85 10^6/uL Hemoglobin 11.6 L 13.3-17.7 G/DL Hematocrit 36 L 40-54 % Mean Corpuscular Volume 92 80-99 FL Mean Corpuscular Hemoglobin 29 25-34 PG Mean Corpuscular Hemoglobin Concent 32 32-36 G/DL Red Cell Distribution Width 15.8 H 10.0-14.5 % Platelet Count 385 130-400 10^3/uL Mean Platelet Volume 9.4 7.4-10.4 FL Neutrophils (%) (Auto) 74 42-75 % Lymphocytes (%) (Auto) 12 12-44 % Monocytes (%) (Auto) 9 0-12 % Eosinophils (%) (Auto) 4 0-10 % Basophils (%) (Auto) 1 0-10 % Neutrophils # (Auto) 4.9 1.8-7.8 X 10^3 Lymphocytes # (Auto) 0.8 L 1.0-4.0 X 10^3 Monocytes # (Auto) 0.6 0.0-1.0 X 10^3 Eosinophils # (Auto) 0.3 0.0-0.3 10^3/uL Basophils # (Auto) 0.0 0.0-0.1 10^3/uL Sodium Level 137 135-145 MMOL/L Potassium Level 4.9 3.6-5.0 MMOL/L Chloride Level 101 98-107 MMOL/L Carbon Dioxide Level 23 21-32 MMOL/L Anion Gap 13 5-14 MMOL/L Blood Urea Nitrogen 30 H 7-18 MG/DL Creatinine 2.35 H 0.60-1.30 MG/DL Estimat Glomerular Filtration Rate 27 BUN/Creatinine Ratio 13 Glucose Level 97 70-105 MG/DL Calcium Level 9.8 8.5-10.1 MG/DL My Orders Orders - MEADE,RON L DO Basic Metabolic Panel (05/24/19 16:00) Cbc With Automated Diff (05/24/19 16:00) Ua Culture If Indicated (05/24/19 16:00) Urine Culture (05/24/19 16:02) Vital Signs/I&O 05/24/19 15:53 Temp 36.1 Pulse 94 B/P (MAP) 130/88 (102) Capillary Refill : Departure Impression Primary Impression: Urinary tract infection Qualified Codes: T83.511A - Infection and inflammatory reaction due to indwelling urethral catheter, initial encounter; N39.0 - Urinary tract infection, site not specified Disposition: 01 HOME, SELF-CARE Condition: Stable Departure-Patient Inst. Referrals: BLAKE BOYCE MD (PCP/Family) Primary Care Physician Patient Instructions: Urinary Tract Infection, Adult (DC) Add. Discharge Instructions: Emergency department focuses on treating and ruling out life-threatening diseases. Whenever possible, a diagnosis is given. However, most patients are given an impression based on their history, physical exam, and workup during your brief time in the ER. Information about probable diagnosis and other educational material has been provided. Please take the time to read and understand this information. It is very important that you follow up with a physician as discussed during the visit today. Failure to adhere to your follow-up instructions may lead to severe disability, injury, or so please make sure to keep your appointments or obtain one as requested. Please keep in mind the emergency department is not designed to your primary care or "family doctor" and nonurgent issues are best evaluated by an outpatient physician All discharge instructions reviewed with patient and/or family. Voiced understanding. Scripts Cephalexin (Keflex) 500 Mg Capsule 500 MG PO BID for 7 Days, #14 CAP Prov: RON MEADE DO 05/24/19 RON MEADE DO May 24, 2019 16:00
[2019-05-24 16:09] LABS: BILIRUBIN,URINE NEGATIVE (NEGATIVE); CLARITY,URINE CLEAR; COLOR,URINE YELLOW; GLUCOSE, URINE (UA) NEGATIVE (NEGATIVE); KETONES,URINE NEGATIVE (NEGATIVE); LEUKOCYTE ESTERASE ,URINE TRACE (NEGATIVE); NITRITE,URINE POSITIVE (NEGATIVE); PH,URINE 7.5 (5-9); PROTEIN,URINE TRACE (NEGATIVE)
[2019-05-24 16:22] LABS: BASOPHILS % (AUTO) 1 % (0-10); EOSINOPHILS # (AUTO) 0.3 10^3/uL (0.0-0.3); EOSINOPHILS % (AUTO) 4 % (0-10); HEMATOCRIT 36 % (40-54); HEMOGLOBIN 11.6 G/DL (13.3-17.7); LYMPHOCYTES # (AUTO) 0.8 X 10^3 (1.0-4.0); LYMPHOCYTES % (AUTO) 12 % (12-44); MEAN CORPUSCULAR HEMOGLOBIN 29 PG (25-34); MEAN CORPUSCULAR HGB CONC 32 G/DL (32-36); MEAN CORPUSCULAR VOLUME 92 FL (80-99); MEAN PLATELET VOLUME 9.4 FL (7.4-10.4); MONOCYTES # (AUTO) 0.6 X 10^3 (0.0-1.0); MONOCYTES % (AUTO) 9 % (0-12); NEUTROPHILS # (AUTO) 4.9 X 10^3 (1.8-7.8); NEUTROPHILS % (AUTO) 74 % (42-75); PLATELET COUNT 385 10^3/uL (130-400); RED CELL DISTRIBUTION WIDTH 15.8 % (10.0-14.5); WHITE BLOOD COUNT 6.6 10^3/uL (4.3-11.0)
[2019-05-24 16:36] LABS: BACTERIA,URINE MODERATE /HPF
[2019-05-24 16:37] LABS: SQUAMOUS EPITHELIAL CELL,UR RARE /HPF
[2019-05-24 16:50] LABS: CALCIUM 9.8 MG/DL (8.5-10.1); CREATININE SERUM 2.35 MG/DL (0.60-1.30); POTASSIUM 4.9 MMOL/L (3.6-5.0)
[2019-05-24] MEDS ORDERED: CEPH-507 PO (17:05)
[2019-05-24 17:17] VITALS: BP 130/88
== END 2019-05-24 17:18 | disposition home or self-care (01) ==
LOC: EDUNIT# 15:48 → ER 15:49
DX: N39.0 Urinary tract infection, site not specified (principal); I25.2 Old myocardial infarction; E78.00 Pure hypercholesterolemia, unspecified; I25.10 Atherosclerotic heart disease of native coronary artery without angina pectoris; Z79.82 Long term (current) use of aspirin; Z95.5 Presence of coronary angioplasty implant and graft; Z85.46 Personal history of malignant neoplasm of prostate; Z85.51 Personal history of malignant neoplasm of bladder; Z82.49 Family history of ischemic heart disease and other diseases of the circulatory system
CPT/HCPCS: 36415; 80048; 81000; 85025; 87088

== ENCOUNTER 2019-08-20 12:53 | Emergency (ER) | payer MEDICARE ==
[~2019-08-20] VITALS: Ht 172 cm; Wt 90.7 kg
[2019-08-20] MEDS ORDERED: NS IV 500 ML 500 ML IV ONE (13:26)
[2019-08-20 13:42] LABS: BASOPHILS % (AUTO) 0 % (0-10); EOSINOPHILS # (AUTO) 0.2 10^3/uL (0.0-0.3); EOSINOPHILS % (AUTO) 3 % (0-10); HEMATOCRIT 37 % (40-54); HEMOGLOBIN 11.8 G/DL (13.3-17.7); LYMPHOCYTES # (AUTO) 0.6 X 10^3 (1.0-4.0); LYMPHOCYTES % (AUTO) 10 % (12-44); MEAN CORPUSCULAR HEMOGLOBIN 29 PG (25-34); MEAN CORPUSCULAR HGB CONC 32 G/DL (32-36); MEAN CORPUSCULAR VOLUME 90 FL (80-99); MEAN PLATELET VOLUME 9.2 FL (7.4-10.4); MONOCYTES # (AUTO) 0.5 X 10^3 (0.0-1.0); MONOCYTES % (AUTO) 8 % (0-12); NEUTROPHILS # (AUTO) 4.7 X 10^3 (1.8-7.8); NEUTROPHILS % (AUTO) 78 % (42-75); PLATELET COUNT 201 10^3/uL (130-400); RED CELL DISTRIBUTION WIDTH 16.3 % (10.0-14.5)
[2019-08-20 14:00] LABS: ALBUMIN 3.9 GM/DL (3.2-4.5)
[2019-08-20 14:01] LABS: CHLORIDE 107 MMOL/L (98-107); POTASSIUM 4.6 MMOL/L (3.6-5.0); SODIUM 140 MMOL/L (135-145)
[2019-08-20 14:02] LABS: CALCIUM 8.8 MG/DL (8.5-10.1)
[2019-08-20 14:03] LABS: GLUCOSE 154 MG/DL (70-105); TOTAL PROTEIN 7.2 GM/DL (6.4-8.2)
[2019-08-20 14:04] LABS: CARBON DIOXIDE 21 MMOL/L (21-32)
[2019-08-20 14:05] LABS: BILIRUBIN,TOTAL 0.3 MG/DL (0.1-1.0)
[2019-08-20 14:06] LABS: ALKALINE PHOSPHATASE 82 U/L (40-136)
[2019-08-20 14:07] LABS: CREATININE SERUM 2.41 MG/DL (0.60-1.30); GFR ESTIMATED 26
[2019-08-20 14:08] LABS: BUN/CREATININE RATIO 11
[2019-08-20 14:09] LABS: MAGNESIUM 2.3 MG/DL (1.6-2.4)
[2019-08-20 14:10] LABS: ALANINE AMINOTRANSFERASE 14 U/L (0-55)
[2019-08-20 14:30] LABS: FREE T4 (FREE THYROXINE) 0.95 NG/DL (0.70-1.48)
--- NOTE | 2019-08-20 14:32 | ED General ---
General Chief Complaint: Altered Mental Status Stated Complaint: DIZZY,CONFUSED Nursing Triage Note: pt presents to ed with complaints of confusion this am, dizziness, and malaise. Nursing Sepsis Screen: No Definite Risk Source of Information: Patient, Family Exam Limitations: No Limitations History of Present Illness Date Seen by Provider: August 20, 2019 Time Seen by Provider: 13:16 Initial Comments This 84-year-old gentleman presents to the emergency room with complaints of feeling ill for the past couple of days. He has just not been himself and is occasionally confused and has memory issues. He vomited once today. He has not had much appetite. 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 He has history of recent urinary tract infection and anemia. He has been feeling fatigued recently and has been falling asleep very easily, sometimes in mid sentence according to his . She has been giving him Azo and pyridium for the past 2 days. He has not improved and she has become concerned. His primary care providers Dr. Boyce. His urologist is at [facility]. Allergies and Home Medications Allergies Coded Allergies: NKANo Known Allergies (Verified Allergy, Mild, 11/24/11) Uncoded Allergies: BEE STINGS (Allergy, Severe, SOA/HIVES, 11/01/10) Home Medications Acetaminophen 325 Mg Capsule, 650 MG PO Q6H PRN for PAIN-MILD (1-4), (Reported) Aspirin 81 Mg Tablet.dr, 81 MG PO [place], (Reported) Calcium Carbonate/Vitamin D3 1 Each Tablet, 1 TAB PO BID, (Reported) Cephalexin 500 Mg Capsule, 500 MG PO BID Prescribed by: RON MEADE on 05/24/19 1705 Cephalexin 500 Mg Capsule, 500 MG PO BID Prescribed by: YAW CELESTE on 08/20/19 1609 Ciprofloxacin HCl 500 Mg Tablet, 500 MG PO DAILY Prescribed by: JAMILA DIAZ on 05/13/19 1219 Diltiazem HCl 90 Mg Tablet, 90 MG PO HS, (Reported) Docusate Sodium 100 Mg Capsule, 100 MG PO DAILY, (Reported) Docusate Sodium 100 Mg Capsule, 200 MG PO HS, (Reported) TAKES 2 (100 MG) CAPSULES Gemfibrozil 600 Mg Tablet, 600 MG PO DAILY, (Reported) Isosorbide Mononitrate 30 Mg Tab.er.24h, 30 MG PO DAILY, (Reported) Levothyroxine Sodium 50 Mcg Tablet, 50 MCG PO DAILY, (Reported) Lisinopril 5 Mg Tablet, 2.5 MG PO HS, (Reported) Loratadine/Pseudoephedrine 1 Each Tab.er.12h, 1 EACH PO Q12H PRN for CONGESTION, (Reported) Multivitamin 1 Each Tablet, 1 TAB PO DAILY, (Reported) Omeprazole 40 Mg Capsule.dr, 40 MG PO DAILY, (Reported) Ondansetron 4 Mg Tab.rapdis, 4 MG PO Q6H PRN for NAUSEA/VOMITING, (Reported) Pramipexole Di-HCl 0.25 Mg Tablet, 0.25 MG PO DAILY, (Reported) Pramipexole Di-HCl 0.25 Mg Tablet, 0.5 MG PO HS, (Reported) TAKES 2 (0.25 MG) TABLETS Rosuvastatin Calcium 20 Mg Tablet, 20 MG PO HS, (Reported) Temazepam 30 Mg Capsule, 30 MG PO HS, (Reported) Tramadol HCl 50 Mg Tablet, 50 MG PO Q6H PRN for PAIN-MODERATE (5-7), (Reported) [[place]/Zinc/Turmeric] , 1 CAP PO BID, (Reported) Patient Home Medication List Home Medication List Reviewed: Yes Review of Systems Review of Systems Constitutional: see HPI; No chills; dizziness; No fever; weakness EENTM: no symptoms reported Respiratory: no symptoms reported Cardiovascular: no symptoms reported Gastrointestinal: see HPI Genitourinary: see HPI Musculoskeletal: no symptoms reported Skin: no symptoms reported Psychiatric/Neurological: See HPI Hematologic/Lymphatic: No Symptoms Reported Immunological/Allergic: no symptoms reported Past Myehvhg-Jtmybv-Eebhfi Hx Patient Social History Alcohol Use: Denies Use Recreational Drug Use: No Smoking Status: Former Smoker Former Smoker, Quit: Jun 07, 1974 2nd Hand Smoke Exposure: No Recent Foreign Travel: No Contact w/Someone Who Travel: No Recent Infectious Disease Expo: No Recent Hopitalizations: Yes Physical Abuse: No Sexual Abuse: No Mistreated: No Fear: No Immunizations Up To Date Tetanus Booster (TDap): Unknown Date of Pneumonia Vaccine: Feb 03, 2015 Date of Influenza Vaccine: Jan 12, 2019 Seasonal Allergies Seasonal Allergies: Yes Past Medical History Surgeries: Yes (LEFT WRIST, LEFT KNEE SCOPE, TOTAL LEFT KNEE, HEMORRHOIDS,TURP ) Abdominal, Bladder Surgery, Coronary Stent, Joint Replacement, Nephrectomy Respiratory: No Currently Using CPAP: No Currently Using BIPAP: No Cardiac: Yes (STENTS X5) Coronary Artery Disease, Heart Attack, High Cholesterol Neurological: No Reproductive Disorders: No Sexually Transmitted Disease: No HIV/AIDS: No Genitourinary: Yes (urostomy) Prostate Problems Gastrointestinal: Yes (colostomy) Obstructive Bowel Musculoskeletal: Yes Arthritis Endocrine: No Hearing Impairment: Denies, Hearing Aide Right, Hearing Aide Left Cancer: Yes (NOSE) Bladder, Prostate Psychosocial: No Integumentary: No Blood Disorders: No Adverse Reaction/Blood Tranf: No Family Medical History Arthritis 19 FATHER 19 MOTHER Diabetes mellitus 19 FATHER Myocardial infarction 19 FATHER 19 MOTHER Respiratory disorder G8 SISTER No Family History of: AIDS Grainger's disease Alcoholism Alzheimer's disease Cancer of mouth Colon cancer Completed stroke Dementia Kidney disease Parkinson's disease Prostate cancer Psychosocial problem Seizure disorder Severe allergy Thyroid disease Tuberculosis No Pertinent Family Hx Physical Exam Vital Signs Vital Signs - First Documented 08/20/19 13:38 Temp 36.5 Pulse 77 Resp 18 B/P (MAP) 130/59 (82) Pulse Ox 94 Capillary Refill : Less Than 3 Seconds Height, Weight, BMI Height: 5'7.00" Weight: 195lbs. 0oz. 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-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 Norm as Tested Skin: Normal Color, Warm/Dry Procedures/Interventions Suture Size: 4-0 Progress/Results/Core Measures Suspected Sepsis Recent Fever Within 48 Hours: No Infection Criteria Present: None New/Unexplained Altered Menta: No Sepsis Screen: No Definite Risk SIRS Temperature: Pulse: 77 Respiratory Rate: 18 Laboratory Tests 08/20/19 13:34: White Blood Count 6.0 Blood Pressure 130 /59 Mean: 82 Laboratory Tests 5/26/20 13:34: Creatinine 2.41H, Platelet Count 201, Total Bilirubin 0.3 Results/Orders Lab Results Laboratory Tests Test 08/20/19 13:34 08/20/19 15:25 Range/Units White Blood Count 6.0 4.3-11.0 10^3/uL Red Blood Count 4.09 L 4.35-5.85 10^6/uL Hemoglobin 11.8 L 13.3-17.7 G/DL Hematocrit 37 L 40-54 % Mean Corpuscular Volume 90 80-99 FL Mean Corpuscular Hemoglobin 29 25-34 PG Mean Corpuscular Hemoglobin Concent 32 32-36 G/DL Red Cell Distribution Width 16.3 H 10.0-14.5 % Platelet Count 201 130-400 10^3/uL Mean Platelet Volume 9.2 7.4-10.4 FL Neutrophils (%) (Auto) 78 H 42-75 % Lymphocytes (%) (Auto) 10 L 12-44 % Monocytes (%) (Auto) 8 0-12 % Eosinophils (%) (Auto) 3 0-10 % Basophils (%) (Auto) 0 0-10 % Neutrophils # (Auto) 4.7 1.8-7.8 X 10^3 Lymphocytes # (Auto) 0.6 L 1.0-4.0 X 10^3 Monocytes # (Auto) 0.5 0.0-1.0 X 10^3 Eosinophils # (Auto) 0.2 0.0-0.3 10^3/uL Basophils # (Auto) 0.0 0.0-0.1 10^3/uL Sodium Level 140 135-145 MMOL/L Potassium Level 4.6 3.6-5.0 MMOL/L Chloride Level 107 98-107 MMOL/L Carbon Dioxide Level 21 21-32 MMOL/L Anion Gap 12 5-14 MMOL/L Blood Urea Nitrogen 27 H 7-18 MG/DL Creatinine 2.41 H 0.60-1.30 MG/DL Estimat Glomerular Filtration Rate 26 BUN/Creatinine Ratio 11 Glucose Level 154 H 70-105 MG/DL Calcium Level 8.8 8.5-10.1 MG/DL Corrected Calcium 8.9 8.5-10.1 MG/DL Magnesium Level 2.3 1.6-2.4 MG/DL Total Bilirubin 0.3 0.1-1.0 MG/DL Aspartate Amino Transf (AST/SGOT) 19 5-34 U/L Alanine Aminotransferase (ALT/SGPT) 14 0-55 U/L Alkaline Phosphatase 82 40-136 U/L Troponin I < 0.028 <0.028 NG/ML Total Protein 7.2 6.4-8.2 GM/DL Albumin 3.9 3.2-4.5 GM/DL Thyroid Stimulating Hormone (TSH) 1.92 0.35-4.94 UIU/ML Free Thyroxine 0.95 0.70-1.48 NG/DL Urine Color YELLOW Urine Clarity CLEAR Urine pH 6.0 5-9 Urine Specific [place] 1.020 1.016-1.022 Urine Protein 2+ H NEGATIVE Urine Glucose (UA) NEGATIVE NEGATIVE Urine Ketones NEGATIVE NEGATIVE Urine Nitrite NEGATIVE NEGATIVE Urine Bilirubin NEGATIVE NEGATIVE Urine Urobilinogen 1.0 < = 1.0 MG/DL Urine Leukocyte Esterase TRACE H NEGATIVE Urine RBC (Auto) 2+ H NEGATIVE Urine RBC 5-10 H /HPF Urine WBC 10-25 H /HPF Urine Squamous Epithelial Cells RARE /HPF Urine Renal Epithelial Cells 2-5 /HPF Urine Crystals NONE /LPF Urine Bacteria FEW H /HPF Urine Casts NONE /LPF Urine Mucus NEGATIVE /LPF Urine Culture Indicated YES My Orders Orders - YAW SPAULDING MD Cbc With Automated Diff (08/20/19 13:17) Comprehensive Metabolic Panel (08/20/19 13:17) Magnesium (08/20/19 13:17) Thyroid Stimulating Hormone (08/20/19 13:17) Ua Culture If Indicated (08/20/19 13:17) Ed Iv/Invasive Line Start (08/20/19 13:17) Free T4 (Free Thyroxine) (08/20/19 13:17) Ed Iv/Invasive Line Start (08/20/19 13:26) Ns Iv 500 Ml (Sodium Chloride 0.9%) (08/20/19 13:26) Ekg Tracing (08/20/19 13:27) Troponin I (08/20/19 13:27) Ns Iv 1000 Ml (Sodium Chloride 0.9%) (08/20/19 15:06) Urine Culture (08/20/19 15:25) Ceftriaxone For Iv Use (Rocephin For I (08/20/19 16:15) Medications Given in ED Current Medications Medications Dose Ordered Sig/Fahad Route Start Time Stop Time Status Last Admin Dose Admin Ceftriaxone Sodium 1000 mg/ Sterile Water 10 ml @ 200 mls/hr ONCE ONCE IV 08/20/19 16:15 08/20/19 16:17 DC 08/20/19 16:19 200 MLS/HR Sodium Chloride 500 ml @ 0 mls/hr Q0M ONCE IV 08/20/19 13:26 08/20/19 13:27 DC 08/20/19 14:11 0 MLS/HR Sodium Chloride 1,000 ml @ 0 mls/hr Q0M ONCE IV 08/20/19 15:06 08/20/19 15:07 DC 08/20/19 15:37 0 MLS/HR Vital Signs/I&O 08/20/19 08/20/19 13:38 16:25 Temp 36.5 Pulse 77 62 Resp 18 18 B/P (MAP) 130/59 (82) 124/67 Pulse Ox 94 97 Capillary Refill : Less Than 3 Seconds Blood Pressure Mean: 82 Progress Note : Progress Note Blood pressures were low normotensive. Creatinine was a bit higher than previous. He was given 1500 mL normal saline. Suggestion of urinary tract infection was identified on urinalysis. He was given a dose of Rocephin prior to discharge. It was noted that he takes multiple sedating medications which may be impacting his mental status, especially with chronic renal failure and aging. A medication review was recommended. Antibiotics were prescribed for urinary tract infection. Patient exhibited no focal neurologic deficits during his time in the ER. I discussed the situation with his . ECG Initial ECG Impression Date: August 20, 2019 Initial ECG Impression Time: 13:29 Initial ECG Rate: 69 Initial ECG Rhythm: Normal Sinus Comment Sinus rhythm with no ST elevation or depression. Incomplete right bundle branch block. No axis deviation. Departure Impression Primary Impression: Urinary tract infection Qualified Codes: N39.0 - Urinary tract infection, site not specified Additional Impressions: Confusion Chronic kidney disease Qualified Codes: N18.9 - Chronic kidney disease, unspecified Disposition: 01 HOME, SELF-CARE Condition: Improved Departure-Patient Inst. Decision time for Depature: 16:07 Referrals: BLAKE BOYCE MD (PCP/Family) Primary Care Physician Patient Instructions: Urinary Tract Infection, Adult (DC) Add. Discharge Instructions: Drink plenty of clear liquids. Complete your antibiotics as prescribed. You received a dose of antibiotics in your IV today. You may start your antibiotic tomorrow. Follow-up with your primary care provider as soon as possible. Review medications with your doctor as some of your medications may be causing sedation and confusion. Follow-up with your doctor by phone on or Monday to review urine culture results. Return to the emergency room if you have worsening symptoms that need urgent attention. All discharge instructions reviewed with patient and/or family. Voiced understanding. Scripts Cephalexin (Keflex) 500 Mg Capsule 500 MG PO BID, #14 CAP Prov: YAW SPAULDING MD 08/20/19 Copy Copies To 1: BLAKE BOYCE MD, JOSHUA T MD August 20, 2019 14:32
[2019-08-20] MEDS ORDERED: NS IV 1000 ML 1,000 ML IV ONE (15:06)
[2019-08-20 15:30] LABS: BILIRUBIN,URINE NEGATIVE (NEGATIVE); CLARITY,URINE CLEAR; COLOR,URINE YELLOW; GLUCOSE, URINE (UA) NEGATIVE (NEGATIVE); KETONES,URINE NEGATIVE (NEGATIVE); LEUKOCYTE ESTERASE ,URINE TRACE (NEGATIVE); NITRITE,URINE NEGATIVE (NEGATIVE); PROTEIN,URINE 2+ (NEGATIVE)
[2019-08-20 15:41] LABS: BACTERIA,URINE FEW /HPF; SQUAMOUS EPITHELIAL CELL,UR RARE /HPF
[2019-08-20] MEDS ORDERED: CEPH-507 PO (16:09)
[2019-08-20] MEDS ORDERED: cefTRIAXone FOR IV USE 1,000 MG in WATER (STERILE) FOR INJECTION 10 ML IV ONE (16:15)
[2019-08-20 16:25] VITALS: BP 124/67
== END 2019-08-20 16:25 | disposition home or self-care (01) ==
LOC: EDUNIT# 12:53 → ER 12:55
DX: N39.0 Urinary tract infection, site not specified (principal); N18.9 Chronic kidney disease, unspecified; E78.00 Pure hypercholesterolemia, unspecified; I25.10 Atherosclerotic heart disease of native coronary artery without angina pectoris; I25.2 Old myocardial infarction; Z85.51 Personal history of malignant neoplasm of bladder; Z85.46 Personal history of malignant neoplasm of prostate; Z95.5 Presence of coronary angioplasty implant and graft; Z90.5 Acquired absence of kidney; Z79.82 Long term (current) use of aspirin; Z87.891 Personal history of nicotine dependence
CPT/HCPCS: 36415; 80053; 81000; 83735; 84439; 84443; 84484; 85025; 87077; 87088; 87186; 93005; 96361; 96374

== ENCOUNTER → 2019-09-04 | Outpatient (CLI) | payer MEDICARE ==
--- NOTE | 2019-09-04 16:11 | Diagnostic Imaging Report ---
INDICATION: Neck pain with radiculopathy into the right arm. COMPARISON: None. FINDINGS: Three views of the right shoulder were obtained. There is no fracture, dislocation, or other acute bony abnormality identified. The soft tissues appear unremarkable. No radiopaque foreign bodies identified. The visualized portions of the right lung are clear. IMPRESSION: No acute fractures or dislocations of the right shoulder. Dictated by: Dictated on workstation # [id number]
--- NOTE | 2019-09-04 17:39 | Diagnostic Imaging Report ---
CLINICAL INDICATION: Patient with neck pain and right shoulder pain. EXAM: MRI of the cervical spine performed without IV contrast. Sequences include sagittal T1, sagittal T2, sagittal T2 fat-sat, and axial T2. COMPARISON: None. FINDINGS: There is no acute cervical spine fracture or dislocation. Limited visualization of the posterior fossa shows no significant abnormality. There is motion and CSF flow artifact which obscures portions of the cervical spine. There are minimal Modic type I degenerative signal changes involving the C5-C6 level. There are hypertrophic spurs seen throughout the cervical spine. There is no significant paraspinal soft tissue abnormality. C1-C2: There are degenerative spurs involving the atlanto-odontoid interval anteriorly. There is no significant central canal narrowing. C2-C3: There is mild diffuse disc bulge and small disc spurs in the right subarticular region. There is ligamentum flavum buckling. There is tlhg-tx-snfpkphg central canal narrowing. There is no significant neuroforamen narrowing. C3-C4: There is diffuse disc bulge with moderate loss of disc space height. There are bilateral uncinate spurs and mild bilateral facet arthropathy. There is ligamentum flavum buckling. There is moderate central canal stenosis, moderate right neuroforamen narrowing, and mild left neuroforamen narrowing. C4-C5: There is diffuse disc bulge with mpbwnaty-dd-zmncmt loss of disc space height. There is a small left subarticular spur. There is severe left neuroforamen narrowing and at least mild right neuroforamen narrowing. There is ligamentum flavum buckling. There is severe central canal stenosis. C5-C6: There is a diffuse disc bulge and moderate loss of disc space height. There are posterior disc spurs and small left uncinate spur. There is pead-cc-pwhufwze central canal narrowing. There is severe left neuroforamen narrowing and no significant right neuroforamen narrowing. C6-C7: There is bilateral facet arthropathy. There is no significant posterior disc bulge. There is mild central canal narrowing. There is no significant neuroforamen narrowing. C7-T1: There is mild ligamentum flavum buckling and mild bilateral facet arthropathy. There is no significant central canal narrowing. There is mild bilateral neuroforamen narrowing. IMPRESSION: There is multilevel cervical spine degenerative disc disease with disc bulges, disc spurs, and facet arthropathy. This is described in detail above. Dictated by: Dictated on workstation # [id number]
== END ==
LOC: RAD 15:02
PROVIDERS: ATTEND Nurse Practitioner Family
DX: M48.03 Spinal stenosis, cervicothoracic region (principal); M50.11 Cervical disc disorder with radiculopathy, high cervical region; M47.23 Other spondylosis with radiculopathy, cervicothoracic region
CPT/HCPCS: 72141; 73030

== ENCOUNTER 2019-09-21 08:47 | Emergency (ER) | payer MEDICARE ==
[~2019-09-21] VITALS: Ht 172.7 cm; Wt 90.7 kg
[2019-09-21] MEDS ORDERED: ASPIRIN 81 MG CHEW (CHILDREN'S ASA) PO ONE (09:15)
[2019-09-21 09:25] LABS: BASOPHILS % (AUTO) 1 % (0-10); EOSINOPHILS # (AUTO) 0.2 10^3/uL (0.0-0.3); EOSINOPHILS % (AUTO) 6 % (0-10); HEMATOCRIT 41 % (40-54); HEMOGLOBIN 13.3 G/DL (13.3-17.7); LYMPHOCYTES # (AUTO) 0.7 X 10^3 (1.0-4.0); LYMPHOCYTES % (AUTO) 16 % (12-44); MEAN CORPUSCULAR HEMOGLOBIN 29 PG (25-34); MEAN CORPUSCULAR HGB CONC 32 G/DL (32-36); MEAN CORPUSCULAR VOLUME 91 FL (80-99); MEAN PLATELET VOLUME 9.1 FL (7.4-10.4); MONOCYTES # (AUTO) 0.4 X 10^3 (0.0-1.0); MONOCYTES % (AUTO) 10 % (0-12); NEUTROPHILS # (AUTO) 2.9 X 10^3 (1.8-7.8); NEUTROPHILS % (AUTO) 68 % (42-75); PLATELET COUNT 185 10^3/uL (130-400); WHITE BLOOD COUNT 4.2 10^3/uL (4.3-11.0)
[2019-09-21 09:39] LABS: ALBUMIN 3.9 GM/DL (3.2-4.5); POTASSIUM 4.8 MMOL/L (3.6-5.0)
[2019-09-21 09:40] LABS: CALCIUM 8.9 MG/DL (8.5-10.1)
[2019-09-21 09:41] LABS: TOTAL PROTEIN 6.7 GM/DL (6.4-8.2)
[2019-09-21 09:42] LABS: INR 1.1 (0.8-1.4); PROTHROMBIN TIME PATIENT 14.2 SEC (12.2-14.7)
[2019-09-21 09:43] LABS: BILIRUBIN,TOTAL 0.4 MG/DL (0.1-1.0)
[2019-09-21 09:45] LABS: CREATININE SERUM 2.35 MG/DL (0.60-1.30)
[2019-09-21 09:48] LABS: MAGNESIUM 2.3 MG/DL (1.6-2.4)
--- NOTE | 2019-09-21 10:02 | Diagnostic Imaging Report ---
Indication: Coronary artery disease. Comparison: 05/10/2019 Findings: Single view of the chest demonstrates minimal cardiac enlargement. Lungs are otherwise clear. There is no pneumothorax or effusion. Osseous structures are stable. Sternal wires midline. Impression: Stable cardiac enlargement without pulmonary edema or acute infiltrate. Dictated by: Dictated on workstation # [id number]
--- NOTE | 2019-09-21 12:38 | ED Chest Pain ---
General Chief Complaint: Chest Pain Stated Complaint: CHEST PAIN - SOA Nursing Triage Note: PT AMBULATE TO [facility] WITH C/O CHEST PAIN STARTING THIS MORNING. PT STATES THAT HE HAD CHEST PAIN X2 DAYS AGO AND AGAIN THIS MORNING. PT DENIES CHEST PAIN UPON ENTERING ROOM. PT DENIES SOA. Nursing Sepsis Screen: No Definite Risk Source: patient, old records Exam Limitations: no limitations History of Present Illness Date Seen by Provider: Sep 21, 2019 Time Seen by Provider: 09:05 Initial Comments This 84-year-old gentleman with known coronary artery disease status post stenting CABG in the remote past presents to the emergency room with episodes of chest pain. He had an episode of day or 2 ago and then another episode this morning before 08:00. He is free of pain at the time of my assessment. He denies any associated symptoms such as fever, cough, vomiting, lightheadedness, etc. He feels at baseline at this time. Dr. 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 Allergies and Home Medications Allergies Coded Allergies: NKANo Known Allergies (Verified Allergy, Mild, 11/24/11) Uncoded Allergies: BEE STINGS (Allergy, Severe, SOA/HIVES, 11/01/10) Home Medications Acetaminophen 325 Mg Capsule, 650 MG PO Q6H PRN for PAIN-MILD (1-4), (Reported) Aspirin 81 Mg Tablet.dr, 81 MG PO [place], (Reported) Calcium Carbonate/Vitamin D3 1 Each Tablet, 1 TAB PO BID, (Reported) Cephalexin 500 Mg Capsule, 500 MG PO BID Prescribed by: RON MEADE on 05/24/19 1705 Cephalexin 500 Mg Capsule, 500 MG PO BID Prescribed by: YAW CELESTE on 08/20/19 1609 Ciprofloxacin HCl 500 Mg Tablet, 500 MG PO DAILY Prescribed by: JAMILA DIAZ on 05/13/19 1219 Diltiazem HCl 90 Mg Tablet, 90 MG PO HS, (Reported) Docusate Sodium 100 Mg Capsule, 100 MG PO DAILY, (Reported) Docusate Sodium 100 Mg Capsule, 200 MG PO HS, (Reported) TAKES 2 (100 MG) CAPSULES Gemfibrozil 600 Mg Tablet, 600 MG PO DAILY, (Reported) Isosorbide Mononitrate 30 Mg Tab.er.24h, 30 MG PO DAILY, (Reported) Levothyroxine Sodium 50 Mcg Tablet, 50 MCG PO DAILY, (Reported) Lisinopril 5 Mg Tablet, 2.5 MG PO HS, (Reported) Loratadine/Pseudoephedrine 1 Each Tab.er.12h, 1 EACH PO Q12H PRN for CONGESTION, (Reported) Multivitamin 1 Each Tablet, 1 TAB PO DAILY, (Reported) Omeprazole 40 Mg Capsule.dr, 40 MG PO DAILY, (Reported) Ondansetron 4 Mg Tab.rapdis, 4 MG PO Q6H PRN for NAUSEA/VOMITING, (Reported) Pramipexole Di-HCl 0.25 Mg Tablet, 0.25 MG PO DAILY, (Reported) Pramipexole Di-HCl 0.25 Mg Tablet, 0.5 MG PO HS, (Reported) TAKES 2 (0.25 MG) TABLETS Rosuvastatin Calcium 20 Mg Tablet, 20 MG PO HS, (Reported) Temazepam 30 Mg Capsule, 30 MG PO HS, (Reported) Tramadol HCl 50 Mg Tablet, 50 MG PO Q6H PRN for PAIN-MODERATE (5-7), (Reported) [Ophelia/Zinc/Turmeric] , 1 CAP PO BID, (Reported) Patient Home Medication List Home Medication List Reviewed: Yes Review of Systems Review of Systems Constitutional: no symptoms reported EENTM: No Symptoms Reported Respiratory: No Symptoms Reported Cardiovascular: See HPI Gastrointestinal: No Symptoms Reported Genitourinary: No Symptoms Reported Musculoskeletal: no symptoms reported Skin: no symptoms reported Psychiatric/Neurological: No Symptoms Reported Endocrine: No Symptoms Reported Hematologic/Lymphatic: No Symptoms Reported Past Esqxizh-Ulqqzo-Lqiyfj Hx Past Med/Social Hx: Reviewed Nursing Past Med/Soc Hx Patient Social History Alcohol Use: Denies Use Recreational Drug Use: No Smoking Status: Former Smoker Former Smoker, Quit: Jun 07, 1974 2nd Hand Smoke Exposure: No Recent Foreign Travel: No Contact w/Someone Who Travel: No Recent Infectious Disease Expo: No Recent Hopitalizations: Yes Physical Abuse: No Sexual Abuse: No Mistreated: No Fear: No Immunizations Up To Date Tetanus Booster (TDap): Unknown Date of Pneumonia Vaccine: Feb 03, 2015 Date of Influenza Vaccine: Jan 12, 2019 Seasonal Allergies Seasonal Allergies: Yes Past Medical History Surgeries: Yes (LEFT WRIST, LEFT KNEE SCOPE, TOTAL LEFT KNEE, HEMORRHOIDS,TURP ) Abdominal, Bladder Surgery, CABG, Coronary Stent, Joint Replacement, Nephrectomy Respiratory: No Currently Using CPAP: No Currently Using BIPAP: No Cardiac: Yes (STENTS X5) Coronary Artery Disease, Heart Attack, High Cholesterol Neurological: No Reproductive Disorders: No Sexually Transmitted Disease: No HIV/AIDS: No Genitourinary: Yes (urostomy) Prostate Problems Gastrointestinal: Yes (colostomy) Obstructive Bowel Musculoskeletal: Yes Arthritis Endocrine: No Hearing Impairment: Denies, Hearing Aide Right, Hearing Aide Left Cancer: Yes (NOSE) Bladder, Prostate Psychosocial: No Integumentary: No Blood Disorders: No Adverse Reaction/Blood Tranf: No Family Medical History Reviewed Nursing Family Hx Arthritis 19 FATHER 19 MOTHER Diabetes mellitus 19 FATHER Myocardial infarction 19 FATHER 19 MOTHER Respiratory disorder G8 SISTER No Family History of: AIDS Laurens's disease Alcoholism Alzheimer's disease Cancer of mouth Colon cancer Completed stroke Dementia Kidney disease Parkinson's disease Prostate cancer Psychosocial problem Seizure disorder Severe allergy Thyroid disease Tuberculosis No Pertinent Family Hx Physical Exam Vital Signs Vital Signs - First Documented 09/21/19 09/21/19 09:05 12:50 Temp 37.0 Pulse 75 Resp 16 B/P (MAP) 121/57 (78) Pulse Ox 96 O2 Delivery Room Air Capillary Refill : Less Than 3 Seconds Height, Weight, BMI Height: 5'7.00" Weight: 195lbs. 0oz. 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 Norm as Tested Skin: Normal Color, Warm/Dry Procedures/Interventions Suture Size: 4-0 Progress/Results/Core Measures Results/Orders Lab Results Laboratory Tests Test 09/21/19 09:13 09/21/19 12:05 Range/Units White Blood Count 4.2 L 4.3-11.0 10^3/uL Red Blood Count 4.54 4.35-5.85 10^6/uL Hemoglobin 13.3 13.3-17.7 G/DL Hematocrit 41 40-54 % Mean Corpuscular Volume 91 80-99 FL Mean Corpuscular Hemoglobin 29 25-34 PG Mean Corpuscular Hemoglobin Concent 32 32-36 G/DL Red Cell Distribution Width 16.0 H 10.0-14.5 % Platelet Count 185 130-400 10^3/uL Mean Platelet Volume 9.1 7.4-10.4 FL Neutrophils (%) (Auto) 68 42-75 % Lymphocytes (%) (Auto) 16 12-44 % Monocytes (%) (Auto) 10 0-12 % Eosinophils (%) (Auto) 6 0-10 % Basophils (%) (Auto) 1 0-10 % Neutrophils # (Auto) 2.9 1.8-7.8 X 10^3 Lymphocytes # (Auto) 0.7 L 1.0-4.0 X 10^3 Monocytes # (Auto) 0.4 0.0-1.0 X 10^3 Eosinophils # (Auto) 0.2 0.0-0.3 10^3/uL Basophils # (Auto) 0.0 0.0-0.1 10^3/uL Prothrombin Time 14.2 12.2-14.7 SEC INR Comment 1.1 0.8-1.4 Activated Partial Thromboplast Time 31 24-35 SEC Sodium Level 140 135-145 MMOL/L Potassium Level 4.8 3.6-5.0 MMOL/L Chloride Level 109 H 98-107 MMOL/L Carbon Dioxide Level 20 L 21-32 MMOL/L Anion Gap 11 5-14 MMOL/L Blood Urea Nitrogen 25 H 7-18 MG/DL Creatinine 2.35 H 0.60-1.30 MG/DL Estimat Glomerular Filtration Rate 26 BUN/Creatinine Ratio 11 Glucose Level 140 H 70-105 MG/DL Calcium Level 8.9 8.5-10.1 MG/DL Corrected Calcium 9.0 8.5-10.1 MG/DL Magnesium Level 2.3 1.6-2.4 MG/DL Total Bilirubin 0.4 0.1-1.0 MG/DL Aspartate Amino Transf (AST/SGOT) 17 5-34 U/L Alanine Aminotransferase (ALT/SGPT) 13 0-55 U/L Alkaline Phosphatase 82 40-136 U/L Myoglobin 140.3 H 10.0-92.0 NG/ML Troponin I < 0.028 < 0.028 <0.028 NG/ML Total Protein 6.7 6.4-8.2 GM/DL Albumin 3.9 3.2-4.5 GM/DL My Orders Orders - YAW SPAULDING MD Cbc With Automated Diff (09/21/19 09:03) Magnesium (09/21/19 09:03) Chest 1 View, Ap/Pa Only (09/21/19 09:03) Ekg Tracing (09/21/19 09:03) Comprehensive Metabolic Panel (09/21/19 09:03) Myoglobin Serum (09/21/19 09:03) Protime With Inr (09/21/19 09:03) Partial Thromboplastin Time (09/21/19 09:03) O2 (09/21/19 09:03) Monitor-Rhythm Ecg Trace Only (09/21/19 09:03) Ed Iv/Invasive Line Start (09/21/19 09:03) Troponin I (09/21/19 09:03) Aspirin Chewable Tablet (Baby Aspirin Ch (09/21/19 09:15) Troponin I (09/21/19 12:00) Medications Given in ED Current Medications Medications Dose Ordered Sig/Fahad Route Start Time Stop Time Status Last Admin Dose Admin Aspirin 243 mg ONCE ONCE PO 09/21/19 09:15 09/21/19 09:16 DC 09/21/19 09:25 243 MG Vital Signs/I&O 09/21/19 09/21/19 09/21/19 09:05 09:10 12:50 Temp 37.0 37.0 Pulse 75 66 Resp 16 18 B/P (MAP) 121/57 (78) 119/65 (78) Pulse Ox 96 O2 Delivery Room Air Room Air Room Air Blood Pressure Mean: 78 Progress Progress Note : Progress Note Patient received the balance of the aspirin 325 dose. Patient's chest pain had dissipated by the time of arrival. He had no further rebound chest pain throughout his ER stay. Labs were reviewed. Creatinine elevation was noted but when compared with prior he is at baseline. Repeat troponin at 4 hours from time of pain was also negative. Patient was discharged with return precautions and instructions for outpatient follow-up. Initial ECG Impression Date: Sep 21, 2019 Initial ECG Rhythm: Normal Sinus Comment Sinus rhythm with no ST elevation or depression. Diagnostic Imaging Diagonstic Imaging: Xray Plain Films/CT/US/NM/MRI: chest Comments NAME: [facility] REC#: [id number] PT STATUS: DEP ER : 1935 PHYSICIAN: YAW SPAULDING MD ADMIT DATE: 09/21/19/ER Signed Date of Exam:09/21/19 CHEST 1 VIEW, AP/PA ONLY Indication: Coronary artery disease. Comparison: 05/10/2019 Findings: Single view of the chest demonstrates minimal cardiac enlargement. Lungs are otherwise clear. There is no pneumothorax or effusion. Osseous structures are stable. Sternal wires midline. Impression: Stable cardiac enlargement without pulmonary edema or acute infiltrate. Dictated by: Dictated on workstation # [id number] Dict: 09/21/19 0957 Trans: 09/21/19 1306 CV [id number] Interpreted by: LILLIAN DUBON Electronically signed by: LILLIAN DUBON 09/21/19 1306 Departure Impression Primary Impression: Chest pain Qualified Codes: R07.9 - Chest pain, unspecified Disposition: 01 HOME, SELF-CARE Condition: Improved Departure-Patient Inst. Referrals: BLAKE BOYCE MD (PCP/Family) Primary Care Physician Patient Instructions: Chest Pain Add. Discharge Instructions: Continue your medications as previously prescribed. Return to care if you have recurrent chest pain or develop other symptoms such as shortness of breath. Follow-up with your primary care provider and your paint stripper as soon as possible. Please call Monday morning to make arrangements. All discharge instructions reviewed with patient and/or family. Voiced understanding. YAW SPAULDING MD Sep 21, 2019 12:38
[2019-09-21 12:50] VITALS: BP 119/65
== END 2019-09-21 12:51 | disposition home or self-care (01) ==
LOC: EDUNIT# 08:47 → ER 08:49
DX: R07.9 Chest pain, unspecified (principal); I25.10 Atherosclerotic heart disease of native coronary artery without angina pectoris; I25.2 Old myocardial infarction; E78.00 Pure hypercholesterolemia, unspecified; Z96.652 Presence of left artificial knee joint; Z85.51 Personal history of malignant neoplasm of bladder; Z85.46 Personal history of malignant neoplasm of prostate; Z95.1 Presence of aortocoronary bypass graft; Z95.5 Presence of coronary angioplasty implant and graft; Z79.82 Long term (current) use of aspirin
CPT/HCPCS: 36415; 71045; 80053; 83735; 83874; 84484; 85025; 85610; 85730; 93005; 93041

== ENCOUNTER → 2019-10-23 | Outpatient (CLI) | payer MEDICARE ==
[2019-10-23 12:37] LABS: BILIRUBIN,URINE NEGATIVE (NEGATIVE); CLARITY,URINE CLEAR; COLOR,URINE YELLOW; GLUCOSE, URINE (UA) NEGATIVE (NEGATIVE); KETONES,URINE NEGATIVE (NEGATIVE); LEUKOCYTE ESTERASE ,URINE TRACE (NEGATIVE); NITRITE,URINE NEGATIVE (NEGATIVE); PROTEIN,URINE 2+ (NEGATIVE)
== END ==
LOC: LAB 12:15
DX: Z01.89 Encounter for other specified special examinations (principal)
CPT/HCPCS: 81002

== ENCOUNTER 2019-11-01 11:48 | Outpatient (CLI) | payer MEDICARE ==
[~2019-11-01] VITALS: Ht 165.1 cm; Wt 90.7 kg
[2019-11-01] MEDS ORDERED: NS IV 1000 ML 1,000 ML ONE (11:57)
[2019-11-01 12:15] VITALS: BP 142/68
[2019-11-01] MEDS ORDERED: NS IV 1000 ML 1,000 ML IV SCH (13:00)
--- NOTE | 2019-11-01 15:20 | NUR ---
PATIENT IVF COMPLETED, IV DC'D WITH CATHETER TIP INTACT. DISCHARGED FROM [facility] AT THIS TIME, HERE TO LOG DECK TENDER PATIENT.
== END 2019-11-01 15:20 | disposition home or self-care (01) ==
LOC: SDC 11:48
DX: E86.0 Dehydration (principal)
CPT/HCPCS: 96365; 96366

== ENCOUNTER 2019-11-03 09:00 | Emergency (ER) | payer MEDICARE ==
[~2019-11-03] VITALS: Ht 173 cm; Wt 90.7 kg
--- OUTSIDE RECORDS SUMMARY | 2019-11-03 09:06 | XMS REPORT | Encounter Summary ---
Author Author [facility] Organization [facility] Address Unknown Phone Unavailable Care Team Providers Care Music Video Director Name Role Phone Cory Amaro MD Unavailable [phone] Min Lindsey MD PCP Karen Aguirre RN Unavailable Unavailable Alfredo Everett MD Unavailable Jazmine Germain RN Unavailable Unavailable Kit Tian MD Unavailable Dinorah Khan RN Unavailable Unavailable Reason for Referral * Radiology Services (Routine) Referred By Contact Referred To Contact Status Reason Specialty Diagnoses / Procedures Cory Amaro MD [address] [place] [address] New Request Radiology Diagnoses Malignant neoplasm of overlapping sites of bladder (HCC) P rocedures CT ABD/PELV WO CONTRAST Encounter Details Care Team Description Date Type Department Cory Amaro MD [address] [place] [address] Malignant neoplasm of overlapping sites of bladder (HCC) (Primary Dx) 06/07/2019 Orders Only [facility] [address] [place] [address] Social History Date Tobacco Use Types Packs/Day [...] as of this encounter Plan of Treatment Order Schedule Name Type Priority Associated Diag noses Expected: 12/08/2019 (Approximate), Expi res: 06/06/2020 CT ABD/PELV WO CONTRAST Imaging Routine Malign ant neoplasm of overlapping sites of bladder (HCC) Expected: 12/04/2019 (Approximate), Expi res: 06/06/2020 BASIC METABOLIC PANEL Lab Routine Malignan t neoplasm of overlapping sites of bladder (HCC) Expected: 12/08/2019 (Approximate), Expi res: 09/04/2020 VITAMIN B12 Lab Routine Malignant neopl asm of overlapping sites of bladder (HCC) documented as of this encounter Goals Goal Patient Associated Recent Progress Patient-Stat Aut hor Goal Type Problems ed? 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, conductor/engineer Recover from illness Hospital Yes Patrick Angel, RN Note: "To heal and recover and get back to normal" documented as of this encounter Visit Diagnoses Diagnosis Malignant neoplasm of overlapping sites of bladder (HCC) Malignant neoplasm of other specified s ites of bladder documented in this encounter
--- OUTSIDE RECORDS SUMMARY | 2019-11-03 09:06 | XMS REPORT | Clinical Summary ---
Author Author [facility] Organization [facility] Address Unknown Phone Unavailable Care Team Providers Care Cash On Delivery Clerk Name Role Phone Cory Amaro MD Unavailable [phone] Min Lindsey MD PCP Karen Aguirre RN Unavailable Unavailable Alfredo Everett MD Unavailable Jazmine Germain RN Unavailable Unavailable Kit Tian MD Unavailable Dinorah Khan RN Unavailable Unavailable Source Comments Some departments are not documenting in the electronic medical record. If you d o not see the information that you expected, contact Release of Information in [facility] Information Management department at [phone] for further assistan ce in locating additional records.[facility] Allergies Comments Active Allergy Reactions Severity Noted [...] 6 hours as needed. Active Ostomy Supplies [facility] Use 10 Units 10 Each 99 07/26 [...] or Vomiting. Place on tongue to disolve. 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 No enlargement with cough or Valsalva. 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 and ileal co nduit on 08/10 with final pathology [id number] UCC and [id number] [place] 3 + 4 prostate cancer with left [...] Stage Unknown (T3a, NX, cM0, PSA: Unknown, [place] 7) - Signed by Ariadna Weaver APRN-NP on 03/06/2018 Bladder cancer 03/10/2015 Cancer Staging: Pathologic stage from : Stage 0is (Tis, N0, cM0) - Signed by Ariadna Weaver APRN-NP on 02/24 Overview: 02/10/2014: Incedental finding of CIS o f the bladder on TURP specimen performed for obstructive LUTS 04/01/14: repeat TURP - no residual dis ease - No BCG, no recurrent lesions on 3 and 6 month follow up cystoscopies 02/16/15: Cystoscopy: Findings: Bladder wall: inflamed with 3 bladder lesions. 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) - No BCG or mitomycin (patient elected [...] months with CXR, CT abdomen/pel vis, labs Immunizations Name Administration Dates Next Due Flu [...] Comments Vital Sign 194/54 04/30/2019 7:43 AM PRINCIPAL ASSOCIATE Blood Pressure 77 04/30/2019 7:43 AM PRINCIPAL ASSOCIATE Pulse 36.4 C (97.5 F) 04/30/2019 7:43 AM PRINCIPAL ASSOCIATE Temperature - - Respiratory Rate 96% 04/30/2019 7:43 AM PRINCIPAL ASSOCIATE Oxygen Saturation - - Inhaled Oxygen Concentration 87.9 kg (193 lb 12.8 oz) 04/24/2019 10:41 AM PRINCIPAL ASSOCIATE Weight 165.1 cm (5' 5") 04/24/2019 10:41 AM PRINCIPAL ASSOCIATE Height 32.25 04/24/2019 10:41 AM PRINCIPAL ASSOCIATE Body Mass Index Plan of Treatment Health Maintenance Due Date Last Done Comments MEDICARE ANNUAL WELLNESS 1935 VISIT DTAP/TDAP VACCINES (1 - 1952 Tdap) PHYSICAL (COMPREHENSIVE) 1953 EXAM SHINGLES RECOMBINANT 1984 VACCINE (1 of 2) INFLUENZA VACCINE 12/26/2019 01/08/2015, 01/06/2005, 01/01/2004, Additional history exists PNEUMONIA (PPSV23) Completed 02/08/2015 VACCINE Goals Goal Patient Associated Recent Progress Patient-Stat Aut hor Goal Type Problems ed? 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 software programmer Recover from illness Hospital Yes Patrick Angel, MARIAN Note: "To heal and recover and get back to normal" Implants Device Identifier Shelf Expiration Date Model / Serial / L ot Implanted Type Area Manufactur er Left Knee Knee 06/14/2019 [id number] / NA / NA Set Stent 75cm 7fr Account Services Coordinator .038in COOK GRP 5mm Pigtail Curve Ureter COOK Implanted: Qty: 1 on 08/10/2016 by Cory Amaro MD at [facility] 02/01/2022 [id number] / [id number] / [id number] Set Stent 75cm 7fr .038in 5mm COOK Pigtail Curve Ureteral - [id number] MEDICAL Implanted: Qty: 1 on 04/24/2019 by INC Cory Amaro MD at [facility] 08/24/2021 [id number] / [id number] / [id number] Barrier Adhesion 3x5in Procedure SANOFI-AVE Pack Bioresorbable Membrane - NTIS [id number] Implanted: Qty: 1 on 04/24/2019 by Cory Amaro MD at [facility] Results Not on filefrom Last 3 Months Insurance Type Payer Benefit Subscriber ID Effective Phone Address Plan / Dates Group Medicare MEDICARE MEDICARE xxxxxxxxxxx 1999-P PART A AND resent B PPO [facility] xxxxxxxxxxx 2002-P resent [id number] Advance Directives Patient Distribution Manager Explanation Type Date Recorded [facility] Advance 03/06/2015 9:31 AM Directive/DPOA Perceptive Content [...]
--- OUTSIDE RECORDS SUMMARY | 2019-11-03 09:06 | XMS REPORT | Encounter Summary ---
Author Author [facility] Organization [facility] Address Unknown Phone Unavailable Care Team Providers Care Propeller Engineer Name Role Phone Cory Amaro MD Unavailable [phone] Min Lindsey MD PCP Karen Aguirre RN Unavailable Unavailable Alfredo Everett MD Unavailable Jazmine Germain RN Unavailable Unavailable Kit Tian MD Unavailable Dinorah Khan RN Unavailable Unavailable Reason for Visit * Reason Comments Follow-up Phone Call Encounter Details Care Team Description Date Type Department Cory Amaro MD [address] [place] [address] Follow-up Phone Call 06/07/2019 Telephone [facility] [address] [facility] [address] [address] [place] [address] Social History Date Tobacco Use [...] encounter Miscellaneous Notes * Telephone Encounter - Cory Amaro MD - 06/07/2019 8:15 AM CDT Called and spoke with Patient is doing well He has had a "couple" of UTI's treated by local physician Elma removed and labs checked by local physician She states everything is good They will contact us with any problems documented in this encounter Plan of Treatment [...]
--- OUTSIDE RECORDS SUMMARY | 2019-11-03 09:06 | XMS REPORT | Encounter Summary ---
Author Author [facility] Organization [facility] Address Unknown Phone Unavailable Care Team Providers Care Child Psychiatrist Name Role Phone Cory Amaro MD Unavailable [phone] Min Lindsey MD PCP Karen Aguirre RN Unavailable Unavailable Alfredo Everett MD Unavailable Jazmine Germain RN Unavailable Unavailable Kit Tian MD Unavailable Dinorah Khan RN Unavailable Unavailable Reason for Visit * Reason Comments Medical Question Encounter Details Care Team Description Date Type Department WhileAugustus cordero MD [address] [place] [address] Medical Question 05/11/2019 Telephone [facility] [address] [place] [address] Social History Date Tobacco Use [...] Augustus Bhatti MD - 05/11/2019 9:35 PM SENIOR BENEFITS SPECIALIST Urology Phone Call Mr. Kennedy is an 83yo M with history of bladder cancer s/p RC/IC, recently s/p L nephroureterectomy with reimplantation of the right ureter on 04/24/[address] Amaro. The patient's called in [facility] with questions regarding fo llow up for [...] and staple removal locally. She is a [employer] ICU nurse and feels very comfortable pulling the stent out for him and with [facility] doctor removal arsalan. > Cancel 05/13/19 appointment [...] call. Augustus Bhatti MD PGY3 Urology Resident OR BENEFITS SPECIALIST documented in this encounter Plan of Treatment Not on filedocumented as of this encounter Goals Goal Patient Associated Recent Progress Patient-Stat Aut hor Goal Type Problems ed? 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, utility manager Recover from illness Hospital Yes Patrick Angel, RN Note: "To heal and recover and get back to normal" documented as of this encounter Visit Diagnoses Not on filedocumented in this encounter
--- OUTSIDE RECORDS SUMMARY | 2019-11-03 09:06 | XMS REPORT | Encounter Summary ---
Author Author [facility] Organization [facility] Address Unknown Phone Unavailable Care Team Providers Care Senior Net Developer Architect Name Role Phone Cory Amaro MD Unavailable [phone] Min Lindsey MD PCP Karen Aguirre RN Unavailable Unavailable Alfredo Everett MD Unavailable Jazmine Germain RN Unavailable Unavailable Kit Tian MD Unavailable Dinorah Khan RN Unavailable Unavailable Reason for Visit * Reason Comments Appointment Question Encounter Details Care Team Description Date Type Department Cory Amaro MD [address] [facility] [place] [address] Appointment Question 06/06/2019 Telephone [facility] [address] [facility] [address] [place] [address] Social History Date Tobacco Use [...] encounter Miscellaneous Notes * Telephone Encounter - Brooke Stone, RN - 06/06/2019 9:25 AM CDT Patient's calling with concerns regarding the patient's upcoming appointmen t with Dr. Amrao tomorrow at 2 pm. Instead of putting themselves at risk due to their vulnerability to the pandemic they were wanting to know if they co uld talk to Dr. Amaro over the phone. Looks like the patient is in need of labs and it is his 1 month post-op visit. Let them know I would send the mess age along to Dr. Amaro and his nurse to get their recommendation. Winston benavides is doing well after the procedure and kelsi were removed by his local physic aneta. 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 Let her know I woul d have to leave it up to Dr. Amaro's recommendation and we would get mariluz k to them as soon as we had advise from him. documented in this encounter Plan of Treatment Not on filedocumented as of this encounter Goals Goal Patient Associated Recent Progress Patient-Stat Aut hor Goal Type Problems ed? 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, associate professor of biostatistics Recover from illness Hospital Yes Patrick Angel, MARIAN Note: "To heal and recover and get back to normal" documented as of this encounter Visit Diagnoses Not on filedocumented in this encounter
--- OUTSIDE RECORDS SUMMARY | 2019-11-03 09:07 | XMS REPORT | Continuity of Care Document ---
[facility] Address Unknown Phone Unavailable Care Team Providers Care Residential Property Manager Name Role Phone [facility] Unavailable Unavailable Problems Combined list of all problems from all Department of Defense and [facility] facilities. It does not include entries that were removed or entered in error. Problem Status Onset Date Problem Type Date of Resolution Comments Source Bilateral tinnitus (SNOMED CT [id number]) Active Condition [facility] Bladder cancer Active Condition [facility] Chronic kidney disease stage 3 Active Condition [facility] History of percutaneous transluminal coronary angiopla sty Active Condition [facility] HTN - Hypertension (SCT [id number]) Active Condition [facility] Hyperlipidemia Active Condition [facility] Hypothyroidism Active Condition [facility] Impotence of organic origin Active Condition [facility] Sensorineural hearing loss, bilateral Active Condition [facility] Arthritis * (ICD-9-CM 716.90) Inactive Condition 12/15/2017 Sep 18, 2007 Entered By: KAIN WHITLOCK Comment: knees bilat Sep 15, 2008 Entered By: KAIN WHITLOCK Comment: left knee "scrapped" in 2007 [facility] CAD * (ICD-9-CM 414.9) Inactive Condition 12/15/2017 [facility] HYPERLIPIDEMIA NEC/NOS 272.4 Inactive Condition 12/15/2017 [facility] HYPERTENSION NOS 401.9 Inactive Condition 12/15/2017 [facility] 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 [facility] Hypothyroidism Inactive Condition 12/15/2017 [facility] IMPAIRED FASTING GLUCOSE. Inactive Condition 12/15/2017 [facility] Knee Joint replacement Status (Prostheti c or Artificial Device) Inactive Condition 12/15/2017 Jan 17, 2012 Entered By: KAIN WHITLOCK Comment: left. juancarlos ceron mo.- oct [facility] Personal History of Tobacco Use In active Condition 8 July 27, 2006 Entered By: KAIN WHITLOCK Comment: quit smoking in 1999 after cabg [facility] Postsurgical Aortocoronary Bypass Status Inactive Condition July 27, 2006 Entered By: KAIN WHITLOCK Comment: [place] 1999, [facility] Sep 15, 2008 Entered By: KAIN WHITLOCK Comment: [facility] september 12, [place] [facility] Postsurgical Percutaneous Transluminal C oronary Angioplasty Status Inactive Condition 12/15/2017 Dec 01, 2010 Entered By: KAIN WHITLOCK Comment: /2011. dr woodward. promus drug eluting stent [facility] Sensorineural Hearing Loss * (ICD-9-CM 389.10) Inactive Condition 8 [facility] Tinnitus * (ICD-9-CM 388.30) Inactive Condition 12/15/2017 [facility] ICD-10-CM H93.13 Tinnitus, bilateral wit h Provider Comments: Bilateral tinnitus ([facility] [id number]) active Diagnosis [facility] Medications Combined list of all outpatient medications recorded within the last 15 months b y all Department of Defense and [facility] facilities, and also all patien t-reported medications. Medication Details Route Status Patient Instructions Prescription Expires Prescript ion Number Last Dispense Date Ordering Pr ovider Order Date Source ASPIRIN 81MG TAB,EC TAKE ONE T ABLET BY MOUTH ONCE A DAY ACTIVE ROSALBA BAUGH 12/03/2018 ANGELA BANERJ[facility] BUDESONIDE 80MCG/FORMOTEROL FUM 4.5MCG/S PRAY INHL,ORAL,10.2GM INHALE 2 PUFFS BY ORAL INHALATION THREE TIMES A DAY NEEDED ROSALBA FAM 12/03/2018 ANGELA BANERJEE CALCIUM CITRATE 315MG/VITAMIN D 200UNT TAB TAKE ONE TABLET BY MOUTH TWO TIMES A DAY ACTIVE DARRYN BAUGH ET 12/03/2018 [facility] CLOPIDOGREL BISULFATE 75MG TAB TAKE ONE TABLET BY MOUTH ONCE A DAY ACTIVE AMAURI,ROSALBA 12/03/2018 [facility] DILTIAZEM (24HR DOSING) CAP,SA TAKE 90 BY MOUTH EVERY MORNING ACTIVE AMAURI,12/03/2018 [facility] FISH OIL 1000MG (500MG DHA/EPA) CAP,ORAL TAKE 1 CAPSULE BY MOUTH TWO TIMES A DAY ACTIV E FRANK BAUGH12/03/2018 [facility] FUROSEMIDE 40MG TAB TAKE ONE T ABLET BY MOUTH EVERY MORNING NEEDED ACTIVE AMAURI,12/03/2018 [facility] GEMFIBROZIL 600MG TAB TAKE ONE TABLET BY MOUTH TWO TIMES A DAY BEFORE MEALS ACTIVE AMAURI,12/03/2018 [facility] LEVOTHYROXINE NA 0.05MG TAB (SYNTHROID) TAKE ONE TABLET BY MOUTH EVERY MORNING BEFORE MEAL ACTIVE DARRYN BAUGH ET 12/03/2018 [facility] LISINOPRIL 5MG TAB TAKE ONE-REESE LF TABLET BY MOUTH EVERY MORNING ACTIVE AMAURI,12/03/2018 [facility] LORATADINE 10MG TAB TAKE ONE T ABLET BY MOUTH QDAY PRN ACTIVE AMAURI,12/03/2018 [facility] MAGNESIUM OXIDE 400MG TAB TAKE ONE TABLET BY MOUTH ONCE A DAY ACTIVE AMAURI,12/03/2018 [facility] MELATONIN 1MG CAP/TAB TAKE 10 CAP/TABS BY MOUTH AT BEDTIME ACTIVE AMAURI,12/03/2018 [facility] MELOXICAM 15MG TAB TAKE ONE TA BLET BY MOUTH ONCE A DAY NEEDED ACTIVE AMAURI,ROSALBA 12/03/2018 [facility] POTASSIUM CHLORIDE 20MEQ TAB,SA (DISPERSIBLE) TAKE ONE- HALF TABLET BY MOUTH EVERY MORNING NEEDED ACTIVE DARRYN BAUGH ET 12/03/2018 [facility] ROSUVASTATIN CA 40MG TAB TAKE ONE-HALF TABLET BY MOUTH AT BEDTIME ACTIVE AMAURI,12/03/2018 [facility] SENNOSIDES 8.6MG TAB TAKE ONE TABLET BY MOUTH THREE TIMES A DAY ACTIVE AMAURI,ROSALBA 12/03/2018 [facility] TEMAZEPAM 15MG CAP TAKE 1 CAPS ULE BY MOUTH AT BEDTIME ACTIVE FRANK BAUGH12/03/2018 [facility] TRAMADOL HCL 50MG TAB TAKE ONE TABLET BY MOUTH HS PRN ACTIVE AMAURIROSALBA 12/03/2018 [facility] Allergies, Adverse Reactions, Alerts No Known Medication Allergies Immunizations Combined list of: 1) all immunizations on record at all [facility] facilit ies, and 2) all available immunizations on record at Department of Defense (Do D) facilities. Some immunizations on record at [facility] may not be included. 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 Source INFLUENZA, UNSPECIFIED FORMULATION 01/26/2016 88 completed [facility], [facility] 15 PNEUMOCOCCAL CONJUGATE PCV 13 01/22/2015 133 completed [facility] INFLUENZA, UNSPECIFIED FORMULATION 01/08/2015 88 completed [facility], [facility] 15 INFLUENZA, UNSPECIFIED FORMULATION 01/02/2014 88 completed [facility], [facility] 15 INFLUENZA, UNSPECIFIED FORMULATION 12/14/2012 88 completed [facility], [facility] 15 INFLUENZA, UNSPECIFIED FORMULATION 12/01/2010 88 completed [facility] INFLUENZA, UNSPECIFIED FORMULATION 11/25/2008 88 completed [facility], [facility] 15 INFLUENZA, UNSPECIFIED FORMULATION 01/09/2008 88 completed [facility], [facility] 15 TD(ADULT) UNSPECIFIED FORMULATION 10/27/2007 139 completed [facility], [facility] 15 INFLUENZA, UNSPECIFIED FORMULATION 01/25/2007 88 completed [facility], [facility] 15 PNEUMOCOCCAL, UNSPECIFIED FORMULATION 01/25/2007 109 completed [facility], [facility] 15 INFLUENZA, UNSPECIFIED FORMULATION 01/25/2006 88 completed [facility], [facility] 15 INFLUENZA, UNSPECIFIED FORMULATION 01/08/2005 88 completed [facility], [facility] 15 INFLUENZA, UNSPECIFIED FORMULATION 12/25/2002 88 completed [facility], [facility] 15 PNEUMOCOCCAL, UNSPECIFIED FORMULATION 07/25/2002 [address] [facility] INFLUENZA (HISTORICAL) 12/25/2001 88 completed [facility], [facility] 15 INFLUENZA, WHOLE 12/25/2001 16 completed [facility] 15 INFLUENZA (HISTORICAL) 04/04/2001 88 completed [facility] INFLUENZA, WHOLE 04/04/2001 16 completed [facility] INFLUENZA (HISTORICAL) 01/25/2001 88 completed [facility], [facility] 15 INFLUENZA, WHOLE 01/25/2001 16 completed [facility] PNEUMOCOCCAL, UNSPECIFIED FORMULATION 08/09/2000 109 completed [facility] INFLUENZA (HISTORICAL) 01/24/2000 88 completed [facility] Results Combined list of recent chemistry, hematology and other laboratory results going back no more than 15 months from the Department of Defense and Veterans Affairs facilities. Order Name Results Value Reference Range Date Interpretation Specimen Comments Source CBC & DIFF LEUKOCYTES [#/VOLUM E] IN BLOOD BY AUTOMATED COUNT 5.6 K/cmm 3.60 - 11.20 12/03/2018 Specimen Type: BLOOD Comment: Manual diff performed. 12/03/18 [facility] CBC & DIFF ERYTHROCYTES [#/VOL UME] IN BLOOD BY AUTOMATED COUNT 4.62 M/ul 4.1 - 5.7 12/03/2018 Specimen Type: BLOOD Comment: Manual diff performed. 12/03/18 [facility] CBC & DIFF HEMOGLOBIN [MASS/VOLUME] IN BLOOD 14.6 g/dl 13.1 - 16.8 12/03/2018 Specimen T ype: BLOOD Comment: Manual diff performed. 12/03/18 [facility] CBC & DIFF HEMATOCRIT [VOLUME FRACTION] OF BLOOD BY AUTOMATED COUNT 42.8 % 38.2 - 48.4 12/03/2018 Specimen Type: BLOOD Comment: Manual diff performed. 12/03/18 [facility] CBC & DIFF MCV [ENTITIC VOLUME] BY A UTOMATED COUNT 92.6 fl 80.1 - 98.5 12/03/2018 Specimen Type: BLOOD Comment: Manual diff performed. 12/03/18 [facility] CBC & DIFF MCH [ENTITIC MASS] BY AUT OMATED COUNT 31.6 pg 27.0 - 34.0 12/03/2018 Specimen T ype: BLOOD Comment: Manual diff performed. 12/03/18 [facility] CBC & DIFF MCHC [MASS/VOLUME] BY AUT OMATED COUNT 34.1 g/dl 33.0 - 36.0 12/03/2018 Specimen Type: BLOOD Comment: Manual diff performed. 12/03/18 [facility] CBC & DIFF PLATELETS [#/VOLUME ] IN BLOOD BY AUTOMATED COUNT 175 K/cmm 150 - 400 12/03/2018 Specimen Type: BLOOD Comment: Manual diff performed. 12/03/18 [facility] CBC & DIFF PLATELET MEAN VOLUM E [ENTITIC VOLUME] IN BLOOD BY AUTOMATED COUNT 9.7 fl 7.5 - 11.2 12/03/2018 Specimen Type: BLOOD Comment: Manual diff performed. 12/03/18 [facility] CBC & DIFF SEGMENTED NEUTROPHI LS/100 LEUKOCYTES IN BLOOD BY MANUAL COUNT 62 % 44 - 80 12/03/2018 Specimen Type: BLOOD Comment: Manual diff performed. 12/03/18 [facility] CBC & DIFF LYMPHOCYTES/100 NIESHA KOCYTES IN BLOOD BY MANUAL COUNT 14 % 20 - 40 12/03/2018 L Specimen Type: BLOOD Comment: Manual diff performed. 12/03/18 [facility] CBC & DIFF MONOCYTES/100 LEUKO CYTES IN BLOOD BY MANUAL COUNT 11 % 4 - 8 0 12/03/2018 H Specimen Type: BLOOD Comment: Manual diff performed. 12/03/18 [facility] CBC & DIFF EOSINOPHILS/100 NIESHA KOCYTES IN BLOOD BY AUTOMATED COUNT 12 % 0 - 8 12/03/2018 H Specimen Type: BLOOD Comment: Manual diff performed. 12/03/18 [facility] CBC & DIFF BASOPHILS/100 LEUKO CYTES IN BLOOD BY MANUAL COUNT 1 % 0 - 3 Specimen Type: BLOOD Comment: Manual diff performed. 12/03/18 [facility] CBC & DIFF ERYTHROCYTE MORPHOL OGY FINDING [IDENTIFIER] IN BLOOD YES 2018 Specimen Type: BLOOD Comment: Manual diff performed. 12/03/18 [facility] & DIFF ERYTHROCYTE DISTRIB UTION WIDTH [RATIO] BY AUTOMATED COUNT 13.6 % 11.8 - 15.1 12/03/2018 Specimen Type: BLOOD Comment: Manual diff performed. 12/03/18 [facility] COMPREHENSIVE METABOLIC PANEL CREATININE [MASS/VOLUME] IN SERUM OR PLASMA 1.37 mg/dL 0.7 - 1.3 12/03/2018 H Specimen Type: PLASMA No comment entered. [facility] COMPREHENSIVE METABOLIC PANEL UREA NITROGEN [MASS/VOLUME] IN SERUM OR PLASMA 23 mg/dL 9 - 25 12/03/2018 Specimen Type: PLASMA No comment entered. [facility] COMPREHENSIVE METABOLIC PANEL GLUCOSE [MASS/VOLUME] IN SERUM OR PLASMA 112 mg/dL 72 - 99 12/03/2018 H Specimen Type: PLASMA No comment entered. [facility] COMPREHENSIVE METABOLIC PANEL SODIUM [MOLES/VOLUME] IN SERUM OR PLASMA 139 mEq/L 136 - 145 12/03/2018 Specimen Type: PLASMA No comment entered. [facility] COMPREHENSIVE METABOLIC PANEL POTASSIUM [MOLES/VOLUME] IN SERUM OR PLASMA 4.3 mEq/L 3.5 - 5.0 12/03/2018 Specimen Type: PLASMA No comment entered. [facility] COMPREHENSIVE METABOLIC PANEL CALCIUM [MASS/VOLUME] IN SERUM OR PLASMA 9.9 mg/dL 8.4 - 10.4 12/03/2018 Specimen Type: PLASMA No comment entered. [facility] COMPREHENSIVE METABOLIC PANEL PROTEIN [MASS/VOLUME] IN SERUM OR PLASMA 7.6 g/dL 6.0 - 8.6 12/03/2018 Specimen Type: PLASMA No comment entered. [facility] COMPREHENSIVE METABOLIC PANEL ALBUMIN [MASS/VOLUME] IN SERUM OR PLASMA 4.4 g/dl 3.4 - 5.0 12/03/2018 Specimen Type: PLASMA No comment entered. [facility] COMPREHENSIVE METABOLIC PANEL BILIRUBIN.TOTAL [MASS/VOLUME] IN SERUM OR PLASMA 0.5 mg/dL 0.2 - 1.2 12/03/2018 Specimen Type: PLASMA No comment entered. [facility] COMPREHENSIVE METABOLIC PANEL ASPARTATE AMINOTRANSFERASE [ENZYMATIC ACTIVITY/VOLUME] IN SERUM OR PLASMA 20 U/L 5 - 34 12/03/2018 Specimen Type: PLASMA No comment entered. [facility] COMPREHENSIVE METABOLIC PANEL ALANINE AMINOTRANSFERASE [ENZYMATIC ACTIVITY/VOLUME] IN SERUM OR PLASMA 14 U/L 8 - 40 12/03/2018 Specimen Type: PLASMA No comment entered. [facility] COMPREHENSIVE METABOLIC PANEL ANION GAP IN SERUM OR PLASMA 8.5 2018 Specimen T ype: PLASMA No comment entered. [facility] COMPREHENSIVE METABOLIC PANEL CHLORIDE [MOLES/VOLUME] IN SERUM OR PLASMA 105 mEq/L 98 - 107 12/03/2018 Specimen Type: PLASMA No comment entered. [facility] COMPREHENSIVE METABOLIC PANEL CARBON DIOXIDE, TOTAL [MOLES/VOLUME] IN SERUM OR PLASMA 25.5 mEq/L 22 - 31 12/03/2018 Specimen Type: PLASMA No comment entered. [facility] COMPREHENSIVE METABOLIC PANEL ALKALINE PHOSPHATASE [ENZYMATIC ACTIVITY/VOLUME] IN SERUM OR PLASMA 52 U/L 40 - 150 12/03/2018 Specimen Type: PLASMA No comment entered. [facility] COMPREHENSIVE METABOLIC PANEL GLOMERULAR FILTRATION RATE/1.73 SQ M.PREDICTED [VOLUME RATE/AREA] IN SERUM OR PLASMA BY CREATININE- BASED FORMULA (MDRD) 49.5 12/03/2018 Specimen Type: PLASMA No comment entered. [facility] LIPID PROFILE(HDL,TRIG,CHOL,LDL) CHOLESTEROL [MASS/VOLUME] IN SERUM OR PLASMA 144 mg/dL 0 - 200 12/03/2018 Specimen Type: PLASMA No comment entered. [facility] LIPID PROFILE(HDL,TRIG,CHOL,LDL) TRIGLYCERIDE [MASS/VOLUME] IN SERUM OR PLASMA 147 mg/dL 0 - 150 12/03/2018 Specimen Type: PLASMA No comment entered. [facility] LIPID PROFILE(HDL,TRIG,CHOL,LDL) CHOLESTEROL IN HDL [MASS/VOLUME] IN SERUM OR PLASMA 37 mg/dL 12/03/2018 L Specimen Type: PLASMA No comment entered. [facility] LIPID PROFILE(HDL,TRIG,CHOL,LDL) CHOLESTEROL IN LDL [MASS/VOLUME] IN SERUM OR PLASMA BY CALCULATION 78 mg/dL 0 - 99.9 12/03/2018 Specimen Type: PLASMA No comment entered. [facility] PROSTATIC SPECIFIC ANTIGEN(TOTAL) PROSTATE SPECIFIC AG [MASS/VOLUME] IN SERUM OR PLASMA 0.0 ng/mL 0 - 4 12/03/2018 Specimen Type: SERUM No comment entered. [facility] TSH THYROTROPIN [UNITS/VOLUME] IN SE RUM OR PLASMA 2.80 uIU/mL 0.47 - 5.00 12/03/2018 Specimen Type: SERUM No comment entered. [facility] HEMOGLOBIN A1C HEMOGLOBIN A1C/ HEMOGLOBIN.TOTAL IN BLOOD BY HPLC 5.9 % 4.0 - 6.0 12/15/2017 Specimen Type: BLOOD No comment entered. [facility] CBC & DIFF LEUKOCYTES [#/VOLUM E] IN BLOOD BY AUTOMATED COUNT 4.7 K/cmm 3.60 - 11.20 12/15/2017 Specimen Type: BLOOD No comment entered. [facility] CBC & DIFF ERYTHROCYTES [#/VOL UME] IN BLOOD BY AUTOMATED COUNT 4.65 M/ul 4.1 - 5.7 12/15/2017 Specimen Type: BLOOD No comment entered. [facility] CBC & DIFF HEMOGLOBIN [MASS/VOLUME] IN BLOOD 14.5 g/dl 13.1 - 16.8 12/15/2017 Specimen T ype: BLOOD No comment entered. [facility] CBC & DIFF HEMATOCRIT [VOLUME FRACTION] OF BLOOD BY AUTOMATED COUNT 43.2 % 38.2 - 48.4 12/15/2017 Specimen Type: BLOOD No comment entered. [facility] CBC & DIFF MCV [ENTITIC VOLUME] BY A UTOMATED COUNT 92.9 fl 80.1 - 98.5 12/15/2017 Specimen Type: BLOOD No comment entered. [facility] CBC & DIFF MCH [ENTITIC MASS] BY AUT OMATED COUNT 31.2 pg 27.0 - 34.0 12/15/2017 Specimen T ype: BLOOD No comment entered. [facility] CBC & DIFF MCHC [MASS/VOLUME] BY AUT OMATED COUNT 33.6 g/dl 33.0 - 36.0 12/15/2017 Specimen Type: BLOOD No comment entered. [facility] CBC & DIFF PLATELETS [#/VOLUME ] IN BLOOD BY AUTOMATED COUNT 183 K/cmm 150 - 400 12/15/2017 Specimen Type: BLOOD No comment entered. [facility] CBC & DIFF PLATELET MEAN VOLUM E [ENTITIC VOLUME] IN BLOOD BY AUTOMATED COUNT 9.7 fl 7.5 - 11.2 12/15/2017 Specimen Type: BLOOD No comment entered. [facility] CBC & DIFF ERYTHROCYTE DISTRIB UTION WIDTH [RATIO] BY AUTOMATED COUNT 15.6 % 11.8 - 15.1 12/15/2017 H Specimen Type: BLOOD No comment entered. [facility] CBC & DIFF LYMPHOCYTES/100 NIESHA KOCYTES IN BLOOD BY AUTOMATED COUNT 15.3 % 12/15/2017 Specimen Type: BLOOD No comment entered. [facility] CBC & DIFF NEUTROPHILS/100 NIESAH KOCYTES IN BLOOD BY AUTOMATED COUNT 70.1 % 12/15/2017 Specimen Type: BLOOD No comment entered. [facility] CBC & DIFF MONOCYTES/100 LEUKO CYTES IN BLOOD BY AUTOMATED COUNT 9.6 % 12/15/2017 Specimen Type: BLOOD No comment entered. [facility] CBC & DIFF MONOCYTES [#/VOLUME ] IN BLOOD BY AUTOMATED COUNT 0.5 K/cmm 0.19 - 1.50 12/15/2017 Specimen Type: BLOOD No comment entered. [facility] CBC & DIFF NEUTROPHILS [#/VOLU ME] IN BLOOD BY AUTOMATED COUNT 3.3 K/cmm 2.10 - 8.00 12/15/2017 Specimen Type: BLOOD No comment entered. [facility] CBC & DIFF EOSINOPHILS [#/VOLU ME] IN BLOOD BY AUTOMATED COUNT 0.2 K/cmm 0.00 - 0.60 12/15/2017 Specimen Type: BLOOD No comment entered. [facility] CBC & DIFF BASOPHILS [#/VOLUME ] IN BLOOD BY AUTOMATED COUNT 0.0 K/cmm 0.00 - 0.20 12/15/2017 Specimen Type: BLOOD No comment entered. [facility] CBC & DIFF EOSINOPHILS/100 NIESHA KOCYTES IN BLOOD BY AUTOMATED COUNT 3.2 % 12/15/2017 Specimen Type: BLOOD No comment entered. [facility] CBC & DIFF BASOPHILS/100 LEUKO CYTES IN BLOOD BY AUTOMATED COUNT 0.9 % 12/15/2017 Specimen Type: BLOOD No comment entered. [facility] CBC & DIFF LYMPHOCYTES [#/VOLU ME] IN BLOOD BY AUTOMATED COUNT 0.7 K/cmm 0.77 - 4.50 12/15/2017 L Specimen Type: BLOOD No comment entered. [facility] CBC & DIFF IMMATURE GRANULOCYT ES [#/VOLUME] IN BLOOD BY AUTOMATED COUNT 0.04 K/cmm 0.00 - 0.05 12/15/2017 Specimen Type: BLOOD No comment entered. [facility] CBC & DIFF IMMATURE GRANULOCYT ES/100 LEUKOCYTES IN BLOOD BY AUTOMATED COUNT 0.9 % 12/15/2017 Specimen Type: BLOOD No comment entered. [facility] COMPREHENSIVE METABOLIC PANEL CREATININE [MASS/VOLUME] IN SERUM OR PLASMA 1.13 mg/dL 0.7 - 1.3 12/15/2017 Specimen Type: PLASMA Comment: For eGFR: eGFR results >60 are imprecise. Many variables affect the calculated result. Interpretation of eGFR results >60 must be monitored over time. [facility] COMPREHENSIVE METABOLIC PANEL UREA NITROGEN [MASS/VOLUME] IN SERUM OR PLASMA 14 mg/dL 9 - 25 12/15/2017 Specimen Type: PLASMA Comment: For eGFR: eGFR results >60 are imprecise. Many variables affect the calculated result. Interpretation of eGFR results >60 must be monitored over time. [facility] COMPREHENSIVE METABOLIC PANEL GLUCOSE [MASS/VOLUME] IN SERUM OR PLASMA 89 mg/dL 72 - 99 12/15/2017 Specimen Type: PLASMA Comment: For eGFR: eGFR results >60 are imprecise. Many variables affect the calculated result. Interpretation of eGFR results >60 must be monitored over time. [facility] COMPREHENSIVE METABOLIC PANEL SODIUM [MOLES/VOLUME] IN SERUM OR PLASMA 140 mEq/L 136 - 145 12/15/2017 Specimen Type: PLASMA Comment: For eGFR: eGFR results >60 are imprecise. Many variables affect the calculated result. Interpretation of eGFR results >60 must be monitored over time. [facility] COMPREHENSIVE METABOLIC PANEL POTASSIUM [MOLES/VOLUME] IN SERUM OR PLASMA 4.1 mEq/L 3.5 - 5.0 12/15/2017 Specimen Type: PLASMA Comment: For eGFR: eGFR results >60 are imprecise. Many variables affect the calculated result. Interpretation of eGFR results >60 must be monitored over time. [facility] COMPREHENSIVE METABOLIC PANEL CALCIUM [MASS/VOLUME] IN SERUM OR PLASMA 9.7 mg/dL 8.4 - 10.4 12/15/2017 Specimen Type: PLASMA Comment: For eGFR: eGFR results >60 are imprecise. Many variables affect the calculated result. Interpretation of eGFR results >60 must be monitored over time. [facility] COMPREHENSIVE METABOLIC PANEL PROTEIN [MASS/VOLUME] IN SERUM OR PLASMA 7.2 g/dL 6.0 - 8.6 12/15/2017 Specimen Type: PLASMA Comment: For eGFR: eGFR results >60 are imprecise. Many variables affect the calculated result. Interpretation of eGFR results >60 must be monitored over time. [facility] COMPREHENSIVE METABOLIC PANEL ALBUMIN [MASS/VOLUME] IN SERUM OR PLASMA 4.3 g/dl 3.4 - 5.0 12/15/2017 Specimen Type: PLASMA Comment: For eGFR: eGFR results >60 are imprecise. Many variables affect the calculated result. Interpretation of eGFR results >60 must be monitored over time. [facility] COMPREHENSIVE METABOLIC PANEL BILIRUBIN.TOTAL [MASS/VOLUME] IN SERUM OR PLASMA 0.6 mg/dL 0.2 - 1.2 12/15/2017 Specimen Type: PLASMA Comment: For eGFR: eGFR results >60 are imprecise. Many variables affect the calculated result. Interpretation of eGFR results >60 must be monitored over time. [facility] COMPREHENSIVE METABOLIC PANEL ASPARTATE AMINOTRANSFERASE [ENZYMATIC ACTIVITY/VOLUME] IN SERUM OR PLASMA 25 U/L 5 - 34 12/15/2017 Specimen Type: PLASMA Comment: For eGFR: eGFR results >60 are imprecise. Many variables affect the calculated result. Interpretation of eGFR results >60 must be monitored over time. [facility] COMPREHENSIVE METABOLIC PANEL ALANINE AMINOTRANSFERASE [ENZYMATIC ACTIVITY/VOLUME] IN SERUM OR PLASMA 18 U/L 8 - 40 12/15/2017 Specimen Type: PLASMA Comment: For eGFR: eGFR results >60 are imprecise. Many variables affect the calculated result. Interpretation of eGFR results >60 must be monitored over time. [facility] COMPREHENSIVE METABOLIC PANEL ANION GAP IN SERUM OR PLASMA 7.8 2017 L Specimen Type: PLASMA Comment: For eGFR: eGFR results >60 are imprecise. Many variables affect the calculated result. Interpretation of eGFR results >60 must be monitored over time. [facility] COMPREHENSIVE METABOLIC PANEL CHLORIDE [MOLES/VOLUME] IN SERUM OR PLASMA 105 mEq/L 98 - 107 12/15/2017 Specimen Type: PLASMA Comment: For eGFR: eGFR results >60 are imprecise. Many variables affect the calculated result. Interpretation of eGFR results >60 must be monitored over time. [facility] COMPREHENSIVE METABOLIC PANEL CARBON DIOXIDE, TOTAL [MOLES/VOLUME] IN SERUM OR PLASMA 27.2 mEq/L 22 - 31 12/15/2017 Specimen Type: PLASMA Comment: For eGFR: eGFR results >60 are imprecise. Many variables affect the calculated result. Interpretation of eGFR results >60 must be monitored over time. [facility] COMPREHENSIVE METABOLIC PANEL ALKALINE PHOSPHATASE [ENZYMATIC ACTIVITY/VOLUME] IN SERUM OR PLASMA 73 U/L 40 - 150 12/15/2017 Specimen Type: PLASMA Comment: For eGFR: eGFR results >60 are imprecise. Many variables affect the calculated result. Interpretation of eGFR results >60 must be monitored over time. [facility] COMPREHENSIVE METABOLIC PANEL GLOMERULAR FILTRATION RATE/1.73 SQ M.PREDICTED [VOLUME RATE/AREA] IN SERUM OR PLASMA BY CREATININE- BASED FORMULA (MDRD) >60 12/15/2017 Specimen Type: PLASMA Comment: For eGFR: eGFR results >60 are imprecise. Many variables affect the calculated result. Interpretation of eGFR results >60 must be monitored over time. [facility] [facility] LIPID PROFILE(HDL,TRIG,CHOL,LDL) CHOLESTEROL [MASS/VOLUME] IN SERUM OR PLASMA 152 mg/dL 0 - 200 12/15/2017 Specimen Type: PLASMA Comment: For eGFR: eGFR results >60 are imprecise. Many variables affect the calculated result. Interpretation of eGFR results >60 must be monitored over time. [facility] LIPID PROFILE(HDL,TRIG,CHOL,LDL) TRIGLYCERIDE [MASS/VOLUME] IN SERUM OR PLASMA 137 mg/dL 0 - 150 12/15/2017 Specimen Type: PLASMA Comment: For eGFR: eGFR results >60 are imprecise. Many variables affect the calculated result. Interpretation of eGFR results >60 must be monitored over time. [facility] LIPID PROFILE(HDL,TRIG,CHOL,LDL) CHOLESTEROL IN HDL [MASS/VOLUME] IN SERUM OR PLASMA 45 mg/dL 12/15/2017 Specimen Type: PLASMA Comment: For eGFR: eGFR results >60 are imprecise. Many variables affect the calculated result. Interpretation of eGFR results >60 must be monitored over time. [facility] LIPID PROFILE(HDL,TRIG,CHOL,LDL) CHOLESTEROL IN LDL [MASS/VOLUME] IN SERUM OR PLASMA BY CALCULATION 79.6 mg/dL 0 - 99.9 12/15/2017 Specimen Type: PLASMA Comment: For eGFR: eGFR results >60 are imprecise. Many variables affect the calculated result. Interpretation of eGFR results >60 must be monitored over time. [facility] URINALYSIS COLOR OF URINE Donna w 12/15/2017 Specimen Type: URINE Comment: Leukocyte esterase positive-C&S performed. Leukocyte esterase positive-C&S performed. [facility] URINALYSIS SPECIFIC GRAVITY OF URINE 1.011 12/15/2017 Specimen Type: URINE Comment: Leukocyte esterase positive-C&S performed. Leukocyte esterase positive-C&S performed. [facility] URINALYSIS UROBILINOGEN [MASS/VOLUME ] IN URINE Negativemg/dL 0.1 - 1.0 12/15/2017 Specimen Type: URINE Comment: Leukocyte esterase positive-C&S performed. Leukocyte esterase positive-C&S performed. [facility] URINALYSIS BILIRUBIN.TOTAL [[place] ESENCE] IN URINE BY TEST STRIP Negative 0 12/15/2017 Specimen Type: URINE Comment: Leukocyte esterase positive-C&S performed. Leukocyte esterase positive-C&S performed. [facility] URINALYSIS KETONES [MASS/VOLUME] IN URINE BY TEST STRIP Negativemg/dl 12/15/2017 Specimen Type: URINE Comment: Leukocyte esterase positive-C&S performed. Leukocyte esterase positive-C&S performed. [facility] URINALYSIS GLUCOSE [MASS/VOLUME] IN URINE BY TEST STRIP Negativemg/dL 12/15/2017 Specimen Type: URINE Comment: Leukocyte esterase positive-C&S performed. Leukocyte esterase positive-C&S performed. [facility] URINALYSIS PROTEIN [MASS/VOLUME] IN URINE BY TEST STRIP Negativemg/dl - Trace" 12/15/2017 Specimen Type: URINE Comment: Leukocyte esterase positive-C&S performed. Leukocyte esterase positive-C&S performed. [facility] URINALYSIS PH OF URINE BY TEST STRIP 7.0 12/15/2017 Specimen Type: URINE Comment: Leukocyte esterase positive-C&S performed. Leukocyte esterase positive-C&S performed. [facility] URINALYSIS BACTERIA [#/AREA] I N URINE SEDIMENT BY MICROSCOPY HIGH POWER FIELD Trace/HPF 12/15/2017 Specimen Type: URINE Comment: Leukocyte esterase positive-C&S performed. Leukocyte esterase positive- C&S performed. [facility] URINALYSIS APPEARANCE OF URINE Crisp y 12/15/2017 Specimen Type: URINE Comment: Leukocyte esterase positive-C&S performed. Leukocyte esterase positive-C&S performed. [facility] URINALYSIS HEMOGLOBIN [PRESENCE] IN URINE Negative 12/15/2017 Specimen Type: URINE Comment: Leukocyte esterase positive-C&S performed. Leukocyte esterase positive-C&S performed. [facility] URINALYSIS NITRITE [PRESENCE] IN URI NE BY TEST STRIP Positive 12/15/2017 Specimen T ype: URINE Comment: Leukocyte esterase positive-C&S performed. Leukocyte esterase positive-C&S performed. [facility] URINALYSIS LEUKOCYTE ESTERASE [PRESENCE] IN URINE BY TEST STRIP Negative 0 12/15/2017 Specimen Type: URINE Comment: Leukocyte esterase positive-C&S performed. Leukocyte esterase positive-C&S performed. [facility] URINALYSIS LEUKOCYTES [#/AREA] IN URINE SEDIMENT BY MICROSCOPY HIGH POWER FIELD 16-20WBC/HPF 0 - 5 12/15/2017 H Specimen Type: URINE Comment: Leukocyte esterase positive-C&S performed. Leukocyte esterase positive-C&S performed. [facility] URINALYSIS ERYTHROCYTES [#/VOL UME] IN URINE SEDIMENT BY MICROSCOPY HIGH POWER FIELD 3-5RBC/HPF 0 - 2 12/15/2017 H Specimen Type: URINE Comment: Leukocyte esterase positive-C&S performed. Leukocyte esterase positive-C&S performed. [facility] URINALYSIS URINE BUDDING YEAST Few 12/15/2017 Specimen Type: URINE Comment: Leukocyte esterase positive-C&S performed. Leukocyte esterase positive-C&S performed. [facility] Vital Signs Combined list of inpatient and outpatient Vital Signs from all [facility] and/or [facility] medical facilities within the last 15 months. The included entries comply with the patient's data sharing authorizations. Vital Sign Value Date Comments Source SYSTOLIC BLOOD PRESSURE 123mm[ Hg] 12/03/2018 09:08:05 [facility] DIASTOLIC BLOOD PRESSURE 70mm[ Hg] 12/03/2018 09:08:05 [facility] PULSE OXIMETRY 96% 12/03/2018 09:08:05 [facility] WEIGHT 200.3[lb_av] 12/03/2018 09:08:05 [facility] BMI 31kg/m2 12/03/2018 09:08:05 [facility] PAIN 0 12/03 09:08:05 [facility] HEIGHT 68[in_us] 12/03/2018 09:08:05 [facility] TEMPERATURE 97.8[degF] 12/03/2018 09:08:05 [facility] PULSE 70/min 12/03/2018 09:08:05 [facility] RESPIRATION 18/min 12/03/2018 09:08:05 [facility] Encounters Combined list of encounters at [facility] and[facility]or [facility] [facility] for the last 15 months. Not all VA inpatient encounters are included. The incl uded entries comply with the patient's data sharing authorizations. Location Location Details Encounter Type Encounter Number Reason For Visit Attending Provider ADM Date DC Date Status Disposition Source Outpatient Encounter [id number] ICD-10 -CM H93.13 Tinnitus, bilateral with Provider Comments: Bilateral tinnitus ([facility] [id number]) JORGE LUIS DAVIS 06/20/2018 [facility] OFFICE/OUT PATIENT VISIT EST [id number] _MAPID: ROSALBA BAUGH 12/03/2018 [facility] Outpatient Encounter [id number] _MAPID :12/04/2018 [facility] Outpatient Encounter [id number] _MAPID:en dRe7 12/14/2018 [place] [address] Outpatient Encounter [id number] _MAPID :end02/01/2019 [facility] Outpatient Encounter [id number] _MAPID :endReason5 04/12/2019 [facility] Outpatient Encounter [id number] _MAPID:e ndReason4 MIRIAM PELLETIER 04/29/2019 [facility] Outpatient Encounter [id number] _MAPID :endReason3 05/07/2019 [facility] Outpatient Encounter [id number] _MAPID:e ndReason2 08/13/2019 [facility] Outpatient Encounter [id number] _MAPID:e ndReason1 [facility] Procedures No Data Provided for This Section Social History Combined list of available smoking, tobacco, and other social history on record at [facility] Defense and/or Veterans Affairs facilities. The included entrie s comply with the patient's data sharing authorizations. Social History Type Response Date Comment Source Tobacco smoking status [facility]-TOBACCO NEVER USED 09/12/2018 [facility] History of tobacco use NON-T OBACCO USER 07/18/2016 [facility] History of tobacco use CURRE NT NON-SMOKER 01/21/2015 [facility] History of tobacco use LIFET FADUMO NON-TOBACCO USER 01/21/2015 [facility] History of tobacco use CURRE NT NON-SMOKER 01/03/2014 [facility] History of tobacco use LIFET FADUMO NON-TOBACCO USER 01/03/2014 [facility] History of tobacco use CURRE NT NON-SMOKER 01/14/2013 [facility] History of tobacco use LIFET FADUMO NON-TOBACCO USER 01/14/2013 [facility] History of tobacco use CURRE NT NON-SMOKER 01/17/2012 [facility] History of tobacco use LIFET FADUMO NON-TOBACCO USER 01/17/2012 [facility] History of tobacco use NON-T OBACCO USER 12/01/2010 [facility] History of tobacco use CURRE NT NON-SMOKER 12/01/2010 [facility] History of tobacco use LIFET FADUMO NON-TOBACCO USER 12/01/2010 [facility] History of tobacco use CURRE NT NON-SMOKER 11/17/2009 [facility] History of tobacco use LIFET FADUMO NON-TOBACCO USER 11/17/2009 [facility] History of tobacco use NON-T OBACCO USER 09/15/2008 [facility] History of tobacco use NON-T OBACCO USER 09/18/2007 [facility] History of tobacco use NON-T OBACCO USER 07/27/2006 [facility] History of tobacco use NON-T OBACCO USER 06/27/2005 [facility] History of tobacco use NON-S MOKER 06/27/2005 [facility] History of tobacco use NON-T OBACCO USER 10/17/2003 [facility] History of tobacco use NON-S MOKER 10/17/2003 [facility] History of tobacco use NON-T OBACCO USER 11/05/2002 [facility] History of tobacco use CURRE NT NON-SMOKER 11/05/2002 [facility] History of tobacco use LIFET FADUMO NON-SMOKER 11/05/2002 [facility] History of tobacco use LIFET FADUMO NON-TOBACCO USER 11/05/2002 [facility] History of tobacco use NON-S MOKER 11/05/2002 [facility] History of tobacco use NON-T OBACCO USER 11/06/2001 [facility] History of tobacco use CURRE NT NON-SMOKER 11/06/2001 [facility] History of tobacco use LIFET FADUMO NON-SMOKER 11/06/2001 [facility] History of tobacco use LIFET FADUMO NON-TOBACCO USER 11/06/2001 [facility] History of tobacco use NON-S MOKER 11/06/2001 [facility] History of tobacco use NON-T OBACCO USER 12/22/2000 [facility] History of tobacco use CURRE NT NON-SMOKER 12/22/2000 [facility] History of tobacco use LIFET FADUMO NON-SMOKER 12/22/2000 [facility] History of tobacco use LIFET FADUMO NON-TOBACCO USER 12/22/2000 [facility] History of tobacco use NON-S MOKER 12/22/2000 [facility] Assessment and Plan No Data Provided for This Section Plan of Care No Data Provided for This Section Family History No Data Provided for This Section Advance Directives No Data Provided for This Section Functional Status No Data Provided for This Section
--- OUTSIDE RECORDS SUMMARY | 2019-11-03 09:08 | XMS REPORT | Encounter Summary ---
Author Author Department of [facility] YORDAN sanders Organization Department of [facility] Address [address] [place] [address] Phone Unavailable Care Team Providers Care Shearing Machine Feeder Name Role Phone MALLORIE BURROUGHS PCP Unavailable Insurance Providers: All historical and current Section Date Range: From patient's date of to the date document was create d. This section includes the names of all active insurance providers for the phi machuca Insurance Provider Type of Coverage Plan Name Start of Policy [place] End of Policy Coverage Group Number Member ID Insurance Provider's Telephone N umber Policy Blair's Name Patient's Relationship to Policy Blair AARP MEDIGAP PLAN F MEDICARE SUPPLEMENT Sep 24, 2002 PLAN F [id number] [phone] YORDAN HAMILTON PATIENT MEDICARE (WNR) MEDICARE (M) PART B Mar 27, 2001 PART B [id number] [phone] YORDAN HAMILTON JR PATIENT MEDICARE (WNR) MEDICARE (M) PART A May 26, 1999 PART A [id number] [phone] YORDAN HAMILTON JR PATIENT Selected Encounter This section includes the information on record at [place] for the Encounter. Date/Time Encounter Type Encounter Description Reason Provider Source May 07, 2019 10:30 AM Outpatient Encounter COMMUNITY CARE CONSULT [facility] IHE Encounter Template Text not used by [place] Assessments - Encounter Diagnoses No Data Provided for This Section Plan of Treatment: Future Appointments (+ 6 months) and Future Tests (+/- 45 day s) The Plan of Treatment section includes future care activities for the patient fr om all VA treatment facilities. This section includes future appointments and fu ture orders which are active, pending or scheduled. Future Appointments This section includes appointments that were scheduled t o occur 6 months from the date of the Encounter, up to a maximum of 20 appointme nts. The data comes from all [place] treatment facilities. Appointment Date/Time Appointment Type Appointment Facili ty Name August 13, 2019 11:00 AM AMBULATORY - NONE [facility] Procedures: All associated to the encounter No Data Provided for This Section Lab Results: +/- 30 days of the encounter No Data Provided for This Section Vital Signs: All taken on the encounter date No Data Provided for This Section Immunizations: All administered on the encounter date No Data Provided for This Section Social History: Smoking Status (Most current) and Tobacco Use (All prior to enco unter date) No Data Provided for This Section Advance Directives: All historical and current No Data Provided for This Section Allergies and Adverse Reactions (ADRs): All historical and current Section Date Range: From patient's date of to the date document was create d. This section includes Allergies and Adverse Reactions (ADR s) on record with VA for the patient. The data comes from a ll [place] treatment facilities. It does not list Allergies/ADRs that were removed or entered in error. Some allergies/ADRs may be reported in t he Immunization section. Allergen Event Date Event Type Reaction(s) Severity Source No Known Allergies [facility], [facility] 15 Medications: VA dispensed (-15 months) and Non-VA Documented (Obtained Outside A) Section Date Range: 1) prescriptions processed by a [place] pharmacy in the last 15 m [facility], and 2) all medications recorded in the [place] medical record as "non-VA medic ations". Pharmacy terms refer to [place] pharmacy's work on prescriptions. VA patient s are advised to take their medications as instructed by their health care team. The data comes from all [place] treatment facilities. Glossary of Pharmacy Terms:Active = A prescription that can be filled at the local [place] pharmacy.Active: On Hold = An active prescription that will not be filled until pharmacy resolves the issue.Active: Susp = An active prescription that is not scheduled to be filled yet.Clinic Order = A medication received during a visit to a [place] clinic or emergency department (currently not available).Discontinued = A prescription stopped by a VA provider. It is no longer available to be filled. = A prescription which is too old to fill. This does not refer to the expiration date of the medication in the container. Non-VA = A medication that came from someplace other than a VA pharmacy. This may be a prescription from either the VA or other providers that was filled outside the VA. Or, it may be an over the counter (OTC), herbal, dietary supplement or sample medication.Pending = This prescription order has been sent to the Pharmacy for review and is not ready yet. Medication Name and Strength Pharmacy Term Instructions Quantity Or dered Prescription Expires Prescription Number Last Dispense Date Ordering Provider Facility ASPIRIN 81MG TAB,EC Non- VA TAKE ONE TABLET BY MOUTH ONCE A DAY Non-VA Documented by: ROSALBA BAUGH nted at: [facility]GELA [facility]ANERJEE BUDESONIDE 80MCG/FORMOTEROL FUM 4.5MCG/SPRAY INHL,ORAL ,10.2GM Non-VA INHALE 2 PUFFS BY ORAL INHALATION THREE TIMES A DAY NEEDED Non-V A Documented by: ROSALBA BAUGH nted at: [facility] CALCIUM CITRATE 315MG/VITAMIN D 200UNT TAB Non-VA TAKE ONE TABLET BY MOUTH TWO TIMES A DAY Non-VA Documented by: ROSALBA BAUGH nted at: [facility] CLOPIDOGREL BISULFATE 75MG TAB Non-VA TAKE ONE TABLET BY MOUTH ONCE A DAY Non-VA Documented by: ROSALBA BAUGH nted at: [facility] DILTIAZEM (24HR DOSING) CAP,SA Non-VA TAKE 90 BY MOUTH EVERY MORNING Non-VA Documented by: ROSALBA BAUGH nted at: [facility] FISH OIL 1000MG (500MG DHA/EPA) CAP,ORAL Non-VA TAKE 1 CAPSULE BY MOUTH TWO TIMES A DAY Non-VA Documented by: ROSALBA BAUGH nted at: [facility] FUROSEMIDE 40MG TAB Non- VA TAKE ONE TABLET BY MOUTH EVERY MORNING NEEDED Non-VA Docume nted by: ROSALBA BAUGH nted at: [facility] GEMFIBROZIL 600MG TAB No n-VA TAKE ONE TABLET BY MOUTH TWO TIMES A DAY BEFORE MEALS Non-VA Documented by: ROSALBA BAUGH nted at: [facility] LEVOTHYROXINE NA 0.05MG TAB (SYNTHROID) Non-VA TAKE ONE TABLET BY MOUTH EVERY MORNING BEFORE MEAL Non-VA Documented by: ROSALBA BAUGH nted at: [facility] LISINOPRIL 5MG TAB Non- VA TAKE ONE-HALF TABLET BY MOUTH EVERY MORNING Non-VA Documented by: ROSALBA BAUGH nted at: [facility] LORATADINE 10MG TAB Non- VA TAKE ONE TABLET BY MOUTH QDAY PRN Non-VA Documented by: ROSALBA BAUGH nted at: [facility] MAGNESIUM OXIDE 400MG TAB Non-VA TAKE ONE TABLET BY MOUTH ONCE A DAY Non-VA Documented by: ROSALBA BAUGH nted at: [facility] MELATONIN 1MG CAP/TAB No n-VA TAKE 10 CAP/TABS BY MOUTH AT BEDTIME Non-VA Documented by: ROSALBA BAUGH nted at: [facility] MELOXICAM 15MG TAB Non- VA TAKE ONE TABLET BY MOUTH ONCE A DAY NEEDED Non-VA Documented by: ROSALBA BAUGH nted at: [facility]ANER[facility] POTASSIUM CHLORIDE 20MEQ TAB,SA (DISPERSIBLE) Non-VA TAKE ONE-HALF TABLET BY MOUTH EVERY MORNING NEEDED Non-VA Documented by: ROSALBA BAUGH nted at: [facility] ROSUVASTATIN CA 40MG TAB Non-VA TAKE ONE- HALF TABLET BY MOUTH AT BEDTIME Non-VA Docume nted by: ROSALBA BAUGH nted at: [facility] SENNOSIDES 8.6MG TAB Non -VA TAKE ONE TABLET BY MOUTH THREE TIMES A DAY Non-VA Documented by: ROSALBA BAUGH nted at: [facility]ANER[facility] TEMAZEPAM 15MG CAP Non- VA TAKE 1 CAPSULE BY MOUTH AT BEDTIME N on-VA Documented by: ROSALBA BAUGH nted at: [facility]ANER[facility] TRAMADOL HCL 50MG TAB No n-VA TAKE ONE TABLET BY MOUTH HS PRN No n-VA Documented by: ROSALBA BAUGH nted at: [facility] Problems (Conditions): All historical and current Section Date Range: From patient's date of to the date document was create d. This section includes a list of Problems (Conditions) know n to VA for the patient. It includes both active and inacti ve problems (conditions). The data comes from all VA treatment facilities. Problem Status Problem Code Date of Onset Date of Resolution Comm ent(s) Provider Source Bilateral tinnitus (SNOMED CT [id number]) Active [id number] LAMAR MARTIN [facility] Bladder cancer Active 501623113 [facility] Chronic kidney disease stage 3 Active 537645671 [facility] History of percutaneous transluminal coronary angioplasty Active 070945003 ROSALBA BAUGH [facility] HTN - Hypertension (SCT 75020419) Active 11794906 ROSALBA BAUGH [facility] Hyperlipidemia Active 34798658 [facility] Hypothyroidism Active 39780335 [facility] Impotence of organic origin Active 736715468 [facility] Sensorineural hearing loss, bilateral Active 935116198 MIKKI FRITZ [facility] Arthritis * (ICD-9-CM 716.90) Inactive 716.90 NovSep 18, 2007 Entered By: KAIN WHITLOCK Comment: knees bilatJun 2008 Entered By: KAIN WHITLOCK Comment: left knee "scrapped" in 2007 MALLORIE BURROUGHS [facility] CAD * (ICD-9-CM 414.9) Inactive 414.9 Dec 15, 2017 ASK DEVEN SERRANO [facility] HYPERLIPIDEMIA NEC/NOS 272.4 Inactive 272.4 Dec 15 ENRIQUE SMALLWOOD Mateo [facility] HYPERTENSION NOS 401.9 Inactive 401.9 Dec 15, 2017 SO ENRIQUE AGUILERA [facility] 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 [facility] Hypothyroidism Inactive 244.9 Dec 15, [address] [facility] IMPAIRED FASTING GLUCOSE. Inactive 799.9 Dec 15, 2017 WH[facility]LOCKKAIN [facility] Knee Joint replacement Status (Prosthetic or Artificial Device) Inactive V43.65 Dec 15, 2017 Jan 17, 2012 Entered By: KAIN BAI Comment: left. juancarlos ceron mo.- oct KAIN WHITLOCK [facility] Personal History of Tobacco Use Inactive V15.82 Dec 15, 2017 July 27, 2006 Entered By: KAIN WHITLOCK Comment: quit smoking in 1999 after cabg KAIN WHITLOCK [facility] Postsurgical Aortocoronary Bypass Status Inactive V45.81 Dec 15, 2017 July 27, 2006 Entered By: KAIN WHITLOCK Comment: in 1999, [facility], [place], [place].Sep 15, 2008 Entered By: KAIN WHITLOCK Comment: [facility] september 12, [place] KAIN WIHTLOCK [facility] Postsurgical Percutaneous Transluminal Coronary Angioplasty Status Inactive V45.82 Dec 15, 2017 Dec 01, 2010 Entered By: KAIN WHITLOCK Comment: /2011. dr woodward. promus drug eluting stent KAIN WHITLOCK [facility] Sensorineural Hearing Loss * (ICD-9-CM 389.10) Inactive 389.10 Dec 15, 2017 KAIN WHITLOCK [facility] Tinnitus * (ICD-9-CM 388.30) Inactive 388.30 Dec 15, 2017 [facility] Radiology Reports: +/- 30 days of the encounter No Data Provided for This Section Pathology Reports: +/- 30 days of the encounter No Data Provided for This Section Encounter Notes: All associated encounter notes No Data Provided for This Section
--- OUTSIDE RECORDS SUMMARY | 2019-11-03 09:08 | XMS REPORT | Encounter Summary ---
Author Author Department [facility] YORDAN sanders Organization Department of [facility] Address [address] [place] [address] Phone Unavailable Care Team Providers Care Manufacturing Process Technician Name Role Phone HEIKEMALLORIE PCP Unavailable Insurance Providers: All historical and [...] MEDICARE SUPPLEMENT Sep 24, 2002 PLAN F [id number] [phone] YORDAN HAMILTON PATIENT MEDICARE (WNR) MEDICARE (M) PART B Mar 27, 2001 PART B [id number] [phone] YORDAN HAMILTON JR PATIENT MEDICARE (WNR) MEDICARE (M) PART A May 26, 1999 PART A [id number] YORDAN HAMILTON JR PATIENT Selected Encounter This section includes the information on record at [place] for the Encounter. Date/Time Encounter Type Encounter Description Reason Provider Source Apr 29, 2019 11:29 AM Outpatient Encounter COMMUNITY CARE CONSULT [facility] Encounter Template Text not used by [place] Assessments - Encounter Diagnoses No Data Provided for This Section Plan of Treatment: Future Appointments (+ 6 months) and Future Tests (+/- 45 day s) The Plan of Treatment section includes future care activities for the patient fr om all [place] treatment facilities. This section includes future appointments and fu ture orders which are active, pending or scheduled. Future Appointments This section includes appointments that were scheduled t o occur 6 months from the date of the Encounter, up to a maximum of 20 appointme nts. The data comes from all [facility] facilities. Appointment Date/Time Appointment Type Appointment Facili [...] patient. The data comes from a ll [place] treatment facilities. It does not list Allergies/ADRs that were removed or entered in error. Some allergies/ADRs may be reported in t he Immunization section. Allergen Event Date Event Type Reaction(s) Severity Source No Known Allergies [facility] 15 Medications: VA dispensed (-15 months) and Non-VA Documented (Obtained Outside A) Section Date Range: 1) prescriptions processed by a [place] pharmacy in the last 15 m [facility], and 2) all medications recorded in the [place] medical record as "non-VA medic ations". Pharmacy terms refer to [place] pharmacy's work on prescriptions. [place] patient s are advised to take their medications as instructed by their health care team. The data comes from all [place] treatment facilities. Glossary of Pharmacy Terms:Active = A prescription that can be filled at the local [place] pharmacy.Active: On Hold = An active prescription that will not be filled until pharmacy resolves the issue.Active: Susp = An active prescription that is not scheduled to be filled yet.Clinic Order = A medication received during a visit to a [place] clinic or emergency department (currently not available).Discontinued [...] A DAY Non-VA Documented by: ROSALBA BAUGH Docume nted at: [facility] CLOPIDOGREL BISULFATE 75MG TAB Non-VA TAKE ONE TABLET BY MOUTH ONCE A DAY Non-VA Documented by: ROSALBA BAUGH nted at: [facility] DILTIAZEM (24HR DOSING) CAP,SA Non-VA TAKE 90 BY MOUTH EVERY MORNING Non-VA Documented by: ROSALBA BAUGHume nted at: [facility] FISH OIL 1000MG (500MG DHA/EPA) CAP,ORAL Non-VA TAKE 1 CAPSULE BY MOUTH TWO TIMES A DAY Non-VA Documented by: ROSALBA BAUGHume nted at: ANGELA BANERJEE FUROSEMIDE 40MG TAB Non- VA TAKE ONE TABLET BY MOUTH EVERY MORNING NEEDED Non-VA Docume nted by: ROSALBA BAUGH nted at: MILLER CBLEYLA GEMFIBROZIL 600MG TAB No n-VA TAKE ONE TABLET BY MOUTH TWO TIMES A DAY BEFORE MEALS Non-VA Documented by: ROSALBA BAUGH nted at: [facility] LEVOTHYROXINE NA 0.05MG TAB (SYNTHROID) Non-VA TAKE ONE TABLET BY MOUTH EVERY MORNING BEFORE MEAL Non-VA Documented by: ROSALBA BAUGH nted at: ANGELA BANERJEE LISINOPRIL 5MG TAB Non- VA TAKE ONE-HALF [...] ent(s) Provider Source Bilateral tinnitus (SNOMED CT [id number]) Active [id number] LAMAR MARTIN [facility] Bladder cancer Active 178865967 KAIN WHITLOCK [facility] Chronic kidney disease stage 3 Active 142849703 KAIN WHITLOCK [facility] History of percutaneous transluminal coronary angioplasty Active 333354859 AMAURIROSALBA [facility] HTN - Hypertension (SCT 16332252) Active 07803212 SACRAMENTOROSALBA [facility] Hyperlipidemia Active 13525963 KAIN WHITLOCK [facility] Hypothyroidism Active 20554507 KAIN WHITLOCK [facility] Impotence of organic origin Active 992328373 KAIN VENTURA [facility] Sensorineural hearing loss, bilateral Active 750373606 MIKKI FRITZ [facility] Arthritis * (ICD-9-CM 716.90) Inactive 716.90 NovSep 18, 2007 Entered By: KAIN WHITLOCK Comment: knees bilatSep 15, 2008 Entered By: KAIN WHITLOCK Comment: left knee "scrapped" in 2007 MALLORIE BURROUGHS [facility] CAD * (ICD-9-CM 414.9) Inactive 414.9 Dec 15, 2017 ASK DEVEN SERRANO [facility] HYPERLIPIDEMIA NEC/NOS 272.4 Inactive 272.4 Dec 15 ENRIQUE SMALLWOOD [facility] HYPERTENSION NOS 401.9 Inactive 401.9 Dec 15, 2017 SO ENRIQUE AGUILERA [facility] 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 KAIN WHITLOCK [facility] Hypothyroidism Inactive 244.9 Dec 15, 2017 KAIN WHITLOCK [facility] IMPAIRED FASTING GLUCOSE. Inactive 799.9 Dec 15, 2017 KAIN WHITLOCK [facility] Knee Joint replacement Status (Prosthetic or Artificial Device) Inactive V43.65 Dec 15, 2017 Jan 17, 2012 Entered By: KAIN BAI Comment: left. juancarlos ceron mo.- oct KAIN WHITLOCK [facility] Personal History of Tobacco Use Inactive V15.82 Dec 15, 2017 July 27, 2006 Entered By: KAIN WHITLOCK Comment: quit smoking in 1999 after cabg KAIN WHITLOCK [facility] Postsurgical Aortocoronary Bypass Status Inactive V45.81 Dec 15, 2017 July 27, 2006 Entered By: KAIN WHITLOCK Comment: [facility] 1999, [facility] [place]Sep 15, 2008 Entered By: KAIN WHITLOCK Comment: [facility] september 12, [place] KAIN WHITLOCK [facility] Postsurgical Percutaneous Transluminal Coronary Angioplasty Status Inactive V45.82 Dec 15, 2017 Dec 01, 2010 Entered By: KAIN WHITLOCK Comment: /2011. dr woodward. promus drug eluting stent KAIN WHITLOCK [facility] Sensorineural Hearing Loss * (ICD-9-CM 389.10) Inactive 389.10 Dec 15, 2017 KAIN WHITLOCK [facility] Tinnitus * (ICD-9-CM 388.30) Inactive 388.30 Dec 15, 2017 [facility] Radiology Reports: +/- 30 days of the encounter No Data Provided for This Section Pathology Reports: +/- 30 days of the encounter No Data Provided for This Section Encounter Notes: All associated encounter notes This section contains the clinical notes associated to the Encounter. Date/Time Encounter Note(s) Provider Source Apr 29, 2019 11:29 AM NONVA NOTE: LOCAL TITLE: COMMUNITY CARE-SCHEDULING STANDARD TITLE: NONVA NOTE DATE OF NOTE: APR 29, 2019@11:29 ENTRY DATE: APR 29, 2019@11:29:17 AUTHOR: VEENA LOVETTIGNER: URGENCY: STATUS: COMPLETED Patient Centered Community Care ([facility]) Program VA Schedules ([id number]) Department of Veterans Affairs [facility] CHOICE APPROVAL FOR MEDICAL CARE VA-FORM [id number] Certain protected health information (PHI) may be enclosed; specifically information related to HIV, sickle cell anemia and substance abuse. This specific PHI may NOT be re-disclosed or used by the recipient person or office for any purpose other than that for which the disclosure was made. [Ref. 38 [facility] 7332(b)(2)(H)(ii)] The information is being disclosed by [place] only for the treatment and care of the named patient in the health record. Accounting of disclosure must be maintained when required. [place] AUTH #: [id number] CONSULT #: [id number] Please select referral urgency: Routine Clinically Indicated Date (MANI): Mar Category of Care/Type of Specialty: AUDIOLOGY Type of Specialist: BAKERY DELIVERER Diagnosis Code/Chief Complaint: Encounter for Examination of Ears and Hearing with other Abnormal Findings(ICD- 10-CM Z01.118) Type of Service/Procedure, Number of Visits, Frequency and Duration: Duration:240 days Procedural Overview: 1. Initial outpatient evaluation and treatment for a comprehensive diagnostic audiologic evaluation for the referred condition indicated on the consult 2. Hearing aid fitting 3. Follow-up visits for this episode of care Please visit the [facility] Storefront [email or web address] for additional resources and requirements pertaining to the following Pharmacy prescribing requirements Durable Medical Equipment (DME), Prosthetics, and Orthotics prescribing requirements Precertification (PRCT) process requirements Request for Services (RFS) requirements GISEL Eligibility Verification: As the authorized VA malt liquors sales representative, I hereby confirm that the [place] is eligible for Community Care services. The [place]'s basic eligibility was verified in CPRS or the enrollment system on Mar@11:29 Facility: [place] Community Police Patrol Officer: Name: Jessica Oseguera Title: Nurse Tellers Supervisor [facility] Report all CRITICAL FINDINGS related to this authorization to the issuing office below. ALL other questions regarding this authorization should be directed to: [id number] Local [place] Office of Community Care (OCC) Contact Number (Normal Business Hours): [phone] AOD/Emergency Contact After Hours Number: [phone] VA Issuing Office: From Station #: [id number] Facility Name: Wesley Tejada [facility] Street Address: [address] City: [place]: [place] Zip: [address] [place] Information: Name: YORDAN HAMILTON : May SSN: [id number] Address: Phone: [place] Alternate Phone: In accordance with section 101 of the Veterans Access, Choice, and Accountability Act of 2014 (the Act)(Public Law 113-146, 128 Stat. 1754), as amended by the Department of Veterans Affairs (VA), the Expiring Authorities Act of 2014(Public Law 113-175, 128 Stat. 1902), the Consolidated and Further Continuing Appropriations Act of 2015 (Public Law 113 -235, 128 Stat. 2568), and 38 CFR 17.6292-7631, [place] will pay for non-VA hospital care and medical services that are authorized by [place] for Veterans who are determined by [place] to meet the Veterans Choice Program eligibility criteria set forth by section 101 of the Act and 38 CFR 17.1510 and any other eligibility standards that may apply to particular services (such as health care for newborns of Veterans under 38 CFR 17.38(a)(xiv) and dental benefits under 17.160-17.169). APPOINTMENT INFORMATION [place] has an appointment scheduled on Apr@10:30 with: Provider: Tl Anaya AUD/Maeve Reynolds/ Address: [address] [place] [address] City: [place] State: [place] Zip: [address] /es/ VEENA LOVETT AMSA Signed: 04/29/2019 11:34 VEENA LOVETT [facility]
--- OUTSIDE RECORDS SUMMARY | 2019-11-03 09:08 | XMS REPORT ---
Author Author Department [facility] YORDAN sanders Organization Department [facility] Address [address] [place] [address] Phone Unavailable Care Team Providers Care Ferryboat Operator Cable Name Role Phone HEIKE MALLORIE PCP Unavailable Insurance Providers: All historical and [...] MEDICARE SUPPLEMENT Sep 24, 2002 PLAN F [id number] [phone] YORDAN HAMILTON PATIENT MEDICARE (WNR) MEDICARE (M) PART B Mar 27, 2001 PART B [id number] [phone] YORDAN HAMILTON JR PATIENT MEDICARE (WNR) MEDICARE (M) PART A May 26, 1999 PART A [id number] [phone] YORDAN HAMILTON JR PATIENT Selected Encounter This section includes the information on record at [place] for the Encounter. Date/Time Encounter Type Encounter Description Reason Provider Source August 13, 2019 08:00 AM Outpatient Encounter ADMIN PAT ACTIVTIES (MASNO NCT) [facility] 15 IHE Encounter Template Text not used by [place] Assessments - Encounter Diagnoses No Data Provided for This Section Plan of Treatment: Future Appointments (+ 6 months) and Future Tests (+/- 45 day s) No Data Provided for This Section Surgical Procedures: All associated to the encounter [...] Adverse Reactions (ADR s) on record with [place] for the patient. The data comes from a ll [place] treatment facilities. It does not list Allergies/ADRs that were removed or entered in error. Some allergies/ADRs may be reported in t he Immunization section. Allergen Event Date Event Type Reaction(s) Severity Source No Known Allergies [facility], [facility] 15 Medications: VA dispensed (-15 months) and Non-VA Documented (Obtained Outside A) Section Date Range: 1) prescriptions processed by a [place] pharmacy in the last 15 m ont, and 2) all medications recorded in the [place] medical record as "non-VA medic ations". Pharmacy terms refer to [place] pharmacy's work on prescriptions. [place] patient s are advised to take their medications as instructed by their health care team. The data comes from all [place] treatment facilities. Glossary of Pharmacy Terms:Active = A prescription that can be filled at the local [place] pharmacy.Active: On Hold = An active prescription that will not be filled until pharmacy resolves the issue.Active: Susp = An active prescription that is not scheduled to be filled yet.Clinic Order = A medication received during a visit to a [place] clinic or emergency department (currently not available).Discontinued [...] ONCE A DAY Non-VA Documented by: ROSALBA BAUGHed at: ANGELA BANERJEE DILTIAZEM (24HR DOSING) CAP,SA Non-VA TAKE 90 BY MOUTH EVERY MORNING Non-VA Documented by: ROSALBA BAUGH nted at: ANGELA BANERJEE FISH OIL 1000MG (500MG DHA/EPA) CAP,ORAL Non-VA TAKE 1 CAPSULE BY MOUTH TWO TIMES A DAY Non-VA Documented by: ROSALBA BAUGH nted at: ANGELA BANERJEE FUROSEMIDE 40MG TAB Non- VA TAKE ONE TABLET BY MOUTH EVERY MORNING NEEDED Non-VA Docume nted by: ROSALBA BAUGH nted at: ANGELA BANERJEE GEMFIBROZIL 600MG TAB No n-VA TAKE ONE TABLET BY MOUTH TWO TIMES A DAY BEFORE MEALS Non-VA Documented by: ROSALBA BAUGH nted at: ANGELA BANERJEE LEVOTHYROXINE NA 0.05MG TAB (SYNTHROID) Non-VA TAKE ONE TABLET BY MOUTH EVERY MORNING BEFORE MEAL Non-VA Documented by: ROSALBA BAUGH nted at: ANGELA BANERJEE LISINOPRIL 5MG TAB Non- [place] TAKE ONE-HALF TABLET BY MOUTH EVERY MORNING Non-VA Documented by: ROSALBA BAUGHed at: ANGELA BANERJEE LORATADINE 10MG TAB Non- [...] problems (conditions). The data comes from all [place] treatment facilities. Problem Status Problem Code Date of Onset Date of Resolution Comm ent(s) Provider Source Bilateral tinnitus (SNOMED CT [id number]) Active [id number] LAMAR MARTIN [facility] Bladder cancer Active 707162303 KAIN WHITLOCK [facility] Chronic kidney disease stage 3 Active 634853687 KAIN WHITLOCK [facility] History of percutaneous transluminal coronary angioplasty Active 137489231 FRANK BAUGHT [facility] HTN - Hypertension ([facility] [id number]) Active 11020082 ALVAROSALBA [facility] Hyperlipidemia Active 67065782 KAIN WHITLOCK [facility] Hypothyroidism Active 19722928 KAIN WHITLOCK [facility] Impotence of organic origin Active 050997535 KAIN VENTURA [facility] Sensorineural hearing loss, bilateral Active 746982409 MIKKI FRITZ [facility] Arthritis * (ICD-9-CM 716.90) Inactive 716.90 NovSep 18, 2007 Entered By: KAIN WHITLOCK Comment: knees bilatSep 15, 2008 Entered By: KAIN WHITLOCK Comment: left knee "scrapped" in 2007 MALLORIE BURROUGHS [facility] CAD * (ICD-9-CM 414.9) Inactive 414.9 Dec 15, 2017 ASK DEVEN SERRANO [facility] HYPERLIPIDEMIA NEC/NOS 272.4 Inactive 272.4 Dec 15 ENRIQUE SMALLWOOD [facility] HYPERTENSION NOS 401.9 Inactive 401.9 Dec 15, 2017 [facility] 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 KAIN WHITLOCK [facility] Hypothyroidism Inactive 244.9 Dec 15, 2017 KAIN WHITLOCK [facility] IMPAIRED FASTING GLUCOSE. Inactive 799.9 Dec 15, 2017 KAIN WHITLOCK [facility] Knee Joint replacement Status (Prosthetic or Artificial Device) Inactive V43.65 Dec 15, 2017 Jan 17, 2012 Entered By: KAIN BAI Comment: left. juancarlos ceron mo.- oct KAIN WHITLOCK [facility] Personal History of Tobacco Use Inactive V15.82 Dec 15, 2017 July 27, 2006 Entered By: KAIN WHITLOCK Comment: quit smoking in yr 1999 after cabg [facility] Postsurgical Aortocoronary Bypass Status Inactive V45.81 Dec 15, 2017 July 27, 2006 Entered By: KAIN WHITLOCK Comment: in 1999, [facility], [place].Sep 15, 2008 Entered By: KAIN WHITLOCK Comment: [facility] sept[place] 12, [place] [facility]AIN [facility]ITOLCK [facility] Postsurgical Percutaneous Transluminal Coronary Angioplasty Status Inactive V45.82 Dec 15, 2017 Dec 01, 2010 Entered By: KAIN WHITLOCK Comment: /2011. dr woodward. promus drug eluting stent KAIN WHITLOCK [facility] Sensorineural Hearing Loss * (ICD-9-CM 389.10) Inactive 389.10 Dec 15, 2017 KAIN WHITLOCK [facility] Tinnitus * (ICD-9-CM 388.30) Inactive 388.30 Dec 15, 2017 [facility] Radiology Reports: +/- 30 days of the encounter No Data Provided for This Section Pathology Reports: +/- 30 days of the encounter No Data Provided for This Section Encounter Notes: All associated encounter notes This section contains the clinical notes associated to the Encounter. Date/Time Encounter Note(s) Provider Source August 13, 2019 08:00 AM NONVA CONSULT: LOCAL TITLE: COMMUNITY CARE CONSULT RESULTS NOTE MO STANDARD TITLE: NONVA CONSULT DATE OF NOTE: AUGUST 13, 2019@08:00 ENTRY DATE: AUGUST 23, 2019@13:27:02 AUTHOR: VEENA LOVETT EXP COSIGNER: URGENCY: STATUS: COMPLETED The following Non VA Care consult has been completed. See scanned document for report. NON VA Care Consult Results Audiology Comment: [facility]/08-13-2019 /evelyne/ VEENA LOVETT AMSA Signed: 08/23/2019 13:27 VEENA LOVETT [facility]
--- OUTSIDE RECORDS SUMMARY | 2019-11-03 09:08 | XMS REPORT | Encounter Summary ---
Author Author [facility] YORDAN sanders Organization Department of [facility] Address [address] [place] [address] Phone Unavailable Care Team Providers Care Station Engineer Main Line Name Role Phone MALLORIE BURROUGHS PCP Unavailable [...] MEDICARE SUPPLEMENT Sep 24, 2002 PLAN F [id number] [phone] YORDAN HAMILTON PATIENT MEDICARE (WNR) MEDICARE (M) PART B Mar 27, 2001 PART B [id number] YORDAN HAMILTON JR PATIENT MEDICARE (WNR) MEDICARE (M) PART A May 26, 1999 PART A [id number] [id number] [phone] YORDAN HAMILTON JR PATIENT Selected Encounter This section includes the information on record at [place] for the Encounter. Date/Time Encounter Type Encounter Description Reason Provider Source Dec 14, 2018 08:30 AM Outpatient Encounter PRIMARY CARE/MEDICINE [facility] 15 E Encounter Template Text not used by [place] Assessments - Encounter Diagnoses No Data Provided for This Section Plan of Treatment: Future Appointments (+ 6 months) and Future Tests (+/- 45 day s) No Data Provided for This Section Surgical Procedures: All associated to the encounter No Data Provided for This Section Lab Results: +/- 30 days of the encounter This section includes the Chemistry and Hematology Lab R esults on record with [place] for the patient. Radiology Reports and Pathology Report s are provided separately, in subsequent sections. Lab Results This section contains the Chemistry/Hematology Results tristian t were resulted 30 days before or 30 days after the date of the Encounter. Date/Time Source Result Type Result - Unit Interpretation Reference Range Comment Dec 03, 2018 09:20 AM [facility] CBC & DIFF Specimen Type: BLOOD Comment: Manual diff performed. 12/03/18 WBC 5.6 K/cmm 3.60-11.20 RBC 4.62 M/ul 4.1-5.7 HGB 14.6 g/dl 13.1-16.8 HCT 42.8 % 38.2-48.4 MCV 92.6 fl 80.1-98.5 MCH 31.6 pg 27.0-34.0 MCHC 34.1 g/dl 33.0-36.0 PLATELET COUNT 175 K/cmm 150-400 MPV 9.7 fl 7.5-11.2 NEUTROPHILS 62 % 44-80 LYMPHOCYTES 14 % L 20-40 MONOCYTES 11 % H 4-8 EOSINOPHILS 12 % H 0-8 BASOPHILS 1 % 0-3 NORMAL RBC YES RDW 13.6 % 11.8-15.1 Dec 03, 2018 09:20 AM [facility] COMPREHENSIVE METABOLIC PA CARL Specimen Type: PLASMA No comment entered. *CREATININE 1.37 mg/dL H 0.7-1.3 UREA NITROGEN mg/dL 23 mg/dL 9-25 GLUCOSE 112 mg/dL H 72-99 SODIUM 139 mEq/L 136-145 POTASSIUM 4.3 mEq/L 3.5-5.0 CALCIUM (mg/dL) 9.9 mg/dL 8.4-10.4 PROTEIN,TOTAL 7.6 g/dL 6.0-8.6 ALBUMIN 4.4 g/dl 3.4-5.0 TOTAL BILIRUBIN 0.5 mg/dL 0.2-1.2 ASPARTATE TRANSAMINASE 20 U/L 5-34 ALANINE AMINOTRANSFERASE 14 U/L 8-40 ANION GAP 8.5 8-16 CHLORIDE 105 mEq/L 98-107 CO2 25.5 mEq/L 22-31 ALKALINE PHOSPHATASE 52 U/L 40-150 EGFR 49.5 Dec 03, 2018 09:20 AM [facility] LIPID PROFILE(HDL,TRIG,CHO L,LDL) Specimen Type: PLASMA No comment entered. CHOLESTEROL 144 mg/dL 0-200 TRIGS 147 mg/dL 0-150 HDL-CHOLESTEROL 37 mg/dL L >40 LDL (CALC) 78 mg/dL 0-99.9 Dec 03, 2018 09:20 AM [facility] PROSTATIC SPECIFIC ANTIGEN (TOTAL) Specimen Type: SERUM No comment entered. PROSTATIC SPECIFIC ANTIGEN(TOTAL) 0.0 ng/mL 0-4 Dec 03, 2018 09:20 AM [facility] TSH Specimen Type: SERUM No comment entered. TSH 2.80 uIU/mL 0.47-5.00 Vital Signs: All taken on the encounter [...] patient. The data comes from a ll [place] treatment facilities. It does not list Allergies/ADRs that were removed or entered in error. Some allergies/ADRs may be reported in t he Immunization section. Allergen Event Date Event Type Reaction(s) Severity Source No Known Allergies [facility] 15 Medications: VA dispensed (-15 months) and Non-VA Documented (Obtained Outside [facility]) Section Date Range: 1) prescriptions processed by a [place] pharmacy in the last 15 m [facility], and 2) all medications recorded in the [place] medical record as "non-VA medic ations". Pharmacy terms refer to [place] pharmacy's work on prescriptions. VA patient s are advised to take their medications as instructed by their health care team. The data comes from all [place] treatment facilities. Glossary of Pharmacy Terms:Active = A prescription that can be filled at the local [place] pharmacy.Active: On Hold = An active prescription that will not be filled until pharmacy resolves the issue.Active: Susp = An active prescription that is not scheduled to be filled yet.Clinic Order = A medication received during a visit to a [place] clinic or emergency department (currently not available).Discontinued [...] ent(s) Provider Source Bilateral tinnitus (SNOMED CT 4188286357380) Active [id number] LAMAR MARTIN [facility] Bladder cancer Active 988441562 [facility]AIN WH[facility]LOCK [facility] Chronic kidney disease stage 3 Active 348849900 [facility]AIN WHITLOCK [facility] History of percutaneous transluminal coronary angioplasty Active 358800314 AMAURI,ROSALBA [facility] HTN - Hypertension (SCT 99153054) Active 52056467 AUGUSTAROSALBA [facility] Hyperlipidemia Active 99889453 KAIN WHITLOCK [facility] Hypothyroidism Active 06936088 KAIN WHITLOCK [facility] Impotence of organic origin Active 906733236 KAIN VENTURA [facility] Sensorineural hearing loss, bilateral Active 690665538 MIKKI FRITZ [facility] Arthritis * (ICD-9-CM 716.90) Inactive 716.90 NovSep 18, 2007 Entered By: KAIN WHITLOCK Comment: knees bilatJun 2008 Entered By: KAIN WHITLOCK Comment: left knee "scrapped" in 2007 MALLORIE BURROUGHS [facility] CAD * (ICD-9-CM 414.9) Inactive 414.9 Dec 15, 2017 ASK DEVEN SERRANO [facility] HYPERLIPIDEMIA NEC/NOS 272.4 Inactive 272.4 Dec 15 ENRIQUE SMALLWOOD [facility] HYPERTENSION NOS 401.9 Inactive 401.9 Dec 15, 2017 SO ENRIQUE AGUILERA [facility] 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 KAIN WHITLOCK [facility] Hypothyroidism Inactive 244.9 Dec 15, 2017 KAIN WHITLOCK [facility] IMPAIRED FASTING GLUCOSE. Inactive 799.9 Dec 15, 2017 KAIN WHITLOCK [facility] Knee Joint replacement Status (Prosthetic or Artificial Device) Inactive V43.65 Dec 15, 2017 Jan 17, 2012 Entered By: KAIN BAI Comment: left. juancarlos ceron mo.- oct [facility]AIN [facility]ITLOCK [facility] Personal History of Tobacco Use Inactive V15.82 Dec 15, 2017 July 27, 2006 Entered By: KAIN WHITLOCK Comment: quit smoking in 1999 after cabg KAIN WHITLOCK [facility] Postsurgical Aortocoronary Bypass Status Inactive V45.81 Dec 15, 2017 July 27, 2006 Entered By: KAIN WHITLOCK Comment: in 1999, [facility], [place], [place].Sep 15, 2008 Entered By: KAIN WHITLOCK Comment: [facility] september 12, [place], [place]. KAIN WHITLOCK [facility] Postsurgical Percutaneous Transluminal Coronary Angioplasty Status Inactive V45.82 Dec 15, 2017 Dec 01, 2010 Entered By: KAIN WHITLOCK Comment: /2011. dr woodward. promus drug eluting stent KAIN WHITLOCK [facility] Sensorineural Hearing Loss * (ICD-9-CM 389.10) Inactive 389.10 Dec 15, 2017 KAIN WHITLOCK [facility] Tinnitus * (ICD-9-CM 388.30) Inactive 388.30 Dec 15, 2017 KAIN WHITLOCK [facility] Radiology Reports: +/- 30 days of the encounter No Data Provided for This Section Pathology Reports: +/- 30 days of the encounter No Data Provided for This Section Encounter Notes: All associated encounter notes No Data Provided for This Section
--- OUTSIDE RECORDS SUMMARY | 2019-11-03 09:10 | XMS REPORT | Encounter Summary ---
Author Author [facility] YORDAN sanders Organization Department of [facility] Address [address] [place] [address] Phone Unavailable Care Team Providers Care Wool Shearer Name Role Phone HEIKEMALLORIE PCP Unavailable Insurance [...] MEDICARE SUPPLEMENT Sep 24, 2002 PLAN F [id number] [phone] YORDAN HAMILTON PATIENT MEDICARE (WNR) MEDICARE (M) PART B Mar 27, 2001 PART B [id number] PW80 [phone] YORDAN HAMILTON JR PATIENT MEDICARE (WNR) MEDICARE (M) PART A May 26, 1999 PART A [id number] [phone] YORDAN HAMILTON JR PATIENT Selected Encounter This section includes the information on record at [place] for the Encounter. Date/Time Encounter Type Encounter Description Reason Provider Source Dec 04, 2018 10:27 AM Outpatient Encounter ADMIN PAT ACTIVTIES (MASNO NCT) [facility] IHE Encounter Template Text not used by VA Assessments - Encounter Diagnoses No Data Provided [...] Hematology Lab R esults on record with VA for the patient. Radiology Reports and Pathology Report s are provided separately, in subsequent sections. Lab Results This section contains the Chemistry/Hematology Results tristian t were resulted 30 days before or 30 days after the date of the Encounter. Date/Time Source Result Type Result - Unit Interpretation Reference Range Comment Dec 03, 2018 09:20 AM [facility] CBC & DIFF Specimen Type: BLOOD [...] % 11.8-15.1 Dec 03, 2018 09:20 AM [facility] COMPREHENSIVE METABOLIC PA CARL Specimen Type: [...] EGFR 49.5 Dec 03, 2018 09:20 AM [facility] LIPID PROFILE(HDL,TRIG,CHO L,LDL) Specimen Type: PLASMA [...] Use (All prior to enco unter date) This section includes the most current, and the historical, smoking and tobacco- related health factors from the [place] facility where the Encounter took place. Current Smoking Status This section includes the most current smoking, or tobacco -related health factor, from the [place] facility where the Encounter took place. Date/Time Current Smoking Status Comment Facility Sep 12, 2018 09:38 AM VA-TOBACCO NEVER USED [facility] Tobacco Use History This section includes a history of the smoking, or tobacco -related health factors, that were collected on or before the date of the Encoun ter. The data comes from the [place] facility where the Encounter took place. Date/Time Smoking Status/Tobacco Use Comment [facility] Jul 18, 2016 11:05 AM NON-TOBACCO USER [facility] Jan 21, 2015 04:01 PM CURRENT NON-SMOKER [facility] Jan 21, 2015 04:01 PM LIFETIME NON-TOBACCO USER [facility] Jan 03, 2014 10:30 AM CURRENT NON-SMOKER [facility] Jan 03, 2014 10:30 AM LIFETIME NON-TOBACCO USER [facility] Jan 14, 2013 10:29 AM CURRENT NON-SMOKER [facility] Jan 14, 2013 10:29 AM LIFETIME NON-TOBACCO USER [facility] Jan 17, 2012 09:48 AM CURRENT NON-SMOKER [facility] Jan 17, 2012 09:48 AM LIFETIME NON-TOBACCO USER [facility] Dec 01, 2010 10:53 AM CURRENT NON-SMOKER [facility] Dec 01, 2010 10:53 AM LIFETIME NON-TOBACCO USER [facility] Dec 01, 2010 10:53 AM NON-TOBACCO USER [facility] Nov 17, 2009 09:01 AM CURRENT NON-SMOKER [facility] Nov 17, 2009 09:01 AM LIFETIME NON-TOBACCO USER [facility] Sep 15, 2008 09:22 AM NON-TOBACCO USER [facility] Sep 18, 2007 08:58 AM NON-TOBACCO USER [facility] July 27, 2006 10:23 AM NON-TOBACCO USER [facility] Jun 27, 2005 10:02 AM NON-SMOKER [facility] Jun 27, 2005 10:02 AM NON-TOBACCO USER [facility] Oct 17, 2003 09:18 AM NON-SMOKER [facility] Oct 17, 2003 09:18 AM NON-TOBACCO USER [facility] Nov 05, 2002 08:09 AM CURRENT NON-SMOKER [facility] Nov 05, 2002 08:09 AM LIFETIME NON-SMOKER [facility] Nov 05, 2002 08:09 AM LIFETIME NON-TOBACCO USER [facility] Nov 05, 2002 08:09 AM NON-SMOKER [facility] Nov 05, 2002 08:09 AM NON-TOBACCO USER [facility] Nov 06, 2001 09:15 AM CURRENT NON-SMOKER [facility] Nov 06, 2001 09:15 AM LIFETIME NON-SMOKER [facility] Nov 06, 2001 09:15 AM LIFETIME NON-TOBACCO USER [facility] Nov 06, 2001 09:15 AM NON-SMOKER [facility] Nov 06, 2001 09:15 AM NON-TOBACCO USER [facility] Dec 22, 2000 06:25 AM CURRENT NON-SMOKER [facility] Dec 22, 2000 06:25 AM LIFETIME NON-SMOKER [facility] Dec 22, 2000 06:25 AM LIFETIME NON-TOBACCO USER [facility] Dec 22, 2000 06:25 AM NON-SMOKER [facility] Dec 22, 2000 06:25 AM NON-TOBACCO USER [facility] Advance Directives: All historical and current No Data Provided for This Section Allergies and Adverse Reactions (ADRs): All historical and current Section Date Range: From patient's date of to the date document was create d. This section includes Allergies and Adverse Reactions (ADR s) on record with [place] for the patient. The data comes from a [facility] treatment facilities. It does not list Allergies/ADRs that were removed or entered in error. Some allergies/ADRs may be reported in t he Immunization section. Allergen Event Date Event Type Reaction(s) Severity Source No Known Allergies [facility] 15 Medications: VA dispensed (-15 months) and Non-VA Documented (Obtained Outside [facility]) Section Date Range: 1) prescriptions processed by a [place] pharmacy in the last 15 m [facility], and 2) all medications recorded in the [place] medical record as "non-VA medic ations". Pharmacy terms refer to [place] pharmacy's work on prescriptions. [place] patient s are advised to take their medications as instructed by their health care team. The data comes from all [place] treatment facilities. Glossary of Pharmacy Terms:Active = A prescription that can be filled at the local [place] pharmacy.Active: On Hold = An active prescription that will not be filled until pharmacy resolves the issue.Active: Susp = An active prescription that is not scheduled to be filled yet.Clinic Order = A medication received during a visit to a [place] clinic or emergency department (currently not available).Discontinued [...] by: ROSALBA BAUGH nted at: [facility] LISINOPRIL 5MG TAB Non- VA TAKE ONE-HALF TABLET BY MOUTH EVERY MORNING Non-VA Documented by: ROSALBA BAUGH nted at: [facility] LORATADINE 10MG TAB Non- [place] TAKE ONE TABLET BY MOUTH QDAY PRN Non-VA Documented by: ROSALBA BAUGH nted at: [facility] MAGNESIUM OXIDE 400MG TAB Non-VA TAKE ONE TABLET BY MOUTH ONCE A DAY Non-VA Documented by: ROSALBA BAUGH nted at: [facility] MELATONIN 1MG CAP/TAB No n-VA TAKE 10 CAP/TABS BY MOUTH AT BEDTIME Non-VA Documented by: ROSALBA BAUGH nted at: [facility] MELOXICAM 15MG TAB Non- VA TAKE ONE TABLET BY MOUTH ONCE A DAY NEEDED Non-VA Documented by: ROSALBA BAUGH nted at: [facility] POTASSIUM CHLORIDE 20MEQ TAB,SA (DISPERSIBLE) Non-VA TAKE ONE-HALF TABLET BY MOUTH EVERY MORNING NEEDED Non-VA Documented by: ROSALBA BAUGH nted at: [facility] ROSUVASTATIN CA 40MG TAB Non-VA TAKE ONE- HALF TABLET BY MOUTH AT BEDTIME Non-VA Docume nted by: ROSALBA BAUGH Docume nted at: [facility] SENNOSIDES 8.6MG TAB Non -VA TAKE ONE TABLET BY MOUTH THREE TIMES A DAY Non-VA Documented by: ROSALBA BAUGH Docume nted at: [facility] TEMAZEPAM 15MG CAP Non- VA TAKE 1 CAPSULE BY MOUTH AT BEDTIME N on-VA Documented by: ROSALBA BAUGH nted at: [facility] TRAMADOL HCL 50MG TAB No n-VA TAKE ONE TABLET BY MOUTH HS PRN No n-VA Documented by: ROSALBA BAUGH Docume nted at: [facility] Problems (Conditions): All historical and current Section Date Range: From patient's date of to the date document was create d. This section includes a list of Problems (Conditions) know n to [place] for the patient. It includes both active and inacti ve problems (conditions). The data comes from all [place] treatment facilities. Problem Status Problem Code Date of Onset Date of Resolution Comm ent(s) Provider Source Bilateral tinnitus (SNOMED CT 0220211981755) Active [id number] LAMAR [facility]IN [facility] Bladder cancer Active 006004263 KAIN WHITLOCK [facility] Chronic kidney disease stage 3 Active 856983759 WHITLOCKKAIN [facility] History of percutaneous transluminal coronary angioplasty Active 751655321 KINSEYROSALBA [facility] HTN - Hypertension (SCT 91230196) Active 04442262 ROSALBA BAUGH [facility] Hyperlipidemia Active 76495379 [facility]AIN [facility]LOCK [facility] Hypothyroidism Active 41594977 KAIN WHITLOCK [facility] Impotence of organic origin Active 005620014 KAIN VENTURA [facility] Sensorineural hearing loss, bilateral Active 390152773 MIKKI FRITZ [facility] Arthritis * (ICD-9-CM 716.90) Inactive 716.90 NovSep 18, 2007 Entered By: KAIN WHITLOCK Comment: jeri barnhartatJun 2008 Entered By: KAIN WHITLOCK Comment: left knee "scrapped" in 2007 MALLORIE BURROUGHS [facility] CAD * (ICD-9-CM 414.9) Inactive 414.9 Dec 15, 2017 AS[facility] HYPERLIPIDEMIA NEC/NOS 272.4 Inactive 272.4 Dec 15 ENRIQUE [facility] HYPERTENSION NOS 401.9 Inactive 401.9 Dec 15, 2017 SO ENRIQUE AGUILERA [facility] 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 [facility]AIN WHITLOCK [facility] Hypothyroidism Inactive 244.9 Dec 15, 2017 [facility]AIN [facility]LOCK [facility] IMPAIRED FASTING GLUCOSE. Inactive 799.9 Dec 15, 2017 [facility]AIN [facility]LOCK [facility] Knee Joint replacement Status (Prosthetic or Artificial Device) Inactive V43.65 Dec 15, 2017 Jan 17, 2012 Entered By: KAIN BAI Comment: left. juancarlos ceron mo.- oct KAIN WHITLOCK [facility] Personal History of Tobacco Use Inactive V15.82 Dec 15, 2017 July 27, 2006 Entered By: KAIN WHITLOCK Comment: quit smoking in 1999 after cabg KAIN WHITLOCK [facility] Postsurgical Aortocoronary Bypass Status Inactive V45.81 Dec 15, 2017 July 27, 2006 Entered By: KAIN WHITLOCK Comment: in 1999, [facility], [place].Sep 15, 2008 Entered By: KAIN WHITLOCK Comment: [facility] september 12, [place] KAIN WHITLOCK [facility] Postsurgical Percutaneous Transluminal Coronary Angioplasty Status Inactive V45.82 Dec 15, 2017 Dec 01, 2010 Entered By: KAIN WHITLOCK Comment: /2011. dr woodward. promus drug eluting stent [facility] Sensorineural Hearing Loss * (ICD-9-CM 389.10) Inactive 389.10 Dec 15, 2017 [facility] Tinnitus * (ICD-9-CM 388.30) Inactive 388.30 Dec 15, 2017 KAIN WHITLOCK [facility] Radiology Reports: +/- 30 days of the encounter No Data Provided for This Section Pathology Reports: +/- 30 days of the encounter No Data Provided for This Section Encounter Notes: All associated encounter notes This section contains the clinical notes associated to the Encounter. Date/Time Encounter Note(s) Provider Source Dec 04, 2018 10:27 AM DIAGNOSTIC STUDY REPORT: LOCAL TITLE: WI-FORM LETTER DIAGNOSTIC RESULTS STANDARD TITLE: DIAGNOSTIC STUDY REPORT DATE OF NOTE: DEC 04, 2018@10:27 ENTRY DATE: DEC 04, 2018@10:28:02 AUTHOR: GOLDY GORDON EXP COSIGNER: URGENCY: STATUS: COMPLETED [facility] Fernando MuñozMateo [facility] [address] [place] [address] YORDAN HAMILTON [address], [place], [address] Nov Dear YORDAN HAMILTON, The purpose of this letter is to inform you of your test results done recently at the [facility], [place], [place]. Your lab results were reviewed. Your Glucose is elevated to 112. Reduce sugar and carbohydrate intake. GOLDY GORDON OC
--- OUTSIDE RECORDS SUMMARY | 2019-11-03 09:10 | XMS REPORT | Encounter Summary ---
Author Author Department [facility] YORDAN sanders Organization Department of [facility] Address [address] [place] [address] Phone Unavailable Care Team Providers Care Tourist Information Officer Name Role Phone HEIKEMALLORIE PCP Unavailable Insurance [...] MEDICARE SUPPLEMENT Sep 24, 2002 PLAN F [id number] [phone] YORDAN HAMILTON PATIENT MEDICARE (WNR) MEDICARE (M) PART B Mar 27, 2001 PART B [id number] [phone] YORDAN HAMILTON JR PATIENT MEDICARE (WNR) MEDICARE (M) PART A May 26, 1999 PART A [id number] [phone] YORDAN HAMILTON JR PATIENT Selected Encounter This section includes the information on record at CT for the Encounter. Date/Time Encounter Type Encounter Description Reason Provider Source Feb 01, 2019 08:49 AM Outpatient Encounter ADMIN PAT ACTIVTIES (MASNO NCT) WESLEY TEMPLETON [facility] IHE Encounter Template Text not used by CT Assessments - Encounter Diagnoses No Data Provided [...] Adverse Reactions (ADR s) on record with CT for the patient. The data comes from a ll CT treatment facilities. It does not list Allergies/ADRs that were removed or entered in error. Some allergies/ADRs may be reported in t he Immunization section. Allergen Event Date Event Type Reaction(s) Severity Source No Known Allergies [facility], VISN 15 Medications: VA dispensed (-15 months) and Non-VA Documented (Obtained Outside V A) Section Date Range: 1) prescriptions processed by a CT pharmacy in the last 15 m ont, and 2) all medications recorded in the CT medical record as "non-VA medic ations". Pharmacy terms refer to CT pharmacy's work on prescriptions. VA patient s are advised to take their medications as instructed by their health care team. The data comes from all [place] treatment facilities. Glossary of Pharmacy Terms:Active = A prescription that can be filled at the local [place] pharmacy.Active: On Hold = An active prescription that will not be filled until pharmacy resolves the issue.Active: Susp = An active prescription that is not scheduled to be filled yet.Clinic Order = A medication received during a visit to a CT clinic or emergency department (currently not available).Discontinued [...] ONCE A DAY Non-VA Documented by: ROSALBA BAUGHume nted at: ANGELA BANERJEE MELATONIN 1MG CAP/TAB [...] by: ROSALBA BAUGH nted at: MILLERELIZABETH BANERJEE SENNOSIDES 8.6MG TAB Non -VA TAKE ONE TABLET BY MOUTH THREE TIMES A DAY Non-VA Documented by: ROSALBA BAUGH nted at: ANGELA BANERJEE TEMAZEPAM 15MG CAP Non- VA TAKE 1 CAPSULE BY MOUTH AT BEDTIME N on-VA Documented by: ROSALBA BUAGH nted at: ANGELA BANERJEE TRAMADOL HCL 50MG [...] problems (conditions). The data comes from all CT treatment facilities. Problem Status Problem Code Date of Onset Date of Resolution Comm ent(s) Provider Source Bilateral tinnitus (SNOMED CT 3113988358317) Active [id number] LAMAR MARTIN [facility] Bladder cancer Active 366458879 KAIN WHITLOCK [facility] Chronic kidney disease stage 3 Active 527489982 KAIN WHITLOCK [facility] History of percutaneous transluminal coronary angioplasty Active 705524530 ROSALBA BAUGH [facility] HTN - Hypertension ([facility] [id number]) Active 42956430 AMAURIROSALBA [facility] Hyperlipidemia Active 13977242 KAIN WHITLOCK [facility] Hypothyroidism Active 68126929 [facility]AIN WHITLOCK [facility] Impotence of organic origin Active 036196950 FR KAIN CAT [facility] Sensorineural hearing loss, bilateral Active 471033807 MIKKI FRITZ [facility] Arthritis * (ICD-9-CM 716.90) Inactive 716.90 NovSep 18, 2007 Entered By: KAIN WHITLOCK Comment: knees bilatSep 15, 2008 Entered By: KAIN WHITLOCK Comment: left knee "scrapped" in 2007 MALLORIE BURROUGHS [facility] CAD * (ICD-9-CM 414.9) Inactive 414.9 Dec 15, 2017 ASK DEVEN SERRANO [facility] HYPERLIPIDEMIA NEC/NOS 272.4 Inactive 272.4 Dec 15 ENRIQUE SMALLWOOD [facility] HYPERTENSION NOS 401.9 Inactive 401.9 Dec 15, 2017 SO WILLYENRIQUE [facility] 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 KAIN WHITLOCK [facility] Hypothyroidism Inactive 244.9 Dec 15, 2017 KAIN WHITLOCK [facility] IMPAIRED FASTING GLUCOSE. Inactive 799.9 Dec 15, 2017 KAIN WHITLOCK [facility] Knee Joint replacement Status (Prosthetic or Artificial Device) Inactive V43.65 Dec 15, 2017 Jan 17, 2012 Entered By: KAIN BAI Comment: left. juancarlos ceron mo.- oct KAIN WHITLOCK [facility] Personal History of Tobacco Use Inactive V15.82 Dec 15, 2017 July 27, 2006 Entered By: KAIN WHITLOCK Comment: quit smoking in yr 1999 after cabg [facility]AIN WHITLOCK [facility] Postsurgical Aortocoronary Bypass Status Inactive V45.81 Dec 15, 2017 July 27, 2006 Entered By: KAIN WHITLOCK Comment: in 1999, [facility], [place], [place].Sep 15, 2008 Entered By: KAIN WHITLOCK Comment: [facility] sept[place] 12, [place]. KAIN WHITLOCK [facility] Postsurgical Percutaneous Transluminal Coronary Angioplasty Status Inactive V45.82 Dec 15, 2017 Dec 01, 2010 Entered By: KAIN WHITLOCK Comment: /2011. dr woodward. promus drug eluting stent KAIN WHITLOCK [facility] Sensorineural Hearing Loss * (ICD-9-CM 389.10) Inactive 389.10 Dec 15, 2017 KAIN WHITLOCK [facility] Tinnitus * (ICD-9-CM 388.30) Inactive 388.30 Dec 15, 2017 KAIN WHITLOCK [facility] Radiology Reports: +/- 30 days of the encounter No Data Provided for This Section Pathology Reports: +/- 30 days of the encounter No Data Provided for This Section Encounter Notes: All associated encounter notes This section contains the clinical notes associated to the Encounter. Date/Time Encounter Note(s) Provider Source Feb 01, 2019 08:49 AM AUDIOLOGY NOTE: LOCAL TITLE: [place]-AUDIOLOGY/ESTABLISHED STANDARD TITLE: AUDIOLOGY NOTE DATE OF NOTE: FEB 01, 2019@08:49 ENTRY DATE: FEB 01, 2019@08:49:16 AUTHOR: JORGE LUIS DAVIS EXP COSIGNER: LAMAR MARTIN URGENCY: STATUS: COMPLETED Ordered batteries, domes and wax filters. /evelyne/ JORGE LUIS DAVIS HEALTH HOT STONE SETTER Signed: 02/01/2019 08:49 /evelyne/ LAMAR Frausto OPTOMETRIST/PRACTICE OWNER Cosigned: 02/01/2019 09:03 JORGE LUIS DAVIS [facility]
--- OUTSIDE RECORDS SUMMARY | 2019-11-03 09:10 | XMS REPORT | Encounter Summary ---
Author Author Department [facility] YORDAN sanders Organization Department [facility] Address [address] [place] [address] Phone Unavailable Care Team Providers Care Fast Food Attendant Name Role Phone HEIKE MALLORIE PCP Unavailable [...] MEDICARE SUPPLEMENT Sep 24, 2002 PLAN F [id number] [phone] YORDAN HAMILTON PATIENT MEDICARE (WNR) MEDICARE (M) PART B Mar 27, 2001 PART B [id number] [phone] YORDAN HAMILTON JR PATIENT MEDICARE (WNR) MEDICARE (M) PART A May 26, 1999 PART A [id number] [id number] [phone] YORDAN HAMILTON JR PATIENT Selected Encounter This section includes the information on record at [place] for the Encounter. Date/Time Encounter Type Encounter Description Reason Provider Source Apr 12, 2019 08:21 AM Outpatient Encounter ADMIN PAT ACTIVTIES (MASNO NCT) WESLEY TEMPLETON [facility] IHE Encounter Template Text not used by [place] Assessments - Encounter Diagnoses No Data Provided for This Section Plan of Treatment: Future Appointments (+ 6 months) and Future Tests (+/- 45 day s) The Plan of Treatment section includes future care activities for the patient fr om all [place] treatment facilities. This section includes future appointments and fu ture orders which are active, pending or scheduled. Future Appointments This section includes appointments that were scheduled t o occur 6 months from the date of the Encounter, up to a maximum of 20 appointme nts. The data comes from all [facility] facilities. Appointment Date/Time Appointment Type [...] patient. The data comes from a ll [place] treatment facilities. It does not list Allergies/ADRs that were removed or entered in error. Some allergies/ADRs may be reported in t he Immunization section. Allergen Event Date Event Type Reaction(s) Severity Source No Known Allergies [facility], [facility] 15 Medications: VA dispensed (-15 months) and Non-VA Documented (Obtained Outside A) Section Date Range: 1) prescriptions processed by a [place] pharmacy in the last 15 m [facility], and 2) all medications recorded in the [place] medical record as "non-VA medic ations". Pharmacy terms refer to [place] pharmacy's work on prescriptions. [place] patient s are advised to take their medications as instructed by their health care team. The data comes from all [place] treatment facilities. Glossary of Pharmacy Terms:Active = A prescription that can be filled at the local [place] pharmacy.Active: On Hold = An active prescription that will not be filled until pharmacy resolves the issue.Active: Susp = An active prescription that is not scheduled to be filled yet.Clinic Order = A medication received during a visit to a [place] clinic or emergency department (currently not available).Discontinued [...] by: ROSALBA BAUGHume nted at: ANGELA BANERJEE CLOPIDOGREL BISULFATE 75MG TAB Non-VA TAKE ONE TABLET BY MOUTH ONCE A DAY Non-VA Documented by: ROSALBA BAUGH nted at: ANGELA BANERJEE DILTIAZEM (24HR DOSING) CAP,SA Non-VA TAKE 90 BY MOUTH EVERY MORNING Non-VA Documented by: ROSALBA BAUGH Docume nted at: ANGELA BANERJEE FISH OIL 1000MG [...] ent(s) Provider Source Bilateral tinnitus (SNOMED CT 1442761289244) Active 2979548377985 LAMAR MARTIN [facility] Bladder cancer Active 342399483 KAIN WHITLOCK [facility] Chronic kidney disease stage 3 Active 918418667 KAIN WHITLOCK [facility] History of percutaneous transluminal coronary angioplasty Active 383062025 AMAURIROSALBA [facility] HTN - Hypertension (SCT 88373469) Active 54404765 CATASAUQUAROSALBA [facility] Hyperlipidemia Active 96947616 KAIN WHITLOCK [facility] Hypothyroidism Active 51414008 KAIN WHITLOCK [facility] Impotence of organic origin Active 638451778 KAIN VENTURA [facility] Sensorineural hearing loss, bilateral Active 577030478 MIKKI FRITZ [facility] Arthritis * (ICD-9-CM 716.90) Inactive 716.90 NovSep 18, 2007 Entered By: KAIN WHITLOCK Comment: knees bilatSep 15, 2008 Entered By: KAIN WHITLOCK Comment: left knee "scrapped" in 2007 MALLORIE BURROUGHS [facility] CAD * (ICD-9-CM 414.9) Inactive 414.9 Dec 15, 2017 ASK DEVEN SERRANO [facility] HYPERLIPIDEMIA NEC/NOS 272.4 Inactive 272.4 Dec 15 ENRIQUE SMALLWOOD [facility] HYPERTENSION NOS 401.9 Inactive 401.9 Dec 15, 2017 SO ENRIQUE AGUILERA [facility] 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 KAIN WHITLOCK [facility] Hypothyroidism Inactive 244.9 Dec 15, 2017 KAIN WHITLOCK [facility] IMPAIRED FASTING GLUCOSE. Inactive 799.9 Dec 15, 2017 KAIN WHITLOCK [facility] Knee Joint replacement Status (Prosthetic or Artificial Device) Inactive V43.65 Dec 15, 2017 Jan 17, 2012 Entered By: KAIN BAI Comment: left. juancarlos ceron mo.- oct KAIN WHITLOCK [facility] Personal History of Tobacco Use Inactive V15.82 Dec 15, 2017 July 27, 2006 Entered By: KAIN WHITLOCK Comment: quit smoking in 1999 after cabg KAIN WHITLOCK [facility] Postsurgical Aortocoronary Bypass Status Inactive V45.81 Dec 15, 2017 July 27, 2006 Entered By: KAIN WHITLOCK Comment: [facility] [place], [place]Sep 15, 2008 Entered By: KAIN WHITLOCK Comment: [facility] september 12, [place] KAIN WHITLOCK [facility] Postsurgical Percutaneous Transluminal Coronary Angioplasty Status Inactive V45.82 Dec 15, 2017 Dec 01, 2010 Entered By: KAIN WHITLOCK Comment: /2011. dr woodward. promus drug eluting stent KAIN WHITLOCK [facility] Sensorineural Hearing Loss * (ICD-9-CM 389.10) Inactive 389.10 Dec 15, 2017 KAIN WHITLOCK [facility] Tinnitus * (ICD-9-CM 388.30) Inactive 388.30 Dec 15, 2017 KAIN WHITLOCK [facility] Radiology Reports: +/- 30 days of the encounter No Data Provided for This Section Pathology Reports: +/- 30 days of the encounter No Data Provided for This Section Encounter Notes: All associated encounter notes This section contains the clinical notes associated to the Encounter. Date/Time Encounter Note(s) Provider Source Apr 12, 2019 08:21 AM AUDIOLOGY NOTE: LOCAL TITLE: [place]-AUDIOLOGY/ESTABLISHED STANDARD TITLE: AUDIOLOGY NOTE DATE OF NOTE: APR 12, 2019@08:21 ENTRY DATE: APR 12, 2019@08:22:04 AUTHOR: JORGE LUIS DAVIS EXP COSIGNER: LAMAR MARTIN URGENCY: STATUS: COMPLETED [place]-AUDIOLOGY/ESTABLISHED Has ADDENDA S: Hearing aids received from in mail. 0: Hearing aids cleaned and checked. A: [ ] No problem(s) found with hearing aid(s). [x] Problems found with hearing aids: [ ] Hearing aid(s) returned to . [ ] Hearing aid(s) repaired in house. [x] Hearing aids sent out for repair. Intermittent, weak. Mailed to [x] licensing court magistrate [ ] [facility]. P: [ ] Will contact after hearing aid(s) are received back from repair. [x] Mail hearing aids to after repair. [ ] scheduled for return visit. [ ] Return to clinic if additional follow-up is needed. 2xS rcvr; [facility] /evelyne/ JORGE LUIS DAVIS HEALTH TRAVEL PROFESSIONAL Signed: 04/12/2019 08:24 /evelyne/ LAMAR Frausto SERVICE DESK ASSOCIATE Cosigned: 04/12/2019 08:30 04/17/2019 ADDENDUM STATUS: COMPLETED Gonzalez's rcvd - elect, housing and rcvr repl. Prog melva. Mailed gonzalez's to vet. /evelyne/ JORGE LUIS DAVIS HEALTH TRAVEL PROFESSIONAL Signed: 04/17/2019 13:40 /evelyne/ LAMAR Frausto SERVICE DESK ASSOCIATE Cosigned: 04/17/2019 16:24 JORGE LUIS DAVIS [facility]
--- OUTSIDE RECORDS SUMMARY | 2019-11-03 09:12 | XMS REPORT | Encounter Summary ---
Author Author Department [employer] YORDAN sanders Organization Department of [facility] Address [address] [place] [address] Phone Unavailable Care Team Providers Care Interactive Developer Name Role Phone MALLORIE BURROUGHS PCP Unavailable [...] MEDICARE SUPPLEMENT Sep 24, 2002 PLAN F [id number] [phone] YORDAN HAMILTON PATIENT MEDICARE (WNR) MEDICARE (M) PART B Mar 27, 2001 PART B [id number] [phone] YORDAN HAMILTON JR PATIENT MEDICARE (WNR) MEDICARE (M) PART A May 26, 1999 PART A [id number] YORDAN HAMILTON JR PATIENT Selected Encounter This section includes the information on record at [place] for the Encounter. Date/Time Encounter Type Encounter Description Reason Provider Source Dec 03, 2018 09:00 AM OFFICE/OUTPATIENT VISIT EST PRIMARY CARE/MEDI CINE ROSALBA BAUGH [facility] I[facility] Encounter Template Text not used [...] Range Comment Dec 03, 2018 09:20 AM [facility] CBC & DIFF Specimen Type: BLOOD Comment: [...] % 11.8-15.1 Dec 03, 2018 09:20 AM [facility] COMPREHENSIVE METABOLIC PA CARL Specimen Type: PLASMA [...] EGFR 49.5 Dec 03, 2018 09:20 AM [facility] LIPID PROFILE(HDL,TRIG,CHO L,LDL) Specimen Type: PLASMA No [...] Signs: All taken on the encounter date This section contains inpatient and outpatient Vital Signs collected on the date of the Encounter. Date/Time Temperature Pulse Blood Pressure Respiratory Rate SP02 Pa in Height Weight Body Mass Index Source Dec 03, 2018 09:08 AM 97.8 F 70 /min 123/70 mm[Hg] 18 /min 96 % 0 68 in 200.3 lb 31 [facility] Dec 03, 2018 09:05 AM 0 [facility] Immunizations: All administered on the encounter date No Data Provided for This Section Social History: Smoking Status (Most current) and Tobacco Use (All prior to enco unter date) This section includes the most current, and the historical, smoking and tobacco- related health factors from the [place] facility where the Encounter took place. Current Smoking Status This section includes the most current smoking, or tobacco -related health factor, from the [place] facility where the Encounter took place. Date/Time Current Smoking Status Comment Facility Sep 12, 2018 09:38 AM VA-TOBACCO NEVER USED [facility] Tobacco Use History This section includes a history of the smoking, or tobacco -related health factors, that were collected on or before the date of the Encoun ter. The data comes from the [place] facility where the Encounter took place. Date/Time Smoking Status/Tobacco Use Comment [facility] Jul 18, 2016 11:05 AM NON-TOBACCO USER [facility] Jan 21, 2015 04:01 PM CURRENT NON-SMOKER [facility] Jan 21, 2015 04:01 PM LIFETIME NON-TOBACCO USER [facility] Jan 03, 2014 10:30 AM CURRENT NON-SMOKER [facility] Jan 03, 2014 10:30 AM LIFETIME NON-TOBACCO USER [facility] Jan 14, 2013 10:29 AM CURRENT NON-SMOKER [facility] Jan 14, 2013 10:29 AM LIFETIME NON-TOBACCO USER [facility] Jan 17, 2012 09:48 AM CURRENT NON-SMOKER [facility] Jan 17, 2012 09:48 AM LIFETIME NON-TOBACCO USER [facility] Dec 01, 2010 10:53 AM CURRENT NON-SMOKER [facility] Dec 01, 2010 10:53 AM LIFETIME NON-TOBACCO USER [facility] Dec 01, 2010 10:53 AM NON-TOBACCO USER [facility] Nov 17, 2009 09:01 AM CURRENT NON-SMOKER [...] patient. The data comes from a ll [place] treatment facilities. It does not list Allergies/ADRs [...] VA pharmacy in the last 15 m [facility], and 2) all medications recorded in the [place] medical record as "non-VA medic ations". Pharmacy terms refer to VA pharmacy's work on prescriptions. VA patient s are advised to take their medications as instructed by their health care team. The data comes from all [place] treatment facilities. Glossary of Pharmacy Terms:Active = A prescription that can be filled at the local [place] pharmacy.Active: On Hold = An active prescription that will not be filled until pharmacy resolves the issue.Active: Susp = An active prescription that is not scheduled to be filled yet.Clinic Order = A medication received during a visit to a [place] clinic or emergency department (currently not available).Discontinued [...] may be a prescription from either the [place] or other providers that was filled outside [...] A Documented by: ROSALBA BAUGH nted at: [facility] CALCIUM CITRATE 315MG/VITAMIN D 200UNT TAB Non-VA TAKE ONE TABLET BY MOUTH TWO TIMES A DAY Non-VA Documented by: ROSALBA [facility]AUGH [facility] CLOPIDOGREL BISULFATE 75MG TAB Non-VA TAKE ONE TABLET BY MOUTH ONCE A DAY Non-VA Documented by: ROSALBA BAUGH nted [facility] DILTIAZEM (24HR DOSING) CAP,SA Non-VA TAKE 90 BY MOUTH EVERY MORNING Non-VA Documented by: ROSALBA BAUGH nted at: [facility] FISH OIL 1000MG (500MG DHA/EPA) CAP,ORAL Non-VA TAKE 1 CAPSULE BY MOUTH TWO TIMES A DAY Non-VA Documented by: ROSALBA BAUGH nted at[facility] FUROSEMIDE 40MG TAB Non- VA TAKE ONE TABLET BY MOUTH EVERY MORNING NEEDED Non-VA Docume nted by: ROSALBA BAUGH nted at: [facility] GEMFIBROZIL 600MG TAB No n-VA TAKE ONE TABLET BY MOUTH TWO TIMES A DAY BEFORE MEALS Non-VA Documented by: ROSALBA BAUGH nted at: [facility] LEVOTHYROXINE NA 0.05MG TAB (SYNTHROID) Non-VA TAKE ONE TABLET BY MOUTH EVERY MORNING BEFORE MEAL Non-VA Documented by: ROSALBA BAUGH nted at: [facility] LISINOPRIL 5MG TAB Non- VA TAKE ONE-HALF TABLET BY MOUTH EVERY MORNING Non-VA Documented by: ROSALBA BAUGH nted at: [facility] LORATADINE 10MG TAB Non- VA TAKE ONE TABLET BY MOUTH QDAY PRN Non-VA Documented by: ROSALBA BAUGH nted at: [facility] MAGNESIUM OXIDE 400MG TAB Non-VA TAKE ONE TABLET BY MOUTH ONCE A DAY Non-VA Documented by: ROSALBA BAUGH nted at: [facility] MELATONIN 1MG CAP/TAB No n-VA TAKE 10 CAP/TABS BY MOUTH AT BEDTIME Non-VA Documented by: ROSALBA BAUGH nted at: [facility] MELOXICAM 15MG TAB Non- VA TAKE ONE [...] TAKE ONE TABLET BY MOUTH HS PRN N on-VA Documented by: ROSALBA BAUGH nted at: [facility] Problems (Conditions): All historical and current Section Date Range: From patient's date of to the date document was create d. This section includes a list of Problems (Conditions) know n to [facility] for the patient. It includes both active and inacti ve problems (conditions). The data comes from all [place] treatment facilities. Problem Status Problem Code Date of Onset Date of Resolution Comm ent(s) Provider Source Bilateral tinnitus (SNOMED CT 6800174905350) Active [id number] [facility] Bladder cancer Active 065946210 KAIN WHITLOCK [facility] Chronic kidney disease stage 3 Active 698547594 [facility]AIN [facility]ITLOCK [facility] History of percutaneous transluminal coronary angioplasty Active 087427206 [facility] HTN - Hypertension (SCT 33723833) Active 93505389 ROSALBA BAUGH [facility] Hyperlipidemia Active 53480976 KAIN WHITLOCK [facility] Hypothyroidism Active 30588777 [facility]LOCK [facility] Impotence of organic origin Active 386155181 [facility]AIN [facility]URA [facility] Sensorineural hearing loss, bilateral Active [id number] MIKKI FRITZ [facility] Arthritis * (ICD-9-CM 716.90) Inactive 716.90 NovSep 18, 2007 Entered By: KAIN WHITLOCK Comment: knees bilatSep 15, 2008 Entered By: KAIN WHITLOCK Comment: left knee "scrapped" in 2007 MALLORIE BURROUGHS [facility] CAD * (ICD-9-CM 414.9) Inactive 414.9 Dec 15, 2017 ASK DEVEN SERRANO [facility] HYPERLIPIDEMIA NEC/NOS 272.4 Inactive 272.4 Dec 15 ENRIQUE SMALLWOOD [facility] HYPERTENSION NOS 401.9 Inactive 401.9 Dec 15, 2017 SO WILLYENRIQUE 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 KAIN WHITLOCK [facility] Hypothyroidism Inactive 244.9 Dec 15, 2017 KAIN WHITLOCK [facility] IMPAIRED FASTING GLUCOSE. Inactive 799.9 Dec 15, 2017 KAIN WHITLOCK [facility] Knee Joint replacement Status (Prosthetic or Artificial Device) Inactive V43.65 Dec 15, 2017 Jan 17, 2012 Entered By: KAIN BAI Comment: left. juancarlos ceorn mo.- oct KAIN WHITLOCK [facility] Personal History of Tobacco Use Inactive V15.82 Dec 15, 2017 July 27, 2006 Entered By: KAIN WHITLOCK Comment: quit smoking in 1999 after cabg [facility]AIN WHITLOCK [facility] Postsurgical Aortocoronary Bypass Status Inactive V45.81 Dec 15, 2017 July 27, 2006 Entered By: KAIN WHITLOCK Comment: [facility] [place].Sep 15, 2008 Entered By: KAIN WHITLOCK Comment: ptca september 12, [facility]. KAIN WHITLOCK [facility] Postsurgical Percutaneous Transluminal Coronary Angioplasty Status Inactive V45.82 Dec 15, 2017 Dec 01, 2010 Entered By: KAIN WHITLOCK Comment: /2011. dr woodward. promus drug eluting stent AKIN WHITLOCK [facility] Sensorineural Hearing Loss * (ICD-9-CM 389.10) Inactive 389.10 Dec 15, 2017 KAIN WHITLOCK [facility] Tinnitus * (ICD-9-CM 388.30) Inactive 388.30 Dec 15, 2017 [facility] Radiology Reports: +/- 30 days of the encounter No Data Provided for This Section Pathology Reports: +/- 30 days of the encounter No Data Provided for This Section Encounter Notes: All associated encounter notes This section contains the clinical notes associated to the Encounter. Date/Time Encounter Note(s) Provider Source Dec 03, 2018 09:29 AM MEDICATION MGT NOTE: LOCAL TITLE: WI-MEDICATION RECONCILIATION (BP,O) STANDARD TITLE: MEDICATION MGT NOTE DATE OF NOTE: DEC 03, 2018@09:29 ENTRY DATE: DEC 03, 2018@09:30 AUTHOR: ROSALBA BAUGH: URGENCY: STATUS: COMPLETED MEDICATION RECONCILIATION Allergies: Patient has answered NKA Allergies reviewed, edited in CPRS as appropriate and confirmed by patient: Yes Active Outpatient Medications (including Supplies): Non-VA Medications Status = 1) Non-VA ASPIRIN 81MG EC TAB 81MG MOUTH daily ACTIVE 2) Non-VA BUDESONIDE 80/FORMOTER 4.5MCG 120D INH 2 PUFFS ACTIVE ORAL INHALATION THREE TIMES A DAY NEEDED 3) Non-VA CALCIUM CITRATE 315MG/VIT D 200 UNT TAB 1 ACTIVE TABLET MOUTH TWO TIMES A DAY 4) Non-VA CLOPIDOGREL BISULFATE 75MG TAB 75MG MOUTH ONCE ACTIVE A DAY 5) Non-VA DILTIAZEM (24HR DOSING) CAP,SA 90 MOUTH EVERY ACTIVE MORNING 6) Non-VA FISH OIL 1000MG (500MG DHA/EPA) CAP 1000MG ACTIVE MOUTH TWO TIMES A DAY 7) Non-VA FUROSEMIDE 40MG TAB 40MG MOUTH EVERY MORNING ACTIVE NEEDED 8) Non-VA GEMFIBROZIL 600MG TAB 600MG MOUTH TWO TIMES A ACTIVE DAY BEFORE MEALS 9) Non-VA LEVOTHYROXINE NA (SYNTHROID) 0.05MG TAB 0.05MG ACTIVE MOUTH EVERY MORNING BEFORE MEAL 10) Non-VA LISINOPRIL 5MG TAB 2.5MG MOUTH EVERY MORNING ACTIVE 11) Non-VA LORATADINE 10MG TAB 10MG MOUTH ONCE A DAY ACTIVE NEEDED 12) Non-VA MAGNESIUM OXIDE 400MG TAB 400MG MOUTH ONCE A ACTIVE DAY 13) Non-VA MELATONIN 1MG CAP/TAB 10MG MOUTH AT BEDTIME ACTIVE 14) Non-VA MELOXICAM 15MG TAB 15MG MOUTH ONCE A DAY ACTIVE NEEDED 15) Non-VA POTASSIUM CL 20MEQ SA TAB (DISPERSIBLE) 10MEQ ACTIVE MOUTH EVERY MORNING NEEDED 16) Non-VA ROSUVASTATIN CA 40MG TAB 20MG MOUTH AT BEDTIME ACTIVE 17) Non-VA SENNOSIDES 8.6MG TAB 8.6MG MOUTH THREE TIMES A ACTIVE DAY 18) Non-VA TEMAZEPAM 15MG CAP 15MG MOUTH AT BEDTIME ACTIVE 19) Non-VA TRAMADOL HCL 50MG TAB 50MG MOUTH HS NEEDED ACTIVE Compared newly ordered medications and medication changes to active medications and non-VA medications, and then reviewed medications with patient and/or caregiver. All discrepancies noted and reconciled. Patients, or caregivers, was provided with reconciled medications list and advised to provide to all non VA providers. Potential adverse reactions of new medications were discussed with the patient. Patient/family/caregiver educated and evaluated for understanding on Medications. The list was reviewed with and given to the patient/family/caregiver who were also educated on importance of sharing medication list with all VA providers and non-VA providers. For questions, please call your team nurse. Pertinent lab reviewed: N/A. Level of Understanding: Unable to assess Comments: lab pending /evelyne/ ROSALBA BAUGH Signed: 12/03/2018 09:30 ROSALBA BAUGH Dec 03, 2018 09:26 AM NURSE PRACTITIONER NOTE: LOCAL TITLE: WI-REPRESENTATIVE GOVERNMENT RELATIONS/NURSE/CBOC STANDARD TITLE: NURSE PRACTITIONER NOTE DATE OF NOTE: DEC 03, 2018@09:26 ENTRY DATE: DEC 03, 2018@09:26:24 AUTHOR: ROSALBA BAUGH EXP COSIGNER: URGENCY: STATUS: COMPLETED WI-REPRESENTATIVE GOVERNMENT RELATIONS/NURSE/CBOC Has ADDENDA cc:annual HPI:Chief concern is accomplishing annual. He uses non-VA PCP Dr Silverman. Past Medical/Surgical History: Computerized Problem List is the source for the followin. Bilateral tinnitus (SNOMED CT [id number]) 11/04/15 LAMAR MARTIN 2. Impotence of organic origin 01/14/13 KAIN WHITLOCK 3. Hyperlipidemia 01/23/15 KAIN WHITLOCK 4. Hypothyroidism 01/23/15 KAIN WHITLOCK 5. Sensorineural hearing loss, bilateral 03/02/15 RICOEN-, 6. Bladder cancer 07/18/16 KAIN WHITLOCK 7. Chronic kidney disease stage 3 07/19/16 KAIN WHITLOCK 8. HTN - Hypertension ([facility] [id number]) 12/15/17 ROSALBA BAUGH 9. History of percutaneous transluminal coronary 12/15/17 ROSALBA BAUGH angioplasty Preventative Services: Diabetes NA ROS: 10 point ROS neg x as noted above. Medication reviewed and updated as applicable. Active Outpatient Medications (including Supplies): Active Non-VA Medications Status 1) Non-VA ASPIRIN 81MG EC TAB 81MG EVGENY TH daily ACTIVE 2) Non-VA BUDESONIDE 80/FORMOTER 4.5MC G 120D INH 2 PUFFS ACTIVE ORAL INHALATION THREE TIMES A DAY NEEDED 3) Non-VA CALCIUM CITRATE 315MG/VIT D 200 UNT TAB 1 ACTIVE TABLET MOUTH TWO TIMES A DAY 4) Non-VA CLOPIDOGREL BISULFATE 75MG T AB 75MG MOUTH ONCE ACTIVE A DAY 5) Non-VA DILTIAZEM (24HR DOSING) CAP, SA 90 MOUTH EVERY ACTIVE MORNING 6) Non-VA FISH OIL 1000MG (500MG DHA/E PA) CAP 1000MG ACTIVE MOUTH TWO TIMES A DAY 7) Non-VA FUROSEMIDE 40MG TAB 40MG EVGENY TH EVERY MORNING ACTIVE NEEDED 8) Non-VA GEMFIBROZIL 600MG TAB 600MG MOUTH TWO TIMES A ACTIVE DAY BEFORE MEALS 9) Non-VA LEVOTHYROXINE NA (SYNTHROID) 0.05MG TAB 0.05MG ACTIVE MOUTH EVERY MORNING BEFORE MEAL 10) Non-VA LISINOPRIL 5MG TAB 2.5MG EVGENY TH EVERY MORNING ACTIVE 11) Non-VA LORATADINE 10MG TAB 10MG EVGENY TH ONCE A DAY ACTIVE NEEDED 12) Non-VA MAGNESIUM OXIDE 400MG TAB 40 0MG MOUTH ONCE A ACTIVE DAY 13) Non-VA MELATONIN 1MG CAP/TAB 10MG M OUTH AT BEDTIME ACTIVE 14) Non-VA MELOXICAM 15MG TAB 15MG MOUT H ONCE A DAY ACTIVE NEEDED 15) Non-VA POTASSIUM CL 20MEQ SA TAB (D ISPERSIBLE) 10MEQ ACTIVE MOUTH EVERY MORNING NEEDED 16) Non-VA ROSUVASTATIN CA 40MG TAB 20M G MOUTH AT BEDTIME ACTIVE 17) Non-VA SENNOSIDES 8.6MG TAB 8.6MG M OUTH THREE TIMES A ACTIVE DAY 18) Non-VA TEMAZEPAM 15MG CAP 15MG MOUT H AT BEDTIME ACTIVE 19) Non-VA TRAMADOL HCL 50MG TAB 50MG M OUTH HS NEEDED ACTIVE Vital Signs 123/70 (12/03/2018 09:08) 70 ( 09:08) 97.8 F [36.6 C] (12/03/2018 09:08) 96 (Nov@09:08:05) Physical Exam Gen: alert, oriented x 3. NAD HEENT: PERRL. EOMI. tongue midline. TM normal. MM moist and pink. pharynx normal Neck: no JVD or TM. no LAD CV: RRR s murmur. PMI normal Resp: CTA bilat. no rales, rhonchi. Abd: S/NT/ND. BS x 4 quadrants Ext: no cyanosis, clubbing, pedal edema Neuro: CN II-XII grossly intact. no extremity weakness. sensation intact. Skin: warm, dry intact Lab:pending A/P 1. CAD 2. HTN 3. Hyperlipidemia 4. Hypothyroidism lab pending WI-RTC PROVIDER CLINIC: Return to Clinic. /evelyne/ ROSALBA BAUGH Signed: 12/03/2018 09:29 12/04/2018 ADDENDUM STATUS: COMPLETED Labs reviewed Glucose 112, reduce sugar intake. /erasmo BAUGH Signed: 12/04/2018 07:58 Receipt Acknowledged By: 12/04/2018 10:30 /evelyne/ ROSALBA RUIZ RN [facility] Dec 03, 2018 08:55 AM NURSING OUTPATIENT NOTE: LOCAL TITLE: WI-NURSE/CBOC STANDARD TITLE: NURSING OUTPATIENT NOTE DATE OF NOTE: DEC 03, 2018@08:55 ENTRY DATE: DEC 03, 2018@08:55:51 AUTHOR: EDGAR GOMEZ COSIGNER: URGENCY: STATUS: COMPLETED Reason for appointment: PCP Appointment Reason for appointment: Other: annual Is the patient diabetic? No - patient is not a diabetic What is your goal for today's visit? *Required Is there anything in your life that worries or stresses you that we may assist you with today? *Required No Are you registered for [employer])? No - Are you interested in registering? No If 'yes' please hand [employer] brochure. WI-FOOT EXAM (PAVE): Foot Assessment The foot exam was not completed. VISN 15-INFLUENZA IMMUNIZATION : [id number] INFLUENZA IMMUNIZATION V1.0 Vaccine not given: Patient refused influenza vaccine. Patient provided CDC Vaccination Information Sheet handout and educated on the importance of receiving a flu vaccination. http://www.cdc.gov/vaccines/hcp/vis/vis-statements/flu.pdf Other: Reason for refusal: ref Homelessness/Food Insecurity Screen: In the past 2 months, have you been living in stable housing that you own, rent, or stay in as part of a household? Yes - Living in stable housing. Are you worried or concerned that in the next 2 months you may NOT have stable housing that you own, rent, or stay in as part of a household? No - Not worried about housing near future In the past three months did you ever run out of food and you were not able to access more food or have the money to buy more food? No - No Food shortage Herpes Zoster (Shingles) Vaccine: The patient declines to receive the herpes zoster vaccine. WI-DIAG RESULT (PERSON OR PHONE): Results will be mailed or phoned to patient when available. WI-LEARNING ASSESSMENT: Patient Learning Assessment Learning Needs Assessment ...Patient Readiness to Learn (Check if individual ready to learn): ...Patient is ready to learn. Will Patient Have Difficulty Understanding Information: ...No Educational Needs: Do you need further information with: Safe & effective use of medications? ...No Safe & effective use of equipment? (Home O2, prosthetics, Rehab Medicine) ...No Potential food/drug interaction? ...No Modified diet? (If referral -- to Dietitian) ...No Rehabilitation techniques or help with independent function? (If referral -- to Rehab Medicine) ...No Patient taught on rehabilitation techniques today. Community resources (If referral -- to [facility]/) ...No When/how to obtain further treatment? ...Yes Patient responsibilities in the treatment process? (Booklet) ...No Hygiene? (If taught - Handout/PHE given that includes grooming, bathing, oral health, hair and nail care and use of toilet.) ...No Information about disease process? (If taught - appropriate handout given) ...No Advanced directives? (Booklet) ...No WI-ACOVE [place] ADL: ACOVE [place] INDEX ADL: [place] Index of [place] in Activities of Daily Living Activities Points (1 or 0) [place] (1 Point) NO supervision, direction or personal assistance Dependence (0 Points) WITH supervision, direction, personal assistance or total care BATHING 1 Points (1 POINT) Bathes self completely or needs help in bathing only a single part of the body such as the back, genital area or disabled extremity (0 POINTS) Need help with bathing more than one part of the body, getting in or out of the tub or shower. Requires total bathing DRESSING 1 Points (1 POINT) Get clothes from closets and drawers and puts on clothes and outer garments complete with fasteners. May have help tying shoes. (0 POINTS) Needs help with dressing self or needs to be completely dressed. TOILETING 1 Points (1 POINT) Goes to toilet, gets on and off, arranges clothes, cleans genital area without help. (0 POINTS) Needs help transferring to the toilet, cleaning self or uses bedpan or commode. TRANSFERRING 1 Points (1 POINT) Moves in and out of bed or chair unassisted. Mechanical transfer aids are acceptable (0 POINTS) Needs help in moving from bed to chair or requires a complete transfer. CONTINENCE 1 Points (1 POINT) Exercises complete self control over urination and defecation. (0 POINTS) Is partially or totally incontinent of FEEDING 1 Points (1 POINT) Gets food from plate into mouth without help. Preparation of food may be done by another person. (0 POINTS) Needs partial or total help with feeding or requires parenteral feeding. 6 Total Points Score of 6 = High, Patient is independent. Score of 0 = Low, patient is very dependent. Slightly adapted. Lorelei Epps., Madi TD, Rakan, HR, et al. (1970) progress in the development of the index of ADL. Gerontologist 10:20-30. Copyright The [employer] of [place]. Reproduced by permission of the publisher. No issues identified at this time. WI-PAIN: Pain Reassessment-Patient's updated pain score after intervention is: PAIN Score 0 Pain Documentation: Pain level 3 or less. WI-FALL RISK OP: COLON FALL SCALE The Colon Fall scale was performed and score was 0. This is indicative of low risk of falls. History of falling in past 3 months? No Secondary diagnosis: No Ambulatory aid: None/bedrest/nurse assist Intravenous therapy/Heparin lock: No Gait/Transferring: Normal/bed rest/immobile Mental Status: Oriented to own ability/knows own limitations OTHER RISK FACTORS No history of falls and no secondary diagnosis. Patient risk for falling: Low Risk pamphlet given to patient/family Is patient at risk for falling? Patient is NOT at risk for falling Is the patient 75 years of age or older? Yes Has the patient had any falls in the past 12 months? No Tobacco Use Screening: The patient has never used tobacco. Depression Screening: PHQ-2+I9 Depression Screening Score: 0 The score on this administration is 0, which indicates a negative screen on the Depression Scale over the past two weeks. Suicide Screening Score: 0 The results of this administration indicates a NEGATIVE primary screen for Risk of Suicide over the last 2 weeks. Over the past two weeks, how often have you been bothered by the following problems? 1. Little interest or pleasure in doing things Not at all 2. Feeling down, depressed, or hopeless Not at all 3. Thoughts that you would be better off or of hurting yourself in some way Not at all Alcohol Use Screen (AUDIT-C): Alcohol Screen: SCREEN FOR ALCOHOL (AUDIT-C) An alcohol screening test (AUDIT-C) was negative (score=0). 1. How often did you have a drink containing alcohol in the past year? Never 2. How many drinks containing alcohol did you have on a typical day when you were drinking in the past year? Response not required due to responses to other questions. 3. How often did you have six or more drinks on one occasion in the past year? Response not required due to responses to other questions. /evelyne/ EDGAR GOMEZ LPN Signed: 12/03/2018 09:09 EDGAR GOMEZ OC
--- OUTSIDE RECORDS SUMMARY | 2019-11-03 09:13 | XMS REPORT ---
Author Author Department [facility] YORDAN sanders Organization Department [facility] Address [address] [place] [address] Phone Unavailable Care Team Providers Care Melter Clerk Name Role Phone HEIKE MALLORIE PCP Unavailable [...] MEDICARE SUPPLEMENT Sep 24, 2002 PLAN F [id number] [phone] YORDAN HAMILTON PATIENT MEDICARE (WNR) MEDICARE (M) PART B Mar 27, 2001 PART B [id number] YORDAN HAMILTON JR PATIENT MEDICARE (WNR) MEDICARE (M) PART A May 26, 1999 PART A [id number] YORDAN HAMILTON JR PATIENT Selected Encounter This section includes the information on record at [place] for the Encounter. Date/Time Encounter Type Encounter Description Reason Provider Source Oct 14, 2019 08:00 AM Outpatient Encounter ADMIN PAT ACTIVTIES ([facility]AS[facility] NCT) [facility] 15 IHE Encounter Template Text not used by [place] Assessments - Encounter Diagnoses No Data Provided [...] Adverse Reactions (ADR s) on record with [place] for the patient. The data comes from a ll [place] treatment facilities. It does not list Allergies/ADRs that were removed or entered in error. Some allergies/ADRs may be reported in t he Immunization section. Allergen Event Date Event Type Reaction(s) Severity Source No Known Allergies [facility], [facility] 15 Medications: VA dispensed (-15 months) and Non-VA Documented (Obtained Outside A) Section Date Range: 1) prescriptions processed by a [place] pharmacy in the last 15 m ont, and 2) all medications recorded in the [place] medical record as "non-VA medic ations". Pharmacy terms refer to [place] pharmacy's work on prescriptions. [facility] patient s are advised to take their medications as instructed by their health care team. The data comes from all [place] treatment facilities. Glossary of Pharmacy Terms:Active = A prescription that can be filled at the local [place] pharmacy.Active: On Hold = An active prescription that will not be filled until pharmacy resolves the issue.Active: Susp = An active prescription that is not scheduled to be filled yet.Clinic Order = A medication received during a visit to a [place] clinic or emergency department (currently not available).Discontinued [...] problems (conditions). The data comes from all [place] treatment facilities. Problem Status Problem Code Date of Onset Date of Resolution Comm ent(s) Provider Source Bilateral tinnitus (SNOMED CT 9351263622059) Active 3778623752201 LAMAR MARTIN [facility] Bladder cancer Active 103370319 KAIN WHITLOCK [facility] Chronic kidney disease stage 3 Active 864562424 KAIN WHITLOCK [facility] History of percutaneous transluminal coronary angioplasty Active 789575347 FRANK BAUGHT [facility] HTN - Hypertension ([facility] [id number]) Active 91268754 ELBERONROSALBA [facility] Hyperlipidemia Active 12250459 KAIN WHITLOCK [facility] Hypothyroidism Active 81700715 KAIN WHITLOCK [facility] Impotence of organic origin Active 432735791 KAIN VENTURA [facility] Sensorineural hearing loss, bilateral Active 002257362 MIKKI FRITZ [facility] Arthritis * (ICD-9-CM 716.90) Inactive 716.90 NovSep 18, 2007 Entered By: KAIN WHITLOCK Comment: knees bilatSep 15, 2008 Entered By: KAIN WHITLOCK Comment: left knee "scrapped" in 2007 MALLORIE BURROUGHS [facility] CAD * (ICD-9-CM 414.9) Inactive 414.9 Dec 15, 2017 ASK DEVEN SERRANO [facility] HYPERLIPIDEMIA NEC/NOS 272.4 Inactive 272.4 Dec 15 ENRIQUE SMALLWOOD [facility] HYPERTENSION NOS 401.9 Inactive 401.9 Dec 15, 2017 SO 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 KAIN WHITLOCK [facility] Hypothyroidism Inactive 244.9 Dec 15, 2017 KAIN WHITLOCK [facility] IMPAIRED FASTING GLUCOSE. Inactive 799.9 Dec 15, 2017 KAIN WHITLOCK [facility] Knee Joint replacement Status (Prosthetic or Artificial Device) Inactive V43.65 Dec 15, 2017 Jan 17, 2012 Entered By: KAIN BAI Comment: left. juancarlos ceron mo.- oct KAIN WHITLOCK [facility] Personal History of Tobacco Use Inactive V15.82 Dec 15, 2017 July 27, 2006 Entered By: KAIN WHITLOCK Comment: quit smoking in yr 1999 after cabg [facility] Postsurgical Aortocoronary Bypass Status Inactive V45.81 Dec 15, 2017 July 27, 2006 Entered By: KAIN WHITLOCK Comment: [place] 1999, [facility]Sep 15, 2008 Entered By: KAIN WHITLOCK Comment: [facility] sept[place] 12, [place] [facility] Postsurgical Percutaneous Transluminal Coronary Angioplasty Status Inactive V45.82 Dec 15, 2017 Dec 01, 2010 Entered By: KAIN WHITLOCK Comment: /2011. dr woodward. promus drug eluting stent KAIN WHITLOCK [facility] Sensorineural Hearing Loss * (ICD-9-CM 389.10) Inactive 389.10 Dec 15, 2017 KAIN WHITLOCK [facility] Tinnitus * (ICD-9-CM 388.30) Inactive 388.30 Dec 15, 2017 [facility] Reports: +/- 30 days of the encounter No Data Provided for This Section Pathology Reports: +/- 30 days of the encounter No Data Provided for This Section Encounter Notes: All associated encounter notes This section contains the clinical notes associated to the Encounter. Date/Time Encounter Note(s) Provider Source Oct 15, 2019 08:00 AM NONVA CONSULT: LOCAL TITLE: COMMUNITY CARE CONSULT RESULTS NOTE [place] STANDARD TITLE: NONVA CONSULT DATE OF NOTE: OCT 15, 2019@08:00 ENTRY DATE: OCT 29, 2019@15:05:06 AUTHOR: ROBERT REYNA EXP COSIGNER: URGENCY: STATUS: COMPLETED The following Non VA Care consult has been completed. See scanned document for report. NON VA Care Consult Results Other: COMMUNITY CARE-AUDIO/[facility]/10/14/2019&10/15/2019 /evelyne/ ROBERT REYNA TORQUE TESTER Signed: 10/29/2019 15:06 [facility]
--- OUTSIDE RECORDS SUMMARY | 2019-11-03 09:17 | XMS REPORT | Continuity of Care Document ---
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 05/24/2019 MEADE DO, RON L Ot Z95.5 PRESENCE OF CORONARY ANGIOPLASTY IMPLANT 06/01/2019 POALA BRUNSON MD Ot E78. 00 PURE HYPERCHOLESTEROLEMIA, UNSPECIFIED 06/01/2019 PAOLA BRUNSON MD Ot I25. 10 ATHSCL HEART DISEASE OF [place] CORONARY 06/01/2019 PAOLA BRUNSON MD, Ot I25. 2 OLD MYOCARDIAL INFARCTION 06/01/2019 PAOLA BRUNSON MD, Ot M19. 90 UNSPECIFIED OSTEOARTHRITIS, UNSPECIFIED 06/01/2019 PAOLA BRUNSON MD, Ot N18. 9 CHRONIC KIDNEY DISEASE, UNSPECIFIED 06/01/2019 PAOLA BRUNSON MD, Ot N39. 0 URINARY TRACT INFECTION, SITE NOT SPECIF 06/01/2019 PAOLA BRUNSON MD Ot N99.521 INFECTION OF INCONTINENT EXTERNAL STOMA 06/01/2019 PAOLA BRUNSON MD Ot R41. 0 DISORIENTATION, UNSPECIFIED 06/01/2019 PAOLA BRUNSON MD Ot T83.592A I/I REACT D/T INDWELLING URETERAL STENT, 06/01/2019 PAOLA BRUNSON MD Ot Y83. 8 OTH SURGICAL PROCEDURES CAUSE ABN REACT/ 06/01/2019 PAOLA BRUNSON MD Ot Z79. 4 DENTAL RESIDENT (CURRENT) USE OF INSULIN 06/01/2019 PAOLA BRUNSON MD Ot Z79. 82 ALF (CURRENT) USE OF ASPIRIN 06/01/2019 PAOLA BRUNSON MD Ot Z85. 46 PERSONAL HISTORY OF MALIGNANT NEOPLASM O 06/01/2019 PAOLA BRUNSON MD Ot Z85. 51 PERSONAL HISTORY OF MALIGNANT NEOPLASM O 06/01/2019 PAOLA BRUNSON MD Ot Z87.891 PERSONAL HISTORY OF NICOTINE DEPENDENCE 06/01/2019 PAOLA BRUNSON MD Ot Z90. 5 ACQUIRED ABSENCE OF KIDNEY 06/01/2019 PAOLA BRUNSON MD Ot Z90. 6 ACQUIRED ABSENCE OF OTHER PARTS OF URINA 06/01/2019 PAOLA BRUNSON MD Ot Z93. 3 COLOSTOMY STATUS 06/01/2019 PAOLA BRUNSON MD Ot Z95. 1 PRESENCE OF AORTOCORONARY BYPASS GRAFT 06/01/2019 PAOLA BRUNSON MD Ot E78. 00 PURE HYPERCHOLESTEROLEMIA, UNSPECIFIED 06/01/2019 PAOLA BRUNSON MD Ot I25. 10 ATHSCL HEART DISEASE OF [place] CORONARY 06/01/2019 PAOLA BRUNSON MD, Ot I25. 2 OLD MYOCARDIAL INFARCTION 06/01/2019 PAOLA BRUNSON MD, Ot M19. 90 UNSPECIFIED OSTEOARTHRITIS, UNSPECIFIED 06/01/2019 PAOLA BRUNSON MD, Ot N18. 9 CHRONIC KIDNEY DISEASE, UNSPECIFIED 06/01/2019 PAOLA BRUNSON MD, Ot N39. 0 URINARY TRACT INFECTION, SITE NOT SPECIF 06/01/2019 PAOLA BRUNSON MD, Ot N99.521 INFECTION OF INCONTINENT EXTERNAL STOMA 06/01/2019 PAOLA BRUNSON MD, Ot R41. 0 DISORIENTATION, UNSPECIFIED 06/01/2019 PAOLA BRUNSON MD, Ot T83.592A I/I REACT D/T INDWELLING URETERAL STENT, 06/01/2019 PAOLA BRUNSON MD, Ot Y83. 8 OT SURGICAL PROCEDURES CAUSE ABN REACT/ 06/01/2019 PAOLA BRUNSON MD, Ot Z79. 4 ALF (CURRENT) USE OF INSULIN 06/01/2019 PAOLA BRUNSON MD, Ot Z79. 82 ALF (CURRENT) USE OF ASPIRIN 06/01/2019 PAOLA BRUNSON MD, Ot Z85. 46 PERSONAL HISTORY OF MALIGNANT NEOPLASM O 06/01/2019 PAOLA BRUNSON MD, Ot Z85. 51 PERSONAL HISTORY OF MALIGNANT NEOPLASM O 06/01/2019 PAOLA BRUNSON MD, Ot Z87.891 PERSONAL HISTORY OF NICOTINE DEPENDENCE 06/01/2019 PAOLA BRUNSON MD, Ot Z90. 5 ACQUIRED ABSENCE OF KIDNEY 06/01/2019 PAOLA BRUNSON MD, Ot Z90. 6 ACQUIRED ABSENCE OF OTHER PARTS OF URINA 06/01/2019 PAOLA BRUNSON MD, Ot Z93. 3 COLOSTOMY STATUS 06/01/2019 PAOLA BRUNSON MD, Ot Z95. 1 PRESENCE OF AORTOCORONARY BYPASS GRAFT 06/07/2019 WESLEY WEST DO, Ot M19.011 PRIMARY OSTEOARTHRITIS, RIGHT SHOULDER 06/07/2019 WESLEY WEST DO, Ot M75.101 UNSP ROTATR-CUFF TEAR/RUPTR OF RIGHT ROBERT 06/07/2019 WESLEY WEST DO, Ot M75.31 CALCIFIC TENDINITIS OF RIGHT SHOULDER 08/20/2019 YAW SPAULDING MD Ot E78.00 PURE HYPERCHOLESTEROLEMIA, UNSPECIFIED 08/20/2019 YAW SPAULDING MD Ot I25.10 ATHSCL HEART DISEASE OF [place] CORONARY 08/20/2019 YAW SPAULDING MD Ot 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 INFARCTION 08/20/2019 YAW SPAULDING MD Ot N18.9 CHRONIC KIDNEY DISEASE, UNSPECIFIED 08/20/2019 YAW SPAULDING MD Ot N39.0 URINARY TRACT INFECTION, SITE NOT SPECIF 08/20/2019 YAW SPAULDING MD Ot R41.0 DISORIENTATION, UNSPECIFIED 08/20/2019 YAW SPAULDING MD Ot Z79.82 ALF (CURRENT) USE OF ASPIRIN 08/20/2019 YAW SPAULDING MD Ot Z85.46 PERSONAL HISTORY OF MALIGNANT NEOPLASM O 08/20/2019 YAW SPAULDING MD Ot Z85.51 PERSONAL HISTORY OF MALIGNANT NEOPLASM O 08/20/2019 YAW SPAULDING MD Ot Z87.891 PERSONAL HISTORY OF NICOTINE DEPENDENCE 08/20/2019 YAW SPAULDING MD Ot Z90.5 ACQUIRED ABSENCE OF KIDNEY 08/20/2019 YAW SPAULDING MD Ot Z95.5 PRESENCE OF CORONARY ANGIOPLASTY IMPLANT 08/23/2019 YAW SPAULDING MD Ot E78.00 PURE HYPERCHOLESTEROLEMIA, UNSPECIFIED 08/23/2019 YAW SPAULDING MD Ot I25.10 ATHSCL HEART DISEASE OF [place] CORONARY 08/23/2019 YAW SPAULDING MD Ot 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 INFARCTION 08/23/2019 YAW SPAULDING MD Ot N18.9 CHRONIC KIDNEY DISEASE, UNSPECIFIED 08/23/2019 YAW SPAULDING MD Ot N39.0 URINARY TRACT INFECTION, SITE NOT SPECIF 08/23/2019 YAW SPAULDING MD Ot R41.0 DISORIENTATION, UNSPECIFIED 08/23/2019 YAW SPAULDING MD Ot Z79.82 ALF (CURRENT) USE OF ASPIRIN 08/23/2019 YAW SPAULDING MD T Ot Z85.46 PERSONAL HISTORY OF MALIGNANT NEOPLASM O 08/23/2019 CEHLLY PURDY, YAW Nuñez Ot Z85.51 PERSONAL HISTORY OF MALIGNANT NEOPLASM O 08/23/2019 CHELLY PURDY, YAW Nuñez Ot Z87.891 PERSONAL HISTORY OF NICOTINE DEPENDENCE 08/23/2019 CHELLY PURDY, YAW Nuñez Ot Z90.5 ACQUIRED ABSENCE OF KIDNEY 08/23/2019 CHELLY PURDY, YAW Nuñez Ot Z95.5 PRESENCE OF CORONARY ANGIOPLASTY IMPLANT 09/02/2019 JAVIER NICHOLAS MD Ot 185 MALIGN NEOPL PROSTATE 09/02/2019 JAVIER NICHOLAS MD Ot V72.6 3 PRE-PROCEDURAL LABORATORY EXAMINATION 09/02/2019 JAVIER NICHOLAS MD, Ot V74.8 SCREEN-BACTERIAL DIS NEC 09/02/2019 Ot 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 09/02/2019 Ot 728.9 MUSC LE/LIGAMENT DIS NOS 09/02/2019 JAVIER NICHOLAS MD Ot 562.1 0 DIVERTICULOSIS COLON (W/O MENT OF HEMORR 09/02/2019 JAVIER NICHOLAS MD Ot 599.7 0 HEMATURIA, UNSPECIFIED 09/02/2019 JAVIER NICHOLAS MD Ot 721.3 LUMBOSACRAL SPONDYLOSIS 09/02/2019 JAVIER NICHOLAS MD Ot 733.9 0 BONE CARTILAGE DIS NOS 09/02/2019 JAVIER NICHOLAS MD Ot 785.6 ENLARGEMENT LYMPH NODES 09/02/2019 JAVIER NICHOLAS MD Ot R31.9 HEMATURIA, UNSPECIFIED 09/02/2019 BLAKE BOYCE MD Ot M46.06 SPINAL ENTHESOPATHY, LUMBAR REGION 09/02/2019 BLAKE BOYCE MD Ot M46.06 SPINAL ENTHESOPATHY, LUMBAR REGION 09/02/2019 CAIO PURDY, BASHIR Mauro Ot I10 ESSENTIAL (PRIMARY) HYPERTENSION 09/02/2019 CAIO PURDY, BASHIR Mauro Ot I25.10 ATHSCL HEART DISEASE OF [place] CORONARY 09/02/2019 CIAO PURDY, BASHIR Mauro Ot R06.02 SHORTNESS OF BREATH 09/02/2019 BASHIR KEARNEY MD Ot R42 DIZZINESS AND GIDDINESS 09/02/2019 DEVORA PURDY, TASIA Nguyen Ot C67.9 MALIGNANT NEOPLASM OF [place], UNSPECIFI 09/02/2019 PRAVEENA DC, AMANDA Muñoz Ot M54.5 LOW BACK PAIN 09/02/2019 DEVORA PURDY, TASIA Nguyen Ot C67.9 MALIGNANT NEOPLASM OF [place], UNSPECIFI 09/02/2019 DEVORA PURDY, TASIA Nguyen Ot C67.9 MALIGNANT NEOPLASM OF [place], UNSPECIFI 09/02/2019 BLAKE BOYCE MD Ot E04.1 NONTOXIC SINGLE THYROID NODULE 09/02/2019 BLAKE BOYCE MD, Ot J44.9 CHRONIC OBSTRUCTIVE PULMONARY DISEASE, U 09/02/2019 BLAKE BOYCE MD, Ot Z98.890 OTHER SPECIFIED POSTPROCEDURAL STATES 09/02/2019 BLAKE BOYCE MD Ot G89.29 OTHER CHRONIC PAIN 09/02/2019 BLAKE BOYCE MD, Ot M25.551 PAIN IN RIGHT HIP 09/02/2019 BLAKE BOYCE MD, Ot M25.552 PAIN IN LEFT HIP 09/02/2019 BASHIR KEARNEY MD Ot Z48.812 ENCNTR FOR SURGICAL AFTCR FOLLOWING SURG 09/02/2019 BASHIR KEARNEY MD Ot Z95 .5 PRESENCE OF CORONARY ANGIOPLASTY IMPLANT 09/02/2019 BLAKE BOYCE MD, Ot M25.571 PAIN IN RIGHT ANKLE AND JOINTS OF RIGHT 09/02/2019 BLAKE BOYCE MD Ot D73.89 OTHER DISEASES OF SPLEEN 09/02/2019 BLAKE BOYCE MD Ot 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, 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 09/02/2019 BLAKE BOYCE MD Ot K85.80 OTHER ACUTE PANCREATITIS WITHOUT NECROSI 09/02/2019 BLAKE BOYCE MD Ot N28.1 CYST OF KIDNEY, ACQUIRED 09/02/2019 BLAKE BOYCE MD Ot Z90.6 ACQUIRED ABSENCE OF OTHER PARTS OF URINA 09/02/2019 BLAKE BOYCE MD, Ot Z98.890 OTHER SPECIFIED POSTPROCEDURAL STATES 09/02/2019 Ot Z29.8 ENCO UNTER FOR OTHER SPECIFIED PROPHYLACT 09/02/2019 JENNA DO, WESLEY Peng Ot M19.011 PRIMARY OSTEOARTHRITIS, RIGHT SHOULDER 09/02/2019 JENNA DOWESLEY Ot M75.101 UNSP ROTATR-CUFF TEAR/RUPTR OF RIGHT ROBERT 09/02/2019 JENNA CHRIS, WESLEY F Ot M75.31 CALCIFIC TENDINITIS OF RIGHT SHOULDER 09/09/2019 RANDY, ERMIAS E MICROFICHE DUPLICATOR Ot 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, CE 09/09/2019 RANDY, ERMIAS E MICROFICHE DUPLICATOR Ot M48.03 SPINAL STENOSIS, CERVICOTHORACIC REGION 09/09/2019 RANDY, ERMIAS E MICROFICHE DUPLICATOR Ot 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, H 09/11/2019 RANDY, ERMIAS E MICROFICHE DUPLICATOR Ot 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, CE 09/11/2019 RANDY, ERMIAS E MICROFICHE DUPLICATOR Ot M48.03 SPINAL STENOSIS, CERVICOTHORACIC REGION 09/11/2019 RANDY, ERMIAS E MICROFICHE DUPLICATOR Ot 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, H 09/21/2019 CHELLY PURDY, YAW Nuñez Ot E78.00 PURE HYPERCHOLESTEROLEMIA, UNSPECIFIED 09/21/2019 YAW SPAULDING MD Ot I25.10 ATHSCL HEART DISEASE OF [place] CORONARY 09/21/2019 YAW SPAULDING MD Ot 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 INFARCTION 09/21/2019 YAW SPAULDING MD Ot R07.9 CHEST PAIN, UNSPECIFIED 09/21/2019 YAW SPAULDING MD Ot Z79.82 DENTAL RESIDENT (CURRENT) USE OF ASPIRIN 09/21/2019 YAW SPAULDING MD Ot Z85.46 PERSONAL HISTORY OF MALIGNANT NEOPLASM O 09/21/2019 YAW SPAULDING MD Ot Z85.51 PERSONAL HISTORY OF MALIGNANT NEOPLASM O 09/21/2019 YAW SPAULDING MD Ot Z95.1 PRESENCE OF AORTOCORONARY BYPASS GRAFT 09/21/2019 YAW SPAULDING MD Ot Z95.5 PRESENCE OF CORONARY ANGIOPLASTY IMPLANT 09/21/2019 YAW SPAULDING MD Ot Z96.652 PRESENCE OF LEFT ARTIFICIAL KNEE JOINT 09/23/2019 YAW SPAULDING MD Ot E78.00 PURE HYPERCHOLESTEROLEMIA, UNSPECIFIED 09/23/2019 YAW SPAULDING MD Ot I25.10 ATHSCL HEART DISEASE OF [place] CORONARY 09/23/2019 YAW SPAULDING MD Ot 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 INFARCTION 09/23/2019 YAW SPAULDING MD Ot R07.9 CHEST PAIN, UNSPECIFIED 09/23/2019 YAW SPAULDING MD Ot Z79.82 DENTAL RESIDENT (CURRENT) USE OF ASPIRIN 09/23/2019 YAW SPAULDING MD Ot Z85.46 PERSONAL HISTORY OF MALIGNANT NEOPLASM O 09/23/2019 YAW SPAULDING MD Ot Z85.51 PERSONAL HISTORY OF MALIGNANT NEOPLASM O 09/23/2019 YAW SPAULDING MD Ot Z95.1 PRESENCE OF AORTOCORONARY BYPASS GRAFT 09/23/2019 YAW SPAULDING MD Ot Z95.5 PRESENCE OF CORONARY ANGIOPLASTY IMPLANT 09/23/2019 YAW SPAULDING MD Ot Z96.652 PRESENCE OF LEFT ARTIFICIAL KNEE JOINT 09/30/2019 YAW SPAULDING MD Ot E78.00 PURE HYPERCHOLESTEROLEMIA, UNSPECIFIED 09/30/2019 YAW SPAULDING MD Ot I25.10 ATHSCL HEART DISEASE OF [place] CORONARY 09/30/2019 YAW SPAULDING MD Ot 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 INFARCTION 09/30/2019 YAW SPAULDING MD Ot R07.9 CHEST PAIN, UNSPECIFIED 09/30/2019 YAW SPAULDING MD Ot Z79.82 ALF (CURRENT) USE OF ASPIRIN 09/30/2019 YAW SPAULDING MD Ot Z85.46 PERSONAL HISTORY OF MALIGNANT NEOPLASM O 09/30/2019 YAW SPAULDING MD Ot Z85.51 PERSONAL HISTORY OF MALIGNANT NEOPLASM O 09/30/2019 YAW SPAULDING MD Ot Z95.1 PRESENCE OF AORTOCORONARY BYPASS GRAFT 09/30/2019 YAW SPAULDING MD Ot Z95.5 PRESENCE OF CORONARY ANGIOPLASTY IMPLANT 09/30/2019 YAW SPAULDING MD Ot Z96.652 PRESENCE OF LEFT ARTIFICIAL KNEE JOINT 10/01/2019 ERMIAS PADILLA APRN Ot 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, CE 10/01/2019 ERMIAS PADILLA APRN Ot M48.03 SPINAL STENOSIS, CERVICOTHORACIC REGION 10/01/2019 ERMIAS PADILLA APRN Ot 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, H 10/24/2019 BLAKE BOYCE MD, Ot Z01.89 ENCOUNTER FOR OTHER SPECIFIED SPECIAL EX 11/01/2019 BLAKE BOYCE MD, Ot Z01.89 ENCOUNTER FOR OTHER SPECIFIED SPECIAL EX 11/01/2019 BLAKE BOYCE MD, Ot E04.1 NONTOXIC SINGLE THYROID NODULE 11/01/2019 BLAKE BOYCE MD, Ot J44.9 CHRONIC OBSTRUCTIVE PULMONARY DISEASE, U 11/01/2019 BLAKE BOYCE MD, Ot Z98.890 OTHER SPECIFIED POSTPROCEDURAL STATES 11/01/2019 BLAKE BOYCE MD, Ot G89.29 OTHER CHRONIC PAIN 11/01/2019 BLAKE BOYCE MD, Ot M25.551 PAIN IN RIGHT HIP 11/01/2019 BLAKE BOYCE MD, Ot M25.552 PAIN IN LEFT HIP 11/01/2019 BASHIR KEARNEY MD Ot Z48.812 ENCNTR FOR SURGICAL AFTCR FOLLOWING SURG 11/01/2019 BASHIR KEARNEY MD Ot Z95 .5 PRESENCE OF CORONARY ANGIOPLASTY IMPLANT 11/01/2019 BLAKE BOYCE MD, Ot M25.571 PAIN IN RIGHT ANKLE AND JOINTS OF RIGHT 11/01/2019 BLAKE BOYCE MD, Ot D73.89 OTHER DISEASES OF SPLEEN 11/01/2019 BLAKE BOYCE MD, Ot 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, 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 11/01/2019 BLAKE BOYCE MD, Ot K85.80 OTHER ACUTE PANCREATITIS WITHOUT NECROSI 11/01/2019 BLAKE BOYCE MD, Ot N28.1 CYST OF KIDNEY, ACQUIRED 11/01/2019 BLAKE BOYCE MD Ot Z90.6 ACQUIRED ABSENCE OF OTHER PARTS OF URINA 11/01/2019 BLAKE BOYCE MD, Ot Z98.890 OTHER SPECIFIED POSTPROCEDURAL STATES 11/01/2019 Ot Z29.8 ENCO UNTER FOR OTHER SPECIFIED PROPHYLACT 11/01/2019 JENNA DO, WESLEY F Ot M19.011 PRIMARY OSTEOARTHRITIS, RIGHT SHOULDER 11/01/2019 JENNA DO, WESLEY F Ot M75.101 UNSP ROTATR-CUFF TEAR/RUPTR OF RIGHT ROBERT 11/01/2019 JENNA CHRIS, WESLEY Peng Ot M75.31 CALCIFIC TENDINITIS OF RIGHT SHOULDER 11/01/2019 ERMIAS PADILLA APRN Ot 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, CE 11/01/2019 ERMIAS PADILLA APRN Ot M48.03 SPINAL STENOSIS, CERVICOTHORACIC REGION 11/01/2019 ERMIAS PADILLA APRN Ot 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, H 11/01/2019 CARLI PURDY, BLAKE Miller Ot Z01.89 ENCOUNTER FOR OTHER SPECIFIED SPECIAL EX Procedures Code Description Performed By Per formed [...] culture - 03/21/19 10:20 Bacterial urine culture [id number] NRG COLONY COUNT >100,000/ML NRG FTX;REPORTABLE SUSCEPTIBILITY [...] culture - 05/10/19 14:49 Bacterial urine culture [id number] NRG COLONY COUNT 50,000 CFU/ML NRG FTX;REPORTABLE SUSCEPTIBILITIES REPORTED 05-13-19,1 146 NR FREE TEXT ENTRY 2 PRELIM RAPID ID BY VCP 05-11-19, [id number] NR FREE TEXT ENTRY 3 ID CONFIRMED NRG [...] 05/10/19 15:24 Bacterial blood culture NG NRG Complete urinalysis with reflex to cultu re - 05/24/19 16:02 Urine color determination YELLOW NRG Urine clarity determination CLEAR NR G Urine pH measurement by test strip 7.5 5-9 Specific gravity of urine by test strip 1.015 1.016-1.022 Urine protein assay by test strip, semi-quantitative TRACE NEGATIVE Urine glucose detection by automated test strip NE GATIVE NEGATIVE Erythrocytes detection in urine sediment by light micr oscopy 1+ NEGATIVE Urine ketones detection by automated test strip NE GATIVE NEGATIVE Urine nitrite detection by test strip POSITIVE NEGATIVE Urine total bilirubin detection by test strip NEGA TIVE NEGATIVE Urine urobilinogen measurement by automated test strip (mass/volume) 0.2 mg/dL < = 1.0 Urine leukocyte esterase detection by dipstick TRA CE NEGATIVE Automated urine sediment erythrocyte cou nt by microscopy (number/high power field) [HPF] NRG Automated urine sediment leukocyte count by microscopy (number/high power field) [HPF] NRG Bacteria detection in urine sediment by light microsco py MODERATE NRG Squamous epithelial cells detection in u rine sediment by light microscopy RARE NRG Crystals detection in urine sediment by light microsco py NONE NRG Casts detection in urine sediment by light microscopy NONE NRG Mucus detection in urine sediment by light microscopy NEGATIVE NRG Complete urinalysis with reflex to culture YES NRG Bacterial urine culture - 05/24/19 16:02 Bacterial urine culture SEE COMMEN NRG COLONY COUNT 70,000 cfu/ml NRG FTX;REPORTABLE GRAM POSITIVES, SUGGESTING PROBABLE NRG FREE TEXT ENTRY 2 COLLECTION CONTAMINATION WITH SK IN DAFNE NRG FREE TEXT ENTRY 3 NO SUSCEPTIBILITY REPORTED NRG Complete blood count (CBC) with automate d white blood cell (WBC) differential - 05/24/19 16:12 Blood leukocytes automated count (number/volume) 6.6 10*3/uL 4.3-11.0 Blood erythrocytes automated count (number/volume) 3.96 10*6/uL 4.35-5.85 Venous blood hemoglobin measurement (mass/volume) 11.6 g/dL 13.3-17.7 Blood hematocrit (volume fraction) 36 % 40-54 Automated erythrocyte mean corpuscular volume 92 [ foz_us] 80-99 Automated erythrocyte mean corpuscular h emoglobin (mass per erythrocyte) 29 pg 25-34 Automated erythrocyte mean corpuscular h emoglobin concentration measurement (mass/volume) 32 g/dL 32-36 Automated erythrocyte distribution width ratio 15. 8 % 10.0- 14.5 Automated blood platelet count (count/volume) 385 10*3/uL 130-400 Automated blood platelet mean volume measurement 9.4 [foz_us] 7.4-10.4 Automated blood neutrophils/100 leukocytes 74 % 42-75 Automated blood lymphocytes/100 leukocytes 12 % 12-44 Blood monocytes/100 leukocytes 9 % 0-12 Automated blood eosinophils/100 leukocytes 4 % 0-10 Automated blood basophils/100 leukocytes 1 % 0-10 Blood neutrophils automated count (number/volume) 4.9 10*3 1.8-7.8 Blood lymphocytes automated count (number/volume) 0.8 10*3 1.0-4.0 Blood monocytes automated count (number/volume) 0. 6 10*3 0.0-1.0 Automated eosinophil count 0.3 10*3/uL 0 .0-0.3 Automated blood basophil count (count/volume) 0.0 10*3/uL 0.0-0.1 Whole blood basic metabolic panel - 04/28 11/13 16:12 Serum or plasma sodium measurement (moles/volume) 137 mmol/L 135-145 Serum or plasma potassium measurement (moles/volume) 4.9 mmol/L 3.6-5.0 Serum or plasma chloride measurement (moles/volume) 101 mmol/L 98-107 Carbon dioxide 23 mmol/L 21-32 Serum or plasma anion gap determination (moles/volume) 13 mmol/L 5-14 Serum or plasma urea nitrogen measurement (mass/volume ) 30 mg/dL 7-18 Serum or plasma creatinine measurement (mass/volume) 2.35 mg/dL 0.60-1.30 Serum or plasma urea nitrogen/creatinine mass ratio 13 NRG Serum or plasma creatinine measurement w ith calculation of estimated glomerular filtration rate 27 NRG Serum or plasma glucose measurement (mass/volume) 97 mg/dL 70-105 Serum or plasma calcium measurement (mass/volume) 9.8 mg/dL 8.5-10.1 Complete blood count (CBC) with automate d white blood cell (WBC) differential - 08/20/19 13:34 Blood leukocytes automated count (number/volume) 6.0 10*3/uL 4.3-11.0 Blood erythrocytes automated count (number/volume) 4.09 10*6/uL 4.35-5.85 Venous blood hemoglobin measurement (mass/volume) 11.8 g/dL 13.3-17.7 Blood hematocrit (volume fraction) 37 % 40-54 Automated erythrocyte mean corpuscular volume 90 [ foz_us] 80-99 Automated erythrocyte mean corpuscular h emoglobin (mass per erythrocyte) 29 pg 25-34 Automated erythrocyte mean corpuscular h emoglobin concentration measurement (mass/volume) 32 g/dL 32-36 Automated erythrocyte distribution width ratio 16. 3 % 10.0- 14.5 Automated blood platelet count (count/volume) 201 10*3/uL 130-400 Automated blood platelet mean volume measurement 9.2 [foz_us] 7.4-10.4 Automated blood neutrophils/100 leukocytes 78 % 42-75 Automated blood lymphocytes/100 leukocytes 10 % 12-44 Blood monocytes/100 leukocytes 8 % 0-12 Automated blood eosinophils/100 leukocytes 3 % 0-10 Automated blood basophils/100 leukocytes 0 % 0-10 Blood neutrophils automated count (number/volume) 4.7 10*3 1.8-7.8 Blood lymphocytes automated count (number/volume) 0.6 10*3 1.0-4.0 Blood monocytes automated count (number/volume) 0. 5 10*3 0.0-1.0 Automated eosinophil count 0.2 10*3/uL 0 .0-0.3 Automated blood basophil count (count/volume) 0.0 10*3/uL 0.0-0.1 Comprehensive metabolic panel - 08/20/19 13:34 Serum or plasma sodium measurement (moles/volume) 140 mmol/L 135-145 Serum or plasma potassium measurement (moles/volume) 4.6 mmol/L 3.6-5.0 Serum or plasma chloride measurement (moles/volume) 107 mmol/L 98-107 Carbon dioxide 21 mmol/L 21-32 Serum or plasma anion gap determination (moles/volume) 12 mmol/L 5-14 Serum or plasma urea nitrogen measurement (mass/volume ) 27 mg/dL 7-18 Serum or plasma creatinine measurement (mass/volume) 2.41 mg/dL 0.60-1.30 Serum or plasma urea nitrogen/creatinine mass ratio 11 NRG Serum or plasma creatinine measurement w ith calculation of estimated glomerular filtration rate 26 NRG Serum or plasma glucose measurement (mass/volume) 154 mg/dL 70-105 Serum or plasma calcium measurement (mass/volume) 8.8 mg/dL 8.5-10.1 Serum or plasma total bilirubin measurement (mass/volu me) 0.3 mg/dL 0.1-1.0 Serum or plasma alkaline phosphatase liliane surement (enzymatic activity/volume) 82 U/L 40-136 Serum or plasma aspartate aminotransfera se measurement (enzymatic activity/volume) 19 U/L 5-34 Serum or plasma alanine aminotransferase measurement (enzymatic activity/volume) 14 U/L 0-55 Serum or plasma protein measurement (mass/volume) 7.2 g/dL 6.4-8.2 Serum or plasma albumin measurement (mass/volume) 3.9 g/dL 3.2-4.5 CALCIUM CORRECTED 8.9 mg/dL 8.5-10.1 Magnesium - 08/20/19 13:34 Magnesium 2.3 mg/dL 1.6-2.4 Serum or plasma troponin i.cardiac measu rement (mass/volume) - 08/20/19 13:34 Serum or plasma troponin i.cardiac measurement (mass/v olume) < ng/mL <0.028 THYROID STIMULATING HORMONE - 08/20/19 1 3:34 THYROID STIMULATING HORMONE 1.92 u[iU]/mL 0.35-4.94 Serum or plasma thyroxine (T4) free sonny urement (mass/volume) - 08/20/19 13:34 Serum or plasma thyroxine (T4) free measurement (mass/ volume) 0.95 ng/dL 0.70-1.48 Complete urinalysis with reflex to cultu re - 08/20/19 15:25 Urine color determination YELLOW NRG Urine clarity determination CLEAR NR G Urine pH measurement by test strip 6.0 5-9 Specific gravity of urine by test strip 1.020 1.016-1.022 Urine protein assay by test strip, semi-quantitative 2+ NEGATIVE Urine glucose detection by automated test strip NE GATIVE NEGATIVE Erythrocytes detection in urine sediment by light micr oscopy 2+ NEGATIVE Urine ketones detection by automated test strip NE GATIVE NEGATIVE Urine nitrite detection by test strip NEGATIVE NEGATIVE Urine total bilirubin detection by test strip NEGA TIVE NEGATIVE Urine urobilinogen measurement by automated test strip (mass/volume) 1.0 mg/dL < = 1.0 Urine leukocyte esterase detection by dipstick TRA CE NEGATIVE Automated urine sediment erythrocyte cou nt by microscopy (number/high power field) [HPF] NRG Automated urine sediment leukocyte count by microscopy (number/high power field) [HPF] NRG Bacteria detection in urine sediment by light microsco py FEW NRG Squamous epithelial cells detection in u rine sediment by light microscopy RARE NRG Crystals detection in urine sediment by light microsco py NONE NRG Casts detection in urine sediment by light microscopy NONE NRG Mucus detection in urine sediment by light microscopy NEGATIVE NRG Complete urinalysis with reflex to culture YES NRG Renal epithelial cells detection in urin e sediment by light microscopy 2-5 NRG Bacterial urine culture - 08/20/19 15:25 Bacterial urine culture [id number] NRG COLONY COUNT 50,000 CFU/ML NRG SUSCEPTIBILITY SUSCEPTIBILITY REPORTED 08-22-19, 12 16. NRG Dirithromycin susceptibility test by dis k diffusion - 08/20/19 15:25 Gentamicin susceptibility test by minimum inhibitory c [...] susceptibility test by minimum inhibitory co ncentration 4 NRG Cefepime susceptibility test by minimum inhibitory con centration 2 NRG Imipenem susceptibility test by minimum inhibitory con centration 2 NRG Ceftazidime susceptibility test by minimum inhibitory concentration <= NRG Complete blood count (CBC) with automate d white blood cell (WBC) differential - 09/21/19 09:13 Blood leukocytes automated count (number/volume) 4.2 10*3/uL 4.3-11.0 Blood erythrocytes automated count (number/volume) 4.54 10*6/uL 4.35-5.85 Venous blood hemoglobin measurement (mass/volume) 13.3 g/dL 13.3-17.7 Blood hematocrit (volume fraction) 41 % 40-54 Automated erythrocyte mean corpuscular volume 91 [ foz_us] 80-99 Automated erythrocyte mean corpuscular h emoglobin (mass per erythrocyte) 29 pg 25-34 Automated erythrocyte mean corpuscular h emoglobin concentration measurement (mass/volume) 32 g/dL 32-36 Automated erythrocyte distribution width ratio 16. 0 % 10.0- 14.5 Automated blood platelet count (count/volume) 185 10*3/uL 130-400 Automated blood platelet mean volume measurement 9.1 [foz_us] 7.4-10.4 Automated blood neutrophils/100 leukocytes 68 % 42-75 Automated blood lymphocytes/100 leukocytes 16 % 12-44 Blood monocytes/100 leukocytes 10 % 0-12 Automated blood eosinophils/100 leukocytes 6 % 0-10 Automated blood basophils/100 leukocytes 1 % 0-10 Blood neutrophils automated count (number/volume) 2.9 10*3 1.8-7.8 Blood lymphocytes automated count (number/volume) 0.7 10*3 1.0-4.0 Blood monocytes automated count (number/volume) 0. 4 10*3 0.0-1.0 Automated eosinophil count 0.2 10*3/uL 0 .0-0.3 Automated blood basophil count (count/volume) 0.0 10*3/uL 0.0-0.1 Comprehensive metabolic panel - 09/21/19 09:13 Serum or plasma sodium measurement (moles/volume) 140 mmol/L 135-145 Serum or plasma potassium measurement (moles/volume) 4.8 mmol/L 3.6-5.0 Serum or plasma chloride measurement (moles/volume) 109 mmol/L 98-107 Carbon dioxide 20 mmol/L 21-32 Serum or plasma anion gap determination (moles/volume) 11 mmol/L 5-14 Serum or plasma urea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
--- NOTE | 2019-11-03 09:54 | NUR ---
Spoke with Annamarie, patients . Annamarie was updated that patient was being evaluated at this time by the provider and we had sent blood and a urine off. I told Annamarie that we were busy at this time and it might be a while before I could update her again, but to feel free to call when she wanted updated. Annamarie stated that she would do this and was going to go on home rather than sit in the parking lot.
[2019-11-03 09:56] LABS: BASOPHILS % (AUTO) 1 % (0-10); EOSINOPHILS # (AUTO) 0.3 10^3/uL (0.0-0.3); EOSINOPHILS % (AUTO) 6 % (0-10); HEMATOCRIT 42 % (40-54); HEMOGLOBIN 13.7 G/DL (13.3-17.7); LYMPHOCYTES # (AUTO) 0.8 X 10^3 (1.0-4.0); LYMPHOCYTES % (AUTO) 16 % (12-44); MEAN CORPUSCULAR HEMOGLOBIN 29 PG (25-34); MEAN CORPUSCULAR HGB CONC 33 G/DL (32-36); MEAN CORPUSCULAR VOLUME 90 FL (80-99); MEAN PLATELET VOLUME 9.6 FL (7.4-10.4); MONOCYTES # (AUTO) 0.6 X 10^3 (0.0-1.0); MONOCYTES % (AUTO) 10 % (0-12); NEUTROPHILS # (AUTO) 3.7 X 10^3 (1.8-7.8); NEUTROPHILS % (AUTO) 68 % (42-75); PLATELET COUNT 190 10^3/uL (130-400); RED CELL DISTRIBUTION WIDTH 15.5 % (10.0-14.5); WHITE BLOOD COUNT 5.4 10^3/uL (4.3-11.0)
[2019-11-03 10:07] LABS: CALCIUM 8.9 MG/DL (8.5-10.1)
[2019-11-03 10:08] LABS: TOTAL PROTEIN 7.5 GM/DL (6.4-8.2)
[2019-11-03 10:10] LABS: BILIRUBIN,TOTAL 0.3 MG/DL (0.1-1.0)
[2019-11-03 10:12] LABS: CREATININE SERUM 2.14 MG/DL (0.60-1.30)
[2019-11-03 10:30] LABS: POTASSIUM 5.6 MMOL/L (3.6-5.0)
[2019-11-03 10:32] LABS: FREE T4 (FREE THYROXINE) 0.94 NG/DL (0.70-1.48)
[2019-11-03 10:38] LABS: BILIRUBIN,URINE NEGATIVE (NEGATIVE); CLARITY,URINE CLEAR; COLOR,URINE YELLOW; GLUCOSE, URINE (UA) NEGATIVE (NEGATIVE); KETONES,URINE NEGATIVE (NEGATIVE); LEUKOCYTE ESTERASE ,URINE 1+ (NEGATIVE); NITRITE,URINE POSITIVE (NEGATIVE); PROTEIN,URINE 2+ (NEGATIVE)
[2019-11-03 10:50] LABS: BACTERIA,URINE MODERATE /HPF; SQUAMOUS EPITHELIAL CELL,UR 0-2 /HPF; WBC,URINE 50-100 /HPF
--- NOTE | 2019-11-03 11:05 | ED General ---
General Chief Complaint: Altered Mental Status Stated Complaint: AMS Nursing Triage Note: Patient reports he was here 2 days prior for similar. reports that patient is having altered mental status. patient states that he told his about a dream he had last night and she brought him back. Nursing Sepsis Screen: No Definite Risk Source of Information: Patient Exam Limitations: No Limitations History of Present Illness Date Seen by Provider: Nov 03, 2019 Time Seen by Provider: 11:00 Initial Comments To ER with c/o confusion. hx utis. was rummaging around his house today looking for clothes for a wedding-(there is no wedding). He states he feels fine and states "oh hell, all 84 year olds get confused from time to time". Timing/Duration: 1-3 Hours Severity: Mild Allergies and Home Medications Allergies Coded Allergies: NKANo Known Allergies (Verified Allergy, Mild, 11/24/11) Uncoded Allergies: BEE STINGS (Allergy, Severe, SOA/HIVES, 11/01/10) Home Medications Acetaminophen 325 Mg Capsule, 650 MG PO Q6H PRN for PAIN-MILD (1-4), (Reported) Aspirin 81 Mg Tablet.dr, 81 MG PO Tu, (Reported) Calcium Carbonate/Vitamin D3 1 Each Tablet, 1 TAB PO BID, (Reported) Diltiazem HCl 90 Mg Tablet, 90 MG PO HS, (Reported) Docusate Sodium 100 Mg Capsule, 100 MG PO DAILY, (Reported) Gemfibrozil 600 Mg Tablet, 600 MG PO DAILY, (Reported) Isosorbide Mononitrate 30 Mg Tab.er.24h, 30 MG PO DAILY, (Reported) Levothyroxine Sodium 50 Mcg Tablet, 50 MCG PO DAILY, (Reported) Lisinopril 5 Mg Tablet, 2.5 MG PO HS, (Reported) Loratadine/Pseudoephedrine 1 Each Tab.er.12h, 1 EACH PO Q12H PRN for CONGESTION, (Reported) Multivitamin 1 Each Tablet, 1 TAB PO DAILY, (Reported) Omeprazole 40 Mg Capsule.dr, 40 MG PO DAILY, (Reported) Ondansetron 4 Mg Tab.rapdis, 4 MG PO Q6H PRN for NAUSEA/VOMITING, (Reported) Pramipexole Di-HCl 0.25 Mg Tablet, 0.25 MG PO DAILY, (Reported) Rosuvastatin Calcium 20 Mg Tablet, 20 MG PO HS, (Reported) Temazepam 30 Mg Capsule, 30 MG PO HS, (Reported) Tramadol HCl 50 Mg Tablet, 50 MG PO Q6H PRN for PAIN-MODERATE (5-7), (Reported) [[place]/Zinc/Turmeric] , 1 CAP PO BID, (Reported) Patient Home Medication List Home Medication List Reviewed: Yes Review of Systems Review of Systems Constitutional: see HPI EENTM: see HPI Respiratory: no symptoms reported Cardiovascular: no symptoms reported Genitourinary: no symptoms reported Musculoskeletal: no symptoms reported Skin: no symptoms reported Psychiatric/Neurological: No Symptoms Reported Hematologic/Lymphatic: No Symptoms Reported Immunological/Allergic: no symptoms reported Past Aptrcli-Xstaym-Dxgttl Hx Patient Social History Alcohol Use: Denies Use Recreational Drug Use: No Former Smoker, Quit: Jun 07, 1974 2nd Hand Smoke Exposure: No Recent Foreign Travel: No Contact w/Someone Who Travel: No Recent Infectious Disease Expo: No Recent Hopitalizations: Yes Immunizations Up To Date Tetanus Booster (TDap): Unknown Date of Pneumonia Vaccine: Feb 03, 2015 Date of Influenza Vaccine: Jan 12, 2019 Seasonal Allergies Seasonal Allergies: Yes Past Medical History Surgeries: Yes (LEFT WRIST, LEFT KNEE SCOPE, TOTAL LEFT KNEE, HEMORRHOIDS,TURP ) Abdominal, Bladder Surgery, CABG, Coronary Stent, Joint Replacement, Nephrectomy Respiratory: No Currently Using CPAP: No Currently Using BIPAP: No Cardiac: Yes (STENTS X5) Coronary Artery Disease, Heart Attack, High Cholesterol Neurological: No Reproductive Disorders: No Sexually Transmitted Disease: No HIV/AIDS: No Genitourinary: Yes (urostomy) Prostate Problems Gastrointestinal: Yes (colostomy) Obstructive Bowel Musculoskeletal: Yes Arthritis Endocrine: No Hearing Impairment: Denies, Hearing Aide Right, Hearing Aide Left Cancer: Yes (NOSE) Bladder, Prostate Psychosocial: No Integumentary: No Blood Disorders: No Adverse Reaction/Blood Tranf: No Family Medical History Arthritis 19 FATHER 19 MOTHER Diabetes mellitus 19 FATHER Myocardial infarction 19 FATHER 19 MOTHER Respiratory disorder G8 SISTER No Family History of: AIDS [place]'s disease Alcoholism Alzheimer's disease Cancer of mouth Colon cancer Completed stroke Dementia Kidney disease Parkinson's disease Prostate cancer Psychosocial problem Seizure disorder Severe allergy Thyroid disease Tuberculosis No Pertinent Family Hx Physical Exam Vital Signs Vital Signs - First Documented 11/03/19 09:06 Temp 36.4 Pulse 81 Resp 18 B/P (MAP) 138/82 (100) Pulse Ox 96 Capillary Refill : Less Than 3 Seconds Height, Weight, BMI Height: 5'7.00" Weight: 195lbs. 0oz. 88.194113yp; 30.00 BMI Method:Stated General Appearance: No Apparent Distress, WD/WN Eyes: Bilateral Eye Normal Inspection, Bilateral Eye PERRL, Bilateral Eye EOMI Neck: Full Range of Motion, Normal Inspection Respiratory: No Accessory Muscle Use, No Respiratory Distress Gastrointestinal: Non Tender, Soft Extremity: Normal Capillary Refill, Normal Inspection Neurologic/Psychiatric: Alert, Oriented x3 Skin: Normal Color, Warm/Dry Procedures/Interventions Suture Size: 4-0 Progress/Results/Core Measures Suspected Sepsis Recent Fever Within 48 Hours: No Infection Criteria Present: None New/Unexplained Altered Menta: No Sepsis Screen: No Definite Risk SIRS Temperature: Pulse: 81 Respiratory Rate: 18 Laboratory Tests 11/03/19 09:40: White Blood Count 5.4 Blood Pressure 138 /82 Mean: 100 Laboratory Tests 11/03/19 09:40: Creatinine 2.14H, Platelet Count 190, Total Bilirubin 0.3 Results/Orders Lab Results Laboratory Tests Test 11/03/19 09:40 Range/Units White Blood Count 5.4 4.3-11.0 10^3/uL Red Blood Count 4.67 4.35-5.85 10^6/uL Hemoglobin 13.7 13.3-17.7 G/DL Hematocrit 42 40-54 % Mean Corpuscular Volume 90 80-99 FL Mean Corpuscular Hemoglobin 29 25-34 PG Mean Corpuscular Hemoglobin Concent 33 32-36 G/DL Red Cell Distribution Width 15.5 H 10.0-14.5 % Platelet Count 190 130-400 10^3/uL Mean Platelet Volume 9.6 7.4-10.4 FL Neutrophils (%) (Auto) 68 42-75 % Lymphocytes (%) (Auto) 16 12-44 % Monocytes (%) (Auto) 10 0-12 % Eosinophils (%) (Auto) 6 0-10 % Basophils (%) (Auto) 1 0-10 % Neutrophils # (Auto) 3.7 1.8-7.8 X 10^3 Lymphocytes # (Auto) 0.8 L 1.0-4.0 X 10^3 Monocytes # (Auto) 0.6 0.0-1.0 X 10^3 Eosinophils # (Auto) 0.3 0.0-0.3 10^3/uL Basophils # (Auto) 0.0 0.0-0.1 10^3/uL Urine Color YELLOW Urine Clarity CLEAR Urine pH 6.0 5-9 Urine Specific [place] 1.025 H 1.016-1.022 Urine Protein 2+ H NEGATIVE Urine Glucose (UA) NEGATIVE NEGATIVE Urine Ketones NEGATIVE NEGATIVE Urine Nitrite POSITIVE H NEGATIVE Urine Bilirubin NEGATIVE NEGATIVE Urine Urobilinogen 0.2 < = 1.0 MG/DL Urine Leukocyte Esterase 1+ H NEGATIVE Urine RBC (Auto) 2+ H NEGATIVE Urine RBC 5-10 H /HPF Urine WBC 50-100 H /HPF Urine Squamous Epithelial Cells 0-2 /HPF Urine Crystals NONE /LPF Urine Bacteria MODERATE H /HPF Urine Casts NONE /LPF Urine Mucus NEGATIVE /LPF Urine Culture Indicated YES Sodium Level 138 135-145 MMOL/L Potassium Level 5.6 H 3.6-5.0 MMOL/L Chloride Level 110 H 98-107 MMOL/L Carbon Dioxide Level 15 L 21-32 MMOL/L Anion Gap 13 5-14 MMOL/L Blood Urea Nitrogen 20 H 7-18 MG/DL Creatinine 2.14 H 0.60-1.30 MG/DL Estimat Glomerular Filtration Rate 30 BUN/Creatinine Ratio 9 Glucose Level 106 H 70-105 MG/DL Calcium Level 8.9 8.5-10.1 MG/DL Corrected Calcium 8.9 8.5-10.1 MG/DL Total Bilirubin 0.3 0.1-1.0 MG/DL Aspartate Amino Transf (AST/SGOT) 28 5-34 U/L Alanine Aminotransferase (ALT/SGPT) 16 0-55 U/L Alkaline Phosphatase 85 40-136 U/L C-Reactive Protein High Sensitivity 0.68 H 0.00-0.50 MG/DL Total Protein 7.5 6.4-8.2 GM/DL Albumin 4.0 3.2-4.5 GM/DL Thyroid Stimulating Hormone (TSH) 2.34 0.35-4.94 UIU/ML Free Thyroxine 0.94 0.70-1.48 NG/DL My Orders Orders - LOUISA ARBOLEDA APRN Ct Head Wo (11/03/19 10:34) Levofloxacin Tablet (Levaquin Tablet) (11/03/19 11:15) Vital Signs/I&O 11/03/19 09:06 Temp 36.4 Pulse 81 Resp 18 B/P (MAP) 138/82 (100) Pulse Ox 96 Capillary Refill : Less Than 3 Seconds Blood Pressure Mean: 100 Departure Impression Primary Impression: UTI (urinary tract infection) Qualified Codes: N39.0 - Urinary tract infection, site not specified Disposition: 01 HOME, SELF-CARE Condition: Stable Departure-Patient Inst. Decision time for Depature: 11:09 Referrals: BLAKE BOYCE MD (PCP/Family) Primary Care Physician Patient Instructions: Urinary Tract Infection, Adult (DC) Add. Discharge Instructions: antibiotics as directed 2. Follow-up with your doctor next week 3. Return to ER for any worsening All discharge instructions reviewed with patient and/or family. Voiced unde rstanding. Scripts Levofloxacin (Levaquin) 750 Mg Tablet 750 MG PO every other day, #4 TAB Prov: LOUISA ARBOLEDA APRN 11/03/19 LOUISA ARBOLEDA APRN Nov 03, 2019 11:05
[2019-11-03] MEDS ORDERED: LEVOFLOXACIN 750 MG TAB (LEVAQUIN) PO ONE (11:15)
[2019-11-03] MEDS ORDERED: LEVO750T9 PO (11:17)
--- NOTE | 2019-11-03 11:24 | NUR ---
Updated Annamarie at this time, regarding the patient having a UTI and being treated with Levaquin. Notified her that when the CT report was back the patient would be discharged if nothing was abnormal.
--- NOTE | 2019-11-03 11:40 | Diagnostic Imaging Report ---
PROCEDURE: CT head without contrast. TECHNIQUE: Multiple contiguous axial images were obtained through the brain without the use of intravenous contrast. Auto Exposure Controls were utilized during the CT exam to meet ALARA standards for radiation dose reduction. INDICATION: Altered mental status. COMPARISON: 05/10/2019. FINDINGS: There is diffuse cortical atrophy. No evidence of intracranial hemorrhage. No mass effect. Diffuse periventricular white matter changes are noted. Bilateral benign basal nuclei calcification. Basal cisterns are clear. CP angles are normal. The mastoid air cells are clear. There is a mucosal edema within the ethmoid air cells. IMPRESSION: 1. Findings consistent with the global volume loss and white matter changes consistent with chronic small vessel disease. No acute changes are demonstrated when compared with previous exam. 2. The findings are consistent with mild inflammatory changes of the ethmoid sinuses bilaterally. Dictated by: Dictated on workstation # [id number]
[2019-11-03 12:05] VITALS: BP 129/58
== END 2019-11-03 12:05 | disposition home or self-care (01) ==
LOC: EDUNIT# 09:00 → ER 09:01
DX: N39.0 Urinary tract infection, site not specified (principal); I25.10 Atherosclerotic heart disease of native coronary artery without angina pectoris; I25.2 Old myocardial infarction; E78.00 Pure hypercholesterolemia, unspecified; Z79.82 Long term (current) use of aspirin; Z87.891 Personal history of nicotine dependence; Z95.1 Presence of aortocoronary bypass graft; Z95.5 Presence of coronary angioplasty implant and graft; Z85.51 Personal history of malignant neoplasm of bladder; Z85.46 Personal history of malignant neoplasm of prostate; Z85.22 Personal history of malignant neoplasm of nasal cavities, middle ear, and accessory sinuses; Z82.49 Family history of ischemic heart disease and other diseases of the circulatory system
CPT/HCPCS: 36415; 70450; 80053; 81000; 84439; 84443; 85025; 86141; 87077; 87088

== ENCOUNTER 2019-11-11 09:59 | Emergency (ER) | payer MEDICARE ==
[~2019-11-11] VITALS: Ht 172 cm; Wt 91.0 kg
[~2019-11-11 09:59] MED LIST changes: +LEVO750T9 PO
--- NOTE | 2019-11-11 10:35 | ED Lower Extremity ---
General Chief Complaint: Lower Extremity Stated Complaint: L LEG CRAMP Nursing Triage Note: PT CO OF L LOWER LEG CRAMPING FOR APPROX 5 DAYS, PT L CALF SL LARGER THAN R CALF, STATES HAS PAIN 09/03 Nursing Sepsis Screen: No Definite Risk Source: patient, old records Exam Limitations: no limitations History of Present Illness Date Seen by Provider: Nov 11, 2019 Time Seen by Provider: 10:08 Initial Comments This 84-year-old gentleman presents to the emergency room with complaints of pain and swelling in the left calf worsening over the past week. He is not on any blood thinner medications. His who is a nurse was concerned about DVT. Pain is worse with pressure or weightbearing. He describes no chest pain or shortness of breath. Allergies and Home Medications Allergies Coded Allergies: NKANo Known Allergies (Verified Allergy, Mild, 11/24/11) Uncoded Allergies: BEE STINGS (Allergy, Severe, SOA/HIVES, 11/01/10) Home Medications Acetaminophen 325 Mg Capsule, 650 MG PO Q6H PRN for PAIN-MILD (1-4), (Reported) Aspirin 81 Mg Tablet.dr, 81 MG PO TuSa, (Reported) Calcium Carbonate/Vitamin D3 1 Each Tablet, 1 TAB PO BID, (Reported) Diltiazem HCl 90 Mg Tablet, 90 MG PO HS, (Reported) Docusate Sodium 100 Mg Capsule, 100 MG PO DAILY, (Reported) Gemfibrozil 600 Mg Tablet, 600 MG PO DAILY, (Reported) Isosorbide Mononitrate 30 Mg Tab.er.24h, 30 MG PO DAILY, (Reported) Levothyroxine Sodium 50 Mcg Tablet, 50 MCG PO DAILY, (Reported) Lisinopril 5 Mg Tablet, 2.5 MG PO HS, (Reported) Loratadine/Pseudoephedrine 1 Each Tab.er.12h, 1 EACH PO Q12H PRN for CONGESTION, (Reported) Multivitamin 1 Each Tablet, 1 TAB PO DAILY, (Reported) Omeprazole 40 Mg Capsule.dr, 40 MG PO DAILY, (Reported) Ondansetron 4 Mg Tab.rapdis, 4 MG PO Q6H PRN for NAUSEA/VOMITING, (Reported) Pramipexole Di-HCl 0.25 Mg Tablet, 0.25 MG PO DAILY, (Reported) Rosuvastatin Calcium 20 Mg Tablet, 20 MG PO HS, (Reported) Temazepam 30 Mg Capsule, 30 MG PO HS, (Reported) Tramadol HCl 50 Mg Tablet, 50 MG PO Q6H PRN for PAIN-MODERATE (5-7), (Reported) [[place]/Zinc/Turmeric] , 1 CAP PO BID, (Reported) Patient Home Medication List Home Medication List Reviewed: Yes Review of Systems Constitutional: no symptoms reported EENTM: no symptoms reported Respiratory: no symptoms reported Cardiovascular: no symptoms reported Gastrointestinal: no symptoms reported Genitourinary: no symptoms reported Musculoskeletal: see HPI Skin: no symptoms reported Psychiatric/Neurological: No Symptoms Reported Past Oxvsygv-Dchqsu-Kqpnas Hx Past Med/Social Hx: Reviewed Nursing Past Med/Soc Hx Patient Social History Alcohol Use: Denies Use Recreational Drug Use: No Smoking Status: Former Smoker Former Smoker, Quit: Jun 07, 1974 2nd Hand Smoke Exposure: No Recent Foreign Travel: No Contact w/Someone Who Travel: No Recent Infectious Disease Expo: No Recent Hopitalizations: No Physical Abuse: No Sexual Abuse: No Immunizations Up To Date Tetanus Booster (TDap): Unknown Date of Pneumonia Vaccine: Feb 03, 2015 Date of Influenza Vaccine: Jan 12, 2019 Seasonal Allergies Seasonal Allergies: Yes Past Medical History Surgeries: Yes (LEFT WRIST, LEFT KNEE SCOPE, TOTAL LEFT KNEE, HEMORRHOIDS,TURP ) Abdominal, Bladder Surgery, CABG, Coronary Stent, Joint Replacement, Nephrectomy Respiratory: No Currently Using CPAP: No Currently Using BIPAP: No Cardiac: Yes (STENTS X5) Coronary Artery Disease, Heart Attack, High Cholesterol Neurological: No Reproductive Disorders: No Sexually Transmitted Disease: No HIV/AIDS: No Genitourinary: Yes (urostomy) Prostate Problems Gastrointestinal: Yes (colostomy) Obstructive Bowel Musculoskeletal: Yes Arthritis Endocrine: No Hearing Impairment: Denies, Hearing Aide Right, Hearing Aide Left Cancer: Yes (NOSE) Bladder, Prostate Psychosocial: No Integumentary: No Blood Disorders: No Adverse Reaction/Blood Tranf: No Family Medical History Reviewed Nursing Family Hx Arthritis 19 FATHER 19 MOTHER Diabetes mellitus 19 FATHER Myocardial infarction 19 FATHER 19 MOTHER Respiratory disorder G8 SISTER No Family History of: AIDS Worcester's disease Alcoholism Alzheimer's disease Cancer of mouth Colon cancer Completed stroke Dementia Kidney disease Parkinson's disease Prostate cancer Psychosocial problem Seizure disorder Severe allergy Thyroid disease Tuberculosis No Pertinent Family Hx Physical Exam Vital Signs Vital Signs - First Documented 11/11/19 10:00 Temp 36.5 Pulse 79 Resp 18 B/P (MAP) 186/87 (120) Pulse Ox 97 Capillary Refill : Less Than 3 Seconds Height, Weight, BMI Height: 5'7.00" Weight: 195lbs. 0oz. 88.012988vh; 30.00 BMI Method:Stated General Appearance: WD/WN, no apparent distress HEENT: normal ENT inspection Cardiovascular: regular rate, rhythm, no edema, no murmur Respiratory: lungs clear, normal breath sounds, no respiratory distress Legs: left leg soft tissue tenderness, left leg swelling, left leg other (left lower leg measures 2.5 cm greater in circumference than the right. 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 tested, no motor/sensory deficits, alert, normal mood/affect, oriented x 3 Skin: normal color, warm/dry Procedures/Interventions Suture Size: 4-0 Progress/Results/Core Measures Results/Orders Lab Results Laboratory Tests Test 11/11/19 11:20 Range/Units White Blood Count 5.5 4.3-11.0 10^3/uL Red Blood Count 4.52 4.35-5.85 10^6/uL Hemoglobin 13.2 L 13.3-17.7 G/DL Hematocrit 41 40-54 % Mean Corpuscular Volume 90 80-99 FL Mean Corpuscular Hemoglobin 29 25-34 PG Mean Corpuscular Hemoglobin Concent 32 32-36 G/DL Red Cell Distribution Width 15.2 H 10.0-14.5 % Platelet Count 175 130-400 10^3/uL Mean Platelet Volume 9.4 7.4-10.4 FL Sodium Level 137 135-145 MMOL/L Potassium Level 4.8 3.6-5.0 MMOL/L Chloride Level 106 98-107 MMOL/L Carbon Dioxide Level 23 21-32 MMOL/L Anion Gap 8 5-14 MMOL/L Blood Urea Nitrogen 24 H 7-18 MG/DL Creatinine 2.28 H 0.60-1.30 MG/DL Estimat Glomerular Filtration Rate 27 BUN/Creatinine Ratio 11 Glucose Level 89 70-105 MG/DL Calcium Level 8.6 8.5-10.1 MG/DL Magnesium Level 1.9 1.6-2.4 MG/DL My Orders Orders - YAW SPAULDING MD Us Venous Lower Ext Lt (11/11/19 10:12) Basic Metabolic Panel (11/11/19 11:20) Cbc No Diff (11/11/19 11:20) Magnesium (11/11/19 11:20) Vital Signs/I&O 11/11/19 10:00 Temp 36.5 Pulse 79 Resp 18 B/P (MAP) 186/87 (120) Pulse Ox 97 Blood Pressure Mean: 120 Progress Progress Note #1: Time: 11:24 Progress Note Ultrasound was negative for DVT. I offered to check electrolytes and CBC to evaluate for sources of cramping. Patient would like to have that done. Progress Note #2: Time: 12:09 Progress Note No electrolyte abnormalities or significant anemia were found on the labs. CBC was normocytic suggesting no iron deficiency. No definite cause of his pain was identified. I am suspicious he has muscle strain from a severe cramp. I discussed pain management with patient and his . See discharge instructions for this discussion. Diagnostic Imaging Diagonstic Imaging: Ultrasound Plain Films/CT/US/NM/MRI: leg Comments NAME: YORDAN HAMILTON [facility] REC#: [id number] PT STATUS: REG ER : 1935 PHYSICIAN: YAW SPAULDING MD ADMIT DATE: 11/11/19/ER Draft Date of Exam:11/11/19 US VENOUS LOWER EXT LT PROCEDURE: US left lower extremity venous. TECHNIQUE: Multiple Real-time grayscale images were obtained over the left lower extremity in various projections. Additional duplex Doppler and color Doppler images were also obtained. DATE: November 11, 2019. INDICATION: 84-year-old male, left calf pain and swelling. COMPARISON: September 08, 2008. FINDINGS: The left common femoral vein, left superficial femoral vein, and left popliteal vein are all compressible with normal blood flow and response to augmentation. The visualized portions of the deep femoral vein are patent. The posterior tibial and peroneal veins are patent. IMPRESSION: Negative for left lower extremity deep venous thrombosis. Dictated on workstation # [id number] Dict: 11/11/19 1105 Trans: 11/11/19 1108 [id number] Interpreted by: RONEY TAYLOR MD Departure Impression Primary Impression: Left leg pain Additional Impression: Left leg swelling Disposition: 01 HOME, SELF-CARE Condition: Stable Departure-Patient Inst. Decision time for Depature: 12:06 Referrals: BLAKE BOYCE MD (PCP/Family) Primary Care Physician Patient Instructions: Muscle Strain Add. Discharge Instructions: The exact cause of your pain and swelling is uncertain. It may be related to muscle strain caused by a cramp. You may perform gentle stretching to help keep the muscles relaxed. Icing for a day or two in 20 minute intervals may be helpful to reduce pain. You may then use gentle heat if it is helpful to keep the muscles relaxed. If you need more pain control, you may add in 25-50 mg of Ultram (tramadol) up to every 6 hours as needed. For more severe pain, you may use the hydrocodone you have at home. Call your doctor or return to care if you have worsening symptoms or if you're not improving as expected. All discharge instructions reviewed with patient and/or family. Voiced understanding. Copy Copies To 1: BLAKE BOYCE MD, JOSHUA T MD Nov 11, 2019 10:34
--- OUTSIDE RECORDS SUMMARY | 2019-11-11 10:49 | XMS REPORT | Clinical Summary ---
Author Author [facility] Organization [facility] Address Unknown Phone Unavailable Care Team Providers Care Engraver Automatic Name Role Phone Cory Amaro MD Unavailable [phone] Min Lindsey MD PCP Karen Aguirre RN Unavailable Unavailable Alfredo Everett MD Unavailable Jazmine Germain RN Unavailable Unavailable Kit Tian MD Unavailable Dinorah Khan RN Unavailable Unavailable Source Comments Some departments are not documenting in the electronic medical record. If you d o not see the information that you expected, contact Release of Information in Critical access hospital Information Management department at [phone] for further assistan ce in locating additional records.[facility] Allergies Comments Active Allergy Reactions Severity [...] 6 hours as needed. Active Ostomy Supplies [facility] Use 10 Units 10 Each 99 07/26 [...] co nduit on 08/10 with final pathology [id number] UCC and [id number] [place] 3 + 4 prostate cancer with left [...] Stage Unknown (T3a, NX, cM0, PSA: Unknown, [place] 7) - Signed by Ariadna Weaver APRN-NP [...] cystoscopy, TURBT - high grade noninvasive UCC (plant safety leader) - No BCG or mitomycin (patient elected [...] Not on file Last Filed Vital Signs Reading Time Taken Comments Vital Sign 194/54 04/30/2019 7:43 AM TIRE MOLDER Blood Pressure 77 04/30/2019 7:43 AM TIRE MOLDER Pulse 36.4 C (97.5 F) 04/30/2019 7:43 AM TIRE MOLDER Temperature - - Respiratory Rate 96% 04/30/2019 7:43 AM TIRE MOLDER Oxygen Saturation - - Inhaled Oxygen Concentration 87.9 kg (193 lb 12.8 oz) 04/24/2019 10:41 AM TIRE MOLDER Weight 165.1 cm (5' 5") 04/24/2019 10:41 AM TIRE MOLDER Height 32.25 04/24/2019 10:41 AM TIRE MOLDER Body Mass Index Plan of Treatment Health [...] Area Manufactur er Left Knee Knee 06/14/2019 [id number] / NA / NA Set Stent 75cm 7fr Migration Specialist .038in COOK GRP 5mm Pigtail Curve Ureter COOK Implanted: Qty: 1 on 08/10/2016 by Cory Amaro MD at [facility] 02/01/2022 [id number] / [id number] / [id number] Set Stent 75cm 7fr .038in 5mm COOK Pigtail Curve Ureteral - [id number] MEDICAL Implanted: Qty: 1 on 04/24/2019 by INC Cory Amaro MD at [facility] 08/24/2021 [id number] / [id number] / [id number] Barrier Adhesion 3x5in Procedure SANOFI-AVE Pack Bioresorbable Membrane - NTIS US [id number] Implanted: Qty: 1 on 04/24/2019 by Cory Amaro MD at [facility] Results Not on filefrom Last 3 Months Insurance Type Payer Benefit Subscriber ID Effective Phone Address Plan / Dates Group Medicare MEDICARE MEDICARE [id number] 1999-P PART A AND resent B PPO [employer] [id number] resent -[id number] Advance 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
--- OUTSIDE RECORDS SUMMARY | 2019-11-11 10:50 | XMS REPORT | Encounter Summary ---
Author Author [facility] Organization [facility] Address Unknown Phone Unavailable Care Team Providers Care Application Developer Name Role Phone Cory Amaro MD Unavailable [phone] Min Lindsey MD PCP Karen Aguirre RN Unavailable Unavailable Alfredo Everett MD Unavailable Jazmine Germain RN Unavailable Unavailable Kit Tian MD Unavailable Dinorah Khan RN Unavailable Unavailable Reason for Referral * Radiology Services (Routine) Referred By Contact Referred To Contact Status Reason Specialty Diagnoses / Procedures Cory Amaro MD [address] [place] [address] New Request Radiology Diagnoses Malignant neoplasm of overlapping sites of bladder (HCC) P rocedures CT ABD/PELV WO CONTRAST Encounter Details Care Team Description Date Type Department Cory Amaro MD [address] [place] [address] Malignant neoplasm of overlapping sites of bladder (HCC) (Primary Dx) 06/07/2019 Orders Only [facility] [address] [place] [address] [place] [address] Social History Date Tobacco Use Types Packs/Day Years Used Quit: 03/27/1974 Former Smoker Cigarettes, 1.5 20 Cigars Smokeless Tobacco: Never Used Drinks/Week oz/Week Comments Alcohol Use No Sex Assigned at Date Recorded Not on file documented as of this encounter Functional Status [...] Fruits and Vegetables Diet No 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
--- OUTSIDE RECORDS SUMMARY | 2019-11-11 10:50 | XMS REPORT | Encounter Summary ---
Author Author [facility] Organization [facility] Address Unknown Phone Unavailable Care Team Providers Care Hat Sprayer Name Role Phone Cory Amaro MD Unavailable [phone] Min Lindsey MD PCP Karen Aguirre RN Unavailable Unavailable Alfredo Everett MD Unavailable Jazmine Germain RN Unavailable Unavailable Kit Tian MD Unavailable Dinorah Khan RN Unavailable Unavailable Reason for Visit * Reason Onset Date Comments Appointment Question 06/06/2019 Encounter Details Care Team Description Date Type Department Cory Amaro MD [address] [place] [address] Appointment Question 06/06/2019 Telephone [facility] [address] [place] [address] [place] [address] Social History Date Tobacco Use [...] Miscellaneous Notes * Telephone Encounter - Brooke Stone RN - 06/06/2019 9:25 AM CDT Patient's calling with concerns regarding the patient's upcoming appointmen t with Dr. Amaro tomorrow at 2 pm. 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
--- OUTSIDE RECORDS SUMMARY | 2019-11-11 10:50 | XMS REPORT ---
Author Author Department [facility] YORDAN sanders Organization Department [facility] Address [address] [place] [address] Phone Unavailable Care Team Providers Care Dry Wall Installer Name Role Phone HEIKE MALLORIE PCP Unavailable [...] MEDICARE SUPPLEMENT Sep 24, 2002 PLAN F [id number] [phone] YORDAN HAMILTON PATIENT MEDICARE (WNR) MEDICARE (M) PART B Mar 27, 2001 PART B [id number] [phone] YORDAN HAMILTON JR PATIENT MEDICARE (WNR) MEDICARE (M) PART A May 26, 1999 PART A [id number] [phone] YORDAN HAMILTON JR PATIENT Selected Encounter This section includes the information on record at [place] for the Encounter. Date/Time Encounter Type Encounter Description Reason Provider Source August 13, 2019 08:00 AM Outpatient Encounter ADMIN PAT ACTIVTIES (MASNO NCT) [facility] 15 IHE Encounter Template Text not used by [place] Assessments - Encounter Diagnoses No Data Provided [...] Adverse Reactions (ADR s) on record with [place] for the patient. The data comes from a ll [place] treatment facilities. It does not list Allergies/ADRs that were removed or entered in error. Some allergies/ADRs may be reported in t he Immunization section. Allergen Event Date Event Type Reaction(s) Severity Source No Known Allergies [facility], [facility] 15 Medications: VA dispensed (-15 months) and Non-VA Documented (Obtained Outside A) Section Date Range: 1) prescriptions processed by a [place] pharmacy in the last 15 m ont, and 2) all medications recorded in the [place] medical record as "non-VA medic ations". Pharmacy terms refer to [place] pharmacy's work on prescriptions. [place] patient s are advised to take their medications as instructed by their health care team. The data comes from all [place] treatment facilities. Glossary of Pharmacy Terms:Active = A prescription that can be filled at the local [place] pharmacy.Active: On Hold = An active prescription that will not be filled until pharmacy resolves the issue.Active: Susp = An active prescription that is not scheduled to be filled yet.Clinic Order = A medication received during a visit to a [place] clinic or emergency department (currently not available).Discontinued [...] Pharmacy for review and is not ready yet.Transferred = A prescription moved to [place]'s new electronic health record. Take your medications as prescribed by your health care team. Medication Name and Strength Pharmacy Term Instructions Quantity Or dered Prescription Expires Prescription Number Last Dispense Date Ordering Provider Facility ASPIRIN 81MG TAB,EC Non- VA TAKE ONE TABLET BY MOUTH ONCE A DAY Non-VA Documented by: ROSALBA BAUGH nted at: [facility] BUDESONIDE 80MCG/FORMOTEROL FUM 4.5MCG/SPRAY INHL,ORAL ,10.2GM Non-VA INHALE 2 PUFFS BY ORAL INHALATION THREE TIMES A DAY NEEDED Non-V A Documented by: ROSALBA BAUGH nted at: [facility] CALCIUM CITRATE 315MG/VITAMIN D 200UNT TAB Non-VA TAKE ONE TABLET BY MOUTH TWO TIMES A DAY Non-VA Documented by: ROSALBA BAUGH nted at: [facility] CLOPIDOGREL BISULFATE 75MG [...] by: ROSALBA BAUGH nted at: [facility] FUROSEMIDE 40MG TAB Non- VA TAKE [...] problems (conditions). The data comes from all [place] treatment facilities. Problem Status Problem Code Date of Onset Date of Resolution Comm ent(s) Provider Source Bilateral tinnitus (SNOMED CT 2012455913491) Active 8950310591965 LAMAR MARTIN [facility] Bladder cancer Active 600881162 KAIN WHITLOCK [facility] Chronic kidney disease stage 3 Active 201362631 KAIN WHITLOCK [facility] History of percutaneous transluminal coronary angioplasty Active 087366576 AMAURIROSALBA [facility] HTN - Hypertension ([facility] [id number]) Active 01861046 AMAURIROSALBA CORONA [facility] Hyperlipidemia Active 71835270 [facility] Hypothyroidism Active 48571993 KAIN WHITLOCK [facility] Impotence of organic origin Active 330665435 KAIN VENTURA [facility] Sensorineural hearing loss, bilateral Active 931890714 MIKKI FRITZ [facility] Arthritis * (ICD-9-CM 716.90) Inactive 716.90 NovSep 18, 2007 Entered By: KAIN WHITLOCK Comment: knees bilatSep 15, 2008 Entered By: KAIN WHITLOCK Comment: left knee "scrapped" in 2007 MALLORIE BURROUGHS [facility] CAD * (ICD-9-CM 414.9) Inactive 414.9 Dec 15, 2017 ASK DEVEN SERRANO [facility] HYPERLIPIDEMIA NEC/NOS 272.4 Inactive 272.4 Dec 15 18 ENRIQUE SMALLWOOD [facility] HYPERTENSION NOS 401.9 Inactive 401.9 Dec 15, 2017 SO WILLYENRIQUE [facility] 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 KAIN WHITLOCK [facility] Hypothyroidism Inactive 244.9 Dec 15, 2017 [facility]AIN WH[facility]LOCK [facility] IMPAIRED FASTING GLUCOSE. Inactive 799.9 Dec 15, 2017 KAIN WHITLOCK [facility] Knee Joint replacement Status (Prosthetic or Artificial Device) Inactive V43.65 Dec 15, 2017 Jan 17, 2012 Entered By: KAIN BAI Comment: left. juancarlos ceron,dana.- oct [facility] Personal History of Tobacco Use Inactive V15.82 Dec 15, 2017 July 27, 2006 Entered By: KAIN WHITLOCK Comment: quit smoking in yr 1999 after cabg [facility] Postsurgical Aortocoronary Bypass Status Inactive V45.81 Dec 15, 2017 July 27, 2006 Entered By: KAIN WHITLOCK Comment: in 1999, [facility], [place].Sep 15, 2008 Entered By: KAIN WHITLOCK Comment: ptca september 12, mn-ecru,il. [facility] Postsurgical Percutaneous Transluminal Coronary Angioplasty Status Inactive V45.82 Dec 15, 2017 Dec 01, 2010 Entered By: KAIN WHITLOCK Comment: /2011. dr woodward. promus drug eluting stent KAIN WHITLOCK [facility] Sensorineural Hearing Loss * (ICD-9-CM 389.10) Inactive 389.10 Dec 15, 2017 [facility] Tinnitus * (ICD-9-CM 388.30) Inactive 388.30 Dec 15, 2017 WHITLOCKKAIN SANCHEZ [facility] Radiology Reports: +/- 30 days of [...] LOCAL TITLE: COMMUNITY CARE CONSULT RESULTS NOTE ID STANDARD TITLE: NONVA CONSULT DATE OF NOTE: AUGUST 13, 2019@08:00 ENTRY DATE: AUGUST 23, 2019@13:27:02 AUTHOR: VEENA LOVETT EXP COSIGNER: URGENCY: STATUS: COMPLETED The following Non VA Care consult has been completed. See scanned document for report. NON VA Care Consult Results Audiology Comment: [facility]08-13-2019 /evelyne/ VEENA LOVETT AMSA Signed: 08/23/2019 13:27 [facility]
--- OUTSIDE RECORDS SUMMARY | 2019-11-11 10:50 | XMS REPORT | Encounter Summary ---
Author Author [facility] YORDAN sanders Organization Department of [facility] Address [address] [place] [address] Phone Unavailable Care Team Providers Care Unit Aid Name Role Phone MALLORIE BURROUGHS PCP Unavailable [...] MEDICARE SUPPLEMENT Sep 24, 2002 PLAN F [id number] [phone] YORDAN HAMILTON PATIENT MEDICARE (WNR) MEDICARE (M) PART B Mar 27, 2001 PART B [id number] [id number] [phone] YORDAN HAMILTON JR PATIENT MEDICARE (WNR) MEDICARE (M) PART A May 26, 1999 PART A [id number] [id number] [phone] YORDAN HAMILTON JR PATIENT Selected Encounter This section includes the information on record at [place] for the Encounter. Date/Time Encounter Type Encounter Description Reason Provider Source Dec 14, 2018 08:30 AM Outpatient Encounter PRIMARY CARE/MEDICINE [facility] 15 E Encounter Template Text not used by [place] Assessments - Encounter Diagnoses No Data Provided [...] Hematology Lab R esults on record with [place] for the patient. Radiology Reports and Pathology Report s are provided separately, in subsequent sections. Lab Results This section contains the Chemistry/Hematology Results tristian t were resulted 30 days before or 30 days after the date of the Encounter. Date/Time Source Result Type Result - Unit Interpretation Reference Range Comment Dec 03, 2018 09:20 AM [facility] CBC & DIFF Specimen T ype: BLOOD Comment: Manual diff performed. 12/03/18 Ordering Provider: ROSALBA BAUGH Report Released Date/Time: Nov 30, 2018 09:23 AM WBC 5.6 K/cmm 3.60-11.20 RBC 4.62 M/ul [...] % 11.8-15.1 Dec 03, 2018 09:20 AM [facility] COMPREHENSIVE METABOLIC PA CARL Specimen Type: PLASMA No comment entered. Ordering Provider: ROSALBA BAUGH Report Released Date/Time: Nov 30, 2018 09:23 AM *CREATININE 1.37 mg/dL H 0.7-1.3 UREA NITROGEN [...] EGFR 49.5 Dec 03, 2018 09:20 AM [facility] LIPID PROFILE(HDL,TRIG,CHO L,LDL) Specimen Type: PLASMA No comment entered. Ordering Provider: ROSALBA BAUGH Report Released Date/Time: Nov 30, 2018 09:23 AM CHOLESTEROL 144 mg/dL 0-200 TRIGS 147 mg/dL 0-150 HDL-CHOLESTEROL 37 mg/dL L >40 LDL (CALC) 78 mg/dL 0-99.9 Dec 03, 2018 09:20 AM [facility] PROSTATIC SPECIFIC ANTIGEN (TOTAL) Specimen Type: SERUM No comment entered. Ordering Provider: ROSALBA BAUGH Report Released Date/Time: Nov 30, 2018 09:23 AM PROSTATIC SPECIFIC ANTIGEN(TOTAL) 0.0 ng/mL 0-4 Dec 03, 2018 09:20 AM [facility] TSH Specimen T ype: SERUM No comment entered. Ordering Provider: ROSALBA BAUGH Report Released Date/Time: Nov 30, 2018 09:23 AM TSH 2.80 uIU/mL 0.47-5.00 Vital Signs: All [...] Adverse Reactions (ADR s) on record with [place] for the patient. The data comes from a ll [place] treatment facilities. It does not list Allergies/ADRs that were removed or entered in error. Some allergies/ADRs may be reported in t Immunization section. Allergen Event Date Event Type Reaction(s) Severity Source No Known Allergies [facility], VISN 15 Medications: VA dispensed (-15 months) and Non-VA Documented (Obtained Outside A) Section Date Range: 1) prescriptions processed by a VA pharmacy in the last 15 m [facility], and 2) all medications recorded in the [place] medical record as "non-VA medic ations". Pharmacy terms refer to [place] pharmacy's work on prescriptions. VA patient s are advised to take their medications as instructed by their health care team. The data comes from all [place] treatment facilities. Glossary of Pharmacy Terms:Active = A prescription that can be filled at the local VA pharmacy.Active: On Hold = An active prescription that will not be filled until pharmacy resolves the issue.Active: Susp = An active prescription that is not scheduled to be filled yet.Clinic Order = A medication received during a visit to a [place] clinic or emergency department (currently not available).Discontinued [...] other providers that was filled outside the [place]. Or, it may be an over the counter (OTC), herbal, dietary supplement or sample medication.Pending = This prescription order has been sent to the Pharmacy for review and is not ready yet.Transferred = A prescription moved to [place]'s new electronic health record. Take your medications [...] by: ROSALBA BAUGH nted at: [facility] FUROSEMIDE 40MG TAB Non- VA TAKE ONE TABLET BY MOUTH EVERY MORNING NEEDED Non-VA Docume nted by: ROSALBA BAUGH [facility] GEMFIBROZIL 600MG TAB No n-VA TAKE ONE TABLET BY MOUTH TWO TIMES A DAY BEFORE MEALS Non-VA Documented by: ROSALBA BAUGH [facility] LEVOTHYROXINE NA 0.05MG TAB (SYNTHROID) Non-VA TAKE ONE TABLET BY MOUTH EVERY MORNING BEFORE MEAL Non-VA Documented by: ROSALBA BAUGH nted at: [facility] LISINOPRIL 5MG TAB Non- VA TAKE ONE-HALF TABLET BY MOUTH EVERY MORNING Non-VA Documented by: ROSALBA BAUGH nted at: [facility] LORATADINE 10MG TAB Non- VA TAKE ONE TABLET BY MOUTH QDAY PRN Non-VA Documented by: ROSALBA BAUGH nted at: [facility] MAGNESIUM OXIDE 400MG TAB Non-VA TAKE ONE TABLET BY MOUTH ONCE A DAY Non-VA Documented by: ROSALBA BAUGH nted at: [facility] MELATONIN 1MG CAP/TAB No n-VA TAKE 10 CAP/TABS BY MOUTH AT BEDTIME Non-VA Documented by: ROSALBA BAUGH nted at: [facility] MELOXICAM 15MG TAB Non- VA TAKE ONE TABLET BY MOUTH ONCE A DAY NEEDED Non-VA Documented by: ROSALBA BAUGH nted at: [facility] POTASSIUM CHLORIDE 20MEQ TAB,SA (DISPERSIBLE) Non-VA TAKE ONE-HALF TABLET BY MOUTH EVERY MORNING NEEDED Non-VA Documented by: ROSALBA BAUGH nted at: [facility] ROSUVASTATIN CA 40MG TAB Non-VA TAKE ONE- HALF TABLET BY MOUTH AT BEDTIME Non-VA Docume nted by: ROSALBA BAUGH nted at: [facility] SENNOSIDES 8.6MG TAB Non -VA TAKE ONE TABLET BY MOUTH THREE TIMES A DAY Non-VA Documented by: ROSALBA BAUGH nted at: [facility] TEMAZEPAM 15MG CAP Non- VA TAKE 1 [...] problems (conditions). The data comes from all [place] treatment facilities. Problem Status Problem Code Date of Onset Date of Resolution Comm ent(s) Provider Source Bilateral tinnitus (SNOMED CT 7346416993989) Active [id number] LAMAR MARTIN [facility] Bladder cancer Active 105356815 KAIN WHITLOCK [facility] Chronic kidney disease stage 3 Active 472071507 KAIN WHITLOCK [facility] History of percutaneous transluminal coronary angioplasty Active 955534736 RANDALIAROSALBA [facility] HTN - Hypertension (SCT 69273058) Active 15930789 RANDALIAROSALBA [facility] Hyperlipidemia Active 40354608 KAIN WHITLOCK [facility] Hypothyroidism Active 14525036 KAIN WHITLOCK [facility] Impotence of organic origin Active 642042647 KAIN VENTURA [facility] Sensorineural hearing loss, bilateral Active 040083688 MIKKI FRITZ [facility] Arthritis * (ICD-9-CM 716.90) Inactive 716.90 NovSep 18, 2007 Entered By: KAIN WHITLOCK Comment: knees bilatJun 2008 Entered By: KAIN WHITLOCK Comment: left knee "scrapped" in 2007 MALLORIE BURROUGHS [facility] CAD * (ICD-9-CM 414.9) Inactive 414.9 Dec 15, 2017 ASK DEVEN SERRANO [facility] HYPERLIPIDEMIA NEC/NOS 272.4 Inactive 272.4 Dec 15 ENRIQUE [facility] HYPERTENSION NOS 401.9 Inactive 401.9 Dec 15, 2017 SO ENRIQUE AGUILERA [facility] 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 KAIN WHITLOCK [facility] Hypothyroidism Inactive 244.9 Dec 15, 2017 KAIN WHITLOCK [facility] IMPAIRED FASTING GLUCOSE. Inactive 799.9 Dec 15, 2017 KAIN WHITLOCK [facility] Knee Joint replacement Status (Prosthetic or Artificial Device) Inactive V43.65 Dec 15, 2017 Jan 17, 2012 Entered By: KAIN BAI Comment: left. juancarlos ceron mo.- oct KAIN WHITLOCK [facility] Personal History of Tobacco Use Inactive V15.82 Dec 15, 2017 July 27, 2006 Entered By: KAIN WHITLOCK Comment: quit smoking in 1999 after cabg KAIN WHITLOCK [facility] Postsurgical Aortocoronary Bypass Status Inactive V45.81 Dec 15, 2017 July 27, 2006 Entered By: KAIN WHITLOCK Comment: in 1999, [facility], [place]Sep 15, 2008 Entered By: KAIN WHITLOCK Comment: [facility] september 12, [place] KAIN WHITLOCK [facility] Postsurgical Percutaneous Transluminal Coronary Angioplasty Status Inactive V45.82 Dec 15, 2017 Dec 01, 2010 Entered By: KAIN WHITLOCK Comment: /2011. dr woodward. promus drug eluting stent KAIN WHITLOCK [facility] Sensorineural Hearing Loss * (ICD-9-CM 389.10) Inactive 389.10 Dec 15, 2017 KAIN WHITLOCK [facility] Tinnitus * (ICD-9-CM 388.30) Inactive 388.30 Dec 15, 2017 KAIN WHITLOCK [facility] Radiology Reports: +/- 30 days of the encounter No Data Provided for This Section Pathology Reports: +/- 30 days of the encounter No Data Provided for This Section Encounter Notes: All associated encounter notes No Data Provided for This Section
--- OUTSIDE RECORDS SUMMARY | 2019-11-11 10:50 | XMS REPORT | Encounter Summary ---
Author Author [facility] YORDAN sanders Organization Department of [facility] Address [address] [place] [address] Phone Unavailable Care Team Providers Care Poolroom Table Attendant Name Role Phone MALLORIE BURROUGHS PCP Unavailable [...] MEDICARE SUPPLEMENT Sep 24, 2002 PLAN F [id number] [phone] YORDAN HAMILTON PATIENT MEDICARE (WNR) MEDICARE (M) PART B Mar 27, 2001 PART B [id number] YORDAN HAMILTON JR PATIENT MEDICARE (WNR) MEDICARE (M) PART A May 26, 1999 PART A [id number] [id number] [phone] YORDAN HAMILTON JR PATIENT Selected Encounter This section includes the information on record at [place] for the Encounter. Date/Time Encounter Type Encounter Description Reason Provider Source May 07, 2019 10:30 AM Outpatient Encounter COMMUNITY CARE CONSULT [facility] IHE Encounter Template Text not used by [place] Assessments - Encounter Diagnoses No Data Provided [...] appointme nts. The data comes from all [place] treatment facilities. Appointment Date/Time Appointment Type Appointment [...] patient. The data comes from a ll [place] treatment facilities. It does not list Allergies/ADRs that were removed or entered in error. Some allergies/ADRs may be reported in t he Immunization section. Allergen Event Date Event Type Reaction(s) Severity Source No Known Allergies [facility], V[facility]N 15 Medications: VA dispensed (-15 months) and Non-VA Documented (Obtained Outside A) Section Date Range: 1) prescriptions processed by a [place] pharmacy in the last 15 m [facility], and 2) all medications recorded in the [place] medical record as "non-VA medic ations". Pharmacy terms refer to [place] pharmacy's work on prescriptions. [place] patient s are advised to take their medications as instructed by their health care team. The data comes from all [place] treatment facilities. Glossary of Pharmacy Terms:Active = A prescription that can be filled at the local [place] pharmacy.Active: On Hold = An active prescription that will not be filled until pharmacy resolves the issue.Active: Susp = An active prescription that is not scheduled to be filled yet.Clinic Order = A medication received during a visit to a [place] clinic or emergency department (currently not available).Discontinued [...] ready yet.Transferred = A prescription moved to [place]'s new electronic health record. Take your medications [...] problems (conditions). The data comes from all [place] treatment facilities. Problem Status Problem Code Date of Onset Date of Resolution Comm ent(s) Provider Source Bilateral tinnitus (SNOMED CT [id number]) Active 1302591530220 LAMAR MARTIN [facility] Bladder cancer Active 300917924 KAIN WHITLOCK [facility] D[facility]oder[facility] Chronic kidney disease stage 3 Active 479157046 KAIN WHITLOCK [facility] DORALRoderick [facility] History of percutaneous transluminal coronary angioplasty Active 584521660 IUKAROSALBA [facility] HTN - Hypertension (SCT 94715344) Active 36274692 [facility] Hyperlipidemia Active 90098440 KAIN WHITLOCK [facility] Hypothyroidism Active 21203495 KAIN WHITLOCK [facility] Impotence of organic origin Active 407196512 KAIN VENTURA [facility] Sensorineural hearing loss, bilateral Active 245470687 MIKKI FRITZ [facility] Arthritis * (ICD-9-CM 716.90) Inactive 716.90 NovSep 18, 2007 Entered By: KAIN WHITLOCK Comment: knees bilatJun 2008 Entered By: KAIN WHITLOCK Comment: left knee "scrapped" in 2007 MALLORIE BURROUGHS [facility] CAD * (ICD-9-CM 414.9) Inactive 414.9 Dec 15, 2017 ASK DEVEN SERRANO [facility] HYPERLIPIDEMIA NEC/NOS 272.4 Inactive 272.4 Dec 15 ENRIQUE SMALLWOOD 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 KAIN WHITLOCK [facility] Hypothyroidism Inactive 244.9 Dec 15, 2017 WHITLOCKKAIN [facility] IMPAIRED FASTING GLUCOSE. Inactive 799.9 Dec 15, [...] WHITLOCK Comment: in 1999, [facility], [place], [place]Sep 15, 2008 Entered By: KAIN WHITLOCK Comment: [facility] september 12, [place] KAIN WHITLOCK [facility] [...] Inactive 388.30 Dec 15, 2017 [facility] Radiology Reports: +/- 30 days of the encounter No Data Provided for This Section Pathology Reports: +/- 30 days of the encounter No Data Provided for This Section Encounter Notes: All associated encounter notes No Data Provided for This Section
--- OUTSIDE RECORDS SUMMARY | 2019-11-11 10:50 | XMS REPORT | Encounter Summary ---
Author Author [facility] Organization [facility] Address Unknown Phone Unavailable Care Team Providers Care Gi Technician Name Role Phone Cory Amaro MD Unavailable [phone] Min Lindsey MD PCP Karen Aguirre RN Unavailable Unavailable Alfredo Everett MD Unavailable Jazmine Germain RN Unavailable Unavailable Kit Tian MD Unavailable Dinorah Khan RN Unavailable Unavailable Reason for Visit * Reason Onset Date Comments Follow-up Phone Call 06/07/2019 Encounter Details Care Team Description Date Type Department Cory Amaro MD [address] [place] [address] Follow-up Phone Call 06/07/2019 Telephone [facility] [address] [facility] [address] [place] [address] Social History Date Tobacco Use [...] "couple" of UTI's treated by local physician [place] removed and labs checked by local physician She states everything is good They will contact us with any problems documented in this encounter Plan of Treatment Not on filedocumented as of this encounter Goals Goal Patient Associated Recent Progress Patient-Stat Aut hor Goal Type Problems ed? 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, skilled helper Recover from illness Hospital Yes Patrick Angel, MARIAN Note: "To heal and recover and get back to normal" documented as of this encounter Visit Diagnoses Not on filedocumented in this encounter
--- OUTSIDE RECORDS SUMMARY | 2019-11-11 10:50 | XMS REPORT | Continuity of Care Document ---
[facility] Address Unknown Phone Unavailable Care Team Providers Care Grades 1 Through 5 Teacher Name Role Phone [facility] Unavailable Unavailable Problems Combined list of all problems from all Department of Defense and [facility] facilities. It does not include entries that were removed or entered in error. Problem Status Onset Date Problem Type Date of Resolution Comments Source Bilateral tinnitus (SNOMED CT [id number]) Active Condition [facility] Bladder cancer Active Condition [facility] Chronic kidney disease stage 3 Active Condition [facility] History of percutaneous transluminal coronary angiopla sty Active Condition [facility] HTN - Hypertension (SCT [id number]) Active Condition [facility] Hyperlipidemia Active Condition [facility] Hypothyroidism Active Condition [facility] Impotence of organic origin Active Condition [facility] Sensorineural hearing loss, bilateral Active Condition [facility] Arthritis * (ICD-9-CM 716.90) Inactive Condition 12/15/2017 Sep 18, 2007 Entered By: KAIN WHITLOCK Comment: knees bilat Sep 15, 2008 Entered By: KAIN WHITLOCK Comment: left knee "scrapped" in 2007 [facility] CAD * (ICD-9-CM 414.9) Inactive Condition 12/15/2017 [facility] HYPERLIPIDEMIA NEC/NOS 272.4 Inactive Condition 12/15/2017 [facility] HYPERTENSION NOS 401.9 Inactive Condition 12/15/2017 [facility] 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 [facility] Hypothyroidism Inactive Condition 12/15/2017 [facility] IMPAIRED FASTING GLUCOSE. Inactive Condition 12/15/2017 [facility] Knee Joint replacement Status (Prostheti c or Artificial Device) Inactive Condition 12/15/2017 Jan 17, 2012 Entered By: KAIN WHITLOCK Comment: left. juancarlos ceron mo.- oct [facility] Personal History of Tobacco Use In active Condition 8 July 27, 2006 Entered By: KAIN WHITLOCK Comment: quit smoking in 1999 after cabg [facility] Postsurgical Aortocoronary Bypass Status Inactive Condition July 27, 2006 Entered By: KAIN WHITLOCK Comment: in 1999, [facility], [place]. Sep 15, 2008 Entered By: KAIN WHITLOCK Comment: [facility] september 12, [place] [facility] Postsurgical Percutaneous Transluminal C oronary Angioplasty Status Inactive Condition 12/15/2017 Dec 01, 2010 Entered By: KAIN WHITLOCK Comment: /2011. dr woodward. promus drug eluting stent [facility] Sensorineural Hearing Loss * (ICD-9-CM 389.10) Inactive Condition 8 [facility] Tinnitus * (ICD-9-CM 388.30) Inactive Condition 12/15/2017 [facility] ICD-10-CM H93.13 Tinnitus, bilateral wit h Provider Comments: Bilateral tinnitus ([facility] [id number]) active Diagnosis [facility] Medications Combined list of all outpatient medications [...] 1) all immunizations on record at all [facility] facilit ies, and 2) all available immunizations on record at Department of Defense (Do D) facilities. Some immunizations on record at [facility] may not be included. Immunization Series Date Given Administered By Site Reaction Lot Number CVX Code Drug Dental Billing Specialist Status Comments Source INFLUENZA, UNSPECIFIED FORMULATION 01/26/2016 [...] 15 PNEUMOCOCCAL, UNSPECIFIED FORMULATION 07/25/2002 109 completed [place] [facility], [facility] 15 INFLUENZA (HISTORICAL) 12/25/2001 88 completed [facility], [facility] 15 INFLUENZA, WHOLE 12/25/2001 16 completed [facility], [facility] 15 INFLUENZA (HISTORICAL) 04/04/2001 88 completed [facility] INFLUENZA, WHOLE 04/04/2001 16 completed [facility] INFLUENZA (HISTORICAL) 01/25/2001 88 completed [facility], [facility] 15 INFLUENZA, WHOLE 01/25/2001 16 completed V [facility], [facility] 15 PNEUMOCOCCAL, UNSPECIFIED FORMULATION 08/09/2000 109 completed [...] COUNT 5.6 K/cmm 3.60 - 11.20 12/03/2018 <b>Specimen Type: </b> BLOOD
<b>Comm ent: </b> Manual diff performed. 12/03/18
<b>Ordering Provider: </b> ROSALBA BAUGH
<b>Report Released Date/Time: </b>Nov 30, 2018 09:23 AM
[facility] CBC & DIFF ERYTHROCYTES [#/VOL UME] IN BLOOD BY AUTOMATED COUNT 4.62 M/ul 4.1 - 5.7 12/03/2018 <b>Specimen Type: </b> BLOOD
<b>Comm ent: </b> Manual diff performed. 12/03/18
<b>Ordering Provider: </b> ROSALBA BAUGH
<b>Report Released Date/Time: </b>Nov 30, 2018 09:23 AM
[facility] CBC & DIFF HEMOGLOBIN [MASS/VOLUME] IN BLOOD 14.6 g/dl 13.1 - 16.8 12/03/2018 <b>Specime n Type: </b> BLOOD
<b>Comment: </b> Manual diff performed. 12/03/18
<b>Ordering Provider: </b> ROSALBA BAUGH
<b>Report Released Date/Time: </b>Nov 30, 2018 09:23 AM
[facility] CBC & DIFF HEMATOCRIT [VOLUME FRACTION] OF BLOOD BY AUTOMATED COUNT 42.8 % 38.2 - 48.4 12/03/2018 <b>Specimen Type: </b> BLOOD
<b>Comm ent: </b> Manual diff performed. 12/03/18
<b>Ordering Provider: </b> ROSALBA BAUGH
<b>Report Released Date/Time: </b>Nov 30, 2018 09:23 AM
[facility] CBC & DIFF MCV [ENTITIC VOLUME] BY A UTOMATED COUNT 92.6 fl 80.1 - 98.5 12/03/2018 <b>Specime n Type: </b> BLOOD
<b>Comment: </b> Manual diff performed. 12/03/18
<b>Ordering Provider: </b> ROSALBA BAUGH
<b>Report Released Date/Time: </b>Nov 30, 2018 09:23 AM
[facility] CBC & DIFF MCH [ENTITIC MASS] BY AUT OMATED COUNT 31.6 pg 27.0 - 34.0 12/03/2018 <b>Specime n Type: </b> BLOOD
<b>Comment: </b> Manual diff performed. 12/03/18
<b>Ordering Provider: </b> ROSALBA BAUGH
<b>Report Released Date/Time: </b>Nov 30, 2018 09:23 AM
[facility] CBC & DIFF MCHC [MASS/VOLUME] BY AUT OMATED COUNT 34.1 g/dl 33.0 - 36.0 12/03/2018 <b>Specimen Type: </b> BLOOD
<b>Comment: </b> Manual diff performed. 12/03/18
<b>Ordering Provider: </b> ROSALBA BAUGH
<b>Report Released Date/Time: </b>Nov 30, 2018 09:23 AM
[facility] CBC & DIFF PLATELETS [#/VOLUME ] IN BLOOD BY AUTOMATED COUNT 175 K/cmm 150 - 400 12/03/2018 <b>Specimen Type: </b> BLOOD
<b>Comm ent: </b> Manual diff performed. 12/03/18
<b>Ordering Provider: </b> ROSALBA BAUGH
<b>Report Released Date/Time: </b>Nov 30, 2018 09:23 AM
[facility] CBC & DIFF PLATELET MEAN VOLUM E [ENTITIC VOLUME] IN BLOOD BY AUTOMATED COUNT 9.7 fl 7.5 - 11.2 12/03/2018 <b>Specimen Type: </b> BLOOD
<b>Comm ent: </b> Manual diff performed. 12/03/18
<b>Ordering Provider: </b> ROSALBA BAUGH
<b>Report Rele ased Date/Time: </b>Nov 30, 2018 09:23 AM
[facility] CBC & DIFF SEGMENTED NEUTROPHI LS/100 LEUKOCYTES IN BLOOD BY MANUAL COUNT 62 % 44 - 80 12/03/2018 <b>Specimen Type: </b> BLOOD
<b>Comm ent: </b> Manual diff performed. 12/03/18
<b>Ordering Provider: </b> ROSALBA BAUGH
<b>Report Released Date/Time: </b>Nov 30, 2018 09:23 AM
[facility] CBC & DIFF LYMPHOCYTES/100 NIESHA KOCYTES IN BLOOD BY MANUAL COUNT 14 % 20 - 40 12/03/2018 L <b>Specimen Type: </b> BLOOD
<b>Comment: </b> Manual diff performed. 12/03/18
<b>Ordering Provider: </b> ROSALBA BAUGH
<b>Report Released Date/Time: </b>Nov 30, 2018 09:23 AM
[facility] CBC & DIFF MONOCYTES/100 LEUKO CYTES IN BLOOD BY MANUAL COUNT 11 % 4 - 8 0 12/03/2018 H <b>Specimen Type: </b> BLOOD
<b>Comment: </b> Manual diff performed. 12/03/18
<b>Ordering Provider: </b> ROSALBA BAUGH
<b>Report Released Date/Time: </b>Nov 30, 2018 09:23 AM
[facility] CBC & DIFF EOSINOPHILS/100 NIESHA KOCYTES IN BLOOD BY AUTOMATED COUNT 12 % 0 - 8 12/03/2018 H <b>Specimen Type: </b> BLOOD
<b>Comm ent: </b> Manual diff performed. 12/03/18
<b>Ordering Provider: </b> ROSALBA BAUGH
<b>Report Released Date/Time: </b>Nov 30, 2018 09:23 AM
[facility] CBC & DIFF BASOPHILS/100 LEUKO CYTES IN BLOOD BY MANUAL COUNT 1 % 0 - 3 <b>Specime n Type: </b> BLOOD
<b>Comment: </b> Manual diff performed. 12/03/18
<b>Ordering Provider: </b> ROSALBA BAUGH
<b>Report Released Date/Time: </b>Nov 30, 2018 09:23 AM
[facility] CBC & DIFF ERYTHROCYTE MORPHOL OGY FINDING [IDENTIFIER] IN BLOOD YES 2018 <b>Specime n Type: </b> BLOOD
<b>Comment: </b> Manual diff performed. 12/03/18
<b>Ordering Provider: </b> ROSALBA BAUGH
<b>Report Released Date/Time: </b>Nov 30, 2018 09:23 AM
[facility] CBC & DIFF ERYTHROCYTE DISTRIB UTION WIDTH [RATIO] BY AUTOMATED COUNT 13.6 % 11.8 - 15.1 12/03/2018 <b>Specimen Type: </b> BLOOD
<b>Comm ent: </b> Manual diff performed. 12/03/18
<b>Ordering Provider: </b> ROSALBA BAUGH
<b>Report Released Date/Time: </b>Nov 30, 2018 09:23 AM
[facility] COMPREHENSIVE METABOLIC PANEL CREATININE [MASS/VOLUME] IN SERUM OR PLASMA 1.37 mg/dL 0.7 - 1.3 12/03/2018 H <b>Specimen Type: </b> PLASMA
<div>N o comment entered.
</div><b>Ordering Provider: </b> ROSALBA BAUGH
<b>Report Released Date/Time: </b>Nov 30, 2018 09:23 AM
[facility] COMPREHENSIVE METABOLIC PANEL UREA NITROGEN [MASS/VOLUME] IN SERUM OR PLASMA 23 mg/dL 9 - 25 12/03/2018 <b>Specimen Type: </b> PLASMA
<div>N o comment entered.
</div><b>Ordering Provider: </b> ROSALBA BAUGH
<b>Report Released Date/Time: </b>Nov 30, 2018 09:23 AM
[facility] COMPREHENSIVE METABOLIC PANEL GLUCOSE [MASS/VOLUME] IN SERUM OR PLASMA 112 mg/dL 72 - 99 12/03/2018 H <b>Specimen Type: </b> PLASMA
<div>N o comment entered.
</div><b>Ordering Provider: </b> ROSALBA BAUGH
<b>Report Released Date/Time: </b>Nov 30, 2018 09:23 AM
[facility] COMPREHENSIVE METABOLIC PANEL SODIUM [MOLES/VOLUME] IN SERUM OR PLASMA 139 mEq/L 136 - 145 12/03/2018 <b>Specimen Type: </b> PLASMA
<div>N o comment entered.
</div><b>Ordering Provider: </b> ROSALBA BAUGH
<b>Report Released Date/Time: </b>Nov 30, 2018 09:23 AM
[facility] COMPREHENSIVE METABOLIC PANEL POTASSIUM [MOLES/VOLUME] IN SERUM OR PLASMA 4.3 mEq/L 3.5 - 5.0 12/03/2018 <b>Specimen Type: </b> PLASMA
<div>N o comment entered.
</div><b>Ordering Provider: </b> ROSALBA BAUGH
<b>Report Released Date/Time: </b>Nov 30, 2018 09:23 AM
[facility] COMPREHENSIVE METABOLIC PANEL CALCIUM [MASS/VOLUME] IN SERUM OR PLASMA 9.9 mg/dL 8.4 - 10.4 12/03/2018 <b>Specimen Type: </b> PLASMA
<div>N o comment entered.
</div><b>Ordering Provider: </b> ROSALBA BAUGH
<b>Report Released Date/Time: <b>Nov 30, 2018 09:23 AM
[facility] COMPREHENSIVE METABOLIC PANEL PROTEIN [MASS/VOLUME] IN SERUM OR PLASMA 7.6 g/dL 6.0 - 8.6 12/03/2018 <b>Specimen Type: </b> PLASMA
<div>N o comment entered.
</div><b>Ordering Provider: </b> ROSALBA BAUGH
<b>Report Released Date/Time: <b>Nov 30, 2018 09:23 AM
[facility] COMPREHENSIVE METABOLIC PANEL ALBUMIN [MASS/VOLUME] IN SERUM OR PLASMA 4.4 g/dl 3.4 - 5.0 12/03/2018 <b>Specimen Type: </b> PLASMA
<div>N o comment entered.
</div><b>Ordering Provider: </b> ROSALBA BAUGH
<b>Report Released Date/Time: <Nov 30, 2018 09:23 AM
[facility] COMPREHENSIVE METABOLIC PANEL BILIRUBIN.TOTAL [MASS/VOLUME] IN SERUM OR PLASMA 0.5 mg/dL 0.2 - 1.2 12/03/2018 <b>Specimen Type: </b> PLASM A
<div>No comment entered.
</div><b>Ordering Provider: </b> ROSALBA BAUGH
<b>Report Released Date/Time: <>Nov 30, 2018 09:23 AM
[facility] COMPREHENSIVE METABOLIC PANEL ASPARTATE AMINOTRANSFERASE [ENZYMATIC ACTIVITY/VOLUME] IN SERUM OR PLASMA 20 U/L 5 - 34 12/03/2018 <b>Specimen Type: </b> PLASM A
<div>No comment entered.
</div><b>Ordering Provider: </b> AMAURI,ROSALBA
<b>Report Released Date/Time: </b>Nov 30, 2018 09:23 AM
[facility] COMPREHENSIVE METABOLIC PANEL ALANINE AMINOTRANSFERASE [ENZYMATIC ACTIVITY/VOLUME] IN SERUM OR PLASMA 14 U/L 8 - 40 12/03/2018 <b>Specimen Type: </b> PLASM A
<div>No comment entered.
</div><b>Ordering Provider: </b> ROSALBA BAUGH
<b>Report Released Date/Time: </b>Nov 30, 2018 09:23 AM
[facility] COMPREHENSIVE METABOLIC PANEL ANION GAP IN SERUM OR PLASMA 8.5 2018 <b>Specime n Type: </b> PLASMA
<div>No comment entered.
</div><b>Ordering Provider: </b> ROSALBA BAUGH
<b>Report Released Date/Time: </b>Nov 30, 2018 09:23 AM
[facility] COMPREHENSIVE METABOLIC PANEL CHLORIDE [MOLES/VOLUME] IN SERUM OR PLASMA 105 mEq/L 98 - 107 12/03/2018 <b>Specimen Type: </b> PLASMA
<div>N o comment entered.
</div><b>Ordering Provider: </b> ROSALBA BAUGH
<b>Report Released Date/Time: </b>Nov 30, 2018 09:23 AM
[facility] COMPREHENSIVE METABOLIC PANEL CARBON DIOXIDE, TOTAL [MOLES/VOLUME] IN SERUM OR PLASMA 25.5 mEq/L 22 - 31 12/03/2018 <b>Specimen Type: </b> PLASM A
<div>No comment entered.
</div><b>Ordering Provider: </b> ROSALBA BAUGH
<b>Report Released Date/Time: </b>Nov 30, 2018 09:23 AM
[facility] COMPREHENSIVE METABOLIC PANEL ALKALINE PHOSPHATASE [ENZYMATIC ACTIVITY/VOLUME] IN SERUM OR PLASMA 52 U/L 40 - 150 12/03/2018 <b>Specimen Type: </b> PLASM A
<div>No comment entered.
</div><b>Ordering Provider: </b> ROSALBA BAUGH
<b>Report Released Date/Time: <b>Nov 30, 2018 09:23 AM
[facility] COMPREHENSIVE METABOLIC PANEL GLOMERULAR FILTRATION RATE/1.73 SQ M.PREDICTED [VOLUME RATE/AREA] IN SERUM OR PLASMA BY CREATININE- BASED FORMULA (MDRD) 49.5 12/03/2018 <b>Specimen Type: </b> PLASMA
<div>N o comment entered.
</div><b>Ordering Provider: </b> ROSALBA BAUGH
<b>Report Released Date/Time: <b>Nov 30, 2018 09:23 AM
[facility] LIPID PROFILE(HDL,TRIG,CHOL,LDL) CHOLESTEROL [MASS/VOLUME] IN SERUM OR PLASMA 144 mg/dL 0 - 200 12/03/2018 <b>Specimen Type: </b> PLASMA
<div>N o comment entered.
</div><b>Ordering Provider: </b> ROSALBA BAUGH
<b>Report Released Date/Time: <b>Nov 30, 2018 09:23 AM
[facility] LIPID PROFILE(HDL,TRIG,CHOL,LDL) TRIGLYCERIDE [MASS/VOLUME] IN SERUM OR PLASMA 147 mg/dL 0 - 150 12/03/2018 <b>Specimen Type: </b> PLASMA
<div>N o comment entered.
</div><b>Ordering Provider: </b> ROSALBA BAUGH
<b>Report Released Date/Time: </b>Nov 30, 2018 09:23 AM
[facility] LIPID PROFILE(HDL,TRIG,CHOL,LDL) CHOLESTEROL IN HDL [MASS/VOLUME] IN SERUM OR PLASMA 37 mg/dL 12/03/2018 L <b>Specimen Type: </b> PLASMA
<div>N o comment entered.
</div><b>Ordering Provider: </b> ROSALBA BAUGH
<b>Report Released Date/Time: </b>Nov 30, 2018 09:23 AM
[facility] LIPID PROFILE(HDL,TRIG,CHOL,LDL) CHOLESTEROL IN LDL [MASS/VOLUME] IN SERUM OR PLASMA BY CALCULATION 78 mg/dL 0 - 99.9 12/03/2018 <b>Specimen Type: </b> PLASM A
<div>No comment entered.
</div><b>Ordering Provider: </b> ROSALBA BAUGH
<b>Report Released Date/Time: </b>Nov 30, 2018 09:23 AM
[facility] PROSTATIC SPECIFIC ANTIGEN(TOTAL) PROSTATE SPECIFIC AG [MASS/VOLUME] IN SERUM OR PLASMA 0.0 ng/mL 0 - 4 12/03/2018 <b>Specimen Type: </b> SERUM
<div>No comment entered.
</div><b>Ordering Provider: </b> ROSALBA BAUGH
<b>Report Released Date/Time: </b>Nov 30, 2018 09:23 AM
[facility] TSH THYROTROPIN [UNITS/VOLUME] IN SE RUM OR PLASMA 2.80 uIU/mL 0.47 - 5.00 12/03/2018 <b>Specimen Type: </b> SERUM
<div>No comment entered.
</div><b>Ordering Provider: </b> ROSALBA BAUGH
<b>Report Released Date/Time: </b>Nov 30, 2018 09:23 AM
[facility] CBC & DIFF LEUKOCYTES [#/VOLUM E] IN BLOOD BY AUTOMATED COUNT 4.7 K/cmm 3.60 - 11.20 12/15/2017 <b>Specimen Type: </b> BLOOD
<div>No comment entered.
</div><b>Ordering Provider: </b> ROSALBA BAUGH
<b>Report Released Date/Time: </b>Dec 15, 2017 11:31 AM
[facility] CBC & DIFF ERYTHROCYTES [#/VOL UME] IN BLOOD BY AUTOMATED COUNT 4.65 M/ul 4.1 - 5.7 12/15/2017 <b>Specimen Type: </b> BLOOD
<div>No comment entered.
</div><b>Ordering Provider: </b> ROSALBA BAUGH
<b>Report Released Date/Time: </b>Dec 15, 2017 11:31 AM
[facility] CBC & DIFF HEMOGLOBIN [MASS/VOLUME] IN BLOOD 14.5 g/dl 13.1 - 16.8 12/15/2017 <b>Specime n Type: </b> BLOOD
<div>No comment entered.
</div><b>Ordering Provider: </b> ROSALBA BAUGH
<b>Report Released Date/Time: </b>Dec 15, 2017 11:31 AM
[facility] CBC & DIFF HEMATOCRIT [VOLUME FRACTION] OF BLOOD BY AUTOMATED COUNT 43.2 % 38.2 - 48.4 12/15/2017 <b>Specimen Type: </b> BLOOD
<div>No comment entered.
</div><b>Ordering Provider: </b> ROSALBA BAUGH
<b>Report Released Date/Time: </b>Dec 15, 2017 11:31 AM
[facility] CBC & DIFF MCV [ENTITIC VOLUME] BY A UTOMATED COUNT 92.9 fl 80.1 - 98.5 12/15/2017 <b>Specime n Type: </b> BLOOD
<div>No comment entered.
</div><b>Ordering Provider: </b> ROSALBA BAUGH
<b>Report Released Date/Time: </b>Dec 15, 2017 11:31 AM
[facility] CBC & DIFF MCH [ENTITIC MASS] BY AUT OMATED COUNT 31.2 pg 27.0 - 34.0 12/15/2017 <b>Specime n Type: </b> BLOOD
<div>No comment entered.
</div><b>Ordering Provider: </b> ROSALBA BAUGH
<b>Report Released Date/Time: </b>Dec 15, 2017 11:31 AM
[facility] CBC & DIFF MCHC [MASS/VOLUME] BY AUT OMATED COUNT 33.6 g/dl 33.0 - 36.0 12/15/2017 <b>Specimen Type: </b> BLOOD
<div>No comment entered.
</div><b>Ordering Provider: </b> ROSALBA BAUGH
<b>Report Released Date/Time: </b>Dec 15, 2017 11:31 AM
[facility] CBC & DIFF PLATELETS [#/VOLUME ] IN BLOOD BY AUTOMATED COUNT 183 K/cmm 150 - 400 12/15/2017 <b>Specimen Type: </b> BLOOD
<div>No comment entered.
</div><b>Ordering Provider: </b> ROSALBA BAUGH
<b>Report Released Date/Time: </b>Dec 15, 2017 11:31 AM
[facility] CBC & DIFF PLATELET MEAN VOLUM E [ENTITIC VOLUME] IN BLOOD BY AUTOMATED COUNT 9.7 fl 7.5 - 11.2 12/15/2017 <b>Specimen Type: </b> BLOOD
<div>No comment entered.
</div><b>Ordering Provider: </b> ROSALBA BAUGH
<b>Report Released Date/Time: </b>Dec 15, 2017 11:31 AM
[facility] CBC & DIFF ERYTHROCYTE DISTRIB UTION WIDTH [RATIO] BY AUTOMATED COUNT 15.6 % 11.8 - 15.1 12/15/2017 H <b>Specimen Type: </b> BLOOD
<div>No comment entered.
</div><b>Ordering Provider: </b> ROSALBA BAUGH
<b>Report Released Date/Time: </b>Dec 15, 2017 11:31 AM
[facility] CBC & DIFF LYMPHOCYTES/100 NIESHA KOCYTES IN BLOOD BY AUTOMATED COUNT 15.3 % 12/15/2017 <b>Specimen Type: </b> BLOOD
<div>No comment entered.
</div><b>Ordering Provider: </b> ROSALBA BAUGH
<b>Report Released Date/Time: </b>Dec 15, 2017 11:31 AM
[facility] CBC & DIFF NEUTROPHILS/100 NIESHA KOCYTES IN BLOOD BY AUTOMATED COUNT 70.1 % 12/15/2017 <b>Specimen Type: </b> BLOOD
<div>No comment entered.
</div><b>Ordering Provider: </b> ROSALBA BAUGH
<b>Report Released Date/Time: </b>Dec 15, 2017 11:31 AM
[facility] CBC & DIFF MONOCYTES/100 LEUKO CYTES IN BLOOD BY AUTOMATED COUNT 9.6 % 12/15/2017 <b>Specimen Type: </b> BLOOD
<div>No comment entered.
</div><b>Ordering Provider: </b> ROSALBA BAUGH
<b>Report Released Date/Time: </b>Dec 15, 2017 11:31 AM
[facility] CBC & DIFF MONOCYTES [#/VOLUME ] IN BLOOD BY AUTOMATED COUNT 0.5 K/cmm 0.19 - 1.50 12/15/2017 <b>Specimen Type: </b> BLOOD
<div>No comment entered.
</div><b>Ordering Provider: </b> ROSALBA BAUGH
<b>Report Released Date/Time: </b>Dec 15, 2017 11:31 AM
[facility] CBC & DIFF NEUTROPHILS [#/VOLU ME] IN BLOOD BY AUTOMATED COUNT 3.3 K/cmm 2.10 - 8.00 12/15/2017 <b>Specimen Type: </b> BLOOD
<div>No comment entered.
</div><b>Ordering Provider: </b> ROSALBA BAUGH
<b>Report Released Date/Time: </b>Dec 15, 2017 11:31 AM
[facility] CBC & DIFF EOSINOPHILS [#/VOLU ME] IN BLOOD BY AUTOMATED COUNT 0.2 K/cmm 0.00 - 0.60 12/15/2017 <b>Specimen Type: </b> BLOOD
<div>No comment entered.
</div><b>Ordering Provider: </b> ROSALBA BAUGH
<b>Report Released Date/Time: </b>Dec 15, 2017 11:31 AM
[facility] CBC & DIFF BASOPHILS [#/VOLUME ] IN BLOOD BY AUTOMATED COUNT 0.0 K/cmm 0.00 - 0.20 12/15/2017 <b>Specimen Type: </b> BLOOD
<div>No comment entered.
</div><b>Ordering Provider: </b> ROSALBA BAUGH
<b>Report Released Date/Time: </b>Dec 15, 2017 11:31 AM
[facility] CBC & DIFF EOSINOPHILS/100 NIESHA KOCYTES IN BLOOD BY AUTOMATED COUNT 3.2 % 12/15/2017 <b>Specimen Type: </b> BLOOD
<div>No comment entered.
</div><b>Ordering Provider: </b> ROSALBA BAUGH
<b>Report Released Date/Time: </b>Dec 15, 2017 11:31 AM
[facility] CBC & DIFF BASOPHILS/100 LEUKO CYTES IN BLOOD BY AUTOMATED COUNT 0.9 % 12/15/2017 <b>Specimen Type: </b> BLOOD
<div>No comment entered.
</div><b>Ordering Provider: </b> ROSALBA BAUGH
<b>Report Released Date/Time: </b>Dec 15, 2017 11:31 AM
[facility] CBC & DIFF LYMPHOCYTES [#/VOLU ME] IN BLOOD BY AUTOMATED COUNT 0.7 K/cmm 0.77 - 4.50 12/15/2017 L <b>Specimen Type: </b> BLOOD
<div>No comment entered.
</div><b>Ordering Provider: </b> ROSALBA BAUGH
<b>Report Released Date/Time: </b>Dec 15, 2017 11:31 AM
[facility] CBC & DIFF IMMATURE GRANULOCYT ES [#/VOLUME] IN BLOOD BY AUTOMATED COUNT 0.04 K/cmm 0.00 - 0.05 12/15/2017 <b>Specimen Type: </b> BLOOD
<div>No comment entered.
</div><b>Ordering Provider: </b> ROSALBA BAUGH
<b>Report Released Date/Time: </b>Dec 15, 2017 11:31 AM
[facility] CBC & DIFF IMMATURE GRANULOCYT ES/100 LEUKOCYTES IN BLOOD BY AUTOMATED COUNT 0.9 % 12/15/2017 <b>Specimen Type: </b> BLOOD
<div>No comment entered.
</div><b>Ordering Provider: </b> ROSALBA BAUGH
<b>Report Released Date/Time: </b>Dec 15, 2017 11:31 AM
[facility] COMPREHENSIVE METABOLIC PANEL CREATININE [MASS/VOLUME] IN SERUM OR PLASMA 1.13 mg/dL 0.7 - 1.3 12/15/2017 <b>Specimen Type: </b> PLASMA
<b>Com ment: </b> For eGFR: eGFR results >60 are imprecise. Many variables affect the calculated result. Interpretation of eGFR results >60 must be monitored over time.
<b>Ordering Provider: </b> ROSALBA BAUGH
<b>Report Released Date/Time: </b>Dec 15, 2017 11:31 AM
[facility] COMPREHENSIVE METABOLIC PANEL UREA NITROGEN [MASS/VOLUME] IN SERUM OR PLASMA 14 mg/dL - 12/15/2017 <b>Specimen Type: </b> PLASMA
<b>Com ment: </b> For eGFR: eGFR results >60 are imprecise. Many variables affect the calculated result. Interpretation of eGFR results >60 must be monitored over time.
<b>Ordering Provider: </b> ROSALBA BAUGH
<b>Report Released Date/Time: </b>Dec 15, 2017 11:31 AM
[facility] COMPREHENSIVE METABOLIC PANEL GLUCOSE [MASS/VOLUME] IN SERUM OR PLASMA 89 mg/dL 72 - 99 12/15/2017 <b>Specimen Type: </b> PLASMA
<b>Com ment: </b> For eGFR: eGFR results >60 are imprecise. Many variables affect the calculated result. Interpretation of eGFR results >60 must be monitored over time.
<b>Ordering Provider: </b> ROSALBA BAUGH
<b>Report Released Date/Time: </b>Dec 15, 2017 11:31 AM
[employer] COMPREHENSIVE METABOLIC PANEL SODIUM [MOLES/VOLUME] IN SERUM OR PLASMA 140 mEq/L 136 - 145 12/15/2017 <b>Specimen Type: </b> PLASMA
<b>Com ment: </b> For eGFR: eGFR results >60 are imprecise. Many variables affect the calculated result. Interpretation of eGFR results >60 must be monitored over time.
<b>Ordering Provider: </b> ROSALBA BAUGH
<b>Report Released Date/Time: </b>Dec 15, 2017 11:31 AM
[employer] COMPREHENSIVE METABOLIC PANEL POTASSIUM [MOLES/VOLUME] IN SERUM OR PLASMA 4.1 mEq/L 3.5 - 5.0 12/15/2017 <b>Specimen Type: </b> PLASMA
<b>Com ment: </b> For eGFR: eGFR results >60 are imprecise. Many variables affect the calculated result. Interpretation of eGFR results >60 must be monitored over time.
<b>Ordering Provider: </b> ROSALBA BAUGH
<b>Report Released Date/Time: </b>Dec 15, 2017 11:31 AM
[employer] COMPREHENSIVE METABOLIC PANEL CALCIUM [MASS/VOLUME] IN SERUM OR PLASMA 9.7 mg/dL 8.4 - 10.4 12/15/2017 <b>Specimen Type: </b> PLASMA
<b>Com ment: </b> For eGFR: eGFR results >60 are imprecise. Many variables affect the calculated result. Interpretation of eGFR results >60 must be monitored over time.
<b>Ordering Provider: </b> ROSALBA BAUGH
<b>Report Released Date/Time: </b>Dec 15, 2017 11:31 AM
[facility] COMPREHENSIVE METABOLIC PANEL PROTEIN [MASS/VOLUME] IN SERUM OR PLASMA 7.2 g/dL 6.0 - 8.6 12/15/2017 <b>Specimen Type: </b> PLASMA
<b>Com ment: </b> For eGFR: eGFR results >60 are imprecise. Many variables affect the calculated result. Interpretation of eGFR results >60 must be monitored over time.
<b>Ordering Provider: </b> ROSALBA BAUGH
<b>Report Released Date/Time: </b>Dec 15, 2017 11:31 AM
[facility] COMPREHENSIVE METABOLIC PANEL ALBUMIN [MASS/VOLUME] IN SERUM OR PLASMA 4.3 g/dl 3.4 - 5.0 12/15/2017 <b>Specimen Type: </b> PLASMA
<b>Com ment: </b> For eGFR: eGFR results >60 are imprecise. Many variables affect the calculated result. Interpretation of eGFR results >60 must be monitored over time.
<b>Ordering Provider: </b> ROSALBA BAUGH
<b>Report Released Date/Time: </b>Dec 15, 2017 11:31 AM
[facility] COMPREHENSIVE METABOLIC PANEL BILIRUBIN.TOTAL [MASS/VOLUME] IN SERUM OR PLASMA 0.6 mg/dL 0.2 - 1.2 12/15/2017 <b>Specimen Type: </b> PLASM A
<b>Comment: </b> For eGFR: eGFR results >60 are imprecise. Many variables affect the calculated result. Interpretation of eGFR results >60 must be monitored over time.
<b>Ordering Provider: </b> ROSALBA BAUGH
<b>Report Released Date/Time: </b>Dec 15, 2017 11:31 AM
[facility] COMPREHENSIVE METABOLIC PANEL ASPARTATE AMINOTRANSFERASE [ENZYMATIC ACTIVITY/VOLUME] IN SERUM OR PLASMA 25 U/L 5 - 34 12/15/2017 <b>Specimen Type: </b> PLASM A
<b>Comment: </b> For eGFR: eGFR results >60 are imprecise. Many variables affect the calculated result. Interpretation of eGFR results >60 must be monitored over time.
<b>Ordering Provider: </b> ROSALBA BAUGH
<b>Report Released Date/Time: </b>Dec 15, 2017 11:31 AM
[employer] COMPREHENSIVE METABOLIC PANEL ALANINE AMINOTRANSFERASE [ENZYMATIC ACTIVITY/VOLUME] IN SERUM OR PLASMA 18 U/L 8 - 40 12/15/2017 <b>Specimen Type: </b> PLASM A
<b>Comment: </b> For eGFR: eGFR results >60 are imprecise. Many variables affect the calculated result. Interpretation of eGFR results >60 must be monitored over time.
<b>Ordering Provider: </b> ROSALBA BAUGH
<b>Report Released Date/Time: </b>Dec 15, 2017 11:31 AM
[employer] COMPREHENSIVE METABOLIC PANEL ANION GAP IN SERUM OR PLASMA 7.8 2017 L <b>Specim en Type: </b> PLASMA
<b>Comment: </b> For eGFR: eGFR results >60 are imprecise. Many variables affect the calculated result. Interpretation of eGFR results >60 must be monitored over time.
<b>Ordering Provider: </b> ROSALBA BAUGH
<b>Report Released Date/Time: </b>Dec 15, 2017 11:31 AM
[employer] COMPREHENSIVE METABOLIC PANEL CHLORIDE [MOLES/VOLUME] IN SERUM OR PLASMA 105 mEq/L 98 - 107 12/15/2017 <b>Specimen Type: </b> PLASMA
<b>Com ment: </b> For eGFR: eGFR results >60 are imprecise. Many variables affect the calculated result. Interpretation of eGFR results >60 must be monitored over time.
<b>Ordering Provider: </b> ROSALBA BAUGH
<b>Report Released Date/Time: </b>Dec 15, 2017 11:31 AM
[employer] COMPREHENSIVE METABOLIC PANEL CARBON DIOXIDE, TOTAL [MOLES/VOLUME] IN SERUM OR PLASMA 27.2 mEq/L 22 - 31 12/15/2017 <b>Specimen Type: </b> PLASM A
<b>Comment: </b> For eGFR: eGFR results >60 are imprecise. Many variables affect the calculated result. Interpretation of eGFR results >60 must be monitored over time.
<b>Ordering Provider: </b> ROSALBA BAUGH
<b>Report Released Date/Time: </b>Dec 15, 2017 11:31 AM
[facility] COMPREHENSIVE METABOLIC PANEL ALKALINE PHOSPHATASE [ENZYMATIC ACTIVITY/VOLUME] IN SERUM OR PLASMA 73 U/L 40 - 150 12/15/2017 <b>Specimen Type: </b> PLASM A
<b>Comment: </b> For eGFR: eGFR results >60 are imprecise. Many variables affect the calculated result. Interpretation of eGFR results >60 must be monitored over time.
<b>Ordering Provider: </b> ROSALBA BAUGH
<b>Report Released Date/Time: </b>Dec 15, 2017 11:31 AM
[facility] COMPREHENSIVE METABOLIC PANEL GLOMERULAR FILTRATION RATE/1.73 SQ M.PREDICTED [VOLUME RATE/AREA] IN SERUM OR PLASMA BY CREATININE- BASED FORMULA (MDRD) >60 12/15/2017 <b>Specimen Type: </b> PLASMA
<b>Com ment: </b> For eGFR: eGFR results >60 are imprecise. Many variables affect the calculated result. Interpretation of eGFR results >60 must be monitored over time.
<b>Ordering Provider: </b> ROSALBA BAUGH
<b>Report Released Date/Time: </b>Dec 15, 2017 11:31 AM
[facility] HEMOGLOBIN A1C HEMOGLOBIN A1C/ HEMOGLOBIN.TOTAL IN BLOOD BY HPLC 5.9 % 4.0 - 6.0 12/15/2017 <b>Specimen Type: </b> BLOOD
<div>No comment entered.
</div><b>Ordering Provider: </b> ROSALBA BAUGH
<b>Report Released Date/Time: </b>Dec 15, 2017 11:52 AM
[facility] LIPID PROFILE(HDL,TRIG,CHOL,LDL) CHOLESTEROL [MASS/VOLUME] IN SERUM OR PLASMA 152 mg/dL 0 - 200 12/15/2017 <b>Specimen Type: </b> PLASMA
<b>Com ment: </b> For eGFR: eGFR results >60 are imprecise. Many variables affect the calculated result. Interpretation of eGFR results >60 must be monitored over time.
<b>Ordering Provider: </b> ROSALBA BAUGH
<b>Report Released Date/Time: </b>Dec 15, 2017 11:31 AM
[facility] LIPID PROFILE(HDL,TRIG,CHOL,LDL) TRIGLYCERIDE [MASS/VOLUME] IN SERUM OR PLASMA 137 mg/dL 0 - 150 12/15/2017 <b>Specimen Type: </b> PLASMA
<b>Com ment: </b> For eGFR: eGFR results >60 are imprecise. Many variables affect the calculated result. Interpretation of eGFR results >60 must be monitored over time.
<b>Ordering Provider: </b> ROSALBA BAUGH
<b>Report Released Date/Time: </b>Dec 15, 2017 11:31 AM
[facility] LIPID PROFILE(HDL,TRIG,CHOL,LDL) CHOLESTEROL IN HDL [MASS/VOLUME] IN SERUM OR PLASMA 45 mg/dL 12/15/2017 <b>Specimen Type: </b> PLASMA
<b>Com ment: </b> For eGFR: eGFR results >60 are imprecise. Many variables affect the calculated result. Interpretation of eGFR results >60 must be monitored over time.
<b>Ordering Provider: </b> ROSALBA BAUGH
<b>Report Released Date/Time: </b>Dec 15, 2017 11:31 AM
[facility] LIPID PROFILE(HDL,TRIG,CHOL,LDL) CHOLESTEROL IN LDL [MASS/VOLUME] IN SERUM OR PLASMA BY CALCULATION 79.6 mg/dL 0 - 99.9 12/15/2017 <b>Specimen Type: </b> PLASMA
<b>Comment: </b> For eGFR: eGFR results >60 are imprecise. Many variables affect the calculated result. Interpretation of eGFR results >60 must be monitored over time.
<b>Ordering Provider: </b> ROSALBA BAUGH
<b>Report Released Date/Time: </b>Dec 15, 2017 11:31 AM
[facility] URINALYSIS COLOR OF URINE Donna lainez 12/15/2017 <b>Specimen Type: </b> URINE
<b>Comment: </b> Leukocyte esterase positive-C&S performed. Leukocyte esterase positive-C&S performed.
<b>Ordering Provider: </b> ROSALBA BAUGH
<b>Report Released Date/Time: </b>Dec 15, 2017 11:31 AM
[facility] URINALYSIS SPECIFIC GRAVITY OF URINE 1.011 12/15/2017 <b>Specimen Type: </b> URINE
<b>Comment: </b> Leukocyte esterase positive-C&S performed. Leukocyte esterase positive-C&S performed.
<b>Ordering Provider: </b> ROSALBA BAUGH
<b>Report Released Date/Time: </b>Dec 15, 2017 11:31 AM
[facility] URINALYSIS UROBILINOGEN [MASS/VOLUME ] IN URINE Negativemg/dL 0.1 - 1.0 12/15/2017 <b>Specimen Type: </b> URINE
<b>Comm ent: </b> Leukocyte esterase positive-C&S performed. Leukocyte esterase positive-C&S performed.
<b>O rdering Provider: </b> ROSALBA BAUGH
<b>Report Released Date/Time: </b>Dec 15, 2017 11:31 AM
[facility] URINALYSIS BILIRUBIN.TOTAL [NH ESENCE] IN URINE BY TEST STRIP Negative 0 12/15/2017 <b>Specimen Type: </b> URINE
<b>Comment: </b> Leukocyte esterase positive- C&S performed. Leukocyte esterase positive-C&S performed.
<b>Ordering Provider: </b> ROSALBA BAUGH
<b>Report Released Date/Time: <b>Dec 15, 2017 11:31 AM
[facility] URINALYSIS KETONES [MASS/VOLUME] IN URINE BY TEST STRIP Negativemg/dl 12/15/2017 <b>Specime n Type: </b> URINE
<b>Comment: </b> Leukocyte esterase positive-C&S performed. Leukocyte esterase positive-C&S performed.
<b>Ordering Provider: </b> ROSALBA BAUGH
<b>Report Released Date/Time: </b>Dec 15, 2017 11:31 AM
[facility] URINALYSIS GLUCOSE [MASS/VOLUME] IN URINE BY TEST STRIP Negativemg/dL 12/15/2017 <b>Specime n Type: </b> URINE
<b>Comment: </b> Leukocyte esterase positive-C&S performed. Leukocyte esterase positive-C&S performed.
<b>Ordering Provider: </b> ROSALBA BAUGH
<b>Report Released Date/Time: </b>Dec 15, 2017 11:31 AM
[facility] URINALYSIS PROTEIN [MASS/VOLUME] IN URINE BY TEST STRIP Negativemg/dl - Trace" 12/15/2017 <b>Specimen Type: </b> URINE
<b>Comm ent: </b> Leukocyte esterase positive-C&S performed. Leukocyte esterase positive-C&S performed.
<b>O rdering Provider: </b> ROSALBA BAUGH
<b>Report Released Date/Time: </b>Dec 15, 2017 11:31 AM
[facility] URINALYSIS PH OF URINE BY TEST STRIP 7.0 12/15/2017 <b>Specimen Type: </b> URINE
<b>Comment: </b> Leukocyte esterase positive-C&S performed. Leukocyte esterase positive-C&S performed.
<b>Ordering Provider: </b> ROSALBA BAUGH
<b>Report Released Date/Time: </b>Dec 15, 2017 11:31 AM
[facility] URINALYSIS BACTERIA [#/AREA] I N URINE SEDIMENT BY MICROSCOPY HIGH POWER FIELD Trace/HPF 12/15/2017 <b>Specimen Type: </b> URINE
<b>Comm ent: </b> Leukocyte esterase positive-C&S performed. Leukocyte esterase positive-C&S performed.
<b>Ordering Provider: </b> ROSALBA BAUGH
<b>Report Released Date/Time: </b>Dec 15, 2017 11:31 AM
[facility] URINALYSIS APPEARANCE OF URINE Keith y 12/15/2017 <b>Specimen Type: </b> URINE
<b>Comment: </b> Leukocyte esterase positive-C&S performed. Leukocyte esterase positive-C&S performed.
<b>Ordering Provider: </b> ROSALBA BAUGH
<b>Report Released Date/Time: </b>Dec 15, 2017 11:31 AM
[facility] URINALYSIS HEMOGLOBIN [PRESENCE] IN URINE Negative 12/15/2017 <b>Specimen Type: </b> URINE
<b>Comment: </b> Leukocyte esterase positive-C&S performed. Leukocyte esterase positive-C&S performed.
<b>Ordering Provider: </b> ROSALBA BAUGH
<b>Report Released Date/Time: </b>Dec 15, 2017 11:31 AM
[facility] URINALYSIS NITRITE [PRESENCE] IN URI NE BY TEST STRIP Positive 12/15/2017 <b>Specime n Type: </b> URINE
<b>Comment: </b> Leukocyte esterase positive-C&S performed. Leukocyte esterase positive-C&S performed.
<b>Ordering Provider: </b> ROSALBA BAUGH
<b>Report Released Date/Time: </b>Dec 15, 2017 11:31 AM
[facility] URINALYSIS LEUKOCYTE ESTERASE [PRESENCE] IN URINE BY TEST STRIP Negative 0 12/15/2017 <b>Specimen Type: </b> URINE
<b>Comment: </b> Leukocyte esterase positive- C&S performed. Leukocyte esterase positive-C&S performed.
<b>Ordering Provider: </b> ROSALBA BAUGH
<b>Report Released Date/Time: </b>Dec 15, 2017 11:31 AM
[facility] URINALYSIS LEUKOCYTES [#/AREA] IN URINE SEDIMENT BY MICROSCOPY HIGH POWER FIELD 16-20WBC/HPF 0 - 5 12/15/2017 H <b>Specimen Type: </b> URINE
<b>Comm ent: </b> Leukocyte esterase positive-C&S performed. Leukocyte esterase positive-C&S performed.
<b>Ordering Provider: </b> ROSALBA BAUGH
<b>Report Released Date/Time: </b>Dec 15, 2017 11:31 AM
[facility] URINALYSIS ERYTHROCYTES [#/VOL UME] IN URINE SEDIMENT BY MICROSCOPY HIGH POWER FIELD 3-5RBC/HPF 0 - 2 12/15/2017 H <b>Specimen Type: </b> URINE
<b>Comm ent: </b> Leukocyte esterase positive-C&S performed. Leukocyte esterase positive-C&S performed.
<b>Ordering Provider: </b> ROSALBA BAUGH
<b>Report Released Date/Time: </b>Dec 15, 2017 11:31 AM
[facility] URINALYSIS URINE BUDDING YEAST Few 12/15/2017 <b>Specimen Type: </b> URINE
<b>Comment: </b> Leukocyte esterase positive-C&S performed. Leukocyte esterase positive-C&S performed.
<b>Ordering Provider: </b> ROSALBA BAUGH
<b>Report Released Date/Time: <b>Dec 15, 2017 11:31 AM
[facility] Vital Signs Combined list of inpatient and outpatient Vital Signs from all [facility] and/or [facility] medical facilities within the last 15 months. [...] at [facility] of Defense and/or [facility] ([place] ) for the last 15 months. Not all VA inpatient encounters are included. The incl uded entries comply with the patient's data sharing authorizations. Location Location Details Encounter Type Encounter Number Reason For Visit Attending Provider ADM Date DC Date Status Disposition Source Outpatient Encounter [id number] ICD-10 -CM H93.13 Tinnitus, bilateral with Provider Comments: Bilateral tinnitus ([facility] [id number]) JORGE LUIS DAVIS 06/20/2018 [facility] OFFICE/OUT PATIENT VISIT EST [id number] _MAPID: ROSALBA BAUGH 12/03/2018 [facility] Outpatient Encounter [id number] _MAPID :end12/04/2018 [facility] Outpatient Encounter [id number] _MAPID:en dRe7 12/14/2018 [place] [id number] Outpatient Encounter [id number] _MAPID :endRe6 02/01/2019 [facility] Outpatient Encounter [id number] _MAPID :endRe5 04/12/2019 [facility] Outpatient Encounter [id number] _MAPID:e ndReason4 MIRIAM PELLETIER [facility] En[facility] [id number] _MAPID :endReason3 05/07/2019 [facility] Outpatient Encounter [id number] _MAPID:e ndReason2 08/13/2019 [facility] 15 Outpatient Encounter [id number] _MAPID:e ndReason1 10/14/2019 [facility] 15 Procedures No Data Provided for This Section Social History Combined list of available smoking, tobacco, and other social history on record at Department of Defense and/or Veterans Affairs facilities. The included entrie s comply with the patient's data sharing authorizations. Social History Type Response Date Comment Source Tobacco smoking status [facility]-TOBACCO NEVER USED 09/12/2018 [facility] History of [...] tobacco use [facility]IF[facility] FADUMO NON-TOBACCO USER 11/05/2002 [facility] History of tobacco use NON-S [...]
--- OUTSIDE RECORDS SUMMARY | 2019-11-11 10:51 | XMS REPORT | Encounter Summary ---
Author Author Department [facility] YORDAN sanders Organization [facility] Address [address] [place] [address] Phone Unavailable Care Team Providers Care Metal Melter Name Role Phone HEIKEMALLORIE PCP Unavailable Insurance [...] MEDICARE SUPPLEMENT Sep 24, 2002 PLAN F [id number] [phone] YORDAN HAMILTON PATIENT MEDICARE (WNR) MEDICARE (M) PART B Mar 27, 2001 PART B [id number] [phone] YORDAN HAMILTON JR PATIENT MEDICARE (WNR) MEDICARE (M) PART A May 26, 1999 PART A [id number] [phone] YORDAN HAMILTON JR PATIENT Selected Encounter This section includes the information on record at [place] for the Encounter. Date/Time Encounter Type Encounter Description Reason Provider Source Apr 29, 2019 11:29 AM Outpatient Encounter COMMUNITY CARE CONS[facility] En[facility] Template Text not used by [place] Assessments - Encounter Diagnoses No Data Provided for This Section Plan of Treatment: Future Appointments (+ 6 months) and Future Tests (+/- 45 day s) The Plan of Treatment section includes future care activities for the patient fr om all [place] treatment facilities. This section includes future appointments and fu ture orders which are active, pending or scheduled. Future Appointments This section includes appointments that were scheduled t o occur 6 months from the date of the Encounter, up to a maximum of 20 appointme nts. The data comes from all [facility] facilities. Appointment Date/Time Appointment Type Appointment Facili [...] patient. The data comes from a ll [place] treatment facilities. It does not list Allergies/ADRs that were removed or entered in error. Some allergies/ADRs may be reported in t he Immunization section. Allergen Event Date Event Type Reaction(s) Severity Source No Known Allergies [facility] 15 Medications: VA dispensed (-15 months) and Non-VA Documented (Obtained Outside A) Section Date Range: 1) prescriptions processed by a [place] pharmacy in the last 15 m [facility], and 2) all medications recorded in the [place] medical record as "non-VA medic ations". Pharmacy terms refer to [place] pharmacy's work on prescriptions. VA patient s are advised to take their medications as instructed by their health care team. The data comes from all [place] treatment facilities. Glossary of Pharmacy Terms:Active = A prescription that can be filled at the local [place] pharmacy.Active: On Hold = An active prescription that will not be filled until pharmacy resolves the issue.Active: Susp = An active prescription that is not scheduled to be filled yet.Clinic Order = A medication received during a visit to a [place] clinic or emergency department (currently not available).Discontinued [...] ready yet.Transferred = A prescription moved to [place]'s new electronic health record. Take your medications [...] problems (conditions). The data comes from all [place] treatment facilities. Problem Status Problem Code Date of Onset Date of Resolution Comm ent(s) Provider Source Bilateral tinnitus (SNOMED CT [id number]) Active [id number] TEOLAMAR Cannon [facility] Bladder cancer Active 602846728 KAIN WHITLOCK [facility] Chronic kidney disease stage 3 Active 072843654 KAIN WHITLOCK [facility] History of percutaneous transluminal coronary angioplasty Active 941163098 BROOKLYNROSALBA [facility] HTN - Hypertension (SCT [id number]) [facility]59 [facility] Hyperlipidemia Active 71338880 KAIN WHITLOCK [facility] Hypothyroidism Active 83283749 KAIN WHITLOCK [facility] Impotence of organic origin Active 983488828 FR KAIN CAT [facility] Sensorineural hearing loss, bilateral Active 319346079 MIKKI FRITZ [facility] Arthritis * (ICD-9-CM 716.90) Inactive 716.90 NovSep 18, 2007 Entered By: KAIN WHITLOCK Comment: knees bilatSep 15, 2008 Entered By: KAIN WHITLOCK Comment: left knee "scrapped" in 2007 MALLORIE BURROUGHS [facility] CAD * (ICD-9-CM 414.9) Inactive 414.9 Dec 15, 2017 ASK DEVEN SERRANO [facility] HYPERLIPIDEMIA NEC/NOS 272.4 Inactive 272.4 Dec 15 ENRIQUE SMALLWOOD [facility] HYPERTENSION NOS 401.9 Inactive 401.9 Dec 15, 2017 SO ENRIQUE AGUILERA [facility] 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 KAIN WHITLOCK [facility] Hypothyroidism Inactive 244.9 Dec 15, 2017 KAIN WHITLOCK [facility] IMPAIRED FASTING GLUCOSE. Inactive 799.9 Dec 15, 2017 KAIN WHITLOCK [facility] Knee Joint replacement Status (Prosthetic or Artificial Device) Inactive V43.65 Dec 15, 2017 Jan 17, 2012 Entered By: KAIN BAI Comment: left. juancarlos creon mo.- oct KAIN WHITLOCK [facility] Personal History of Tobacco Use Inactive V15.82 Dec 15, 2017 July 27, 2006 Entered By: KAIN WHITLOCK Comment: quit smoking in 1999 after cabg KAIN WHITLOCK [facility] Postsurgical Aortocoronary Bypass Status Inactive V45.81 Dec 15, 2017 July 27, 2006 Entered By: KAIN WHITLOCK Comment: in 1999, [facility], [place], [place].Sep 15, 2008 Entered By: KAIN WHITLOCK Comment: [facility] september 12, [place]. KAIN WHITLOCK [facility] Postsurgical Percutaneous Transluminal Coronary Angioplasty Status Inactive V45.82 Dec 15, 2017 Dec 01, 2010 Entered By: KAIN WHITLOCK Comment: /2011. dr woodward. promus drug eluting stent KAIN WHITLOCK [facility] Sensorineural Hearing Loss * (ICD-9-CM 389.10) Inactive 389.10 Dec 15, 2017 KAIN WHITLOCK [facility] Tinnitus * (ICD-9-CM 388.30) Inactive 388.30 Dec 15, 2017 [facility] Radiology Reports: +/- 30 days of the encounter No Data Provided for This Section Pathology Reports: +/- 30 days of the encounter No Data Provided for This Section Encounter Notes: All associated encounter notes This section contains the clinical notes associated to the Encounter. Date/Time Encounter Note(s) Provider Source Apr 29, 2019 11:29 AM NONVA NOTE: LOCAL TITLE: [facility]-SCHEDULING STANDARD TITLE: NONVA NOTE DATE OF NOTE: APR 29, 2019@11:29 ENTRY DATE: APR 29, 2019@11:29:17 AUTHOR: VEENA LOVETT COSIGNER: URGENCY: STATUS: COMPLETED Patient Centered Community Care (PC3) Program VA Schedules ([id number]) [facility] CHOICE APPROVAL FOR MEDICAL CARE VA-FORM [phone] Certain protected health information (PHI) may be enclosed; specifically information related to HIV, sickle cell anemia and substance abuse. This specific PHI may NOT be re-disclosed or used by the recipient person or office for any purpose other than that for which the disclosure was made. [Ref. 38 [facility] 7332(b)(2)(H)(ii)] The information is being disclosed by [place] only for the treatment and care of the named patient in the health record. Accounting of disclosure must be maintained when required. [place] AUTH #: [id number] CONSULT #: [id number] Please select referral urgency: Routine Clinically Indicated Date (MANI): Mar Category of Care/Type of Specialty: AUDIOLOGY Type of Specialist: POPULATION HEALTH MANAGER Diagnosis Code/Chief Complaint: Encounter for Examination of [...] this episode of care Please visit the [facility] Storefront [email or web address] for additional resources and requirements pertaining to the following Pharmacy prescribing requirements Durable Medical Equipment (DME), Prosthetics, and Orthotics prescribing requirements Precertification (PRCT) process requirements Request for Services (RFS) requirements GISEL Eligibility Verification: As the authorized VA international sales representative, I hereby confirm that the [place] is eligible for Community Care services. The 's basic eligibility was verified in CPRS or the enrollment system on Mar@11:29 Facility: [facility] Community Interior Design Principal: Name: Jessica Oseguera Title: Nurse Hat Block Bench Hand [facility] Report all CRITICAL FINDINGS related to this authorization to the issuing office below. ALL other questions regarding this authorization should be directed to: [phone] Local [place] Office of Community Care (OCC) Contact Number (Normal Business Hours): [phone] AOD/Emergency Contact After Hours Number: [phone] VA Issuing Office: From Station #: [id number] Facility Name: Wesley Tejada [facility] [address] Address: [address] City: [place]: [place] Zip: [address] Information: Name: YORDAN HAMILTON : May SSN: [id number] Address: Phone: [place] Alternate Phone: In accordance with section 101 of the Veterans Access, Choice, and Accountability Act of 2014 (the Act)(Public Law 113-146, 128 Stat. 1754), as amended by the Department of Veterans Affairs (VA), the Expiring Authorities Act of 2014(Public Law 113-175, 128 Stat. 1902), the Consolidated and Further Continuing Appropriations Act of 2015 (Public Law 113 -235, 128 Stat. 2568), and 38 CFR 17.7999-7786, [place] will pay for non-VA hospital care and medical services that are authorized by [place] for Veterans who are determined by [place] to meet the Veterans Choice Program eligibility criteria set forth by section 101 of the Act and 38 CFR 17.1510 and any other eligibility standards that may apply to particular services (such as health care for newborns of Veterans under 38 CFR 17.38(a)(xiv) and dental benefits under 17.160-17.169). APPOINTMENT INFORMATION has an appointment scheduled on Apr@10:30 with: Provider: Tl Anaya AUD/Maeve Reynolds/ Address: [address] [place] [address] City: [place] State: [place] Zip: [address] /evelyne/ VEENA LOVETT [facility] Signed: 04/29/2019 11:34 VEENA LOVETT WandaMateo [facility]
--- OUTSIDE RECORDS SUMMARY | 2019-11-11 10:51 | XMS REPORT | Encounter Summary ---
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 Date/Time Encounter Type Encounter Description Reason Provider Source Dec 04, 2018 10:27 AM Outpatient Encounter ADMIN PAT ACTIVTIES (MASNO NCT) [facility] IHE Encounter Template Text not used [...] Comment Dec 03, 2018 09:20 AM [facility] CBC & DIFF Specimen T ype: [...] 11.8-15.1 Dec 03, 2018 09:20 AM [facility] COMPREHENSIVE METABOLIC PA CARL Specimen Type: [...] and tobacco- related health factors from the PA facility where the Encounter took place. Current Smoking Status This section includes the most current smoking, or tobacco -related health factor, from the VA facility where the Encounter took place. Date/Time Current Smoking Status Comment Facility Sep 12, 2018 09:38 AM VA-TOBACCO NEVER USED [facility] Tobacco Use History This section includes a history of the smoking, or tobacco -related health factors, that were collected on or before the date of the Encoun ter. The data comes from the PA facility where the Encounter took place. Date/Time Smoking Status/Tobacco Use Comment [facility] it Jul 18, 2016 11:05 AM NON-TOBACCO USER [...] patient. The data comes from a ll PA treatment facilities. It does not list Allergies/ADRs [...] VA pharmacy in the last 15 m [facility], and 2) all medications recorded in the PA medical record as "non-VA medic ations". Pharmacy terms refer to PA pharmacy's work on prescriptions. VA patient s are advised to take their medications as instructed by their health care team. The data comes from all PA treatment facilities. Glossary of Pharmacy Terms:Active = A prescription that can be filled at the local PA pharmacy.Active: On Hold = An active prescription that will not be filled until pharmacy resolves the issue.Active: Susp = An active prescription that is not scheduled to be filled yet.Clinic Order = A medication received during a visit to a PA clinic or emergency department (currently not available).Discontinued [...] ready yet.Transferred = A prescription moved to PA's new electronic health record. Take your medications as prescribed by your health care team. Medication Name and Strength Pharmacy Term Instructions Quantity Or dered Prescription Expires Prescription Number Last Dispense Date Ordering Provider Facility ASPIRIN 81MG TAB,EC Non- VA TAKE ONE TABLET BY MOUTH ONCE A DAY Non-VA Documented by: [facility] BUDESONIDE 80MCG/FORMOTEROL FUM 4.5MCG/SPRAY INHL,ORAL ,10.2GM Non-VA INHALE 2 PUFFS BY ORAL INHALATION THREE TIMES A DAY NEEDED Non-V A Documented by: ROSALBA BAUGH [facility] CALCIUM CITRATE 315MG/VITAMIN D 200UNT TAB Non-VA TAKE ONE TABLET BY MOUTH TWO TIMES A DAY Non-VA Documented by: ROSALBA BAUGH nted at: [facility] CLOPIDOGREL BISULFATE 75MG TAB Non-VA TAKE ONE TABLET BY MOUTH ONCE A DAY Non-VA Documented by: ROSALBA BAUGH nted at: [facility] DILTIAZEM (24HR DOSING) CAP,SA Non-VA TAKE 90 BY MOUTH EVERY MORNING Non-VA Documented by: ROSALBA BAUGH nted at: [facility] FISH OIL 1000MG (500MG DHA/EPA) CAP,ORAL Non-VA TAKE 1 CAPSULE BY MOUTH TWO TIMES A DAY Non-VA Documented by: ROSALBA BAUGH nted at: [facility] FUROSEMIDE 40MG TAB Non- VA TAKE ONE TABLET BY MOUTH EVERY MORNING NEEDED Non-VA Docume nted by: ROSALBA BAUGH n[facility] GEMFIBROZIL 600MG TAB No n-VA TAKE ONE TABLET BY MOUTH TWO TIMES A DAY BEFORE MEALS Non-VA Documented by: ROSALBA BAUGH [facility] LEVOTHYROXINE NA 0.05MG TAB (SYNTHROID) Non-VA TAKE ONE TABLET BY MOUTH EVERY MORNING BEFORE MEAL Non-VA Documented by: ROSALBA BAUGH [facility] LISINOPRIL 5MG TAB Non- VA TAKE ONE-HALF TABLET BY MOUTH EVERY MORNING Non-VA Documented by: ROSALBA BAUGH nted [facility] LORATADINE 10MG TAB Non- VA TAKE ONE TABLET BY MOUTH QDAY PRN Non-VA Documented by: ROSALBA BAUGH n[facility] at[facility] MAGNESIUM OXIDE 400MG TAB Non-VA TAKE ONE TABLET BY MOUTH ONCE A DAY Non-VA Documented by: ROSALBA BAUGH nted at: [facility] MELATONIN 1MG CAP/TAB No n-VA TAKE 10 CAP/TABS BY MOUTH AT BEDTIME Non-VA Documented by: ROSALBA BAUGH nted at: [facility] MELOXICAM 15MG TAB Non- VA TAKE ONE TABLET BY MOUTH ONCE A DAY NEEDED Non-VA Documented by: ROSALBA BAUGH nted at: [facility] POTASSIUM CHLORIDE 20MEQ TAB,SA (DISPERSIBLE) Non-VA TAKE ONE-HALF TABLET BY MOUTH EVERY MORNING NEEDED Non-VA Documented by: ROSALBA BAUGHume nted at: [facility] ROSUVASTATIN CA 40MG [...] problems (conditions). The data comes from all PA treatment facilities. Problem Status Problem Code Date of Onset Date of Resolution Comm ent(s) Provider Source Bilateral tinnitus (SNOMED CT 7327675970617) Active [id number] [facility] Bladder cancer Active 553675703 [facility] Chronic kidney disease stage 3 Active 058243265 KAIN WHITLOCK [facility] History of percutaneous transluminal coronary angioplasty Active 443134213 [facility] HTN - Hypertension (SCT 94665922) Active 41377647 [facility] Hyperlipidemia Active 77511705 KAIN WHITLOCK [facility] Hypothyroidism Active 02067100 KAIN WHITLOCK [facility] Impotence of organic origin Active 051254498 [facility] Sensorineural hearing loss, bilateral Active 265643683 MIKKI FRITZ [facility] Arthritis * (ICD-9-CM 716.90) Inactive 716.90 NovSep 18, 2007 Entered By: KAIN WHITLOCK Comment: knees bilatJun 2008 Entered By: KAIN WHITLOCK Comment: left knee "scrapped" in 2007 AMLLORIE BURROUGHS [facility] CAD * (ICD-9-CM 414.9) Inactive 414.9 Dec 15, 2017 ASK DEVEN SERRANO [facility] HYPERLIPIDEMIA NEC/NOS 272.4 Inactive 272.4 Dec 15 18 ENRIQUE SMALLWOOD [facility] HYPERTENSION NOS 401.9 Inactive 401.9 Dec 15, 2017 SO WILLYENRIQUE [facility] 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 KAIN [facility] Hypothyroidism Inactive 244.9 Dec 15, 2017 KAIN WHITLOCK [facility] IMPAIRED FASTING GLUCOSE. Inactive 799.9 Dec 15, 2017 KAIN WHITLOCK [facility] Knee Joint replacement Status (Prosthetic or Artificial Device) Inactive V43.65 Dec 15, 2017 Jan 17, 2012 Entered By: KAIN BAI Comment: left. juancarlos ceron mo.- oct KAIN WHITLOCK [facility] Personal History of Tobacco Use Inactive V15.82 Dec 15, 2017 July 27, 2006 Entered By: KAIN WHITLOCK Comment: quit smoking in yr 2000 after cabg [facility] Postsurgical Aortocoronary Bypass Status Inactive V45.81 Dec 15, 2017 July 27, 2006 Entered By: KAIN WHITLOCK Comment: [facility] [place], [place]Sep 15, 2008 Entered By: KAIN WHITLOCK Comment: [facility] september 12, [place] KAIN WHITLOCK [facility] Postsurgical Percutaneous Transluminal Coronary Angioplasty Status Inactive V45.82 Dec 15, 2017 Dec 01, 2010 Entered By: KAIN WHITLOCK Comment: /2011. dr woodward. promus drug eluting stent KAIN WHITLOCK [facility] Sensorineural Hearing Loss * (ICD-9-CM 389.10) Inactive 389.10 Dec 15, 2017 KAIN WHITLOCK [facility] Tinnitus * (ICD-9-CM 388.30) Inactive 388.30 Dec 15, 2017 WHITLOCKKAIN SANCHEZ [facility] Radiology Reports: +/- 30 days of [...] EXP COSIGNER: URGENCY: STATUS: COMPLETED [facility] Fernando Chris Tejada [address] [place] [address] YORDAN HAMILTON [address], [place], [address] Nov Dear YORDAN HAMILTON, The purpose of this letter is to inform you of your test results done recently at the [facility], [place], [place]. Your lab results were reviewed. Your Glucose is elevated to 112. Reduce sugar and carbohydrate intake. [facility]
--- OUTSIDE RECORDS SUMMARY | 2019-11-11 10:51 | XMS REPORT | Encounter Summary ---
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 Date/Time Encounter Type Encounter Description Reason Provider Source Dec 03, 2018 09:00 AM OFFICE/OUTPATIENT VISIT EST PRIMARY CARE/MEDI CINE ROSALBA BAUGH [facility] IHE Encounter Template Text not used [...] Comment Dec 03, 2018 09:20 AM [facility] CBC & DIFF Specimen T ype: [...] 11.8-15.1 Dec 03, 2018 09:20 AM [facility] COMPREHENSIVE METABOLIC PA CARL Specimen Type: [...] and tobacco- related health factors from the IA facility where the Encounter took place. Current Smoking Status This section includes the most current smoking, or tobacco -related health factor, from the IA facility where the Encounter took place. Date/Time Current Smoking Status Comment Facility Sep 12, 2018 09:38 AM VA-TOBACCO NEVER USED [facility] Tobacco Use History This section includes a history of the smoking, or tobacco -related health factors, that were collected on or before the date of the Encoun ter. The data comes from the IA facility where the Encounter took place. Date/Time Smoking Status/Tobacco Use Comment [facility] ity Jul 18, 2016 11:05 AM NON-TOBACCO USER [facility] Jan 21, 2015 04:01 PM CURRENT NON-SMOKER [facility] Jan 21, 2015 04:01 PM LIFETIME NON-TOBACCO USER [facility] Jan 03, 2014 10:30 AM CURRENT NON-SMOKER [facility] Jan 03, 2014 10:30 AM LIFETIME NON-TOBACCO USER [facility] Jan 14, 2013 10:29 AM CURRENT NON-SMOKER [facility] Jan 14, 2013 10:29 AM LIFETIME NON-TOBACCO USER [facility] Jan 17, 2012 09:48 AM CURRENT NON-SMOKER [facility] Jan 17, 2012 09:48 AM LIFETIME NON-TOBACCO USER [facility] Dec 01, 2010 10:53 AM CURRENT NON-SMOKER [facility] Dec 01, 2010 10:53 AM LIFETIME NON-TOBACCO USER [facility] Dec 01, 2010 10:53 AM NON-TOBACCO USER [facility] Nov 17, 2009 09:01 AM CURRENT NON-SMOKER [facility] Nov 17, 2009 09:01 AM LIFETIME NON-TOBACCO USER [facility] Sep 15, 2008 09:22 AM NON-TOBACCO USER [facility] Sep 18, 2007 08:58 AM NON-TOBACCO USER [facility] July 27, 2006 10:23 AM NON-TOBACCO USER [facility] Jun 27, 2005 10:02 AM NON-SMOKER [facility] Jun 27, 2005 10:02 AM NON-TOBACCO USER [facility] Oct 17, 2003 09:18 AM NON-SMOKER [facility] Oct 17, 2003 09:18 AM NON-TOBACCO USER [facility] Nov 05, 2002 08:09 AM CURRENT NON-SMOKER [facility] Nov 05, 2002 08:09 AM LIFETIME NON-SMOKER [facility] Nov 05, 2002 08:09 AM LIFETIME NON-TOBACCO USER [facility] Nov 05, 2002 08:09 AM NON-SMOKER [facility] Nov 05, 2002 08:09 AM NON-TOBACCO USER [facility] Nov 06, 2001 09:15 AM CURRENT NON-SMOKER [facility] Nov 06, 2001 09:15 AM LIFETIME NON-SMOKER [facility] Nov 06, 2001 09:15 AM LIFETIME NON-TOBACCO USER [facility] Nov 06, 2001 09:15 AM NON-SMOKER [facility] Nov 06, 2001 09:15 AM NON-TOBACCO USER [facility] Dec 22, 2000 06:25 AM CURRENT NON-SMOKER [...] patient. The data comes from a ll IA treatment facilities. It does not list Allergies/ADRs that were removed or entered in error. Some allergies/ADRs may be reported in t he Immunization section. Allergen Event Date Event Type Reaction(s) Severity Source No Known Allergies [facility], VISN 15 Medications: VA dispensed (-15 months) and Non-VA Documented (Obtained Outside A) Section Date Range: 1) prescriptions processed by a VA pharmacy in the last 15 m [facility], and 2) all medications recorded in the IA medical record as "non-VA medic ations". Pharmacy terms refer to IA pharmacy's work on prescriptions. VA patient s are advised to take their medications as instructed by their health care team. The data comes from all IA treatment facilities. Glossary of Pharmacy Terms:Active = A prescription that can be filled at the local [place] pharmacy.Active: On Hold = An active prescription that will not be filled until pharmacy resolves the issue.Active: Susp = An active prescription that is not scheduled to be filled yet.Clinic Order = A medication received during a visit to a IA clinic or emergency department (currently not available).Discontinued [...] ready yet.Transferred = A prescription moved to IA's new electronic health record. Take your medications [...] problems (conditions). The data comes from all IA treatment facilities. Problem Status Problem Code Date of Onset Date of Resolution Comm ent(s) Provider Source Bilateral tinnitus (SNOMED CT 0308073288688) Active [id number] LAMAR MARTIN [facility] Bladder cancer Active 004565563 KAIN WHITLOCK [facility] Chronic kidney disease stage 3 Active 003664795 [facility]LOCK [facility] History of percutaneous transluminal coronary angioplasty Active 386578656 [facility] HTN - Hypertension ([facility] 10488548) Active 49427433 [facility]BA [facility] Hyperlipidemia Active 81054164 KAIN WHITLOCK [facility] Hypothyroidism Active 19925444 KAIN WHITLOCK [facility] Impotence of organic origin Active 172053713 KAIN [facility] Sensorineural hearing loss, bilateral Active 216742472 MIKKI FRITZ [facility] Arthritis * (ICD-9-CM 716.90) Inactive 716.90 NovSep 18, 2007 Entered By: KAIN WHITLOCK Comment: knees bilatSep 15, 2008 Entered By: KAIN WHITLOCK Comment: left knee "scrapped" in 2007 MALLORIE BURROUGHS [facility] CAD * (ICD-9-CM 414.9) Inactive 414.9 Dec 15, 2017 ASK DEVEN SERRANO [facility] HYPERLIPIDEMIA NEC/NOS 272.4 Inactive 272.4 Dec 15 18 ENRIQUE SMALLWOOD [facility] HYPERTENSION NOS 401.9 Inactive 401.9 Dec 15, 2017 SO ENRIQUE AGUILERA [facility] 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 KAIN WHITLOCK [facility] Hypothyroidism Inactive 244.9 Dec 15, 2017 KAIN WHITLOCK [facility] IMPAIRED FASTING GLUCOSE. Inactive 799.9 Dec 15, 2017 KAIN WHITLOCK [facility] Knee Joint replacement Status (Prosthetic or Artificial Device) Inactive V43.65 Dec 15, 2017 Jan 17, 2012 Entered By: KAIN BAI Comment: left. juancarlos ceron mo.- oct KAIN WHITLOCK [facility] Personal History of Tobacco Use Inactive V15.82 Dec 15, 2017 July 27, 2006 Entered By: KAIN WHITLOCK Comment: quit smoking in yr 1999 after cabg KAIN WHITLOCK [facility] Postsurgical Aortocoronary Bypass Status Inactive V45.81 Dec 15, 2017 July 27, 2006 Entered By: KAIN WHITLOCK Comment: in 1999, [facility], [place], [place]Sep 15, 2008 Entered By: KAIN WHITLOCK Comment: [facility] september 12, [place] KAIN WHITLOCK [facility] Postsurgical Percutaneous Transluminal Coronary Angioplasty Status Inactive V45.82 Dec 15, 2017 Dec 01, 2010 Entered By: KAIN WHITLOCK Comment: /2011. dr woodward. promus drug eluting stent KAIN WHITLOCK [facility] Sensorineural Hearing Loss * (ICD-9-CM 389.10) Inactive 389.10 Dec 15, 2017 KAIN WHITLOCK [facility] Tinnitus * (ICD-9-CM 388.30) Inactive 388.30 Dec 15, 2017 KAIN WHITLOCK [facility] Radiology Reports: +/- 30 days of the encounter No Data Provided for This Section Pathology Reports: +/- 30 days of the encounter No Data Provided for This Section Encounter Notes: All associated encounter notes This section contains the clinical notes associated to the Encounter. Date/Time Encounter Note(s) Provider Source Dec 03, 2018 09:29 AM MEDICATION MGT NOTE: LOCAL TITLE: AK-MEDICATION RECONCILIATION (BP,O) STANDARD TITLE: MEDICATION MGT NOTE [...] ROSALBA BAUGH Signed: 12/03/2018 09:30 [facility] B[facility] Dec 03, 2018 09:26 AM NURSE PRACTITIONER NOTE: LOCAL TITLE: WI-OIL TANK CAR CLEANER/NURSE/[facility] STANDARD TITLE: NURSE PRACTITIONER NOTE DATE OF NOTE: DEC 03, 2018@09:26 ENTRY DATE: DEC 03, 2018@09:26:24 AUTHOR: ROSALBA BAUGH EXP COSIGNER: URGENCY: STATUS: COMPLETED WI-OIL TANK CAR CLEANER/NURSE/[facility] Has ADDENDA cc:annual HPI:Chief concern is accomplishing annual. He uses non-VA PCP Dr Silverman. Past Medical/Surgical History: Computerized Problem List is the source for the followin. Bilateral tinnitus (SNOMED CT [id number]) 11/04/15 [place] A 2. Impotence of organic origin 01/14/13 KAIN WHITLOCK 3. Hyperlipidemia 01/23/15 KAIN WHITLOCK 4. Hypothyroidism 01/23/15 KAIN WHITLOCK 5. Sensorineural hearing loss, bilateral 03/02/15 SEEMA-, 6. Bladder cancer 07/18/16 KAIN WHITLOCK 7. Chronic kidney disease stage 3 07/19/16 KAIN WHITLOCK 8. HTN - Hypertension ([facility] 44230517) 12/15/17 ROSALBA BAUGH 9. History of percutaneous [...] today? *Required No Are you registered for [employer] ([facility])? No - Are you interested in registering? No If 'yes' please hand [employer] brochure. WI-FOOT EXAM (PAVE): Foot Assessment The foot exam was not completed. VISN 15-INFLUENZA IMMUNIZATION : INFLUENZA IMMUNIZATION V1.0 Vaccine not given: Patient [...] today. Community resources (If referral -- to [facility]/) ...No When/how to obtain further treatment? ...Yes Patient responsibilities in the treatment process? (Booklet) ...No Hygiene? (If taught - Handout/PHE given that includes grooming, bathing, oral health, hair and nail care and use of toilet.) ...No Information about disease process? (If taught - appropriate handout given) ...No Advanced directives? (Booklet) ...No WI-ANA [place] ADL: ACOVE [place]SE[place] INDEX ADL: [place] Index of [place] in Activities of Daily Living Activities Points (1 or 0) [place] (1 Point) NO supervision, direction or personal [...] patient is very dependent. Slightly adapted. Lorelei S., Madi TD, Rakan, HR, et al. (1970) [...]
--- OUTSIDE RECORDS SUMMARY | 2019-11-11 10:51 | XMS REPORT | Encounter Summary ---
Author Author Department [facility] YORDAN sanders Organization Department [facility] Address [address] [place] [address] Phone Unavailable Care Team Providers Care Train Examiner Name Role Phone HEIKE MALLORIE PCP Unavailable [...] MEDICARE SUPPLEMENT Sep 24, 2002 PLAN F [id number] [phone] YORDAN HAMILTON PATIENT MEDICARE (WNR) MEDICARE (M) PART B Mar 27, 2001 PART B [id number] YORDAN HAMILTON JR PATIENT MEDICARE (WNR) MEDICARE (M) PART A May 26, 1999 PART A [id number] [phone] YORDAN HAMILTON JR PATIENT Selected Encounter This section includes the information on record at MD for the Encounter. Date/Time Encounter Type Encounter Description Reason Provider Source Apr 12, 2019 08:21 AM Outpatient Encounter ADMIN PAT ACTIVTIES (MASNO NCT) [facility] IHE Encounter Template Text not used by MD Assessments - Encounter Diagnoses No Data Provided for This Section Plan of Treatment: Future Appointments (+ 6 months) and Future Tests (+/- 45 day s) The Plan of Treatment section includes future care activities for the patient fr om all MD treatment facilities. This section includes future appointments and fu ture orders which are active, pending or scheduled. Future Appointments This section includes appointments that were scheduled t o occur 6 months from the date of the Encounter, up to a maximum of 20 appointme nts. The data comes from all [facility] facilities. Appointment Date/Time Appointment Type [...] patient. The data comes from a ll MD treatment facilities. It does not list Allergies/ADRs that were removed or entered in error. Some allergies/ADRs may be reported in t he Immunization section. Allergen Event Date Event Type Reaction(s) Severity Source No Known Allergies [facility], VISN 15 Medications: VA dispensed (-15 months) and Non-VA Documented (Obtained Outside A) Section Date Range: 1) prescriptions processed by a [facility] pharmacy in the [facility], and 2) all medications recorded in the MD medical record as "non-VA medic ations". Pharmacy terms refer to MD pharmacy's work on prescriptions. VA patient s are advised to take their medications as instructed by their health care team. The data comes from all MD treatment facilities. Glossary of Pharmacy Terms:Active = A prescription that can be filled at the local MD pharmacy.Active: On Hold = An active prescription that will not be filled until pharmacy resolves the issue.Active: Susp = An active prescription that is not scheduled to be filled yet.Clinic Order = A medication received during a visit to a MD clinic or emergency department (currently not available).Discontinued [...] other providers that was filled outside the MD. Or, it may be an over the counter (OTC), herbal, dietary supplement or sample medication.Pending = This prescription order has been sent to the Pharmacy for review and is not ready yet.Transferred = A prescription moved to MD's new electronic health record. Take your medications [...] by: ROSALBA BAUGH nted at: [facility] LEVOTHYROXINE NA 0.05MG TAB (SYNTHROID) Non-VA TAKE [...] problems (conditions). The data comes from all MD treatment facilities. Problem Status Problem Code Date of Onset Date of Resolution Comm ent(s) Provider Source Bilateral tinnitus (SNOMED CT 7316634558376) Active [id number] LAMAR MARTIN [facility] Bladder cancer Active 153191649 KAIN WHITLOCK [facility] Chronic kidney disease stage 3 Active 306817963 KAIN WHITLOCK [facility] History of percutaneous transluminal coronary angioplasty Active 384540468 [facility] HTN - Hypertension (SCT 34084205) Active 11784670 [facility] Hyperlipidemia Active 90896970 KAIN WHITLOCK [facility] Hypothyroidism Active 17059845 KAIN WHITLOCK [facility] Impotence of organic origin Active 509053701 KAIN VENTURA [facility] Sensorineural hearing loss, bilateral Active 140498268 MIKKI FRITZ [facility] Arthritis * (ICD-9-CM 716.90) Inactive 716.90 NovSep 18, 2007 Entered By: KAIN WHITLOCK Comment: knees bilatSep 15, 2008 Entered By: KAIN WHITLOCK Comment: left knee "scrapped" in 2007 MALLORIE BURROUGHS [facility] CAD * (ICD-9-CM 414.9) Inactive 414.9 Dec 15, 2017 ASK DEVEN SERRANO [facility] HYPERLIPIDEMIA NEC/NOS 272.4 Inactive 272.4 Dec 15 ENRIQUE SMALLWOOD [facility] HYPERTENSION NOS 401.9 Inactive 401.9 Dec 15, 2017 SO ENRIQUE AGUILERA [facility] 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 KAIN WHITLOCK [facility] Hypothyroidism Inactive 244.9 Dec 15, 2017 KAIN WHITLOCK [facility] IMPAIRED FASTING GLUCOSE. Inactive 799.9 Dec 15, 2017 KAIN WHITLOCK [facility] Knee Joint replacement Status (Prosthetic or Artificial Device) Inactive V43.65 Dec 15, 2017 Jan 17, 2012 Entered By: KAIN BAI Comment: left. juancarlos ceron mo.- oct KAIN WHITLOCK [facility] Personal History of Tobacco Use Inactive V15.82 Dec 15, 2017 July 27, 2006 Entered By: KAIN WHITLOCK Comment: quit smoking in 1999 after cabg KAIN WHITLOCK [facility] Postsurgical Aortocoronary Bypass Status Inactive V45.81 Dec 15, 2017 July 27, 2006 Entered By: KAIN WHITLOCK Comment: in 1999, [facility], [place]Sep 15, 2008 Entered By: KAIN WHITLOCK Comment: [facility] september 12, [place] KAIN WHITLOCK [facility] Postsurgical Percutaneous Transluminal Coronary Angioplasty Status Inactive V45.82 Dec 15, 2017 Dec 01, 2010 Entered By: KAIN WHITLOCK Comment: /2011. dr woodward. promus drug eluting stent KAIN WHITLOCK [facility] Sensorineural Hearing Loss * (ICD-9-CM 389.10) Inactive 389.10 Dec 15, 2017 KAIN WHITLOCK [facility] Tinnitus * (ICD-9-CM 388.30) Inactive 388.30 Dec 15, 2017 [facility] Radiology Reports: +/- 30 days of [...] for repair. Intermittent, weak. Mailed to [x] cutting table operator [ ] [facility]. P: [ ] Will contact after hearing aid(s) are received back from repair. [x] Mail hearing aids to after repair. [ ] scheduled for return visit. [ ] Return to clinic if additional follow-up is needed. [facility] /evelyne/ JORGE LUIS DAVIS HEALTH INSURANCE AUDITOR Signed: 04/12/2019 08:24 /evelyne/ LAMAR Frausto STACK SUPERVISOR Cosigned: 04/12/2019 08:30 04/17/2019 ADDENDUM STATUS: COMPLETED Gonzalez's rcvd - elect, housing and rcvr repl. Prog melva. Mailed gonzalez's to vet. /evelyne/ JORGE LUIS DAVIS HEALTH INSURANCE AUDITOR Signed: 04/17/2019 13:40 /evelyne/ LAMAR Frausto STACK SUPERVISOR Cosigned: 04/17/2019 16:24 JORGE LUIS DAVIS [facility]
--- OUTSIDE RECORDS SUMMARY | 2019-11-11 10:51 | XMS REPORT | Encounter Summary ---
Author Author Department [facility] YORDAN sanders Organization Department [facility] Address [address] [place] [address] Phone Unavailable Care Team Providers Care Proposal Lead Writer Name Role Phone HEIKEMALLORIE PCP Unavailable Insurance [...] MEDICARE SUPPLEMENT Sep 24, 2002 PLAN F [id number] [phone] YORDAN HAMILTON PATIENT MEDICARE (WNR) MEDICARE (M) PART B Mar 27, 2001 PART B [id number] [id number] [phone] YORDAN HAMILTON JR PATIENT MEDICARE (WNR) MEDICARE (M) PART A May 26, 1999 PART A [id number] [phone] YORDAN HAMILTON JR PATIENT Selected Encounter This section includes the information on record at [place] for the Encounter. Date/Time Encounter Type Encounter Description Reason Provider Source Feb 01, 2019 08:49 AM Outpatient Encounter ADMIN PAT ACTIVTIES (MASNO NCT) [facility] IHE Encounter Template Text not used by [place] [...] Adverse Reactions (ADR s) on record with [place] for the patient. The data comes from [...] [place] pharmacy in the last 15 m ont, [...] ready yet.Transferred = A prescription moved to [place]'s new electronic health record. Take your medications [...] TIMES A DAY Non-VA Documented by: ROSALBA BAGUH nted at: ANGELA BANERJEE TEMAZEPAM 15MG CAP [...] problems (conditions). The data comes from all [place] treatment facilities. Problem Status Problem Code Date of Onset Date of Resolution Comm ent(s) Provider Source Bilateral tinnitus (SNOMED CT 9573682418131) Active 9356265977961 LAMAR MARTIN [facility] Bladder cancer Active 190517906 KAIN WHITLOCK [facility] Chronic kidney disease stage 3 Active 689117975 KAIN WHITLOCK [facility] History of percutaneous transluminal coronary angioplasty Active 360426451 [facility] HTN - Hypertension ([facility] 33269315) Active 24946333 AMAURI,ROSALBA [facility] Hyperlipidemia Active 77268717 KAIN WHITLOCK [facility] Hypothyroidism Active 28271055 KAIN WHITLOCK [facility] Impotence of organic origin Active 319832330 KAIN VENTURA [facility] Sensorineural hearing loss, bilateral Active 539492332 MIKKI FRITZ [facility] Arthritis * (ICD-9-CM 716.90) Inactive 716.90 NovSep 18, 2007 Entered By: KAIN WHITLOCK Comment: knees bilatSep 15, 2008 Entered By: KAIN WHITLOCK Comment: left knee "scrapped" in 2007 MALLORIE BURROUGHS [facility] CAD * (ICD-9-CM 414.9) Inactive 414.9 Dec 15, 2017 ASK DVEEN SERRANO [facility] HYPERLIPIDEMIA NEC/NOS 272.4 Inactive 272.4 Dec 15 18 ENRIQUE SMALLWOOD [facility] HYPERTENSION NOS 401.9 Inactive 401.9 Dec 15, 2017 SO ENRIQUE AGUILERA [facility] 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 KAIN [facility]LOCK [facility] Hypothyroidism Inactive 244.9 Dec 15, 2017 KAIN WHITLOCK [facility] IMPAIRED FASTING GLUCOSE. Inactive 799.9 Dec 15, 2017 [facility] Knee Joint replacement Status (Prosthetic or Artificial Device) Inactive V43.65 Dec 15, 2017 Jan 17, 2012 Entered By: KAIN BAI Comment: left. juancarlos ceron mo.- oct KAIN WHITLOCK [facility] Personal History of Tobacco Use Inactive V15.82 Dec 15, 2017 July 27, 2006 Entered By: KAIN WHITLOCK Comment: quit smoking in 1999 after cabg KAIN WHITLOCK [facility] Postsurgical Aortocoronary Bypass Status Inactive V45.81 Dec 15, 2017 July 27, 2006 Entered By: KAIN WHITLOCK Comment: in 1999, [facility], [place], [place]Sep 15, 2008 Entered By: KAIN WHITLOCK Comment: [facility] sept[place] 12, [place] KAIN WHITLOCK [facility] Postsurgical Percutaneous Transluminal Coronary Angioplasty Status Inactive V45.82 Dec 15, 2017 Dec 01, 2010 Entered By: KAIN WHITLOCK Comment: /2011. dr woodward. promus drug eluting stent KAIN WHITLOCK [facility] Sensorineural Hearing Loss * (ICD-9-CM 389.10) Inactive 389.10 Dec 15, 2017 KAIN WHITLOCK [facility] Tinnitus * (ICD-9-CM 388.30) Inactive 388.30 Dec 15, 2017 [facility] Radiology Reports: +/- 30 days of the encounter No Data Provided for This Section Pathology Reports: +/- 30 days of the encounter No Data Provided for This Section Encounter Notes: All associated encounter notes This section contains the clinical notes associated to the Encounter. Date/Time Encounter Note(s) Provider Source Feb 01, 2019 08:49 AM AUDIOLOGY NOTE: LOCAL TITLE: ID-AUDIOLOGY/ESTABLISHED STANDARD TITLE: AUDIOLOGY NOTE DATE OF NOTE: FEB 01, 2019@08:49 ENTRY DATE: FEB 01, 2019@08:49:16 AUTHOR: JORGE LUIS DAVIS EXP COSIGNER: LAMAR MARTIN URGENCY: STATUS: COMPLETED Ordered batteries, domes and wax filters. /evelyne/ JORGE LUIS DAVIS HEALTH CATTLE BROKER Signed: 02/01/2019 08:49 /evelyne/ LAMAR Frausto CORN BREEDER Cosigned: 02/01/2019 09:03 [facility] LUIS DAVIS [facility]
--- OUTSIDE RECORDS SUMMARY | 2019-11-11 10:52 | XMS REPORT ---
Author Author Department [facility] YORDAN sanders Organization Department [facility] Address [address] [place] [address] Phone Unavailable Care Team Providers Care Utility Agent Name Role Phone HEIKE MALLORIE PCP Unavailable [...] MEDICARE SUPPLEMENT Sep 24, 2002 PLAN F [id number] [phone] YORDAN HAMILTON PATIENT MEDICARE (WNR) MEDICARE (M) PART B Mar 27, 2001 PART B [id number] PW80 [phone] YORDAN HAMILTON JR PATIENT MEDICARE (WNR) MEDICARE (M) PART A May 26, 1999 PART A [id number] YORDAN HAMILTON JR PATIENT Selected Encounter This section includes the information on record at [place] for the Encounter. Date/Time Encounter Type Encounter Description Reason Provider Source Oct 14, 2019 08:00 AM Outpatient Encounter ADMIN PAT ACTIVTIES (MASNO NCT) [facility] 15 IHE Encounter Template Text not used by [place] Assessments - Encounter Diagnoses No Data Provided [...] Adverse Reactions (ADR s) on record with [place] for the patient. The data comes from a ll [place] treatment facilities. It does not list Allergies/ADRs that were removed or entered in error. Some allergies/ADRs may be reported in t he Immunization section. Allergen Event Date Event Type Reaction(s) Severity Source No Known Allergies [facility], [facility] 15 Medications: VA dispensed (-15 months) and Non-VA Documented (Obtained Outside A) Section Date Range: 1) prescriptions processed by a [place] pharmacy in the last 15 m ont, and 2) all medications recorded in the [place] medical record as "non-VA medic ations". Pharmacy terms refer to [place] pharmacy's work on prescriptions. VA patient s are advised to take their medications as instructed by their health care team. The data comes from all [place] treatment facilities. Glossary of Pharmacy Terms:Active = A prescription that can be filled at the local [place] pharmacy.Active: On Hold = An active prescription that will not be filled until pharmacy resolves the issue.Active: Susp = An active prescription that is not scheduled to be filled yet.Clinic Order = A medication received during a visit to a [place] clinic or emergency department (currently not available).Discontinued [...] ready yet.Transferred = A prescription moved to [place]'s new electronic health record. Take your medications [...] problems (conditions). The data comes from all [place] treatment facilities. Problem Status Problem Code Date of Onset Date of Resolution Comm ent(s) Provider Source Bilateral tinnitus (SNOMED CT 2722321177436) Active 1026314361364 LAMAR MARTIN [facility] Bladder cancer Active 626850202 KAIN WHITLOCK [facility] Chronic kidney disease stage 3 Active 314761394 KAIN WHITLOCK [facility] History of percutaneous transluminal coronary angioplasty Active 467177059 [facility] HTN - Hypertension ([facility] 88539393) Active 42962063 [facility] Hyperlipidemia Active 57875715 KAIN WHITLOCK [facility] Hypothyroidism Active 40720042 KAIN WHITLOCK [facility] Impotence of organic origin Active 493525728 KAIN VENTURA [facility] Sensorineural hearing loss, bilateral Active 309367154 MIKKI FRITZ [facility] Arthritis * (ICD-9-CM 716.90) Inactive 716.90 NovSep 18, 2007 Entered By: KAIN WHITLOCK Comment: knees bilatSep 15, 2008 Entered By: KAIN WHITLOCK Comment: left knee "scrapped" in 2007 MALLORIE BURROUGHS [facility] CAD * (ICD-9-CM 414.9) Inactive 414.9 Dec 15, 2017 ASK DEVEN SERRANO [facility] HYPERLIPIDEMIA NEC/NOS 272.4 Inactive 272.4 Dec 15 18 ENRIQUE SMALLWOOD [facility] HYPERTENSION NOS 401.9 Inactive 401.9 Dec 15, 2017 SO WILLYENRIQUE [facility] 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 KAIN WHITLOCK [facility] Hypothyroidism Inactive 244.9 Dec 15, 2017 KAIN WHITLOCK [facility] IMPAIRED FASTING GLUCOSE. Inactive 799.9 Dec 15, 2017 KAIN WHITLOCK [facility] Knee Joint replacement Status (Prosthetic or Artificial Device) Inactive V43.65 Dec 15, 2017 Jan 17, 2012 Entered By: KAIN BAI Comment: left. juancarlos ceron,dana.- oct [facility] Personal History of Tobacco Use Inactive V15.82 Dec 15, 2017 July 27, 2006 Entered By: KAIN WHITLOCK Comment: quit smoking in yr 1999 after cabg [facility] Postsurgical Aortocoronary Bypass Status Inactive V45.81 Dec 15, 2017 July 27, 2006 Entered By: KAIN WHITLOCK Comment: in 1999, [facility]Sep 15, 2008 Entered By: KAIN WHITLOCK Comment: [facility] sept[place] 12, [place] [facility]AIN [facility] Postsurgical Percutaneous Transluminal Coronary Angioplasty Status Inactive V45.82 Dec 15, 2017 Dec 01, 2010 Entered By: KAIN WHITLOCK Comment: /2011. dr woodward. promus drug eluting stent KAIN WHITLOCK [facility] Sensorineural Hearing Loss * (ICD-9-CM 389.10) Inactive 389.10 Dec 15, 2017 K[facility] Tinnitus * (ICD-9-CM 388.30) Inactive 388.30 Dec 15, 2017 WHITLOCKKAIN SANCHEZ [facility] Radiology Reports: +/- 30 days [...] LOCAL TITLE: COMMUNITY CARE CONSULT RESULTS NOTE ND STANDARD TITLE: NONVA CONSULT DATE OF NOTE: OCT 15, 2019@08:00 ENTRY DATE: OCT 29, 2019@15:05:06 AUTHOR: ROBERT REYNA EXP COSIGNER: URGENCY: STATUS: COMPLETED The following Non VA Care consult has been completed. See scanned document for report. NON VA Care Consult Results Other: COMMUNITY CARE-AUDIO/[facility]/10/14/2019&10/15/2019 /evelyne/ ROBERT REYNA INVESTMENT SPECIALIST Signed: 10/29/2019 15:06 ROBERT [facility]NA[facility] SERVICES[facility]
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
--- NOTE | 2019-11-11 11:08 | Diagnostic Imaging Report ---
PROCEDURE: US left lower extremity venous. TECHNIQUE: Multiple Real-time grayscale images were obtained over the left lower extremity in various projections. Additional duplex Doppler and color Doppler images were also obtained. DATE: November 11, 2019. INDICATION: 84-year-old male, left calf pain and swelling. COMPARISON: September 08, 2008. FINDINGS: The left common femoral vein, left superficial femoral vein, and left popliteal vein are all compressible with normal blood flow and response to augmentation. The visualized portions of the deep femoral vein are patent. The posterior tibial and peroneal veins are patent. IMPRESSION: Negative for left lower extremity deep venous thrombosis. Dictated by: Dictated on workstation # [id number]
[2019-11-11 11:31] LABS: HEMOGLOBIN 13.2 G/DL (13.3-17.7); MEAN PLATELET VOLUME 9.4 FL (7.4-10.4); RED CELL DISTRIBUTION WIDTH 15.2 % (10.0-14.5); WHITE BLOOD COUNT 5.5 10^3/uL (4.3-11.0)
[2019-11-11 11:40] LABS: POTASSIUM 4.8 MMOL/L (3.6-5.0)
[2019-11-11 11:41] LABS: CALCIUM 8.6 MG/DL (8.5-10.1)
[2019-11-11 11:46] LABS: CREATININE SERUM 2.28 MG/DL (0.60-1.30)
[2019-11-11 11:48] LABS: MAGNESIUM 1.9 MG/DL (1.6-2.4)
[2019-11-11 12:17] VITALS: BP 156/78
== END 2019-11-11 12:18 | disposition home or self-care (01) ==
LOC: EDUNIT# 09:59 → ER 10:00
DX: M79.605 Pain in left leg (principal); M79.89 Other specified soft tissue disorders; I25.10 Atherosclerotic heart disease of native coronary artery without angina pectoris; I25.2 Old myocardial infarction; E78.00 Pure hypercholesterolemia, unspecified; Z87.891 Personal history of nicotine dependence; Z79.82 Long term (current) use of aspirin; Z95.1 Presence of aortocoronary bypass graft; Z95.5 Presence of coronary angioplasty implant and graft; Z85.46 Personal history of malignant neoplasm of prostate; Z85.51 Personal history of malignant neoplasm of bladder; Z82.49 Family history of ischemic heart disease and other diseases of the circulatory system
CPT/HCPCS: 36415; 80048; 83735; 85027

== ENCOUNTER 2020-05-04 10:23 | Emergency (ER) | payer MEDICARE ==
[~2020-05-04] VITALS: Ht 173 cm; Wt 91.0 kg
[~2020-05-04 10:23] MED LIST changes: -CALC-6 PO; +CALC1TAB84 PO
--- NOTE | 2020-05-04 11:47 | ED Abdominal Pain ---
General Chief Complaint: Abdominal/GI Problems Stated Complaint: SIDE PAIN, HERNIA Nursing Triage Note: PT AMB TO FT 2. PT STATES HE HAS INTERMITTEN ABD PAIN. 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 STATES TODAY THE PAIN INTERMITTENLY IS UNBEARABLE. HE IS CURRENTLY HAVING NO PAIN AT THIS TIME. Sepsis Screen: No Definite Risk Source of Information: Patient Exam Limitations: No Limitations History of Present Illness Date Seen by Provider: May 04, 2020 Time Seen by Provider: 11:45 Initial Comments To ER with reports of right side pain lateral to the urinary stoma. He has a solitary right kidney. He has been having some intermittent right-sided abdominal pains where he also has a hernia. He states that the pains this morning have been intermittently unbearable. Currently, no pain no fever no chills. Timing/Duration: 1-2 Days Severity/Quality: Moderate Radiation: No Radiation Allergies and Home Medications Allergies Coded Allergies: NKANo Known Allergies (Verified Allergy, Mild, 11/24/11) Uncoded Allergies: BEE STINGS (Allergy, Severe, SOA/HIVES, 11/01/10) Home Medications Acetaminophen 325 Mg Capsule, 650 MG PO Q6H PRN for PAIN-MILD (1-4), (Reported) Aspirin 81 Mg Tablet., 81 MG PO , (Reported) Calcium Carbonate/Vitamin D3 1 Each Tablet, 1 TAB PO BID, (Reported) Diltiazem HCl 90 Mg Tablet, 90 MG PO HS, (Reported) Docusate Sodium 100 Mg Capsule, 100 MG PO DAILY, (Reported) Gemfibrozil 600 Mg Tablet, 600 MG PO DAILY, (Reported) Isosorbide Mononitrate 30 Mg Tab.er.24h, 30 MG PO DAILY, (Reported) Levothyroxine Sodium 50 Mcg Tablet, 50 MCG PO DAILY, (Reported) Lisinopril 5 Mg Tablet, 2.5 MG PO HS, (Reported) Loratadine/Pseudoephedrine 1 Each Tab.er.12h, 1 EACH PO Q12H PRN for CONGESTION, (Reported) Multivitamin 1 Each Tablet, 1 TAB PO DAILY, (Reported) Omeprazole 40 Mg Capsule.dr, 40 MG PO DAILY, (Reported) Ondansetron 4 Mg Tab.rapdis, 4 MG PO Q6H PRN for NAUSEA/VOMITING, (Reported) Pramipexole Di-HCl 0.25 Mg Tablet, 0.25 MG PO DAILY, (Reported) Rosuvastatin Calcium 20 Mg Tablet, 20 MG PO HS, (Reported) Temazepam 30 Mg Capsule, 30 MG PO HS, (Reported) Tramadol HCl 50 Mg Tablet, 50 MG PO Q6H PRN for PAIN-MODERATE (5-7), (Reported) [[place]/Zinc/Turmeric] , 1 CAP PO BID, (Reported) Patient Home Medication List Home Medication List Reviewed: Yes Review of Systems Review of Systems Constitutional: see HPI EENTM: No Symptoms Reported Respiratory: No Symptoms Reported Cardiovascular: No Symptoms Reported Gastrointestinal: See HPI, Abdominal Pain Genitourinary: No Symptoms Reported Musculoskeletal: no symptoms reported Skin: no symptoms reported Psychiatric/Neurological: No Symptoms Reported Endocrine: No Symptoms Reported Hematologic/Lymphatic: No Symptoms Reported Past Ngkqqob-Ehkypw-Brvwkb Hx Patient Social History Alcohol Use: Denies Use Former Smoker, Quit: Jun 07, 1974 2nd Hand Smoke Exposure: No Recent Infectious Disease Expo: No Recent Hopitalizations: No Immunizations Up To Date Tetanus Booster (TDap): Unknown Date of Pneumonia Vaccine: Feb 03, 2015 Date of Influenza Vaccine: Jan 12, 2019 Seasonal Allergies Seasonal Allergies: Yes Past Medical History Surgeries: Yes (LEFT WRIST, LEFT KNEE SCOPE, TOTAL LEFT KNEE, HEMORRHOIDS,TURP ) Abdominal, Bladder Surgery, CABG, Coronary Stent, Joint Replacement, Nephrectomy Respiratory: No Currently Using CPAP: No Currently Using BIPAP: No Cardiac: Yes (STENTS X5) Coronary Artery Disease, Heart Attack, High Cholesterol Neurological: No Reproductive Disorders: No Sexually Transmitted Disease: No HIV/AIDS: No Genitourinary: Yes (urostomy) Prostate Problems Gastrointestinal: Yes (colostomy) Obstructive Bowel Musculoskeletal: Yes Arthritis Endocrine: No Hearing Impairment: Denies, Hearing Aide Right, Hearing Aide Left Cancer: Yes (NOSE) Bladder, Prostate Psychosocial: No Integumentary: No Blood Disorders: No Adverse Reaction/Blood Tranf: No Family Medical History Arthritis 19 FATHER 19 MOTHER Diabetes mellitus 19 FATHER Myocardial infarction 19 FATHER 19 MOTHER Respiratory disorder G8 SISTER No Family History of: AIDS Bill's disease Alcoholism Alzheimer's disease Cancer of mouth Colon cancer Completed stroke Dementia Kidney disease Parkinson's disease Prostate cancer Psychosocial problem Seizure disorder Severe allergy Thyroid disease Tuberculosis No Pertinent Family Hx Physical Exam Vital Signs Vital Signs - First Documented 05/04/20 10:37 Temp 36.9 Pulse 81 Resp 20 B/P (MAP) 143/74 (97) Pulse Ox 94 O2 Delivery Room Air Capillary Refill : Less Than 3 Seconds Height/Weight/BMI Height: 5'7.00" Weight: 195lbs. 0oz. [id number]; 30.00 BMI Method:Stated General Appearance: WD/WN, no apparent distress HEENT: PERRL/EOMI, normal ENT inspection Respiratory: no respiratory distress, no accessory muscle use Gastrointestinal: normal bowel sounds, soft, tenderness Extremities: normal range of motion, non-tender Neurologic/Psychiatric: alert, normal mood/affect, oriented x 3 Skin: normal color, warm/dry Procedures/Interventions Suture Size: 4-0 Progress/Results/Core Measures Results/Orders Lab Results Laboratory Tests Test 05/04/20 11:55 05/04/20 12:10 Range/Units White Blood Count 4.4 4.3-11.0 10^3/uL Red Blood Count 4.22 L 4.30-5.52 10^6/uL Hemoglobin 13.1 L 13.3-17.7 g/dL Hematocrit 40 40-54 % Mean Corpuscular Volume 96 80-99 fL Mean Corpuscular Hemoglobin 31 25-34 pg Mean Corpuscular Hemoglobin Concent 32 32-36 g/dL Red Cell Distribution Width 14.5 10.0-14.5 % Platelet Count 175 130-400 10^3/uL Mean Platelet Volume 9.7 9.0-12.2 fL Immature Granulocyte % (Auto) 1 % Neutrophils (%) (Auto) 72 42-75 % Lymphocytes (%) (Auto) 12 12-44 % Monocytes (%) (Auto) 9 0-12 % Eosinophils (%) (Auto) 6 0-10 % Basophils (%) (Auto) 1 0-10 % Neutrophils # (Auto) 3.2 1.8-7.8 10^3/uL Lymphocytes # (Auto) 0.5 L 1.0-4.0 10^3/uL Monocytes # (Auto) 0.4 0.0-1.0 10^3/uL Eosinophils # (Auto) 0.3 0.0-0.3 10^3/uL Basophils # (Auto) 0.0 0.0-0.1 10^3/uL Immature Granulocyte # (Auto) 0.0 0.0-0.1 10^3/uL Sodium Level 141 135-145 MMOL/L Potassium Level 5.2 H 3.6-5.0 MMOL/L Chloride Level 107 98-107 MMOL/L Carbon Dioxide Level 24 21-32 MMOL/L Anion Gap 10 5-14 MMOL/L Blood Urea Nitrogen 27 H 7-18 MG/DL Creatinine 2.54 H 0.60-1.30 MG/DL Estimat Glomerular Filtration Rate 24 BUN/Creatinine Ratio 11 Glucose Level 118 H 70-105 MG/DL Calcium Level 9.2 8.5-10.1 MG/DL Corrected Calcium 9.1 8.5-10.1 MG/DL Total Bilirubin 0.4 0.1-1.0 MG/DL Aspartate Amino Transf (AST/SGOT) 21 5-34 U/L Alanine Aminotransferase (ALT/SGPT) 21 0-55 U/L Alkaline Phosphatase 76 40-136 U/L Total Protein 7.5 6.4-8.2 GM/DL Albumin 4.1 3.2-4.5 GM/DL Lipase 36 8-78 U/L Urine Color YELLOW Urine Clarity CLEAR Urine pH 8.0 5-9 Urine Specific [place] 1.015 L 1.016-1.022 Urine Protein 1+ H NEGATIVE Urine Glucose (UA) NEGATIVE NEGATIVE Urine Ketones NEGATIVE NEGATIVE Urine Nitrite NEGATIVE NEGATIVE Urine Bilirubin NEGATIVE NEGATIVE Urine Urobilinogen 0.2 < = 1.0 MG/DL Urine Leukocyte Esterase 1+ H NEGATIVE Urine RBC (Auto) 2+ H NEGATIVE Urine RBC 25-50 H /HPF Urine WBC 25-50 H /HPF Urine Crystals PRESENT H /LPF Urine Triple Phosphate Crystals FEW H /LPF Urine Bacteria MODERATE H /HPF Urine Casts NONE /LPF Urine Mucus NEGATIVE /LPF Urine Culture Indicated YES My Orders Orders - LOUISA ARBOLEDA BACK TACKER Cbc With Automated Diff (05/04/20 11:42) Comprehensive Metabolic Panel (05/04/20 11:42) Lipase (05/04/20 11:42) Ed Iv/Invasive Line Start (05/04/20 11:42) Ct Abdomen/Pelvis Wo (05/04/20 11:42) Ua Culture If Indicated (05/04/20 13:35) Antacid Suspension (Mylanta Suspension (05/04/20 14:00) Lidocaine 2% Viscous 15 Ml (Xylocaine Vi (05/04/20 14:00) Urine Culture (05/04/20 12:10) Ceftriaxone For Iv Use (Rocephin For I (05/04/20 14:15) Medications Given in ED Current Medications Medications Dose Ordered Sig/Fahad Route Start Time Stop Time Status Last Admin Dose Admin Al Hydrox/Mg Hydrox/Simethicone 30 ml ONCE ONCE PO 05/04/20 14:00 05/04/20 14:01 DC 05/04/20 14:10 30 ML Lidocaine HCl 15 ml ONCE ONCE PO 05/04/20 14:00 05/04/20 14:01 DC 05/04/20 14:10 15 ML Vital Signs/I&O 05/04/20 10:37 Temp 36.9 Pulse 81 Resp 20 B/P (MAP) 143/74 (97) Pulse Ox 94 O2 Delivery Room Air Blood Pressure Mean: 97 Diagnostic Imaging Diagonstic Imaging: CT Comments NAME: YORDAN HAMILTON [facility] REC#: [id number] PT STATUS: REG ER : 1935 PHYSICIAN: LOUISA ARBOLEDA APRN ADMIT DATE: 05/04/20/ER Draft Date of Exam:05/04/20 CT ABDOMEN/PELVIS WO PROCEDURE: CT abdomen and pelvis without contrast. TECHNIQUE: Multiple contiguous axial images were obtained through the abdomen and pelvis without the use of intravenous contrast. Auto Exposure Controls were utilized during the CT exam to meet ALARA standards for radiation dose reduction. INDICATION: Abdominal pain. COMPARISON: Correlation is made with prior CT from 12/19/2018. FINDINGS: The lung bases are clear. Liver contains multiple calcified granulomas. Gallbladder is unremarkable. No biliary ductal dilatation is seen. Pancreas and spleen are unremarkable apart from multiple splenic granulomas. No adrenal mass is detected. Patient has a solitary right kidney. No definite hydronephrosis is seen. 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 There are postsurgical changes of cystectomy. Aorta is calcified but nonaneurysmal. Bowel loops are normal in caliber. There is no free fluid or fluid collection. There is no bowel obstruction. No inflammatory changes are seen. No definite abdominal or pelvic lymphadenopathy is detected. IMPRESSION: Postsurgical changes with urinary diversion and right lower quadrant ostomy. No definite complicating features are detected. No acute abnormality is identified. Dictated on workstation # [id number] Dict: 05/04/20 1344 Trans: 05/04/20 1351 [id number] [id number] Interpreted by: JOVITA GARNICA MD Electronically signed by: Departure Impression Primary Impression: Urinary tract infection Qualified Codes: N30.00 - Acute cystitis without hematuria Disposition: HOME, SELF-CARE Condition: Stable Departure-Patient Inst. Decision time for Depature: 14:22 Referrals: EZIO ROSSI MD (PCP/Family) Primary Care Physician Patient Instructions: Urinary Tract Infection, Adult (DC) Scripts Cefdinir (Cefdinir) 300 Mg Capsule 300 MG PO BID, #20 CAP Prov: LOUISA ARBOLEDA APRN 05/04/20 LOUISA ARBOLEDA APRN May 04, 2020 11:46
[2020-05-04 12:04] LABS: BASOPHILS % (AUTO) 1 % (0-10); EOSINOPHILS # (AUTO) 0.3 10^3/uL (0.0-0.3); EOSINOPHILS % (AUTO) 6 % (0-10); HEMATOCRIT 40 % (40-54); HEMOGLOBIN 13.1 g/dL (13.3-17.7); LYMPHOCYTES # (AUTO) 0.5 10^3/uL (1.0-4.0); LYMPHOCYTES % (AUTO) 12 % (12-44); MEAN CORPUSCULAR HEMOGLOBIN 31 pg (25-34); MEAN CORPUSCULAR HGB CONC 32 g/dL (32-36); MEAN CORPUSCULAR VOLUME 96 fL (80-99); MEAN PLATELET VOLUME 9.7 fL (9.0-12.2); MONOCYTES # (AUTO) 0.4 10^3/uL (0.0-1.0); MONOCYTES % (AUTO) 9 % (0-12); NEUTROPHILS # (AUTO) 3.2 10^3/uL (1.8-7.8); NEUTROPHILS % (AUTO) 72 % (42-75); PLATELET COUNT 175 10^3/uL (130-400); WHITE BLOOD COUNT 4.4 10^3/uL (4.3-11.0)
[2020-05-04 12:32] LABS: ALBUMIN 4.1 GM/DL (3.2-4.5); POTASSIUM 5.2 MMOL/L (3.6-5.0)
[2020-05-04 12:33] LABS: CALCIUM 9.2 MG/DL (8.5-10.1)
[2020-05-04 12:35] LABS: TOTAL PROTEIN 7.5 GM/DL (6.4-8.2)
[2020-05-04 12:36] LABS: BILIRUBIN,TOTAL 0.4 MG/DL (0.1-1.0)
[2020-05-04 12:38] LABS: CREATININE SERUM 2.54 MG/DL (0.60-1.30)
[2020-05-04 13:50] LABS: BILIRUBIN,URINE NEGATIVE (NEGATIVE); CLARITY,URINE CLEAR; COLOR,URINE YELLOW; GLUCOSE, URINE (UA) NEGATIVE (NEGATIVE); KETONES,URINE NEGATIVE (NEGATIVE); LEUKOCYTE ESTERASE ,URINE 1+ (NEGATIVE); NITRITE,URINE NEGATIVE (NEGATIVE); PROTEIN,URINE 1+ (NEGATIVE)
--- NOTE | 2020-05-04 13:51 | Diagnostic Imaging Report ---
PROCEDURE: CT abdomen and pelvis without contrast. TECHNIQUE: Multiple contiguous axial images were obtained through the abdomen and pelvis without the use of intravenous contrast. Auto Exposure Controls were utilized during the CT exam to meet ALARA standards for radiation dose reduction. INDICATION: Abdominal pain. COMPARISON: Correlation is made with prior CT from 12/19/2018. FINDINGS: The lung bases are clear. Liver contains multiple calcified granulomas. Gallbladder is unremarkable. No biliary ductal dilatation is seen. Pancreas and spleen are unremarkable apart from multiple splenic granulomas. No adrenal mass is detected. Patient has a solitary right kidney. No definite hydronephrosis is seen. 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 There are postsurgical changes of cystectomy. Aorta is calcified but nonaneurysmal. Bowel loops are normal in caliber. There is no free fluid or fluid collection. There is no bowel obstruction. No inflammatory changes are seen. No definite abdominal or pelvic lymphadenopathy is detected. IMPRESSION: Postsurgical changes with urinary diversion and right lower quadrant ostomy. No definite complicating features are detected. No acute abnormality is identified. Dictated by: Dictated on workstation # [id number]
[2020-05-04] MEDS ORDERED: LIDOCAINE 2% VISCOUS 15 ML UDC PO ONE (14:00)
[2020-05-04] MEDS ORDERED: ANTACID SUSP 30 ML UDC (MYLANTA) PO ONE (14:00)
[2020-05-04 14:02] LABS: BACTERIA,URINE MODERATE /HPF; RBC,URINE 25-50 /HPF; TRIPLE PHOSPHATE CRYSTAL,UR FEW /LPF; WBC,URINE 25-50 /HPF
[2020-05-04 14:15] VITALS: BP 112/73
[2020-05-04] MEDS ORDERED: cefTRIAXone FOR IV USE 1,000 MG in WATER (STERILE) FOR INJECTION 10 ML IV ONE (14:15)
[2020-05-04] MEDS ORDERED: CEFD300C3 PO (14:23)
== END 2020-05-04 14:15 | disposition home or self-care (01) ==
LOC: EDUNIT# 10:23 → ER 10:26
DX: N39.0 Urinary tract infection, site not specified (principal); I25.2 Old myocardial infarction; E78.00 Pure hypercholesterolemia, unspecified; Z85.46 Personal history of malignant neoplasm of prostate; Z85.51 Personal history of malignant neoplasm of bladder; Z82.61 Family history of arthritis; Z82.49 Family history of ischemic heart disease and other diseases of the circulatory system; Z83.3 Family history of diabetes mellitus; Z95.5 Presence of coronary angioplasty implant and graft; Z95.1 Presence of aortocoronary bypass graft; Z87.891 Personal history of nicotine dependence; Z79.82 Long term (current) use of aspirin
CPT/HCPCS: 36415; 74176; 80053; 81000; 83690; 85025; 87088

== ENCOUNTER → 2020-08-06 | Outpatient (CLI) | payer MEDICARE ==
[~2020-08-06] MED LIST changes: +CIPR500T5 PO; -GEMF600T8 PO; +GEMF600T88 PO; -ISOS30TA3 PO; +ISOS30TA82 PO; -LISI-556 PO; +LISI-729 PO
--- NOTE | 2020-08-06 17:02 | Diagnostic Imaging Report ---
INDICATION: Foot pain. COMPARISON: None available. TECHNIQUE: Three radiographs of the right foot dated 08/06/2020. FINDINGS: No acute fracture or dislocation. No destructive osseous process. Scattered degenerative changes are present, greatest within the second through fifth DIP joints. Mild degenerative changes associated with the first MTP joint also noted. Small posterior and plantar calcaneal enthesophytes. Chronic avulsion fracture arising from the talar neck. No suspicious radiopaque foreign body. IMPRESSION: No acute osseous abnormality with scattered degenerative changes, greatest involving the DIP joints of the second through fifth digits. Dictated by: Dictated on workstation # [id number]
== END ==
LOC: RAD 16:40
PROVIDERS: ATTEND Nurse Practitioner Family
DX: M19.071 Primary osteoarthritis, right ankle and foot (principal)
CPT/HCPCS: 73630

== ENCOUNTER → 2020-10-01 | Outpatient (CLI) | payer MEDICARE ==
[~2020-10-01] MED LIST changes: +ASPI-1238 PO; +ATOR40TA70 PO; +CALCIUM; +CRAN500T3 PO; +DEXT1TAB3 PO; +DILT30TA PO; +FERR-84 PO; +FLUT9.9S NS; +GABA300C PO; +ISOS60TA63 PO; +LACT1CAP8 PO; +LEVO750T39 PO; +LORA10TA76 PO; +MAG; +MELA1TAB20 PO; -OMEP40CA27 PO; +OMEP40CA6 PO; +PRAM1TAB2 PO; +QUET100T33 PO; +QUET25TA34 PO; +QUET50TA22 PO; +RT-ALBUINH INH; +TRAM50TA3 PO; +VITA1TAB17 PO; +ZINC; +vit b complex PO
--- NOTE | 2020-10-01 18:29 | Diagnostic Imaging Report ---
INDICATION: Hematuria. EXAMINATION: Abdominal film was obtained at 5:12 p.m. FINDINGS: The bowel gas pattern is unremarkable. There are surgical sutures in the right side of the abdomen with surgical clips. There are no overt radiopaque calculi overlie the renal shadows. There are surgical clips in the pelvis. There is osteopenia. IMPRESSION: Unremarkable bowel gas pattern. Postoperative changes as above. No definitive calculi overlying the renal shadows. Consider CT if hematuria persists. Dictated by: Dictated on workstation # [id number]
== END ==
LOC: RAD 16:45
PROVIDERS: ATTEND Nurse Practitioner Family
DX: R31.9 Hematuria, unspecified (principal); Z98.890 Other specified postprocedural states
CPT/HCPCS: 74018

== ENCOUNTER → 2020-10-07 | Outpatient (CLI) | payer MEDICARE ==
--- NOTE | 2020-10-07 16:13 | Diagnostic Imaging Report ---
PROCEDURE: CT abdomen and pelvis without contrast. TECHNIQUE: Multiple contiguous axial images were obtained through the abdomen and pelvis without the use of intravenous contrast. Auto Exposure Controls were utilized during the CT exam to meet ALARA standards for radiation dose reduction. INDICATION: Hematuria. COMPARISON: Correlation is made with prior CT from 05/04/2020. FINDINGS: The lung bases are clear. No discrete liver mass is identified. Gallbladder is contracted. There is no biliary ductal dilatation. Pancreas and spleen are unremarkable. There are numerous granulomas throughout the liver and spleen. No adrenal mass is detected. Solitary right kidney is again noted. Patient does have a urinary diversion in the right lower quadrant, with right lower quadrant ostomy. No renal calculi or hydronephrosis is detected. Aorta is calcified but nonaneurysmal. The bowel loops are unremarkable apart from diverticulosis of the sigmoid and descending colon. There is no evidence of acute diverticulitis. There is no free fluid or fluid collection. Bladder is surgically absent. Prostate appears to be surgically absent. No abdominal or pelvic lymphadenopathy is detected. IMPRESSION: Stable CT abdomen and pelvis without contrast when compared to exam from 05/04/2020. Postsurgical changes are noted. There is uncomplicated diverticulosis. No definite urinary tract calculi or obstruction is identified. Dictated by: Dictated on workstation # [id number]
== END ==
LOC: RAD 15:45
PROVIDERS: ATTEND Nurse Practitioner Family
DX: K57.30 Diverticulosis of large intestine without perforation or abscess without bleeding (principal); Z98.890 Other specified postprocedural states
CPT/HCPCS: 74176

== ENCOUNTER 2021-02-05 10:56 | Outpatient (RCR) | payer MEDICARE ==
[~2021-02-05 10:56] MED LIST changes: -QUET25TA34 PO; +QUET25TA35 PO; -QUET50TA22 PO; +QUET50TA23 PO
== END 2021-02-05 12:15 | disposition home or self-care (01) ==
PROVIDERS: ATTEND Orthopaedic Surgery
DX: M17.11 Unilateral primary osteoarthritis, right knee (principal); M17.12 Unilateral primary osteoarthritis, left knee; W19.XXXA Unspecified fall, initial encounter

== ENCOUNTER 2021-03-16 17:13 | Emergency (ER) | payer MEDICARE ==
[~2021-03-16] VITALS: Ht 172.7 cm; Wt 97.7 kg
[~2021-03-16 17:13] MED LIST changes: +CYCL10TA25 PO; -LISI-729 PO; +LISI5TAB20 PO
[2021-03-16] MEDS ORDERED: RT-ALBUTEROL/IPRATROPIUM 3 ML (DUONEB) VIAL INH ONE (18:00)
[2021-03-16] MEDS ORDERED: ONDANSETRON 4 MG/2 ML (SDV) Z0FRAN IVP ONE (18:00)
--- NOTE | 2021-03-16 18:06 | ED GI ---
General Chief Complaint: Abdominal/GI Problems Stated Complaint: VOMITING Nursing Triage Note: AMB TO ROOM WITH ONSET OF VOMITING AT 1300 TODAY. REPORTS TRIED TO GET ZOFRAN APPROVED BUT INSURANCE WOULD NOT APPROVE IT. SO SHE BROUGHT HIM TO THE ER. Source of Information: Patient Exam Limitations: No Limitations (YAW SPAULDING MD) History of Present Illness Date Seen by Provider: Mar 16, 2021 Time Seen by Provider: 17:43 Initial Comments This 85-year-old gentleman is brought to emergency room by his with concerns about nausea, vomiting, diarrhea, and confusion. He does have some dementia but has had increased confusion today. 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 He now has a right urostomy. His reports a change in urine quality today that tends to correlate with urinary tract infection by history, especially when combined with confusion. Patient has spent much of the day on the toilet with vomiting and diarrhea. He minimizes the symptoms and his states he under reports due to the dementia. He has been afebrile. He has chronic shortness of breath with no change in respiratory effort or cough. He is notably wheezing on exam. He is alert, talkative, and in good spirits. He has had some change in timing of his dementia medications recently but no change in dosing or types of medications. He denies any pain except for his chronic back pain. He has been triple vaccinated for COVID-19. (YAW SPAULDING MD) Allergies and Home Medications Allergies Coded Allergies: NKANo Known Allergies (Verified Allergy, Mild, 11/24/11) Uncoded Allergies: BEE STINGS (Allergy, Severe, SOA/HIVES, 11/01/10) Patient Home Medication List Home Medication List Reviewed: Yes (YAW SPAULDING MD) Acetaminophen (Tylenol) 325 Mg Capsule, 650 MG PO BID, (Reported) Entered as Reported by: IRAJ HOUSE on 05/10/19 8924 Albuterol Sulfate (Ventolin Hfa) 1 Puff Puff, 2 PUFF INH BID, (Reported) Entered as Reported by: HARRISON WAYNE on 09/12/20 1528 Aspirin (Aspirin EC) 81 Mg Tablet.dr, 81 MG PO TUES,SAT, (Reported) Entered as Reported by: VALENTIN ANTHONY on 09/14/20 1405 Atorvastatin Calcium (Atorvastatin Calcium) 40 Mg Tablet, 40 MG PO HS, (Reported) Entered as Reported by: HARRISON WAYNE on 09/12/20 1153 Cranberry Extract (Cranberry) 500 Mg Tablet, 500 MG PO BID, (Reported) Entered as Reported by: HARRISON WAYNE on 09/12/20 1213 Dextromethorphan HBr/Chlor-Mal (Coricidin Hbp Cough & Cold Tab) 1 Each Tablet, 1 EACH PO HS, (Reported) Entered as Reported by: HARRISON WAYNE on 09/12/20 1207 Diltiazem HCl (Diltiazem HCl) 30 Mg Tablet, 30 MG PO DAILY, (Reported) Entered as Reported by: HARRISON WAYNE on 09/12/20 1155 Docusate Sodium (Docusate Sodium) 100 Mg Capsule, 100 MG PO DAILY, (Reported) Entered as Reported by: SELIN PINZON on 07/31/15 1312 Docusate Sodium (Docusate Sodium) 100 Mg Capsule, 200 MG PO HS, (Reported) Entered as Reported by: HARRISON WAYNE on 09/12/20 1202 Ferrous Sulfate (Iron) 325 Mg Tablet, 325 MG PO DAILY, (Reported) Entered as Reported by: HARRISON WAYNE on 09/12/20 1204 Fluticasone Propionate (Flonase Allergy Relief) 9.9 Ml [place].susp, 1 SPRAY NS BID, (Reported) Entered as Reported by: VALENTIN ANTHONY on 09/14/20 1405 Gabapentin (Neurontin) 300 Mg Capsule, 300 MG PO HS, (Reported) Entered as Reported by: HARRISON WAYNE on 09/12/20 1156 Isosorbide Mononitrate (Isosorbide Mononitrate ER) 30 Mg Tab.er.24h, 30 MG PO DAILY, (Reported) Entered as Reported by: IRAJ HOUSE on 05/10/19 2254 Isosorbide Mononitrate (Isosorbide Mononitrate ER) 60 Mg Tab, 60 MG PO HS, (Reported) Entered as Reported by: HARRISON WAYNE on 09/12/20 1149 Lactobacillus Acidophilus (Acidophilus) 1 Each Capsule, 1 EACH PO TID Prescribed by: EZIO TOWNSEND on 09/15/20 0945 Levofloxacin (Levofloxacin) 750 Mg Tablet, 750 MG PO Q48H Prescribed by: EZIO TOWNSEND on 09/15/20 0945 Levofloxacin (Levofloxacin) 750 Mg Tablet, 750 MG PO DAILY Prescribed by: ELIZABETH ENGLAND on 03/16/21 191 Levothyroxine Sodium (Levothyroxine Sodium) 50 Mcg Tablet, 50 MCG PO DAILY, (Reported) Entered as Reported by: SELIN PINZON on 07/31/15 1312 Lisinopril (Lisinopril) 5 Mg Tablet, 2.5 MG PO DAILY, (Reported) Entered as Reported by: IRAJ HOUSE on 05/10/192253 Loratadine (Claritin) 10 Mg Tablet, 10 MG PO DAILY, (Reported) Entered as Reported by: HARRISON WAYNE on 09/12/20 1206 Melatonin/Pyridoxine HCl (B6) (Melatonin 10 mg Tablet) 1 Each Tab.mphase, 1 EACH PO HS, (Reported) Entered as Reported by: HARRISON WAYNE on 09/12/20 1217 Multivitamin (Multi-Vitamin Daily) 1 Each Tablet, 1 TAB PO DAILY, (Reported) Entered as Reported by: DENITA FUNES on 07/02/15 1638 Omeprazole (Omeprazole) 40 Mg Capsule.dr, 40 MG PO DAILY, (Reported) Entered as Reported by: IRAJ HOUSE on 05/10/19 225 Ondansetron (Ondansetron Odt) 4 Mg Tab.rapdis, 4 MG PO Q6H PRN for NAUSEA/VOMITING, (Reported) Entered as Reported by: IRAJ HOUSE on 05/10/19 225 Pramipexole Di-HCl (Mirapex) 1 Mg Tablet, 1 MG PO DAILY, (Reported) Entered as Reported by: HARRISON WAYNE on 09/12/20 115 Pramipexole Di-HCl (Mirapex) 1 Mg Tablet, 2 MG PO HS, (Reported) Entered as Reported by: HARRISON WAYNE on 09/12/20 1152 Quetiapine Fumarate (Quetiapine Fumarate) 100 Mg Tablet, 100 MG PO HS, (Reported) Entered as Reported by: HARRISON WAYNE on 09/12/20 1158 Quetiapine Fumarate (Quetiapine Fumarate) 50 Mg Tablet, 50 MG PO DAILY, (Reported) Entered as Reported by: HARRISON WAYNE on 09/12/20 1159 Quetiapine Fumarate (Quetiapine Fumarate) 50 Mg Tablet, 50 MG PO 1400, (Reported) Entered as Reported by: HARRISON WAYNE on 09/12/20 1200 Quetiapine Fumarate (Quetiapine Fumarate) 25 Mg Tablet, 25 MG PO 1400, (Reported) Entered as Reported by: VALENTIN ANTHONY on 09/14/20 1405 Tramadol HCl (Ultram) 50 Mg Tablet, 50 MG PO Q6H PRN for PAIN-MODERATE (5-7), (Reported) Entered as Reported by: IRAJ HOUSE on 05/10/19 2254 Tramadol HCl (Tramadol HCl) 50 Mg Tablet, 50 MG PO HS, (Reported) Entered as Reported by: HARRISON WAYNE on 09/12/20 1208 Vitamin B Complex (Vitamin B Complex) 1 Each Tablet, 1 EACH PO 1400, (Reported) Entered as Reported by: VALENTIN ANTHONY on 09/14/20 1405 [[place]/Zinc/Turmeric] , 1 CAP PO BID, (Reported) Entered as Reported by: DEXTER LARKIN on 05/13/19 1105 [mag/calcium/zinc] , 1 TAB BID, (Reported) Entered as Reported by: HARRISON WAYNE on 09/12/20 1217 Review of Systems Review of Systems Constitutional: no symptoms reported EENTM: No Symptoms Reported Respiratory: See HPI Cardiovascular: No Symptoms Reported Gastrointestinal: See HPI Genitourinary: See HPI Musculoskeletal: no symptoms reported Skin: no symptoms reported Psychiatric/Neurological: See HPI Endocrine: No Symptoms Reported Hematologic/Lymphatic: No Symptoms Reported (YAW SPAULDING MD) Past Zpidwlh-Fvtwvl-Aeoyeb Hx Patient Social History Tobacco Use?: No Use of E-Cig and/or Vaping dev: No Substance use?: No Pt feels they are or have been: No (YAW SPAULDING MD) Immunizations Up To Date Tetanus Booster (TDap): Unknown First/Initial COVID19 Vaccinat: APR Second COVID19 Vaccination Bc: MAY COVID19 Vaccine Light Fixture Servicer: Avectra (YAW SPAULDING MD) Seasonal Allergies Seasonal Allergies: Yes (YAW SPAULDING MD) Past Medical History Surgeries: Yes (LEFT WRIST, LEFT KNEE SCOPE, TOTAL LEFT KNEE, HEMORRHOIDS,TURP, urostomy ) Abdominal, Bladder Surgery, CABG, Coronary Stent, Joint Replacement, Nephrectomy, Prostatectomy, Urinary Diversion Respiratory: No Currently Using CPAP: No Currently Using BIPAP: No Cardiac: Yes (STENTS X5) Coronary Artery Disease, Heart Attack, High Cholesterol Neurological: Yes Dementia Reproductive Disorders: No Sexually Transmitted Disease: No HIV/AIDS: No Genitourinary: Yes (urostomy) Prostate Problems Gastrointestinal: Yes Obstructive Bowel Musculoskeletal: Yes Arthritis Endocrine: Yes Hypothyroidsim HEENT: Yes Hearing Impairment: Denies, Hearing Aide Right, Hearing Aide Left Cancer: Yes (NOSE) Bladder, Prostate, Kidney Did You Recieve Any Treatments: Yes What Type of Treatment Did You: Surgical Intervention Psychosocial: No Integumentary: No Blood Disorders: No Adverse Reaction/Blood Tranf: No (YAW SPAULDING MD) Family Medical History Arthritis 19 FATHER 19 MOTHER Diabetes mellitus 19 FATHER Myocardial infarction 19 FATHER 19 MOTHER Respiratory disorder G8 SISTER No Family History of: AIDS [place]'s disease Alcoholism Alzheimer's disease Cancer of mouth Colon cancer Completed stroke Dementia Kidney disease Parkinson's disease Prostate cancer Psychosocial problem Seizure disorder Severe allergy Thyroid disease Tuberculosis No Pertinent Family Hx ADDITIONAL PAST SURGICAL HISTORY: -SURGERIES FOR CANCER--PROSTATE, BLADDER, URETERAL, AND RENAL WITH LEFT NEPHRECTOMY AND PERMANENT UROSTOMY -3 VESSEL CABG -CARDIAC CATHS WITH STENTS X 7-8 (YAW SPAULDING MD) Physical Exam Vital Signs Vital Signs - First Documented 03/16/21 17:25 Temp 35.9 Pulse 94 Resp 18 B/P (MAP) 168/69 (102) Pulse Ox 94 O2 Delivery Room Air (ELIZABETH ENGLAND MD) Vital Signs Capillary Refill : Less Than 3 Seconds (YAW SPAULDING MD) Height/Weight/BMI Height: 5'7.00" Weight: 195lbs. 0oz. 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 as tested, no motor/sensory deficits, alert, normal mood/affect, oriented x 3 Skin: normal color, warm/dry (YAW SPAULDING MD) Procedures/Interventions Suture Size: 4-0 (YAW SPAULDING MD) Progress/Results/Core Measures Results/Orders Lab Results Laboratory Tests Test 03/16/21 18:10 03/16/21 18:36 Range/Units White Blood Count 7.6 4.3-11.0 10^3/uL Red Blood Count 4.84 4.30-5.52 10^6/uL Hemoglobin 14.7 13.3-17.7 g/dL Hematocrit 46 40-54 % Mean Corpuscular Volume 96 80-99 fL Mean Corpuscular Hemoglobin 30 25-34 pg Mean Corpuscular Hemoglobin Concent 32 32-36 g/dL Red Cell Distribution Width 15.2 H 10.0-14.5 % Platelet Count 208 130-400 10^3/uL Mean Platelet Volume 9.7 9.0-12.2 fL Immature Granulocyte % (Auto) 0 % Neutrophils (%) (Auto) 88 H 42-75 % Lymphocytes (%) (Auto) 4 L 12-44 % Monocytes (%) (Auto) 4 0-12 % Eosinophils (%) (Auto) 3 0-10 % Basophils (%) (Auto) 0 0-10 % Neutrophils # (Auto) 6.7 1.8-7.8 10^3/uL Lymphocytes # (Auto) 0.3 L 1.0-4.0 10^3/uL Monocytes # (Auto) 0.3 0.0-1.0 10^3/uL Eosinophils # (Auto) 0.2 0.0-0.3 10^3/uL Basophils # (Auto) 0.0 0.0-0.1 10^3/uL Immature Granulocyte # (Auto) 0.0 0.0-0.1 10^3/uL Neutrophils % (Manual) 94 % Lymphocytes % (Manual) 2 % Monocytes % (Manual) 2 % Eosinophils % (Manual) 2 % Blood Morphology Comment NORMAL Sodium Level 143 135-145 MMOL/L Potassium Level 5.0 3.6-5.0 MMOL/L Chloride Level 106 98-107 MMOL/L Carbon Dioxide Level 20 L 21-32 MMOL/L Anion Gap 17 H 5-14 MMOL/L Blood Urea Nitrogen 30 H 7-18 MG/DL Creatinine 2.37 H 0.60-1.30 MG/DL Estimat Glomerular Filtration Rate 26 BUN/Creatinine Ratio 13 Glucose Level 149 H 70-105 MG/DL Calcium Level 9.6 8.5-10.1 MG/DL Corrected Calcium 9.2 8.5-10.1 MG/DL Magnesium Level 2.2 1.6-2.4 MG/DL Total Bilirubin 0.5 0.1-1.0 MG/DL Aspartate Amino Transf (AST/SGOT) 32 5-34 U/L Alanine Aminotransferase (ALT/SGPT) 30 0-55 U/L Alkaline Phosphatase 79 40-136 U/L Total Protein 8.4 H 6.4-8.2 GM/DL Albumin 4.5 3.2-4.5 GM/DL Urine Color ORANGE Urine Clarity CLOUDY Urine pH 7.0 5-9 Urine Specific [place] 1.020 1.016-1.022 Urine Protein 2+ H NEGATIVE Urine Glucose (UA) NEGATIVE NEGATIVE Urine Ketones NEGATIVE NEGATIVE Urine Nitrite NEGATIVE NEGATIVE Urine Bilirubin NEGATIVE NEGATIVE Urine Urobilinogen 0.2 < = 1.0 MG/DL Urine Leukocyte Esterase 1+ H NEGATIVE Urine RBC (Auto) 3+ H NEGATIVE Urine RBC 5-10 H /HPF Urine WBC 25-50 H /HPF Urine Squamous Epithelial Cells NONE /HPF Urine Renal Epithelial Cells NONE /HPF Urine Crystals NONE /LPF Urine Bacteria LARGE H /HPF Urine Casts NONE /LPF Urine Mucus NEGATIVE /LPF Urine Culture Indicated YES (ELIZABETH ENGLAND MD) My Orders Orders - ELIZABETH ENGLAND MD Levofloxacin Tablet (Levaquin Tablet) (03/16/21 19:15) Rx-Ondansetron Po (Rx-Zofran Po) (03/16/21 19:11) (ELIZABETH ENGLAND MD) Medications Given in ED Current Medications Medications Dose Ordered Sig/Fahad Route Start Time Stop Time Status Last Admin Dose Admin Albuterol/ Ipratropium 3 ml ONCE ONCE INH 03/16/21 18:00 03/16/21 18:01 DC 03/16/21 18:08 3 ML Ondansetron HCl 8 mg ONCE ONCE IVP 03/16/21 18:00 03/16/21 18:01 DC 03/16/21 18:13 8 MG (ELIZABETH ENGLAND MD) Vital Signs/I&O 03/16/21 03/16/21 17:25 18:09 Temp 35.9 Pulse 94 Resp 18 B/P (MAP) 168/69 (102) Pulse Ox 94 O2 Delivery Room Air Room Air (ELIZABETH ENGLAND MD) Blood Pressure Mean: 102 Progress Progress Note : Time: 18:07 Progress Note Patient was seen and examined. Basic labs and urinalysis are being run. Zofran was given for nausea and vomiting. DuoNeb treatment was ordered for treatment of his wheezing. Care is being transitioned to Dr. England at this time. (YAW SPAULDING MD) Progress Note : Time: 19:12 Progress Note Care assumed from Dr. Graham at shift change with labs pending. He does have a bit of a left shift on his CBC. Renal function appears at its baseline. He was treated with some IV Zofran here and is now sipping on some water. No vomiting since he has been here. On my assessment he is standing up at the bedside eager to go home. His is comfortable with discharge. I discussed findings in his urine concerning for early urinary tract infection. I was able to look back at his last urine culture from August of this year which showed that he had Pseudomonas that was sensitive to Levaquin. He was treated with 750 of Levaquin for 5 days and his states that he tolerated it well. We will give him one 750mg p.o. tab here and a take-home pack of Zofran. She is comfortable with this plan of care. She will follow up with Dr. Townsend tomorrow clinically he looks well. All questions are sought and answered. (ELIZABETH ENGLAND MD) Departure Impression Primary Impression: Urinary tract infection Qualified Codes: N30.01 - Acute cystitis with hematuria Disposition: HOME, SELF-CARE Condition: Stable Departure-Patient Inst. Decision time for Depature: 19:14 (ELIZABETH ENGLAND MD) Referrals: EZIO TOWNSEND MD (PCP/Family) Primary Care Physician Patient Instructions: Urinary Tract Infections in Adults Add. Discharge Instructions: I have given you a prescription for some Levaquin, 750 mg once a day for the next 4 days starting tomorrow evening. He has been given a dose here. Zofran 1 every 8 hours as needed. Push oral fluids to keep him well-hydrated. If he gets a fever, continues to vomit, has worsening confusion or any other emergent concerns please come back to the emergency room for reevaluation. Scripts Levofloxacin (Levofloxacin) 750 Mg Tablet 750 MG PO DAILY for 4 Days, #4 TAB Prov: ELIZABETH ENGLAND MD 03/16/21 Copy Copies To 1: EZIO TOWNSEND MD, JOSHUA T MD Mar 16, 2021 18:06 ELIZABETH ENGLADN MD Mar 16, 2021 19:17
[2021-03-16 18:20] LABS: BASOPHILS % (AUTO) 0 % (0-10); EOSINOPHILS # (AUTO) 0.2 10^3/uL (0.0-0.3); EOSINOPHILS % (AUTO) 3 % (0-10); HEMATOCRIT 46 % (40-54); HEMOGLOBIN 14.7 g/dL (13.3-17.7); LYMPHOCYTES # (AUTO) 0.3 10^3/uL (1.0-4.0); LYMPHOCYTES % (AUTO) 4 % (12-44); MEAN CORPUSCULAR HEMOGLOBIN 30 pg (25-34); MEAN CORPUSCULAR HGB CONC 32 g/dL (32-36); MEAN CORPUSCULAR VOLUME 96 fL (80-99); MEAN PLATELET VOLUME 9.7 fL (9.0-12.2); MONOCYTES # (AUTO) 0.3 10^3/uL (0.0-1.0); MONOCYTES % (AUTO) 4 % (0-12); NEUTROPHILS # (AUTO) 6.7 10^3/uL (1.8-7.8); NEUTROPHILS % (AUTO) 88 % (42-75); PLATELET COUNT 208 10^3/uL (130-400); WHITE BLOOD COUNT 7.6 10^3/uL (4.3-11.0)
[2021-03-16 18:28] LABS: ALBUMIN 4.5 GM/DL (3.2-4.5)
[2021-03-16 18:30] LABS: CALCIUM 9.6 MG/DL (8.5-10.1)
[2021-03-16 18:31] LABS: TOTAL PROTEIN 8.4 GM/DL (6.4-8.2)
[2021-03-16 18:33] LABS: BILIRUBIN,TOTAL 0.5 MG/DL (0.1-1.0)
[2021-03-16 18:35] LABS: CREATININE SERUM 2.37 MG/DL (0.60-1.30)
[2021-03-16 18:36] LABS: EOSINOPHILS % (MANUAL) 2 %; LYMPHOCYTES % (MANUAL) 2 %; MONOCYTES % (MANUAL) 2 %; NEUTROPHILS % (MANUAL) 94 %; RBC MORPH NORMAL
[2021-03-16 18:37] LABS: MAGNESIUM 2.2 MG/DL (1.6-2.4)
[2021-03-16 18:41] LABS: BILIRUBIN,URINE NEGATIVE (NEGATIVE); CLARITY,URINE CLOUDY; COLOR,URINE ORANGE; GLUCOSE, URINE (UA) NEGATIVE (NEGATIVE); KETONES,URINE NEGATIVE (NEGATIVE); LEUKOCYTE ESTERASE ,URINE 1+ (NEGATIVE); NITRITE,URINE NEGATIVE (NEGATIVE); PROTEIN,URINE 2+ (NEGATIVE)
[2021-03-16 19:03] LABS: BACTERIA,URINE LARGE /HPF; WBC,URINE 25-50 /HPF
[2021-03-16] MEDS ORDERED: RX-ONDANSETRON 4 MG ODT (ZOFRAN) PPK #4 PO STA (19:11)
[2021-03-16] MEDS ORDERED: LEVO750T39 PO (19:16)
[2021-03-16 19:39] VITALS: BP 165/67
== END 2021-03-16 19:39 | disposition home or self-care (01) ==
LOC: EDUNIT# 17:13 → ER 17:14
DX: N39.0 Urinary tract infection, site not specified (principal); I25.2 Old myocardial infarction; F03.90 Unspecified dementia, unspecified severity, without behavioral disturbance, psychotic disturbance, mood disturbance, and anxiety; E78.00 Pure hypercholesterolemia, unspecified; I25.10 Atherosclerotic heart disease of native coronary artery without angina pectoris; E03.9 Hypothyroidism, unspecified; Z79.82 Long term (current) use of aspirin; Z79.890 Hormone replacement therapy; Z79.899 Other long term (current) drug therapy
CPT/HCPCS: 36415; 80053; 81000; 83735; 85007; 85027; 87077; 87088; 87186; 94640

== ENCOUNTER 2021-07-21 10:05 | Outpatient (RCR) | payer MEDICARE | END 2021-07-24 | disposition home or self-care (01) | PROVIDERS: ATTEND Physician Assistant | DX: M54.50 Low back pain, unspecified (principal) ==

== ENCOUNTER 2021-08-18 12:39 | Outpatient (RCR) | payer MEDICARE ==
[~2021-08-18 12:39] MED LIST changes: -DEXT1TAB3 PO; +DEXT1TAB5 PO
== END 2021-08-24 | disposition home or self-care (01) ==
PROVIDERS: ATTEND Physician Assistant
DX: M54.50 Low back pain, unspecified (principal); G89.29 Other chronic pain

== ENCOUNTER → 2021-10-18 | Outpatient (CLI) | payer MEDICARE ==
[~2021-10-18] MED LIST changes: -CRAN500T3 PO; +CRAN500T4 PO
[2021-10-18 15:55] LABS: HEMATOCRIT 35 % (40-54); HEMOGLOBIN 11.1 g/dL (13.3-17.7); MEAN CORPUSCULAR HEMOGLOBIN 31 pg (25-34); MEAN CORPUSCULAR HGB CONC 32 g/dL (32-36); MEAN CORPUSCULAR VOLUME 97 fL (80-99); MEAN PLATELET VOLUME 9.2 fL (9.0-12.2); PLATELET COUNT 181 10^3/uL (130-400); WHITE BLOOD COUNT 4.8 10^3/uL (4.3-11.0)
[2021-10-18 16:09] LABS: ALBUMIN 4.2 GM/DL (3.2-4.5); POTASSIUM 4.9 MMOL/L (3.6-5.0)
[2021-10-18 16:10] LABS: CALCIUM 9.4 MG/DL (8.5-10.1)
[2021-10-18 16:12] LABS: TOTAL PROTEIN 7.4 GM/DL (6.4-8.2)
[2021-10-18 16:13] LABS: BILIRUBIN,TOTAL 0.5 MG/DL (0.1-1.0)
[2021-10-18 16:15] LABS: CREATININE SERUM 2.01 MG/DL (0.60-1.30)
--- NOTE | 2021-10-18 16:43 | Diagnostic Imaging Report ---
EXAMINATION: CT chest, abdomen and pelvis without intravenous contrast. TECHNIQUE: Multiple contiguous axial images were obtained through the chest, abdomen and pelvis without intravenous contrast. All CT scans use one or more of the following dose optimizing techniques: automated exposure control, MA and/or KvP adjustment based on patient size and exam type or iterative reconstruction. HISTORY: Right-sided chest and abdominal pain after fall. COMPARISON: 10/07/2020 FINDINGS: Thyroid: The thyroid is normal. Mediastinum: Heart size is normal without significant pericardial effusion. Calcifications of the aorta and coronary vessels. Thoracic aorta is normal in caliber. No suspicious lymphadenopathy. There are calcified mediastinal lymph nodes. Lungs and airways: The lungs are clear without consolidation, pleural effusion, or pneumothorax. There are calcified granulomas within the lungs. Atelectasis within the lung bases. The airways are normal. Solid organs: Subcentimeter left hepatic hypoattenuating lesion likely a hepatic cyst. Multiple calcified granulomas are present within the liver. The gallbladder is normal. There is no biliary ductal dilation. Pancreas is normal. There are numerous calcified granulomas within the spleen. Adrenal glands are normal. Left kidney is nonvisualized and may be surgically absent. Right kidney is unremarkable without visualized calculus or hydronephrosis. Bowel: The stomach and small bowel are normal without obstruction. Surgical changes from partial colon resection. Scattered colonic diverticulosis. There is a right lower quadrant ostomy. Peritoneum: There is no intraperitoneal free fluid or free air. No suspicious lymphadenopathy. Vasculature: Calcification of the aorta without aneurysm. Musculoskeletal: Degenerative changes of the spine without suspicious osseous lesion or compression fracture. Pelvis: The prostate gland is surgically absent. The urinary bladder is surgically absent. IMPRESSION: 1. There is no acute abnormality in the chest, abdomen, or pelvis. Dictated by: Dictated on workstation # [id number]
== END ==
LOC: RAD 15:28
PROVIDERS: ATTEND Nurse Practitioner Family
DX: R10.9 Unspecified abdominal pain (principal)
CPT/HCPCS: 36415; 71250; 74176; 80053; 85027

== ENCOUNTER → 2021-11-22 | Outpatient (CLI) | payer MEDICARE ==
--- NOTE | 2021-11-22 16:22 | Diagnostic Imaging Report ---
INDICATION: Fall. Pelvic pain. FINDINGS: AP pelvis. The SI joints are symmetrical. No pelvic fractures. Pubic symphysis shows good alignment. Femoral heads are in normal articulation. Articulating surfaces are smooth. No fractures of the hips are seen. No evidence of osteonecrosis. IMPRESSION: No acute abnormalities noted of the pelvis or hips. Dictated by: Dictated on workstation # [id number]
== END ==
LOC: RAD 10:25
PROVIDERS: ATTEND Family Medicine
DX: R10.2 Pelvic and perineal pain (principal)
CPT/HCPCS: 72170

== ENCOUNTER 2021-11-23 13:40 | Outpatient (RCR) | payer MEDICARE ==
[~2021-11-23 13:40] MED LIST changes: +LEVO750T PO; -LEVO750T39 PO
== END 2021-11-24 | disposition home or self-care (01) ==
PROVIDERS: ATTEND Nurse Practitioner Family
DX: R26.81 Unsteadiness on feet (principal); R53.1 Weakness; E11.9 Type 2 diabetes mellitus without complications

== ENCOUNTER 2022-01-04 12:07 | Inpatient (IN) | payer MEDICARE ==
[~2022-01-04] VITALS: Ht 172.7 cm; Wt 95.0 kg
[2022-01-04 12:31] LABS: BASOPHILS % (AUTO) 0 % (0-10); EOSINOPHILS # (AUTO) 0.2 10^3/uL (0.0-0.3); EOSINOPHILS % (AUTO) 3 % (0-10); HEMATOCRIT 37 % (40-54); HEMOGLOBIN 11.7 g/dL (13.3-17.7); LYMPHOCYTES # (AUTO) 0.8 10^3/uL (1.0-4.0); LYMPHOCYTES % (AUTO) 11 % (12-44); MEAN CORPUSCULAR HEMOGLOBIN 31 pg (25-34); MEAN CORPUSCULAR HGB CONC 32 g/dL (32-36); MEAN CORPUSCULAR VOLUME 97 fL (80-99); MEAN PLATELET VOLUME 8.9 fL (9.0-12.2); MONOCYTES # (AUTO) 0.5 10^3/uL (0.0-1.0); MONOCYTES % (AUTO) 7 % (0-12); NEUTROPHILS # (AUTO) 5.5 10^3/uL (1.8-7.8); NEUTROPHILS % (AUTO) 78 % (42-75); PLATELET COUNT 219 10^3/uL (130-400)
[2022-01-04 12:40] LABS: ALBUMIN 4.1 GM/DL (3.2-4.5); POTASSIUM 4.8 MMOL/L (3.6-5.0)
[2022-01-04 12:41] LABS: CALCIUM 9.1 MG/DL (8.5-10.1)
[2022-01-04 12:42] LABS: TOTAL PROTEIN 7.5 GM/DL (6.4-8.2)
[2022-01-04 12:44] LABS: BILIRUBIN,TOTAL 0.3 MG/DL (0.1-1.0)
[2022-01-04 12:46] LABS: CREATININE SERUM 2.17 MG/DL (0.60-1.30)
[2022-01-04 13:02] LABS: BILIRUBIN,URINE NEGATIVE (NEGATIVE); CLARITY,URINE CLEAR; COLOR,URINE YELLOW; GLUCOSE, URINE (UA) NEGATIVE (NEGATIVE); KETONES,URINE NEGATIVE (NEGATIVE); LEUKOCYTE ESTERASE ,URINE 1+ (NEGATIVE); NITRITE,URINE POSITIVE (NEGATIVE); PROTEIN,URINE TRACE (NEGATIVE)
[2022-01-04 13:27] LABS: AMPHETAMINE SCREEN, URINE NEGATIVE (NEGATIVE); BARBITURATE SCREEN URINE NEGATIVE (NEGATIVE); BENZODIAZEPINES SCREEN URINE NEGATIVE (NEGATIVE); CANNABINOID SCREEN, URINE NEGATIVE (NEGATIVE); COCAINE SCREEN URINE NEGATIVE (NEGATIVE); METHADONE STAT NEGATIVE (NEGATIVE); OPIATE SCREEN URINE NEGATIVE (NEGATIVE); OXYCODONE STAT NEGATIVE (NEGATIVE); PROPOXYPHENE STAT NEGATIVE (NEGATIVE); TRICYCLIC ANTIDEPRESSANTS SCRE POSITIVE (NEGATIVE)
[2022-01-04 13:30] LABS: BACTERIA,URINE LARGE /HPF; RBC,URINE 0-2 /HPF; WBC,URINE 50-100 /HPF
--- NOTE | 2022-01-04 14:11 | ED General ---
General Chief Complaint: Altered Mental Status Stated Complaint: HEAD PAIN/WANDERING OFF Nursing Triage Note: PT PRESENTS TO ED VIA POV ACCOMPANIED BY WITH COMPLAINTS OF REESE, INCREASED CONFUSION. PT STATES HE IS NOT SLEEPING AT NIGHT. PT HAS DEMENTIA AND FEELS LIKE IT IS GETTING WORSE. PT REPORTS TODAY HE WONDERED FROM THE HOUSE AND WAS TAKEN TO [facility] BY A JESSICA MARES WHO SAW HIM STRUGGLING TO WALK WITH HIS CANE. Source of Information: Patient Exam Limitations: No Limitations History of Present Illness Date Seen by Provider: Jan 04, 2022 Time Seen by Provider: 13:39 Initial Comments This is a 86 yo male with history of vascular dementia who presented to the ER via POV with spouse for concerns of increased confusion and insomnia. Spouse states he has not been sleeping for the past 2 nights. Today he went outside to his garage to "astrid" which is his norm and had wandered off. Spouse states when she checked on him "he was no where to be found". He was found by stranger and taken into [facility] custody. Spouse had just make police report when she was notified he had been found. He was complaining of headache at [facility], but does not have REESE now. States he just said that "to get out of there". Spouse is sole caregiver and voice significant caregiver fatigue due to altered behavior over past couple days. No known fever, no nausea, vomiting, diarrhea, abdominal pain. 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 Allergies and Home Medications Allergies Coded Allergies: NKANo Known Allergies (Verified Allergy, Mild, 11/24/11) Uncoded Allergies: BEE STINGS (Allergy, Severe, SOA/HIVES, 11/01/10) Patient Home Medication List Home Medication List Reviewed: Yes Acetaminophen (Tylenol) 325 Mg Capsule, 650 MG PO BID, (Reported) Entered as Reported by: IRAJ HOUSE on 05/10/19 2254 Albuterol Sulfate (Ventolin Hfa) 1 Puff Puff, 2 PUFF INH BID, (Reported) Entered as Reported by: HARRISON WAYNE on 09/12/20 1528 Aspirin (Aspirin EC) 81 Mg Tablet.dr, 81 MG PO TUES,SAT, (Reported) Entered as Reported by: VALENTIN ANTHONY on 09/14/20 1405 Atorvastatin Calcium (Atorvastatin Calcium) 40 Mg Tablet, 40 MG PO HS, (Reported) Entered as Reported by: HARRISON WAYNE on 09/12/20 1153 Atorvastatin Calcium (Lipitor) 80 Mg Tablet, 80 MG PO HS Prescribed by: HERMINIO GOODMAN on 01/04/222043 Last Action: Continued Cranberry Extract (Cranberry) 500 Mg Tablet, 500 MG PO BID, (Reported) Entered as Reported by: HARRISON WAYNE on 09/12/20 1213 Cranberry Extract (Cranberry) 500 Mg Tablet, 500 MG PO DAILY Prescribed by: HERMINIO GOODMAN on 01/04/222043 Last Action: Converted Dextromethorphan HBr/Chlor-Mal (Coricidin Hbp Cough & Cold Tab) 1 Each Tablet, 1 EACH PO HS, (Reported) Entered as Reported by: HARRISON WAYNE on 09/12/20 1207 Diltiazem HCl (Diltiazem HCl) 30 Mg Tablet, 30 MG PO DAILY, (Reported) Entered as Reported by: HARRISON WAYNE on 09/12/20 1155 Docusate Sodium (Docusate Sodium) 100 Mg Capsule, 100 MG PO DAILY, (Reported) Entered as Reported by: SELIN PINZON on 07/31/15 1312 Docusate Sodium (Docusate Sodium) 100 Mg Capsule, 200 MG PO HS, (Reported) Entered as Reported by: HARRISON WAYNE on 09/12/20 1202 Ferrous Sulfate (Iron) 325 Mg Tablet, 325 MG PO DAILY, (Reported) Entered as Reported by: HARRISON WAYNE on 09/12/20 1204 Fluticasone Propionate (Flonase Allergy Relief) 9.9 Ml [place].susp, 1 SPRAY NS BID, (Reported) Entered as Reported by: VALENTIN ANTHONY on 09/14/20 1405 Gabapentin (Neurontin) 300 Mg Capsule, 300 MG PO HS, (Reported) Entered as Reported by: HARRISON WAYNE on 09/12/20 1156 Isosorbide Mononitrate (Isosorbide Mononitrate ER) 30 Mg Tab.er.24h, 30 MG PO DAILY, (Reported) Entered as Reported by: IRAJ HOUSE on 05/10/19 2254 Isosorbide Mononitrate (Isosorbide Mononitrate ER) 60 Mg Tab, 60 MG PO HS, (Reported) Entered as Reported by: HARRISON WAYNE on 09/12/20 1149 Last Action: Continued Lactobacillus Acidophilus (Acidophilus) 1 Each Capsule, 1 EACH PO TID Prescribed by: EZIO ROSSI on 09/15/20 0945 Levothyroxine Sodium (Levothyroxine Sodium) 50 Mcg Tablet, 50 MCG PO DAILY, (Reported) Entered as Reported by: SELIN PINZON on 07/31/15 1312 Lisinopril (Lisinopril) 5 Mg Tablet, 2.5 MG PO DAILY, (Reported) Entered as Reported by: IRAJ HOUSE on 05/10/19 225 Loratadine (Claritin) 10 Mg Tablet, 10 MG PO DAILY, (Reported) Entered as Reported by: HARRISON WAYNE on 09/12/20 1206 Melatonin (Melatonin) 10 Mg Tablet, 10 MG PO DAILY Prescribed by: HERMINIO GOODMAN on 01/04/222043 Last Action: Continued Melatonin/Pyridoxine HCl (B6) (Melatonin 10 mg Tablet) 1 Each Tab.mphase, 1 EACH PO HS, (Reported) Entered as Reported by: HARRISON WAYNE on 09/12/20 1217 Multivitamin (Multi-Vitamin Daily) 1 Each Tablet, 1 TAB PO DAILY, (Reported) Entered as Reported by: DENITA FUNES on 07/02/15 1638 Omeprazole (Omeprazole) 40 Mg Capsule.dr, 40 MG PO DAILY, (Reported) Entered as Reported by: IRAJ HOUSE on 05/10/192253 Ondansetron (Ondansetron Odt) 4 Mg Tab.rapdis, 4 MG PO Q6H PRN for NAUSEA/VOMITING, (Reported) Entered as Reported by: IRAJ HOUSE on 05/10/192253 Pramipexole Di-HCl (Mirapex) 1 Mg Tablet, 1 MG PO DAILY, (Reported) Entered as Reported by: HARRISON WAYNE on 09/12/20 1152 Pramipexole Di-HCl (Mirapex) 1 Mg Tablet, 1.5 MG PO HS Prescribed by: HERMINIO GOODMAN on 01/04/222043 Last Action: Converted Quetiapine Fumarate (Quetiapine Fumarate) 100 Mg Tablet, 200 MG PO HS Prescribed by: HERMINIO GOODMAN on 01/04/222043 Last Action: Continued Tramadol HCl (Ultram) 50 Mg Tablet, 50 MG PO Q6H PRN for PAIN-MODERATE (5-7), (Reported) Entered as Reported by: IRAJ HOUSE on 05/10/19 2254 Tramadol HCl (Tramadol HCl) 50 Mg Tablet, 50 MG PO HS, (Reported) Entered as Reported by: HARRISON WAYNE on 09/12/20 1208 Vitamin B Complex (Vitamin B Complex) 1 Each Tablet, 1 EACH PO 1400, (Reported) Entered as Reported by: VALENTIN ANTHONY on 09/14/20 1405 [[place]/Zinc/Turmeric] , 1 CAP PO BID, (Reported) Entered as Reported by: DEXTER LARKIN on 05/13/19 1105 [mag/calcium/zinc] , 1 TAB BID, (Reported) Entered as Reported by: HARRISON WAYNE on 09/12/20 1217 Discontinued Medications Levofloxacin (Levofloxacin) 750 Mg Tablet, 750 MG PO Q48H Prescribed by: EZIO ROSSI on 09/15/20 0945 Last Action: Discontinued Levofloxacin (Levofloxacin) 750 Mg Tablet, 750 MG PO DAILY Prescribed by: ELIZABETH ENGLAND on 03/16/21 1916 Last Action: Discontinued Quetiapine Fumarate (Quetiapine Fumarate) 50 Mg Tablet, 50 MG PO DAILY, (Reported) Entered as Reported by: HARRISON WAYNE on 09/12/20 1159 Last Action: Discontinued Quetiapine Fumarate (Quetiapine Fumarate) 50 Mg Tablet, 50 MG PO 1400, (Reported) Entered as Reported by: HARRISON WAYNE on 09/12/20 1200 Last Action: Discontinued Quetiapine Fumarate (Quetiapine Fumarate) 25 Mg Tablet, 25 MG PO 1400, (Reported) Entered as Reported by: VALENTIN ANTHONY on 09/14/20 1405 Last Action: Discontinued Review of Systems Review of Systems Constitutional: see HPI Past Tmpbsbv-Ceypba-Srvxzb Hx Patient Social History Tobacco Use?: No Substance use?: No Alcohol Use?: Yes Alcohol Frequency: Rarely Pt feels they are or have been: No Immunizations Up To Date Tetanus Booster (TDap): Unknown First/Initial COVID19 Vaccinat: APR Second COVID19 Vaccination Bc: May COVID19 Vaccination Date: FEB Seasonal Allergies Seasonal Allergies: Yes Past Medical History Surgery/Hospitalization HX: PMH: COPD, DM, HTN, UROSTOMY BAG Surgeries: Yes (LEFT WRIST, LEFT KNEE SCOPE, TOTAL LEFT KNEE, HEMORRHOIDS,TURP, urostomy ) Abdominal, Bladder Surgery, CABG, Coronary Stent, Joint Replacement, Nephrectomy, Prostatectomy, Urinary Diversion Respiratory: No Currently Using CPAP: No Currently Using BIPAP: No Cardiac: Yes (STENTS X5) Coronary Artery Disease, Heart Attack, High Cholesterol Neurological: Yes Dementia Reproductive Disorders: No Sexually Transmitted Disease: No HIV/AIDS: No Genitourinary: Yes (urostomy) Prostate Problems Gastrointestinal: Yes Obstructive Bowel Musculoskeletal: Yes Arthritis Endocrine: Yes Hypothyroidsim HEENT: Yes Hearing Impairment: Denies, Hearing Aide Right, Hearing Aide Left Cancer: Yes (NOSE) Bladder, Prostate, Kidney Did You Recieve Any Treatments: Yes What Type of Treatment Did You: Surgical Intervention Psychosocial: No Integumentary: No Blood Disorders: No Adverse Reaction/Blood Tranf: No Family Medical History Arthritis 19 FATHER 19 MOTHER Diabetes mellitus 19 FATHER Myocardial infarction 19 FATHER 19 MOTHER Respiratory disorder G8 SISTER No Family History of: AIDS Trumbull's disease Alcoholism Alzheimer's disease Cancer of mouth Colon cancer Completed stroke Dementia Kidney disease Parkinson's disease Prostate cancer Psychosocial problem Seizure disorder Severe allergy Thyroid disease Tuberculosis No Pertinent Family Hx ADDITIONAL PAST SURGICAL HISTORY: -SURGERIES FOR CANCER--PROSTATE, BLADDER, URETERAL, AND RENAL WITH LEFT NEPHRECTOMY AND PERMANENT UROSTOMY -3 VESSEL CABG -CARDIAC CATHS WITH STENTS X 7-8 Physical Exam Vital Signs Vital Signs - First Documented 01/04/22 12:18 Temp 35.6 Pulse 93 Resp 18 B/P (MAP) 137/68 (91) Pulse Ox 95 Capillary Refill : Less Than 3 Seconds Height, Weight, BMI Height: 5'7.00" Weight: 195lbs. 0oz. 88.234922ly; 32.00 BMI Method:Stated General Appearance: No Apparent Distress, WD/WN Eyes: Bilateral Eye Normal Inspection, Bilateral Eye PERRL, Bilateral Eye EOMI HEENT: PERRL/EOMI, Normal ENT Inspection, Pharynx Normal Neck: Full Range of Motion, Normal Inspection Respiratory: Lungs Clear, Normal Breath Sounds, No Accessory Muscle Use, No Respiratory Distress Cardiovascular: Regular Rate, Rhythm, No Edema, No Gallop Gastrointestinal: Normal Bowel Sounds, No Organomegaly, Non Tender, Soft Extremity: Normal Capillary Refill, Normal Inspection, Normal Range of Motion Neurologic/Psychiatric: Alert; No Oriented x3 (person,place ); No Motor/Sensory Deficits, Normal Mood/Affect Skin: Normal Color, Warm/Dry Procedures/Interventions Suture Size: 4-0 Progress/Results/Core Measures Suspected Sepsis SIRS Temperature: Pulse: 93 Respiratory Rate: 18 Laboratory Tests 01/04/22 12:21: White Blood Count 7.0 Blood Pressure 137 /68 Mean: 91 Laboratory Tests 01/04/22 12:21: Creatinine 2.17H, Platelet Count 219, Total Bilirubin 0.3 Results/Orders Lab Results Laboratory Tests Test 01/04/22 12:21 01/04/22 12:57 Range/Units White Blood Count 7.0 4.3-11.0 10^3/uL Red Blood Count 3.81 L 4.30-5.52 10^6/uL Hemoglobin 11.7 L 13.3-17.7 g/dL Hematocrit 37 L 40-54 % Mean Corpuscular Volume 97 80-99 fL Mean Corpuscular Hemoglobin 31 25-34 pg Mean Corpuscular Hemoglobin Concent 32 32-36 g/dL Red Cell Distribution Width 15.2 H 10.0-14.5 % Platelet Count 219 130-400 10^3/uL Mean Platelet Volume 8.9 L 9.0-12.2 fL Immature Granulocyte % (Auto) 0 % Neutrophils (%) (Auto) 78 H 42-75 % Lymphocytes (%) (Auto) 11 L 12-44 % Monocytes (%) (Auto) 7 0-12 % Eosinophils (%) (Auto) 3 0-10 % Basophils (%) (Auto) 0 0-10 % Neutrophils # (Auto) 5.5 1.8-7.8 10^3/uL Lymphocytes # (Auto) 0.8 L 1.0-4.0 10^3/uL Monocytes # (Auto) 0.5 0.0-1.0 10^3/uL Eosinophils # (Auto) 0.2 0.0-0.3 10^3/uL Basophils # (Auto) 0.0 0.0-0.1 10^3/uL Immature Granulocyte # (Auto) 0.0 0.0-0.1 10^3/uL Sodium Level 138 135-145 MMOL/L Potassium Level 4.8 3.6-5.0 MMOL/L Chloride Level 108 H 98-107 MMOL/L Carbon Dioxide Level 20 L 21-32 MMOL/L Anion Gap 10 5-14 MMOL/L Blood Urea Nitrogen 30 H 7-18 MG/DL Creatinine 2.17 H 0.60-1.30 MG/DL Estimat Glomerular Filtration Rate 29 BUN/Creatinine Ratio 14 Glucose Level 116 H 70-105 MG/DL Calcium Level 9.1 8.5-10.1 MG/DL Corrected Calcium 9.0 8.5-10.1 MG/DL Total Bilirubin 0.3 0.1-1.0 MG/DL Aspartate Amino Transf (AST/SGOT) 19 5-34 U/L Alanine Aminotransferase (ALT/SGPT) 17 0-55 U/L Alkaline Phosphatase 88 40-136 U/L Total Protein 7.5 6.4-8.2 GM/DL Albumin 4.1 3.2-4.5 GM/DL Thyroid Stimulating Hormone (TSH) 2.21 0.35-4.94 UIU/ML Urine Color YELLOW Urine Clarity CLEAR Urine pH 5.0 5-9 Urine Specific [place] 1.020 1.016-1.022 Urine Protein TRACE H NEGATIVE Urine Glucose (UA) NEGATIVE NEGATIVE Urine Ketones NEGATIVE NEGATIVE Urine Nitrite POSITIVE H NEGATIVE Urine Bilirubin NEGATIVE NEGATIVE Urine Urobilinogen 0.2 < = 1.0 MG/DL Urine Leukocyte Esterase 1+ H NEGATIVE Urine RBC (Auto) TRACE-I H NEGATIVE Urine RBC 0-2 /HPF Urine WBC 50-100 H /HPF Urine Squamous Epithelial Cells NONE /HPF Urine Crystals NONE /LPF Urine Bacteria LARGE H /HPF Urine Casts NONE /LPF Urine Mucus NEGATIVE /LPF Urine Culture Indicated YES Urine Opiates Screen NEGATIVE NEGATIVE Urine Oxycodone Screen NEGATIVE NEGATIVE Urine Methadone Screen NEGATIVE NEGATIVE Urine Propoxyphene Screen NEGATIVE NEGATIVE Urine Barbiturates Screen NEGATIVE NEGATIVE Ur Tricyclic Antidepressants Screen POSITIVE H NEGATIVE Urine Phencyclidine Screen NEGATIVE NEGATIVE Urine Amphetamines Screen NEGATIVE NEGATIVE Urine Methamphetamines Screen NEGATIVE NEGATIVE Urine Benzodiazepines Screen NEGATIVE NEGATIVE Urine Cocaine Screen NEGATIVE NEGATIVE Urine Cannabinoids Screen NEGATIVE NEGATIVE My Orders Orders - [facility] RECEIVING SPECIALIST Cbc With Automated Diff (01/04/22 12:25) Comprehensive Metabolic Panel (01/04/22 12:25) Ekg Tracing (01/04/22 12:25) Thyroid Stimulating Hormone (01/04/22 12:25) Ua Culture If Indicated (01/04/22 12:25) Drug Screen Stat (Urine) (01/04/22 12:25) Urine Culture (01/04/22 12:57) Ceftriaxone 1 Gm Pre-Mix (Rocephin 1 Gm (01/04/22 14:15) Ed Admission (Communication) (01/04/22 15:23) Medications Given in ED Current Medications Medications Dose Ordered Sig/Fahad Route Start Time Stop Time Status Last Admin Dose Admin Ceftriaxone Sodium/Dextrose 50 ml @ 100 mls/hr ONCE ONCE IV 01/04/22 14:15 01/04/22 14:44 DC 01/04/22 14:25 100 MLS/HR Vital Signs/I&O 01/04/22 12:18 Temp 35.6 Pulse 93 Resp 18 B/P (MAP) 137/68 (91) Pulse Ox 95 01/05/22 00:00 Intake Total 50 ml Balance 50 ml Capillary Refill : Less Than 3 Seconds Blood Pressure Mean: 91 Progress Note : Progress Note Labs indicative of UTI. Given Rocephin 1gm IV in ED. Will plan to admit observation due to increased confusion, insomnia, and UTI. Discussed case with Dr. Goodman and she is agreeable with plan. Had social services director visit with spouse to develop a plan to provide her in home assistance or options for respite care in future. ECG Initial ECG Impression Date: Jan 04, 2022 Initial ECG Impression Time: 14:11 Initial ECG Rate: 71 Initial ECG Rhythm: Normal Sinus Initial ECG Impression: Normal Departure Communication (Admissions) Time/Spoke to Admitting Phy: 14:11 Dr. Goodman Impression Primary Impression: Urinary tract infection Disposition: ADMITTED INPATIENT Condition: Stable Admissions Decision to Admit Reason: Admit from ER (General) Decision to Admit/Date: Jan 05, 2022 Time/Decision to Admit Time: 14:00 Departure-Patient Inst. Referrals: EZIO ROSSI MD (PCP/Family) Primary Care Physician Scripts Cranberry Extract (Cranberry) 500 Mg Tablet 500 MG PO DAILY for 30 Days, TAB Prov: HERMINIO GOODMAN DO 01/04/22 Melatonin (Melatonin) 10 Mg Tablet 10 MG PO DAILY for 30 Days, TAB Prov: HERMINIO GOODMAN DO 01/04/22 Atorvastatin Calcium (Lipitor) 80 Mg Tablet 80 MG PO HS for 30 Days, TAB Prov: HERMINIO GOODMAN DO 01/04/22 Quetiapine Fumarate (Quetiapine Fumarate) 100 Mg Tablet 200 MG PO HS for 30 Days, TAB Prov: HERMINIO GOODMAN DO 01/04/22 Pramipexole Di-HCl (Mirapex) 1 Mg Tablet 1.5 MG PO HS for 30 Days, TAB TAKES 2 (1MG) TABLETS Prov: HERMINIO GOODMAN DO 01/04/22 Copy Copies To 1: EZIO ROSSI MD, STORMY D APRN Jan 04, 2022 14:11
[2022-01-04] MEDS ORDERED: cefTRIAXone 1 GM PRE-MIX 50 ML IV ONE (14:15)
[2022-01-04] MEDS ORDERED: ONDANSETRON 4 MG (ZOFRAN) ORAL DISSOLVE TAB PO PRN (16:30)
[2022-01-04] MEDS ORDERED: diphenhydrAMINE 50 MG/ML INJ (BENADRYL) IVP PRN (16:30)
[2022-01-04] MEDS ORDERED: cloNIDine 0.1 MG (CATAPRES) TAB PO PRN (16:30)
[2022-01-04] MEDS ORDERED: MILK OF MAGNESIA 400 MG/5 ML 30 ML UDC PO PRN (16:30)
[2022-01-04] MEDS ORDERED: morphine INJ 4 MG/ML 1 ML (VIAL/SYRINGE) IV PRN (16:30)
[2022-01-04] MEDS ORDERED: ANTACID SUSP 30 ML UDC (MYLANTA) PO PRN (16:30)
[2022-01-04] MEDS ORDERED: MELATONIN 3 MG TABLET PO PRN (16:30)
[2022-01-04] MEDS ORDERED: BISACODYL 10 MG SUPP (DULCOLAX) PR PRN (16:30)
[2022-01-04] MEDS ORDERED: polyethylene glycoL POWDER 17 GM (MIRALAX) PACK PO PRN (16:30)
[2022-01-04] MEDS ORDERED: LACTULOSE SYRUP 10GM/15ML (ENULOSE) 30ML UDC PO PRN (16:30)
[2022-01-04] MEDS ORDERED: CALCIUM CARBONATE 500 MG (TUMS) TAB.CHEW PO PRN (16:30)
[2022-01-04] MEDS ORDERED: diphenhydrAMINE 25 MG TAB (BENADRYL) PO PRN (16:30)
[2022-01-04] MEDS ORDERED: FLU QUAD HIGH DOSE 240 MCG/0.7 ML 2022-23 (FLUZONE) IM ONE (18:45)
[2022-01-04 19:45] VITALS: BP 143/66
[2022-01-04] MEDS ORDERED: MELA10TA2 PO (20:44)
[2022-01-04] MEDS ORDERED: QUET100T33 PO (20:44)
[2022-01-04] MEDS ORDERED: PRAM1TAB2 PO (20:44)
[2022-01-04] MEDS ORDERED: ATOR80TA64 PO (20:44)
[2022-01-04] MEDS ORDERED: CRAN500T4 PO (20:44)
[2022-01-04] MEDS: DOCUSATE SODIUM 100 MG (COLACE) CAP PO SCH (20:49)
[2022-01-04] MEDS: SENNOSIDES 8.6 MG (SENOKOT) TAB PO SCH (20:50)
[2022-01-04] MEDS: LORazepam 0.5 MG (ATIVAN) TABLET PO PRN (21:25)
[2022-01-04] MEDS: WATER (STERILE) FOR INJ 10 ML BTL INJ SCH (21:32)
[2022-01-04] MEDS: ZIPRASIDONE 20 MG INJ (GEODON) VIAL IM PRN (21:32)
[2022-01-04] MEDS: ISOSORBIDE MONONITRATE 60 MG (IMDUR) TAB PO SCH (22:09)
[2022-01-04] MEDS: MELATONIN 10 MG TABLET PO SCH (22:10)
[2022-01-04] MEDS: PRAMIPEXOLE 0.5 MG TAB (MIRAPEX) PO SCH (22:10)
[2022-01-04] MEDS: QUEtiapine 100 MG (SEROquel) TAB IMMEDIATE RELEASE PO SCH (22:10)
[2022-01-05] VITALS (7 sets, daily range): BP systolic 116–168; BP diastolic 58–83
[2022-01-05 05:51] LABS: BASOPHILS % (AUTO) 0 % (0-10); EOSINOPHILS # (AUTO) 0.3 10^3/uL (0.0-0.3); EOSINOPHILS % (AUTO) 4 % (0-10); HEMATOCRIT 38 % (40-54); HEMOGLOBIN 12.6 g/dL (13.3-17.7); LYMPHOCYTES # (AUTO) 0.7 10^3/uL (1.0-4.0); LYMPHOCYTES % (AUTO) 10 % (12-44); MEAN CORPUSCULAR HEMOGLOBIN 31 pg (25-34); MEAN CORPUSCULAR HGB CONC 33 g/dL (32-36); MEAN CORPUSCULAR VOLUME 95 fL (80-99); MEAN PLATELET VOLUME 9.4 fL (9.0-12.2); MONOCYTES # (AUTO) 0.5 10^3/uL (0.0-1.0); MONOCYTES % (AUTO) 7 % (0-12); NEUTROPHILS # (AUTO) 5.6 10^3/uL (1.8-7.8); NEUTROPHILS % (AUTO) 78 % (42-75); PLATELET COUNT 240 10^3/uL (130-400); WHITE BLOOD COUNT 7.1 10^3/uL (4.3-11.0)
[2022-01-05 06:19] LABS: ALBUMIN 3.9 GM/DL (3.2-4.5); BILIRUBIN,TOTAL 0.2 MG/DL (0.1-1.0); CALCIUM 9.3 MG/DL (8.5-10.1); CREATININE SERUM 1.75 MG/DL (0.60-1.30); POTASSIUM 4.7 MMOL/L (3.6-5.0); TOTAL PROTEIN 7.6 GM/DL (6.4-8.2)
[2022-01-05] MEDS: DOCUSATE SODIUM 100 MG (COLACE) CAP PO SCH ×2 (08:55→20:54)
[2022-01-05] MEDS: SENNOSIDES 8.6 MG (SENOKOT) TAB PO SCH ×2 (08:55→20:54)
[2022-01-05] MEDS ORDERED: NON-FORMULARY MEDICATION 1 EA EA (Cranberry Extract (Cranberry) 500 MG) PO SCH (09:00)
--- NOTE | 2022-01-05 09:00 | Physical Therapy Evaluation ---
PT Evaluation-General Medical Diagnosis Admission Date Jan 04, 2022 at 15:25 Medical Diagnosis: AMS Onset Date: Jan 04, 2022 Therapy Diagnosis Therapy Diagnosis: impaired mobility, strength Height/Weight Height (Feet): 5 Height (Inches): 7.00 Weight (Pounds): 195 Weight (Ounces): 0 Precautions Precautions/Isolations: Standard Precautions Referral Physician: Brianna Quintana DO Reason for Referral: Evaluation/Treatment Medical History Additional Medical History Past Medical History Surgery/Hospitalization HX: PMH: COPD, DM, HTN, UROSTOMY BAG Surgeries: Yes (LEFT WRIST, LEFT KNEE SCOPE, TOTAL LEFT KNEE, HEMORRHOIDS,TURP, urostomy ) Abdominal, Bladder Surgery, CABG, Coronary Stent, Joint Replacement, Nephrectomy, Prostatectomy, Urinary Diversion Respiratory: No Currently Using CPAP: No Currently Using BIPAP: No Cardiac: Yes (STENTS X5) Coronary Artery Disease, Heart Attack, High Cholesterol Neurological: Yes Dementia Reproductive Disorders: No Sexually Transmitted Disease: No HIV/AIDS: No Genitourinary: Yes (urostomy) Prostate Problems Gastrointestinal: Yes Obstructive Bowel Musculoskeletal: Yes Arthritis Endocrine: Yes Hypothyroidsim HEENT: Yes Hearing Impairment: Denies, Hearing Aide Right, Hearing Aide Left Cancer: Yes (NOSE) Bladder, Prostate, Kidney Did You Recieve Any Treatments: Yes What Type of Treatment Did You: Surgical Intervention Psychosocial: No Integumentary: No Blood Disorders: No Adverse Reaction/Blood Tranf: No Reviewed History: Yes Social History Current Living Status: Spouse Entry Into Home: Stairs Without Railing PT Steps Into Home: 2 Prior Prior Level of Function SCALE: Activities may be completed with or without assistive devices. 7-Vbibulorfn-cyvzprj completes the activity by him/herself with no assistance from a helper. 5-Set-up or Clean-up Assistance-helper sets up or cleans up; patient completes activity. Minco assists only prior to or following the activity. 4-Supervision or Touching Assistance-helper provides verbal cues and/or touching/steadying and/or contact guard assistance as patient completes activity. Assistance may be provided throughout the activity or intermittently. 3-Partial/Moderate Assistance-helper does LESS THAN HALF the effort. Minco lifts, holds or supports trunk or limbs, but provides less than half the effort. 2-Substantial/Maximal Assistance-helper does MORE THAN HALF the effort. Minco lifts or holds trunk or limbs and provides more than half the effort. 2-Kjqpmeplb-ojhvts does ALL the effort. Patient does none of the effort to complete the activity. Or, the assistance of 2 or more helpers is required for the patient to complete the activity. If activity was not attempted, code reason: 7-Patient Refused. 9-Not Applicable-not attempted and the patient did not perform the activity before the current illness, exacerbation or injury. 10-Not Attempted due to Environmental Limitations-(lack of equipment, weather restraints, etc.). 88-Not Attempted due to Medical Conditions or Safety Concerns. Bed Mobility: 6 Transfers (B,C,W/C): 3 Gait: 3 Indoor Mobility (Ambulation): Needed Some Help Stairs: Needed Some Help Prior Devices Use: Other-see list below (SPC) PT Evaluation-Current Subjective Patient in bed pre tx, agrees to PT, has no complaints of pain. Pt/Family Goals to be independent at home Objective Patient Orientation: Person, Confused urostomy ROM/Strength ROM Lower Extremities WNL Strength Lower Extremities LLE (hip flexion 3-/5, knee flexion 4/5, knee extension 4+/5, dorsiflexion 3+/5), RLE (hip flexion 3-/5, knee flexion 4/5, knee extension 4+/5, dorsiflexion 3+/5) Sensory Vision: Wears Glasses Hearing: Functional Sensation Right Lower Extremit: Intact Sensation Left Lower Extremity: Intact Transfers Roll Left to Right (QC): 6 Sit to Lying (QC): 6 Lying to Sitting/Side of Bed(Q: 6 Sit to Stand (QC): 4 Chair/Dbj-xu-Vaygk Xfer(QC): 4 CGA for transfers Gait Does the Patient Walk?: Yes Mode of Locomotion: Walk Anticipated Mode of Locomotion: Walk Walk 10 feet (QC): 4 Walk 50 ft with 2 Turns(QC): 4 Walk 150 ft (QC): 4 Distance: 150' Gait Assistive Device: Cane Single Point Comments/Gait Description CGA, some unsteadiness but no LOB Balance Sitting Static: Normal Sitting Dynamic: Normal Standing Static: Fair Standing Dynamic: Fair Treatment supine BLE exercise x20 (HS, AP) Assessment/Needs Patient in bed post tx with nurse call, phone, tray, bed alarm on. Patient would benefit from using a rolling walker to improve balance and decrease risk of falls. 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 Goals PT Jail Goals Time Frame: Jan 12, 2022 Roll Left & Right (QC): 6 Sit to Lying (QC): 6 Lying-Sitting on Side/Bed(QC): 6 Sit to Stand (QC): 4 (SBA) Chair/Nqg-ss-Immtz Xfer(QC): 4 (SBA) Walk 10 feet (QC): 4 (SBA) Walk 50ft with 2 Turns (QC): 4 (SBA) Walk 150 ft (QC): 4 (SBA) PT Plan Problem List Problem List: Activity Tolerance, Functional Strength, Safety, Balance, Gait, Transfer, Bed Mobility, ROM Treatment/Plan Treatment Plan: Continue Plan of Care Treatment Plan: Bed Mobility, Education, Functional Activity Álvaro, Functional Strength, Gait, Safety, Therapeutic Exercise, Transfers Treatment Duration: Jan 12, 2022 Frequency: 6 times per week Estimated Hrs Per Day: .25 hour per day Patient and/or Family Agrees t: Yes Safety Risks/Education Patient Education: Gait Training, Transfer Techniques, Correct Positioning, Safety Issues Teaching Recipient: Patient Teaching Methods: Demonstration, Discussion Response to Teaching: Reinforcement Needed Discharge Recommendations Plan Patient will perform bed mobility and transfer training, balance and endurance training, functional strengthening, stair training, gait training, and education, to improve functional mobility and independence at home. Therapy Discharge Recommendati: Scheduled Assistance, Home & Family, Post Acute PT Time/GCodes Time In: 08 Time Out: 08 Total Billed Treatment Time: 10 Total Billed Treatment 1 visit CINDY GARCIA PT Jan 05, 2022 09:00
--- NOTE | 2022-01-05 10:12 | Occupational Therapy Eval ---
OT Evaluation-General/PLF Medical Diagnosis Admission Date Jan 04, 2022 at 15:25 Medical Diagnosis: AMS Onset Date: Jan 04, 2022 Therapy Diagnosis Therapy Diagnosis: Unsteadiness Height/Weight Height (Feet): 5 Height (Inches): 7.00 Weight (Pounds): 195 Weight (Ounces): 0 Precautions Precautions/Isolations: Standard Precautions Referral Physician: Brianna Quintana DO Referral Reason: Evaluation/Treatment Medical History Pertinent Medical History: COPD, DM, HTN Current History Pt came to ER after being found wondering the streets. He was found by stranger and taken into DCF custody. He has vascular dementia and was unable to answer some questions of eval. Daughter was in the room, but was also unable to answer any questions due to not knowing his home life. Unknown what prior level of function is. They reported living in a house with his . He stated that he needed some help with ADLs. He was using a cane at base level, but has been unsteady for awhile. Reviewed History: Yes Social History Home: Single Level Current Living Status: Spouse Entry Into Home: Stairs Without Railing Steps Into Home: 2 ADL-Prior Level of Function SCALE: Activities may be completed with or without assistive devices. 8-Nufkangccs-davaisp completes the activity by him/herself with no assistance from a helper. 5-Set-up or Clean-up Assistance-helper sets up or cleans up; patient completes activity. [place] assists only prior to or following the activity. 4-Supervision or Touching Assistance-helper provides verbal cues and/or touching/steadying and/or contact guard assistance as patient completes activity. Assistance may be provided throughout the activity or intermittently. 3-Partial/Moderate Assistance-helper does LESS THAN HALF the effort. [place] lifts, holds or supports trunk or limbs, but provides less than half the effort. 2-Substantial/Maximal Assistance-helper does MORE THAN HALF the effort. [place] lifts or holds trunk or limbs and provides more than half the effort. 1-Bcxvmuytu-vwkrty does ALL the effort. Patient does none of the effort to complete the activity. Or, the assistance of 2 or more helpers is required for the patient to complete the activity. If activity was not attempted, code reason: 7-Patient Refused. 9-Not Applicable-not attempted and the patient did not perform the activity before the current illness, exacerbation or injury. 10-Not Attempted due to Environmental Limitations-(lack of equipment, weather restraints, etc.). 88-Not Attempted due to Medical Conditions or Safety Concerns. Self Care: Needed Some Help Functional Cognition: Dependent DME/Equipment: Bath Chair, Shower OT Current Status Subjective Pt sitting up in bed upon arrival with daughter in room. Pt and daughter agree to therapy eval. Daughter states she doesn't know a lot and doesn't think he will be able to answer accurately. Appearance Pt left sitting up in bed with bed alarm on. All needs within reach. Mental Status/Objective Patient Orientation: Person, Confused Attachments: Colostomy/Ileostomy, Cespedes Catheter Current Upper Extremity ROM R shoulder: old injury ~100 degrees L shoulder: WNL Upper Extremity Strength Telecommunication Engineer strength: WNL L shoulder: 5/5 R shoulder: not tested due to pain ADL-Treatment Eating (QC): 5 Lower Body Dressing (QC): 4 On/Off Footwear (QC): 6 (slip on shoes) Pt just finished breakfast upon arrival. Pt dons slip on shoes with indepe ndence. Sit<>stand transfer: Supervision. Pt ambulated within thomas with close SBA/CGA with use of cane. Pt is unsteady while ambulating, but never lost his balance. He independently verbalizes that he needs to pick his feet up higher to decrease chance of fall. He reports having assistance with getting in/out of shower at baseline as well as having assist with emptying urostomy bag. Anticipate this is correct. Pt may require close supervision/cga when donning pants over hips during toileting or dressing tasks, however this is likely baseline secondary to being unsteady at baseline. Pt will require intermittent supervision for safety if returning home. No skilled OT services warranted at this time. Education OT Patient Education: Correct positioning, Modified ADL techniques, Progress toward Goal/Update tx plan, Purpose of tx/functional activities, Reviewed precautions, Rehab process, Safety issues, Transfer techniques Teaching Recipient: Patient, Family Teaching Methods: Demonstration, Discussion Response to Teaching: Verbalize Understanding, Return Demonstration, Reinforcement Needed OT Fdc Goals Fdc Goals Time Frame: Jan 05, 2022 1=Demonstrate adherence to instructed precautions during ADL tasks. 2=Patient will verbalize/demonstrate understanding of assistive devices/modifications for ADL. 3=Patient will improve strength/tolerance for activity to enable patient to perform ADL's. OT Education/Plan Problem List/Assessment Assessment: Decreased Safety Aware, Impaired Cognition, Impaired Coordination, Impaired Funct Balance, Impaired I ADL's, Impaired Self-Care Skills Discharge Recommendations Plan/Recommendations: Discontinue OT Therapy Discharge Recommendati: 24 Hour Supervision, Bath Aide, Homemaker Support, Home & Family Treatment Plan/Plan of Care Treatment,Training & Education: Yes Patient would benefit from OT for education, treatment and training to promote independence in ADL's, mobility, safety and/or upper extremity function for ADL's. Plan of Care: ADL Retraining, Functional Mobility Treatment Duration: Jan 05, 2022 Frequency: 1 time per week Estimated Hrs Per Day: .25 hour per day Agreement: Yes Rehab Potential: Fair Time/GCodes Start Time: 09:27 Stop Time: 09:38 Total Time Billed (hr/min): 11 Billed Treatment Time 1 visit Bertha Hernandez OT Jan 05, 2022 10:12
[2022-01-05] MEDS: cefTRIAXone 1 GM PRE-MIX 50 ML IV SCH (12:04)
--- NOTE | 2022-01-05 14:40 | History & Physical ---
BETOSHORTYESTEFANIA WARD 01/05/22 1440: History of Present Illness History of Present Illness Reason for visit/HPI CC: UTI 86yo M with h/o vascular dementia, bladder and renal cancer with urostomy bag was admitted following presentation to the ED yesterday for increased confusion and REESE. Per ED note, pt has experienced worsening dementia and yesterday, pt "wandered off" from home. Pt was found by a neighbor and placed into DCF custody. This prompted the to bring the pt to the ED for evaluation d/t increasingly altered behavior. Workup was unremarkable except for a positive UA for klebisella/ enterobacter. Pt was given a dose of Rocephin and then admitted to the floor. Today, pt is resting in bed and seems in good spirits. Pt is oriented to only self and is not sure why he is here. Pt was able to eat this morning without issue. Pt has a urostomy bag with output this morning. Pt notes that he has experienced some R shoulder pain, but cannot reproduce pain with movement or palpation. Otherwise pt has no complaints. Pt denies CP, nausea, vomiting, SOB, diarrhea, and sweats. Date of Admission Jan 04, 2022 at 15:25 Date Seen by a Provider: Jan 05, 2022 Time Seen by a Provider: 14:41 I consulted on this patient on 01/05/22 14:29 Attending Physician Ezio Townsend MD Admitting Physician Admitting Physician: Brianna Goodman DO Attending Physician: Ezio Townsend MD Consult Allergies and Home Medications Allergies Coded Allergies: NKANo Known Allergies (Verified Allergy, Mild, 11/24/11) Uncoded Allergies: BEE STINGS (Allergy, Severe, SOA/HIVES, 11/01/10) Patient Home Medication List Home Medication List Reviewed: Yes Acetaminophen (Tylenol) 325 Mg Capsule, 650 MG PO BID PRN for PAIN-MILD (1-4), (Reported) Entered as Reported by: IRAJ OHUSE on 05/10/19 3367 Last Action: Reviewed Albuterol Sulfate (Ventolin Hfa) 1 Puff Puff, 2 PUFF INH BID PRN for SHORTNESS OF BREATH, (Reported) Entered as Reported by: HARRISON WAYNE on 09/12/20 4448 Last Action: Reviewed Atorvastatin Calcium (Atorvastatin Calcium) 80 Mg Tablet, 80 MG PO HS, (Reported) Entered as Reported by: DEXTER LARKIN on 01/05/22 1544 Last Action: Reviewed Cranberry Extract (Cranberry) 500 Mg Tablet, 500 MG PO DAILY Prescribed by: BRIANNA GOODMAN on 01/04/222043 Last Action: Reviewed Cyclobenzaprine HCl (Cyclobenzaprine HCl) 5 Mg Tablet, 5 MG PO BID PRN for MUSCLE SPASMS, (Reported) Entered as Reported by: DEXTER LARKIN on 01/05/22 154 Last Action: Reviewed Dextromethorphan HBr/Chlor-Mal (Coricidin Hbp Cough & Cold Tab) 1 Each Tablet, 1 EACH PO HS, (Reported) Entered as Reported by: HARRISON WAYNE on 09/12/20 1207 Last Action: Reviewed Diltiazem HCl (Diltiazem HCl) 30 Mg Tablet, 30 MG PO DAILY, (Reported) Entered as Reported by: HARRISON WAYNE on 09/12/20 1155 Last Action: Reviewed Ferrous Sulfate (Iron) 325 Mg Tablet, 325 MG PO DAILY, (Reported) Entered as Reported by: HARRISON WAYNE on 09/12/20 1204 Last Action: Reviewed Fluticasone Propionate (Flonase Allergy Relief) 50 Mcg/Actuation Mil[place].susp, 1 SPRAY NS BID PRN for CONGESTION, (Reported) Entered as Reported by: VALENTIN ANTHONY on 09/14/20 1405 Last Action: Reviewed Furosemide (Furosemide) 40 Mg Tablet, 40 MG PO DAILY PRN for FLUID RETENTION, (Reported) Entered as Reported by: EDXTER LARKIN on 01/05/22 154 Last Action: Reviewed Isosorbide Mononitrate (Isosorbide Mononitrate ER) 30 Mg Tab.er.24h, 30 MG PO DAILY, (Reported) Entered as Reported by: IRAJ HOUSE on 05/10/19 5351 Last Action: Reviewed Isosorbide Mononitrate (Isosorbide Mononitrate ER) 60 Mg Tab, 60 MG PO HS, (Reported) Entered as Reported by: HARRISON WAYNE on 09/12/20 1149 Last Action: Reviewed Levothyroxine Sodium (Levothyroxine Sodium) 50 Mcg Tablet, 50 MCG PO DAILY, (Reported) Entered as Reported by: SELIN PINZON on 07/31/15 1312 Last Action: Reviewed Lisinopril (Lisinopril) 2.5 Mg Tablet, 2.5 MG PO DAILY, (Reported) Entered as Reported by: DEXTER LARKIN on 01/05/221543 Last Action: Reviewed Melatonin (Melatonin) 10 Mg Tablet, 10 MG PO HS, (Reported) Entered as Reported by: DEXTER LARKIN on 01/05/221543 Last Action: Reviewed Metformin HCl (Metformin HCl) 500 Mg Tablet, 500 MG PO HS, (Reported) Entered as Reported by: DEXTER LARKIN on 01/05/221543 Last Action: Reviewed Omeprazole (Omeprazole) 40 Mg Capsule.dr, 40 MG PO DAILY, (Reported) Entered as Reported by: IRAJ HOUSE on 05/10/19 0765 Last Action: Reviewed Potassium Gluconate (Potassium Gluconate) 595 Mg (99 Mg) Tablet.er, 99 MG PO DAILY PRN for WHEN TAKING FUROSEMIDE, (Reported) Entered as Reported by: DEXTER LARKIN on 01/05/221543 Last Action: Reviewed Pramipexole Di-HCl (Mirapex) 1 Mg Tablet, 1.5 MG PO HS, (Reported) Entered as Reported by: AHRRISON WAYNE on 09/12/20 1152 Last Action: Reviewed Pramipexole Di-HCl (Pramipexole Dihydrochloride) 1 Mg Tablet, 0.5 MG PO 0700,1200, (Reported) Entered as Reported by: DEXTER LARKIN on 01/05/221543 Last Action: Reviewed Quetiapine Fumarate (Quetiapine Fumarate) 100 Mg Tablet, 100 MG PO 1200, (Reported) Entered as Reported by: DEXTER LARKIN on 01/05/221543 Last Action: Reviewed Quetiapine Fumarate (Quetiapine Fumarate) 25 Mg Tablet, 75 MG PO DAILY, (Rep orted) Entered as Reported by: DEXTER LARKIN on 01/05/221543 Last Action: Reviewed Quetiapine Fumarate (Quetiapine Fumarate) 100 Mg Tablet, 200 MG PO HS, (Reported) Entered as Reported by: DEXTER LARKIN on 01/05/221543 Last Action: Reviewed Discontinued Medications Aspirin (Aspirin EC) 81 Mg Tablet.dr, 81 MG PO RAJAT LONDONO, (Reported) Discontinued Reason: No Longer Taking Entered as Reported by: VALENTIN ANTHONY on 09/14/20 1405 Last Action: Discontinued Atorvastatin Calcium (Atorvastatin Calcium) 40 Mg Tablet, 40 MG PO HS, (Reported) Discontinued Reason: Duplicate Order Entered as Reported by: HARRISON WAYNE on 09/12/20 1153 Last Action: Discontinued Atorvastatin Calcium (Lipitor) 80 Mg Tablet, 80 MG PO HS Discontinued Reason: Duplicate Order Prescribed by: BRIANNA GOODMAN on 01/04/222043 Last Action: Discontinued Cranberry Extract (Cranberry) 500 Mg Tablet, 500 MG PO BID, (Reported) Discontinued Reason: Duplicate Order Entered as Reported by: HARRISON WAYNE on 09/12/20 1213 Last Action: Discontinued Docusate Sodium (Docusate Sodium) 100 Mg Capsule, 100 MG PO DAILY, (Reported) Discontinued Reason: No Longer Taking Entered as Reported by: SELIN PINZON on 07/31/15 1312 Last Action: Discontinued Docusate Sodium (Docusate Sodium) 100 Mg Capsule, 200 MG PO HS, (Reported) Discontinued Reason: No Longer Taking Entered as Reported by: HARRISON WAYNE on 09/12/20 1202 Last Action: Discontinued Gabapentin (Neurontin) 300 Mg Capsule, 300 MG PO HS, (Reported) Discontinued Reason: No Longer Taking Entered as Reported by: HARRISON WAYNE on 09/12/20 1156 Last Action: Discontinued Lactobacillus Acidophilus (Acidophilus) 1 Each Capsule, 1 EACH PO TID Discontinued Reason: No Longer Taking Prescribed by: EZIO TOWNSEND on 09/15/20 0945 Last Action: Discontinued Levofloxacin (Levofloxacin) 750 Mg Tablet, 750 MG PO Q48H Prescribed by: EZIO TOWNSEND on 09/15/20 0945 Last Action: Discontinued Levofloxacin (Levofloxacin) 750 Mg Tablet, 750 MG PO DAILY Prescribed by: ELIZABETH ENGLAND on 03/16/21 1916 Last Action: Discontinued Lisinopril (Lisinopril) 5 Mg Tablet, 2.5 MG PO DAILY, (Reported) Discontinued Reason: Duplicate Order Entered as Reported by: IRAJ HOUSE on 05/10/19 7135 Last Action: Discontinued Loratadine (Claritin) 10 Mg Tablet, 10 MG PO DAILY, (Reported) Discontinued Reason: No Longer Taking Entered as Reported by: HARRISON WAYNE on 09/12/20 1206 Last Action: Discontinued Melatonin (Melatonin) 10 Mg Tablet, 10 MG PO DAILY Discontinued Reason: Duplicate Order Prescribed by: BRIANNA GOODMAN on 01/04/222043 Last Action: Discontinued Melatonin/Pyridoxine HCl (B6) (Melatonin 10 mg Tablet) 1 Each Tab.mphase, 1 EACH PO HS, (Reported) Discontinued Reason: Duplicate Order Entered as Reported by: HARRISON WAYNE on 09/12/20 1217 Last Action: Discontinued Multivitamin (Multi-Vitamin Daily) 1 Each Tablet, 1 TAB PO DAILY, (Reported) Discontinued Reason: No Longer Taking Entered as Reported by: DENITA FUNES on 07/02/15 1638 Last Action: Discontinued Ondansetron (Ondansetron Odt) 4 Mg Tab.rapdis, 4 MG PO Q6H PRN for NAUSEA/VOMITING, (Reported) Discontinued Reason: No Longer Taking Entered as Reported by: IRAJ HOUSE on 05/10/192253 Last Action: Discontinued Pramipexole Di-HCl (Mirapex) 1 Mg Tablet, 1.5 MG PO HS Discontinued Reason: Duplicate Order Prescribed by: BRIANNA GOODMAN on 01/04/222043 Last Action: Discontinued Quetiapine Fumarate (Quetiapine Fumarate) 50 Mg Tablet, 50 MG PO DAILY, (Reported) Entered as Reported by: HARRISON WAYNE on 09/12/20 1159 Last Action: Discontinued Quetiapine Fumarate (Quetiapine Fumarate) 50 Mg Tablet, 50 MG PO 1400, (Reported) Entered as Reported by: HARRISON WAYNE on 09/12/20 1200 Last Action: Discontinued Quetiapine Fumarate (Quetiapine Fumarate) 25 Mg Tablet, 25 MG PO 1400, (Re ported) Entered as Reported by: VALENTIN ANTHONY on 09/14/20 1405 Last Action: Discontinued Quetiapine Fumarate (Quetiapine Fumarate) 100 Mg Tablet, 200 MG PO HS Discontinued Reason: Duplicate Order Prescribed by: BRIANNA GOODMAN on 01/04/222043 Last Action: Discontinued Tramadol HCl (Ultram) 50 Mg Tablet, 50 MG PO Q6H PRN for PAIN-MODERATE (5-7), (Reported) Discontinued Reason: No Longer Taking Entered as Reported by: IRAJ HOUSE on 05/10/192253 Last Action: Discontinued Tramadol HCl (Tramadol HCl) 50 Mg Tablet, 50 MG PO HS, (Reported) Discontinued Reason: No Longer Taking Entered as Reported by: HARRISON WAYNE on 09/12/20 1208 Last Action: Discontinued Vitamin B Complex (Vitamin B Complex) 1 Each Tablet, 1 EACH PO 1400, (Reported) Discontinued Reason: No Longer Taking Entered as Reported by: VALENTIN ANTHONY on 09/14/20 1405 Last Action: Discontinued [[place]/Zinc/Turmeric] , 1 CAP PO BID, (Reported) Discontinued Reason: No Longer Taking Entered as Reported by: DEXTER LARKIN on 05/13/19 1105 Last Action: Discontinued [mag/calcium/zinc] , 1 TAB BID, (Reported) Discontinued Reason: No Longer Taking Entered as Reported by: HARRISON WAYNE on 09/12/20 1217 Last Action: Discontinued Past Xrfzbvu-Wewthi-Usgveb Hx Patient Social History Tobacco Use?: Yes Tobacco type used: Cigarettes Smoking Status: Former Smoker Substance use?: Yes Substance type: Caffeine Substance frequency: Daily Alcohol Use?: No Alcohol Frequency: Rarely Pt feels they are or have been: No Immunizations Up To Date Date of Influenza Vaccine: Jan 12, 2019 First/Initial COVID19 Vaccinat: APR Second COVID19 Vaccination Bc: MAY Tetanus Booster (TDap): Unknown Hepatitis A: No Hepatitis B: No Date of Pneumonia Vaccine: Feb 03, 2015 Seasonal Allergies Seasonal Allergies: Yes Current Status Advance Directives: Yes Communicates: Verbally Primary Language: Tunisian Preferred Spoken Language: Tunisian Is interpretation needed?: No Sensory deficits: Hearing impairment Past Medical History Surgeries: Abdominal, Bladder Surgery, CABG, Coronary Stent, Joint Replacement, Nephrectomy, Prostatectomy, Urinary Diversion Currently Using CPAP: No Currently Using BIPAP: No Coronary Artery Disease, Heart Attack, High Cholesterol Dementia Sexually Transmitted Disease: No HIV/AIDS: No Prostate Problems Obstructive Bowel Arthritis Hypothyroidsim Hearing Impairment: Denies, Hearing Aide Right, Hearing Aide Left Bladder, Prostate, Kidney Did You Recieve Any Treatments: Yes What Type of Treatment Did You: Surgical Intervention Blood Disorders: No Adverse Reaction/Blood Tranf: No Family Medical History Arthritis 19 FATHER 19 MOTHER Diabetes mellitus 19 FATHER Myocardial infarction 19 FATHER 19 MOTHER Respiratory disorder G8 SISTER No Family History of: AIDS Chariton's disease Alcoholism Alzheimer's disease Cancer of mouth Colon cancer Completed stroke Dementia Kidney disease Parkinson's disease Prostate cancer Psychosocial problem Seizure disorder Severe allergy Thyroid disease Tuberculosis No Pertinent Family Hx ADDITIONAL PAST SURGICAL HISTORY: -SURGERIES FOR CANCER--PROSTATE, BLADDER, URETERAL, AND RENAL WITH LEFT NEPHRECTOMY AND PERMANENT UROSTOMY -3 VESSEL CABG -CARDIAC CATHS WITH STENTS X 7-8 Review of Systems Constitutional: No chills, No diaphoresis EENTM: No ear pain, No blurred vision Respiratory: No cough, No dyspnea on exertion Cardiovascular: No chest pain, No edema Gastrointestinal: No abdominal pain, No diarrhea, No nausea, No vomiting Genitourinary: No decreased output, No discharge Musculoskeletal: No back pain, No gout; other (c/o R shoulder pain) Skin: No change in color, No change in hair/nails Psychiatric/Neurological: Denies Anxiety, Denies Depressed All Other Systems Reviewed Negative Unless Noted: Yes Physical Exam Vital Signs Vital Signs - First Documented 01/04/22 01/04/22 12:18 16:49 Temp 35.6 Pulse 93 Resp 18 B/P (MAP) 137/68 (91) Pulse Ox 95 O2 Delivery Room Air Capillary Refill : Less Than 3 Seconds Height, Weight, BMI Height: 5'7.00" Weight: 195lbs. 0oz. [id number]; 31.85 BMI Method:Stated General Appearance: No Apparent Distress, WD/WN HEENT: PERRL/EOMI, Moist Mucous Membranes Neck: Normal Inspection, Supple Respiratory: Lungs Clear, Normal Breath Sounds, No Accessory Muscle Use Cardiovascular: Regular Rate, Rhythm, No Edema, No Murmur Gastrointestinal: Non Tender, Soft Back: Normal Inspection, No CVA Tenderness Extremity: Normal Inspection, No Calf Tenderness, No Pedal Edema Neurologic/Psychiatric: Alert; No Oriented x3 (oriented to self only) Skin: Normal Color, Warm/Dry Lymphatic: No Adenopathy Assessment/Plan Assessment and Plan 1. UTI -UA positive for Klebisella/enterobacter, started on IV Cefriaxone Q24H 2. Leukocytosis -WBC increased from 11.7 yesterday to 12.6 today. Pt is afebrile. Continue to monitor 3. Dementia -transaction advisory services manager spoke to pt's about caregiver concerns/fatigue. Spouse does not want to place pt in a [place] [facility] facility -Unsure of pt mentation baseline, but is cooperative in room, friendly, and is able to recognize family in room -Consult PT/OT 4. Insomnia -pt given melatonin last night, continue prn 5. 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 -continues to have output, urine seems clear and light Continue IV Abx Consider DC tomorrow pending arrangements with family Admission Diagnosis UTI Admission Status: Inpatient Order (span 2 midnights) Reason for Inpatient Admission: UTI BRIANNA GOODMAN DO 01/05/22 2019: Allergies and Home Medications Allergies Coded Allergies: NKANo Known Allergies (Verified Allergy, Mild, 11/24/11) Uncoded Allergies: BEE STINGS (Allergy, Severe, SOA/HIVES, 11/01/10) Patient Home Medication List Acetaminophen (Tylenol) 325 Mg Capsule, 650 MG PO BID PRN for PAIN-MILD (1-4), (Reported) Entered as Reported by: IRAJ HOUSE on 05/10/19 0000 Last Action: Reviewed Albuterol Sulfate (Ventolin Hfa) 1 Puff Puff, 2 PUFF INH BID PRN for SHORTNESS OF BREATH, (Reported) Entered as Reported by: HARRISON WAYNE on 09/12/20 1528 Last Action: Reviewed Atorvastatin Calcium (Atorvastatin Calcium) 80 Mg Tablet, 80 MG PO HS, (Reported) Entered as Reported by: DEXTER LARKIN on 01/05/22 154 Last Action: Reviewed Cranberry Extract (Cranberry) 500 Mg Tablet, 500 MG PO DAILY Prescribed by: BRIANNA GOODMAN on 01/04/222043 Last Action: Reviewed Cyclobenzaprine HCl (Cyclobenzaprine HCl) 5 Mg Tablet, 5 MG PO BID PRN for MUSCLE SPASMS, (Reported) Entered as Reported by: DEXTER LARKIN on 01/05/22 154 Last Action: Reviewed Dextromethorphan HBr/Chlor-Mal (Coricidin Hbp Cough & Cold Tab) 1 Each Tablet, 1 EACH PO HS, (Reported) Entered as Reported by: HARRISON WAYNE on 09/12/20 1207 Last Action: Reviewed Diltiazem HCl (Diltiazem HCl) 30 Mg Tablet, 30 MG PO DAILY, (Reported) Entered as Reported by: HARRISON WAYNE on 09/12/20 1155 Last Action: Reviewed Ferrous Sulfate (Iron) 325 Mg Tablet, 325 MG PO DAILY, (Reported) Entered as Reported by: HARRISON WAYNE on 09/12/20 1204 Last Action: Reviewed Fluticasone Propionate (Flonase Allergy Relief) 50 Mcg/Actuation Mil[place].susp, 1 SPRAY NS BID PRN for CONGESTION, (Reported) Entered as Reported by: VALENTIN ANTHONY on 09/14/20 1405 Last Action: Reviewed Furosemide (Furosemide) 40 Mg Tablet, 40 MG PO DAILY PRN for FLUID RETENTION, (Reported) Entered as Reported by: DEXTER LARKIN on 01/05/221543 Last Action: Reviewed Isosorbide Mononitrate (Isosorbide Mononitrate ER) 30 Mg Tab.er.24h, 30 MG PO DAILY, (Reported) Entered as Reported by: IRAJ HOUSE on 05/10/192253 Last Action: Reviewed Isosorbide Mononitrate (Isosorbide Mononitrate ER) 60 Mg Tab, 60 MG PO HS, (Reported) Entered as Reported by: HARRISON WAYNE on 09/12/20 1145 Last Action: Reviewed Levothyroxine Sodium (Levothyroxine Sodium) 50 Mcg Tablet, 50 MCG PO DAILY, (Reported) Entered as Reported by: SELIN PINZON on 07/31/15 1312 Last Action: Reviewed Lisinopril (Lisinopril) 2.5 Mg Tablet, 2.5 MG PO DAILY, (Reported) Entered as Reported by: DEXTER LARKIN on 01/05/221543 Last Action: Reviewed Melatonin (Melatonin) 10 Mg Tablet, 10 MG PO HS, (Reported) Entered as Reported by: DEXTER LARKIN on 01/05/221543 Last Action: Reviewed Metformin HCl (Metformin HCl) 500 Mg Tablet, 500 MG PO HS, (Reported) Entered as Reported by: DEXTER LARKIN on 01/05/221543 Last Action: Reviewed Omeprazole (Omeprazole) 40 Mg Capsule.dr, 40 MG PO DAILY, (Reported) Entered as Reported by: IRAJ HOUSE on 05/10/192253 Last Action: Reviewed Potassium Gluconate (Potassium Gluconate) 595 Mg (99 Mg) Tablet.er, 99 MG PO DAILY PRN for WHEN TAKING FUROSEMIDE, (Reported) Entered as Reported by: DEXTER LARKIN on 01/05/221543 Last Action: Reviewed Pramipexole Di-HCl (Mirapex) 1 Mg Tablet, 1.5 MG PO HS, (Reported) Entered as Reported by: HARRISON WAYNE on 09/12/20 1152 Last Action: Reviewed Pramipexole Di-HCl (Pramipexole Dihydrochloride) 1 Mg Tablet, 0.5 MG PO 0700,1200, (Reported) Entered as Reported by: DEXTER LARKIN on 01/05/22 154 Last Action: Reviewed Quetiapine Fumarate (Quetiapine Fumarate) 100 Mg Tablet, 100 MG PO 1200, (Reported) Entered as Reported by: DEXTER LARKIN on 01/05/221543 Last Action: Reviewed Quetiapine Fumarate (Quetiapine Fumarate) 25 Mg Tablet, 75 MG PO DAILY, (Reported) Entered as Reported by: DEXTER LARKIN on 01/05/221543 Last Action: Reviewed Quetiapine Fumarate (Quetiapine Fumarate) 100 Mg Tablet, 200 MG PO HS, (Reported) Entered as Reported by: DEXTER LARKIN on 01/05/221543 Last Action: Reviewed Discontinued Medications Aspirin (Aspirin EC) 81 Mg Tablet.dr, 81 MG PO RAJAT LONDONO, (Reported) Discontinued Reason: No Longer Taking Entered as Reported by: VALENTIN ANTHONY on 09/14/20 1405 Last Action: Discontinued Atorvastatin Calcium (Atorvastatin Calcium) 40 Mg Tablet, 40 MG PO HS, (Reported) Discontinued Reason: Duplicate Order Entered as Reported by: HARRISON WAYNE on 09/12/20 1153 Last Action: Discontinued Atorvastatin Calcium (Lipitor) 80 Mg Tablet, 80 MG PO HS Discontinued Reason: Duplicate Order Prescribed by: BRIANNA GOODMAN on 01/04/222043 Last Action: Discontinued Cranberry Extract (Cranberry) 500 Mg Tablet, 500 MG PO BID, (Reported) Discontinued Reason: Duplicate Order Entered as Reported by: HARRISON WAYNE on 09/12/20 1213 Last Action: Discontinued Docusate Sodium (Docusate Sodium) 100 Mg Capsule, 100 MG PO DAILY, (Reported) Discontinued Reason: No Longer Taking Entered as Reported by: SELIN PINZON on 07/31/15 1312 Last Action: Discontinued Docusate Sodium (Docusate Sodium) 100 Mg Capsule, 200 MG PO HS, (Reported) Discontinued Reason: No Longer Taking Entered as Reported by: HARRISON WAYNE on 09/12/20 1202 Last Action: Discontinued Gabapentin (Neurontin) 300 Mg Capsule, 300 MG PO HS, (Reported) Discontinued Reason: No Longer Taking Entered as Reported by: HARRISON WAYNE on 09/12/20 1156 Last Action: Discontinued Lactobacillus Acidophilus (Acidophilus) 1 Each Capsule, 1 EACH PO TID Discontinued Reason: No Longer Taking Prescribed by: EZIO TOWNSEND on 09/15/20 0945 Last Action: Discontinued Levofloxacin (Levofloxacin) 750 Mg Tablet, 750 MG PO Q48H Prescribed by: EZIO TOWNSEND on 09/15/20 0945 Last Action: Discontinued Levofloxacin (Levofloxacin) 750 Mg Tablet, 750 MG PO DAILY Prescribed by: ELIZABETH ENGLAND on 03/16/21 1916 Last Action: Discontinued Lisinopril (Lisinopril) 5 Mg Tablet, 2.5 MG PO DAILY, (Reported) Discontinued Reason: Duplicate Order Entered as Reported by: IRAJ HOUSE on 05/10/192253 Last Action: Discontinued Loratadine (Claritin) 10 Mg Tablet, 10 MG PO DAILY, (Reported) Discontinued Reason: No Longer Taking Entered as Reported by: HARRISON WAYNE on 09/12/20 1206 Last Action: Discontinued Melatonin (Melatonin) 10 Mg Tablet, 10 MG PO DAILY Discontinued Reason: Duplicate Order Prescribed by: BRIANNA GOODMAN on 01/04/222043 Last Action: Discontinued Melatonin/Pyridoxine HCl (B6) (Melatonin 10 mg Tablet) 1 Each Tab.mphase, 1 EACH PO HS, (Reported) Discontinued Reason: Duplicate Order Entered as Reported by: HARRISON WAYNE on 09/12/20 1217 Last Action: Discontinued Multivitamin (Multi-Vitamin Daily) 1 Each Tablet, 1 TAB PO DAILY, (Reported) Discontinued Reason: No Longer Taking Entered as Reported by: DENITA FUNES on 07/02/15 1638 Last Action: Discontinued Ondansetron (Ondansetron Odt) 4 Mg Tab.rapdis, 4 MG PO Q6H PRN for NAUSEA/VOMITING, (Reported) Discontinued Reason: No Longer Taking Entered as Reported by: IRAJ HOUSE on 05/10/192253 Last Action: Discontinued Pramipexole Di-HCl (Mirapex) 1 Mg Tablet, 1.5 MG PO HS Discontinued Reason: Duplicate Order Prescribed by: BRIANNA GOODMAN on 01/04/222043 Last Action: Discontinued Quetiapine Fumarate (Quetiapine Fumarate) 50 Mg Tablet, 50 MG PO DAILY, (Reported) Entered as Reported by: HARRISON WAYNE on 09/12/20 1159 Last Action: Discontinued Quetiapine Fumarate (Quetiapine Fumarate) 50 Mg Tablet, 50 MG PO 1400, (Reported) Entered as Reported by: HARRISON WAYNE on 09/12/20 1200 Last Action: Discontinued Quetiapine Fumarate (Quetiapine Fumarate) 25 Mg Tablet, 25 MG PO 1400, (Reported) Entered as Reported by: VALENTIN ANTHONY on 09/14/20 1405 Last Action: Discontinued Quetiapine Fumarate (Quetiapine Fumarate) 100 Mg Tablet, 200 MG PO HS Discontinued Reason: Duplicate Order Prescribed by: BRIANNA GOODMAN on 01/04/222043 Last Action: Discontinued Tramadol HCl (Ultram) 50 Mg Tablet, 50 MG PO Q6H PRN for PAIN-MODERATE (5-7), (Reported) Discontinued Reason: No Longer Taking Entered as Reported by: IRAJ HOUSE on 05/10/19 2254 Last Action: Discontinued Tramadol HCl (Tramadol HCl) 50 Mg Tablet, 50 MG PO HS, (Reported) Discontinued Reason: No Longer Taking Entered as Reported by: HARRISON WAYNE on 09/12/20 1208 Last Action: Discontinued Vitamin B Complex (Vitamin B Complex) 1 Each Tablet, 1 EACH PO 1400, (Reported) Discontinued Reason: No Longer Taking Entered as Reported by: VALENTIN ANTHONY on 09/14/20 1405 Last Action: Discontinued [[place]/Zinc/Turmeric] , 1 CAP PO BID, (Reported) Discontinued Reason: No Longer Taking Entered as Reported by: DEXTER LARKIN on 05/13/19 1105 Last Action: Discontinued [mag/calcium/zinc] , 1 TAB BID, (Reported) Discontinued Reason: No Longer Taking Entered as Reported by: HARRISON WAYNE on 09/12/20 1217 Last Action: Discontinued Past Lpujlmx-Xsbila-Xleybi Hx Patient Social History Marrital Status: Employed/Student: retired Smoking Status: Former Smoker Family Medical History Arthritis 19 FATHER 19 MOTHER Diabetes mellitus 19 FATHER Myocardial infarction 19 FATHER 19 MOTHER Respiratory disorder G8 SISTER No Family History of: AIDS Bill's disease Alcoholism Alzheimer's disease Cancer of mouth Colon cancer Completed stroke Dementia Kidney disease Parkinson's disease Prostate cancer Psychosocial problem Seizure disorder Severe allergy Thyroid disease Tuberculosis Review of Systems Constitutional: see HPI Physical Exam General Appearance: No Apparent Distress, WD/WN, Chronically ill Respiratory: Lungs Clear, Normal Breath Sounds Cardiovascular: Regular Rate, Rhythm Neurologic/Psychiatric: Alert Assessment/Plan Assessment and Plan IV abx Monitor closely Anti-psychotics Admission Diagnosis Admission Status: Observation Supervisory-Addendum Brief Verification & Attestation Participated in pt care: history, MDM, physical Personally performed: exam, history, MDM, supervision of care Care discussed with: Medical Student Procedures: n/a Results interpretation: Verified all documentation Verification and Attestation of Medical Student E/M Service A medical student performed and documented this service in my presence. I reviewed and verified all information documented by the medical student and made modifications to such information, when appropriate. I personally performed the physical exam and medical decision making. Brianna Goodman Jan 05, 2022,20:17 ESTEFANIA MARCELINO Jan 05, 2022 14:40 BRIANNA GOODMAN DO Jan 05, 2022 20:19
[2022-01-05] MEDS ORDERED: LISI2.5T13 PO (15:44)
[2022-01-05] MEDS ORDERED: PRAM1TAB5 PO (15:44)
[2022-01-05] MEDS ORDERED: QUET25TA35 PO (15:44)
[2022-01-05] MEDS ORDERED: MELA10TA2 PO (15:44)
[2022-01-05] MEDS ORDERED: METF-397 PO (15:44)
[2022-01-05] MEDS ORDERED: POTA99TA18 PO (15:44)
[2022-01-05] MEDS ORDERED: ATOR80TA76 PO (15:44)
[2022-01-05] MEDS ORDERED: QUET100T33 PO ×2 (15:44)
[2022-01-05] MEDS ORDERED: FURO40TA4 PO (15:44)
[2022-01-05] MEDS ORDERED: CYCL5TAB PO (15:44)
[2022-01-05] MEDS: ONDANSETRON 4 MG/2 ML (SDV) Z0FRAN IV PRN (16:21)
[2022-01-05] MEDS: LORazepam 0.5 MG (ATIVAN) TABLET PO PRN (20:54)
[2022-01-05] MEDS: MELATONIN 10 MG TABLET PO SCH (20:54)
[2022-01-05] MEDS: QUEtiapine 100 MG (SEROquel) TAB IMMEDIATE RELEASE PO SCH (20:54)
[2022-01-05] MEDS: PRAMIPEXOLE 0.5 MG TAB (MIRAPEX) PO SCH (20:54)
[2022-01-05] MEDS: ISOSORBIDE MONONITRATE 60 MG (IMDUR) TAB PO SCH (20:54)
[2022-01-05] MEDS ORDERED: NON-FORMULARY MEDICATION 1 EA EA (Potassium Gluconate 99 MG) PO PRN (21:15)
[2022-01-05] MEDS ORDERED: FUROSEMIDE 40 MG (LASIX) TAB PO PRN (21:15)
[2022-01-05] MEDS: ZIPRASIDONE 20 MG INJ (GEODON) VIAL IM PRN (23:19)
[2022-01-05] MEDS: WATER (STERILE) FOR INJ 10 ML BTL INJ SCH (23:20)
[2022-01-05] MEDS ORDERED: CYCLOBENZAPRINE 10 MG (FLEXERIL) TAB PO PRN (23:30)
[2022-01-05] MEDS ORDERED: FLUTICASONE NASAL SPRAY (FLONASE) 16 GM BTL NS PRN (23:45)
[2022-01-06 03:53] VITALS: BP 149/70
[2022-01-06] MEDS: PANTOPRAZOLE 40 MG (PROTONIX) TAB PO SCH (05:50)
[2022-01-06] MEDS: PRAMIPEXOLE 0.5 MG TAB (MIRAPEX) PO SCH ×3 (05:50→21:57)
[2022-01-06] MEDS: LEVOTHYROXINE 50 MCG (LEVOTHROID) TAB PO SCH (05:50)
[2022-01-06 06:01] LABS: BASOPHILS % (AUTO) 1 % (0-10); EOSINOPHILS # (AUTO) 0.3 10^3/uL (0.0-0.3); EOSINOPHILS % (AUTO) 4 % (0-10); HEMATOCRIT 35 % (40-54); HEMOGLOBIN 11.3 g/dL (13.3-17.7); LYMPHOCYTES # (AUTO) 0.8 10^3/uL (1.0-4.0); LYMPHOCYTES % (AUTO) 13 % (12-44); MEAN CORPUSCULAR HEMOGLOBIN 31 pg (25-34); MEAN CORPUSCULAR HGB CONC 32 g/dL (32-36); MEAN CORPUSCULAR VOLUME 94 fL (80-99); MEAN PLATELET VOLUME 9.4 fL (9.0-12.2); MONOCYTES # (AUTO) 0.6 10^3/uL (0.0-1.0); MONOCYTES % (AUTO) 10 % (0-12); NEUTROPHILS # (AUTO) 4.4 10^3/uL (1.8-7.8); NEUTROPHILS % (AUTO) 72 % (42-75); PLATELET COUNT 219 10^3/uL (130-400); WHITE BLOOD COUNT 6.1 10^3/uL (4.3-11.0)
[2022-01-06 06:19] LABS: ALBUMIN 3.6 GM/DL (3.2-4.5); POTASSIUM 4.2 MMOL/L (3.6-5.0)
[2022-01-06 06:24] LABS: BILIRUBIN,TOTAL 0.2 MG/DL (0.1-1.0)
[2022-01-06 06:25] LABS: CREATININE SERUM 2.01 MG/DL (0.60-1.30)
[2022-01-06 08:11] VITALS: BP 131/69
[2022-01-06] MEDS: SENNOSIDES 8.6 MG (SENOKOT) TAB PO SCH ×2 (09:31→21:57)
[2022-01-06] MEDS: FERROUS SULF 325 MG (IRON) TAB PO SCH (09:31)
[2022-01-06] MEDS: DOCUSATE SODIUM 100 MG (COLACE) CAP PO SCH ×2 (09:31→21:57)
[2022-01-06] MEDS: ISOSORBIDE MONONITRATE 30 MG (IMDUR) TAB PO SCH (09:32)
[2022-01-06] MEDS: QUEtiapine 25 MG (SEROquel) TAB IMMEDIATE RELEASE PO SCH (09:32)
[2022-01-06] MEDS: lisINopril 5 MG (PRINIVIL) TABLET PO SCH (09:33)
[2022-01-06] MEDS: cefTRIAXone 1 GM PRE-MIX 50 ML IV SCH (09:33)
--- NOTE | 2022-01-06 10:29 | Physical Therapy Daily Note ---
PT Daily Note-Current Subjective Patient agrees to PT. Pain Section J - Health Conditions 1. Rarely or not at all 2. Occasionally 3. Frequently 4. Almost constantly 8. Unable to answer Pain Effect on Sleep: 1 Pain Interference with Therapy: 1 Pain Interference w/Day-to-Day: 1 Mental Status Patient Orientation: Normal For Age Transfers SCALE: Activities may be completed with or without assistive devices. 6-Zmcrrjmjwi-ywoltnv completes the activity by him/herself with no assistance from a helper. 5-Set-up or Clean-up Assistance-helper sets up or cleans up; patient completes activity. [place] assists only prior to or following the activity. 4-Supervision or Touching Assistance-helper provides verbal cues and/or touching/steadying and/or contact guard assistance as patient completes activity. Assistance may be provided throughout the activity or intermittently. 3-Partial/Moderate Assistance-helper does LESS THAN HALF the effort. [place] lifts, holds or supports trunk or limbs, but provides less than half the effort. 2-Substantial/Maximal Assistance-helper does MORE THAN HALF the effort. [place] lifts or holds trunk or limbs and provides more than half the effort. 3-Qxbltgoqq-gddnav does ALL the effort. Patient does none of the effort to complete the activity. Or, the assistance of 2 or more helpers is required for the patient to complete the activity. If activity was not attempted, code reason: 7-Patient Refused. 9-Not Applicable-not attempted and the patient did not perform the activity before the current illness, exacerbation or injury. 10-Not Attempted due to Environmental Limitations-(lack of equipment, weather restraints, etc.). 88-Not Attempted due to Medical Conditions or Safety Concerns. Sit to Stand (QC): 6 Gait Training Distance: 500' Walk 10 feet (QC): 6 Walk 50 ft with 2 Turns(QC): 6 Walk 150 ft (QC): 6 Gait Assistive Device: Cane Single Point safe and functional with no deviation Assessment Patient is up with nursing staff PRN. Patient is currently at independent PLOF with all gross motor skills safely and does not require continued skilled PT intervention. PT Stunner Animal Goals Stunner Animal Goals PT Stunner Animal Goals Time Frame: Jan 12, 2022 Roll Left & Right (QC): 6 Sit to Lying (QC): 6 Lying-Sitting on Side/Bed(QC): 6 Sit to Stand (QC): 4 (SBA) Chair/Jnz-gf-Vzhxd Xfer(QC): 4 (SBA) Walk 10 feet (QC): 4 (SBA) Walk 50ft with 2 Turns (QC): 4 (SBA) Walk 150 ft (QC): 4 (SBA) PT Plan Treatment/Plan Treatment Plan: Discontinue PT, goals met Treatment Plan: Bed Mobility, Education, Functional Activity Álvaro, Functional Strength, Gait, Safety, Therapeutic Exercise, Transfers Treatment Duration: Jan 12, 2022 Frequency: 6 times per week Estimated Hrs Per Day: .25 hour per day Patient and/or Family Agrees t: Yes Time/GCodes Time In: 945 Time Out: 955 Total Billed Treatment Time: 10 Total Billed Treatment 1 visit FA 10 min CONOR PEARL PT Jan 06, 2022 10:29
[2022-01-06] MEDS: QUEtiapine 100 MG (SEROquel) TAB IMMEDIATE RELEASE PO SCH ×2 (11:13→21:57)
[2022-01-06 12:17] VITALS: BP 124/68
--- NOTE | 2022-01-06 13:03 | Progress Note ---
RYLANDESTEFANIA 01/06/22 1303: Subjective Date Seen by a Provider: Jan 06, 2022 Time Seen by a Provider: 12:58 Subjective/Events-last exam Pt is sitting comfortably in chair. Has no complaints. Pt had mild increased in BUN and Cr from yesterday but per lifetime summary, pt is still within his normal range (BUN ~ 30 and Cr 1.75-2.2). Continues to have BMs and urine output from urostomy. Pt states that he has been ambulating without issue. Per social services director note, pt's will be discharged to a NH. Pt denies nausea, vomiting, abd pain, CP, and SOA. Review of Systems General: No Chills, No Night Sweats HEENT: No Head Aches, No Visual Changes Pulmonary: No Dyspnea, No Cough Cardiovascular: No: Chest Pain, Palpitations, Orthopnea Gastrointestinal: No: Nausea, Vomiting, Abdominal Pain Genitourinary: No Dysuria, No Frequency Musculoskeletal: No: neck pain, shoulder pain Neurological: No: Weakness, Numbness Objective Exam Last Set of Vital Signs Vital Signs Date Time Temp Pulse Resp B/P (MAP) Pulse Ox O2 Delivery O2 Flow Rate FiO2 01/06/22 12:17 35.8 100 19 124/68 (86) 95 Room Air Capillary Refill : Less Than 3 Seconds I&O Intake and Output 01/06/22 00:00 Intake Total 1480 ml Output Total 2100 ml Balance -620 ml Intake Oral 1480 ml Output Urine Total 2100 ml General: Alert, Cooperative HEENT: PERRLA, Mucous Memb Moist/[place] Neck: Supple, No Thyromegaly, No LAD Lungs: Clear to Auscultation, Normal Air Movement Heart: Regular Rate, No Murmurs, Rubs Abdomen: Soft, No Tenderness, No Hepatosplenomegaly Extremities: No Cyanosis, No Edema Skin: No Rashes, No Significant Lesion Neuro: Normal Speech, Normal Tone Psych/Mental Status: Mental Status NL (Has dementia but normal for pt's baseline), Mood NL Results Lab Laboratory Tests 01/06/22 05:34: White Blood Count 6.1, Red Blood Count 3.71L, Hemoglobin 11.3L, Hematocrit 35L, Mean Corpuscular Volume 94, Mean Corpuscular Hemoglobin 31, Mean Corpuscular Hemoglobin Concent 32, Red Cell Distribution Width 15.0H, Platelet Count 219, Mean Platelet Volume 9.4, Immature Granulocyte % (Auto) 1, Neutrophils (%) (Auto) 72, Lymphocytes (%) (Auto) 13, Monocytes (%) (Auto) 10, Eosinophils (%) (Auto) 4, Basophils (%) (Auto) 1, Neutrophils # (Auto) 4.4, Lymphocytes # (Auto) 0.8L, Monocytes # (Auto) 0.6, Eosinophils # (Auto) 0.3, Basophils # (Auto) 0.0, Immature Granulocyte # (Auto) 0.0, Sodium Level 141, Potassium Level 4.2, Chloride Level 111H, Carbon Dioxide Level 20L, Anion Gap 10, Blood Urea Nitrogen 29H, Creatinine 2.01H, Estimat Glomerular Filtration Rate 32, BUN/Creatinine Ratio 14, Glucose Level 135H, Calcium Level 9.0, Corrected Calcium 9.3, Total Bilirubin 0.2, Aspartate Amino Transf (AST/SGOT) 16, Alanine Aminotransferase (ALT/SGPT) 12, Alkaline Phosphatase 77, Total Protein 7.0, Albumin 3.6 Microbiology 01/04/22 Urine Culture - Preliminary, Resulted Probable Klebsiella/Enterobact Assessment/Plan Assessment/Plan Assess & Plan/Chief Complaint 1. UTI -UA positive for Klebisella/enterobacter, started on IV Cefriaxone Q24H 2. Leukocytosis -continues to improve 3. Dementia -Unsure of pt mentation baseline, but is cooperative in room, friendly, and is able to recognize family in room -Consulted PT/OT 4. Insomnia -pt given melatonin last night, continue prn 5. 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 -continues to have output, urine seems clear and light Continue IV Abx Discharge pending NH placement possibly tomorrow Clinical Quality Measures Admission Status Admission Dx UTI MAXINETIAChaparrita CHRIS 01/07/22 0544: Assessment/Plan Assessment/Plan Assess & Plan/Chief Complaint DC Metformin in setting of CKD Supervisory-Addendum Brief Verification & Attestation Participated in pt care: history, MDM, physical Personally performed: exam, history, MDM, supervision of care Care discussed with: Medical Student Procedures: n/a Results interpretation: Verified all documentation Verification and Attestation of Medical Student E/M Service A medical student performed and documented this service in my presence. I reviewed and verified all information documented by the medical student and made modifications to such information, when appropriate. I personally performed the physical exam and medical decision making. Brianna Quintana, Jan 07, 2022,05:44 ESTEFANIA MARCELINO Jan 06, 2022 13:03 BRIANNA QUINTANA DO Jan 07, 2022 05:44
[2022-01-06 15:30] VITALS: BP 100/60
[2022-01-06 19:18] VITALS: BP 135/70
[2022-01-06] MEDS ORDERED: metFORMIN 500 MG (GLUCOPHAGE) TAB PO SCH (21:00)
[2022-01-06] MEDS: ONDANSETRON 4 MG/2 ML (SDV) Z0FRAN IV PRN (21:05)
[2022-01-06] MEDS: ISOSORBIDE MONONITRATE 60 MG (IMDUR) TAB PO SCH (21:56)
[2022-01-06] MEDS: MELATONIN 10 MG TABLET PO SCH (21:57)
[2022-01-07] VITALS (7 sets, daily range): BP systolic 120–149; BP diastolic 7–87
[2022-01-07] MEDS ORDERED: WATER (STERILE) FOR INJECTION 20 ML ONE (00:04)
[2022-01-07] MEDS: WATER (STERILE) FOR INJ 10 ML BTL INJ SCH ×2 (00:12→23:44)
[2022-01-07] MEDS: ZIPRASIDONE 20 MG INJ (GEODON) VIAL IM PRN ×2 (00:12→23:43)
[2022-01-07 06:14] LABS: BASOPHILS % (AUTO) 1 % (0-10); EOSINOPHILS # (AUTO) 0.4 10^3/uL (0.0-0.3); EOSINOPHILS % (AUTO) 6 % (0-10); HEMATOCRIT 36 % (40-54); HEMOGLOBIN 11.3 g/dL (13.3-17.7); LYMPHOCYTES # (AUTO) 1.2 10^3/uL (1.0-4.0); LYMPHOCYTES % (AUTO) 20 % (12-44); MEAN CORPUSCULAR HEMOGLOBIN 30 pg (25-34); MEAN CORPUSCULAR HGB CONC 32 g/dL (32-36); MEAN CORPUSCULAR VOLUME 96 fL (80-99); MEAN PLATELET VOLUME 9.6 fL (9.0-12.2); MONOCYTES # (AUTO) 0.6 10^3/uL (0.0-1.0); MONOCYTES % (AUTO) 11 % (0-12); NEUTROPHILS # (AUTO) 3.7 10^3/uL (1.8-7.8); NEUTROPHILS % (AUTO) 62 % (42-75); PLATELET COUNT 218 10^3/uL (130-400); WHITE BLOOD COUNT 5.9 10^3/uL (4.3-11.0)
[2022-01-07 06:26] LABS: ALBUMIN 3.7 GM/DL (3.2-4.5); POTASSIUM 4.4 MMOL/L (3.6-5.0)
[2022-01-07 06:27] LABS: CALCIUM 8.9 MG/DL (8.5-10.1)
[2022-01-07 06:29] LABS: TOTAL PROTEIN 7.2 GM/DL (6.4-8.2)
[2022-01-07 06:31] LABS: BILIRUBIN,TOTAL 0.2 MG/DL (0.1-1.0)
[2022-01-07 06:32] LABS: CREATININE SERUM 2.71 MG/DL (0.60-1.30)
[2022-01-07] MEDS: PRAMIPEXOLE 0.5 MG TAB (MIRAPEX) PO SCH ×3 (06:49→19:41)
[2022-01-07] MEDS: PANTOPRAZOLE 40 MG (PROTONIX) TAB PO SCH (06:49)
[2022-01-07] MEDS: LEVOTHYROXINE 50 MCG (LEVOTHROID) TAB PO SCH (06:50)
[2022-01-07] MEDS: SENNOSIDES 8.6 MG (SENOKOT) TAB PO SCH ×2 (08:36→19:42)
[2022-01-07] MEDS: ISOSORBIDE MONONITRATE 30 MG (IMDUR) TAB PO SCH (08:36)
[2022-01-07] MEDS: DOCUSATE SODIUM 100 MG (COLACE) CAP PO SCH ×2 (08:37→19:42)
[2022-01-07] MEDS: FERROUS SULF 325 MG (IRON) TAB PO SCH (08:37)
[2022-01-07] MEDS: QUEtiapine 25 MG (SEROquel) TAB IMMEDIATE RELEASE PO SCH (08:37)
[2022-01-07] MEDS: lisINopril 5 MG (PRINIVIL) TABLET PO SCH (08:37)
[2022-01-07] MEDS: cefTRIAXone 1 GM PRE-MIX 50 ML IV SCH (08:45)
[2022-01-07] MEDS: ACETAMINOPHEN 325 MG TABLET PO PRN ×2 (10:30→14:31)
[2022-01-07] MEDS: QUEtiapine 100 MG (SEROquel) TAB IMMEDIATE RELEASE PO SCH ×2 (12:05→19:42)
[2022-01-07] MEDS ORDERED: LISI2.5T13 PO (12:16)
[2022-01-07] MEDS ORDERED: ISOS60TA63 PO (12:16)
[2022-01-07] MEDS ORDERED: RT-ALBUINH INH (12:16)
[2022-01-07] MEDS ORDERED: PRAM1TAB2 PO (12:16)
[2022-01-07] MEDS ORDERED: ACET325C7 PO (12:16)
[2022-01-07] MEDS ORDERED: CLN.1T PO (12:16)
[2022-01-07] MEDS ORDERED: POTA99TA18 PO (12:16)
[2022-01-07] MEDS ORDERED: ACET-2650 PO (12:16)
[2022-01-07] MEDS ORDERED: FLUT9.9S NS (12:16)
[2022-01-07] MEDS ORDERED: ISOS30TA82 PO (12:16)
[2022-01-07] MEDS ORDERED: QUET25TA35 PO (12:16)
[2022-01-07] MEDS ORDERED: MELA10TA2 PO (12:16)
[2022-01-07] MEDS ORDERED: HEPA500018 SC (12:16)
[2022-01-07] MEDS ORDERED: LEVO50TA6 PO (12:16)
[2022-01-07] MEDS ORDERED: OMEP40CA6 PO (12:16)
[2022-01-07] MEDS ORDERED: LORA-404 PO (12:16)
[2022-01-07] MEDS ORDERED: FERR-84 PO (12:16)
[2022-01-07] MEDS ORDERED: ATOR80TA76 PO (12:16)
[2022-01-07] MEDS ORDERED: DILT30TA PO (12:16)
[2022-01-07] MEDS ORDERED: SNN187T PO (12:16)
[2022-01-07] MEDS ORDERED: PRAM1TAB5 PO (12:16)
[2022-01-07] MEDS ORDERED: CRAN500T4 PO (12:16)
[2022-01-07] MEDS ORDERED: CYCL5TAB PO (12:16)
[2022-01-07] MEDS ORDERED: DEXT1TAB5 PO (12:16)
[2022-01-07] MEDS ORDERED: FURO40TA4 PO (12:16)
[2022-01-07] MEDS ORDERED: QUET100T33 PO ×2 (12:16)
--- NOTE | 2022-01-07 12:19 | Discharge Inst-Skilled Nursing ---
Discharge Inst-Skilled NF Reconcile Patient Problems Problems Reviewed?: Yes Patient Instructions Patient Problems: Debility CKD Dementia Consult/Follow Up/Orders Follow Up Appt.: PCP MA rounds Skilled NF Admit to: [facility] (SNF) I certify that SNF services are required to be given on an inpatient basis because of the above named patient's need for [place] [facility] care on a continuing basis for the conditions(s) for which he/she was receiving inpatient hospital services prior to his/her transfer to the SNF. Nursing Home Facility Order: Nursing Services, Programming Equipment Operator-Evaluate & Treat, Physical Therapy-Evaluate & Treat, Speech Language-Evaluate & Treat Oxygen Delivery Method: Room Air New & Resume Previous Orders New Medications: Acetaminophen (Tylenol Arthritis) 650 Mg Tablet.er 1300 MG PO TID, #90 TAB Lorazepam (Ativan) 0.5 Mg Tablet 0.5 MG PO BID PRN for ANXIETY, #15 TAB Clonidine HCl (Clonidine HCl) 0.1 Mg Tablet 0.1 MG PO Q4HR PRN for SBP>170, #10 TAB Heparin Sodium,Porcine (Heparin Sodium) 5,000 Unit/Ml Vial 5000 UNITS SC Q8H, #21 VIAL Sennosides (Senna Lax) 8.6 Mg Tablet 8.6 MG PO BID, #30 TAB Changed Medications: Dextromethorphan HBr/Chlor-Mal (Coricidin Hbp Cough & Cold Tab) 4 Mg-30 Mg Tablet 1 EACH PO HS, #30 TAB (Changed from: Dextromethorphan HBr/Chlor-Mal (Coricidin Hbp Cough & Cold Tab) 1 Each Tablet 1 Each PO HS) Ferrous Sulfate (Iron) 325 Mg (65 Mg Iron) Tablet 325 MG PO DAILY, #30 TAB (Changed from: Ferrous Sulfate (Iron) 325 Mg Tablet 325 Mg PO DAILY) Pramipexole Di-HCl (Mirapex) 1 Mg Tablet 1.5 MG PO HS, #45 TAB (Changed from: Removed Instructions) Pramipexole Di-HCl (Pramipexole Dihydrochloride) 1 Mg Tablet 0.5 MG PO 0700,1200, #30 TAB (Changed from: Removed Instructions) Continued Medications: Acetaminophen (Tylenol) 325 Mg Capsule 650 MG PO BID PRN for PAIN-MILD (1-4), #30 CAP (This prescription has been renewed) Albuterol Sulfate (Ventolin Hfa) 1 Puff Puff 2 PUFF INH BID PRN for SHORTNESS OF BREATH, #1 EA (This prescription has been renewed) Atorvastatin Calcium (Atorvastatin Calcium) 80 Mg Tablet 80 MG PO HS, #30 TAB (This prescription has been renewed) Cranberry Extract (Cranberry) 500 Mg Tablet 500 MG PO DAILY, #30 TAB (This prescription has been renewed) Cyclobenzaprine HCl (Cyclobenzaprine HCl) 5 Mg Tablet 5 MG PO BID PRN for MUSCLE SPASMS, #60 TAB (This prescription has been renewed) Diltiazem HCl (Diltiazem HCl) 30 Mg Tablet 30 MG PO DAILY, #30 TAB (This prescription has been renewed) Fluticasone Propionate (Flonase Allergy Relief) 50 Mcg/Actuation [place].susp 1 SPRAY NS BID PRN for CONGESTION, #10 EACH (This prescription has been renewed) Furosemide (Furosemide) 40 Mg Tablet 40 MG PO DAILY PRN for FLUID RETENTION, #15 TAB (This prescription has been r enewed) Isosorbide Mononitrate (Isosorbide Mononitrate ER) 30 Mg Tab.er.24h 30 MG PO DAILY, #30 TAB (This prescription has been renewed) Isosorbide Mononitrate (Isosorbide Mononitrate ER) 60 Mg Tab 60 MG PO HS, #30 TAB (This prescription has been renewed) Levothyroxine Sodium (Levothyroxine Sodium) 50 Mcg Tablet 50 MCG PO DAILY, #30 TAB (This prescription has been renewed) Lisinopril (Lisinopril) 2.5 Mg Tablet 2.5 MG PO DAILY, #30 TAB (This prescription has been renewed) Melatonin (Melatonin) 10 Mg Tablet 10 MG PO HS, #30 TAB (This prescription has been renewed) Omeprazole (Omeprazole) 40 Mg Capsule.dr 40 MG PO DAILY, #30 CAP (This prescription has been renewed) Potassium Gluconate (Potassium Gluconate) 595 Mg (99 Mg) Tablet.er 99 MG PO DAILY PRN for WHEN TAKING FUROSEMIDE, #15 TAB (This prescription has been renewed) Quetiapine Fumarate (Quetiapine Fumarate) 100 Mg Tablet 100 MG PO 1200, #30 TAB (This prescription has been renewed) Quetiapine Fumarate (Quetiapine Fumarate) 25 Mg Tablet 75 MG PO DAILY, #90 TAB (This prescription has been renewed) TAKES 3 (25MG) TABS Quetiapine Fumarate (Quetiapine Fumarate) 100 Mg Tablet 200 MG PO HS, #30 TAB (This prescription has been renewed) TAKES 2 (100MG) TABS Discontinued Medications: Metformin HCl (Metformin HCl) 500 Mg Tablet 500 MG PO HS, TAB Brianna Quintana Jan 07, 2022 12:17 BRIANNA QUINTANA DO Jan 07, 2022 12:19
--- NOTE | 2022-01-07 12:20 | Discharge Summary ---
Diagnosis/Chief Complaint Date of Admission Jan 04, 2022 at 15:25 Date of Discharge Discharge Date: Jan 07, 2022 Discharge Summary Discharge Physical Examination Allergies: Coded Allergies: NKANo Known Allergies (Verified Allergy, Mild, 11/24/11) Uncoded Allergies: BEE STINGS (Allergy, Severe, SOA/HIVES, 11/01/10) Vitals & I&Os Vital Signs Date Time Temp Pulse Resp B/P (MAP) Pulse Ox O2 Delivery O2 Flow Rate FiO2 01/07/22 19:45 Room Air 01/07/22 19:43 36.7 88 18 121/87 (98) 93 Hospital Course Labs (last 24 hrs) Laboratory Tests 01/04/22 12:21: White Blood Count 7.0, Red Blood Count 3.81L, Hemoglobin 11.7L, Hematocrit 37L, Mean Corpuscular Volume 97, Mean Corpuscular Hemoglobin 31, Mean Corpuscular Hemoglobin Concent 32, Red Cell Distribution Width 15.2H, Platelet Count 219, Mean Platelet Volume 8.9L, Immature Granulocyte % (Auto) 0, Neutrophils (%) (Auto) 78H, Lymphocytes (%) (Auto) 11L, Monocytes (%) (Auto) 7, Eosinophils (%) (Auto) 3, Basophils (%) (Auto) 0, Neutrophils # (Auto) 5.5, Lymphocytes # (Auto) 0.8L, Monocytes # (Auto) 0.5, Eosinophils # (Auto) 0.2, Basophils # (Auto) 0.0, Immature Granulocyte # (Auto) 0.0, Sodium Level 138, Potassium Level 4.8, Chloride Level 108H, Carbon Dioxide Level 20L, Anion Gap 10, Blood Urea Nitrogen 30H, Creatinine 2.17H, Estimat Glomerular Filtration Rate 29, BUN/Creatinine Ratio 14, Glucose Level 116H, Calcium Level 9.1, Corrected Calcium 9.0, Total B ilirubin 0.3, Aspartate Amino Transf (AST/SGOT) 19, Alanine Aminotransferase (ALT/SGPT) 17, Alkaline Phosphatase 88, Total Protein 7.5, Albumin 4.1, Thyroid Stimulating Hormone (TSH) 2.21 01/04/22 12:57: Urine Color YELLOW, Urine Clarity CLEAR, Urine pH 5.0, Urine Specific [place] 1.020, Urine Protein TRACEH, Urine Glucose (UA) NEGATIVE, Urine Ketones NEGATIVE, Urine Nitrite POSITIVEH, Urine Bilirubin NEGATIVE, Urine Urobilinogen 0.2, Urine Leukocyte Esterase 1+H, Urine RBC (Auto) TRACE-IH, Urine RBC 0-2, Urine WBC 50-100H, Urine Squamous Epithelial Cells NONE, Urine Crystals NONE, Urine Bacteria LARGEH, Urine Casts NONE, Urine Mucus NEGATIVE, Urine Culture Indicated YES, Urine Opiates Screen NEGATIVE, Urine Oxycodone Screen NEGATIVE, Urine Methadone Screen NEGATIVE, Urine Propoxyphene Screen NEGATIVE, Urine Barbiturates Screen NEGATIVE, Ur Tricyclic Antidepressants Screen POSITIVEH, Urine Phencyclidine Screen NEGATIVE, Urine Amphetamines Screen NEGATIVE, Urine Methamphetamines Screen NEGATIVE, Urine Benzodiazepines Screen NEGATIVE, Urine Cocaine Screen NEGATIVE, Urine Cannabinoids Screen NEGATIVE 01/05/22 05:37: White Blood Count 7.1, Red Blood Count 4.05L, Hemoglobin 12.6L, Hematocrit 38L, Mean Corpuscular Volume 95, Mean Corpuscular Hemoglobin 31, Mean Corpuscular Hemoglobin Concent 33, Red Cell Distribution Width 15.0H, Platelet Count 240, Mean Platelet Volume 9.4, Immature Granulocyte % (Auto) 0, Neutrophils (%) (Auto) 78H, Lymphocytes (%) (Auto) 10L, Monocytes (%) (Auto) 7, Eosinophils (%) (Auto) 4, Basophils (%) (Auto) 0, Neutrophils # (Auto) 5.6, Lymphocytes # (Auto) 0.7L, Monocytes # (Auto) 0.5, Eosinophils # (Auto) 0.3, Basophils # (Auto) 0.0, Immature Granulocyte # (Auto) 0.0, Sodium Level 139, Potassium Level 4.7, Chloride Level 109H, Carbon Dioxide Level 16L, Anion Gap 14, Blood Urea Nitrogen 23H, Creatinine 1.75H, Estimat Glomerular Filtration Rate 37, BUN/Creatinine Ratio 13, Glucose Level 127H, Calcium Level 9.3, Corrected Calcium 9.4, Total Bilirubin 0.2, Aspartate Amino Transf (AST/SGOT) 17, Alanine Aminotransferase (ALT/SGPT) 16, Alkaline Phosphatase 84, Total Protein 7.6, Albumin 3.9 01/06/22 05:34: White Blood Count 6.1, Red Blood Count 3.71L, Hemoglobin 11.3L, Hematocrit 35L, Mean Corpuscular Volume 94, Mean Corpuscular Hemoglobin 31, Mean Corpuscular Hemoglobin Concent 32, Red Cell Distribution Width 15.0H, Platelet Count 219, Mean Platelet Volume 9.4, Immature Granulocyte % (Auto) 1, Neutrophils (%) (Auto) 72, Lymphocytes (%) (Auto) 13, Monocytes (%) (Auto) 10, Eosinophils (%) (Auto) 4, Basophils (%) (Auto) 1, Neutrophils # (Auto) 4.4, Lymphocytes # (Auto) 0.8L, Monocytes # (Auto) 0.6, Eosinophils # (Auto) 0.3, Basophils # (Auto) 0.0, Immature Granulocyte # (Auto) 0.0, Sodium Level 141, Potassium Level 4.2, Chloride Level 111H, Carbon Dioxide Level 20L, Anion Gap 10, Blood Urea Nitrogen 29H, Creatinine 2.01H, Estimat Glomerular Filtration Rate 32, BUN/Creatinine Ratio 14, Glucose Level 135H, Calcium Level 9.0, Corrected Calcium 9.3, Total Bilirubin 0.2, Aspartate Amino Transf (AST/SGOT) 16, Alanine Aminotransferase (ALT/SGPT) 12, Alkaline Phosphatase 77, Total Protein 7.0, Albumin 3.6 01/07/22 05:25: White Blood Count 5.9, Red Blood Count 3.73L, Hemoglobin 11.3L, Hematocrit 36L, Mean Corpuscular Volume 96, Mean Corpuscular Hemoglobin 30, Mean Corpuscular Hemoglobin Concent 32, Red Cell Distribution Width 15.2H, Platelet Count 218, Mean Platelet Volume 9.6, Immature Granulocyte % (Auto) 1, Neutrophils (%) (Auto) 62, Lymphocytes (%) (Auto) 20, Monocytes (%) (Auto) 11, Eosinophils (%) (Auto) 6, Basophils (%) (Auto) 1, Neutrophils # (Auto) 3.7, Lymphocytes # (Auto) 1.2, Monocytes # (Auto) 0.6, Eosinophils # (Auto) 0.4H, Basophils # (Auto) 0.0, Immature Granulocyte # (Auto) 0.0, Sodium Level 141, Potassium Level 4.4, Chloride Level 110H, Carbon Dioxide Level 19L, Anion Gap 12, Blood Urea Nitrogen 34H, Creatinine 2.71#H, Estimat Glomerular Filtration Rate 22, BUN/Creatinine Ratio 13, Glucose Level 101, Calcium Level 8.9, Corrected Calcium 9.1, Total Bilirubin 0.2, Aspartate Amino Transf (AST/SGOT) 14, Alanine Aminotransferase (ALT/SGPT) 12, Alkaline Phosphatase 76, Total Protein 7.2, Albumin 3.7 Microbiology 01/04/22 Urine Culture - Final, Complete Klebsiella oxytoca Klebsiella oxytoca#2 Mixed Bacterial Gisela Pending Labs Microbiology Date/Time Source Procedure Growth Status 01/04/22 12:57 Urine Clean Catch Urine Culture - Final Klebsiella oxytoca Klebsiella oxytoca#2 Mixed Bacterial Gisela Complete Laboratory Tests 01/04/22 12:21: White Blood Count 7.0, Red Blood Count 3.81, Hemoglobin 11.7, Hematocrit 37, Mean Corpuscular Volume 97, Mean Corpuscular Hemoglobin 31, Mean Corpuscular Hemoglobin Concent 32, Red Cell Distribution Width 15.2, Platelet Count 219, Mean Platelet Volume 8.9, Immature Granulocyte % (Auto) 0, Neutrophils (%) (Auto) 78, Lymphocytes (%) (Auto) 11, Monocytes (%) (Auto) 7, Eosinophils (%) (Auto) 3, Basophils (%) (Auto) 0, Neutrophils # (Auto) 5.5, Lymphocytes # (Auto) 0.8, Monocytes # (Auto) 0.5, Eosinophils # (Auto) 0.2, Basophils # (Auto) 0.0, Immature Granulocyte # (Auto) 0.0, Sodium Level 138, Potassium Level 4.8, Chloride Level 108, Carbon Dioxide Level 20, Anion Gap 10, Blood Urea Nitrogen 30, Creatinine 2.17, Estimat Glomerular Filtration Rate 29, BUN/Creatinine Ratio 14, Glucose Level 116, Calcium Level 9.1, Corrected Calcium 9.0, Total Bilirubin 0.3, Aspartate Amino Transf (AST/SGOT) 19, Alanine Aminotransferase (ALT/SGPT) 17, Alkaline Phosphatase 88, Total Protein 7.5, Albumin 4.1, Thyroid Stimulating Hormone (TSH) 2.21 01/04/22 12:57: Urine Color YELLOW, Urine Clarity CLEAR, Urine pH 5.0, Urine Specific [place] 1.020, Urine Protein TRACE, Urine Glucose (UA) NEGATIVE, Urine Ketones NEGATIVE, Urine Nitrite POSITIVE, Urine Bilirubin NEGATIVE, Urine Urobilinogen 0.2, Urine Leukocyte Esterase 1+, Urine RBC (Auto) TRACE-I, Urine RBC 0-2, Urine WBC 50- 100, Urine Squamous Epithelial Cells NONE, Urine Crystals NONE, Urine Bacteria LARGE, Urine Casts NONE, Urine Mucus NEGATIVE, Urine Culture Indicated YES, Urine Opiates Screen NEGATIVE, Urine Oxycodone Screen NEGATIVE, Urine Methadone Screen NEGATIVE, Urine Propoxyphene Screen NEGATIVE, Urine Barbiturates Screen NEGATIVE, Ur Tricyclic Antidepressants Screen POSITIVE, Urine Phencyclidine Screen NEGATIVE, Urine Amphetamines Screen NEGATIVE, Urine Methamphetamines Screen NEGATIVE, Urine Benzodiazepines Screen NEGATIVE, Urine Cocaine Screen NEGATIVE, Urine Cannabinoids Screen NEGATIVE 01/05/22 05:37: White Blood Count 7.1, Red Blood Count 4.05, Hemoglobin 12.6, Hematocrit 38, Mean Corpuscular Volume 95, Mean Corpuscular Hemoglobin 31, Mean Corpuscular Hemoglobin Concent 33, Red Cell Distribution Width 15.0, Platelet Count 240, Mean Platelet Volume 9.4, Immature Granulocyte % (Auto) 0, Neutrophils (%) (Auto) 78, Lymphocytes (%) (Auto) 10, Monocytes (%) (Auto) 7, Eosinophils (%) (Auto) 4, Basophils (%) (Auto) 0, Neutrophils # (Auto) 5.6, Lymphocytes # (Auto) 0.7, Monocytes # (Auto) 0.5, Eosinophils # (Auto) 0.3, Basophils # (Auto) 0.0, Immature Granulocyte # (Auto) 0.0, Sodium Level 139, Potassium Level 4.7, Chloride Level 109, Carbon Dioxide Level 16, Anion Gap 14, Blood Urea Nitrogen 23, Creatinine 1.75, Estimat Glomerular Filtration Rate 37, BUN/Creatinine Ratio 13, Glucose Level 127, Calcium Level 9.3, Corrected Calcium 9.4, Total Bilirubin 0.2, Aspartate Amino Transf (AST/SGOT) 17, Alanine Aminotransferase (ALT/SGPT) 16, Alkaline Phosphatase 84, Total Protein 7.6, Albumin 3.9 01/06/22 05:34: White Blood Count 6.1, Red Blood Count 3.71, Hemoglobin 11.3, Hematocrit 35, Mean Corpuscular Volume 94, Mean Corpuscular Hemoglobin 31, Mean Corpuscular Hemoglobin Concent 32, Red Cell Distribution Width 15.0, Platelet Count 219, Mean Platelet Volume 9.4, Immature Granulocyte % (Auto) 1, Neutrophils (%) (Auto) 72, Lymphocytes (%) (Auto) 13, Monocytes (%) (Auto) 10, Eosinophils (%) (Auto) 4, Basophils (%) (Auto) 1, Neutrophils # (Auto) 4.4, Lymphocytes # (Auto) 0.8, Monocytes # (Auto) 0.6, Eosinophils # (Auto) 0.3, Basophils # (Auto) 0.0, Immature Granulocyte # (Auto) 0.0, Sodium Level 141, Potassium Level 4.2, Chloride Level 111, Carbon Dioxide Level 20, Anion Gap 10, Blood Urea Nitrogen 29, Creatinine 2.01, Estimat Glomerular Filtration Rate 32, BUN/Creatinine Ratio 14, Glucose Level 135, Calcium Level 9.0, Corrected Calcium 9.3, Total Bilirubin 0.2, Aspartate Amino Transf (AST/SGOT) 16, Alanine Aminotransferase (ALT/SGPT) 12, Alkaline Phosphatase 77, Total Protein 7.0, Albumin 3.6 01/07/22 05:25: White Blood Count 5.9, Red Blood Count 3.73, Hemoglobin 11.3, Hematocrit 36, Mean Corpuscular Volume 96, Mean Corpuscular Hemoglobin 30, Mean Corpuscular Hemoglobin Concent 32, Red Cell Distribution Width 15.2, Platelet Count 218, Mean Platelet Volume 9.6, Immature Granulocyte % (Auto) 1, Neutrophils (%) (Auto) 62, Lymphocytes (%) (Auto) 20, Monocytes (%) (Auto) 11, Eosinophils (%) (Auto) 6, Basophils (%) (Auto) 1, Neutrophils # (Auto) 3.7, Lymphocytes # (Auto) 1.2, Monocytes # (Auto) 0.6, Eosinophils # (Auto) 0.4, Basophils # (Auto) 0.0, Immature Granulocyte # (Auto) 0.0, Sodium Level 141, Potassium Level 4.4, Chloride Level 110, Carbon Dioxide Level 19, Anion Gap 12, Blood Urea Nitrogen 34, Creatinine 2.71, Estimat Glomerular Filtration Rate 22, BUN/Creatinine Ratio 13, Glucose Level 101, Calcium Level 8.9, Corrected Calcium 9.1, Total Bilirubin 0.2, Aspartate Amino Transf (AST/SGOT) 14, Alanine Aminotransferase (ALT/SGPT) 12, Alkaline Phosphatase 76, Total Protein 7.2, Albumin 3.7 Discharge Home Medications: Active Scripts Active Ativan (Lorazepam) 0.5 Mg Tablet 0.5 Mg PO BID PRN Tylenol Arthritis (Acetaminophen) 650 Mg Tablet.er 1,300 Mg PO TID Senna Lax (Sennosides) 8.6 Mg Tablet 8.6 Mg PO BID Clonidine HCl 0.1 Mg Tablet 0.1 Mg PO Q4HR PRN Heparin Sodium (Heparin Sodium,Porcine) 5,000 Unit/Ml Vial 5,000 Units SC Q8H Cyclobenzaprine HCl 5 Mg Tablet 5 Mg PO BID PRN Potassium Gluconate 595 Mg (99 Mg) Tablet.er 99 Mg PO DAILY PRN Furosemide 40 Mg Tablet 40 Mg PO DAILY PRN Melatonin 10 Mg Tablet 10 Mg PO HS Atorvastatin Calcium 80 Mg Tablet 80 Mg PO HS Pramipexole Dihydrochloride (Pramipexole Di-HCl) 1 Mg Tablet 0.5 Mg PO 0700,1200 Lisinopril 2.5 Mg Tablet 2.5 Mg PO DAILY Quetiapine Fumarate 100 Mg Tablet 200 Mg PO HS TAKES 2 (100MG) TABS Quetiapine Fumarate 25 Mg Tablet 75 Mg PO DAILY TAKES 3 (25MG) TABS Quetiapine Fumarate 100 Mg Tablet 100 Mg PO 1200 Cranberry (Cranberry Extract) 500 Mg Tablet 500 Mg PO DAILY Flonase Allergy Relief (Fluticasone Propionate) 50 Mcg/Actuation [place].susp 1 [place] NS BID PRN Ventolin Hfa (Albuterol Sulfate) 1 Puff Puff 2 Puff INH BID PRN Coricidin Hbp Cough & Cold Tab (Dextromethorphan HBr/Chlor-Mal) 4 Mg-30 Mg Tablet 1 Each PO HS Iron (Ferrous Sulfate) 325 Mg (65 Mg Iron) Tablet 325 Mg PO DAILY Diltiazem HCl 30 Mg Tablet 30 Mg PO DAILY Mirapex (Pramipexole Di-HCl) 1 Mg Tablet 1.5 Mg PO HS Isosorbide Mononitrate ER (Isosorbide Mononitrate) 60 Mg Tab 60 Mg PO HS Isosorbide Mononitrate ER (Isosorbide Mononitrate) 30 Mg Tab.er.24h 30 Mg PO DAILY Omeprazole 40 Mg Capsule.dr 40 Mg PO DAILY Tylenol (Acetaminophen) 325 Mg Capsule 650 Mg PO BID PRN Levothyroxine Sodium 50 Mcg Tablet 50 Mcg PO DAILY Reported Metformin HCl 500 Mg Tablet 500 Mg PO HS Instructions to patient/family Please see electronic discharge instructions given to patient. HERMINIO GOODMAN DO Jan 07, 2022 12:20
--- NOTE | 2022-01-07 13:18 | Progress Note ---
BETOWALTERESTEFANIA Cannon 01/07/22 1318: Subjective Date Seen by a Provider: Jan 07, 2022 Time Seen by a Provider: 13:02 Subjective/Events-last exam Pt is resting comfortably in bed. Pt states that he feels good. Per , pt was ambulating well last night. Pt has been tolerating diet well and continues to have BMs and output via urostomy. Pt notes some generalized joint pain from arthritis and asked for his Tylenol dosing to be changed from prn to his home dosing schedule. Otherwise pt has no complaints. Pt's BUN and Cr were elevated to 34 and 2.71 today. Metformin was DC d/t CKD. Pt denies CP, nausea, vomiting, SOB, diarrhea, and sweats. Hospital Course: 86yo M with h/o vascular dementia, bladder and renal cancer with urostomy was admitted following presentation to the ED yesterday for increased confusion and REESE. Per ED note, pt has experienced worsening dementia and yesterday, pt "wandered off" from home. Pt was found by a neighbor and placed into DCF custody. This prompted the to bring the pt to the ED for evaluation d/t increasingly altered behavior. Workup was unremarkable except for a positive UA for klebisella/ enterobacter. Pt was given a dose of Rocephin and then admitted to the floor. Since being admitted, pt's mentation has improved but is only oriented to self which seems to be baseline. Pt has had no issues with BMs or urostomy output since being admitted and tolerated his diet well. Pt has been able to ambulate with walker without issue. Today, pt's BUN and Cr were elevated. Pt was on metformin but was DC due to CKD. Pt continues to have no complaints. Per , pt is expected to be discharged to [facility] in [place] pending insurance approval. Review of Systems General: No Chills, No Night Sweats HEENT: No Head Aches, No Visual Changes Pulmonary: No Dyspnea, No Cough Cardiovascular: No: Chest Pain, Palpitations Gastrointestinal: No: Nausea, Vomiting, Abdominal Pain Genitourinary: No Dysuria, No Frequency Musculoskeletal: No: neck pain, shoulder pain Neurological: No: Weakness, Numbness Objective Exam Last Set of Vital Signs Vital Signs Date Time Temp Pulse Resp B/P (MAP) Pulse Ox O2 Delivery O2 Flow Rate FiO2 01/07/22 11:51 36.5 82 18 133/73 (93) 95 Room Air Capillary Refill : Less Than 3 Seconds I&O Intake and Output 01/07/22 00:00 Intake Total 1490 ml Output Total 900 ml Balance 590 ml Intake Oral 1440 ml IV Total 50 ml Output Urine Total 900 ml # Bowel Movements 1 General: Alert, Cooperative, No Acute Distress HEENT: PERRLA, Mucous Memb Moist/[place] Neck: Supple, No Thyromegaly Lungs: Clear to Auscultation, Normal Air Movement Heart: Regular Rate, No Murmurs, Rubs Abdomen: Soft, No Tenderness, Other (urostomy on R abd ) Extremities: No Cyanosis, No Edema Skin: No Rashes, No Significant Lesion Neuro: Normal Speech, Normal Tone Psych/Mental Status: Mental Status NL (H/o dementia, only oriented to self baseline ), Mood NL Results Lab Laboratory Tests 01/07/22 05:25: White Blood Count 5.9, Red Blood Count 3.73L, Hemoglobin 11.3L, Hematocrit 36L, Mean Corpuscular Volume 96, Mean Corpuscular Hemoglobin 30, Mean Corpuscular Hemoglobin Concent 32, Red Cell Distribution Width 15.2H, Platelet Count 218, Mean Platelet Volume 9.6, Immature Granulocyte % (Auto) 1, Neutrophils (%) (Auto) 62, Lymphocytes (%) (Auto) 20, Monocytes (%) (Auto) 11, Eosinophils (%) (Auto) 6, Basophils (%) (Auto) 1, Neutrophils # (Auto) 3.7, Lymphocytes # (Auto) 1.2, Monocytes # (Auto) 0.6, Eosinophils # (Auto) 0.4H, Basophils # (Auto) 0.0, Immature Granulocyte # (Auto) 0.0, Sodium Level 141, Potassium Level 4.4, Chloride Level 110H, Carbon Dioxide Level 19L, Anion Gap 12, Blood Urea Nitrogen 34H, Creatinine 2.71#H, Estimat Glomerular Filtration Rate 22, BUN/Creatinine Ratio 13, Glucose Level 101, Calcium Level 8.9, Corrected Calcium 9.1, Total Bilirubin 0.2, Aspartate Amino Transf (AST/SGOT) 14, Alanine Aminotransferase (ALT/SGPT) 12, Alkaline Phosphatase 76, Total Protein 7.2, Albumin 3.7 Microbiology 01/04/22 Urine Culture - Preliminary, Resulted Klebsiella oxytoca Mixed Bacterial Gisela Assessment/Plan Assessment/Plan Assess & Plan/Chief Complaint 1. UTI -UA positive for Klebisella/enterobacter, started on IV Cefriaxone Q24H 2. Leukocytosis -continues to improve 3. Dementia -Oriented to self baseline -PT/OT 4. Insomnia -melatonin prn 5. 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 -continues to have output, urine seems clear and light Plan: Continue IV Abx Discharge to [facility] today Clinical Quality Measures Admission Status Admission Dx UTI BRIANNA GOODMAN DO 01/07/222133: Subjective Subjective/Events-last exam Awaiting NHP Monitoring closely Objective Exam General: Alert, Cooperative Lungs: Clear to Auscultation Heart: Regular Rate Psych/Mental Status: Mental Status NL (H/o dementia, only oriented to self baseline ) Supervisory-Addendum Brief Verification & Attestation Participated in pt care: history, MDM, physical Personally performed: exam, history, MDM, supervision of care Care discussed with: Medical Student Procedures: n/a Results interpretation: Verified all documentation Verification and Attestation of Medical Student E/M Service A medical student performed and documented this service in my presence. I reviewed and verified all information documented by the medical student and made modifications to such information, when appropriate. I personally performed the physical exam and medical decision making. Brianna Goodman, Jan 07, 2022,21:33 ESTFEANIA MARCELINO Jan 07, 2022 13:18 BRIANNA GOODMAN DO Jan 07, 2022 21:34
[2022-01-07] MEDS: MELATONIN 10 MG TABLET PO SCH (19:42)
[2022-01-07] MEDS: ISOSORBIDE MONONITRATE 60 MG (IMDUR) TAB PO SCH (19:42)
[2022-01-08] MEDS: LORazepam 0.5 MG (ATIVAN) TABLET PO PRN ×2 (03:17→19:42)
[2022-01-08 03:50] VITALS: BP 115/67
[2022-01-08 05:09] LABS: BASOPHILS % (AUTO) 1 % (0-10); EOSINOPHILS # (AUTO) 0.3 10^3/uL (0.0-0.3); EOSINOPHILS % (AUTO) 6 % (0-10); HEMATOCRIT 33 % (40-54); HEMOGLOBIN 10.7 g/dL (13.3-17.7); LYMPHOCYTES # (AUTO) 0.8 10^3/uL (1.0-4.0); LYMPHOCYTES % (AUTO) 16 % (12-44); MEAN CORPUSCULAR HEMOGLOBIN 31 pg (25-34); MEAN CORPUSCULAR HGB CONC 32 g/dL (32-36); MEAN CORPUSCULAR VOLUME 95 fL (80-99); MEAN PLATELET VOLUME 9.4 fL (9.0-12.2); MONOCYTES # (AUTO) 0.5 10^3/uL (0.0-1.0); MONOCYTES % (AUTO) 10 % (0-12); NEUTROPHILS # (AUTO) 3.3 10^3/uL (1.8-7.8); NEUTROPHILS % (AUTO) 67 % (42-75); PLATELET COUNT 217 10^3/uL (130-400)
[2022-01-08 05:27] LABS: ALBUMIN 3.5 GM/DL (3.2-4.5)
[2022-01-08 05:29] LABS: CALCIUM 8.8 MG/DL (8.5-10.1)
[2022-01-08 05:30] LABS: TOTAL PROTEIN 6.8 GM/DL (6.4-8.2)
[2022-01-08 05:32] LABS: BILIRUBIN,TOTAL 0.2 MG/DL (0.1-1.0)
[2022-01-08 05:34] LABS: CREATININE SERUM 2.4 MG/DL (0.60-1.30)
[2022-01-08] MEDS: PANTOPRAZOLE 40 MG (PROTONIX) TAB PO SCH (05:34)
[2022-01-08] MEDS: LEVOTHYROXINE 50 MCG (LEVOTHROID) TAB PO SCH (05:34)
--- NOTE | 2022-01-08 05:34 | Progress Note ---
Subjective Date Seen by a Provider: Jan 08, 2022 Time Seen by a Provider: 08:00 Subjective/Events-last exam In a jolly mood Creat 2.4 Eating well Review of Systems Neurological: Confusion Objective Exam Last Set of Vital Signs Vital Signs Date Time Temp Pulse Resp B/P (MAP) Pulse Ox O2 Delivery O2 Flow Rate FiO2 01/08/22 03:50 36.9 98 16 115/67 (83) 96 Room Air Capillary Refill : Less Than 3 Seconds I&O Intake and Output0 01/08/22 00:00 Intake Total 1060 ml Output Total 950 ml Balance 110 ml Intake Oral 1060 ml Output Urine Total 950 ml # Bowel Movements 1 General: Alert, Oriented X3, Cooperative, No Acute Distress Lungs: Clear to Auscultation, Normal Air Movement Heart: Regular Rate, Normal S1, Normal S2, No Murmurs Results Lab Laboratory Tests 01/08/22 04:50: White Blood Count 5.0, Red Blood Count 3.50L, Hemoglobin 10.7L, Hematocrit 33L, Mean Corpuscular Volume 95, Mean Corpuscular Hemoglobin 31, Mean Corpuscular Hemoglobin Concent 32, Red Cell Distribution Width 15.1H, Platelet Count 217, Mean Platelet Volume 9.4, Immature Granulocyte % (Auto) 1, Neutrophils (%) (Auto) 67, Lymphocytes (%) (Auto) 16, Monocytes (%) (Auto) 10, Eosinophils (%) (Auto) 6, Basophils (%) (Auto) 1, Neutrophils # (Auto) 3.3, Lymphocytes # (Auto) 0.8L, Monocytes # (Auto) 0.5, Eosinophils # (Auto) 0.3, Basophils # (Auto) 0.0, Immature Granulocyte # (Auto) 0.0, Sodium Level 138, Potassium Level 5.0, Chloride Level 110H, Carbon Dioxide Level 19L, Anion Gap 9, Glucose Level 117H, Calcium Level 8.8, Corrected Calcium 9.2, Total Bilirubin 0.2, Total Protein 6.8, Albumin 3.5 Microbiology 01/04/22 Urine Culture - Final, Complete Klebsiella oxytoca Klebsiella oxytoca#2 Mixed Bacterial Gisela Assessment/Plan Assessment/Plan Assess & Plan/Chief Complaint Assessment: Complicated UTI CKD Dementia Plan: IV abx Monitor closely Clinical Quality Measures Admission Status Admission Dx IV abx Monitor closely Anti-psychotics HERMINIO GOODMAN DO Jan 08, 2022 05:33
[2022-01-08] MEDS: PRAMIPEXOLE 0.5 MG TAB (MIRAPEX) PO SCH ×3 (05:35→19:42)
[2022-01-08 07:30] VITALS: BP 153/67
[2022-01-08] MEDS: cefTRIAXone 1 GM PRE-MIX 50 ML IV SCH (10:02)
[2022-01-08] MEDS: DOCUSATE SODIUM 100 MG (COLACE) CAP PO SCH ×2 (10:03→19:41)
[2022-01-08] MEDS: lisINopril 5 MG (PRINIVIL) TABLET PO SCH (10:03)
[2022-01-08] MEDS: SENNOSIDES 8.6 MG (SENOKOT) TAB PO SCH ×2 (10:03→19:41)
[2022-01-08] MEDS: ISOSORBIDE MONONITRATE 30 MG (IMDUR) TAB PO SCH (10:03)
[2022-01-08] MEDS: FERROUS SULF 325 MG (IRON) TAB PO SCH (10:03)
[2022-01-08] MEDS: QUEtiapine 25 MG (SEROquel) TAB IMMEDIATE RELEASE PO SCH (10:04)
[2022-01-08] MEDS: ACETAMINOPHEN 325 MG TABLET PO PRN ×2 (11:30→19:41)
[2022-01-08] MEDS: QUEtiapine 100 MG (SEROquel) TAB IMMEDIATE RELEASE PO SCH ×2 (11:30→19:42)
[2022-01-08 15:09] VITALS: BP 140/76
[2022-01-08] MEDS: MELATONIN 10 MG TABLET PO SCH (19:41)
[2022-01-08] MEDS: ISOSORBIDE MONONITRATE 60 MG (IMDUR) TAB PO SCH (19:42)
[2022-01-08] MEDS: ZIPRASIDONE 20 MG INJ (GEODON) VIAL IM PRN (21:47)
[2022-01-08] MEDS: WATER (STERILE) FOR INJ 10 ML BTL INJ SCH (21:47)
[2022-01-09 01:00] VITALS: BP 161/84
[2022-01-09] MEDS: PRAMIPEXOLE 0.5 MG TAB (MIRAPEX) PO SCH ×3 (06:41→19:23)
[2022-01-09] MEDS: LEVOTHYROXINE 50 MCG (LEVOTHROID) TAB PO SCH (06:41)
[2022-01-09] MEDS: PANTOPRAZOLE 40 MG (PROTONIX) TAB PO SCH (06:41)
[2022-01-09 07:09] VITALS: BP 177/77
[2022-01-09 07:21] LABS: BASOPHILS % (AUTO) 1 % (0-10); EOSINOPHILS # (AUTO) 0.3 10^3/uL (0.0-0.3); EOSINOPHILS % (AUTO) 7 % (0-10); HEMATOCRIT 35 % (40-54); HEMOGLOBIN 11.5 g/dL (13.3-17.7); LYMPHOCYTES # (AUTO) 0.7 10^3/uL (1.0-4.0); LYMPHOCYTES % (AUTO) 16 % (12-44); MEAN CORPUSCULAR HEMOGLOBIN 31 pg (25-34); MEAN CORPUSCULAR HGB CONC 33 g/dL (32-36); MEAN CORPUSCULAR VOLUME 93 fL (80-99); MEAN PLATELET VOLUME 9.2 fL (9.0-12.2); MONOCYTES # (AUTO) 0.4 10^3/uL (0.0-1.0); MONOCYTES % (AUTO) 9 % (0-12); NEUTROPHILS # (AUTO) 2.7 10^3/uL (1.8-7.8); NEUTROPHILS % (AUTO) 65 % (42-75); PLATELET COUNT 216 10^3/uL (130-400); WHITE BLOOD COUNT 4.1 10^3/uL (4.3-11.0)
--- NOTE | 2022-01-09 07:44 | Progress Note ---
Subjective Date Seen by a Provider: Jan 09, 2022 Time Seen by a Provider: 11:00 Subjective/Events-last exam No major issues Eating well Review of Systems General: Fatigue, Malaise Neurological: Confusion Objective Exam Last Set of Vital Signs Vital Signs Date Time Temp Pulse Resp B/P (MAP) Pulse Ox O2 Delivery O2 Flow Rate FiO2 01/09/22 07:09 36.2 75 18 177/77 (110) 97 Room Air Capillary Refill : Less Than 3 Seconds I&O Intake and Output 01/09/22 00:00 Intake Total 1820 ml Output Total 1825 ml Balance -5 ml Intake Oral 1820 ml Output Urine Total 1825 ml # Bowel Movements 2 General: Alert, Cooperative, No Acute Distress Lungs: Clear to Auscultation Heart: Regular Rate Results Lab Laboratory Tests 01/09/22 07:13: White Blood Count 4.1L, Red Blood Count 3.76L, Hemoglobin 11.5L, Hematocrit 35L, Mean Corpuscular Volume 93, Mean Corpuscular Hemoglobin 31, Mean Corpuscular Hemoglobin Concent 33, Red Cell Distribution Width 14.9H, Platelet Count 216, Mean Platelet Volume 9.2, Immature Granulocyte % (Auto) 1, Neutrophils (%) (Auto) 65, Lymphocytes (%) (Auto) 16, Monocytes (%) (Auto) 9, Eosinophils (%) (Auto) 7, Basophils (%) (Auto) 1, Neutrophils # (Auto) 2.7, Lymphocytes # (Auto) 0.7L, Monocytes # (Auto) 0.4, Eosinophils # (Auto) 0.3, Basophils # (Auto) 0.0, Immature Granulocyte # (Auto) 0.1 Microbiology 01/04/22 Urine Culture - Final, Complete Klebsiella oxytoca Klebsiella oxytoca#2 Mixed Bacterial Gisela Assessment/Plan Assessment/Plan Assess & Plan/Chief Complaint Assessment: Complicated UTI CKD Dementia Plan: IV abx Monitor closely Clinical Quality Measures Admission Status Admission Dx IV abx Monitor closely Anti-psychotics HERMINIO GOODMAN DO Jan 09, 2022 07:44
[2022-01-09 07:48] LABS: ALBUMIN 3.6 GM/DL (3.2-4.5); BILIRUBIN,TOTAL 0.2 MG/DL (0.1-1.0); CALCIUM 9.2 MG/DL (8.5-10.1); CREATININE SERUM 1.87 MG/DL (0.60-1.30); POTASSIUM 5.3 MMOL/L (3.6-5.0)
[2022-01-09] MEDS: QUEtiapine 25 MG (SEROquel) TAB IMMEDIATE RELEASE PO SCH (08:33)
[2022-01-09] MEDS: FERROUS SULF 325 MG (IRON) TAB PO SCH (08:34)
[2022-01-09] MEDS: ACETAMINOPHEN 325 MG TABLET PO PRN (08:34)
[2022-01-09] MEDS: DOCUSATE SODIUM 100 MG (COLACE) CAP PO SCH ×2 (08:34→19:23)
[2022-01-09] MEDS: CEFDINIR 300 MG (OMNICEF) CAP PO SCH ×2 (08:34→19:23)
[2022-01-09] MEDS: SENNOSIDES 8.6 MG (SENOKOT) TAB PO SCH ×2 (08:34→19:23)
[2022-01-09] MEDS: ISOSORBIDE MONONITRATE 30 MG (IMDUR) TAB PO SCH (08:34)
[2022-01-09] MEDS: lisINopril 5 MG (PRINIVIL) TABLET PO SCH (08:35)
[2022-01-09 11:27] VITALS: BP 168/75
[2022-01-09] MEDS ORDERED: SODIUM POLYSTYRENE POWDER 15 GM BOTTLE PO ONE (11:45)
[2022-01-09] MEDS: QUEtiapine 100 MG (SEROquel) TAB IMMEDIATE RELEASE PO SCH ×2 (13:22→19:23)
[2022-01-09] MEDS: LORazepam 0.5 MG (ATIVAN) TABLET PO PRN ×2 (13:25→19:23)
[2022-01-09] MEDS: ZIPRASIDONE 20 MG INJ (GEODON) VIAL IM PRN ×2 (13:48→23:54)
[2022-01-09] MEDS: WATER (STERILE) FOR INJ 10 ML BTL INJ SCH ×2 (13:55→23:55)
[2022-01-09 15:48] VITALS: BP 171/82
[2022-01-09] MEDS: MELATONIN 10 MG TABLET PO SCH (19:22)
[2022-01-09] MEDS: ISOSORBIDE MONONITRATE 60 MG (IMDUR) TAB PO SCH (19:23)
[2022-01-10] VITALS: BP 146/78
[2022-01-10] MEDS: LORazepam 0.5 MG (ATIVAN) TABLET PO PRN ×2 (03:02→10:04)
[2022-01-10] MEDS: LEVOTHYROXINE 50 MCG (LEVOTHROID) TAB PO SCH (05:04)
[2022-01-10] MEDS: PANTOPRAZOLE 40 MG (PROTONIX) TAB PO SCH (05:04)
[2022-01-10] MEDS: PRAMIPEXOLE 0.5 MG TAB (MIRAPEX) PO SCH ×2 (05:04→12:43)
[2022-01-10 05:53] LABS: BASOPHILS # (AUTO) 0.1 10^3/uL (0.0-0.1); BASOPHILS % (AUTO) 1 % (0-10); EOSINOPHILS # (AUTO) 0.4 10^3/uL (0.0-0.3); EOSINOPHILS % (AUTO) 8 % (0-10); HEMATOCRIT 36 % (40-54); HEMOGLOBIN 11.5 g/dL (13.3-17.7); LYMPHOCYTES # (AUTO) 0.8 10^3/uL (1.0-4.0); LYMPHOCYTES % (AUTO) 15 % (12-44); MEAN CORPUSCULAR HEMOGLOBIN 30 pg (25-34); MEAN CORPUSCULAR HGB CONC 32 g/dL (32-36); MEAN CORPUSCULAR VOLUME 95 fL (80-99); MEAN PLATELET VOLUME 9.5 fL (9.0-12.2); MONOCYTES # (AUTO) 0.4 10^3/uL (0.0-1.0); MONOCYTES % (AUTO) 8 % (0-12); NEUTROPHILS # (AUTO) 3.6 10^3/uL (1.8-7.8); NEUTROPHILS % (AUTO) 66 % (42-75); PLATELET COUNT 237 10^3/uL (130-400); WHITE BLOOD COUNT 5.4 10^3/uL (4.3-11.0)
[2022-01-10 06:01] LABS: ALBUMIN 3.7 GM/DL (3.2-4.5); POTASSIUM 4.8 MMOL/L (3.6-5.0)
[2022-01-10 06:04] LABS: TOTAL PROTEIN 7.2 GM/DL (6.4-8.2)
[2022-01-10 06:06] LABS: BILIRUBIN,TOTAL 0.2 MG/DL (0.1-1.0)
[2022-01-10 06:07] LABS: CREATININE SERUM 1.97 MG/DL (0.60-1.30)
[2022-01-10 07:29] VITALS: BP 138/72
[2022-01-10] MEDS: SENNOSIDES 8.6 MG (SENOKOT) TAB PO SCH (08:09)
[2022-01-10] MEDS: DOCUSATE SODIUM 100 MG (COLACE) CAP PO SCH (08:10)
[2022-01-10] MEDS: CEFDINIR 300 MG (OMNICEF) CAP PO SCH (08:10)
[2022-01-10] MEDS: FERROUS SULF 325 MG (IRON) TAB PO SCH (08:10)
[2022-01-10] MEDS: QUEtiapine 25 MG (SEROquel) TAB IMMEDIATE RELEASE PO SCH (08:10)
[2022-01-10] MEDS: ISOSORBIDE MONONITRATE 30 MG (IMDUR) TAB PO SCH (08:14)
[2022-01-10] MEDS: lisINopril 5 MG (PRINIVIL) TABLET PO SCH (08:14)
[2022-01-10] MEDS: ACETAMINOPHEN 325 MG TABLET PO PRN ×2 (08:16→12:43)
[2022-01-10] MEDS: SODIUM BICARBONATE 650 MG TABLET PO SCH ×2 (10:04→12:43)
--- NOTE | 2022-01-10 10:41 | Discharge Summary ---
Diagnosis/Chief Complaint Date of Admission Jan 07, 2022 at 08:00 Date of Discharge Discharge Date: Jan 07, 2022 Discharge Summary Discharge Physical Examination Allergies: Coded Allergies: NKANo Known Allergies (Verified Allergy, Mild, 11/24/11) Uncoded Allergies: BEE STINGS (Allergy, Severe, SOA/HIVES, 11/01/10) Vitals & I&Os Vital Signs Date Time Temp Pulse Resp B/P (MAP) Pulse Ox O2 Delivery O2 Flow Rate FiO2 01/10/22 08:00 95 Room Air 01/10/22 07:29 36.1 83 18 138/72 (94) Hospital Course Labs (last 24 hrs) Laboratory Tests 01/04/22 12:21: White Blood Count 7.0, Red Blood Count 3.81L, Hemoglobin 11.7L, Hematocrit 37L, Mean Corpuscular Volume 97, Mean Corpuscular Hemoglobin 31, Mean Corpuscular Hemoglobin Concent 32, Red Cell Distribution Width 15.2H, Platelet Count 219, Mean Platelet Volume 8.9L, Immature Granulocyte % (Auto) 0, Neutrophils (%) (Auto) 78H, Lymphocytes (%) (Auto) 11L, Monocytes (%) (Auto) 7, Eosinophils (%) (Auto) 3, Basophils (%) (Auto) 0, Neutrophils # (Auto) 5.5, Lymphocytes # (Auto) 0.8L, Monocytes # (Auto) 0.5, Eosinophils # (Auto) 0.2, Basophils # (Auto) 0.0, Immature Granulocyte # (Auto) 0.0, Sodium Level 138, Potassium Level 4.8, Chloride Level 108H, Carbon Dioxide Level 20L, Anion Gap 10, Blood Urea Nitrogen 30H, Creatinine 2.17H, Estimat Glomerular Filtration Rate 29, BUN/Creatinine Ratio 14, Glucose Level 116H, Calcium Level 9.1, Corrected Calcium 9.0, Total B ilirubin 0.3, Aspartate Amino Transf (AST/SGOT) 19, Alanine Aminotransferase (ALT/SGPT) 17, Alkaline Phosphatase 88, Total Protein 7.5, Albumin 4.1, Thyroid Stimulating Hormone (TSH) 2.21 01/04/22 12:57: Urine Color YELLOW, Urine Clarity CLEAR, Urine pH 5.0, Urine Specific [place] 1.020, Urine Protein TRACEH, Urine Glucose (UA) NEGATIVE, Urine Ketones NEGATIVE, Urine Nitrite POSITIVEH, Urine Bilirubin NEGATIVE, Urine Urobilinogen 0.2, Urine Leukocyte Esterase 1+H, Urine RBC (Auto) TRACE-IH, Urine RBC 0-2, Urine WBC 50-100H, Urine Squamous Epithelial Cells NONE, Urine Crystals NONE, Urine Bacteria LARGEH, Urine Casts NONE, Urine Mucus NEGATIVE, Urine Culture Indicated YES, Urine Opiates Screen NEGATIVE, Urine Oxycodone Screen NEGATIVE, Urine Methadone Screen NEGATIVE, Urine Propoxyphene Screen NEGATIVE, Urine Barbiturates Screen NEGATIVE, Ur Tricyclic Antidepressants Screen POSITIVEH, Urine Phencyclidine Screen NEGATIVE, Urine Amphetamines Screen NEGATIVE, Urine Methamphetamines Screen NEGATIVE, Urine Benzodiazepines Screen NEGATIVE, Urine Cocaine Screen NEGATIVE, Urine Cannabinoids Screen NEGATIVE 01/05/22 05:37: White Blood Count 7.1, Red Blood Count 4.05L, Hemoglobin 12.6L, Hematocrit 38L, Mean Corpuscular Volume 95, Mean Corpuscular Hemoglobin 31, Mean Corpuscular Hemoglobin Concent 33, Red Cell Distribution Width 15.0H, Platelet Count 240, Mean Platelet Volume 9.4, Immature Granulocyte % (Auto) 0, Neutrophils (%) (Auto) 78H, Lymphocytes (%) (Auto) 10L, Monocytes (%) (Auto) 7, Eosinophils (%) (Auto) 4, Basophils (%) (Auto) 0, Neutrophils # (Auto) 5.6, Lymphocytes # (Auto) 0.7L, Monocytes # (Auto) 0.5, Eosinophils # (Auto) 0.3, Basophils # (Auto) 0.0, Immature Granulocyte # (Auto) 0.0, Sodium Level 139, Potassium Level 4.7, Chloride Level 109H, Carbon Dioxide Level 16L, Anion Gap 14, Blood Urea Nitrogen 23H, Creatinine 1.75H, Estimat Glomerular Filtration Rate 37, BUN/Creatinine Ratio 13, Glucose Level 127H, Calcium Level 9.3, Corrected Calcium 9.4, Total Bilirubin 0.2, Aspartate Amino Transf (AST/SGOT) 17, Alanine Aminotransferase (ALT/SGPT) 16, Alkaline Phosphatase 84, Total Protein 7.6, Albumin 3.9 01/06/22 05:34: White Blood Count 6.1, Red Blood Count 3.71L, Hemoglobin 11.3L, Hematocrit 35L, Mean Corpuscular Volume 94, Mean Corpuscular Hemoglobin 31, Mean Corpuscular Hemoglobin Concent 32, Red Cell Distribution Width 15.0H, Platelet Count 219, Mean Platelet Volume 9.4, Immature Granulocyte % (Auto) 1, Neutrophils (%) (Auto) 72, Lymphocytes (%) (Auto) 13, Monocytes (%) (Auto) 10, Eosinophils (%) (Auto) 4, Basophils (%) (Auto) 1, Neutrophils # (Auto) 4.4, Lymphocytes # (Auto) 0.8L, Monocytes # (Auto) 0.6, Eosinophils # (Auto) 0.3, Basophils # (Auto) 0.0, Immature Granulocyte # (Auto) 0.0, Sodium Level 141, Potassium Level 4.2, Chloride Level 111H, Carbon Dioxide Level 20L, Anion Gap 10, Blood Urea Nitrogen 29H, Creatinine 2.01H, Estimat Glomerular Filtration Rate 32, BUN/Creatinine Ratio 14, Glucose Level 135H, Calcium Level 9.0, Corrected Calcium 9.3, Total Bilirubin 0.2, Aspartate Amino Transf (AST/SGOT) 16, Alanine Aminotransferase (ALT/SGPT) 12, Alkaline Phosphatase 77, Total Protein 7.0, Albumin 3.6 01/07/22 05:25: White Blood Count 5.9, Red Blood Count 3.73L, Hemoglobin 11.3L, Hematocrit 36L, Mean Corpuscular Volume 96, Mean Corpuscular Hemoglobin 30, Mean Corpuscular Hemoglobin Concent 32, Red Cell Distribution Width 15.2H, Platelet Count 218, Mean Platelet Volume 9.6, Immature Granulocyte % (Auto) 1, Neutrophils (%) (Auto) 62, Lymphocytes (%) (Auto) 20, Monocytes (%) (Auto) 11, Eosinophils (%) (Auto) 6, Basophils (%) (Auto) 1, Neutrophils # (Auto) 3.7, Lymphocytes # (Auto) 1.2, Monocytes # (Auto) 0.6, Eosinophils # (Auto) 0.4H, Basophils # (Auto) 0.0, Immature Granulocyte # (Auto) 0.0, Sodium Level 141, Potassium Level 4.4, Chloride Level 110H, Carbon Dioxide Level 19L, Anion Gap 12, Blood Urea Nitrogen 34H, Creatinine 2.71#H, Estimat Glomerular Filtration Rate 22, BUN/Creatinine Ratio 13, Glucose Level 101, Calcium Level 8.9, Corrected Calcium 9.1, Total Bilirubin 0.2, Aspartate Amino Transf (AST/SGOT) 14, Alanine Aminotransferase (ALT/SGPT) 12, Alkaline Phosphatase 76, Total Protein 7.2, Albumin 3.7 01/08/22 04:50: White Blood Count 5.0, Red Blood Count 3.50L, Hemoglobin 10.7L, Hematocrit 33L, Mean Corpuscular Volume 95, Mean Corpuscular Hemoglobin 31, Mean Corpuscular Hemoglobin Concent 32, Red Cell Distribution Width 15.1H, Platelet Count 217, Mean Platelet Volume 9.4, Immature Granulocyte % (Auto) 1, Neutrophils (%) (Auto) 67, Lymphocytes (%) (Auto) 16, Monocytes (%) (Auto) 10, Eosinophils (%) (Auto) 6, Basophils (%) (Auto) 1, Neutrophils # (Auto) 3.3, Lymphocytes # (Auto) 0.8L, Monocytes # (Auto) 0.5, Eosinophils # (Auto) 0.3, Basophils # (Auto) 0.0, Immature Granulocyte # (Auto) 0.0, Sodium Level 138, Potassium Level 5.0, Chloride Level 110H, Carbon Dioxide Level 19L, Anion Gap 9, Blood Urea Nitrogen 36H, Creatinine 2.40H, Estimat Glomerular Filtration Rate 25, BUN/Creatinine Ratio 15, Glucose Level 117H, Calcium Level 8.8, Corrected Calcium 9.2, Total Bilirubin 0.2, Aspartate Amino Transf (AST/SGOT) 16, Alanine Aminotransferase (ALT/SGPT) 13, Alkaline Phosphatase 75, Total Protein 6.8, Albumin 3.5 01/09/22 07:13: White Blood Count 4.1L, Red Blood Count 3.76L, Hemoglobin 11.5L, Hematocrit 35L, Mean Corpuscular Volume 93, Mean Corpuscular Hemoglobin 31, Mean Corpuscular Hemoglobin Concent 33, Red Cell Distribution Width 14.9H, Platelet Count 216, Mean Platelet Volume 9.2, Immature Granulocyte % (Auto) 1, Neutrophils (%) (Auto) 65, Lymphocytes (%) (Auto) 16, Monocytes (%) (Auto) 9, Eosinophils (%) (Auto) 7, Basophils (%) (Auto) 1, Neutrophils # (Auto) 2.7, Lymphocytes # (Auto) 0.7L, Monocytes # (Auto) 0.4, Eosinophils # (Auto) 0.3, Basophils # (Auto) 0.0, Immature Granulocyte # (Auto) 0.1, Sodium Level 140, Potassium Level 5.3H, Chloride Level 110H, Carbon Dioxide Level 19L, Anion Gap 11, Blood Urea Nitrogen 30H, Creatinine 1.87H, Estimat Glomerular Filtration Rate 34, BUN/Creatinine Ratio 16, Glucose Level 111H, Calcium Level 9.2, Corrected Calcium 9.5, Total Bilirubin 0.2, Aspartate Amino Transf (AST/SGOT) 17, Alanine Aminotransferase (ALT/SGPT) 17, Alkaline Phosphatase 73, Total Protein 7.0, Albumin 3.6 01/10/22 05:22: White Blood Count 5.4, Red Blood Count 3.79L, Hemoglobin 11.5L, Hematocrit 36L, Mean Corpuscular Volume 95, Mean Corpuscular Hemoglobin 30, Mean Corpuscular Hemoglobin Concent 32, Red Cell Distribution Width 14.9H, Platelet Count 237, Mean Platelet Volume 9.5, Immature Granulocyte % (Auto) 2, Neutrophils (%) (Auto) 66, Lymphocytes (%) (Auto) 15, Monocytes (%) (Auto) 8, Eosinophils (%) (Auto) 8, Basophils (%) (Auto) 1, Neutrophils # (Auto) 3.6, Lymphocytes # (Auto) 0.8L, Monocytes # (Auto) 0.4, Eosinophils # (Auto) 0.4H, Basophils # (Auto) 0.1, Immature Granulocyte # (Auto) 0.1, Sodium Level 138, Potassium Level 4.8, Chloride Level 110H, Carbon Dioxide Level 16L, Anion Gap 12, Blood Urea Nitrogen 32H, Creatinine 1.97H, Estimat Glomerular Filtration Rate 32, BUN/Creatinine Ratio 16, Glucose Level 120H, Calcium Level 9.0, Corrected Calcium 9.2, Total Bilirubin 0.2, Aspartate Amino Transf (AST/SGOT) 21, Alanine Aminotransferase (ALT/SGPT) 19, Alkaline Phosphatase 79, Total Protein 7.2, Albumin 3.7 Microbiology 01/04/22 Urine Culture - Final, Complete Klebsiella oxytoca Klebsiella oxytoca#2 Mixed Bacterial Gisela Pending Labs Microbiology Date/Time Source Procedure Growth Status 01/04/22 12:57 Urine Clean Catch Urine Culture - Final Klebsiella oxytoca Klebsiella oxytoca#2 Mixed Bacterial Gisela Complete Laboratory Tests 01/04/22 12:21: White Blood Count 7.0, Red Blood Count 3.81, Hemoglobin 11.7, Hematocrit 37, Mean Corpuscular Volume 97, Mean Corpuscular Hemoglobin 31, Mean Corpuscular Hemoglobin Concent 32, Red Cell Distribution Width 15.2, Platelet Count 219, Mean Platelet Volume 8.9, Immature Granulocyte % (Auto) 0, Neutrophils (%) (Auto) 78, Lymphocytes (%) (Auto) 11, Monocytes (%) (Auto) 7, Eosinophils (%) (Auto) 3, Basophils (%) (Auto) 0, Neutrophils # (Auto) 5.5, Lymphocytes # (Auto) 0.8, Monocytes # (Auto) 0.5, Eosinophils # (Auto) 0.2, Basophils # (Auto) 0.0, Immature Granulocyte # (Auto) 0.0, Sodium Level 138, Potassium Level 4.8, Chlor stefani Level 108, Carbon Dioxide Level 20, Anion Gap 10, Blood Urea Nitrogen 30, Creatinine 2.17, Estimat Glomerular Filtration Rate 29, BUN/Creatinine Ratio 14, Glucose Level 116, Calcium Level 9.1, Corrected Calcium 9.0, Total Bilirubin 0.3, Aspartate Amino Transf (AST/SGOT) 19, Alanine Aminotransferase (ALT/SGPT) 17, Alkaline Phosphatase 88, Total Protein 7.5, Albumin 4.1, Thyroid Stimulating Hormone (TSH) 2.21 01/04/22 12:57: Urine Color YELLOW, Urine Clarity CLEAR, Urine pH 5.0, Urine Specific [place] 1.020, Urine Protein TRACE, Urine Glucose (UA) NEGATIVE, Urine Ketones NEGATIVE, Urine Nitrite POSITIVE, Urine Bilirubin NEGATIVE, Urine Urobilinogen 0.2, Urine Leukocyte Esterase 1+, Urine RBC (Auto) TRACE-I, Urine RBC 0-2, Urine WBC 50- 100, Urine Squamous Epithelial Cells NONE, Urine Crystals NONE, Urine Bacteria LARGE, Urine Casts NONE, Urine Mucus NEGATIVE, Urine Culture Indicated YES, Urine Opiates Screen NEGATIVE, Urine Oxycodone Screen NEGATIVE, Urine Methadone Screen NEGATIVE, Urine Propoxyphene Screen NEGATIVE, Urine Barbiturates Screen NEGATIVE, Ur Tricyclic Antidepressants Screen POSITIVE, Urine Phencyclidine Screen NEGATIVE, Urine Amphetamines Screen NEGATIVE, Urine Methamphetamines Screen NEGATIVE, Urine Benzodiazepines Screen NEGATIVE, Urine Cocaine Screen NEGATIVE, Urine Cannabinoids Screen NEGATIVE 01/05/22 05:37: White Blood Count 7.1, Red Blood Count 4.05, Hemoglobin 12.6, Hematocrit 38, Mean Corpuscular Volume 95, Mean Corpuscular Hemoglobin 31, Mean Corpuscular Hemoglobin Concent 33, Red Cell Distribution Width 15.0, Platelet Count 240, Mean Platelet Volume 9.4, Immature Granulocyte % (Auto) 0, Neutrophils (%) (Auto) 78, Lymphocytes (%) (Auto) 10, Monocytes (%) (Auto) 7, Eosinophils (%) (Auto) 4, Basophils (%) (Auto) 0, Neutrophils # (Auto) 5.6, Lymphocytes # (Auto) 0.7, Monocytes # (Auto) 0.5, Eosinophils # (Auto) 0.3, Basophils # (Auto) 0.0, Immature Granulocyte # (Auto) 0.0, Sodium Level 139, Potassium Level 4.7, Chloride Level 109, Carbon Dioxide Level 16, Anion Gap 14, Blood Urea Nitrogen 23, Creatinine 1.75, Estimat Glomerular Filtration Rate 37, BUN/Creatinine Ratio 13, Glucose Level 127, Calcium Level 9.3, Corrected Calcium 9.4, Total Bilirubin 0.2, Aspartate Amino Transf (AST/SGOT) 17, Alanine Aminotransferase (ALT/SGPT) 16, Alkaline Phosphatase 84, Total Protein 7.6, Albumin 3.9 01/06/22 05:34: White Blood Count 6.1, Red Blood Count 3.71, Hemoglobin 11.3, Hematocrit 35, Mean Corpuscular Volume 94, Mean Corpuscular Hemoglobin 31, Mean Corpuscular Hemoglobin Concent 32, Red Cell Distribution Width 15.0, Platelet Count 219, Mean Platelet Volume 9.4, Immature Granulocyte % (Auto) 1, Neutrophils (%) (Auto) 72, Lymphocytes (%) (Auto) 13, Monocytes (%) (Auto) 10, Eosinophils (%) (Auto) 4, Basophils (%) (Auto) 1, Neutrophils # (Auto) 4.4, Lymphocytes # (Auto) 0.8, Monocytes # (Auto) 0.6, Eosinophils # (Auto) 0.3, Basophils # (Auto) 0.0, Immature Granulocyte # (Auto) 0.0, Sodium Level 141, Potassium Level 4.2, Chloride Level 111, Carbon Dioxide Level 20, Anion Gap 10, Blood Urea Nitrogen 29, Creatinine 2.01, Estimat Glomerular Filtration Rate 32, BUN/Creatinine Ratio 14, Glucose Level 135, Calcium Level 9.0, Corrected Calcium 9.3, Total Bilirubin 0.2, Aspartate Amino Transf (AST/SGOT) 16, Alanine Aminotransferase (ALT/SGPT) 12, Alkaline Phosphatase 77, Total Protein 7.0, Albumin 3.6 01/07/22 05:25: White Blood Count 5.9, Red Blood Count 3.73, Hemoglobin 11.3, Hematocrit 36, Mean Corpuscular Volume 96, Mean Corpuscular Hemoglobin 30, Mean Corpuscular Hemoglobin Concent 32, Red Cell Distribution Width 15.2, Platelet Count 218, Mean Platelet Volume 9.6, Immature Granulocyte % (Auto) 1, Neutrophils (%) (Auto) 62, Lymphocytes (%) (Auto) 20, Monocytes (%) (Auto) 11, Eosinophils (%) (Auto) 6, Basophils (%) (Auto) 1, Neutrophils # (Auto) 3.7, Lymphocytes # (Auto) 1.2, Monocytes # (Auto) 0.6, Eosinophils # (Auto) 0.4, Basophils # (Auto) 0.0, Immature Granulocyte # (Auto) 0.0, Sodium Level 141, Potassium Level 4.4, Chloride Level 110, Carbon Dioxide Level 19, Anion Gap 12, Blood Urea Nitrogen 34, Creatinine 2.71, Estimat Glomerular Filtration Rate 22, BUN/Creatinine Ratio 13, Glucose Level 101, Calcium Level 8.9, Corrected Calcium 9.1, Total Bilirubin 0.2, Aspartate Amino Transf (AST/SGOT) 14, Alanine Aminotransferase (ALT/SGPT) 12, Alkaline Phosphatase 76, Total Protein 7.2, Albumin 3.7 01/08/22 04:50: White Blood Count 5.0, Red Blood Count 3.50, Hemoglobin 10.7, Hematocrit 33, Mean Corpuscular Volume 95, Mean Corpuscular Hemoglobin 31, Mean Corpuscular Hemoglobin Concent 32, Red Cell Distribution Width 15.1, Platelet Count 217, Mean Platelet Volume 9.4, Immature Granulocyte % (Auto) 1, Neutrophils (%) (Auto) 67, Lymphocytes (%) (Auto) 16, Monocytes (%) (Auto) 10, Eosinophils (%) (Auto) 6, Basophils (%) (Auto) 1, Neutrophils # (Auto) 3.3, Lymphocytes # (Auto) 0.8, Monocytes # (Auto) 0.5, Eosinophils # (Auto) 0.3, Basophils # (Auto) 0.0, Immature Granulocyte # (Auto) 0.0, Sodium Level 138, Potassium Level 5.0, Chloride Level 110, Carbon Dioxide Level 19, Anion Gap 9, Blood Urea Nitrogen 36, Creatinine 2.40, Estimat Glomerular Filtration Rate 25, BUN/Creatinine Ratio 15, Glucose Level 117, Calcium Level 8.8, Corrected Calcium 9.2, Total Bilirubin 0.2, Aspartate Amino Transf (AST/SGOT) 16, Alanine Aminotransferase (ALT/SGPT) 13, Alkaline Phosphatase 75, Total Protein 6.8, Albumin 3.5 01/09/22 07:13: White Blood Count 4.1, Red Blood Count 3.76, Hemoglobin 11.5, Hematocrit 35, Mean Corpuscular Volume 93, Mean Corpuscular Hemoglobin 31, Mean Corpuscular Hemoglobin Concent 33, Red Cell Distribution Width 14.9, Platelet Count 216, Mean Platelet Volume 9.2, Immature Granulocyte % (Auto) 1, Neutrophils (%) (Auto) 65, Lymphocytes (%) (Auto) 16, Monocytes (%) (Auto) 9, Eosinophils (%) (Auto) 7, Basophils (%) (Auto) 1, Neutrophils # (Auto) 2.7, Lymphocytes # (Auto) 0.7, Monocytes # (Auto) 0.4, Eosinophils # (Auto) 0.3, Basophils # (Auto) 0.0, Immature Granulocyte # (Auto) 0.1, Sodium Level 140, Potassium Level 5.3, Chloride Level 110, Carbon Dioxide Level 19, Anion Gap 11, Blood Urea Nitrogen 30, Creatinine 1.87, Estimat Glomerular Filtration Rate 34, BUN/Creatinine Ratio 16, Glucose Level 111, Calcium Level 9.2, Corrected Calcium 9.5, Total Bilirubin 0.2, Aspartate Amino Transf (AST/SGOT) 17, Alanine Aminotransferase (ALT/SGPT) 17, Alkaline Phosphatase 73, Total Protein 7.0, Albumin 3.6 01/10/22 05:22: White Blood Count 5.4, Red Blood Count 3.79, Hemoglobin 11.5, Hematocrit 36, Me an Corpuscular Volume 95, Mean Corpuscular Hemoglobin 30, Mean Corpuscular Hemoglobin Concent 32, Red Cell Distribution Width 14.9, Platelet Count 237, Mean Platelet Volume 9.5, Immature Granulocyte % (Auto) 2, Neutrophils (%) (Auto) 66, Lymphocytes (%) (Auto) 15, Monocytes (%) (Auto) 8, Eosinophils (%) (Auto) 8, Basophils (%) (Auto) 1, Neutrophils # (Auto) 3.6, Lymphocytes # (Auto) 0.8, Monocytes # (Auto) 0.4, Eosinophils # (Auto) 0.4, Basophils # (Auto) 0.1, Immature Granulocyte # (Auto) 0.1, Sodium Level 138, Potassium Level 4.8, Chloride Level 110, Carbon Dioxide Level 16, Anion Gap 12, Blood Urea Nitrogen 32, Creatinine 1.97, Estimat Glomerular Filtration Rate 32, BUN/Creatinine Ratio 16, Glucose Level 120, Calcium Level 9.0, Corrected Calcium 9.2, Total Bilirubin 0.2, Aspartate Amino Transf (AST/SGOT) 21, Alanine Aminotransferase (ALT/SGPT) 19, Alkaline Phosphatase 79, Total Protein 7.2, Albumin 3.7 Discharge Home Medications: Active Scripts Active Quetiapine Fumarate 200 Mg Tablet 200 Mg PO DAILY noon Quetiapine Fumarate 100 Mg Tablet 100 Mg PO HS Ativan (Lorazepam) 0.5 Mg Tablet 0.5 Mg PO BID PRN Tylenol Arthritis (Acetaminophen) 650 Mg Tablet.er 1,300 Mg PO TID Senna Lax (Sennosides) 8.6 Mg Tablet 8.6 Mg PO BID Clonidine HCl 0.1 Mg Tablet 0.1 Mg PO Q4HR PRN Heparin Sodium (Heparin Sodium,Porcine) 5,000 Unit/Ml Vial 5,000 Units SC Q8H Cyclobenzaprine HCl 5 Mg Tablet 5 Mg PO BID PRN Potassium Gluconate 595 Mg (99 Mg) Tablet.er 99 Mg PO DAILY PRN Furosemide 40 Mg Tablet 40 Mg PO DAILY PRN Melatonin 10 Mg Tablet 10 Mg PO HS Atorvastatin Calcium 80 Mg Tablet 80 Mg PO HS Pramipexole Dihydrochloride (Pramipexole Di-HCl) 1 Mg Tablet 0.5 Mg PO 0700,1200 Lisinopril 2.5 Mg Tablet 2.5 Mg PO DAILY Quetiapine Fumarate 25 Mg Tablet 75 Mg PO DAILY TAKES 3 (25MG) TABS Cranberry (Cranberry Extract) 500 Mg Tablet 500 Mg PO DAILY Flonase Allergy Relief (Fluticasone Propionate) 50 Mcg/Actuation Alba.susp 1 Alba NS BID PRN Ventolin Hfa (Albuterol Sulfate) 1 Puff Puff 2 Puff INH BID PRN Coricidin Hbp Cough & Cold Tab (Dextromethorphan HBr/Chlor-Mal) 4 Mg-30 Mg Tablet 1 Each PO HS Iron (Ferrous Sulfate) 325 Mg (65 Mg Iron) Tablet 325 Mg PO DAILY Diltiazem HCl 30 Mg Tablet 30 Mg PO DAILY Mirapex (Pramipexole Di-HCl) 1 Mg Tablet 1.5 Mg PO HS Isosorbide Mononitrate ER (Isosorbide Mononitrate) 60 Mg Tab 60 Mg PO HS Isosorbide Mononitrate ER (Isosorbide Mononitrate) 30 Mg Tab.er.24h 30 Mg PO DAILY Omeprazole 40 Mg Capsule.dr 40 Mg PO DAILY Tylenol (Acetaminophen) 325 Mg Capsule 650 Mg PO BID PRN Levothyroxine Sodium 50 Mcg Tablet 50 Mcg PO DAILY Instructions to patient/family Please see electronic discharge instructions given to patient. HERMINIO GOODMAN DO Jan 10, 2022 10:41
[2022-01-10] MEDS: QUEtiapine 100 MG (SEROquel) TAB IMMEDIATE RELEASE PO SCH (12:43)
[2022-01-10] MEDS ORDERED: QUET200T29 PO (13:01)
[2022-01-10] MEDS ORDERED: QUET100T33 PO (13:01)
--- NOTE | 2022-01-10 13:03 | Discharge Summary ---
Diagnosis/Chief Complaint Date of Admission Jan 07, 2022 at 08:00 Date of Discharge Discharge Date: Jan 07, 2022 Discharge Diagnosis Assessment: Complicated UTI Urostomy in place from bladder cancer CKD Dementia Discharge Summary Discharge Physical Examination Allergies: Coded Allergies: NKANo Known Allergies (Verified Allergy, Mild, 11/24/11) Uncoded Allergies: BEE STINGS (Allergy, Severe, SOA/HIVES, 11/01/10) Vitals & I&Os Vital Signs Date Time Temp Pulse Resp B/P (MAP) Pulse Ox O2 Delivery O2 Flow Rate FiO2 01/10/22 13:30 36.1 83 18 138/72 95 Room Air General Appearance: Alert, Oriented X3, Cooperative Respiratory: Clear to Auscultation Cardiovascular: Regular Rate Psych/Mental Status: Mental Status NL Hospital Course Was the Problem List Reviewed?: Yes Hospital Course: 86yo M with h/o vascular dementia, bladder and renal cancer with urostomy was admitted following presentation to the ED yesterday for increased confusion and REESE. Per ED note, pt has experienced worsening dementia and pt "wandered off" from home. Pt was found by a neighbor and placed into DCF custody. This prompted the to bring the pt to the ED for evaluation d/t increasingly altered behavior. Workup was unremarkable except for a positive UA for klebisella/ enterobacter. Pt was given a dose of Rocephin and then admitted to the floor. Since being admitted, pt's mentation has improved but is only oriented to self which appears to be baseline. His antibiotics were changed to Cefdinir 300mg BID for a total of 10 day course which will finish 01/13/22. Pt has had no issues with BMs or urostomy output since being admitted and tolerated his diet well. Pt has been able to ambulate with walker without issue. Pt continues to have no complaints and is stable for discharge. Pt is expected to be discharged to [facility] in [place] pending insurance approval. Labs (last 24 hrs) Laboratory Tests 01/04/22 12:21: White Blood Count 7.0, Red Blood Count 3.81L, Hemoglobin 11.7L, Hematocrit 37L, Mean Corpuscular Volume 97, Mean Corpuscular Hemoglobin 31, Mean Corpuscular Hemoglobin Concent 32, Red Cell Distribution Width 15.2H, Platelet Count 219, Mean Platelet Volume 8.9L, Immature Granulocyte % (Auto) 0, Neutrophils (%) (Auto) 78H, Lymphocytes (%) (Auto) 11L, Monocytes (%) (Auto) 7, Eosinophils (%) (Auto) 3, Basophils (%) (Auto) 0, Neutrophils # (Auto) 5.5, Lymphocytes # (Auto) 0.8L, Monocytes # (Auto) 0.5, Eosinophils # (Auto) 0.2, Basophils # (Auto) 0.0, Immature Granulocyte # (Auto) 0.0, Sodium Level 138, Potassium Level 4.8, Chloride Level 108H, Carbon Dioxide Level 20L, Anion Gap 10, Blood Urea Nitrogen 30H, Creatinine 2.17H, Estimat Glomerular Filtration Rate 29, BUN/Creatinine Ratio 14, Glucose Level 116H, Calcium Level 9.1, Corrected Calcium 9.0, Total Bilirubin 0.3, Aspartate Amino Transf (AST/SGOT) 19, Alanine Aminotransferase (ALT/SGPT) 17, Alkaline Phosphatase 88, Total Protein 7.5, Albumin 4.1, Thyroid Stimulating Hormone (TSH) 2.21 01/04/22 12:57: Urine Color YELLOW, Urine Clarity CLEAR, Urine pH 5.0, Urine Specific [place] 1.020, Urine Protein TRACEH, Urine Glucose (UA) NEGATIVE, Urine Ketones NEGATIVE, Urine Nitrite POSITIVEH, Urine Bilirubin NEGATIVE, Urine Urobilinogen 0.2, Urine Leukocyte Esterase 1+H, Urine RBC (Auto) TRACE-IH, Urine RBC 0-2, Urine WBC 50-100H, Urine Squamous Epithelial Cells NONE, Urine Crystals NONE, Urine Bacteria LARGEH, Urine Casts NONE, Urine Mucus NEGATIVE, Urine Culture Indicated YES, Urine Opiates Screen NEGATIVE, Urine Oxycodone Screen NEGATIVE, Urine Methadone Screen NEGATIVE, Urine Propoxyphene Screen NEGATIVE, Urine Barbiturates Screen NEGATIVE, Ur Tricyclic Antidepressants Screen POSITIVEH, Urine Phencyclidine Screen NEGATIVE, Urine Amphetamines Screen NEGATIVE, Urine Methamphetamines Screen NEGATIVE, Urine Benzodiazepines Screen NEGATIVE, Urine Cocaine Screen NEGATIVE, Urine Cannabinoids Screen NEGATIVE 01/05/22 05:37: White Blood Count 7.1, Red Blood Count 4.05L, Hemoglobin 12.6L, Hematocrit 38L, Mean Corpuscular Volume 95, Mean Corpuscular Hemoglobin 31, Mean Corpuscular Hemoglobin Concent 33, Red Cell Distribution Width 15.0H, Platelet Count 240, Mean Platelet Volume 9.4, Immature Granulocyte % (Auto) 0, Neutrophils (%) (Auto) 78H, Lymphocytes (%) (Auto) 10L, Monocytes (%) (Auto) 7, Eosinophils (%) (Auto) 4, Basophils (%) (Auto) 0, Neutrophils # (Auto) 5.6, Lymphocytes # (Auto) 0.7L, Monocytes # (Auto) 0.5, Eosinophils # (Auto) 0.3, Basophils # (Auto) 0.0, Immature Granulocyte # (Auto) 0.0, Sodium Level 139, Potassium Level 4.7, Chloride Level 109H, Carbon Dioxide Level 16L, Anion Gap 14, Blood Urea Nitrogen 23H, Creatinine 1.75H, Estimat Glomerular Filtration Rate 37, BUN/Creatinine Ratio 13, Glucose Level 127H, Calcium Level 9.3, Corrected Calcium 9.4, Total Bilirubin 0.2, Aspartate Amino Transf (AST/SGOT) 17, Alanine Aminotransferase (ALT/SGPT) 16, Alkaline Phosphatase 84, Total Protein 7.6, Albumin 3.9 01/06/22 05:34: White Blood Count 6.1, Red Blood Count 3.71L, Hemoglobin 11.3L, Hematocrit 35L, Mean Corpuscular Volume 94, Mean Corpuscular Hemoglobin 31, Mean Corpuscular Hemoglobin Concent 32, Red Cell Distribution Width 15.0H, Platelet Count 219, Mean Platelet Volume 9.4, Immature Granulocyte % (Auto) 1, Neutrophils (%) (Auto) 72, Lymphocytes (%) (Auto) 13, Monocytes (%) (Auto) 10, Eosinophils (%) (Auto) 4, Basophils (%) (Auto) 1, Neutrophils # (Auto) 4.4, Lymphocytes # (Auto) 0.8L, Monocytes # (Auto) 0.6, Eosinophils # (Auto) 0.3, Basophils # (Auto) 0.0, Immature Granulocyte # (Auto) 0.0, Sodium Level 141, Potassium Level 4.2, Chlor stefani Level 111H, Carbon Dioxide Level 20L, Anion Gap 10, Blood Urea Nitrogen 29H, Creatinine 2.01H, Estimat Glomerular Filtration Rate 32, BUN/Creatinine Ratio 14, Glucose Level 135H, Calcium Level 9.0, Corrected Calcium 9.3, Total Bilirubin 0.2, Aspartate Amino Transf (AST/SGOT) 16, Alanine Aminotransferase (ALT/SGPT) 12, Alkaline Phosphatase 77, Total Protein 7.0, Albumin 3.6 01/07/22 05:25: White Blood Count 5.9, Red Blood Count 3.73L, Hemoglobin 11.3L, Hematocrit 36L, Mean Corpuscular Volume 96, Mean Corpuscular Hemoglobin 30, Mean Corpuscular Hemoglobin Concent 32, Red Cell Distribution Width 15.2H, Platelet Count 218, Mean Platelet Volume 9.6, Immature Granulocyte % (Auto) 1, Neutrophils (%) (Auto) 62, Lymphocytes (%) (Auto) 20, Monocytes (%) (Auto) 11, Eosinophils (%) (Auto) 6, Basophils (%) (Auto) 1, Neutrophils # (Auto) 3.7, Lymphocytes # (Auto) 1.2, Monocytes # (Auto) 0.6, Eosinophils # (Auto) 0.4H, Basophils # (Auto) 0.0, Immature Granulocyte # (Auto) 0.0, Sodium Level 141, Potassium Level 4.4, Chloride Level 110H, Carbon Dioxide Level 19L, Anion Gap 12, Blood Urea Nitrogen 34H, Creatinine 2.71#H, Estimat Glomerular Filtration Rate 22, BUN/Creatinine Ratio 13, Glucose Level 101, Calcium Level 8.9, Corrected Calcium 9.1, Total Bilirubin 0.2, Aspartate Amino Transf (AST/SGOT) 14, Alanine Aminotransferase (ALT/SGPT) 12, Alkaline Phosphatase 76, Total Protein 7.2, Albumin 3.7 01/08/22 04:50: White Blood Count 5.0, Red Blood Count 3.50L, Hemoglobin 10.7L, Hematocrit 33L, Mean Corpuscular Volume 95, Mean Corpuscular Hemoglobin 31, Mean Corpuscular Hemoglobin Concent 32, Red Cell Distribution Width 15.1H, Platelet Count 217, Mean Platelet Volume 9.4, Immature Granulocyte % (Auto) 1, Neutrophils (%) (Auto) 67, Lymphocytes (%) (Auto) 16, Monocytes (%) (Auto) 10, Eosinophils (%) (Auto) 6, Basophils (%) (Auto) 1, Neutrophils # (Auto) 3.3, Lymphocytes # (Auto) 0.8L, Monocytes # (Auto) 0.5, Eosinophils # (Auto) 0.3, Basophils # (Auto) 0.0, Immature Granulocyte # (Auto) 0.0, Sodium Level 138, Potassium Level 5.0, Chloride Level 110H, Carbon Dioxide Level 19L, Anion Gap 9, Blood Urea Nitrogen 36H, Creatinine 2.40H, Estimat Glomerular Filtration Rate 25, BUN/Creatinine Ratio 15, Glucose Level 117H, Calcium Level 8.8, Corrected Calcium 9.2, Total Bilirubin 0.2, Aspartate Amino Transf (AST/SGOT) 16, Alanine Aminotransferase (ALT/SGPT) 13, Alkaline Phosphatase 75, Total Protein 6.8, Albumin 3.5 01/09/22 07:13: White Blood Count 4.1L, Red Blood Count 3.76L, Hemoglobin 11.5L, Hematocrit 35L, Mean Corpuscular Volume 93, Mean Corpuscular Hemoglobin 31, Mean Corpuscular Hemoglobin Concent 33, Red Cell Distribution Width 14.9H, Platelet Count 216, Mean Platelet Volume 9.2, Immature Granulocyte % (Auto) 1, Neutrophils (%) (Auto) 65, Lymphocytes (%) (Auto) 16, Monocytes (%) (Auto) 9, Eosinophils (%) (Auto) 7, Basophils (%) (Auto) 1, Neutrophils # (Auto) 2.7, Lymphocytes # (Auto) 0.7L, Monocytes # (Auto) 0.4, Eosinophils # (Auto) 0.3, Basophils # (Auto) 0.0, Immature Granulocyte # (Auto) 0.1, Sodium Level 140, Potassium Level 5.3H, Chloride Level 110H, Carbon Dioxide Level 19L, Anion Gap 11, Blood Urea Nitrogen 30H, Creatinine 1.87H, Estimat Glomerular Filtration Rate 34, BUN/Creatinine Ratio 16, Glucose Level 111H, Calcium Level 9.2, Corrected Calcium 9.5, Total Bilirubin 0.2, Aspartate Amino Transf (AST/SGOT) 17, Alanine Aminotransferase (ALT/SGPT) 17, Alkaline Phosphatase 73, Total Protein 7.0, Albumin 3.6 01/10/22 05:22: White Blood Count 5.4, Red Blood Count 3.79L, Hemoglobin 11.5L, Hematocrit 36L, Mean Corpuscular Volume 95, Mean Corpuscular Hemoglobin 30, Mean Corpuscular Hemoglobin Concent 32, Red Cell Distribution Width 14.9H, Platelet Count 237, Mean Platelet Volume 9.5, Immature Granulocyte % (Auto) 2, Neutrophils (%) (Auto) 66, Lymphocytes (%) (Auto) 15, Monocytes (%) (Auto) 8, Eosinophils (%) (Auto) 8, Basophils (%) (Auto) 1, Neutrophils # (Auto) 3.6, Lymphocytes # (Auto) 0.8L, Monocytes # (Auto) 0.4, Eosinophils # (Auto) 0.4H, Basophils # (Auto) 0.1, Immature Granulocyte # (Auto) 0.1, Sodium Level 138, Potassium Level 4.8, Chloride Level 110H, Carbon Dioxide Level 16L, Anion Gap 12, Blood Urea Nitrogen 32H, Creatinine 1.97H, Estimat Glomerular Filtration Rate 32, BUN/Creatinine Ratio 16, Glucose Level 120H, Calcium Level 9.0, Corrected Calcium 9.2, Total Bi lirubin 0.2, Aspartate Amino Transf (AST/SGOT) 21, Alanine Aminotransferase (ALT/SGPT) 19, Alkaline Phosphatase 79, Total Protein 7.2, Albumin 3.7 Microbiology 01/04/22 Urine Culture - Final, Complete Klebsiella oxytoca Klebsiella oxytoca#2 Mixed Bacterial Gisela Pending Labs Microbiology Date/Time Source Procedure Growth Status 01/04/22 12:57 Urine Clean Catch Urine Culture - Final Klebsiella oxytoca Klebsiella oxytoca#2 Mixed Bacterial Gisela Complete Laboratory Tests 01/04/22 12:21: White Blood Count 7.0, Red Blood Count 3.81, Hemoglobin 11.7, Hematocrit 37, Mean Corpuscular Volume 97, Mean Corpuscular Hemoglobin 31, Mean Corpuscular Hemoglobin Concent 32, Red Cell Distribution Width 15.2, Platelet Count 219, Mean Platelet Volume 8.9, Immature Granulocyte % (Auto) 0, Neutrophils (%) (Auto) 78, Lymphocytes (%) (Auto) 11, Monocytes (%) (Auto) 7, Eosinophils (%) (Auto) 3, Basophils (%) (Auto) 0, Neutrophils # (Auto) 5.5, Lymphocytes # (Auto) 0.8, Monocytes # (Auto) 0.5, Eosinophils # (Auto) 0.2, Basophils # (Auto) 0.0, Immature Granulocyte # (Auto) 0.0, Sodium Level 138, Potassium Level 4.8, Chloride Level 108, Carbon Dioxide Level 20, Anion Gap 10, Blood Urea Nitrogen 30, Creatinine 2.17, Estimat Glomerular Filtration Rate 29, BUN/Creatinine Ratio 14, Glucose Level 116, Calcium Level 9.1, Corrected Calcium 9.0, Total Bilirubin 0.3, Aspartate Amino Transf (AST/SGOT) 19, Alanine Aminotransferase (ALT/SGPT) 17, Alkaline Phosphatase 88, Total Protein 7.5, Albumin 4.1, Thyroid Stimulating Hormone (TSH) 2.21 01/04/22 12:57: Urine Color YELLOW, Urine Clarity CLEAR, Urine pH 5.0, Urine Specific [place] 1.020, Urine Protein TRACE, Urine Glucose (UA) NEGATIVE, Urine Ketones NEGATIVE, Urine Nitrite POSITIVE, Urine Bilirubin NEGATIVE, Urine Urobilinogen 0.2, Urine Leukocyte Esterase 1+, Urine RBC (Auto) TRACE-I, Urine RBC 0-2, Urine WBC 50- 100, Urine Squamous Epithelial Cells NONE, Urine Crystals NONE, Urine Bacteria LARGE, Urine Casts NONE, Urine Mucus NEGATIVE, Urine Culture Indicated YES, Urine Opiates Screen NEGATIVE, Urine Oxycodone Screen NEGATIVE, Urine Methadone Screen NEGATIVE, Urine Propoxyphene Screen NEGATIVE, Urine Barbiturates Screen NEGATIVE, Ur Tricyclic Antidepressants Screen POSITIVE, Urine Phencyclidine Screen NEGATIVE, Urine Amphetamines Screen NEGATIVE, Urine Methamphetamines Screen NEGATIVE, Urine Benzodiazepines Screen NEGATIVE, Urine Cocaine Screen NEGATIVE, Urine Cannabinoids Screen NEGATIVE 01/05/22 05:37: White Blood Count 7.1, Red Blood Count 4.05, Hemoglobin 12.6, Hematocrit 38, Mean Corpuscular Volume 95, Mean Corpuscular Hemoglobin 31, Mean Corpuscular Hemoglobin Concent 33, Red Cell Distribution Width 15.0, Platelet Count 240, Mean Platelet Volume 9.4, Immature Granulocyte % (Auto) 0, Neutrophils (%) (A uto) 78, Lymphocytes (%) (Auto) 10, Monocytes (%) (Auto) 7, Eosinophils (%) (Auto) 4, Basophils (%) (Auto) 0, Neutrophils # (Auto) 5.6, Lymphocytes # (Auto) 0.7, Monocytes # (Auto) 0.5, Eosinophils # (Auto) 0.3, Basophils # (Auto) 0.0, Immature Granulocyte # (Auto) 0.0, Sodium Level 139, Potassium Level 4.7, Chloride Level 109, Carbon Dioxide Level 16, Anion Gap 14, Blood Urea Nitrogen 23, Creatinine 1.75, Estimat Glomerular Filtration Rate 37, BUN/Creatinine Ratio 13, Glucose Level 127, Calcium Level 9.3, Corrected Calcium 9.4, Total Bilirubin 0.2, Aspartate Amino Transf (AST/SGOT) 17, Alanine Aminotransferase (ALT/SGPT) 16, Alkaline Phosphatase 84, Total Protein 7.6, Albumin 3.9 01/06/22 05:34: White Blood Count 6.1, Red Blood Count 3.71, Hemoglobin 11.3, Hematocrit 35, Mean Corpuscular Volume 94, Mean Corpuscular Hemoglobin 31, Mean Corpuscular Hemoglobin Concent 32, Red Cell Distribution Width 15.0, Platelet Count 219, Mean Platelet Volume 9.4, Immature Granulocyte % (Auto) 1, Neutrophils (%) (Auto) 72, Lymphocytes (%) (Auto) 13, Monocytes (%) (Auto) 10, Eosinophils (%) (Auto) 4, Basophils (%) (Auto) 1, Neutrophils # (Auto) 4.4, Lymphocytes # (Auto) 0.8, Monocytes # (Auto) 0.6, Eosinophils # (Auto) 0.3, Basophils # (Auto) 0.0, Immature Granulocyte # (Auto) 0.0, Sodium Level 141, Potassium Level 4.2, Chloride Level 111, Carbon Dioxide Level 20, Anion Gap 10, Blood Urea Nitrogen 29, Creatinine 2.01, Estimat Glomerular Filtration Rate 32, BUN/Creatinine Ratio 14, Glucose Level 135, Calcium Level 9.0, Corrected Calcium 9.3, Total Bilirubin 0.2, Aspartate Amino Transf (AST/SGOT) 16, Alanine Aminotransferase (ALT/SGPT) 12, Alkaline Phosphatase 77, Total Protein 7.0, Albumin 3.6 01/07/22 05:25: White Blood Count 5.9, Red Blood Count 3.73, Hemoglobin 11.3, Hematocrit 36, Mean Corpuscular Volume 96, Mean Corpuscular Hemoglobin 30, Mean Corpuscular H emoglobin Concent 32, Red Cell Distribution Width 15.2, Platelet Count 218, Mean Platelet Volume 9.6, Immature Granulocyte % (Auto) 1, Neutrophils (%) (Auto) 62, Lymphocytes (%) (Auto) 20, Monocytes (%) (Auto) 11, Eosinophils (%) (Auto) 6, Basophils (%) (Auto) 1, Neutrophils # (Auto) 3.7, Lymphocytes # (Auto) 1.2, Monocytes # (Auto) 0.6, Eosinophils # (Auto) 0.4, Basophils # (Auto) 0.0, Immature Granulocyte # (Auto) 0.0, Sodium Level 141, Potassium Level 4.4, Chloride Level 110, Carbon Dioxide Level 19, Anion Gap 12, Blood Urea Nitrogen 34, Creatinine 2.71, Estimat Glomerular Filtration Rate 22, BUN/Creatinine Ratio 13, Glucose Level 101, Calcium Level 8.9, Corrected Calcium 9.1, Total Bilirubin 0.2, Aspartate Amino Transf (AST/SGOT) 14, Alanine Aminotransferase (ALT/SGPT) 12, Alkaline Phosphatase 76, Total Protein 7.2, Albumin 3.7 01/08/22 04:50: White Blood Count 5.0, Red Blood Count 3.50, Hemoglobin 10.7, Hematocrit 33, Mean Corpuscular Volume 95, Mean Corpuscular Hemoglobin 31, Mean Corpuscular Hemoglobin Concent 32, Red Cell Distribution Width 15.1, Platelet Count 217, Mean Platelet Volume 9.4, Immature Granulocyte % (Auto) 1, Neutrophils (%) (Auto) 67, Lymphocytes (%) (Auto) 16, Monocytes (%) (Auto) 10, Eosinophils (%) (Auto) 6, Basophils (%) (Auto) 1, Neutrophils # (Auto) 3.3, Lymphocytes # (Auto) 0.8, Monocytes # (Auto) 0.5, Eosinophils # (Auto) 0.3, Basophils # (Auto) 0.0, Immature Granulocyte # (Auto) 0.0, Sodium Level 138, Potassium Level 5.0, Chloride Level 110, Carbon Dioxide Level 19, Anion Gap 9, Blood Urea Nitrogen 36, Creatinine 2.40, Estimat Glomerular Filtration Rate 25, BUN/Creatinine Ratio 15, Glucose Level 117, Calcium Level 8.8, Corrected Calcium 9.2, Total Bilirubin 0.2, Aspartate Amino Transf (AST/SGOT) 16, Alanine Aminotransferase (ALT/SGPT) 13, Alkaline Phosphatase 75, Total Protein 6.8, Albumin 3.5 01/09/22 07:13: White Blood Count 4.1, Red Blood Count 3.76, Hemoglobin 11.5, Hematocrit 35, Mean Corpuscular Volume 93, Mean Corpuscular Hemoglobin 31, Mean Corpuscular Hemoglobin Concent 33, Red Cell Distribution Width 14.9, Platelet Count 216, Mean Platelet Volume 9.2, Immature Granulocyte % (Auto) 1, Neutrophils (%) (Auto) 65, Lymphocytes (%) (Auto) 16, Monocytes (%) (Auto) 9, Eosinophils (%) (A uto) 7, Basophils (%) (Auto) 1, Neutrophils # (Auto) 2.7, Lymphocytes # (Auto) 0.7, Monocytes # (Auto) 0.4, Eosinophils # (Auto) 0.3, Basophils # (Auto) 0.0, Immature Granulocyte # (Auto) 0.1, Sodium Level 140, Potassium Level 5.3, Chloride Level 110, Carbon Dioxide Level 19, Anion Gap 11, Blood Urea Nitrogen 30, Creatinine 1.87, Estimat Glomerular Filtration Rate 34, BUN/Creatinine Ratio 16, Glucose Level 111, Calcium Level 9.2, Corrected Calcium 9.5, Total Bilirubin 0.2, Aspartate Amino Transf (AST/SGOT) 17, Alanine Aminotransferase (ALT/SGPT) 17, Alkaline Phosphatase 73, Total Protein 7.0, Albumin 3.6 01/10/22 05:22: White Blood Count 5.4, Red Blood Count 3.79, Hemoglobin 11.5, Hematocrit 36, Mean Corpuscular Volume 95, Mean Corpuscular Hemoglobin 30, Mean Corpuscular Hemoglobin Concent 32, Red Cell Distribution Width 14.9, Platelet Count 237, Mean Platelet Volume 9.5, Immature Granulocyte % (Auto) 2, Neutrophils (%) (Auto) 66, Lymphocytes (%) (Auto) 15, Monocytes (%) (Auto) 8, Eosinophils (%) (Auto) 8, Basophils (%) (Auto) 1, Neutrophils # (Auto) 3.6, Lymphocytes # (Auto) 0.8, Monocytes # (Auto) 0.4, Eosinophils # (Auto) 0.4, Basophils # (Auto) 0.1, Immature Granulocyte # (Auto) 0.1, Sodium Level 138, Potassium Level 4.8, Chloride Level 110, Carbon Dioxide Level 16, Anion Gap 12, Blood Urea Nitrogen 32, Creatinine 1.97, Estimat Glomerular Filtration Rate 32, BUN/Creatinine Ratio 16, Glucose Level 120, Calcium Level 9.0, Corrected Calcium 9.2, Total Bilirubin 0.2, Aspartate Amino Transf (AST/SGOT) 21, Alanine Aminotransferase (ALT/SGPT) 19, Alkaline Phosphatase 79, Total Protein 7.2, Albumin 3.7 Discharge Home Medications: Active Scripts Active Quetiapine Fumarate 200 Mg Tablet 200 Mg PO DAILY noon Quetiapine Fumarate 100 Mg Tablet 100 Mg PO HS Ativan (Lorazepam) 0.5 Mg Tablet 0.5 Mg PO BID PRN Tylenol Arthritis (Acetaminophen) 650 Mg Tablet.er 1,300 Mg PO TID Senna Lax (Sennosides) 8.6 Mg Tablet 8.6 Mg PO BID Clonidine HCl 0.1 Mg Tablet 0.1 Mg PO Q4HR PRN Heparin Sodium (Heparin Sodium,Porcine) 5,000 Unit/Ml Vial 5,000 Units SC Q8H Cyclobenzaprine HCl 5 Mg Tablet 5 Mg PO BID PRN Potassium Gluconate 595 Mg (99 Mg) Tablet.er 99 Mg PO DAILY PRN Furosemide 40 Mg Tablet 40 Mg PO DAILY PRN Melatonin 10 Mg Tablet 10 Mg PO HS Atorvastatin Calcium 80 Mg Tablet 80 Mg PO HS Pramipexole Dihydrochloride (Pramipexole Di-HCl) 1 Mg Tablet 0.5 Mg PO 0700,1200 Lisinopril 2.5 Mg Tablet 2.5 Mg PO DAILY Quetiapine Fumarate 25 Mg Tablet 75 Mg PO DAILY TAKES 3 (25MG) TABS Cranberry (Cranberry Extract) 500 Mg Tablet 500 Mg PO DAILY Flonase Allergy Relief (Fluticasone Propionate) 50 Mcg/Actuation [place].susp 1 [place] NS BID PRN Ventolin Hfa (Albuterol Sulfate) 1 Puff Puff 2 Puff INH BID PRN Coricidin Hbp Cough & Cold Tab (Dextromethorphan HBr/Chlor-Mal) 4 Mg-30 Mg Tablet 1 Each PO HS Iron (Ferrous Sulfate) 325 Mg (65 Mg Iron) Tablet 325 Mg PO DAILY Diltiazem HCl 30 Mg Tablet 30 Mg PO DAILY Mirapex (Pramipexole Di-HCl) 1 Mg Tablet 1.5 Mg PO HS Isosorbide Mononitrate ER (Isosorbide Mononitrate) 60 Mg Tab 60 Mg PO HS Isosorbide Mononitrate ER (Isosorbide Mononitrate) 30 Mg Tab.er.24h 30 Mg PO DAILY Omeprazole 40 Mg Capsule.dr 40 Mg PO DAILY Tylenol (Acetaminophen) 325 Mg Capsule 650 Mg PO BID PRN Levothyroxine Sodium 50 Mcg Tablet 50 Mcg PO DAILY Instructions to patient/family Please see electronic discharge instructions given to patient. HERMINIO GOODMAN DO Jan 10, 2022 13:03
--- NOTE | 2022-01-10 13:10 | Progress Note ---
WESLEY COPPOLA 01/10/22 1310: Subjective Date Seen by a Provider: Jan 10, 2022 Time Seen by a Provider: 10:15 Subjective/Events-last exam Feeling well and ready to discharge No changes to report No questions or concerns Hospital Course: 86yo M with h/o vascular dementia, bladder and renal cancer with urostomy was admitted following presentation to the ED yesterday for increased confusion and REESE. Per ED note, pt has experienced worsening dementia and pt "wandered off" from home. Pt was found by a neighbor and placed into DCF custody. This prompted the to bring the pt to the ED for evaluation d/t increasingly altered behavior. Workup was unremarkable except for a positive UA for klebisella/ enterobacter. Pt was given a dose of Rocephin and then admitted to the floor. Since being admitted, pt's mentation has improved but is only oriented to self which appears to be baseline. His antibiotics were changed to Cefdinir 300mg BID for a total of 10 day course which will finish 01/13/22. Pt has had no issues with BMs or urostomy output since being admitted and tolerated his diet well. Pt has been able to ambulate with walker without issue. Pt continues to have no complaints and is stable for discharge. Pt is expected to be discharged to [facility] in [place] pending insurance approval. Review of Systems Neurological: Confusion Objective Exam Last Set of Vital Signs Vital Signs Date Time Temp Pulse Resp B/P (MAP) Pulse Ox O2 Delivery O2 Flow Rate FiO2 01/10/22 08:00 95 Room Air 01/10/22 07:29 36.1 83 18 138/72 (94) Capillary Refill : Less Than 3 Seconds I&O Intake and Output 01/10/22 00:00 Intake Total 1720 ml Output Total 1350 ml Balance 370 ml Intake Oral 1670 ml IV Total 50 ml Output Urine Total 1350 ml # Bowel Movements 1 General: Alert, Cooperative, No Acute Distress, Other (only oriented to person, not to place, time, or situation) HEENT: Atraumatic, EOMI Neck: Supple Lungs: Clear to Auscultation, Normal Air Movement Heart: Regular Rate, Normal S1, Normal S2, No Murmurs Abdomen: Normal Bowel Sounds, Soft, No Tenderness, No Hepatosplenomegaly, No Masses Extremities: No Clubbing, No Cyanosis, No Edema, Normal Pulses, No Tenderness/Swelling Skin: No Rashes, No Breakdown, No Significant Lesion Neuro: Normal Gait, Normal Speech, Normal Tone Psych/Mental Status: Mood NL Results Lab Laboratory Tests 01/10/22 05:22: White Blood Count 5.4, Red Blood Count 3.79L, Hemoglobin 11.5L, Hematocrit 36L, Mean Corpuscular Volume 95, Mean Corpuscular Hemoglobin 30, Mean Corpuscular Hemoglobin Concent 32, Red Cell Distribution Width 14.9H, Platelet Count 237, Mean Platelet Volume 9.5, Immature Granulocyte % (Auto) 2, Neutrophils (%) (Auto) 66, Lymphocytes (%) (Auto) 15, Monocytes (%) (Auto) 8, Eosinophils (%) (Auto) 8, Basophils (%) (Auto) 1, Neutrophils # (Auto) 3.6, Lymphocytes # (Auto) 0.8L, Monocytes # (Auto) 0.4, Eosinophils # (Auto) 0.4H, Basophils # (Auto) 0.1, Immature Granulocyte # (Auto) 0.1, Sodium Level 138, Potassium Level 4.8, Chloride Level 110H, Carbon Dioxide Level 16L, Anion Gap 12, Blood Urea Nitrogen 32H, Creatinine 1.97H, Estimat Glomerular Filtration Rate 32, BUN/Creatinine Ratio 16, Glucose Level 120H, Calcium Level 9.0, Corrected Calcium 9.2, Total Bilirubin 0.2, Aspartate Amino Transf (AST/SGOT) 21, Alanine Aminotransferase (ALT/SGPT) 19, Alkaline Phosphatase 79, Total Protein 7.2, Albumin 3.7 Microbiology 01/04/22 Urine Culture - Final, Complete Klebsiella oxytoca Klebsiella oxytoca#2 Mixed Bacterial Gisela Assessment/Plan Assessment/Plan Assess & Plan/Chief Complaint Assessment: Mr. Leonid Kennedy is a 86 y/o male with PMH of renal and bladder cancer with urostomy, CKD, and Dementia who presented for increased confusion and headache and found to have a klebsiella/enterobacter positive UTI. He has been treated with ceftriaxone and now cefdinir and has responded well. 1. Complicated UTI - UA positive for Klebisella/enterobacter - s/p Ceftriaxone (01/04 - 01/08) > Cont Cefdinir 300mg BID until 01/13/22 2. 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 - continues to have output without change > continue to monitor 3. Leukocytosis, resolved > Continue to monitor 4. Dementia - Oriented to self at baseline - PT/OT 5. Insomnia - melatonin prn Dispo: okay to discharge to [facility] BRIANNA GOODMAN DO 01/11/22 0535: Supervisory-Addendum Brief Verification & Attestation Participated in pt care: history, MDM, physical Personally performed: exam, history, MDM, supervision of care Care discussed with: Medical Student Procedures: n/a Results interpretation: Verified all documentation Verification and Attestation of Medical Student E/M Service A medical student performed and documented this service in my presence. I reviewed and verified all information documented by the medical student and made modifications to such information, when appropriate. I personally performed the physical exam and medical decision making. Brianna Goodman, Jan 11, 2022,05:35 WESLEY COPPOLA Jan 10, 2022 13:10 BRIANNA GOODMAN DO Jan 11, 2022 05:35
[2022-01-10 13:30] VITALS: BP 138/72
== END 2022-01-10 13:30 | DRG 690 ==
LOC: EDUNIT# 12:07 → ER 12:09 → UNDOADMOB 15:25 → 4TH 15:25 → INTOOBSV 01-07 08:00 → OBSVTOIN 01-07 08:00 → UNDODISIN 01-10 13:30
PROVIDERS: ADMIT Internal Medicine; ATTEND Internal Medicine
DX: N39.0 Urinary tract infection, site not specified (principal); F01.50 Vascular dementia, unspecified severity, without behavioral disturbance, psychotic disturbance, mood disturbance, and anxiety; G47.00 Insomnia, unspecified; Z79.82 Long term (current) use of aspirin; Z79.01 Long term (current) use of anticoagulants; J44.9 Chronic obstructive pulmonary disease, unspecified; E11.9 Type 2 diabetes mellitus without complications; I10 Essential (primary) hypertension; I25.10 Atherosclerotic heart disease of native coronary artery without angina pectoris; E78.00 Pure hypercholesterolemia, unspecified; M19.90 Unspecified osteoarthritis, unspecified site; E03.9 Hypothyroidism, unspecified; B96.1 Klebsiella pneumoniae [K. pneumoniae] as the cause of diseases classified elsewhere; D72.829 Elevated white blood cell count, unspecified; N18.9 Chronic kidney disease, unspecified; R53.81 Other malaise; Z95.5 Presence of coronary angioplasty implant and graft; Z95.1 Presence of aortocoronary bypass graft; I25.2 Old myocardial infarction; Z85.46 Personal history of malignant neoplasm of prostate; Z85.51 Personal history of malignant neoplasm of bladder; Z85.528 Personal history of other malignant neoplasm of kidney; Z90.79 Acquired absence of other genital organ(s); Z90.5 Acquired absence of kidney; Z87.891 Personal history of nicotine dependence; Z79.84 Long term (current) use of oral hypoglycemic drugs
CPT/HCPCS: 36415; 80053; 80306; 81000; 84443; 85025; 87077; 87088; 87186; 90662; 93005; G0378

== ENCOUNTER 2022-02-23 08:07 | Emergency (ER) | payer MEDICARE ==
[~2022-02-23] VITALS: Ht 172 cm; Wt 93.0 kg
[~2022-02-23 08:07] MED LIST changes: +ACET-2650 PO; +ATOR80TA64 PO; +ATOR80TA76 PO; +CLN.1T PO; +CYCL5TAB PO; +HEPA500018 SC; +LISI2.5T13 PO; +LORA-404 PO; +MELA10TA2 PO; +METF-397 PO; +POTA99TA18 PO; +PRAM1TAB5 PO; +QUET200T29 PO; +SNN187T PO
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
--- NOTE | 2022-02-23 09:38 | Diagnostic Imaging Report ---
INDICATION: Left posterior rib pain. COMPARISON: Radiographs of the chest from 10/18/2017 and also correlated with a more recent CT chest dated 10/18/2021. FINDINGS There are chronic interstitial changes and features of COPD with midline sternal wires intact. No effusion or pneumothorax. The hilar and mediastinal contours are stable. There is thoracic spondylosis with the vertebral statures stable. There is questionable irregularity laterally at the left 6th and 7th ribs which is not convincing. If there is chest wall pain, consider a dedicated rib radiographic series versus chest CT. No findings of pulmonary parenchymal or pleural injury, however. IMPRESSION: Clear lungs. No acute pleural pathology. Equivocal deformities laterally of some left mid ribs but no convincing acute injury found. Dictated by: Dictated on workstation # [id number]
[2022-02-23] MEDS ORDERED: LIDO-11 TP (09:59)
[2022-02-23] MEDS ORDERED: LIDOCAINE 4% (SALONPAS) PATCH ONE (10:15)
[2022-02-23 10:23] VITALS: BP 164/82
[2022-02-24] MEDS ORDERED: LIDOCAINE 4% (SALONPAS) PATCH TOP SCH (09:00)
== END 2022-02-23 10:22 | disposition home or self-care (01) ==
LOC: EDUNIT# 08:07 → ER 08:10
DX: R07.81 Pleurodynia (principal); R10.9 Unspecified abdominal pain
CPT/HCPCS: 71046

== ENCOUNTER 2022-12-28 00:55 | Emergency (ER) | payer MEDICARE ==
[~2022-12-28] VITALS: Ht 172 cm; Wt 74.0 kg
[2022-12-28 00:55] VITALS: BP 146/77
[~2022-12-28 00:55] MED LIST changes: +LIDO-11 TP; -MELA1TAB20 PO; +MELA1TAB72 PO; -ROSU20TA32 PO; +ROSU20TA73 PO; +SENN-341 PO; -SNN187T PO
[2022-12-28 01:18] LABS: BASOPHILS % (AUTO) 1 % (0-10); EOSINOPHILS # (AUTO) 0.3 10^3/uL (0.0-0.3); EOSINOPHILS % (AUTO) 6 % (0-10); HEMATOCRIT 38 % (40-54); HEMOGLOBIN 12.8 g/dL (13.3-17.7); LYMPHOCYTES # (AUTO) 0.8 10^3/uL (1.0-4.0); LYMPHOCYTES % (AUTO) 18 % (12-44); MEAN CORPUSCULAR HEMOGLOBIN 32 pg (25-34); MEAN CORPUSCULAR HGB CONC 34 g/dL (32-36); MEAN CORPUSCULAR VOLUME 94 fL (80-99); MEAN PLATELET VOLUME 9.8 fL (9.0-12.2); MONOCYTES # (AUTO) 0.5 10^3/uL (0.0-1.0); MONOCYTES % (AUTO) 11 % (0-12); NEUTROPHILS % (AUTO) 64 % (42-75); PLATELET COUNT 152 10^3/uL (130-400); WHITE BLOOD COUNT 4.7 10^3/uL (4.3-11.0)
[2022-12-28 01:24] LABS: ALBUMIN 3.7 GM/DL (3.2-4.5); POTASSIUM 3.6 MMOL/L (3.6-5.0)
[2022-12-28 01:25] LABS: CALCIUM 8.6 MG/DL (8.5-10.1)
[2022-12-28 01:26] LABS: INR 1.1 (0.8-1.4); PROTHROMBIN TIME PATIENT 14.1 SEC (12.2-14.7); TOTAL PROTEIN 6.7 GM/DL (6.4-8.2)
[2022-12-28 01:28] LABS: BILIRUBIN,TOTAL 0.4 MG/DL (0.1-1.0)
[2022-12-28 01:30] LABS: CREATININE SERUM 1.94 MG/DL (0.60-1.30)
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
[2022-12-28 01:33] LABS: MAGNESIUM 1.9 MG/DL (1.6-2.4)
[2022-12-28] MEDS ORDERED: NS IV 500 ML 500 ML IV ONE (02:30)
--- NOTE | 2022-12-28 06:49 | Diagnostic Imaging Report ---
INDICATION: Chest pain TECHNIQUE: Single view chest 1:42 AM CORRELATION STUDY: 02/23/2022 FINDINGS: Prior sternotomy sternal wires intact. Heart size and mediastinum are enlarged and prominent. Vasculature overall appearing normal at followup. The lungs are clear with no consolidating infiltrate. There is no significant effusion or pneumothorax. IMPRESSION: 1. Stable cardiac enlargement without overt failure. Dictated by: Dictated on workstation # [id number]
== END 2022-12-28 05:45 | disposition home or self-care (01) ==
LOC: EDUNIT# 00:55 → ER 01:00
DX: R07.9 Chest pain, unspecified (principal); R94.4 Abnormal results of kidney function studies; Z86.79 Personal history of other diseases of the circulatory system
CPT/HCPCS: 36415; 71045; 80053; 83735; 83874; 84484; 85025; 85610; 85730; 93005; 93041

== ENCOUNTER 2023-02-10 02:22 | Emergency (ER) | payer MEDICARE ==
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
[2023-02-10 03:23] LABS: BASOPHILS % (AUTO) 1 % (0-10); EOSINOPHILS # (AUTO) 0.3 10^3/uL (0.0-0.3); EOSINOPHILS % (AUTO) 6 % (0-10); HEMATOCRIT 38 % (40-54); HEMOGLOBIN 12.5 g/dL (13.3-17.7); LYMPHOCYTES # (AUTO) 0.8 10^3/uL (1.0-4.0); LYMPHOCYTES % (AUTO) 15 % (12-44); MEAN CORPUSCULAR HEMOGLOBIN 31 pg (25-34); MEAN CORPUSCULAR HGB CONC 33 g/dL (32-36); MEAN CORPUSCULAR VOLUME 96 fL (80-99); MEAN PLATELET VOLUME 9.4 fL (9.0-12.2); MONOCYTES # (AUTO) 0.4 10^3/uL (0.0-1.0); MONOCYTES % (AUTO) 8 % (0-12); NEUTROPHILS # (AUTO) 3.5 10^3/uL (1.8-7.8); NEUTROPHILS % (AUTO) 70 % (42-75); PLATELET COUNT 193 10^3/uL (130-400)
[2023-02-10 03:36] LABS: TOTAL PROTEIN 7.4 GM/DL (6.4-8.2)
[2023-02-10 03:38] LABS: BILIRUBIN,TOTAL 0.5 MG/DL (0.1-1.0)
[2023-02-10 03:40] LABS: CREATININE SERUM 1.83 MG/DL (0.60-1.30)
[2023-02-10 03:55] LABS: BILIRUBIN,URINE NEGATIVE (NEGATIVE); CLARITY,URINE CLOUDY; COLOR,URINE YELLOW; GLUCOSE, URINE (UA) NEGATIVE (NEGATIVE); KETONES,URINE NEGATIVE (NEGATIVE); LEUKOCYTE ESTERASE ,URINE 2+ (NEGATIVE); NITRITE,URINE NEGATIVE (NEGATIVE); PH,URINE 5.5 (5-9); PROTEIN,URINE 2+ (NEGATIVE)
[2023-02-10 03:56] LABS: BACTERIA,URINE MODERATE /HPF; HYALINE CASTS, URINE 0-2 /LPF; WBC,URINE 25-50 /HPF; YEAST,URINE LARGE /HPF
[2023-02-10 04:02] LABS: TSH (THYROID ANALYZER) 2.66 UIU/ML (0.35-4.94)
[2023-02-10 07:01] VITALS: BP 158/98
== END 2023-02-10 07:36 | disposition home or self-care (01) ==
LOC: EDUNIT# 02:22 → ER 02:24
DX: F03.918 Unspecified dementia, unspecified severity, with other behavioral disturbance (principal); R82.71 Bacteriuria
CPT/HCPCS: 36415; 80053; 81000; 84443; 85025; 86141; 87077; 87088; 87186

== ENCOUNTER → 2023-02-28 | Outpatient (CLI) | payer MEDICARE ==
[~2023-02-28] MED LIST changes: +NITR-65 PO
[2023-02-28 19:16] LABS: BILIRUBIN,URINE NEGATIVE (NEGATIVE); CLARITY,URINE CLEAR; COLOR,URINE YELLOW; GLUCOSE, URINE (UA) NEGATIVE (NEGATIVE); KETONES,URINE NEGATIVE (NEGATIVE); LEUKOCYTE ESTERASE ,URINE 1+ (NEGATIVE); NITRITE,URINE NEGATIVE (NEGATIVE); PROTEIN,URINE 1+ (NEGATIVE)
[2023-02-28 19:17] LABS: BACTERIA,URINE FEW /HPF; HYALINE CASTS, URINE RARE /LPF
== END ==
LOC: LABNPT 19:00
PROVIDERS: ATTEND Family Medicine
DX: Z01.89 Encounter for other specified special examinations (principal)
CPT/HCPCS: 81000; 87077; 87088